=== PATIENT | male | born 1960 | race Caucasian/White ===

== ENCOUNTER 2021-07-12 14:18 | Emergency (ER) | payer OTHER ==
[2021-07-12] MEDS ORDERED: NA CHLORIDE 0.9% 1,000 ML ONE (14:55)
[2021-07-12] MEDS ORDERED: LORazepam 2 MG/ML VIAL ONE (14:59)
[2021-07-12 15:04] LABS: Absolute Lymphocytes (CBC) 1.4 K/uL (0.7-4.9); Basophils % 0.7 % (0-1.3); Hematocrit 42.2 % (39.6-49.0); Lymphocytes % 11.2 % (15.3-44.8); MPV 8.3 fL (7.6-11.3); RBC Red Blood Cell Count 4.46 M/uL (4.33-5.43)
[2021-07-12 15:08] LABS: Protime INR 1.11
[2021-07-12 15:29] LABS: Barbiturates NEGATIVE (NEGATIVE); Benzodiazepines NEGATIVE (NEGATIVE); Cocaine NEGATIVE (NEGATIVE); METHAMPHETAM NEGATIVE (NEGATIVE); Methadone NEGATIVE (NEGATIVE); Opiates NEGATIVE (NEGATIVE); Phencyclidine NEGATIVE (NEGATIVE); THC Cannibis NEGATIVE (NEGATIVE)
[2021-07-12 15:34] LABS: Urine Blood Negative (Negative); Urine Glucose Negative (Negative); Urine Protein Negative (Negative); Urine Specific Gravity 1.015 (1.005-1.030); Urine pH 5.5 (5.0-7.0)
[2021-07-12 15:39] LABS: ALT/SGPT 18 U/L (12-78); AST/SGOT 10 U/L (15-37); Albumin 3.2 g/dL (3.4-5.0); Alkaline Phosphatase 99 U/L (45-117); BUN Blood Urea Nitrogen 9 mg/dL (7-18); Bicarbonate 26 mmol/L (21-32); Bilirubin Direct < 0.1 mg/dL (0-0.2); Bilirubin Total 0.2 mg/dL (0.2-1.0); Glucose Level 164 mg/dL (74-106); Potassium 3.5 mmol/L (3.5-5.1); Protein, Total 6.6 g/dL (6.4-8.2); Sodium Level 140 mmol/L (136-145); Troponin (Emerg Dept Use Only) < 0.02 ng/mL (0.0-0.045)
--- NOTE | 2021-07-12 15:39 | RAD REPORT ---
EXAM DESCRIPTION: CT - Head Brain Wo Cont - 07/12/2021 3:29 pm CLINICAL HISTORY: DIZZINESS COMPARISON: HEAD BRAIN W O CONTRAST dated 01/15/2015 TECHNIQUE: All CT scans are performed using dose optimization technique as appropriate and may inclu de automated exposure control or mA/KV adjustment according to patient size. FINDINGS: No intracranial hemorrhage, hydrocephalus or extra-axial fluid collection.No areas of brai n edema or evidence of midline shift. The paranasal sinuses and mastoids are clear. The calvarium is intact. IMPRESSION: No acute intracranial abnormality.
--- NOTE | 2021-07-12 16:52 | ER ---
Nurse's Notes [facility] Name: Raghav Lispcomb Age: 61 yrs Sex: Male : 1960 Arrival Date: 07/12/2021 Time: 14:21 Bed 14 Private MD: Diagnosis: Other specified anxiety disorders Presentation: 07/12 14:22 Chief complaint: EMS states: toned out to [place] for anxiety attack. Coronavirus ld1 screen: At this time, the client does not indicate any symptoms associated with coronavirus-19. Ebola Screen: No symptoms or risks identified at this time. Initial Sepsis Screen: Does the patient meet any 2 criteria? No. Patient's initial sepsis screen is negative. Does the patient have a suspected source of infection? No. Patient's initial sepsis screen is negative. Risk Assessment: Do you want to hurt yourself or someone else? Patient reports no desire to harm self or others. Onset of symptoms was July 12, 2021. 14:22 Method Of Arrival: EMS: [facility] ld1 14:22 Acuity: SINDY 3 ld1 Triage Assessment: 14:24 General: Appears in no apparent distress. comfortable, Behavior is cooperative, ld1 appropriate for age, anxious. Pain: Denies pain. EENT: No signs and/or symptoms were reported regarding the EENT system. Neuro: Level of Consciousness is awake, alert, obeys commands, Oriented to person, place, time, situation. Neuro: Reports anxiety . Cardiovascular: Capillary refill < 3 seconds Patient's skin is warm and dry. Cardiovascular: Rhythm is sinus rhythm. Respiratory: Airway is patent Respiratory effort is even, unlabored, Respiratory pattern is regular, symmetrical. GI: Abdomen is flat, non-distended. : No signs and/or symptoms were reported regarding the genitourinary system. Derm: No signs and/or symptoms reported regarding the dermatologic system. Musculoskeletal: No signs and/or symptoms reported regarding the musculoskeletal system. Historical: - Allergies: 14:24 No Known Allergies; ld1 - Home Meds: 14:24 metformin Oral [Active]; ld1 - PMHx: 14:24 Pacemaker; Schizophrenia; Diabetes mellitus; ld1 - PSHx: 14:24 None; ld1 - Immunization history:: Adult Immunizations up to date, Client reports receiving the 2nd dose of the Covid vaccine. - Social history:: Smoking status: Patient reports the use of cigarette tobacco products, smokes two packs cigarettes per day. Patient/guardian denies using alcohol. Screenin:34 Abuse screen: Denies threats or abuse. Denies injuries from another. Nutritional jt3 screening: No deficits noted. Tuberculosis screening: No symptoms or risk factors identified. Fall Risk None identified. Assessment: 14:34 General: Appears unkempt, Behavior is calm, cooperative. Pain: Denies pain. Neuro: jt3 Reports dizziness, since Pt. reports dizziness since yesterday and is hearing voices. Pt. has past medical hx of schizophrenia. Alert and oriented x4. Denies pain at this time. Airway patent. Denies chest pain. Cardiovascular: No deficits noted. Respiratory: No deficits noted. 15:27 Reassessment: CSSRS: Low Risk. Patient answered "No" to 1,2, and 6. . jt3 16:30 Reassessment: Pt. states his anxiety is better after the Ativan medication. Pt. resting jt3 comfortably in bed. . Vital Signs: 14:22 BP 106 / 54; Pulse 90; Resp 22; Temp 98.7(TE); Pulse Ox 98% on R/A; Weight 86.18 kg; ld1 Height 5 ft. 11 in. (180.34 cm); Pain 0/10; 16:54 BP 109 / 70; Pulse 76; Resp 17; Pulse Ox 100% on R/A; jt3 14:22 Body Mass Index 26.50 (86.18 kg, 180.34 cm) ld1 ED Course: 14:21 Patient arrived in ED. jt3 14:22 Lizandro Fan PA is PHCP. jmm 14:22 Sukhwinder Zuluaga MD is Attending Physician. jmm 14:24 Triage completed. ld1 14:24 Arm band placed on right wrist. ld1 14:34 Lenny Clemons RN is Primary Nurse. jt3 14:34 Patient has correct armband on for positive identification. Bed in low position. Call jt3 light in reach. Side rails up X2. 14:34 No provider procedures requiring assistance completed. Inserted saline lock: 20 gauge jt3 in right antecubital area, using aseptic technique. 15:27 CT Head Brain wo Cont In Process Unspecified. EDMS 16:59 IV discontinued, intact, bleeding controlled, No redness/swelling at site. Pressure jt3 dressing applied. Administered Medications: 15:15 Drug: NS 0.9% 1000 ml Route: IV; Rate: 1 bolus; Site: right antecubital; jt3 15:15 Drug: Ativan (LORazepam) 1 mg Route: IVP; Site: right antecubital; jt3 16:00 Follow up: Response: No adverse reaction; Anxiety decreased jt3 Outcome: 16:51 Discharge ordered by MD. disla 16:58 Discharged to home ambulatory. jt3 16:58 Condition: improved 16:58 Discharge instructions given to patient. 17:01 Patient left the ED. jt3 Signatures: Dispatcher [employer] EDMS Lizandro Fan PA PA jmm Dibbern, Lauren RN RN ld1 Lenny Clemons RN RN jt3
--- NOTE | 2021-07-12 16:52 | EDPHYS ---
Physician Documentation [facility] Name: Raghav Lipscomb Age: 61 yrs Sex: Male : 1960 Arrival Date: 07/12/2021 Time: 14:21 Bed 14 Private MD: ED Physician Sukhwinder Zuluaga HPI: 07/12 14:46 This 61 yrs old Male presents to ER via EMS with complaints of anxiety. jmm 14:46 The patient presents to the emergency department with anxiety. Onset: The jmm symptoms/episode began/occurred today. Past psychiatric history: schizophrenia. Associated signs and symptoms: Pertinent positives; Dizziness, Pertinent negatives:. The patient has experienced similar episodes in the past, several times. This is a 61-year-old male with history of diabetes mellitus, schizophrenia that presents emerged department with complaints of acute onset anxiety beginning today. Patient denies any acute stressor states that it comes from "just living" patient denies SI or HI. Patient also states having a bit of dizziness with which normally accompanies his anxiety panic attacks. Historical: - Allergies: 14:24 No Known Allergies; ld1 - Home Meds: 14:24 metformin Oral [Active]; ld1 - PMHx: 14:24 Pacemaker; Schizophrenia; Diabetes mellitus; ld1 - PSHx: 14:24 None; ld1 - Immunization history:: Adult Immunizations up to date, Client reports receiving the 2nd dose of the Covid vaccine. - Social history:: Smoking status: Patient reports the use of cigarette tobacco products, smokes two packs cigarettes per day. Patient/guardian denies using alcohol. ROS: 14:46 Constitutional: Negative for fever, chills, and weight loss, Cardiovascular: Negative jmm for chest pain, palpitations, and edema, Respiratory: Negative for shortness of breath, cough, wheezing, and pleuritic chest pain. 14:46 Neuro: Positive for dizziness. 14:46 Psych: Positive for anxiety. 14:46 All other systems are negative. Exam: 14:46 Constitutional: This is a well developed, well nourished patient who is awake, alert, jmm and in no acute distress. Head/Face: atraumatic. Eyes: EOMI, no conjunctival erythema appreciated ENT: Moist Mucus Membranes Neck: Trachea midline, Supple Chest/axilla: Normal chest wall appearance and motion. Cardiovascular: Regular rate and rhythm. No edema appreciated Respiratory: Normal respirations, no respiratory distress appreciated Abdomen/GI: Non distended, soft Back: Normal ROM Skin: General appearance color normal MS/ Extremity: Moves all extremities, no obvious deformities appreciated, no edema noted to the lower extremities 14:46 Neuro: Facial tic noted. 14:46 Psych: Behavior/mood is cooperative, anxious. 16:26 ECG was reviewed by the Attending Physician. rn Vital Signs: 14:22 BP 106 / 54; Pulse 90; Resp 22; Temp 98.7(TE); Pulse Ox 98% on R/A; Weight 86.18 kg; ld1 Height 5 ft. 11 in. (180.34 cm); Pain 0/10; 16:54 BP 109 / 70; Pulse 76; Resp 17; Pulse Ox 100% on R/A; jt3 14:22 Body Mass Index 26.50 (86.18 kg, 180.34 cm) ld1 MDM: 14:45 Patient medically screened. [facility] 16:50 Data reviewed: vital signs, nurses notes. Counseling: I had a detailed discussion with naif the patient and/or guardian regarding: the historical points, exam findings, and any diagnostic results supporting the discharge/admit diagnosis, lab results, radiology results, the need for outpatient follow up, to return to the emergency department if symptoms worsen or persist or if there are any questions or concerns that arise at home. ED course: Patient states feeling much better. Most likely anxiety episode the patient experienced. Patient is otherwise advised to follow-up with his psychiatrist/PCP and otherwise given strict return precautions. Patient understood and agrees plan of care.. 07/12 14:46 Order name: Acetaminophen; Complete Time: 15:48 [facility] 07/12 14:46 Order name: Basic Metabolic Panel; Complete Time: 15:48 [facility] 07/12 14:46 Order name: CBC with Diff; Complete Time: 15:18 [facility] 07/12 14:46 Order name: ETOH Level; Complete Time: 15:44 [facility] 07/12 14:46 Order name: Hepatic Function; Complete Time: 15:48 [facility] 07/12 14:46 Order name: PT-INR; Complete Time: 15:18 [facility] 07/12 14:46 Order name: Ptt, Activated; Complete Time: 15:18 [facility] 07/12 14:46 Order name: Salicylate; Complete Time: 15:39 [facility] 07/12 14:46 Order name: Urine Drug Screen; Complete Time: 15:33 [facility] 07/12 14:46 Order name: Troponin (emerg Dept Use Only); Complete Time: 15:48 [facility] 07/12 14:50 Order name: CT Head Brain wo Cont; Complete Time: 15:44 [facility] 07/12 15:33 Order name: Urine Dipstick-Ancillary; Complete Time: 15:39 [facility] 07/12 14:46 Order name: EKG; Complete Time: 14:47 [facility] 07/12 14:46 Order name: EKG - Nurse/Tech; Complete Time: 15:01 [facility] 07/12 14:46 Order name: IV Saline Lock; Complete Time: 15:01 [facility] 07/12 14:46 Order name: Labs collected and sent; Complete Time: 15:01 [facility] 07/12 14:46 Order name: Suicide Screening ([place]); Complete Time: 15:15 [facility] 07/12 14:46 Order name: Urine Dipstick-Ancillary (obtain specimen); Complete Time: 15:37 [facility] EC:26 Rate is 87 beats/min. Rhythm is regular. QRS [place] is Normal. ID interval is normal. QRS rn interval is normal. QT interval is normal. No Q waves. T waves are Normal. No ST changes noted. Clinical impression: Normal ECG. Interpreted by me. Reviewed by me. Administered Medications: 15:15 Drug: NS 0.9% 1000 ml Route: IV; Rate: 1 bolus; Site: right antecubital; jt3 15:15 Drug: Ativan (LORazepam) 1 mg Route: IVP; Site: right antecubital; jt3 16:00 Follow up: Response: No adverse reaction; Anxiety decreased jt3 Disposition: 17:35 Co-signature as Attending Physician, Sukhwinder Zuluaga MD I agree with the assessment and rn plan of care. Attestation: The patient's history, exam findings, diagnostics, and a summary of any interventions or procedures was reviewed in detail with Lizandro ESQUIVEL. Disposition Summary: 07/12/21 16:51 Discharge Ordered Location: Home [facility] Condition: Stable jm Diagnosis - Other specified anxiety disorders [facility] Followup: [facility] - With: Private Physician - When: 2 - 3 days - Reason: Recheck today's complaints, Continuance of care, Re-evaluation by your physician Discharge Instructions: - Discharge Summary Sheet naif - Managing Anxiety, Adult naif Forms: - Medication Reconciliation Form naif - Thank You Letter naif - Antibiotic Education naif - Prescription Opioid Use naif Signatures: Dispatcher [employer] EDLizandro Resendiz PA PA jmm Nieto, Roman, MD MD rn Dibbern, Lauren, RN RN ld1 TeLenny león RN RN jt3
[2021-07-12 18:29] VITALS: TEMP 98.7
[2021-07-12 18:30] VITALS: BP 109/70; O2SAT 100
--- OUTSIDE RECORDS SUMMARY | 2021-07-22 09:59 | XMS REPORT | Continuity of Care Document ---
:1960 Author Organization [facility] t Address [address] [place] [address] Care Team Providers Name Role Phone Luana MORALES Primary Care Physician ALTAMIRANO Attending Clinician Unavailable Luana MORALES Attending Clinician LUANA Attending Clinician Unavailable SHADE EDWARDS Attending Clinician Unavailable Nurse, Pob Immunization Attending Clinician Unavailable Shade Edwards DO Attending Clinician SISSY K.Jeffery. Attending Clinician Unavailable 2, Lab Attending Clinician Unavailable Radha LEONARDO Attending Clinician Unavailable Aj MORALES Attending Clinician Lex MORALES S Attending Clinician Bebeto MORALES Attending Clinician YARITZA Attending Clinician Unavailable Lily Iverson Attending Clinician TRAVIS SOARES Attending Clinician Unavailable Provider, Urgent Care Attending Clinician Unavailable Travis Dominique Attending Clinician Sanju BASS Attending Clinician Unavailable Neal LEONARDO L Attending Clinician Unavailable Margarita Marley Attending Clinician See DO, J Attending Clinician Pob, Lab Main Attending Clinician Unavailable Camille MORALES, C Attending Clinician Rome LEIJA, G Attending Clinician Doctor Unassigned, Name Attending Clinician Unavailable King ANDREW, C Attending Clinician Bebeto MORALES Admitting Clinician Payers Payer Name Policy Type Policy Number Effective Date Expiration Date Eunice finney MEDICARE PART A [id number] 2002 \\T\\ B 00:00:00 MEDICAID [facility] [id number] 2020 00:00:00 [employer] MEDICARE [id number] 2019 00:00:00 [employer] [facility] [id number] 2019 [facility] 00:00:00 [facility] MEDICARE [id number] 2021 COMPLETE CHOICE 00:00:00 [id number] 2019 PLUS CHOICE 00:00:00 Problems Condition Condition Condition Status Onset Resolution Last Treating Co mments Source Name Details Category Date Date Treatment Clinician Date Hypotensio Hypotensio Disease Active U nivers n n 3-15 ity of 00:00: [address] Fall at Fall at Disease Active Univers home, home, 3-03 ity of sequela sequela 00:00: [address] Injury of Injury of Disease Active Uni vers head, head, 3-03 ity of sequela sequela 00:00: [place] [facility] Hypovolemi Hypovolemi Disease Active U nivers a a 1-26 ity of 00:00: [address] Orthostati Orthostati Disease Active U nivers c c 1-25 ity of hypotensio hypotensio 00:00: [place] [facility] Disease Active 2019-09 Unive rs discharge discharge 2- ity of follow-up [place]up [place] [facility] Essential Essential Disease Active 2019-09 Uni vers hypertensi hypertensi 2-01 it y of on on 00:00: [address] Cigarette Cigarette Disease Active 2019-09 Uni vers nicotine nicotine 2-01 [place] dependence [place] without 00 Medical complicati complicati Br anch on on Hyperchole Hyperchole Disease Active U nivers sterolemia sterolemia 5-05 it y of 00:00: [place] [facility] Hypothyroi Hypothyroi Disease Active U nivers dism, dism, 5-05 ity of unspecifie unspecifie [place] d type 00 [facility] Diabetes Diabetes Disease Active Unive rs mellitus mellitus 5-05 ity of type 1.5 type 1.5 00:00: [place] 00 Medical Branch Need for Need for Disease Active 2018-09 Unive rs 23-polyval 23-polyval 0-01 it y of ent ent 00:00: [place] pneumococc pneumococc 00 Me dical al al Branch polysaccha polysaccha ride ride vaccine vaccine Need for Need for Disease Active 2018-09 Unive rs influenza influenza 0-01 ity of vaccinatio vaccinatio [place] 00 [facility] Need for Need for Disease Active 2018-09 Unive rs hepatitis hepatitis 0-01 ity of C C 00:00: [place] screening screening 00 Medi arnel test test Branch Diabetic Diabetic Disease Active 2018-09 Unive rs eye exam eye exam 0-01 ity of 00:00: [place] 00 Medical Branch Need for Need for Disease Active 2018-09 Unive rs Tdap Tdap 0-01 ity of vaccinatio vaccinatio [place] [facility] Type 2 Type 2 Disease Active Univers diabetes diabetes 9-14 ity of mellitus mellitus 00:00: [place] without without 00 Medical complicati complicati Br anch on, on, without without long-term long-term current current use of use of insulin insulin Hearing Hearing Disease Active 2016-09 Univers loss loss 2-05 ity of 00:00: [place] 00 Medical Branch Multiple Multiple Disease Active Unive rs pulmonary pulmonary 6-08 ity of nodules nodules 00:00: [place] determined determined 00 Me dical by by Branch computed computed tomography tomography of lung of lung Pacemaker Pacemaker Disease Active Uni vers 6-08 ity of 00:00: [place] [facility] 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 ICD10 Diagnosis Term Receiving Clerk Utility Tobacco Tobacco Disease Active Univers abuse abuse 12-31 ity of 00:00: [place] 00 [facility] Vitamin D Vitamin D Disease Active Overview: Univers deficiency deficiency 12-31 Formattin ity of 00:00: g of this [place] 00 note Medical might be Branch different from the original. ICD10 Diagnosis Term Receiving Clerk Utility Schizophre Schizophre Disease Active U nivers troy, troy, 12-31 ity of unspecifie unspecifie [place] d type 00 [facility] Allergies, Adverse Reactions, Alerts Allergy Allergy Status Severity Reaction(s) Onset Inactive Treating Comm ents Source Name Type Date Date Clinician NO KNOWN Drug Active Univers ALLERGIE Class ity of S [facility] Social History Social Habit Start Date Stop Date Quantity Comments Source History of tobacco Cigarette Smoker University of use [facility] Exposure to Not sure [facility] SARS-CoV-2 (event) [facility] Alcohol intake 2021-03-17 2021-03-17 0 /d University of 00:00:00 00:00:00 [facility] Tobacco Comment 2020-11-21 2020-11-21 1 pk per day Univers ity of 00:00:00 00:00:00 [facility] Cigarettes smoked 2014-12-31 2014-12-31 Univers ity of current (pack per 00:00:00 00:00:00 ) - Reported Branch Cigarette 2014-12-31 2014-12-31 University of pack-years 00:00:00 00:00:00 [facility] Tobacco use and 2014-12-31 2014-12-31 Never used Universit y of exposure 00:00:00 00:00:00 [place] [facility] Sex [birth year] Universit y of 00:00:00 00:00:00 [facility] Smoking Status Start Date Stop Date Source Current every day smoker 2014-12-31 00[facility]00:00 [facility] Ordered Filled Start Stop Current Ordering Indication Dosage Frequency Signature Comments Components Source Medication Medication Date Date Medication? Clinician (SIG) Name Name levothyroxi Yes 25ug Take 1 Univ ers ne 25 mcg 7-02 tablet by ity o f tablet 00:00: mouth [place] 00 every Medical morning. Branch midodrine Yes [id number] Take 1 Un [place] 2.5 mg 7-02 tablet by ity of tablet 00:00: mouth [place] 00 daily PRN Medical if BP Branch <80/60. glipiZIDE 5 Yes [id number] 5mg Take 1 Univers mg tablet 7-02 tablet by ity o f 00:00: mouth [place] 00 daily. Medical Branch levothyroxi Yes 25ug Take 1 Univ ers ne 25 mcg 7-02 tablet by ity o f tablet 00:00: mouth [place] 00 every Medical morning. Branch midodrine Yes [id number] Take 1 Un [place] 2.5 mg 7-02 tablet by ity of tablet 00:00: mouth [place] 00 daily PRN Medical if BP Branch <80/60. glipiZIDE 5 Yes [id number] 5mg Take 1 Univers mg tablet 7-02 tablet by ity o f 00:00: mouth [place] 00 daily. Medical Branch levothyroxi Yes 25ug Take 1 Univ ers ne 25 mcg 7-02 tablet by ity o f tablet 00:00: mouth [place] 00 every Medical morning. Branch midodrine Yes [id number] Take 1 Un [place] 2.5 mg 7-02 tablet by ity of tablet 00:00: mouth [place] 00 daily PRN Medical if BP Branch <80/60. glipiZIDE 5 Yes [id number] 5mg Take 1 Univers mg tablet 7-02 tablet by ity o f 00:00: mouth [place] 00 daily. Medical Branch levothyroxi Yes 25ug Take 1 Univ ers ne 25 mcg 7-02 tablet by ity o f tablet 00:00: mouth [place] 00 every Medical morning. Branch midodrine Yes [id number] Take 1 Un [place] 2.5 mg 7-02 tablet by ity of tablet 00:00: mouth [place] 00 daily PRN Medical if BP Branch <80/60. glipiZIDE 5 Yes [id number] 5mg Take 1 Univers mg tablet 7-02 tablet by ity o f 00:00: mouth [place] 00 daily. Medical Branch levothyroxi 0 Yes 25ug Take 1 Univ ers ne 25 mcg 7-02 tablet by ity o f tablet 00:00: mouth [place] 00 every Medical morning. Branch midodrine Yes [id number] Take 1 Un [place] 2.5 mg 7-02 tablet by ity of tablet 00:00: mouth [place] 00 daily PRN Medical if BP Branch <80/60. glipiZIDE 5 Yes [id number] 5mg Take 1 Univers mg tablet 7-02 tablet by ity o f 00:00: mouth [place] 00 daily. Medical Branch levothyroxi Yes 25ug Take 1 Univ ers ne 25 mcg 7-02 tablet by ity o f tablet 00:00: mouth [place] 00 every Medical morning. Branch midodrine Yes [id number] Take 1 Un [place] 2.5 mg 7-02 tablet by ity of tablet 00:00: mouth [place] 00 daily PRN Medical if BP Branch <80/60. levothyroxi Yes 25ug Take 1 Univ ers ne 25 mcg 7-02 tablet by ity o f tablet 00:00: mouth [place] 00 every Medical morning. Branch midodrine 2020- Yes [id number] Take 1 Un [place] 2.5 mg 7-02 tablet by ity of tablet 00:00: mouth [place] 00 daily PRN Medical if BP Branch <80/60. glipiZIDE 5 Yes [id number] 5mg Take 1 Univers mg tablet 7-02 tablet by ity o f 00:00: mouth [place] 00 daily. Medical Branch glipiZIDE 5 2020-0 Yes [id number] 5mg Take 1 Univers mg tablet 7-02 tablet by ity o f 00:00: mouth [place] 00 daily. Medical Branch levothyroxi 2020-0 Yes 25ug Take 1 Univ ers ne 25 mcg 7-02 tablet by ity o f tablet 00:00: mouth [place] 00 every Medical morning. Branch midodrine Yes [id number] Take 1 Un [place] 2.5 mg 7-02 tablet by ity of tablet 00:00: mouth [place] 00 daily PRN Medical if BP Branch <80/60. glipiZIDE 5 Yes [id number] 5mg Take 1 Univers mg tablet 7-02 tablet by ity o f 00:00: mouth [place] 00 daily. Medical Branch levothyroxi Yes 25ug Take 1 Univ ers ne 25 mcg 7-02 tablet by ity o f tablet 00:00: mouth [place] 00 every Medical morning. Branch midodrine Yes [id number] Take 1 Un [place] 2.5 mg 7-02 tablet by ity of tablet 00:00: mouth [place] 00 daily PRN Medical if BP Branch <80/60. glipiZIDE 5 Yes [id number] 5mg Take 1 Univers mg tablet 7-02 tablet by ity o f 00:00: mouth [place] 00 daily. Medical Branch levothyroxi Yes 25ug Take 1 Univ ers ne 25 mcg 7-02 tablet by ity o f tablet 00:00: mouth [place] 00 every Medical morning. Branch midodrine Yes [id number] Take 1 Un [place] 2.5 mg 7-02 tablet by ity of tablet 00:00: mouth [place] 00 daily PRN Medical if BP Branch <80/60. glipiZIDE 5 Yes [id number] 5mg Take 1 Univers mg tablet 7-02 tablet by ity o f 00:00: mouth [place] 00 daily. Medical Branch ATORVASTATI Yes [id number] TAKE ONE Univers N 40 mg 3-31 TABLET BY ity of tablet 00:00: MOUTH AT [place] 00 BEDTIME Medical Branch FUROSEMIDE 2020-0 Yes [id number] TAKE ONE Univers 20 mg 3-31 TABLET BY ity of tablet 00:00: MOUTH [place] 00 DAILY Medical Branch ATORVASTATI 2020- Yes [id number] TAKE ONE Univers N 40 mg 3-31 TABLET BY ity of tablet 00:00: MOUTH AT [place] 00 BEDTIME Medical Branch ATORVASTATI 2020- Yes [id number] TAKE ONE Univers N 40 mg 3-31 TABLET BY ity of tablet 00:00: MOUTH AT [place] [facility] Yes [id number] TAKE ONE Univers N 40 mg 3-31 TABLET BY ity of tablet 00:00: MOUTH AT [place] [facility] Yes [id number] TAKE ONE Univers N 40 mg 3-31 TABLET BY ity of tablet 00:00: MOUTH AT [place] [facility] Yes [id number] TAKE ONE Univers N 40 mg 3-31 TABLET BY ity of tablet 00:00: MOUTH AT [place] [facility] Yes [id number] TAKE ONE Univers N 40 mg 3-31 TABLET BY ity of tablet 00:00: MOUTH AT [place] [facility] Yes [id number] TAKE ONE Univers N 40 mg 3-31 TABLET BY ity of tablet 00:00: MOUTH AT [place] [facility] Yes [id number] TAKE ONE Univers N 40 mg 3-31 TABLET BY ity of tablet 00:00: MOUTH AT [place] [facility] Yes [id number] TAKE ONE Univers N 40 mg 3-31 TABLET BY ity of tablet 00:00: MOUTH AT [place] [facility] Yes [id number] TAKE ONE Univers N 40 mg 3-31 TABLET BY ity of tablet 00:00: MOUTH AT [place] [facility] Yes [id number] TAKE ONE Univers N 40 mg 3-31 TABLET BY ity of tablet 00:00: MOUTH AT [place] [facility] Yes [id number] TAKE ONE Univers N 40 mg 3-31 TABLET BY ity of tablet 00:00: MOUTH AT [place] [facility] Yes [id number] TAKE ONE Univers N 40 mg 3-31 TABLET BY ity of tablet 00:00: MOUTH AT [address] Yes [id number] TAKE ONE Univers N 40 mg 3-31 TABLET BY ity of tablet 00:00: MOUTH AT [place] [facility] Yes [id number] TAKE ONE Univers N 40 mg 3-31 TABLET BY ity of tablet 00:00: MOUTH AT [place] 00 BEDTIME Medical Branch FUROSEMIDE 2020-0 2020- No [id number] TAKE ONE Univers 20 mg 3-31 -02 TABLET BY ity of tablet 00:00: 00:00 MOUTH [place] 00 : DAILY Medical Branch FUROSEMIDE 0 2020- No [id number] TAKE ONE Univers 20 mg 3-31 04-02 TABLET BY ity of tablet 00:00: 00:00 [facility] 00 :00 DAILY Medical Branch midodrine Yes [id number] Take 1 Un [place] 2.5 mg 3-25 tablet by ity of tablet 00:00: mouth [place] daily PRN Medical if BP Branch <80/60. midodrine Yes [id number] Take 1 Un [place] 2.5 mg 3-25 tablet by ity of tablet 00:00: mouth [place] daily PRN Medical if BP Branch <80/60. midodrine Yes [id number] Take 1 Un [place] 2.5 mg 3-25 tablet by ity of tablet 00:00: mouth [place] daily PRN Medical if BP Branch <80/60. midodrine Yes [id number] Take 1 Un [place] 2.5 mg 3-25 tablet by ity of tablet 00:00: [facility] 00 daily PRN Medical if BP Branch <80/60. midodrine Yes [id number] Take 1 Un [place] 2.5 mg 3-25 tablet by ity of tablet 00:00: [facility] daily PRN Medical if BP Branch <80/60. midodrine Yes [id number] Take 1 Un [place] 2.5 mg 3-25 tablet by ity of tablet 00:00: mouth [place] 00 daily PRN Medical if BP Branch <80/60. midodrine Yes [id number] Take 1 [facility] [place] 2.5 mg 3-25 tablet by ity of tablet 00:00: mouth [place] 00 daily PRN Medical if BP Branch <80/60. midodrine Yes [id number] Take 1 [facility] [place] 2.5 mg 3-25 tablet by ity of tablet 00:00: mouth [place] 00 daily PRN Medical if BP Branch <80/60. midodrine Yes [id number] Take 1 [facility] [place] 2.5 mg 3-25 tablet by ity of tablet 00:00: mouth [place] 00 daily PRN Medical if BP Branch <80/60. midodrine Yes [id number] Take 1 [facility] [place] 2.5 mg 3-25 tablet by ity of tablet 00:00: mouth [place] 00 daily PRN Medical if BP Branch <80/60. midodrine 2020- No [id number] Take 1 U nivers 2.5 mg 3-25 -02 tablet by ity of tablet 00:00: 00:00 mouth [place] 00 :00 daily PRN Medical if BP Branch <80/60. midodrine 2020- No [id number] Take 1 U nivers 2.5 mg 3-25 - tablet by ity of tablet 00:00: 00:00 mouth [place] 00 :00 daily PRN Medical if BP Branch <80/60. prazosin 2020- No 2mg Take 2 mg Uni vers HCl 3-19 03-19 by mouth 2 ity of (PRAZOSIN 17:08: 00:00 (two) [place] ORAL) 09 :00 times Medical daily as Branch needed for Insomnia. prazosin 2020- No 2mg Take 2 mg Uni vers HCl 3-19 03-19 by mouth 2 ity of (PRAZOSIN 17:08: 00:00 (two) [place] ORAL) 09 :00 times Medical daily as Branch needed for Insomnia. midodrine Yes [id number] 2.5mg Take 1 U nivers 2.5 mg 3-19 tablet by ity of tablet 00:00: mouth [place] 00 daily. Medical Branch nicotine 7 Yes [id number] 1{patch Apply 1 Univers mg/24 hr 3-19 } Patch to ity of patch 00:00: area(s) [place] 00 every 24 Medical (twenty-fo Branch ur) hours. Apply 21mg patch daily x 6 weeks; then apply 14mf patch daily x 2 weeks; then apply 7mg patch daily x 2 weeks. Stop smoking on initiation of therapy nicotine 14 2020- Yes [id number] 1{patch Apply 1 Univers mg/24 hr 3-19 } Patch to ity of patch 00:00: area(s) [place] 00 every 24 Medical (twenty-fo Branch ur) hours. Apply 21mg patch daily x 6 weeks; then apply 14mf patch daily x 2 weeks; then apply 7mg patch daily x 2 weeks. Stop smoking on initiation of therapy nicotine Yes [id number] 1{patch Apply 1 Univers mg/24 hr 3-19 } Patch to ity of patch 00:00: area(s) [place] 00 daily. Medical Apply 21mg Branch patch daily x 6 weeks; then apply 14mf patch daily x 2 weeks; then apply 7mg patch daily x 2 weeks. Stop smoking on initiation of therapy nicotine Yes [id number] 1{patch Apply 1 Univers mg/24 hr 3-19 } Patch to ity of patch 00:00: area(s) [place] 00 every 24 Medical (twenty-fo Branch ur) hours. Apply 21mg patch daily x 6 weeks; then apply 14mf patch daily x 2 weeks; then apply 7mg patch daily x 2 weeks. Stop smoking on initiation of therapy nicotine Yes [id number] 1{patch Apply 1 Univers mg/24 hr 3-19 } Patch to ity of patch 00:00: area(s) [place] 00 every 24 Medical (twenty-fo Branch ur) hours. Apply 21mg patch daily x 6 weeks; then apply 14mf patch daily x 2 weeks; then apply 7mg patch daily x 2 weeks. Stop smoking on initiation of therapy nicotine Yes [id number] 1{patch Apply 1 Univers mg/24 hr 3-19 } Patch to ity of patch 00:00: area(s) [place] 00 daily. Medical Apply 21mg Branch patch daily x 6 weeks; then apply 14mf patch daily x 2 weeks; then apply 7mg patch daily x 2 weeks. Stop smoking on initiation of therapy nicotine Yes [id number] 1{patch Apply 1 Univers mg/24 hr 3-19 } Patch to ity of patch 00:00: area(s) [place] 00 every 24 Medical (twenty-fo Branch ur) hours. Apply 21mg patch daily x 6 weeks; then apply 14mf patch daily x 2 weeks; then apply 7mg patch daily x 2 weeks. Stop smoking on initiation of therapy nicotine Yes [id number] 1{patch Apply 1 Univers mg/24 hr 3-19 } Patch to ity of patch 00:00: area(s) [place] 00 every 24 Medical (twenty-fo Branch ur) hours. Apply 21mg patch daily x 6 weeks; then apply 14mf patch daily x 2 weeks; then apply 7mg patch daily x 2 weeks. Stop smoking on initiation of therapy nicotine Yes [id number] 1{patch Apply 1 Univers mg/24 hr 3-19 } Patch to ity of patch 00:00: area(s) [place] 00 daily. Medical Apply 21mg Branch patch daily x 6 weeks; then apply 14mf patch daily x 2 weeks; then apply 7mg patch daily x 2 weeks. Stop smoking on initiation of therapy nicotine Yes [id number] 1{patch Apply 1 Univers mg/24 hr 3-19 } Patch to ity of patch 00:00: area(s) [place] 00 every 24 Medical (twenty-fo Branch ur) hours. Apply 21mg patch daily x 6 weeks; then apply 14mf patch daily x 2 weeks; then apply 7mg patch daily x 2 weeks. Stop smoking on initiation of therapy nicotine Yes [id number] 1{patch Apply 1 Univers mg/24 hr 3-19 } Patch to ity of patch 00:00: area(s) [place] 00 every 24 Medical (twenty-fo Branch ur) hours. Apply 21mg patch daily x 6 weeks; then apply 14mf patch daily x 2 weeks; then apply 7mg patch daily x 2 weeks. Stop smoking on initiation of therapy nicotine Yes [id number] 1{patch Apply 1 Univers mg/24 hr 3-19 } Patch to ity of patch 00:00: area(s) [place] 00 daily. Medical Apply 21mg Branch patch daily x 6 weeks; then apply 14mf patch daily x 2 weeks; then apply 7mg patch daily x 2 weeks. Stop smoking on initiation of therapy nicotine Yes [id number] 1{patch Apply 1 Univers mg/24 hr 3-19 } Patch to ity of patch 00:00: area(s) [place] 00 every 24 Medical (twenty-fo Branch ur) hours. Apply 21mg patch daily x 6 weeks; then apply 14mf patch daily x 2 weeks; then apply 7mg patch daily x 2 weeks. Stop smoking on initiation of therapy nicotine Yes [id number] 1{patch Apply 1 Univers mg/24 hr 3-19 } Patch to ity of patch 00:00: area(s) [place] 00 every 24 Medical (twenty-fo Branch ur) hours. Apply 21mg patch daily x 6 weeks; then apply 14mf patch daily x 2 weeks; then apply 7mg patch daily x 2 weeks. Stop smoking on initiation of therapy nicotine Yes [id number] 1{patch Apply 1 Univers mg/24 hr 3-19 } Patch to ity of patch 00:00: area(s) [place] 00 daily. Medical Apply 21mg Branch patch daily x 6 weeks; then apply 14mf patch daily x 2 weeks; then apply 7mg patch daily x 2 weeks. Stop smoking on initiation of therapy nicotine Yes [id number] 1{patch Apply 1 Univers mg/24 hr 3-19 } Patch to ity of patch 00:00: area(s) [place] 00 every 24 Medical (twenty-fo Branch ur) hours. Apply 21mg patch daily x 6 weeks; then apply 14mf patch daily x 2 weeks; then apply 7mg patch daily x 2 weeks. Stop smoking on initiation of therapy nicotine Yes [id number] 1{patch Apply 1 Univers mg/24 hr 3-19 } Patch to ity of patch 00:00: area(s) [place] 00 every 24 Medical (twenty-fo Branch ur) hours. Apply 21mg patch daily x 6 weeks; then apply 14mf patch daily x 2 weeks; then apply 7mg patch daily x 2 weeks. Stop smoking on initiation of therapy nicotine Yes [id number] 1{patch Apply 1 Univers mg/24 hr 3-19 } Patch to ity of patch 00:00: area(s) [place] 00 daily. Medical Apply 21mg Branch patch daily x 6 weeks; then apply 14mf patch daily x 2 weeks; then apply 7mg patch daily x 2 weeks. Stop smoking on initiation of therapy nicotine Yes [id number] 1{patch Apply 1 Univers mg/24 hr 3-19 } Patch to ity of patch 00:00: area(s) [place] 00 every 24 Medical (twenty-fo Branch ur) hours. Apply 21mg patch daily x 6 weeks; then apply 14mf patch daily x 2 weeks; then apply 7mg patch daily x 2 weeks. Stop smoking on initiation of therapy nicotine Yes [id number] 1{patch Apply 1 Univers mg/24 hr 3-19 } Patch to ity of patch 00:00: area(s) [place] 00 every 24 Medical (twenty-fo Branch ur) hours. Apply 21mg patch daily x 6 weeks; then apply 14mf patch daily x 2 weeks; then apply 7mg patch daily x 2 weeks. Stop smoking on initiation of therapy nicotine Yes [id number] 1{patch Apply 1 Univers mg/24 hr 3-19 } Patch to ity of patch 00:00: area(s) [place] 00 daily. Medical Apply 21mg Branch patch daily x 6 weeks; then apply 14mf patch daily x 2 weeks; then apply 7mg patch daily x 2 weeks. Stop smoking on initiation of therapy nicotine Yes [id number] 1{patch Apply 1 Univers mg/24 hr 3-19 } Patch to ity of patch 00:00: area(s) [place] 00 every 24 Medical (twenty-fo Branch ur) hours. Apply 21mg patch daily x 6 weeks; then apply 14mf patch daily x 2 weeks; then apply 7mg patch daily x 2 weeks. Stop smoking on initiation of therapy nicotine Yes [id number] 1{patch Apply 1 Univers mg/24 hr 3-19 } Patch to ity of patch 00:00: area(s) [place] 00 every 24 Medical (twenty-fo Branch ur) hours. Apply 21mg patch daily x 6 weeks; then apply 14mf patch daily x 2 weeks; then apply 7mg patch daily x 2 weeks. Stop smoking on initiation of therapy nicotine Yes [id number] 1{patch Apply 1 Univers mg/24 hr 3-19 } Patch to ity of patch 00:00: area(s) [place] 00 daily. Medical Apply 21mg Branch patch daily x 6 weeks; then apply 14mf patch daily x 2 weeks; then apply 7mg patch daily x 2 weeks. Stop smoking on initiation of therapy nicotine Yes [id number] 1{patch Apply 1 Univers mg/24 hr 3-19 } Patch to ity of patch 00:00: area(s) [place] 00 every 24 Medical (twenty-fo Branch ur) hours. Apply 21mg patch daily x 6 weeks; then apply 14mf patch daily x 2 weeks; then apply 7mg patch daily x 2 weeks. Stop smoking on initiation of therapy nicotine Yes [id number] 1{patch Apply 1 Univers mg/24 hr 3-19 } Patch to ity of patch 00:00: area(s) [place] 00 every 24 Medical (twenty-fo Branch ur) hours. Apply 21mg patch daily x 6 weeks; then apply 14mf patch daily x 2 weeks; then apply 7mg patch daily x 2 weeks. Stop smoking on initiation of therapy nicotine Yes [id number] 1{patch Apply 1 Univers mg/24 hr 3-19 } Patch to ity of patch 00:00: area(s) [place] 00 daily. Medical Apply 21mg Branch patch daily x 6 weeks; then apply 14mf patch daily x 2 weeks; then apply 7mg patch daily x 2 weeks. Stop smoking on initiation of therapy nicotine Yes [id number] 1{patch Apply 1 Univers mg/24 hr 3-19 } Patch to ity of patch 00:00: area(s) [place] 00 every 24 Medical (twenty-fo Branch ur) hours. Apply 21mg patch daily x 6 weeks; then apply 14mf patch daily x 2 weeks; then apply 7mg patch daily x 2 weeks. Stop smoking on initiation of therapy nicotine Yes [id number] 1{patch Apply 1 Univers mg/24 hr 3-19 } Patch to ity of patch 00:00: area(s) [place] 00 every 24 Medical (twenty-fo Branch ur) hours. Apply 21mg patch daily x 6 weeks; then apply 14mf patch daily x 2 weeks; then apply 7mg patch daily x 2 weeks. Stop smoking on initiation of therapy nicotine Yes [id number] 1{patch Apply 1 [facility] mg/24 hr 3-19 } Patch to ity of patch 00:00: area(s) [place] 00 daily. Medical Apply 21mg Branch patch daily x 6 weeks; then apply 14mf patch daily x 2 weeks; then apply 7mg patch daily x 2 weeks. Stop smoking on initiation of therapy nicotine Yes [id number] 1{patch Apply 1 [facility] mg/24 hr 3-19 } Patch to ity of patch 00:00: area(s) [place] 00 every 24 Medical (twenty-fo Branch ur) hours. Apply 21mg patch daily x 6 weeks; then apply 14mf patch daily x 2 weeks; then apply 7mg patch daily x 2 weeks. Stop smoking on initiation of therapy nicotine Yes [id number] 1{patch Apply 1 [facility] mg/24 hr 3-19 } Patch to ity of patch 00:00: area(s) [place] 00 every 24 Medical (twenty-fo Branch ur) hours. Apply 21mg patch daily x 6 weeks; then apply 14mf patch daily x 2 weeks; then apply 7mg patch daily x 2 weeks. Stop smoking on initiation of therapy nicotine Yes [id number] 1{patch Apply 1 [facility] mg/24 hr 3-19 } Patch to ity of patch 00:00: area(s) [place] 00 daily. Medical Apply 21mg Branch patch daily x 6 weeks; then apply 14mf patch daily x 2 weeks; then apply 7mg patch daily x 2 weeks. Stop smoking on initiation of therapy nicotine Yes [id number] 1{patch Apply 1 [facility] mg/24 hr 3-19 } Patch to ity of patch 00:00: area(s) [place] 00 every 24 Medical (twenty-fo Branch ur) hours. Apply 21mg patch daily x 6 weeks; then apply 14mf patch daily x 2 weeks; then apply 7mg patch daily x 2 weeks. Stop smoking on initiation of therapy nicotine Yes [id number] 1{patch Apply 1 [facility] mg/24 hr 3-19 } Patch to ity of patch 00:00: area(s) [place] 00 every 24 Medical (twenty-fo Branch ur) hours. Apply 21mg patch daily x 6 weeks; then apply 14mf patch daily x 2 weeks; then apply 7mg patch daily x 2 weeks. Stop smoking on initiation of therapy nicotine 2020- Yes [id number] 1{patch Apply 1 [facility] mg/24 hr 3-19 } Patch to ity of patch 00:00: area(s) [place] 00 daily. Medical Apply 21mg Branch patch daily x 6 weeks; then apply 14mf patch daily x 2 weeks; then apply 7mg patch daily x 2 weeks. Stop smoking on initiation of therapy nicotine 2020- Yes [id number] 1{patch Apply 1 [facility] mg/24 hr 3-19 } Patch to ity of patch 00:00: area(s) [place] 00 every 24 Medical (twenty-fo Branch ur) hours. Apply 21mg patch daily x 6 weeks; then apply 14mf patch daily x 2 weeks; then apply 7mg patch daily x 2 weeks. Stop smoking on initiation of therapy nicotine 2020- Yes [id number] 1{patch Apply 1 [facility] mg/24 hr 3-19 } Patch to ity of patch 00:00: area(s) [place] 00 every 24 Medical (twenty-fo Branch ur) hours. Apply 21mg patch daily x 6 weeks; then apply 14mf patch daily x 2 weeks; then apply 7mg patch daily x 2 weeks. Stop smoking on initiation of therapy nicotine Yes [id number] 1{patch Apply 1 [facility] mg/24 hr 3-19 } Patch to ity of patch 00:00: area(s) [place] 00 daily. Medical Apply 21mg Branch patch daily x 6 weeks; then apply 14mf patch daily x 2 weeks; then apply 7mg patch daily x 2 weeks. Stop smoking on initiation of therapy nicotine Yes [id number] 1{patch Apply 1 [facility] mg/24 hr 3-19 } Patch to ity of patch 00:00: area(s) [place] 00 every 24 Medical (twenty-fo Branch ur) hours. Apply 21mg patch daily x 6 weeks; then apply 14mf patch daily x 2 weeks; then apply 7mg patch daily x 2 weeks. Stop smoking on initiation of therapy nicotine Yes [id number] 1{patch Apply 1 [facility] mg/24 hr 3-19 } Patch to ity of patch 00:00: area(s) [place] 00 every 24 Medical (twenty-fo Branch ur) hours. Apply 21mg patch daily x 6 weeks; then apply 14mf patch daily x 2 weeks; then apply 7mg patch daily x 2 weeks. Stop smoking on initiation of therapy nicotine 2020- Yes [id number] 1{patch Apply 1 [facility] mg/24 hr 3-19 } Patch to ity of patch 00:00: area(s) [place] 00 daily. Medical Apply 21mg Branch patch daily x 6 weeks; then apply 14mf patch daily x 2 weeks; then apply 7mg patch daily x 2 weeks. Stop smoking on initiation of therapy nicotine 7 2021-0 Yes [id number] 1{patch Apply 1 [facility] mg/24 hr 3-19 } Patch to ity of patch 00:00: area(s) [place] 00 every 24 Medical (twenty-[facility] Branch ur) hours. Apply 21mg patch daily x 6 weeks; then apply 14mf patch daily x 2 weeks; then apply 7mg patch daily x 2 weeks. Stop smoking on initiation of therapy nicotine Yes [id number] 1{patch Apply 1 [facility] mg/24 hr 3-19 } Patch to ity of patch 00:00: area(s) [place] 00 every 24 Medical (twenty-fo Branch ur) hours. Apply 21mg patch daily x 6 weeks; then apply 14mf patch daily x 2 weeks; then apply 7mg patch daily x 2 weeks. Stop smoking on initiation of therapy nicotine Yes [id number] 1{patch Apply 1 [facility] mg/24 hr 3-19 } Patch to ity of patch 00:00: area(s) [place] 00 every 24 Medical (twenty-fo Branch ur) hours. Apply 21mg patch daily x 6 weeks; then apply 14mf patch daily x 2 weeks; then apply 7mg patch daily x 2 weeks. Stop smoking on initiation of therapy nicotine Yes [id number] 1{patch Apply 1 [facility] mg/24 hr 3-19 } Patch to ity of patch 00:00: area(s) [place] 00 daily. Medical Apply 21mg Branch patch daily x 6 weeks; then apply 14mf patch daily x 2 weeks; then apply 7mg patch daily x 2 weeks. Stop smoking on initiation of therapy nicotine Yes [id number] 1{patch Apply 1 [facility] mg/24 hr 3-19 } Patch to ity of patch 00:00: area(s) [place] 00 every 24 Medical (twenty-fo Branch ur) hours. Apply 21mg patch daily x 6 weeks; then apply 14mf patch daily x 2 weeks; then apply 7mg patch daily x 2 weeks. Stop smoking on initiation of therapy nicotine Yes [id number] 1{patch Apply 1 [facility] mg/24 hr 3-19 } Patch to ity of patch 00:00: area(s) [place] 00 daily. Medical Apply 21mg Branch patch daily x 6 weeks; then apply 14mf patch daily x 2 weeks; then apply 7mg patch daily x 2 weeks. Stop smoking on initiation of therapy nicotine Yes [id number] 1{patch Apply 1 [facility] mg/24 hr 3-19 } Patch to ity of patch 00:00: area(s) [place] 00 every 24 Medical (twenty-[facility] Branch ur) hours. Apply 21mg patch daily x 6 weeks; then apply 14mf patch daily x 2 weeks; then apply 7mg patch daily x 2 weeks. Stop smoking on initiation of therapy nicotine Yes [id number] 1{patch Apply 1 [facility] mg/24 hr 3-19 } Patch to ity of patch 00:00: area(s) [place] 00 every 24 Medical (twenty-fo Branch ur) hours. Apply 21mg patch daily x 6 weeks; then apply 14mf patch daily x 2 weeks; then apply 7mg patch daily x 2 weeks. Stop smoking on initiation of therapy nicotine Yes [id number] 1{patch Apply 1 [facility] mg/24 hr 3-19 } Patch to ity of patch 00:00: area(s) [place] 00 daily. Medical Apply 21mg Branch patch daily x 6 weeks; then apply 14mf patch daily x 2 weeks; then apply 7mg patch daily x 2 weeks. Stop smoking on initiation of therapy nicotine Yes [id number] 1{patch Apply 1 [facility] mg/24 hr 3-19 } Patch to ity of patch 00:00: area(s) [place] 00 every 24 Medical ([facility] Branch ur) hours. Apply 21mg patch daily x 6 weeks; then apply 14mf patch daily x 2 weeks; then apply 7mg patch daily x 2 weeks. Stop smoking on initiation of therapy nicotine Yes [id number] 1{patch Apply 1 [facility] mg/24 hr 3-19 } Patch to ity of patch 00:00: area(s) [place] 00 every 24 Medical (twenty-fo Branch ur) hours. Apply 21mg patch daily x 6 weeks; then apply 14mf patch daily x 2 weeks; then apply 7mg patch daily x 2 weeks. Stop smoking on initiation of therapy nicotine Yes [id number] 1{patch Apply 1 [facility] mg/24 hr 3-19 } Patch to ity of patch 00:00: area(s) [place] 00 daily. Medical Apply 21mg Branch patch daily x 6 weeks; then apply 14mf patch daily x 2 weeks; then apply 7mg patch daily x 2 weeks. Stop smoking on initiation of therapy nicotine Yes [id number] 1{patch Apply 1 [facility] mg/24 hr 3-19 } Patch to ity of patch 00:00: area(s) [place] 00 every 24 Medical (twenty-fo Branch ur) hours. Apply 21mg patch daily x 6 weeks; then apply 14mf patch daily x 2 weeks; then apply 7mg patch daily x 2 weeks. Stop smoking on initiation of therapy nicotine Yes [id number] 1{patch Apply 1 [facility] mg/24 hr 3-19 } Patch to ity of patch 00:00: area(s) [place] 00 every 24 Medical (twenty-fo Branch ur) hours. Apply 21mg patch daily x 6 weeks; then apply 14mf patch daily x 2 weeks; then apply 7mg patch daily x 2 weeks. Stop smoking on initiation of therapy nicotine Yes [id number] 1{patch Apply 1 [facility] mg/24 hr 3-19 } Patch to ity of patch 00:00: area(s) [place] 00 daily. Medical Apply 21mg Branch patch daily x 6 weeks; then apply 14mf patch daily x 2 weeks; then apply 7mg patch daily x 2 weeks. Stop smoking on initiation of therapy nicotine Yes [id number] 1{patch Apply 1 [facility] mg/24 hr 3-19 } Patch to ity of patch 00:00: area(s) [place] 00 every 24 Medical (twenty-fo Branch ur) hours. Apply 21mg patch daily x 6 weeks; then apply 14mf patch daily x 2 weeks; then apply 7mg patch daily x 2 weeks. Stop smoking on initiation of therapy nicotine Yes [id number] 1{patch Apply 1 [facility] mg/24 hr 3-19 } Patch to ity of patch 00:00: area(s) [place] 00 every 24 Medical (twenty-fo Branch ur) hours. Apply 21mg patch daily x 6 weeks; then apply 14mf patch daily x 2 weeks; then apply 7mg patch daily x 2 weeks. Stop smoking on initiation of therapy nicotine Yes [id number] 1{patch Apply 1 [facility] mg/24 hr 3-19 } Patch to ity of patch 00:00: area(s) [place] 00 daily. Medical Apply 21mg Branch patch daily x 6 weeks; then apply 14mf patch daily x 2 weeks; then apply 7mg patch daily x 2 weeks. Stop smoking on initiation of therapy nicotine 7 2020- Yes [id number] 1{patch Apply 1 [facility] mg/24 hr 3-19 } Patch to ity of patch 00:00: area(s) [place] 00 every 24 Medical ([facility] ur) hours. Apply 21mg patch daily x 6 weeks; then apply 14mf patch daily x 2 weeks; then apply 7mg patch daily x 2 weeks. Stop smoking on initiation of therapy nicotine 14 Yes [id number] 1{patch Apply 1 [facility] mg/24 hr 3-19 } Patch to ity of patch 00:00: area(s) [place] 00 every 24 Medical ([facility] ur) hours. Apply 21mg patch daily x 6 weeks; then apply 14mf patch daily x 2 weeks; then apply 7mg patch daily x 2 weeks. Stop smoking on initiation of therapy nicotine 21 Yes [id number] 1{patch Apply 1 [facility] mg/24 hr 3-19 } Patch to ity of patch 00:00: area(s) [place] 00 daily. Medical Apply 21mg Branch patch daily x 6 weeks; then apply 14mf patch daily x 2 weeks; then apply 7mg patch daily x 2 weeks. Stop smoking on initiation of therapy midodrine 2020- No [id number] 2.5mg Take 1 [facility] 2.5 mg 3-19 03-25 tablet by ity of tablet 00:00: 00:00 mouth [place] 00 :00 daily. [facility] midodrine 2020- No [id number] 2.5mg Take 1 [facility] 2.5 mg 3-19 03-25 tablet by ity of tablet 00:00: 00:00 mouth [place] 00 :00 daily. [facility] Branch atorvastati Yes 40mg 40 mg, Univ ers n (LIPITOR) 3-17 Oral, QHS, it y of tablet 40 02:00: First dose [place] mg 00 on [facility] 11/22/20 at Branch 2100, Until Discontinu ed, Routine prazosin Yes 2mg Take 2 mg Univ ers HCl 3-16 by mouth 2 ity of (PRAZOSIN 22:44: (two) [place] ORAL) 58 times Medical daily as Branch needed for Insomnia. prazosin Yes 2mg Take 2 mg Univ ers HCl 3-16 by mouth 2 ity of (PRAZOSIN 22:44: (two) [place] ORAL) 58 times Medical daily as Branch needed for Insomnia. enoxaparin Yes 40mg 40 mg, Unive rs (LOVENOX) 3-16 Subcutaneo ity of injection 14:00: [place], DAILY, [place] 40 mg 00 First dose Medical on [facility] 11/22/20 at 0900, Until Discontinu ed, Routine ziprasidone Yes 60mg 60 mg, Univ ers (GEODON) 3-16 Oral, BID ity of capsule 60 13:00: MEALS, [place] mg 00 First dose Medical on [place] 11/22/20 at 0800, Until Discontinu ed, Routine Sliding Yes Subcutaneo Univ ers Scale 3-16 us, AC, ity of Insulin-Reg 12:30: First dose [place] ular + Fsbg 00 on [facility] l Testing 11/22/20 at Branch 0730, Until Discontinu ed, Routine levothyroxi Yes 25ug 25 mcg, Uni vers ne -16 Oral, ity of (SYNTHROID) 11:00: QAM-0600, [place] tablet 25 00 First dose Medi arnel mcg on [facility] 11/22/20 at 0600, Until Discontinu ed, Routine FLUoxetine 2020- No 60mg Take 60 mg Univers (PROZAC) 40 11-22-16 by mouth ity of mg capsule 09:55: 00:00 [place]. [place] 26 :00 Medical Branch Iloperidone 2020- No 1{tbl} Take 1 Tab Univers (FANAPT) 6 11-22-16 by mouth 2 it y of mg Tab 09:55: 00:00 (two) [place] 26 :00 times Medical daily. Branch ondansetron Yes 4mg 4 mg, Slow Univers (ZOFRAN 3-16 IV Push, ity of (PF)) 04:43: Q6HPRN, [place] injection 4 39 Starting Medi arnel mg Mon [place] 11/21/20 at 2343, Until Discontinu ed, Routine, Nausea and Vomiting (N/V) traMADoL 2020- No 50mg 50 mg, Univer s (ULTRAM) 11-22-18 Oral, ity of tablet 50 04:43: 04:42 Q8HPRN, [place] mg 31 :31 Starting Medical Mon Branch 11/21/20 at 2343, Until 11/23/20 at 2342, Routine, Pain (scale 4-6) acetaminoph Yes 650mg 650 mg, Un dorothea en 16 Oral, ity of (TYLENOL) 04:43: Q6HPRN, [place] tablet 650 30 Starting Medic al mg [facility] Branch 11/21/20 at 2343, Until Discontinu ed, Routine, Pain (scale 1-3) NaCl 0.9% Yes 1000mL at 999 Univ ers (NS) IV 3-16 mL/hr, ity of infusion 02:00: Intravenou [place] as 1,000 mL 00 s, Medical CONTINUOUS Branch , Starting 11/21/20 at 2100, Until Discontinu ed, Routine NaCl 0.9% 2020- No 1000mL at 999 Uni vers (NS) bolus 11-22-16 mL/hr, ity of infusion 00:15: 01:05 1,000 mL, [place] as 1,000 mL 00 :00 IV Medical Infusion, Branch ONCE, 1 dose, 11/21/20 at 1915, STAT meclizine 2020- No 25mg 25 mg, Unive rs (TRAVEL-EAS 3-03 Oral, ity of E 19:30: 18:26 ONCE, 1 [place] (MECLIZINE) 00 :00 dose, Wed Med ical ) tablet 25 11/09/20 at [facility] mg 1330, SARIAH NaCl 0.9% 2020- No 1000mL at 999 Uni vers (NS) bolus 11-09 03-03 mL/hr, ity of infusion 19:30: 19:18 1,000 mL, [place] 1,000 mL 00 :00 IV Medical Piggyback, Branch ONCE, 1 dose, 11/09/20 at 1330, STAT Miscellaneo 2020-0 Yes [id number] I10 - U [employer] [facility] 3 Dispense ity o f Supply Kit 00:00: blood [place] 00 pressure Medical cuff (any Branch brand), take BP at home BID Miscellaneo 2020-0 Yes [id number] [facility] Kit 00:00: blood [place] 00 pressure Medical cuff (any Branch brand), take BP at home BID Miscellaneo 2020-0 Yes [id number] I10 - [facility] Dispense ity o f Supply Kit 00:00: blood [place] 00 pressure Medical cuff (any Branch brand), take BP at home BID Miscellaneo 2020-0 Yes [id number] I10 - [facility] 11-09 Dispense ity o f Supply Kit 00:00: blood [place] 00 pressure Medical cuff (any Branch brand), take BP at home BID Miscellaneo 2020-0 Yes [id number] I10 - [facility] 11-09 Dispense ity o f Supply Kit 00:00: blood [place] 00 pressure Medical cuff (any Branch brand), take BP at home BID Miscellaneo 2020-0 Yes [id number] I10 - [facility] 11-09 Dispense ity o f Supply Kit 00:00: blood [place] 00 pressure Medical cuff (any Branch brand), take BP at home BID Miscellaneo 2020-0 Yes [id number] I10 - [facility] 11-09 Dispense ity o f Supply Kit 00:00: blood [place] 00 pressure Medical cuff (any Branch brand), take BP at home BID Miscellaneo 2020-0 Yes [id number] I10 - [facility] Dispense ity o f Supply Kit 00:00: blood [place] 00 pressure Medical cuff (any Branch brand), take BP at home BID Miscellaneo 2020-0 Yes [id number] I10 - [facility] Dispense ity o f Supply Kit 00:00: blood [place] 00 pressure Medical cuff (any Branch brand), take BP at home BID Miscellaneo 2020-0 Yes [id number] I10 - U [employer] [facility] 3 Dispense ity o f Supply Kit 00:00: blood [place] 00 pressure Medical cuff (any Branch brand), take BP at home BID Miscellaneo 2020-0 Yes [id number] I10 - U [employer] [facility] 3 Dispense ity o f Supply Kit 00:00: blood [place] 00 pressure Medical cuff (any Branch brand), take BP at home BID Miscellaneo 2020-0 Yes [id number] I10 - [facility] Dispense ity o f Supply Kit 00:00: blood [place] 00 pressure Medical cuff (any Branch brand), take BP at home BID Miscellaneo 2020-0 Yes [id number] I10 - [facility] Dispense ity o f Supply Kit 00:00: blood [place] 00 pressure Medical cuff (any Branch brand), take BP at home BID Miscellaneo 2020-0 Yes [id number] I10 - [facility] 11-09 Dispense ity o f Supply Kit 00:00: blood [place] 00 pressure Medical cuff (any Branch brand), take BP at home BID Miscellaneo 2020-0 Yes [id number] I10 - [facility] 11-09 Dispense ity o f Supply Kit 00:00: blood [place] 00 pressure Medical cuff (any Branch brand), take BP at home BID Miscellaneo 2020-0 Yes [id number] I10 - [facility] 11-09 Dispense ity o f Supply Kit 00:00: blood [place] 00 pressure Medical cuff (any Branch brand), take BP at home BID Miscellaneo 2020-0 Yes [id number] I10 - U [employer] [facility] 3 Dispense ity o f Supply Kit 00:00: blood [place] 00 pressure Medical cuff (any Branch brand), take BP at home BID Miscellaneo 2020-0 Yes [id number] I10 - [facility] 3 Dispense ity o f Supply Kit 00:00: blood [place] 00 pressure Medical cuff (any Branch brand), take BP at home BID Miscellaneo 202-0 Yes [id number] I10 - [facility] Dispense ity o f Supply Kit 00:00: blood [place] 00 pressure Medical cuff (any Branch brand), take BP at home BID Miscellaneo 2020-0 Yes [id number] I10 - U [employer]rik [facility] 3 Dispense ity o f Supply Kit 00:00: blood [place] 00 pressure Medical cuff (any Branch brand), take BP at home BID Miscellaneo 2020-0 Yes [id number] I10 - U nivers [facility] 3 Dispense ity o f Supply Kit 00:00: blood [place] 00 pressure Medical cuff (any Branch brand), take BP at home BID Miscellaneo 0 Yes [id number] I10 - U nivers [facility] 11-09 Dispense ity o f Supply Kit 00:00: blood [place] 00 pressure Medical cuff (any Branch brand), take BP at home BID Miscellaneo 0 Yes [id number] I10 - U nivers [facility] 11-09 Dispense ity o f Supply Kit 00:00: blood [place] 00 pressure Medical cuff (any Branch brand), take BP at home BID Miscellaneo 2020-0 Yes [id number] I10 - U nivers [facility] 11-09 Dispense ity o f Supply Kit 00:00: blood [place] 00 pressure Medical cuff (any Branch brand), take BP at home BID Miscellaneo 2020-0 Yes [id number] I10 - U [employer] [facility] 11-09 Dispense ity o f Supply Kit 00:00: blood [place] 00 pressure Medical cuff (any Branch brand), take BP at home BID Miscellaneo 2020-0 Yes [id number] I10 - U [employer] [facility] 11-09 Dispense ity o f Supply Kit 00:00: blood [place] 00 pressure Medical cuff (any Branch brand), take BP at home BID FLUoxetine Yes 60mg Take 60 mg U nivers (PROZAC) 40 2-24 by mouth ity of mg capsule 21:55: daily. [address] Branch prazosin 0 Yes 2mg Take 2 mg Univ ers HCl 2-24 by mouth 2 ity of (PRAZOSIN 21:55: (two) [place] ORAL) 51 times Medical daily as Branch needed for Insomnia. FLUoxetine 0 Yes 60mg Take 60 mg U nivers (PROZAC) 40 2-24 by mouth ity of mg capsule 21:55: daily. [address] prazosin 0 Yes 2mg Take 2 mg Univ ers HCl 2-24 by mouth 2 ity of (PRAZOSIN 21:55: (two) [place] ORAL) 51 times Medical daily as Branch needed for Insomnia. FLUoxetine 0 Yes 60mg Take 60 mg U nivers (PROZAC) 40 2-24 by mouth ity of mg capsule 21:55: daily. [address] Branch prazosin 0 Yes 2mg Take 2 mg Univ ers HCl 2-24 by mouth 2 ity of (PRAZOSIN 21:55: (two) [place] ORAL) 51 times Medical daily as Branch needed for Insomnia. FLUoxetine 0 Yes 60mg Take 60 mg U nivers (PROZAC) 40 2-24 by mouth ity of mg capsule 21:55: daily. [address] Branch prazosin 0 Yes 2mg Take 2 mg Univ ers HCl 2-24 by mouth 2 ity of (PRAZOSIN 21:55: (two) [place] ORAL) 51 times Medical daily as Branch needed for Insomnia. FLUoxetine 0 Yes 60mg Take 60 mg U nivers (PROZAC) 40 2-24 by mouth ity of mg capsule 21:55: daily. [address] prazosin 0 Yes 2mg Take 2 mg Univ ers HCl 2-24 by mouth 2 ity of (PRAZOSIN 21:55: (two) [place] ORAL) 51 times Medical daily as Branch needed for Insomnia. FLUoxetine 0 Yes 60mg Take 60 mg U nivers (PROZAC) 40 2-24 by mouth ity of mg capsule 21:55: daily. [address] prazosin 0 Yes 2mg Take 2 mg Univ ers HCl 2-24 by mouth 2 ity of (PRAZOSIN 21:55: (two) [place] ORAL) 51 times Medical daily as Branch needed for Insomnia. LEVOTHYROXI 0 Yes [id number] TAKE ONE Univers NE 25 mcg 2-23 TABLET BY ity o f tablet 00:00: MOUTH [place] 00 EVERY Medical MORNING Branch LEVOTHYROXI 2020-0 Yes [id number] TAKE ONE Univers NE 25 mcg 2-23 TABLET BY ity o f tablet 00:00: MOUTH [place] 00 EVERY Medical MORNING Branch LEVOTHYROXI 2020-0 Yes [id number] TAKE ONE Univers NE 25 mcg 2-23 TABLET BY ity o f tablet 00:00: MOUTH [place] 00 EVERY Medical MORNING Branch LEVOTHYROXI 2020-0 Yes [id number] TAKE ONE Univers NE 25 mcg 2-23 TABLET BY ity o f tablet 00:00: MOUTH [place] 00 EVERY Medical MORNING Branch LEVOTHYROXI 1-0 Yes [id number] TAKE ONE Univers NE 25 mcg 2-23 TABLET BY ity o f tablet 00:00: MOUTH [place] 00 EVERY Medical MORNING Branch LEVOTHYROXI 1-0 Yes [id number] TAKE ONE Univers NE 25 mcg 2-23 TABLET BY ity o f tablet 00:00: MOUTH [place] 00 EVERY Medical MORNING Branch LEVOTHYROXI 1-0 Yes [id number] TAKE ONE Univers NE 25 mcg 2-23 TABLET BY ity o f tablet 00:00: MOUTH [place] 00 EVERY Medical MORNING Branch LEVOTHYROXI 1-0 Yes [id number] TAKE ONE Univers NE 25 mcg 2-23 TABLET BY ity o f tablet 00:00: MOUTH [place] 00 EVERY Medical MORNING Branch LEVOTHYROXI 2020-0 Yes [id number] TAKE ONE Univers NE 25 mcg 2-23 TABLET BY ity o f tablet 00:00: MOUTH [place] 00 EVERY Medical MORNING Branch LEVOTHYROXI 2020-0 Yes [id number] TAKE ONE Univers NE 25 mcg 2-23 TABLET BY ity o f tablet 00:00: MOUTH [place] 00 EVERY Medical MORNING Branch LEVOTHYROXI 1-0 Yes [id number] TAKE ONE Univers NE 25 mcg 2-23 TABLET BY ity o f tablet 00:00: MOUTH [place] 00 EVERY Medical MORNING Branch LEVOTHYROXI 2020-0 Yes [id number] TAKE ONE Univers NE 25 mcg 2-23 TABLET BY ity o f tablet 00:00: MOUTH [place] 00 EVERY Medical MORNING Branch LEVOTHYROXI 1-0 Yes [id number] TAKE ONE Univers NE 25 mcg 2-23 TABLET BY ity o f tablet 00:00: MOUTH [place] 00 EVERY Medical MORNING Branch LEVOTHYROXI 1-0 Yes [id number] TAKE ONE Univers NE 25 mcg 2-23 TABLET BY ity o f tablet 00:00: MOUTH [place] 00 EVERY Medical MORNING Branch LEVOTHYROXI 1-0 Yes [id number] TAKE ONE Univers NE 25 mcg 2-23 TABLET BY ity o f tablet 00:00: MOUTH [place] 00 EVERY Medical MORNING Branch LEVOTHYROXI 2020-0 Yes [id number] TAKE ONE Univers NE 25 mcg 2-23 TABLET BY ity o f tablet 00:00: MOUTH [place] 00 EVERY Medical MORNING Branch LEVOTHYROXI 2021-0 Yes [id number] TAKE ONE Univers NE 25 mcg 2-23 TABLET BY ity o f tablet 00:00: MOUTH [place] 00 EVERY Medical MORNING Branch LEVOTHYROXI 0 Yes [id number] TAKE ONE Univers NE 25 mcg 2-23 TABLET BY ity o f tablet 00:00: MOUTH [place] 00 EVERY Medical MORNING Branch LEVOTHYROXI 0 Yes [id number] TAKE ONE Univers NE 25 mcg 2-23 TABLET BY ity o f tablet 00:00: MOUTH [place] 00 EVERY Medical MORNING Branch LEVOTHYROXI 0 Yes [id number] TAKE ONE Univers NE 25 mcg 2-23 TABLET BY ity o f tablet 00:00: MOUTH [place] 00 EVERY Medical MORNING Branch LEVOTHYROXI 2020-0 2020- No [id number] TAKE ONE Univers NE 25 mcg 2-23 07-02 TABLET BY ity of tablet 00:00: 00:00 MOUTH [place] 00 :00 EVERY Medical MORNING Branch LEVOTHYROXI 2020-0 2020- No [id number] TAKE ONE Univers NE 25 mcg 2-23 07- TABLET BY ity of tablet 00:00: 00:00 MOUTH [place] 00 :00 EVERY Medical MORNING Branch FLUoxetine Yes 60mg Take 60 mg U nivers (PROZAC) 40 1-27 by mouth ity of mg capsule 21:52: daily. [place] [address] Medical Branch Iloperidone Yes 1{tbl} Take 1 Tab Univers (FANAPT) 6 1-27 by mouth 2 ity of mg Tab 21:52: (two) [place] 36 times Medical daily. Branch prazosin Yes 2mg Take 2 mg Univ ers HCl 1-27 by mouth 2 ity of (PRAZOSIN 21:52: (two) [place] ORAL) 36 times Medical daily as Branch needed for Insomnia. FLUoxetine Yes 60mg Take 60 mg U nivers (PROZAC) 40 1-27 by mouth ity of mg capsule 21:52: daily. [place] [address] Medical Branch Iloperidone Yes 1{tbl} Take 1 Tab [facility] (FANAPT) 6 1-27 by mouth 2 ity of mg Tab 21:52: (two) [place] 36 times Medical daily. Branch prazosin Yes 2mg Take 2 mg Univ ers HCl 1-27 by mouth 2 ity of (PRAZOSIN 21:52: (two) [place] ORAL) 36 times Medical daily as Branch needed for Insomnia. FLUoxetine 2020-0 Yes 60mg Take 60 mg U nivers (PROZAC) 40 1-27 by mouth ity of mg capsule 21:52: daily. [place] [address] Medical Branch Iloperidone 0 Yes 1{tbl} Take 1 Tab Univers (FANAPT) 6 1-27 by mouth 2 ity of mg Tab 21:52: (two) [place] 36 times Medical daily. Branch prazosin 0 Yes 2mg Take 2 mg Univ ers HCl 1-27 by mouth 2 ity of (PRAZOSIN 21:52: (two) [place] ORAL) 36 times Medical daily as Branch needed for Insomnia. Iloperidone 2020-0 Yes 1{tbl} Take 1 Tab [facility] (FANAPT) 6 1-27 by mouth 2 ity of mg Tab 21:52: (two) [place] 36 times Medical daily. Branch Iloperidone Yes 1{tbl} Take 1 Tab [facility] (FANAPT) 6 1-27 by mouth 2 ity of mg Tab 21:52: (two) [place] 36 times Medical daily. Branch Iloperidone 0 Yes 1{tbl} Take 1 Tab Univers (FANAPT) 6 1-27 by mouth 2 ity of mg Tab 21:52: (two) [place] 36 times Medical daily. Branch Iloperidone 0 Yes 1{tbl} Take 1 Tab Univers (FANAPT) 6 1-27 by mouth 2 ity of mg Tab 21:52: (two) [place] 36 times Medical daily. Branch Iloperidone Yes 1{tbl} Take 1 Tab [facility] (FANAPT) 6 1-27 by mouth 2 ity of mg Tab 21:52: (two) [place] 36 times Medical daily. Branch Iloperidone 0 Yes 1{tbl} Take 1 Tab [facility] (FANAPT) 6 1-27 by mouth 2 ity of mg Tab 21:52: (two) [place] 36 times Medical daily. Branch prazosin 0 Yes 2mg 2 mg, Univers (MINIPRES) 1-27 Oral, ity of capsule 2 02:00: Q12H, [place] mg 00 First dose Medical on Sat Branch 10/04/20 at 2000, Until Discontinu ed, Routine ziprasidone 2020-0 Yes 60mg 60 mg, Univ ers (GEODON) 10-04 Oral, BID ity of capsule 60 23:00: MEALS, [place] mg 00 First dose Medical on [facility] 10/04/20 at 1700, Until Discontinu ed, Routine FLUoxetine Yes 60mg 60 mg, Unive rs (PROZAC) 10-04 Oral, ity of capsule 60 21:15: DAILY, [place] mg 00 First dose Medical on [facility] 10/04/20 at 1515, Until Discontinu ed, Routine busPIRone Yes 15mg 15 mg, Univer s (BUSPAR) 10-04 Oral, ity of tablet 15 21:00: TIDPRN, [place] mg 46 Starting Medical [facility] 10/04/20 at 1500, Until Discontinu ed, Routine, anxiety Sliding Yes Subcutaneo Univ ers Scale 10-04 us, AC, ity of Insulin-Reg 13:30: First dose [place] ular + Fsbg 00 on [facility] l Testing 10/04/20 at Branch 0730, Until Discontinu ed, Routine heparin Yes 5000U 5,000 Univers (porcine) 10-04 Units, ity of injection 12:00: Subcutaneo [place] 5,000 Units 00 us, Q8H, [facility] First dose Branch on 10/04/20 at 0600, Until Discontinu ed, Routine NaCl 0.9% 2020- No 2000mL at 100 Uni vers (NS) IV 10-04 01-26 mL/hr, IV ity of infusion 11:45: 11:34 Infusion, [place] as 2,000 mL 00 :00 ONCE, 1 Medical dose, [facility] 10/04/20 at 0545, Routine glucagon Yes 1mg 1 mg, Univers (GLUCAGEN 10-04 Intramuscu ity of DIAGNOSTIC 08:13: lar, PRN, [place] KIT) 15 Starting Medical injection 1 [facility] mg 10/04/20 at 0213, Until Discontinu ed, SARIAH, Blood Glucose < or = 70 mg/dL and patient is unable to swallow or has mental changes. dextrose 50 Yes 25mL 25 mL, Univ ers % in water 10-04 Slow IV ity of (D50W) 08:13: Push, PRN, [place] injection 15 Starting Medica l 25 mL e Branch 10/04/20 at 0213, Until Discontinu ed, SARIAH, Blood Glucose < or = 70 mg/dL and patient is unable to swallow or has mental status changes. ondansetron Yes 4mg 4 mg, Slow Univers (ZOFRAN 10-04 IV Push, ity of (PF)) 08:13: Q6HPRN, [place] injection 4 02 Starting Medi arnel mg [facility] Branch 10/04/20 at 0213, Until Discontinu ed, Routine, Nausea and Vomiting (N/V) traMADoL 2020- No 50mg 50 mg, Univer s (ULTRAM) 10-04 Oral, ity of tablet 50 08:12: 08:11 Q8HPRN, [place] mg 57 :57 Starting Medical e Branch 10/04/20 at 0212, Until [place] 10/06/20 at 0211, Routine, Pain (scale 4-6) acetaminoph Yes 650mg 650 mg, [facility] en 10-04 Oral, ity of (TYLENOL) 08:12: Q6HPRN, [place] tablet 650 55 Starting Medic al mg [facility] Branch 10/04/20 at 0212, Until Discontinu ed, Routine, Pain (scale 1-3) nicotine Yes 1{patch 1 Patch, [facility] (NICODERM) 10-04 } Topical, ity o f 21 mg/24 hr 05:26: Administer [place] patch 1 10 over 24 Medical Patch Hours, Branch Q24H, First dose on Sat10/03/20 at 2330, Until Discontinu ed, Routine NaCl 0.9% 2020- No 500mL at 999 Univ ers (NS) bolus 10-04 mL/hr, 500 it y of infusion 00:45: 00:43 mL, IV [place] 500 mL 00 :00 Infusion, Medical ONCE, 1 Branch dose, Sat10/03/20 at 1845, STAT FUROSEMIDE Yes [id number] TAKE ONE Univers 20 mg 1-22 TABLET BY ity of tablet 00:00: MOUTH [place] 00 DAILY Medical Branch FUROSEMIDE 0 Yes [id number] TAKE ONE Univers 20 mg 1-22 TABLET BY ity of tablet 00:00: MOUTH [place] 00 DAILY Medical Branch FUROSEMIDE 2021-0 Yes [id number] TAKE ONE Univers 20 mg 1-22 TABLET BY ity of tablet 00:00: MOUTH [place] 00 DAILY Medical Branch FUROSEMIDE 2021-0 Yes [id number] TAKE ONE Univers 20 mg 1-22 TABLET BY ity of tablet 00:00: MOUTH [place] 00 DAILY Medical Branch FUROSEMIDE 2021-0 Yes [id number] TAKE ONE Univers 20 mg 1-22 TABLET BY ity of tablet 00:00: MOUTH [place] 00 DAILY Medical Branch FUROSEMIDE 2021-0 2021- No [id number] TAKE ONE Univers 20 mg 1-22 03-03 TABLET BY ity of tablet 00:00: 00:00 MOUTH [place] 00 :00 DAILY Medical Branch FUROSEMIDE 2021-0 2021- No [id number] TAKE ONE Univers 20 mg 1-22 03-03 TABLET BY ity of tablet 00:00: 00:00 MOUTH [place] 00 :00 DAILY Medical Branch FUROSEMIDE 2021-0 2021- No [id number] TAKE ONE Univers 20 mg 1-22 03-03 TABLET BY ity of tablet 00:00: 00:00 MOUTH [place] 00 :00 DAILY Medical Branch FUROSEMIDE 2021-0 2021- No [id number] TAKE ONE Univers 20 mg 1-22 03-03 TABLET BY ity of tablet 00:00: 00:00 MOUTH [place] 00 :00 DAILY Medical Branch hydrOXYzine 2019-09 2020- No 25mg 25 mg, Uni vers (ATARAX) 2-12 12-12 Oral, ity of tablet 25 21:45: 20:45 ONCE, 1 [place] mg [place] :[place] dose, [facility] 08/20/20 Branch at 1545, SARIAH hydrOXYzine 2019-09 Yes [id number] 25mg Take 1 Univers 25 mg 2-12 tablet by ity of tablet 00:00: mouth [place] 00 every 8 Medical (eight) Branch hours as needed for Anxiety. hydrOXYzine 2019-09 Yes [id number] 25mg Take 1 Univers 25 mg 2-12 tablet by ity of tablet 00:00: mouth [place] 00 every 8 Medical (eight) Branch hours as needed for Anxiety. hydrOXYzine 2019-09 Yes [id number] 25mg Take 1 Univers 25 mg 2-12 tablet by ity of tablet 00:00: mouth [place] 00 every 8 Medical (eight) Branch hours as needed for Anxiety. hydrOXYzine 2019- Yes [id number] 25mg Take 1 Univers 25 mg 2-12 tablet by ity of tablet 00:00: mouth [place] 00 every 8 Medical (eight) Branch hours as needed for Anxiety. hydrOXYzine 2019- Yes [id number] 25mg Take 1 Univers 25 mg 2-12 tablet by ity of tablet 00:00: mouth [place] 00 every 8 Medical (eight) Branch hours as needed for Anxiety. hydrOXYzine 2019-09 Yes [id number] 25mg Take 1 [facility] 25 mg 2-12 tablet by ity of tablet 00:00: mouth [place] 00 every 8 Medical (eight) Branch hours as needed for Anxiety. hydrOXYzine 2019-09 Yes [id number] 25mg Take 1 [facility] 25 mg 2-12 tablet by ity of tablet 00:00: mouth [place] 00 every 8 Medical (eight) Branch hours as needed for Anxiety. hydrOXYzine 2019-09 Yes [id number] 25mg Take 1 [facility] 25 mg 2-12 tablet by ity of tablet 00:00: mouth [place] 00 every 8 Medical (eight) Branch hours as needed for Anxiety. hydrOXYzine 2019-09 Yes [id number] 25mg Take 1 [facility] 25 mg 2-12 tablet by ity of tablet 00:00: mouth [place] 00 every 8 Medical (eight) Branch hours as needed for Anxiety. hydrOXYzine 2019-09- No [id number] 25mg Take 1 Univers 25 mg 2-12 03-03 tablet by ity of tablet 00:00: 00:00 mouth [place] 00 :00 every 8 Medical (eight) Branch hours as needed for Anxiety. hydrOXYzine 2019-09- No [id number] 25mg Take 1 Univers 25 mg 2-12 03-03 tablet by ity of tablet 00:00: 00:00 mouth [place] 00 :00 every 8 Medical (eight) Branch hours as needed for Anxiety. hydrOXYzine 2019-09- No [id number] 25mg Take 1 Univers 25 mg 2-12 03-03 tablet by ity of tablet 00:00: 00:00 mouth [place] 00 :00 every 8 Medical (eight) Branch hours as needed for Anxiety. hydrOXYzine 2019-09- No [id number] 25mg Take 1 Univers 25 mg 2-12 03-03 tablet by ity of tablet 00:00: 00:00 mouth [place] 00 :00 every 8 Medical (eight) Branch hours as needed for Anxiety. lisinopriL 2019-09 Yes Univers 10 mg 2-02 ity of tablet 00:00: [place] 00 Medical Branch lisinopriL 2019-09 Yes Univers 10 mg 2-02 ity of tablet 00:00: Medical Branch lisinopriL 2019-09 Yes Univers 10 mg 2-02 ity of tablet 00:00: 00 Medical Branch lisinopriL 2019-09 Yes Univers 10 mg 2-02 ity of tablet 00:00: Medical Branch lisinopriL 2019-09 Yes Univers 10 mg 2-02 ity of tablet 00:00: Medical Branch lisinopriL 2019-09 Yes Univers 10 mg 2-02 ity of tablet 00:00: Medical Branch lisinopriL 2019-09- No Univer s 10 mg 2-02 03-16 ity of tablet 00:00: 00:00 [place] 00 :00 Medical Branch furosemide 2019-09- No Take by [facility] (LASIX 2- 12 mouth. ity of ORAL) 17:28: 00:00 [place] 14 :00 Medical Branch furosemide 2019-09- No Take by [facility] (LASIX 2- 12-01 mouth. ity of ORAL) 17:28: 00:00 [place] 14 :00 Medical Branch prazosin 2019-09 Yes Take by Unive rs HCl 2-01 mouth. ity of (PRAZOSIN 16:46: [place] ORAL) Medical Branch FLUoxetine 2019-09 Yes 40mg Take 40 mg U nivers (PROZAC) 40 2-01 by mouth ity of mg capsule 16:46: daily. Medical Branch Iloperidone 2019-09 Yes 1{tbl} Take 1 Tab Univers (FANAPT) 6 2-01 by mouth 2 ity of mg Tab 16:46: (two) [place] times Medical daily. Branch prazosin 2019-09 Yes Take by Unive rs HCl 2-01 mouth. ity of (PRAZOSIN 16:46: [place] ORAL) Medical Branch FLUoxetine 2019-09 Yes 40mg Take 40 mg U nivers (PROZAC) 40 2-01 by mouth ity of mg capsule 16:46: daily. Medical Branch Iloperidone 2019-09 Yes 1{tbl} Take 1 Tab [facility] (FANAPT) 6 2-01 by mouth 2 ity of mg Tab 16:46: (two) [place] times Medical daily. Branch prazosin 2019-09 Yes Take by Unive rs HCl 2-01 mouth. ity of (PRAZOSIN 16:46: [place] ORAL) Medical Branch FLUoxetine 2019-09 Yes 40mg Take 40 mg U nivers (PROZAC) 40 2-01 by mouth ity of mg capsule 16:46: daily. Medical Branch Iloperidone 2019-09 Yes 1{tbl} Take 1 Tab [facility] (FANAPT) 6 2-01 by mouth 2 ity of mg Tab 16:46: (two) [place] times Medical daily. Branch prazosin 2019-09 Yes Take by Unive rs HCl 2-01 mouth. ity of (PRAZOSIN 16:46: [place] ORAL) Medical Branch FLUoxetine 2019-09 Yes 40mg Take 40 mg U nivers (PROZAC) 40 2-01 by mouth ity of mg capsule 16:46: daily. Medical Branch Iloperidone 2019-09 Yes 1{tbl} Take 1 Tab Univers (FANAPT) 6 2-01 by mouth 2 ity of mg Tab 16:46: (two) times Medical daily. Branch prazosin 2019-09 Yes Take by Unive rs HCl 2-01 mouth. ity of (PRAZOSIN 16:46: [place] ORAL) Medical Branch FLUoxetine 2019-09 Yes 40mg Take 40 mg U nivers (PROZAC) 40 2-01 by mouth ity of mg capsule 16:46: daily. Medical Branch Iloperidone 2019-09 Yes 1{tbl} Take 1 Tab Univers (FANAPT) 6 2-01 by mouth 2 ity of mg Tab 16:46: (two) [place] times Medical daily. Branch prazosin 2019-09 Yes Take by Unive rs HCl 2-01 mouth. ity of (PRAZOSIN 16:46: [place] ORAL) Medical Branch FLUoxetine 2019-09 Yes 40mg Take 40 mg U nivers (PROZAC) 40 2-01 by mouth ity of mg capsule 16:46: daily. Medical Branch Iloperidone 2019-09 Yes 1{tbl} Take 1 Tab Univers (FANAPT) 6 2-01 by mouth 2 ity of mg Tab 16:46: (two) times Medical daily. Branch prazosin 2020-1 Yes Take by Unive rs HCl 2-01 mouth. ity of (PRAZOSIN 16:46: [place] ORAL) Medical Branch FLUoxetine 2019-09 Yes 40mg Take 40 mg U nivers (PROZAC) 40 2-01 by mouth ity of mg capsule 16:46: daily. Medical Branch Iloperidone 2019-09 Yes 1{tbl} Take 1 Tab Univers (FANAPT) 6 2-01 by mouth 2 ity of mg Tab 16:46: (two) [place] 01 times Medical daily. Branch prazosin 2019-09 Yes Take by Unive rs HCl 2-01 mouth. ity of (PRAZOSIN 16:46: [place] ORAL) Medical Branch FLUoxetine 2019-09 Yes 40mg Take 40 mg U nivers (PROZAC) 40 2-01 by mouth ity of mg capsule 16:46: daily. Medical Branch Iloperidone 2019-09 Yes 1{tbl} Take 1 Tab Univers (FANAPT) 6 2-01 by mouth 2 ity of mg Tab 16:46: (two) times Medical daily. Branch lisinopriL 2019-09 Yes [id number] 10mg Take 1 U nivers 10 mg 2-01 tablet by ity of tablet 00:00: mouth [place] 00 daily. Medical Branch metformin 2019-09 Yes [id number] 500mg Take 1 Univers ER 500 mg 2-01 tablet by ity o f 24 hr 00:00: mouth [place] tablet 00 daily with Medical breakfast. Branch nicotine 7 2019-09 Yes [id number] 1{patch Apply 1 [facility] mg/24 hr 2-01 } Patch to ity of patch 00:00: area(s) [place] 00 every 24 Medical ([facility]- Branch ur) hours. Apply 21mg patch daily x 6 weeks; then apply 14mg patch daily x 2 weeks; then apply 7mg patch daily x 2 weeks. Stop smoking on treatment onset nicotine 21 2019-09 Yes [id number] 1{patch Apply 1 Univers mg/24 hr 2-01 } Patch to ity of patch 00:00: area(s) [place] 00 every 24 Medical ([facility] Branch ur) hours. Apply 21mg patch daily x 6 weeks; then apply 14mg patch daily x 2 weeks; then apply 7mg patch daily x 2 weeks. Stop smoking on treatment onset nicotine 14 2019-09 Yes [id number] 1{patch Apply 1 Univers mg/24 hr 2-01 } Patch to ity of patch 00:00: area(s) [place] 00 every 24 Medical (twenty- Branch ur) hours. metformin 2020 Yes [id number] 500mg Take 1 Univers ER 500 mg 2-01 tablet by ity o f 24 hr 00:00: mouth [place] tablet 00 daily with Medical breakfast. Branch nicotine 7 2019-09 Yes [id number] 1{patch Apply 1 [facility] mg/24 hr 2-01 } Patch to ity of patch 00:00: area(s) [place] 00 every 24 Medical (twenty-fo Branch ur) hours. Apply 21mg patch daily x 6 weeks; then apply 14mg patch daily x 2 weeks; then apply 7mg patch daily x 2 weeks. Stop smoking on treatment onset nicotine 21 2019-09 Yes [id number] 1{patch Apply 1 Univers mg/24 hr 2-01 } Patch to ity of patch 00:00: area(s) [place] 00 every 24 Medical ([facility] Branch ur) hours. Apply 21mg patch daily x 6 weeks; then apply 14mg patch daily x 2 weeks; then apply 7mg patch daily x 2 weeks. Stop smoking on treatment onset nicotine 14 2019-09 Yes [id number] 1{patch Apply 1 Univers mg/24 hr 2-01 } Patch to ity of patch 00:00: area(s) [place] 00 every 24 Medical ([facility] Branch ur) hours. metformin 2019-09 Yes [id number] 500mg Take 1 Univers ER 500 mg 2-01 tablet by ity o f 24 hr 00:00: mouth [place] tablet 00 daily with Medical breakfast. Branch nicotine 7 2019-09 Yes [id number] 1{patch Apply 1 Univers mg/24 hr 2-01 } Patch to ity of patch 00:00: area(s) [place] 00 every 24 Medical (twenty- Branch ur) hours. Apply 21mg patch daily x 6 weeks; then apply 14mg patch daily x 2 weeks; then apply 7mg patch daily x 2 weeks. Stop smoking on treatment onset nicotine 21 2019-09 Yes [id number] 1{patch Apply 1 Univers mg/24 hr 2-01 } Patch to ity of patch 00:00: area(s) [place] 00 every 24 Medical (twenty- Branch ur) hours. Apply 21mg patch daily x 6 weeks; then apply 14mg patch daily x 2 weeks; then apply 7mg patch daily x 2 weeks. Stop smoking on treatment onset nicotine 14 2019-09 Yes [id number] 1{patch Apply 1 Univers mg/24 hr 2-01 } Patch to ity of patch 00:00: area(s) [place] 00 every 24 Medical ([facility] Branch ur) hours. metformin 2019-09 Yes [id number] 500mg Take 1 Univers ER 500 mg 2-01 tablet by ity o f 24 hr 00:00: mouth [place] tablet 00 daily with Medical breakfast. Branch nicotine 7 2019-09 Yes [id number] 1{patch Apply 1 Univers mg/24 hr 2-01 } Patch to ity of patch 00:00: area(s) [place] 00 every 24 Medical (twenty- Branch ur) hours. Apply 21mg patch daily x 6 weeks; then apply 14mg patch daily x 2 weeks; then apply 7mg patch daily x 2 weeks. Stop smoking on treatment onset nicotine 21 2019-09 Yes [id number] 1{patch Apply 1 Univers mg/24 hr 2-01 } Patch to ity of patch 00:00: area(s) [place] 00 every 24 Medical ([facility] Branch ur) hours. Apply 21mg patch daily x 6 weeks; then apply 14mg patch daily x 2 weeks; then apply 7mg patch daily x 2 weeks. Stop smoking on treatment onset nicotine 14 2019-09 Yes [id number] 1{patch Apply 1 Univers mg/24 hr 2-01 } Patch to ity of patch 00:00: area(s) [place] 00 every 24 Medical ([facility] ur) hours. metformin 2019-09 Yes [id number] 500mg Take 1 Univers ER 500 mg 2-01 tablet by ity o f 24 hr 00:00: mouth [place] tablet 00 daily with Medical breakfast. Branch nicotine 7 2019-09 Yes [id number] 1{patch Apply 1 Univers mg/24 hr 2-01 } Patch to ity of patch 00:00: area(s) [place] 00 every 24 Medical (twenty- Branch ur) hours. Apply 21mg patch daily x 6 weeks; then apply 14mg patch daily x 2 weeks; then apply 7mg patch daily x 2 weeks. Stop smoking on treatment onset nicotine 21 2019-09 Yes [id number] 1{patch Apply 1 Univers mg/24 hr 2-01 } Patch to ity of patch 00:00: area(s) [place] 00 every 24 Medical (twenty-fo Branch ur) hours. Apply 21mg patch daily x 6 weeks; then apply 14mg patch daily x 2 weeks; then apply 7mg patch daily x 2 weeks. Stop smoking on treatment onset nicotine 14 2019-09 Yes [id number] 1{patch Apply 1 Univers mg/24 hr 2-01 } Patch to ity of patch 00:00: area(s) [place] 00 every 24 Medical (twenty-fo Branch ur) hours. metformin 2019- Yes [id number] 500mg Take 1 Univers ER 500 mg 2-01 tablet by ity o f 24 hr 00:00: mouth [place] tablet 00 daily with Medical breakfast. Branch nicotine 7 2019-09 Yes [id number] 1{patch Apply 1 Univers mg/24 hr 2-01 } Patch to ity of patch 00:00: area(s) [place] 00 every 24 Medical (twenty-fo Branch ur) hours. Apply 21mg patch daily x 6 weeks; then apply 14mg patch daily x 2 weeks; then apply 7mg patch daily x 2 weeks. Stop smoking on treatment onset nicotine 21 2019-09 Yes [id number] 1{patch Apply 1 Univers mg/24 hr 2-01 } Patch to ity of patch 00:00: area(s) [place] 00 every 24 Medical (twenty-fo Branch ur) hours. Apply 21mg patch daily x 6 weeks; then apply 14mg patch daily x 2 weeks; then apply 7mg patch daily x 2 weeks. Stop smoking on treatment onset nicotine 14 2019-09 Yes [id number] 1{patch Apply 1 Univers mg/24 hr 2-01 } Patch to ity of patch 00:00: area(s) [place] 00 every 24 Medical (twenty-fo Branch ur) hours. metformin 2019- Yes [id number] 500mg Take 1 Univers ER 500 mg 2-01 tablet by ity o f 24 hr 00:00: mouth [place] tablet 00 daily with Medical breakfast. Branch nicotine 7 2019-09 Yes [id number] 1{patch Apply 1 Univers mg/24 hr 2-01 } Patch to ity of patch 00:00: area(s) [place] 00 every 24 Medical (twenty-fo Branch ur) hours. Apply 21mg patch daily x 6 weeks; then apply 14mg patch daily x 2 weeks; then apply 7mg patch daily x 2 weeks. Stop smoking on treatment onset nicotine 21 2019-09 Yes [id number] 1{patch Apply 1 Univers mg/24 hr 2-01 } Patch to ity of patch 00:00: area(s) [place] 00 every 24 Medical (twenty- Branch ur) hours. Apply 21mg patch daily x 6 weeks; then apply 14mg patch daily x 2 weeks; then apply 7mg patch daily x 2 weeks. Stop smoking on treatment onset nicotine 14 2019-09 Yes [id number] 1{patch Apply 1 Univers mg/24 hr 2-01 } Patch to ity of patch 00:00: area(s) [place] 00 every 24 Medical (twenty- Branch ur) hours. metformin 2019-09 Yes [id number] 500mg Take 1 Univers ER 500 mg 2-01 tablet by ity o f 24 hr 00:00: mouth [place] tablet 00 daily with Medical breakfast. Branch nicotine 7 2019-09 Yes [id number] 1{patch Apply 1 Univers mg/24 hr 2-01 } Patch to ity of patch 00:00: area(s) [place] 00 every 24 Medical ([facility] Branch ur) hours. Apply 21mg patch daily x 6 weeks; then apply 14mg patch daily x 2 weeks; then apply 7mg patch daily x 2 weeks. Stop smoking on treatment onset nicotine 21 2019-09 Yes [id number] 1{patch Apply 1 Univers mg/24 hr 2-01 } Patch to ity of patch 00:00: area(s) [place] 00 every 24 Medical ([facility] Branch ur) hours. Apply 21mg patch daily x 6 weeks; then apply 14mg patch daily x 2 weeks; then apply 7mg patch daily x 2 weeks. Stop smoking on treatment onset nicotine 14 2019-09 Yes [id number] 1{patch Apply 1 Univers mg/24 hr 2-01 } Patch to ity of patch 00:00: area(s) [place] 00 every 24 Medical ([facility] Branch ur) hours. metformin 2019-09 Yes [id number] 500mg Take 1 Univers ER 500 mg 2-01 tablet by ity o f 24 hr 00:00: mouth [place] tablet 00 daily with Medical breakfast. Branch nicotine 7 2019-09 Yes [id number] 1{patch Apply 1 Univers mg/24 hr 2-01 } Patch to ity of patch 00:00: area(s) [place] 00 every 24 Medical (twenty- Branch ur) hours. Apply 21mg patch daily x 6 weeks; then apply 14mg patch daily x 2 weeks; then apply 7mg patch daily x 2 weeks. Stop smoking on treatment onset nicotine 21 2019-09 Yes [id number] 1{patch Apply 1 Univers mg/24 hr 2-01 } Patch to ity of patch 00:00: area(s) [place] 00 every 24 Medical (twenty- Branch ur) hours. Apply 21mg patch daily x 6 weeks; then apply 14mg patch daily x 2 weeks; then apply 7mg patch daily x 2 weeks. Stop smoking on treatment onset nicotine 14 2019-09 Yes [id number] 1{patch Apply 1 Univers mg/24 hr 2-01 } Patch to ity of patch 00:00: area(s) [place] 00 every 24 Medical (twenty- Branch ur) hours. metformin 2019-09 Yes [id number] 500mg Take 1 Univers ER 500 mg 2-01 tablet by ity o f 24 hr 00:00: mouth [place] tablet 00 daily with Medical breakfast. Branch nicotine 7 2019-09 Yes [id number] 1{patch Apply 1 [facility] mg/24 hr 2-01 } Patch to ity of patch 00:00: area(s) [place] 00 every 24 Medical (twenty- Branch ur) hours. Apply 21mg patch daily x 6 weeks; then apply 14mg patch daily x 2 weeks; then apply 7mg patch daily x 2 weeks. Stop smoking on treatment onset nicotine 21 2019-09 Yes [id number] 1{patch Apply 1 Univers mg/24 hr 2-01 } Patch to ity of patch 00:00: area(s) [place] 00 every 24 Medical ([facility] Branch ur) hours. Apply 21mg patch daily x 6 weeks; then apply 14mg patch daily x 2 weeks; then apply 7mg patch daily x 2 weeks. Stop smoking on treatment onset nicotine 14 2019-09 Yes [id number] 1{patch Apply 1 Univers mg/24 hr 2-01 } Patch to ity of patch 00:00: area(s) [place] 00 every 24 Medical [facility] hours. lisinopriL 2019-09 Yes [id number] 10mg Take 1 U nivers 10 mg 2-01 tablet by ity of tablet 00:00: mouth [place] 00 daily. Medical Branch metformin 2019-09 Yes [id number] 500mg Take 1 Univers ER 500 mg 2-01 tablet by ity o f 24 hr 00:00: mouth [place] tablet 00 daily with Medical breakfast. Branch nicotine 7 2019-09 Yes [id number] 1{patch Apply 1 [facility] mg/24 hr 2-01 } Patch to ity of patch 00:00: area(s) [place] 00 every 24 Medical (twenty-fo Branch ur) hours. Apply 21mg patch daily x 6 weeks; then apply 14mg patch daily x 2 weeks; then apply 7mg patch daily x 2 weeks. Stop smoking on treatment onset nicotine 21 2019-09 Yes [id number] 1{patch Apply 1 [facility] mg/24 hr 2-01 } Patch to ity of patch 00:00: area(s) [place] 00 every 24 Medical (twenty-fo Branch ur) hours. Apply 21mg patch daily x 6 weeks; then apply 14mg patch daily x 2 weeks; then apply 7mg patch daily x 2 weeks. Stop smoking on treatment onset nicotine 14 2019-09 Yes [id number] 1{patch Apply 1 Univers mg/24 hr 2-01 } Patch to ity of patch 00:00: area(s) [place] 00 every 24 Medical ([facility]- Branch ur) hours. lisinopriL 2019-09 Yes [id number] 10mg Take 1 U nivers 10 mg 2-01 tablet by ity of tablet 00:00: mouth [place] 00 daily. Medical Branch metformin 2019-09 Yes [id number] 500mg Take 1 Univers ER 500 mg 2-01 tablet by ity o f 24 hr 00:00: mouth [place] tablet 00 daily with Medical breakfast. Branch nicotine 7 2019-09 Yes [id number] 1{patch Apply 1 [facility] mg/24 hr 2-01 } Patch to ity of patch 00:00: area(s) [place] 00 every 24 Medical (twenty- Branch ur) hours. Apply 21mg patch daily x 6 weeks; then apply 14mg patch daily x 2 weeks; then apply 7mg patch daily x 2 weeks. Stop smoking on treatment onset nicotine 21 2019-09 Yes [id number] 1{patch Apply 1 [facility] mg/24 hr 2-01 } Patch to ity of patch 00:00: area(s) [place] 00 every 24 Medical (twenty-fo Branch ur) hours. Apply 21mg patch daily x 6 weeks; then apply 14mg patch daily x 2 weeks; then apply 7mg patch daily x 2 weeks. Stop smoking on treatment onset nicotine 14 2019-09 Yes [id number] 1{patch Apply 1 [facility] mg/24 hr 2-01 } Patch to ity of patch 00:00: area(s) [place] 00 every 24 Medical (twenty-fo Branch ur) hours. lisinopriL 2019-09 Yes [id number] 10mg Take 1 U nivers 10 mg 2-01 tablet by ity of tablet 00:00: mouth [place] 00 daily. Medical Branch metformin 2019-09 Yes [id number] 500mg Take 1 [facility] ER 500 mg 2-01 tablet by ity o f 24 hr 00:00: mouth [place] tablet 00 daily with Medical breakfast. Branch nicotine 7 2019-09 Yes [id number] 1{patch Apply 1 [facility] mg/24 hr 2-01 } Patch to ity of patch 00:00: area(s) [place] 00 every 24 Medical (twenty-fo Branch ur) hours. Apply 21mg patch daily x 6 weeks; then apply 14mg patch daily x 2 weeks; then apply 7mg patch daily x 2 weeks. Stop smoking on treatment onset nicotine 21 2019-09 Yes [id number] 1{patch Apply 1 [facility] mg/24 hr 2-01 } Patch to ity of patch 00:00: area(s) [place] 00 every 24 Medical (twenty-fo Branch ur) hours. Apply 21mg patch daily x 6 weeks; then apply 14mg patch daily x 2 weeks; then apply 7mg patch daily x 2 weeks. Stop smoking on treatment onset nicotine 14 2019-09 Yes [id number] 1{patch Apply 1 [facility] mg/24 hr 2-01 } Patch to ity of patch 00:00: area(s) [place] 00 every 24 Medical (twenty-fo Branch ur) hours. lisinopriL 2019-09 Yes [id number] 10mg Take 1 U nivers 10 mg 2-01 tablet by ity of tablet 00:00: mouth [place] 00 daily. Medical Branch metformin 2019-09 Yes [id number] 500mg Take 1 [facility] ER 500 mg 2-01 tablet by ity o f 24 hr 00:00: mouth [place] tablet 00 daily with Medical breakfast. Branch nicotine 7 2019-09 Yes [id number] 1{patch Apply 1 [facility] mg/24 hr 2-01 } Patch to ity of patch 00:00: area(s) [place] 00 every 24 Medical (twenty-fo Branch ur) hours. Apply 21mg patch daily x 6 weeks; then apply 14mg patch daily x 2 weeks; then apply 7mg patch daily x 2 weeks. Stop smoking on treatment onset nicotine 21 2019-09 Yes [id number] 1{patch Apply 1 [facility] mg/24 hr 2-01 } Patch to ity of patch 00:00: area(s) [place] 00 every 24 Medical (twenty-fo Branch ur) hours. Apply 21mg patch daily x 6 weeks; then apply 14mg patch daily x 2 weeks; then apply 7mg patch daily x 2 weeks. Stop smoking on treatment onset nicotine 14 2019-09 Yes [id number] 1{patch Apply 1 [facility] mg/24 hr 2-01 } Patch to ity of patch 00:00: area(s) [place] 00 every 24 Medical (twenty-fo Branch ur) hours. lisinopriL 2019-09 Yes [id number] 10mg Take 1 U nivers 10 mg 2-01 tablet by ity of tablet 00:00: mouth [place] 00 daily. Medical Branch metformin 2019-09 Yes [id number] 500mg Take 1 [facility] ER 500 mg 2-01 tablet by ity o f 24 hr 00:00: mouth [place] tablet 00 daily with Medical breakfast. Branch nicotine 7 2019-09 Yes [id number] 1{patch Apply 1 [facility] mg/24 hr 2-01 } Patch to ity of patch 00:00: area(s) [place] 00 every 24 Medical (twenty-fo Branch ur) hours. Apply 21mg patch daily x 6 weeks; then apply 14mg patch daily x 2 weeks; then apply 7mg patch daily x 2 weeks. Stop smoking on treatment onset nicotine 2019-09 Yes [id number] 1{patch Apply 1 [facility] mg/24 hr 2-01 } Patch to ity of patch 00:00: area(s) [place] 00 every 24 Medical (twenty-fo Branch ur) hours. Apply 21mg patch daily x 6 weeks; then apply 14mg patch daily x 2 weeks; then apply 7mg patch daily x 2 weeks. Stop smoking on treatment onset nicotine 14 2019-09 Yes [id number] 1{patch Apply 1 [facility] mg/24 hr 2-01 } Patch to ity of patch 00:00: area(s) [place] 00 every 24 Medical (twenty-fo Branch ur) hours. lisinopriL 2019-09 Yes [id number] 10mg Take 1 U nivers 10 mg 2-01 tablet by ity of tablet 00:00: mouth [place] 00 daily. Medical Branch metformin 2019-09 Yes [id number] 500mg Take 1 [facility] ER 500 mg 2-01 tablet by ity o f 24 hr 00:00: mouth [place] tablet 00 daily with Medical breakfast. Branch nicotine 7 2019-09 Yes [id number] 1{patch Apply 1 [facility] mg/24 hr 2-01 } Patch to ity of patch 00:00: area(s) [place] 00 every 24 Medical (twenty- Branch ur) hours. Apply 21mg patch daily x 6 weeks; then apply 14mg patch daily x 2 weeks; then apply 7mg patch daily x 2 weeks. Stop smoking on treatment onset nicotine 2019-09 Yes [id number] 1{patch Apply 1 [facility] mg/24 hr 2-01 } Patch to ity of patch 00:00: area(s) [place] 00 every 24 Medical ([facility] Branch ur) hours. Apply 21mg patch daily x 6 weeks; then apply 14mg patch daily x 2 weeks; then apply 7mg patch daily x 2 weeks. Stop smoking on treatment onset nicotine 14 2019-09 Yes [id number] 1{patch Apply 1 [facility] mg/24 hr 2-01 } Patch to ity of patch 00:00: area(s) [place] 00 every 24 Medical ([facility] Branch ur) hours. lisinopriL 2019-09 Yes [id number] 10mg Take 1 U nivers 10 mg 2-01 tablet by ity of tablet 00:00: mouth [place] 00 daily. Medical Branch metformin 2019-09 Yes [id number] 500mg Take 1 [facility] ER 500 mg 2-01 tablet by ity o f 24 hr 00:00: mouth [place] tablet 00 daily with Medical breakfast. Branch nicotine 7 2019-09 Yes [id number] 1{patch Apply 1 [facility] mg/24 hr 2-01 } Patch to ity of patch 00:00: area(s) [place] 00 every 24 Medical (twenty- Branch ur) hours. Apply 21mg patch daily x 6 weeks; then apply 14mg patch daily x 2 weeks; then apply 7mg patch daily x 2 weeks. Stop smoking on treatment onset nicotine 21 2019-09 Yes [id number] 1{patch Apply 1 [facility] mg/24 hr 2-01 } Patch to ity of patch 00:00: area(s) [place] 00 every 24 Medical ([facility] ur) hours. Apply 21mg patch daily x 6 weeks; then apply 14mg patch daily x 2 weeks; then apply 7mg patch daily x 2 weeks. Stop smoking on treatment onset nicotine 14 2019-09 Yes [id number] 1{patch Apply 1 [facility] mg/24 hr 10-10 } Patch to ity of patch 00:00: [facility](s) [place] 00 every 24 Medical ([facility] Branch ur) hours. metformin 2019-09- No [id number] 500mg Take 1 [facility] ER 500 mg 10-10 tablet by ity of 24 hr 00:00: 00:00 mouth [place] tablet 00 :00 daily with Medical breakfast. Branch nicotine 7 2019-09- No [id number] 1{patch Apply 1 [facility] mg/24 hr 10-10 } Patch to ity of patch 00:00: 00:00 [facility]() [place] 00 :00 every 24 Medical ([facility] Branch ur) hours. Apply 21mg patch daily x 6 weeks; then apply 14mg patch daily x 2 weeks; then apply 7mg patch daily x 2 weeks. Stop smoking on treatment onset nicotine 21 2019-09- No [id number] 1{patch Apply 1 [facility] mg/24 hr 10-10 } Patch to ity of patch 00:00: 00:00 [facility](s) [place] 00 :00 every 24 Medical ([facility] Branch ur) hours. Apply 21mg patch daily x 6 weeks; then apply 14mg patch daily x 2 weeks; then apply 7mg patch daily x 2 weeks. Stop smoking on treatment onset nicotine 14 2019-09- No [id number] 1{patch Apply 1 [facility] mg/24 hr 10-1016 } Patch to ity of patch 00:00: 00:00 [facility](s) [place] 00 :00 every 24 Medical ([facility] Branch ur) hours. lisinopriL 2019-09- No [id number] 10mg Take 1 [facility] 10 mg 10-10 tablet by ity of tablet 00:00: 00:00 mouth [place] 00 :00 daily. Medical Branch diazePAM 2019-09- No 5mg 5 mg, [facility] (VALIUM) 10-03 Oral, ity of tablet 5 mg 18:15: 06:14 [place]CE, 1 [place] :[place] dose, Wed Medical 08/03/20 Branch at 1215, SARIAH prazosin Yes Take by Unive rs HCl 9-07 mouth. ity of (PRAZOSIN 01:57: [place] ORAL) Medical Branch furosemide 2020-0 Yes Take by Uni vers (LASIX 9-07 mouth. ity of ORAL) 01:57: [address] Branch prazosin 2020-0 Yes Take by Unive rs HCl 9-07 mouth. ity of (PRAZOSIN 01:57: [place] ORAL) [address] [place] [address] Branch furosemide 2020-0 Yes Take by Uni vers (LASIX 9-07 mouth. ity of ORAL) 01:57: [address] Branch prazosin 2020-0 Yes Take by Unive rs HCl 9-07 mouth. ity of (PRAZOSIN 01:57: [place] ORAL) [address] [place] [address] Branch furosemide 2019-0 Yes Take by Uni vers (LASIX 9-07 mouth. ity of ORAL) 01:57: [address] NaCl 0.9% 2020-0 2020- No 1000mL at 999 Uni vers (NS) bolus 05-16- mL/hr, ity of infusion 00:45: 01:28 1,000 mL, [place] 1,000 mL 00 :00 IV Medical Piggyback, [place] ONCE, 1 dose, 05/15/20 at 1945, STAT NaCl 0.9% 2019-0 2020- No 1000mL at 999 Uni vers (NS) bolus 05-15 09-07 mL/hr, ity of infusion 23:00: 01:27 1,000 mL, [place] 1,000 mL 00 :00 IV Medical Infusion, [place] ONCE, 1 dose, 05/15/20 at 1800, SARIAH hydrOXYzine 2019-0 2020- No 25mg 25 mg, [facility] vers (ATARAX) 03-22- Oral, ity of tablet 25 02:15: 01:06 ONCE, 1 [place] 00 :00 dose, [facility] Medical 03/21/20 at Branch 2115, SARIAH hydrOXYzine 2019-0 2020- No 25mg Take 25 mg [facility] (ATARAX) 25 03-22- by mouth 2 i ty of mg tablet 01:06: 00:00 (two) [place] 21 :00 times Medical daily. Branch hydrOXYzine 2020-0 Yes [id number] 25mg Take 1 [facility] 25 mg 7- tablet by ity of tablet 00:00: mouth 2 [place] 00 (two) Medical times Branch daily as needed for Itching. hydrOXYzine 2020-0 Yes [id number] 25mg Take 1 [facility] 25 mg 7-13 tablet by ity of tablet 00:00: mouth 2 (two) Medical times Branch daily as needed for Itching. hydrOXYzine 2020-0 Yes [id number] 25mg Take 1 [facility] 25 mg 7-13 tablet by ity of tablet 00:00: mouth 2 (two) Medical times Branch daily as needed for Itching. hydrOXYzine 2020-0 Yes [id number] 25mg Take 1 [facility] 25 mg 7-13 tablet by ity of tablet 00:00: mouth 2 (two) Medical times Branch daily as needed for Itching. hydrOXYzine 2020-0 Yes [id number] 25mg Take 1 [facility] 25 mg 7-13 tablet by ity of tablet 00:00: mouth (two) Medical times Branch daily as needed for Itching. hydrOXYzine 2020-0 Yes [id number] 25mg Take 1 [facility] 25 mg 7-13 tablet by ity of tablet 00:00: mouth [place] (two) Medical times Branch daily as needed for Itching. hydrOXYzine 2020-0 Yes [id number] 25mg Take 1 [facility] 25 mg 7-13 tablet by ity of tablet 00:00: mouth [place] (two) Medical times Branch daily as needed for Itching. hydrOXYzine 2020-0 Yes [id number] 25mg Take 1 [facility] 25 mg 7-13 tablet by ity of tablet 00:00: mouth [place] (two) Medical times Branch daily as needed for Itching. hydrOXYzine 2020-0 Yes [id number] 25mg Take 1 [facility] 25 mg 7-13 tablet by ity of tablet 00:00: mouth 2 [place] (two) Medical times Branch daily as needed for Itching. hydrOXYzine 2020-0 2020- No [id number] 25mg Take 1 [facility] 25 mg 7-13 12-12 tablet by ity of tablet 00:00: 00:00 mouth 2 [place] 00 :00 (two) Medical times Branch daily as needed for Itching. levothyroxi 2020-0 Yes [id number] 25ug Take 1 [facility] ne 25 mcg 5-05 tablet by ity o f tablet 00:00: mouth [place] 00 every Medical morning. Branch atorvastati 2020-0 Yes [id number] 40mg Take 1 [facility] n 40 mg 5-05 tablet by ity of tablet 00:00: mouth at [place] [address] bedtime. Medical Branch levothyroxi 2020-0 Yes [id number] 25ug Take 1 [facility] ne 25 mcg 5-05 tablet by ity o f tablet 00:00: mouth [place] 00 every Medical morning. Branch atorvastati 2020-0 Yes [id number] 40mg Take 1 [facility] n 40 mg 5-05 tablet by ity of tablet 00:00: mouth at [place] [address] bedtime. Medical Branch levothyroxi 2020-0 Yes [id number] 25ug Take 1 [facility] ne 25 mcg 5-05 tablet by ity o f tablet 00:00: mouth [place] every Medical morning. Branch atorvastati 2020-0 Yes [id number] 40mg Take 1 [facility] n 40 mg 5-05 tablet by ity of tablet 00:00: mouth at [place] [address] bedtime. Medical Branch atorvastati 2020-0 Yes [id number] 40mg Take 1 [facility] n 40 mg 5-05 tablet by ity of tablet 00:00: mouth at [place] [address] bedtime. Medical Branch atorvastati 2020-0 Yes [id number] 40mg Take 1 [facility] n 40 mg 5-05 tablet by ity of tablet 00:00: mouth at [place] [address] bedtime. Medical Branch atorvastati 2020-0 Yes [id number] 40mg Take 1 [facility] n 40 mg 5-05 tablet by ity of tablet 00:00: mouth at [place] [address] bedtime. Medical Branch atorvastati 2020-0 Yes [id number] 40mg Take 1 [facility] n 40 mg 5-05 tablet by ity of tablet 00:00: mouth at [place] [address] bedtime. Medical Branch atorvastati 2020-0 Yes [id number] 40mg Take 1 [facility] n 40 mg 5-05 tablet by ity of tablet 00:00: mouth at [place] [address] bedtime. Medical Branch atorvastati 2020-0 Yes [id number] 40mg Take 1 [facility] n 40 mg 5-05 tablet by ity of tablet 00:00: mouth at [place] [address] bedtime. Medical Branch atorvastati 2020-0 Yes [id number] 40mg Take 1 [facility] n 40 mg 5-05 tablet by ity of tablet 00:00: mouth at [place] [address] bedtime. Medical Branch atorvastati 2020-0 Yes [id number] 40mg Take 1 [facility] n 40 mg 5-05 tablet by ity of tablet 00:00: mouth at [place] [address] bedtime. Medical Branch atorvastati 2019-0 Yes [id number] 40mg Take 1 [facility] n 40 mg 5-05 tablet by ity of tablet 00:00: mouth at [place] [address] bedtime. Medical Branch atorvastati 2019-0 Yes [id number] 40mg Take 1 [facility] n 40 mg 5-05 tablet by ity of tablet 00:00: mouth at [place] [address] bedtime. Medical Branch atorvastati 2019-0 Yes [id number] 40mg Take 1 [facility] n 40 mg 5-05 tablet by ity of tablet 00:00: mouth at [place] [address] bedtime. Medical Branch atorvastati 2019-0 Yes [id number] 40mg Take 1 [facility] n 40 mg 5-05 tablet by ity of tablet 00:00: mouth at [place] [address] bedtime. Medical Branch atorvastati 2019-0 Yes [id number] 40mg Take 1 [facility] n 40 mg 5-05 tablet by ity of tablet 00:00: mouth at [place] [address] bedtime. Medical Branch atorvastati 2019-0 Yes [id number] 40mg Take 1 [facility] n 40 mg 5-05 tablet by ity of tablet 00:00: mouth at [place] [address] bedtime. Medical Branch levothyroxi 2019-0 Yes [id number] 25ug Take 1 [facility] ne 25 mcg 5-05 tablet by ity o f tablet 00:00: mouth [place] 00 every Medical morning. Branch atorvastati 2019-0 Yes [id number] 40mg Take 1 [facility] n 40 mg 5-05 tablet by ity of tablet 00:00: mouth at [place] [address] bedtime. Medical Branch nicotine 7 2019-0 Yes [id number] 1{patch Apply 1 [facility] mg/24 hr 5-05 } Patch to ity of patch 00:00: area(s) [place] 00 every 24 Medical (twenty- Branch ur) hours. Apply 21mg patch daily x 6 weeks; then apply 14mg patch daily x 2 weeks; then apply 7mg patch daily x 2 weeks. Stop smoking on treatment onset nicotine 14 2019-0 Yes [id number] 1{patch Apply 1 [facility] mg/24 hr 5-05 } Patch to ity of patch 00:00: area(s) [place] 00 every 24 Medical (twenty- Branch ur) hours. nicotine 21 2019-0 Yes [id number] 1{patch Apply 1 [facility] mg/24 hr 5-05 } Patch to ity of patch 00:00: area(s) [place] 00 every 24 Medical (twenty- Branch ur) hours. Apply 21mg patch daily x 6 weeks; then apply 14mg patch daily x 2 weeks; then apply 7mg patch daily x 2 weeks. Stop smoking on treatment onset levothyroxi 2020-0 Yes [id number] 25ug Take 1 [facility] ne 25 mcg 5-05 tablet by ity o f tablet 00:00: mouth [place] 00 every Medical morning. Branch atorvastati 2019-0 Yes [id number] 40mg Take 1 [facility] n 40 mg 5-05 tablet by ity of tablet 00:00: mouth at [place] 00 bedtime. Medical Branch nicotine 7 2019- Yes [id number] 1{patch Apply 1 [facility] mg/24 hr 5-05 } Patch to ity of patch 00:00: area(s) [place] 00 every 24 Medical (twenty- Branch ur) hours. Apply 21mg patch daily x 6 weeks; then apply 14mg patch daily x 2 weeks; then apply 7mg patch daily x 2 weeks. Stop smoking on treatment onset nicotine 14 2019-0 Yes [id number] 1{patch Apply 1 [facility] mg/24 hr 5-05 } Patch to ity of patch 00:00: area(s) [place] 00 every 24 Medical (twenty- Branch ur) hours. nicotine 21 2019-0 Yes [id number] 1{patch Apply 1 [facility] mg/24 hr 5-05 } Patch to ity of patch 00:00: area(s) [place] 00 every 24 Medical (twenty- Branch ur) hours. Apply 21mg patch daily x 6 weeks; then apply 14mg patch daily x 2 weeks; then apply 7mg patch daily x 2 weeks. Stop smoking on treatment onset levothyroxi 2020-0 Yes [id number] 25ug Take 1 [facility] ne 25 mcg 5-05 tablet by ity o f tablet 00:00: mouth [place] 00 every Medical morning. Branch atorvastati 2020-0 Yes [id number] 40mg Take 1 [facility] n 40 mg 5-05 tablet by ity of tablet 00:00: mouth at [place] 00 bedtime. Medical Branch nicotine 7 2019-0 Yes [id number] 1{patch Apply 1 [facility] mg/24 hr 5-05 } Patch to ity of patch 00:00: area(s) [place] 00 every 24 Medical (twenty- Branch ur) hours. Apply 21mg patch daily x 6 weeks; then apply 14mg patch daily x 2 weeks; then apply 7mg patch daily x 2 weeks. Stop smoking on treatment onset nicotine 14 2020-0 Yes [id number] 1{patch Apply 1 [facility] mg/24 hr 5-05 } Patch to ity of patch 00:00: [facility](s) [place] 00 every 24 Medical (twenty-fo Branch ur) hours. nicotine 21 2019-0 Yes [id number] 1{patch Apply 1 [facility] mg/24 hr 5-05 } Patch to ity of patch 00:00: area(s) [place] 00 every 24 Medical (twenty-fo Branch ur) hours. Apply 21mg patch daily x 6 weeks; then apply 14mg patch daily x 2 weeks; then apply 7mg patch daily x 2 weeks. Stop smoking on treatment onset levothyroxi 2019-0 Yes [id number] 25ug Take 1 [facility] ne 25 mcg 5-05 tablet by ity o f tablet 00:00: mouth [place] 00 every Medical morning. Branch atorvastati 2019-0 Yes [id number] 40mg Take 1 [facility] n 40 mg 5-05 tablet by ity of tablet 00:00: mouth at [place] 00 bedtime. Medical Branch nicotine 7 2019-0 Yes [id number] 1{patch Apply 1 [facility] mg/24 hr 5-05 } Patch to ity of patch 00:00: [facility](s) [place] 00 every 24 Medical (twenty-fo Branch ur) hours. Apply 21mg patch daily x 6 weeks; then apply 14mg patch daily x 2 weeks; then apply 7mg patch daily x 2 weeks. Stop smoking on treatment onset nicotine 14 2019-0 Yes [id number] 1{patch Apply 1 [facility] mg/24 hr 5-05 } Patch to ity of patch 00:00: area(s) [place] 00 every 24 Medical (twenty-fo Branch ur) hours. nicotine 21 2020-0 Yes [id number] 1{patch Apply 1 [facility] mg/24 hr 5-05 } Patch to ity of patch 00:00: [facility]() [place] 00 every 24 Medical (twenty-fo Branch ur) hours. Apply 21mg patch daily x 6 weeks; then apply 14mg patch daily x 2 weeks; then apply 7mg patch daily x 2 weeks. Stop smoking on treatment onset levothyroxi 2020-0 Yes [id number] 25ug Take 1 [facility] ne 25 mcg 5-05 tablet by ity o f tablet 00:00: mouth [place] 00 every Medical morning. Branch atorvastati 2019- Yes [id number] 40mg Take 1 [facility] n 40 mg 5-05 tablet by ity of tablet 00:00: mouth at [place] 00 bedtime. Medical Branch nicotine 7 Yes [id number] 1{patch Apply 1 [facility] mg/24 hr 5-05 } Patch to ity of patch 00:00: area(s) [place] 00 every 24 Medical (twenty- Branch ur) hours. Apply 21mg patch daily x 6 weeks; then apply 14mg patch daily x 2 weeks; then apply 7mg patch daily x 2 weeks. Stop smoking on treatment onset nicotine 14 Yes [id number] 1{patch Apply 1 [facility] mg/24 hr 5-05 } Patch to ity of patch 00:00: area(s) [place] 00 every 24 Medical ([facility] ur) hours. nicotine 21 Yes [id number] 1{patch Apply 1 [facility] mg/24 hr 5-05 } Patch to ity of patch 00:00: area(s) [place] 00 every 24 Medical ([facility] Branch ur) hours. Apply 21mg patch daily x 6 weeks; then apply 14mg patch daily x 2 weeks; then apply 7mg patch daily x 2 weeks. Stop smoking on treatment onset levothyroxi 2019- Yes [id number] 25ug Take 1 [facility] ne 25 mcg 5-05 tablet by ity o f tablet 00:00: mouth [place] 00 every Medical morning. Branch atorvastati Yes [id number] 40mg Take 1 [facility] n 40 mg 5-05 tablet by ity of tablet 00:00: mouth at [place] [address] bedtime. Medical Branch nicotine 7 Yes [id number] 1{patch Apply 1 [facility] mg/24 hr 5-05 } Patch to ity of patch 00:00: area(s) [place] 00 every 24 Medical ([facility] Branch ur) hours. Apply 21mg patch daily x 6 weeks; then apply 14mg patch daily x 2 weeks; then apply 7mg patch daily x 2 weeks. Stop smoking on treatment onset nicotine 14 2019- Yes [id number] 1{patch Apply 1 [facility] mg/24 hr 5-05 } Patch to ity of patch 00:00: area(s) [place] 00 every 24 Medical (twenty-fo Branch ur) hours. nicotine 21 2020-0 Yes [id number] 1{patch Apply 1 [facility] mg/24 hr 5-05 } Patch to ity of patch 00:00: area(s) [place] 00 every 24 Medical ([facility] ur) hours. Apply 21mg patch daily x 6 weeks; then apply 14mg patch daily x 2 weeks; then apply 7mg patch daily x 2 weeks. Stop smoking on treatment onset levothyroxi 2020-0 Yes [id number] 25ug Take 1 [facility] ne 25 mcg 5-05 tablet by ity o f tablet 00:00: mouth [place] 00 every Medical morning. Branch atorvastati 2019-0 Yes [id number] 40mg Take 1 [facility] n 40 mg 5-05 tablet by ity of tablet 00:00: mouth at [place] 00 bedtime. Medical Branch nicotine 7 2019-0 Yes [id number] 1{patch Apply 1 [facility] mg/24 hr 5-05 } Patch to ity of patch 00:00: area() [place] 00 every 24 Medical ([facility] ur) hours. Apply 21mg patch daily x 6 weeks; then apply 14mg patch daily x 2 weeks; then apply 7mg patch daily x 2 weeks. Stop smoking on treatment onset nicotine 14 2019-0 Yes [id number] 1{patch Apply 1 [facility] mg/24 hr 5-05 } Patch to ity of patch 00:00: area() [place] 00 every 24 Medical ([facility] ur) hours. nicotine 21 2019-0 Yes [id number] 1{patch Apply 1 [facility] mg/24 hr 5-05 } Patch to ity of patch 00:00: area() [place] 00 every 24 Medical ([facility] ur) hours. Apply 21mg patch daily x 6 weeks; then apply 14mg patch daily x 2 weeks; then apply 7mg patch daily x 2 weeks. Stop smoking on treatment onset levothyroxi 2020-0 Yes [id number] 25ug Take 1 [facility] ne 25 mcg 5-05 tablet by ity o f tablet 00:00: mouth [place] 00 every Medical morning. Branch atorvastati 2020-0 Yes [id number] 40mg Take 1 [facility] n 40 mg 5-05 tablet by ity of tablet 00:00: mouth at [place] 00 bedtime. Medical Branch nicotine 7 2019-0 Yes [id number] 1{patch Apply 1 [facility] mg/24 hr 5-05 } Patch to ity of patch 00:00: area(s) [place] 00 every 24 Medical (twenty-fo Branch ur) hours. Apply 21mg patch daily x 6 weeks; then apply 14mg patch daily x 2 weeks; then apply 7mg patch daily x 2 weeks. Stop smoking on treatment onset nicotine 14 2020-0 Yes [id number] 1{patch Apply 1 [facility] mg/24 hr 5-05 } Patch to ity of patch 00:00: area(s) [place] 00 every 24 Medical (twenty-fo Branch ur) hours. nicotine 21 2019-0 Yes [id number] 1{patch Apply 1 [facility] mg/24 hr 5-05 } Patch to ity of patch 00:00: area(s) [place] 00 every 24 Medical (twenty-fo Branch ur) hours. Apply 21mg patch daily x 6 weeks; then apply 14mg patch daily x 2 weeks; then apply 7mg patch daily x 2 weeks. Stop smoking on treatment onset levothyroxi 2019-0 Yes [id number] 25ug Take 1 [facility] ne 25 mcg 5-05 tablet by ity o f tablet 00:00: mouth [place] 00 every Medical morning. Branch atorvastati 2019-0 Yes [id number] 40mg Take 1 [facility] n 40 mg 5-05 tablet by ity of tablet 00:00: mouth at [place] 00 bedtime. Medical Branch nicotine 7 2019-0 Yes [id number] 1{patch Apply 1 [facility] mg/24 hr 5-05 } Patch to ity of patch 00:00: area(s) [place] 00 every 24 Medical (twenty-fo Branch ur) hours. Apply 21mg patch daily x 6 weeks; then apply 14mg patch daily x 2 weeks; then apply 7mg patch daily x 2 weeks. Stop smoking on treatment onset nicotine 14 2019-0 Yes [id number] 1{patch Apply 1 [facility] mg/24 hr 5-05 } Patch to ity of patch 00:00: area(s) [place] 00 every 24 Medical (twenty-fo Branch ur) hours. nicotine 21 2020-0 Yes [id number] 1{patch Apply 1 [facility] mg/24 hr 5-05 } Patch to ity of patch 00:00: area(s) [place] 00 every 24 Medical (twenty-fo Branch ur) hours. Apply 21mg patch daily x 6 weeks; then apply 14mg patch daily x 2 weeks; then apply 7mg patch daily x 2 weeks. Stop smoking on treatment onset levothyroxi 2020-0 Yes [id number] 25ug Take 1 [facility] ne 25 mcg 5-05 tablet by ity o f tablet 00:00: mouth [place] 00 every Medical morning. Branch atorvastati 2019- Yes [id number] 40mg Take 1 [facility] n 40 mg 5-05 tablet by ity of tablet 00:00: mouth at [place] 00 bedtime. Medical Branch nicotine 7 Yes [id number] 1{patch Apply 1 [facility] mg/24 hr 5-05 } Patch to ity of patch 00:00: area(s) [place] 00 every 24 Medical (twenty- Branch ur) hours. Apply 21mg patch daily x 6 weeks; then apply 14mg patch daily x 2 weeks; then apply 7mg patch daily x 2 weeks. Stop smoking on treatment onset nicotine 14 Yes [id number] 1{patch Apply 1 [facility] mg/24 hr 5-05 } Patch to ity of patch 00:00: area(s) [place] 00 every 24 Medical ([facility] Branch ur) hours. nicotine 21 Yes [id number] 1{patch Apply 1 [facility] mg/24 hr 5-05 } Patch to ity of patch 00:00: area(s) [place] 00 every 24 Medical (twenty- Branch ur) hours. Apply 21mg patch daily x 6 weeks; then apply 14mg patch daily x 2 weeks; then apply 7mg patch daily x 2 weeks. Stop smoking on treatment onset levothyroxi 2020-0 Yes [id number] 25ug Take 1 [facility] ne 25 mcg 5-05 tablet by ity o f tablet 00:00: mouth [place] 00 every Medical morning. Branch atorvastati 2019- Yes [id number] 40mg Take 1 [facility] n 40 mg 5-05 tablet by ity of tablet 00:00: mouth at [place] 00 bedtime. Medical Branch nicotine 7 Yes [id number] 1{patch Apply 1 [facility] mg/24 hr 5-05 } Patch to ity of patch 00:00: area(s) [place] 00 every 24 Medical (twenty- Branch ur) hours. Apply 21mg patch daily x 6 weeks; then apply 14mg patch daily x 2 weeks; then apply 7mg patch daily x 2 weeks. Stop smoking on treatment onset nicotine 14 Yes [id number] 1{patch Apply 1 [facility] mg/24 hr 5-05 } Patch to ity of patch 00:00: area(s) [place] 00 every 24 Medical (twenty-[facility] Branch ur) hours. nicotine 21 2020-0 Yes [id number] 1{patch Apply 1 [facility] mg/24 hr 5-05 } Patch to ity of patch 00:00: area(s) [place] 00 every 24 Medical (twenty-fo Branch ur) hours. Apply 21mg patch daily x 6 weeks; then apply 14mg patch daily x 2 weeks; then apply 7mg patch daily x 2 weeks. Stop smoking on treatment onset levothyroxi 2020-0 Yes [id number] 25ug Take 1 [facility] ne 25 mcg 5-05 tablet by ity o f tablet 00:00: mouth [place] 00 every Medical morning. Branch atorvastati 2019-0 Yes [id number] 40mg Take 1 [facility] n 40 mg 5-05 tablet by ity of tablet 00:00: mouth at [place] 00 bedtime. Medical Branch nicotine 7 2019-0 Yes [id number] 1{patch Apply 1 [facility] mg/24 hr 5-05 } Patch to ity of patch 00:00: area(s) [place] 00 every 24 Medical (twenty-[facility] Branch ur) hours. Apply 21mg patch daily x 6 weeks; then apply 14mg patch daily x 2 weeks; then apply 7mg patch daily x 2 weeks. Stop smoking on treatment onset nicotine 14 2019-0 Yes [id number] 1{patch Apply 1 [facility] mg/24 hr 5-05 } Patch to ity of patch 00:00: area(s) [place] 00 every 24 Medical (twenty-fo Branch ur) hours. nicotine 21 2020-0 Yes [id number] 1{patch Apply 1 [facility] mg/24 hr 5-05 } Patch to ity of patch 00:00: area(s) [place] 00 every 24 Medical (twenty-fo Branch ur) hours. Apply 21mg patch daily x 6 weeks; then apply 14mg patch daily x 2 weeks; then apply 7mg patch daily x 2 weeks. Stop smoking on treatment onset levothyroxi 2020-0 Yes [id number] 25ug Take 1 [facility] ne 25 mcg 5-05 tablet by ity o f tablet 00:00: mouth [place] 00 every Medical morning. Branch atorvastati 2020-0 Yes [id number] 40mg Take 1 [facility] n 40 mg 5-05 tablet by ity of tablet 00:00: mouth at [place] [address] bedtime. Medical Branch nicotine 7 2020-0 Yes [id number] 1{patch Apply 1 [facility] mg/24 hr 5-05 } Patch to ity of patch 00:00: area(s) [place] 00 every 24 Medical (twenty-[facility] Branch ur) hours. Apply 21mg patch daily x 6 weeks; then apply 14mg patch daily x 2 weeks; then apply 7mg patch daily x 2 weeks. Stop smoking on treatment onset nicotine 14 2020-0 Yes [id number] 1{patch Apply 1 [facility] mg/24 hr 5-05 } Patch to ity of patch 00:00: area(s) [place] 00 every 24 Medical (twenty-[facility] Branch ur) hours. nicotine 21 2020-0 Yes [id number] 1{patch Apply 1 [facility] mg/24 hr 5-05 } Patch to ity of patch 00:00: [facility]() [place] 00 every 24 Medical (twenty-fo Branch ur) hours. Apply 21mg patch daily x 6 weeks; then apply 14mg patch daily x 2 weeks; then apply 7mg patch daily x 2 weeks. Stop smoking on treatment onset levothyroxi 2020-0 Yes [id number] 25ug Take 1 [facility] ne 25 mcg 5-05 tablet by ity o f tablet 00:00: mouth [place] 00 every Medical morning. Branch atorvastati 2020-0 Yes [id number] 40mg Take 1 [facility] n 40 mg 5-05 tablet by ity of tablet 00:00: mouth at [place] [address] bedtime. Medical Branch nicotine 7 2020-0 Yes [id number] 1{patch Apply 1 [facility] mg/24 hr 5-05 } Patch to ity of patch 00:00: area(s) [place] 00 every 24 Medical (twenty-[facility] Branch ur) hours. Apply 21mg patch daily x 6 weeks; then apply 14mg patch daily x 2 weeks; then apply 7mg patch daily x 2 weeks. Stop smoking on treatment onset nicotine 14 2020-0 Yes [id number] 1{patch Apply 1 [facility] mg/24 hr 5-05 } Patch to ity of patch 00:00: [facility](s) [place] 00 every 24 Medical (twenty-fo Branch ur) hours. nicotine 21 2020-0 Yes [id number] 1{patch Apply 1 [facility] mg/24 hr 5-05 } Patch to ity of patch 00:00: area(s) [place] 00 every 24 Medical (twenty-fo Branch ur) hours. Apply 21mg patch daily x 6 weeks; then apply 14mg patch daily x 2 weeks; then apply 7mg patch daily x 2 weeks. Stop smoking on treatment onset levothyroxi 2020-0 Yes [id number] 25ug Take 1 [facility] ne 25 mcg 5-05 tablet by ity o f tablet 00:00: mouth [place] 00 every Medical morning. Branch atorvastati 2020-0 Yes [id number] 40mg Take 1 [facility] n 40 mg 5-05 tablet by ity of tablet 00:00: mouth at [place] 00 bedtime. Medical Branch nicotine 7 2019-0 Yes [id number] 1{patch Apply 1 [facility] mg/24 hr 5-05 } Patch to ity of patch 00:00: area(s) [place] 00 every 24 Medical ([facility] ur) hours. Apply 21mg patch daily x 6 weeks; then apply 14mg patch daily x 2 weeks; then apply 7mg patch daily x 2 weeks. Stop smoking on treatment onset nicotine 14 2019-0 Yes [id number] 1{patch Apply 1 [facility] mg/24 hr 5-05 } Patch to ity of patch 00:00: area(s) [place] 00 every 24 Medical ([facility] ur) hours. nicotine 21 2019-0 Yes [id number] 1{patch Apply 1 [facility] mg/24 hr 5-05 } Patch to ity of patch 00:00: area(s) [place] 00 every 24 Medical ([facility] ur) hours. Apply 21mg patch daily x 6 weeks; then apply 14mg patch daily x 2 weeks; then apply 7mg patch daily x 2 weeks. Stop smoking on treatment onset levothyroxi 2020-0 Yes [id number] 25ug Take 1 [facility] ne 25 mcg 5-05 tablet by ity o f tablet 00:00: mouth [place] 00 every Medical morning. Branch atorvastati 2020-0 Yes [id number] 40mg Take 1 [facility] n 40 mg 5-05 tablet by ity of tablet 00:00: mouth at [place] 00 bedtime. Medical Branch nicotine 7 2019-0 Yes [id number] 1{patch Apply 1 [facility] mg/24 hr 5-05 } Patch to ity of patch 00:00: area(s) [place] 00 every 24 Medical ([facility] ur) hours. Apply 21mg patch daily x 6 weeks; then apply 14mg patch daily x 2 weeks; then apply 7mg patch daily x 2 weeks. Stop smoking on treatment onset nicotine 14 2020-0 Yes [id number] 1{patch Apply 1 [facility] mg/24 hr 5-05 } Patch to ity of patch 00:00: area(s) [place] 00 every 24 Medical (twenty-fo Branch ur) hours. nicotine 21 2020-0 Yes [id number] 1{patch Apply 1 [facility] mg/24 hr 5-05 } Patch to ity of patch 00:00: area(s) [place] 00 every 24 Medical (twenty-fo Branch ur) hours. Apply 21mg patch daily x 6 weeks; then apply 14mg patch daily x 2 weeks; then apply 7mg patch daily x 2 weeks. Stop smoking on treatment onset levothyroxi 2020-0 Yes [id number] 25ug Take 1 [facility] ne 25 mcg 5-05 tablet by ity o f tablet 00:00: mouth [place] 00 every Medical morning. Branch atorvastati 2020-0 Yes [id number] 40mg Take 1 [facility] n 40 mg 5-05 tablet by ity of tablet 00:00: mouth at [place] 00 bedtime. Medical Branch levothyroxi 2020-0 Yes [id number] 25ug Take 1 [facility] ne 25 mcg 5-05 tablet by ity o f tablet 00:00: mouth [place] 00 every Medical morning. Branch atorvastati 2020-0 Yes [id number] 40mg Take 1 [facility] n 40 mg 5-05 tablet by ity of tablet 00:00: mouth at [place] 00 bedtime. Medical Branch levothyroxi 2020-0 Yes [id number] 25ug Take 1 [facility] ne 25 mcg 5-05 tablet by ity o f tablet 00:00: mouth [place] 00 every Medical morning. Branch atorvastati 2020-0 Yes [id number] 40mg Take 1 [facility] n 40 mg 5-05 tablet by ity of tablet 00:00: mouth at [place] 00 bedtime. Medical Branch levothyroxi 2020-0 Yes [id number] 25ug Take 1 [facility] ne 25 mcg 5-05 tablet by ity o f tablet 00:00: mouth [place] 00 every Medical morning. Branch atorvastati 2020-0 Yes [id number] 40mg Take 1 [facility] n 40 mg 5-05 tablet by ity of tablet 00:00: mouth at [place] 00 bedtime. Medical Branch levothyroxi 2020-0 Yes [id number] 25ug Take 1 [facility] ne 25 mcg 5-05 tablet by ity o f tablet 00:00: mouth [place] 00 every Medical morning. Branch atorvastati 2019- Yes [id number] 40mg Take 1 [facility] n 40 mg 5-05 tablet by ity of tablet 00:00: mouth at [place] 00 bedtime. Medical Branch levothyroxi 2019- Yes [id number] 25ug Take 1 [facility] ne 25 mcg 5-05 tablet by ity o f tablet 00:00: mouth [place] 00 every Medical morning. Branch atorvastati 2019- Yes [id number] 40mg Take 1 [facility] n 40 mg 5-05 tablet by ity of tablet 00:00: mouth at [place] 00 bedtime. Medical Branch levothyroxi 2019- Yes [id number] 25ug Take 1 [facility] ne 25 mcg 5-05 tablet by ity o f tablet 00:00: mouth [place] 00 every Medical morning. Branch atorvastati Yes [id number] 40mg Take 1 [facility] n 40 mg 5-05 tablet by ity of tablet 00:00: mouth at [place] 00 bedtime. Medical Branch atorvastati 2020- No [id number] 40mg Take 1 [facility] n 40 mg 5-05 03-31 tablet by ity of tablet 00:00: 00:00 mouth at [place] 00 :00 bedtime. Medical Branch levothyroxi 2019-2020- No [id number] 25ug Take 1 [facility] ne 25 mcg 5-05 02-23 tablet by ity of tablet 00:00: 00:00 mouth [place] 00 :00 every Medical morning. Branch nicotine 7 2019- No [id number] 1{patch Apply 1 [facility] mg/24 hr -08-09 } Patch to ity of patch 00:00: 00:00 area(s) [place] 00 :00 every 24 Medical (twenty- Branch ur) hours. Apply 21mg patch daily x 6 weeks; then apply 14mg patch daily x 2 weeks; then apply 7mg patch daily x 2 weeks. Stop smoking on treatment onset nicotine 14 2019- No [id number] 1{patch Apply 1 [facility] mg/24 hr 5-05 08-09 } Patch to ity of patch 00:00: 00:00 area(s) [place] 00 :00 every 24 Medical (twenty- Branch ur) hours. nicotine 21 2019- No [id number] 1{patch Apply 1 [facility] mg/24 hr 01-11 } Patch to ity of patch 00:00: 00:00 [facility]() [place] 00 :00 every 24 Medical ([facility] Branch ur) hours. Apply 21mg patch daily x 6 weeks; then apply 14mg patch daily x 2 weeks; then apply 7mg patch daily x 2 weeks. Stop smoking on treatment onset nicotine 7 2019- No [id number] 1{patch Apply 1 [facility] mg/24 hr 01-11 } Patch to ity of patch 00:00: 00:00 [facility]() [place] 00 :00 every 24 Medical ([facility] Branch ur) hours. Apply 21mg patch daily x 6 weeks; then apply 14mg patch daily x 2 weeks; then apply 7mg patch daily x 2 weeks. Stop smoking on treatment onset nicotine 14 2019- No [id number] 1{patch Apply 1 [facility] mg/24 hr 01-11 } Patch to ity of patch 00:00: 00:00 [facility]() [place] 00 :00 every 24 Medical ([facility] ur) hours. nicotine 21 2019- No [id number] 1{patch Apply 1 [facility] mg/24 hr 01-11 } Patch to ity of patch 00:00: 00:00 [facility]() [place] 00 :00 every 24 Medical ([facility] Branch ur) hours. Apply 21mg patch daily x 6 weeks; then apply 14mg patch daily x 2 weeks; then apply 7mg patch daily x 2 weeks. Stop smoking on treatment onset furosemide 2020- No 20mg Take 1 [facility] ers 20 mg 5-05 05-05 tablet by ity of tablet 00:00: 00:00 mouth [place] 00 :00 daily. Medical Branch furosemide 0 2020- No 20mg Take 1 [facility] ers 20 mg 5-05 05-05 tablet by ity of tablet 00:00: 00:00 mouth [place] 00 :00 daily. Medical Branch FUROSEMIDE 2020-0 Yes [id number] TAKE ONE [facility] 20 mg 3-29 TABLET BY ity of tablet 00:00: MOUTH [place] 00 DAILY Medical Branch FUROSEMIDE 2020-0 Yes [id number] TAKE ONE [facility] 20 mg 3-29 TABLET BY ity of tablet 00:00: MOUTH [place] 00 DAILY Medical Branch FUROSEMIDE 2019-0 2020- No [id number] TAKE ONE [facility] 20 mg 3-29 05-05 TABLET BY ity of tablet 00:00: 00:00 MOUTH [place] 00 :00 DAILY Medical Branch FUROSEMIDE 2020- No [id number] TAKE ONE [facility] 20 mg 3-29 05-05 TABLET BY ity of tablet 00:00: 00:00 MOUTH [place] 00 :00 DAILY Medical Branch LEVOTHYROXI 2018-09 Yes [id number] TAKE ONE [facility] NE 25 mcg 0-22 TABLET BY ity o f tablet 00:00: MOUTH [place] 00 EVERY Medical MORNING Branch LEVOTHYROXI 2018-09 Yes [id number] TAKE ONE [facility] NE 25 mcg 0-22 TABLET BY ity o f tablet 00:00: MOUTH [place] 00 EVERY Medical MORNING Branch LEVOTHYROXI 2018-09 2020- No [id number] TAKE ONE [facility] NE 25 mcg 0-22 05-05 TABLET BY ity of tablet 00:00: 00:00 MOUTH [place] 00 :00 EVERY Medical MORNING Branch LEVOTHYROXI 2018-09 2020- No [id number] TAKE ONE [facility] NE 25 mcg 0-22 05-05 TABLET BY ity of tablet 00:00: 00:00 MOUTH [place] 00 :00 EVERY Medical MORNING Branch nicotine 2018-09 Yes [id number] 1{patch Apply 1 [facility] (NICODERM 0-03 } Patch to ity of CQ) 21 00:00: area(s) [place] mg/24 hr 00 every 24 Medical patch (twentyfo Branch ur) hours. Apply 21mg patch to skin qDay x 6wks, then apply 14 mg Patch to skin qDay x 2wks, then apply 7mg Patch to skin qDay x 2wks. Start on cigarette quit day nicotine 2018-09 Yes [id number] 1{patch Apply 1 [facility] (NICODERM 0-03 } Patch to ity of CQ) 21 00:00: area(s) [place] mg/24 hr 00 every 24 Medical patch (twenty-fo Branch ur) hours. Apply 21mg patch to skin qDay x 6wks, then apply 14 mg Patch to skin qDay x 2wks, then apply 7mg Patch to skin qDay x 2wks. Start on cigarette quit day nicotine 2018-09 2020- No [id number] 1{patch Apply 1 [facility] (NICODERM 0-03 05-05 } Patch to ity o f CQ) 21 00:00: 00:00 area(s) [place] mg/24 hr 00 :00 every 24 Medical patch ([facility] ur) hours. Apply 21mg patch to skin qDay x 6wks, then apply 14 mg Patch to skin qDay x 2wks, then apply 7mg Patch to skin qDay x 2wks. Start on cigarette quit day nicotine 2018-09 2020- No [id number] 1{patch Apply 1 [facility] (NICODERM 0-03 05-05 } Patch to ity o f CQ) 21 00:00: 00:00 area(s) [place] mg/24 hr 00 :00 every 24 Medical patch (twenty-[facility] ur) hours. Apply 21mg patch to skin qDay x 6wks, then apply 14 mg Patch to skin qDay x 2wks, then apply 7mg Patch to skin qDay x 2wks. Start on cigarette quit day FLUoxetine 2018-09 Yes 40mg Take 40 mg U nivers (PROZAC) 40 0-01 by mouth ity of mg capsule 18:57: daily. [address] hydrOXYzine 2018-09 Yes 25mg Take 25 mg Univers (ATARAX) 25 0-01 by mouth 2 it y of mg tablet 18:57: (two) [place] 50 times Medical daily. Branch Iloperidone 2018-09 Yes 1{tbl} Take 1 Tab Univers (FANAPT) 6 0-01 by mouth 2 ity of mg Tab 18:57: (two) [place] 50 times Medical daily. Branch FLUoxetine 2018-09 Yes 40mg Take 40 mg U nivers (PROZAC) 40 0-01 by mouth ity of mg capsule 18:57: daily. [address] hydrOXYzine 2018-09 Yes 25mg Take 25 mg Univers (ATARAX) 25 0-01 by mouth 2 it y of mg tablet 18:57: (two) [place] 50 times Medical daily. Branch Iloperidone 2018-09 Yes 1{tbl} Take 1 Tab [facility] (FANAPT) 6 0-01 by mouth 2 ity of mg Tab 18:57: (two) [place] 50 times Medical daily. Branch FLUoxetine 2018-09 Yes 40mg Take 40 mg U nivers (PROZAC) 40 0-01 by mouth ity of mg capsule 18:57: daily. [address] hydrOXYzine 2018-09 Yes 25mg Take 25 mg [facility] (ATARAX) 25 0-01 by mouth 2 it y of mg tablet 18:57: (two) [place] 50 times Medical daily. Branch Iloperidone 2018-09 Yes 1{tbl} Take 1 Tab [facility] (FANAPT) 6 0-01 by mouth 2 ity of mg Tab 18:57: (two) [place] 50 times Medical daily. Branch FLUoxetine 2018-09 Yes 40mg Take 40 mg U nivers (PROZAC) 40 0-01 by mouth ity of mg capsule 18:57: daily. [address] Branch hydrOXYzine 2018-09 Yes 25mg Take 25 mg Univers (ATARAX) 25 0-01 by mouth 2 it y of mg tablet 18:57: (two) [place] 50 times Medical daily. Branch Iloperidone 2018-09 Yes 1{tbl} Take 1 Tab [facility] (FANAPT) 6 0-01 by mouth 2 ity of mg Tab 18:57: (two) [place] 50 times Medical daily. Branch FLUoxetine 2018-09 Yes 40mg Take 40 mg U nivers (PROZAC) 40 0-01 by mouth ity of mg capsule 18:57: daily. [address] hydrOXYzine 2018-09 Yes 25mg Take 25 mg [facility] (ATARAX) 25 0-01 by mouth 2 it y of mg tablet 18:57: (two) [place] 50 times Medical daily. Branch Iloperidone 2018-09 Yes 1{tbl} Take 1 Tab [facility] (FANAPT) 6 0-01 by mouth 2 ity of mg Tab 18:57: (two) [place] 50 times Medical daily. Branch FLUoxetine 2018-09 Yes 40mg Take 40 mg U nivers (PROZAC) 40 0-01 by mouth ity of mg capsule 18:57: daily. [address] Branch hydrOXYzine 2018-09 Yes 25mg Take 25 mg [facility] (ATARAX) 25 0-01 by mouth 2 it y of mg tablet 18:57: (two) [place] 50 times Medical daily. Branch Iloperidone 2018-09 Yes 1{tbl} Take 1 Tab [facility] (FANAPT) 6 0-01 by mouth 2 ity of mg Tab 18:57: (two) [place] 50 times Medical daily. Branch FLUoxetine 2018-09 Yes 40mg Take 40 mg U nivers (PROZAC) 40 0-01 by mouth ity of mg capsule 18:57: daily. [address] hydrOXYzine 2018-09 Yes 25mg Take 25 mg [facility] (ATARAX) 25 0-01 by mouth 2 it y of mg tablet 18:57: (two) [place] 50 times Medical daily. Branch Iloperidone 2018-09 Yes 1{tbl} Take 1 Tab [facility] (FANAPT) 6 0-01 by mouth 2 ity of mg Tab 18:57: (two) [place] 50 times Medical daily. Branch FLUoxetine 2018-09 Yes 40mg Take 40 mg U nivers (PROZAC) 40 0-01 by mouth ity of mg capsule 18:57: daily. [place] [address] Medical Branch hydrOXYzine 2018-09 Yes 25mg Take 25 mg Univers (ATARAX) 25 0-01 by mouth 2 it y of mg tablet 18:57: (two) [place] 50 times Medical daily. Branch Iloperidone 2018-09 Yes 1{tbl} Take 1 Tab [facility] (FANAPT) 6 0-01 by mouth 2 ity of mg Tab 18:57: (two) [place] 50 times Medical daily. Branch FLUoxetine 2018-09 Yes 40mg Take 40 mg U nivers (PROZAC) 40 0-01 by mouth ity of mg capsule 18:57: daily. [address] Branch hydrOXYzine 2018-09 Yes 25mg Take 25 mg Univers (ATARAX) 25 0-01 by mouth 2 it y of mg tablet 18:57: (two) [place] 50 times Medical daily. Branch Iloperidone 2018-09 Yes 1{tbl} Take 1 Tab [facility] (FANAPT) 6 0-01 by mouth 2 ity of mg Tab 18:57: (two) [place] 50 times Medical daily. Branch FLUoxetine 2018-09 Yes 40mg Take 40 mg U nivers (PROZAC) 40 0-01 by mouth ity of mg capsule 18:57: daily. [address] Branch hydrOXYzine 2018-09 Yes 25mg Take 25 mg Univers (ATARAX) 25 0-01 by mouth 2 it y of mg tablet 18:57: (two) [place] 50 times Medical daily. Branch Iloperidone 2018-09 Yes 1{tbl} Take 1 Tab Univers (FANAPT) 6 0-01 by mouth 2 ity of mg Tab 18:57: (two) [place] 50 times Medical daily. Branch FLUoxetine 2018-09 Yes 40mg Take 40 mg U nivers (PROZAC) 40 0-01 by mouth ity of mg capsule 18:57: daily. [address] hydrOXYzine 2018-09 Yes 25mg Take 25 mg Univers (ATARAX) 25 0-01 by mouth 2 it y of mg tablet 18:57: (two) [place] 50 times Medical daily. Branch Iloperidone 2018-09 Yes 1{tbl} Take 1 Tab [facility] (FANAPT) 6 0-01 by mouth 2 ity of mg Tab 18:57: (two) [place] 50 times Medical daily. Branch FLUoxetine 2018-09 Yes 40mg Take 40 mg U nivers (PROZAC) 40 0-01 by mouth ity of mg capsule 18:57: daily. [address] 2018-09 Yes 1{tbl} Take 1 Tab [facility] (FANAPT) 6 0-01 by mouth 2 ity of mg Tab 18:57: (two) [place] 50 times Medical daily. Branch FLUoxetine 2018-09 Yes 40mg Take 40 mg U nivers (PROZAC) 40 0-01 by mouth ity of mg capsule 18:57: daily. [address] Iloperidone 2018-09 Yes 1{tbl} Take 1 Tab [facility] (FANAPT) 6 0-01 by mouth 2 ity of mg Tab 18:57: (two) [place] 50 times Medical daily. Branch FLUoxetine 2018-09 Yes 40mg Take 40 mg U nivers (PROZAC) 40 0-01 by mouth ity of mg capsule 18:57: daily. [address] Iloperidone 2018-09 Yes 1{tbl} Take 1 Tab [facility] (FANAPT) 6 0-01 by mouth 2 ity of mg Tab 18:57: (two) [place] 50 times Medical daily. Branch FLUoxetine 2018-09 Yes 40mg Take 40 mg U nivers (PROZAC) 40 0-01 by mouth ity of mg capsule 18:57: daily. [address] Iloperidone 2018-09 Yes 1{tbl} Take 1 Tab [facility] (FANAPT) 6 0-01 by mouth 2 ity of mg Tab 18:57: (two) [place] 50 times Medical daily. Branch FLUoxetine 2018-09 Yes 40mg Take 40 mg U nivers (PROZAC) 40 0-01 by mouth ity of mg capsule 18:57: daily. [address] Iloperidone 2018-09 Yes 1{tbl} Take 1 Tab [facility] (FANAPT) 6 0-01 by mouth 2 ity of mg Tab 18:57: (two) [place] 50 times Medical daily. Branch FLUoxetine 2018-09 Yes 40mg Take 40 mg U nivers (PROZAC) 40 0-01 by mouth ity of mg capsule 18:57: daily. [address] Iloperidone 2018-09 Yes 1{tbl} Take 1 Tab [facility] (FANAPT) 6 0-01 by mouth 2 ity of mg Tab 18:57: (two) [place] 50 times Medical daily. Branch FLUoxetine 2018-09 Yes 40mg Take 40 mg U nivers (PROZAC) 40 0-01 by mouth ity of mg capsule 18:57: daily. [address] Iloperidone 2018-09 Yes 1{tbl} Take 1 Tab [facility] (FANAPT) 6 0-01 by mouth 2 ity of mg Tab 18:57: (two) [place] 50 times Medical daily. [place] FUROSEMIDE 2020- No [id number] TAKE ONE [facility] 20 mg 9-17 03-29 TABLET BY ity of tablet 00:00: 00:00 MOUTH [place] 00 :00 DAILY Medical [place] FUROSEMIDE 2020- No [id number] TAKE ONE [facility] 20 mg 7-18 03-29 TABLET BY ity of tablet 00:00: 00:00 MOUTH [place] 00 :00 DAILY [facility] ATORVASTA 2017-09 Yes [id number] TAKE ONE Univers N 40 mg 1-06 TABLET BY ity of tablet 00:00: MOUTH [place] 00 EVERY Medical NIGHT AT [facility]09 Yes [id number] TAKE ONE [facility] N 40 mg 1-06 TABLET BY ity of tablet 00:00: MOUTH AT [address] [facility] Yes [id number] TAKE ONE [facility] N 40 mg 1-06 TABLET BY ity of tablet 00:00: MOUTH [place] 00 EVERY Medical NIGHT AT [facility] Yes [id number] TAKE ONE [facility] N 40 mg 1-06 TABLET BY ity of tablet 00:00: [address]TH [address] [facility] 2020- No [id number] TAKE ONE [facility] N 40 mg 1-06 05-05 TABLET BY ity of tablet 00:00: 00:00 MOUTH [place] 00 :00 EVERY Medical NIGHT AT [facility] 2020- No [id number] TAKE ONE [facility] N 40 mg 1-06 05-05 TABLET BY ity of tablet 00:00: 00:00 MOUTH AT [place] 00 :00 BEDTIME Medical Branch ATORHECTOR 2017-09- No [id number] TAKE ONE [facility] N 40 mg 1-06 05-05 TABLET BY ity of tablet 00:00: 00:00 MOUTH [place] 00 :00 EVERY Medical NIGHT AT Branch [facility] No [id number] TAKE ONE [facility] N 40 mg -06 05-05 TABLET BY ity of tablet 00:00: 00:00 MOUTH AT [place] 00 :00 BEDTIME Medical Branch proMETHazin 2018-0 Yes 25mg Take 1 Univ ers e 25 mg 9-19 tablet by ity of tablet 00:00: mouth [place] 00 every 6 Medical (six) Branch hours as needed for Nausea and Vomiting (N/V). proMETHazin 2018-0 Yes 25mg Take 1 Univ ers e 25 mg 9-19 tablet by ity of tablet 00:00: mouth [place] 00 every 6 Medical (six) Branch hours as needed for Nausea and Vomiting (N/V). proMETHazin 2018-0 Yes 25mg Take 1 Univ ers e 25 mg 9-19 tablet by ity of tablet 00:00: mouth [place] 00 every 6 Medical (six) Branch hours as needed for Nausea and Vomiting (N/V). proMETHazin 2018-0 Yes 25mg Take 1 Univ ers e 25 mg 9-19 tablet by ity of tablet 00:00: mouth [place] 00 every 6 Medical (six) Branch hours as needed for Nausea and Vomiting (N/V). proMETHazin 2018-0 Yes 25mg Take 1 Univ ers e 25 mg 9-19 tablet by ity of tablet 00:00: mouth [place] 00 every 6 Medical (six) Branch hours as needed for Nausea and Vomiting (N/V). proMETHazin 2018-0 Yes 25mg Take 1 Univ ers e 25 mg 9-19 tablet by ity of tablet 00:00: mouth [place] 00 every 6 Medical (six) Branch hours as needed for Nausea and Vomiting (N/V). proMETHazin 2018-0 Yes 25mg Take 1 Univ ers e 25 mg 9-19 tablet by ity of tablet 00:00: mouth [place] 00 every 6 Medical (six) Branch hours as needed for Nausea and Vomiting (N/V). proMETHazin 2018-0 Yes 25mg Take 1 Univ ers e 25 mg 9-19 tablet by ity of tablet 00:00: mouth [place] 00 every 6 Medical (six) Branch hours as needed for Nausea and Vomiting (N/V). proMETHazin 2018-0 Yes 25mg Take 1 Univ ers e 25 mg 9-19 tablet by ity of tablet 00:00: mouth [place] 00 every 6 Medical (six) Branch hours as needed for Nausea and Vomiting (N/V). proMETHazin 2018-0 Yes 25mg Take 1 Univ ers e 25 mg 9-19 tablet by ity of tablet 00:00: mouth [place] 00 every 6 Medical (six) Branch hours as needed for Nausea and Vomiting (N/V). proMETHazin 2018-0 Yes 25mg Take 1 Univ ers e 25 mg 9-19 tablet by ity of tablet 00:00: mouth [place] 00 every 6 Medical (six) Branch hours as needed for Nausea and Vomiting (N/V). acetaminoph 2018-0 Yes 1{tbl} Take 1 [facility] en-codeine 9-19 tablet by ity of 300-30 mg 00:00: mouth [place] tablet 00 every 6 Medical (six) Branch hours as needed (pain). proMETHazin 2018-0 Yes 25mg Take 1 Univ ers e 25 mg 9-19 tablet by [facility] tablet 00:00: mouth [place] 00 every 6 Medical (six) Branch hours as needed for Nausea and Vomiting (N/V). acetaminoph 2018-0 Yes 1{tbl} Take 1 [facility] en-codeine 9-19 tablet by [facility] 300-30 mg 00:00: mouth [place] tablet 00 every 6 Medical (six) Branch hours as needed (pain). proMETHazin 2018-0 Yes 25mg Take 1 [facility] 25 mg 9-19 tablet by [facility] tablet 00:00: mouth [place] 00 every 6 Medical (six) Branch hours as needed for Nausea and Vomiting (N/V). proMETHazin 2018-0 Yes 25mg Take 1 [facility] 25 mg 9-19 tablet by [facility] tablet 00:00: mouth [place] 00 every 6 Medical (six) Branch hours as needed for Nausea and Vomiting (N/V). proMETHazin 2018-0 Yes 25mg Take 1 [facility] 25 mg 9-19 tablet by [facility] tablet 00:00: mouth [place] 00 every 6 Medical (six) Branch hours as needed for Nausea and Vomiting (N/V). proMETHazin 2018-0 Yes 25mg Take 1 [facility] 25 mg 9-19 tablet by [facility] tablet 00:00: mouth [place] 00 every 6 Medical (six) Branch hours as needed for Nausea and Vomiting (N/V). proMETHazin 2018-0 Yes 25mg Take 1 [facility] 25 mg 9-19 tablet by [facility] tablet 00:00: mouth [place] 00 every 6 Medical (six) Branch hours as needed for Nausea and Vomiting (N/V). proMETHazin 2018-0 Yes 25mg Take 1 [facility] 25 mg 9-19 tablet by [facility] tablet 00:00: mouth [place] 00 every 6 Medical (six) Branch hours as needed for Nausea and Vomiting (N/V). proMETHazin 2018-0 Yes 25mg Take 1 [facility] 25 mg 9-19 tablet by [facility] tablet 00:00: mouth [place] 00 every 6 Medical (six) Branch hours as needed for Nausea and Vomiting (N/V). proMETHazin 2018-0 Yes 25mg Take 1 [facility] 25 mg 9-19 tablet by [facility] tablet 00:00: mouth [place] 00 every 6 Medical (six) Branch hours as needed for Nausea and Vomiting (N/V). proMETHazin 2018-0 Yes 25mg Take 1 [facility] 25 mg 9-19 tablet by [facility] tablet 00:00: mouth [place] 00 every 6 Medical (six) Branch hours as needed for Nausea and Vomiting (N/V). proMETHazin 2018-0 Yes 25mg Take 1 [facility] 25 mg 9-19 tablet by [facility] tablet 00:00: mouth [place] 00 every 6 Medical (six) Branch hours as needed for Nausea and Vomiting (N/V). proMETHazin 2018-0 Yes 25mg Take 1 [facility] 25 mg 9-19 tablet by [facility] tablet 00:00: mouth [place] 00 every 6 Medical (six) Branch hours as needed for Nausea and Vomiting (N/V). proMETHazin 2018-0 Yes 25mg Take 1 [facility] 25 mg 9-19 tablet by [facility] tablet 00:00: mouth [place] 00 every 6 Medical (six) Branch hours as needed for Nausea and Vomiting (N/V). proMETHazin 2018-0 Yes 25mg Take 1 [facility] 25 mg 9-19 tablet by [facility] tablet 00:00: mouth [place] 00 every 6 Medical (six) Branch hours as needed for Nausea and Vomiting (N/V). proMETHazin 2018-0 Yes 25mg Take 1 [facility] 25 mg 9-19 tablet by [facility] tablet 00:00: mouth [place] 00 every 6 Medical (six) Branch hours as needed for Nausea and Vomiting (N/V). proMETHazin 2018-0 Yes 25mg Take 1 [facility] 25 mg 9-19 tablet by [facility] tablet 00:00: mouth [place] 00 every 6 Medical (six) Branch hours as needed for Nausea and Vomiting (N/V). proMETHazin 2018-0 Yes 25mg Take 1 [facility] 25 mg 9-19 tablet by [facility] tablet 00:00: mouth [place] 00 every 6 Medical (six) Branch hours as needed for Nausea and Vomiting (N/V). proMETHazin 2018-0 Yes 25mg Take 1 [facility] 25 mg 9-19 tablet by [facility] tablet 00:00: mouth [place] 00 every 6 Medical (six) Branch hours as needed for Nausea and Vomiting (N/V). proMETHazin 2018-0 Yes 25mg Take 1 [facility] 25 mg 9-19 tablet by [facility] tablet 00:00: mouth [place] 00 every 6 Medical (six) Branch hours as needed for Nausea and Vomiting (N/V). proMETHazin 2018-0 Yes 25mg Take 1 [facility] 25 mg 9-19 tablet by [facility] tablet 00:00: mouth [place] 00 every 6 Medical (six) Branch hours as needed for Nausea and Vomiting (N/V). proMETHazin 2018-0 Yes 25mg Take 1 [facility] 25 mg 9-19 tablet by [facility] tablet 00:00: mouth [place] 00 every 6 Medical (six) Branch hours as needed for Nausea and Vomiting (N/V). proMETHazin 2018-0 Yes 25mg Take 1 [facility] 25 mg 9-19 tablet by [facility] tablet 00:00: mouth [place] 00 every 6 Medical (six) Branch hours as needed for Nausea and Vomiting (N/V). proMETHazin 2018-0 Yes 25mg Take 1 [facility] 25 mg 9-19 tablet by [facility] tablet 00:00: mouth [place] 00 every 6 Medical (six) Branch hours as needed for Nausea and Vomiting (N/V). proMETHazin 2017- Yes 25mg Take 1 [facility] 25 mg 9-19 tablet by [facility] tablet 00:00: mouth [place] 00 every 6 Medical (six) Branch hours as needed for Nausea and Vomiting (N/V). proMETHazin 2017-2020- No 25mg Take 1 [facility] 25 mg 9-19 03-16 tablet by [facility] tablet 00:00: 00:00 mouth [place] 00 :00 every 6 Medical (six) Branch hours as needed for Nausea and Vomiting (N/V). acetaminoph 2017-2019- No 1{tbl} Take 1 [facility] en-codeine 9-19 05-05 tablet by [facility] 300-30 mg 00:00: 00:00 mouth [place] tablet 00 :00 every 6 Medical (six) Branch hours as needed (pain). acetaminoph 2017-2019- No 1{tbl} Take 1 [facility] en-codeine 9-19 05-05 tablet by [facility] 300-30 mg 00:00: 00:00 mouth [place] tablet 00 :00 every 6 Medical (six) Branch hours as needed (pain). ziprasidone 2016-0 Yes 60mg Take 60 mg [facility] (GEODON) 60 9-07 by mouth 2 [facility] of mg capsule 00:00: (two) [place] 00 times Medical daily with Branch meals. ziprasidone 2016-0 Yes 60mg Take 60 mg [facility] (GEODON) 60 9-07 by mouth 2 [facility] of mg capsule 00:00: (two) [place] 00 times Medical daily with Branch meals. ziprasidone 2016-0 Yes 60mg Take 60 mg [facility] (GEODON) 60 9-07 by mouth 2 [facility] of mg capsule 00:00: (two) [place] 00 times Medical daily with Branch meals. ziprasidone 2016-0 Yes 60mg Take 60 mg [facility] (GEODON) 60 9-07 by mouth 2 [facility] mg capsule 00:00: (two) [place] 00 times Medical daily with Branch meals. ziprasidone 2016-0 Yes 60mg Take 60 mg [facility] (GEODON) 60 9-07 by mouth 2 [facility] of mg capsule 00:00: (two) [place] 00 times Medical daily with Branch meals. ziprasidone 2016-0 Yes 60mg Take 60 mg [facility] (GEODON) 60 9-07 by mouth 2 [facility] of mg capsule 00:00: (two) [place] 00 times Medical daily with Branch meals. ziprasidone 2016-0 Yes 60mg Take 60 mg [facility] (GEODON) 60 9-07 by mouth 2 [facility] of mg capsule 00:00: (two) [place] 00 times Medical daily with Branch meals. ziprasidone 2016-0 Yes 60mg Take 60 mg [facility] (GEODON) 60 9-07 by mouth 2 [facility] of mg capsule 00:00: (two) [place] 00 times Medical daily with Branch meals. ziprasidone 2016-0 Yes 60mg Take 60 mg [facility] (GEODON) 60 9-07 by mouth 2 [facility] of mg capsule 00:00: (two) [place] 00 times Medical daily with Branch meals. ziprasidone 2016-0 Yes 60mg Take 60 mg [facility] (GEODON) 60 9-07 by mouth 2 [facility] y of mg capsule 00:00: (two) [place] 00 times Medical daily with Branch meals. ziprasidone 2016-0 Yes 60mg Take 60 mg [facility] (GEODON) 60 9-07 by mouth 2 [facility] of mg capsule 00:00: (two) [place] 00 times Medical daily with Branch meals. ziprasidone 2016-0 Yes 60mg Take 60 mg [facility] (GEODON) 60 9-07 by mouth 2 [facility] of mg capsule 00:00: (two) [place] 00 times Medical daily with Branch meals. ziprasidone 2016-0 Yes 60mg Take 60 mg [facility] (GEODON) 60 9-07 by mouth 2 [facility] of mg capsule 00:00: (two) [place] 00 times Medical daily with Branch meals. ziprasidone 2016-0 Yes 60mg Take 60 mg [facility] (GEODON) 60 9-07 by mouth 2 [facility] of mg capsule 00:00: (two) [place] 00 times Medical daily with Branch meals. ziprasidone 2016-0 Yes 60mg Take 60 mg [facility] (GEODON) 60 9-07 by mouth 2 [facility] of mg capsule 00:00: (two) [place] 00 times Medical daily with Branch meals. ziprasidone 2016-0 Yes 60mg Take 60 mg [facility] (GEODON) 60 9-07 by mouth 2 [facility] of mg capsule 00:00: (two) [place] 00 times Medical daily with Branch meals. ziprasidone 2016-0 Yes 60mg Take 60 mg [facility] (GEODON) 60 9-07 by mouth 2 [facility] of mg capsule 00:00: (two) [place] 00 times Medical daily with Branch meals. ziprasidone 2016-0 Yes 60mg Take 60 mg [facility] (GEODON) 60 9-07 by mouth 2 [facility] of mg capsule 00:00: (two) [place] 00 times Medical daily with Branch meals. ziprasidone 2016-0 Yes 60mg Take 60 mg [facility] (GEODON) 60 9-07 by mouth 2 [facility] of mg capsule 00:00: (two) [place] 00 times Medical daily with Branch meals. ziprasidone 2016-0 Yes 60mg Take 60 mg [facility] (GEODON) 60 9-07 by mouth 2 [facility] y of mg capsule 00:00: (two) [place] 00 times Medical daily with Branch meals. ziprasidone 2016-0 Yes 60mg Take 60 mg [facility] (GEODON) 60 9-07 by mouth 2 [facility] of mg capsule 00:00: (two) [place] 00 times Medical daily with Branch meals. ziprasidone 2016-0 Yes 60mg Take 60 mg [facility] (GEODON) 60 9-07 by mouth 2 [facility] of mg capsule 00:00: (two) [place] 00 times Medical daily with Branch meals. ziprasidone 2016-0 Yes 60mg Take 60 mg [facility] (GEODON) 60 9-07 by mouth 2 [facility] y of mg capsule 00:00: (two) [place] 00 times Medical daily with Branch meals. ziprasidone 2016-0 Yes 60mg Take 60 mg [facility] (GEODON) 60 9-07 by mouth 2 [facility] y of mg capsule 00:00: (two) [place] 00 times Medical daily with Branch meals. ziprasidone 2016-0 Yes 60mg Take 60 mg [facility] (GEODON) 60 9-07 by mouth 2 [facility] y of mg capsule 00:00: (two) [place] 00 times Medical daily with Branch meals. ziprasidone 2016-0 Yes 60mg Take 60 mg [facility] (GEODON) 60 9-07 by mouth 2 [facility] y of mg capsule 00:00: (two) [place] 00 times Medical daily with Branch meals. ziprasidone 2016-0 Yes 60mg Take 60 mg [facility] (GEODON) 60 9-07 by mouth 2 [facility] y of mg capsule 00:00: (two) [place] 00 times Medical daily with Branch meals. ziprasidone 2016-0 Yes 60mg Take 60 mg [facility] (GEODON) 60 9-07 by mouth 2 [facility] y of mg capsule 00:00: (two) [place] 00 times Medical daily with Branch meals. ziprasidone 2016-0 Yes 60mg Take 60 mg [facility] (GEODON) 60 9-07 by mouth 2 [facility] y of mg capsule 00:00: (two) [place] 00 times Medical daily with Branch meals. ziprasidone 2016-0 Yes 60mg Take 60 mg [facility] (GEODON) 60 9-07 by mouth 2 [facility] y of mg capsule 00:00: (two) [place] 00 times Medical daily with Branch meals. ziprasidone 2016-0 Yes 60mg Take 60 mg [facility] (GEODON) 60 9-07 by mouth 2 [facility] y of mg capsule 00:00: (two) [place] 00 times Medical daily with Branch meals. ziprasidone 2016-0 Yes 60mg Take 60 mg [facility] (GEODON) 60 9-07 by mouth 2 [facility] y of mg capsule 00:00: (two) [place] 00 times Medical daily with Branch meals. ziprasidone 2016-0 Yes 60mg Take 60 mg [facility] (GEODON) 60 9-07 by mouth 2 [facility] y of mg capsule 00:00: (two) [place] 00 times Medical daily with Branch meals. ziprasidone 2016-0 Yes 60mg Take 60 mg [facility] (GEODON) 60 9-07 by mouth 2 [facility] y of mg capsule 00:00: (two) [place] 00 times Medical daily with Branch meals. ziprasidone 2016-0 Yes 60mg Take 60 mg [facility] (GEODON) 60 9-07 by mouth 2 [facility] y of mg capsule 00:00: (two) [place] 00 times Medical daily with Branch meals. ziprasidone 2016-0 Yes 60mg Take 60 mg [facility] (GEODON) 60 9-07 by mouth 2 [facility] y of mg capsule 00:00: (two) [place] 00 times Medical daily with Branch meals. ziprasidone 2016-0 Yes 60mg Take 60 mg [facility] (GEODON) 60 9-07 by mouth 2 [facility] y of mg capsule 00:00: (two) [place] 00 times Medical daily with Branch meals. ziprasidone 2016-0 Yes 60mg Take 60 mg [facility] (GEODON) 60 9-07 by mouth 2 it y of mg capsule 00:00: (two) [place] 00 times Medical daily with Branch meals. ziprasidone 2016-0 Yes 60mg Take 60 mg [facility] (GE[facility]) 60 9-07 by mouth 2 [facility] y of mg capsule 00:00: (two) [place] 00 times Medical daily with Branch meals. ziprasidone 2016-0 Yes 60mg Take 60 mg [facility] (GEODON) 60 9-07 by mouth 2 it y of mg capsule 00:00: (two) [place] 00 times Medical daily with Branch meals. ziprasidone 2016-0 Yes 60mg Take 60 mg [facility] (GE[facility]) 60 9-07 by mouth 2 it y of mg capsule 00:00: (two) [place] 00 times Medical daily with Branch meals. ziprasidone 2016-0 Yes 60mg Take 60 mg [facility] (GEODON) 60 9-07 by mouth 2 [facility] y of mg capsule 00:00: (two) [place] 00 times Medical daily with Branch meals. ziprasidone 2016-0 Yes 60mg Take 60 mg [facility] (GE[facility]) 60 9-07 by mouth 2 [facility] y of mg capsule 00:00: (two) [place] 00 times Medical daily with Branch meals. ziprasidone 2016-0 Yes 60mg Take 60 mg [facility] (GE[facility]ON) 60 9-07 by mouth 2 [facility] y of mg capsule 00:00: (two) [place] 00 times Medical daily with Branch meals. ziprasidone 2016-0 Yes 60mg Take 60 mg [facility] (GE[facility]) 60 9-07 by mouth 2 [facility] y of mg capsule 00:00: (two) [place] 00 times Medical daily with Branch meals. ziprasidone 2016-0 Yes 60mg Take 60 mg [facility] ([facility]) 60 9-07 by mouth 2 [facility] y of mg capsule 00:00: (two) [place] 00 times Medical daily with Branch meals. ziprasidone 2016-0 Yes 60mg Take 60 mg [facility] (GE[facility]) 60 9-07 by mouth 2 [facility] y of mg capsule 00:00: (two) [place] 00 times Medical daily with Branch meals. ziprasidone 2016-0 Yes 60mg Take 60 mg [facility] (GE[facility]) 60 9-07 by mouth 2 it y of mg capsule 00:00: (two) [place] 00 times Medical daily with Branch meals. ziprasidone 2016-0 Yes 60mg Take 60 mg [facility] (GE[facility]) 60 9-07 by mouth 2 [facility] y of mg capsule 00:00: (two) [place] 00 times Medical daily with Branch meals. ziprasidone 2016-0 Yes 60mg Take 60 mg [facility] (GE[facility]) 60 9-07 by mouth 2 [facility] y of mg capsule 00:00: (two) [place] 00 times Medical daily with Branch meals. ziprasidone 2016-0 Yes 60mg Take 60 mg [facility] (GE[facility]) 60 9-07 by mouth 2 [facility] y of mg capsule 00:00: (two) [place] 00 times Medical daily with Branch meals. ziprasidone 2016-0 Yes 60mg Take 60 mg [facility] (GE[facility]) 60 9-07 by mouth 2 it y of mg capsule 00:00: (two) [place] 00 times Medical daily with Branch meals. ziprasidone 2016-0 Yes 60mg Take 60 mg [facility] (GE[facility]) 60 9-07 by mouth 2 it y of mg capsule 00:00: (two) [place] 00 times Medical daily with Branch meals. ziprasidone 2016-0 Yes 60mg Take 60 mg [facility] ([facility]) 60 9-07 by mouth 2 [facility] y of mg capsule 00:00: (two) [place] 00 times Medical daily with Branch meals. ziprasidone 2016-0 Yes 60mg Take 60 mg [facility] ([facility]) 60 9-07 by mouth 2 it y of mg capsule 00:00: (two) [place] 00 times Medical daily with Branch meals. ziprasidone 2016-0 Yes 60mg Take 60 mg [facility] ([facility]) 60 9-07 by mouth 2 it y of mg capsule 00:00: (two) [place] 00 times Medical daily with Branch meals. ziprasidone 2016-0 Yes 60mg Take 60 mg [facility] (GE[facility]ON) 60 9-07 by mouth 2 it y of mg capsule 00:00: (two) [place] 00 times Medical daily with Branch meals. ziprasidone 2016-0 Yes 60mg Take 60 mg [facility] (GE[facility]ON) 60 9-07 by mouth 2 it y of mg capsule 00:00: (two) [place] 00 times Medical daily with Branch meals. EPITOL 200 2016-0 Yes 200mg Take 200 [facility] mg tablet 8-31 mg by [facility] of 00:00: mouth 2 [place] (two) Medical times Branch daily. EPITOL 200 2016-0 Yes 200mg Take 200 [facility] mg tablet 8-31 mg by [facility] of 00:00: mouth 2 [place] (two) Medical times Branch daily. EPITOL 200 2016-0 Yes 200mg Take 200 [facility] mg tablet 8-31 mg by [facility] of 00:00: mouth 2 [place] [id number] (two) Medical times Branch daily. EPITOL 200 2016-0 Yes 200mg Take 200 [facility] mg tablet 8-31 mg by [facility] of 00:00: mouth (two) Medical times Branch daily. EPITOL 200 2015-0 Yes 200mg Take 200 [facility] mg tablet 8-31 mg by [facility] of 00:00: mouth (two) Medical times Branch daily. EPITOL 200 2015-0 Yes 200mg Take 200 [facility] mg tablet 8-31 mg by [facility] of 00:00: mouth (two) Medical times Branch daily. EPITOL 200 2015-0 Yes 200mg Take 200 [facility] mg tablet 8-31 mg by [facility] of 00:00: mouth (two) Medical times Branch daily. EPITOL 200 2015-0 Yes 200mg Take 200 [facility] mg tablet 8-31 mg by [facility] of 00:00: mouth (two) Medical times Branch daily. EPITOL 200 0 Yes 200mg Take 200 [facility] mg tablet 8-31 mg by [facility] of 00:00: mouth (two) Medical times Branch daily. EPITOL 200 0 Yes 200mg Take 200 [facility] mg tablet 8-31 mg by [facility] of 00:00: mouth (two) Medical times Branch daily. EPITOL 200 0 Yes 200mg Take 200 [facility] mg tablet 8-31 mg by [facility] of 00:00: mouth (two) Medical times Branch daily. EPITOL 200 0 Yes 200mg Take 200 [facility] mg tablet 8-31 mg by [facility] of 00:00: mouth (two) Medical times Branch daily. EPITOL 200 0 Yes 200mg Take 200 [facility] mg tablet 8-31 mg by [facility] of 00:00: mouth (two) Medical times Branch daily. EPITOL 200 2015-0 Yes 200mg Take 200 [facility] mg tablet 8-31 mg by [facility] of 00:00: mouth (two) Medical times Branch daily. EPITOL 200 2015-0 Yes 200mg Take 200 [facility] mg tablet 8-31 mg by [facility] of 00:00: mouth (two) Medical times Branch daily. EPITOL 200 2015-0 Yes 200mg Take 200 [facility] mg tablet 8-31 mg by [facility] of 00:00: mouth (two) Medical times Branch daily. EPITOL 200 2015-0 Yes 200mg Take 200 [facility] mg tablet 8-31 mg by [facility] of 00:00: mouth (two) Medical times Branch daily. EPITOL 200 2015-0 Yes 200mg Take 200 [facility] mg tablet 8-31 mg by [facility] of 00:00: mouth (two) Medical times Branch daily. EPITOL 200 2015-0 Yes 200mg Take 200 [facility] mg tablet 8-31 mg by [facility] of 00:00: mouth (two) Medical times Branch daily. EPITOL 200 2015-0 Yes 200mg Take 200 [facility] mg tablet 8-31 mg by [facility] of 00:00: mouth (two) Medical times Branch daily. EPITOL 200 2015-0 Yes 200mg Take 200 [facility] mg tablet 8-31 mg by [facility] of 00:00: mouth (two) Medical times Branch daily. EPITOL 200 0 Yes 200mg Take 200 [facility] mg tablet 8-31 mg by [facility] of 00:00: mouth (two) Medical times Branch daily. EPITOL 200 0 Yes 200mg Take 200 [facility] mg tablet 8-31 mg by [facility] of 00:00: mouth (two) Medical times Branch daily. EPITOL 200 0 Yes 200mg Take 200 [facility] mg tablet 8-31 mg by [facility] of 00:00: mouth (two) Medical times Branch daily. EPITOL 200 0 Yes 200mg Take 200 [facility] mg tablet 8-31 mg by [facility] of 00:00: mouth (two) Medical times Branch daily. EPITOL 200 0 Yes 200mg Take 200 [facility] mg tablet 8-31 mg by [facility] of 00:00: mouth (two) Medical times Branch daily. EPITOL 200 2015-0 Yes 200mg Take 200 [facility] mg tablet 8-31 mg by [facility] of 00:00: mouth (two) Medical times Branch daily. EPITOL 200 2015-0 Yes 200mg Take 200 [facility] mg tablet 8-31 mg by [facility] of 00:00: mouth (two) Medical times Branch daily. EPITOL 200 2015-0 Yes 200mg Take 200 [facility] mg tablet 8-31 mg by [facility] of 00:00: mouth 2 (two) Medical times Branch daily. EPITOL 200 2015-0 Yes 200mg Take 200 [facility] mg tablet 8-31 mg by [facility] of 00:00: mouth 2 (two) Medical times Branch daily. EPITOL 200 0 Yes 200mg Take 200 [facility] mg tablet 8-31 mg by [facility] of 00:00: mouth 2 (two) Medical times Branch daily. EPITOL 200 0 Yes 200mg Take 200 [facility] mg tablet 8-31 mg by [facility] of 00:00: mouth 2 (two) Medical times Branch daily. EPITOL 200 0 Yes 200mg Take 200 [facility] mg tablet 8-31 mg by [facility] of 00:00: mouth (two) Medical times Branch daily. EPITOL 200 Yes 200mg Take 200 [facility] mg tablet 8-31 mg by [facility] of 00:00: mouth (two) Medical times Branch daily. EPITOL 200 0 Yes 200mg Take 200 [facility] mg tablet 8-31 mg by [facility] of 00:00: mouth (two) Medical times Branch daily. EPITOL 200 0 2021- No 200mg Take 200 [facility] mg tablet 8-31 03-16 mg by [facility] of 00:00: 00:00 mouth 2 [place] 00 :00 (two) Medical times Branch daily. buPROPion 2015-0 Yes 100mg Take 100 [facility] vers SR 8-29 mg by [facility] of (WELLBUTRIN 00:00: mouth [place] SR) 100 mg 00 daily. Medical SR tablet Branch buPROPion 2015-0 Yes 15mg Take 15 mg [facility] SR 8-29 by mouth 4 [facility] (WELLBUTRIN 00:00: (four[place] 100 mg 00 times [facility] SR tablet daily as Branch needed for Other (anxiety). buPROPion 2016-0 Yes 15mg Take 15 mg [facility] SR 8-29 by mouth 4 [facility] (WELLBUTRIN 00:00: (four) [place] [facility] 100 mg 00 times [facility] SR tablet daily as Branch needed for Other (anxiety). buPROPion 2015-0 Yes 15mg Take 15 mg [facility] SR 8-29 by mouth 4 [facility] (WELLBUTRIN 00:00: (four[place] [facility] 100 [place] 00 times [facility] SR tablet daily as Branch needed for Other (anxiety). buPROPion 2016-0 Yes 15mg Take 15 mg [facility] SR 8-29 by mouth 4 [facility] (WELLBUTRIN 00:00: (four) [place] SR) 100 mg 00 times [facility] SR tablet daily as Branch needed for Other (anxiety). buPROPion 2016-0 Yes 15mg Take 15 mg [facility] SR 8-29 by mouth 4 [facility] of (WELLBUTRIN 00:00: (four) [place] SR[place] 100 mg 00 times [facility] SR tablet daily as Branch needed for Other (anxiety). buPROPion 2016-0 Yes 15mg Take 15 mg [facility] SR 8-29 by mouth 4 [facility] of (WELLBUTRIN 00:00: (four) [place] SR) 100 mg 00 times [facility] SR tablet daily as Branch needed for Other (anxiety). buPROPion 2016-0 Yes 15mg Take 15 mg [facility] SR 8-29 by mouth 4 [facility] of (WELLBUTRIN 00:00: (four) [place] SR) 100 mg 00 times [facility] SR tablet daily as Branch needed for Other (anxiety). buPROPion 2016-0 Yes 15mg Take 15 mg [facility] SR 8-29 by mouth 4 [facility] of (WELLBUTRIN 00:00: (four) [place] SR) 100 mg 00 times [facility] SR tablet daily as Branch needed for Other (anxiety). buPROPion 2016-0 Yes 15mg Take 15 mg [facility] SR 8-29 by mouth 4 [facility] of (WELLBUTRIN 00:00: (four) [place] SR) 100 mg 00 times [facility] SR tablet daily as Branch needed for Other (anxiety). buPROPion 2016-0 Yes 100mg Take 100 [facility] SR 8-29 mg by ity of (WELLBUTRIN 00:00: mouth [place] SR) 100 mg 00 daily. Medical SR tablet Branch buPROPion 2016-0 Yes 100mg Take 100 [facility] SR 8-29 mg by ity of (WELLBUTRIN 00:00: mouth [place] SR) 100 mg 00 daily. Medical SR tablet Branch buPROPion 2016-0 Yes 100mg Take 100 [facility] SR 8-29 mg by ity of (WELLBUTRIN 00:00: mouth [place] SR) 100 mg 00 daily. Medical SR tablet Branch buPROPion 0 Yes 100mg Take 100 [facility] SR 8-29 mg by ity of (WELLBUTRIN 00:00: mouth [place] SR) 100 mg 00 daily. Medical SR tablet Branch buPROPion 0 Yes 100mg Take 100 [facility] SR 8-29 mg by ity of (WELLBUTRIN 00:00: mouth [place] SR) 100 mg 00 daily. Medical SR tablet Branch buPROPion 0 Yes 100mg Take 100 [facility] SR 8-29 mg by ity of (WELLBUTRIN 00:00: mouth [place] SR) 100 mg 00 daily. Medical SR tablet Branch buPROPion 0 Yes 100mg Take 100 [facility] SR 8-29 mg by ity of (WELLBUTRIN 00:00: mouth [place] SR) 100 mg 00 daily. Medical SR tablet Branch buPROPion 0 Yes 100mg Take 100 [facility] SR 8-29 mg by ity of (WELLBUTRIN 00:00: mouth [place] SR) 100 mg 00 daily. Medical SR tablet Branch buPROPion 0 Yes 100mg Take 100 [facility] SR 8-29 mg by ity of (WELLBUTRIN 00:00: mouth [place] SR) 100 mg 00 daily. Medical SR tablet Branch buPROPion 0 Yes 100mg Take 100 [facility] SR 8-29 mg by ity of (WELLBUTRIN 00:00: mouth [place] SR) 100 mg 00 daily. Medical SR tablet Branch buPROPion 0 Yes 100mg Take 100 [facility] SR 8-29 mg by ity of (WELLBUTRIN 00:00: mouth [place] SR) 100 mg 00 daily. Medical SR tablet Branch buPROPion 0 Yes 100mg Take 100 [facility] SR 8-29 mg by ity of (WELLBUTRIN 00:00: mouth [place] SR) 100 mg 00 daily. Medical SR tablet Branch buPROPion 0 Yes 100mg Take 100 [facility] SR 8-29 mg by ity of (WELLBUTRIN 00:00: mouth [place] SR) 100 mg 00 daily. Medical SR tablet Branch buPROPion 0 Yes 100mg Take 100 [facility] SR 8-29 mg by ity of (WELLBUTRIN 00:00: mouth [place] SR) 100 mg 00 daily. Medical SR tablet Branch buPROPion 0 Yes 100mg Take 100 [facility] SR 8-29 mg by ity of (WELLBUTRIN 00:00: mouth [place] SR) 100 mg 00 daily. Medical SR tablet Branch buPROPion 0 Yes 100mg Take 100 [facility] SR 8-29 mg by ity of (WELLBUTRIN 00:00: mouth [place] SR) 100 mg 00 daily. Medical SR tablet Branch buPROPion 0 Yes 100mg Take 100 [facility] SR 8-29 mg by ity of (WELLBUTRIN 00:00: mouth [place] SR) 100 mg 00 daily. Medical SR tablet Branch buPROPion 0 Yes 100mg Take 100 [facility] SR 8-29 mg by ity of (WELLBUTRIN 00:00: mouth [place] SR) 100 mg 00 daily. Medical SR tablet Branch buPROPion 0 Yes 100mg Take 100 [facility] SR 8-29 mg by ity of (WELLBUTRIN 00:00: mouth [place] SR) 100 mg 00 daily. Medical SR tablet Branch buPROPion Yes 100mg Take 100 [facility] SR 8-29 mg by ity of (WELLBUTRIN 00:00: mouth [place] SR) 100 mg 00 daily. Medical SR tablet Branch buPROPion 0 Yes 100mg Take 100 [facility] SR 8-29 mg by ity of (WELLBUTRIN 00:00: mouth [place] SR) 100 mg 00 daily. Medical SR tablet Branch buPROPion 0 Yes 100mg Take 100 [facility] SR 8-29 mg by ity of (WELLBUTRIN 00:00: mouth [place] SR) 100 mg 00 daily. Medical SR tablet Branch buPROPion Yes 100mg Take 100 [facility] SR 8-29 mg by ity of (WELLBUTRIN 00:00: mouth [place] SR) 100 mg 00 daily. Medical SR tablet Branch buPROPion 0 Yes 100mg Take 100 [facility] SR 8-29 mg by ity of (WELLBUTRIN 00:00: mouth [place] SR) 100 mg 00 daily. Medical SR tablet Branch buPROPion 0 Yes 100mg Take 100 [facility] SR 8-29 mg by ity of (WELLBUTRIN 00:00: mouth [place] SR) 100 mg 00 daily. Medical SR tablet Branch buPROPion 1- No 15mg Take 15 mg [facility] SR 8-29 03-16 by mouth 4 ity of (WELLBUTRIN 00:00: 00:00 (four) [place] as SR) 100 mg 00 :00 times Medical SR tablet daily as Branch needed for Other (anxiety). omeprazole 2015-0 Yes 40mg Take 40 mg U nivers (PRILOSEC) 8-25 by mouth ity o f 40 mg 00:00: daily. [place] [facility] omeprazole 0 Yes 40mg Take 40 mg U nivers (PRILOSEC) 8-25 by mouth ity o f 40 mg 00:00: daily. [place] [facility] omeprazole 0 Yes 40mg Take 40 mg U nivers (PRILOSEC) 8-25 by mouth ity o f 40 mg 00:00: daily. [place] [facility] omeprazole 0 Yes 40mg Take 40 mg U nivers (PRILOSEC) 8-25 by mouth ity o f 40 mg 00:00: daily. [place] [facility] omeprazole 0 Yes 40mg Take 40 mg U nivers (PRILOSEC) 8-25 by mouth ity o f 40 mg 00:00: daily. [place] [facility] omeprazole 0 Yes 40mg Take 40 mg U nivers (PRILOSEC) 8-25 by mouth ity o f 40 mg 00:00: daily. [place] [facility] omeprazole 0 Yes 40mg Take 40 mg U nivers (PRILOSEC) 8-25 by mouth ity o f 40 mg 00:00: daily. [place] [facility] omeprazole 0 Yes 40mg Take 40 mg U nivers (PRILOSEC) 8-25 by mouth ity o f 40 mg 00:00: daily. [place] [facility] omeprazole [id number] Yes 40mg Take 40 mg U nivers (PRILOSEC) 8-25 by mouth ity o f 40 mg 00:00: daily. [place] [facility] omeprazole 2016-0 Yes 40mg Take 40 mg U nivers (PRILOSEC) 8-25 by mouth ity o f 40 mg 00:00: daily. [place] [facility] omeprazole 2016-0 Yes 40mg Take 40 mg U nivers (PRILOSEC) 8-25 by mouth ity o f 40 mg 00:00: daily. [place] [facility] omeprazole 2016-0 Yes 40mg Take 40 mg U nivers (PRILOSEC) 8-25 by mouth ity o f 40 mg 00:00: daily. [place] [facility] omeprazole 2016-0 Yes 40mg Take 40 mg U nivers (PRILOSEC) 8-25 by mouth ity o f 40 mg 00:00: daily. [place] [facility] [place] omeprazole 2016-0 Yes 40mg Take 40 mg U nivers (PRILOSEC) 8-25 by mouth ity o f 40 mg 00:00: daily. [place] [facility] [place] omeprazole [id number] Yes 40mg Take 40 mg U nivers (PRILOSEC) 8-25 by mouth ity o f 40 mg 00:00: daily. [place] [facility] [place] omeprazole 0 Yes 40mg Take 40 mg U nivers (PRILOSEC) 8-25 by mouth ity o f 40 mg 00:00: daily. [place] [facility] omeprazole 0 Yes 40mg Take 40 mg U nivers (PRILOSEC) 8-25 by mouth ity o f 40 mg 00:00: daily. [place] [facility] omeprazole 0 Yes 40mg Take 40 mg U nivers (PRILOSEC) 8-25 by mouth ity o f 40 mg 00:00: daily. [place] [facility] [place] omeprazole [id number] Yes 40mg Take 40 mg U nivers (PRILOSEC) 8-25 by mouth ity o f 40 mg 00:00: daily. [place] [facility] omeprazole [id number] Yes 40mg Take 40 mg U nivers (PRILOSEC) 8-25 by mouth ity o f 40 mg 00:00: daily. [place] [facility] [place] omeprazole [id number] Yes 40mg Take 40 mg U nivers (PRILOSEC) 8-25 by mouth ity o f 40 mg 00:00: daily. [place] [facility] omeprazole 2016-0 Yes 40mg Take 40 mg U nivers (PRILOSEC) 8-25 by mouth ity o f 40 mg 00:00: daily. [place] [facility] omeprazole 2016-0 Yes 40mg Take 40 mg U nivers (PRILOSEC) 8-25 by mouth ity o f 40 mg 00:00: daily. [place] [facility] omeprazole 2016-0 Yes 40mg Take 40 mg U nivers (PRILOSEC) 8-25 by mouth ity o f 40 mg 00:00: daily. [place] [facility] omeprazole 2016-0 Yes 40mg Take 40 mg U nivers (PRILOSEC) 8-25 by mouth ity o f 40 mg 00:00: daily. [place] [facility] [place] omeprazole 2016-0 Yes 40mg Take 40 mg U nivers (PRILOSEC) 8-25 by mouth ity o f 40 mg 00:00: daily. [place] [facility] omeprazole 2016-0 Yes 40mg Take 40 mg U nivers (PRILOSEC) 8-25 by mouth ity o f 40 mg 00:00: daily. [place] [facility] omeprazole [id number] Yes 40mg Take 40 mg U nivers (PRILOSEC) 8-25 by mouth ity o f 40 mg 00:00: daily. [place] [facility] omeprazole [id number] Yes 40mg Take 40 mg U nivers (PRILOSEC) 8-25 by mouth ity o f 40 mg 00:00: daily. [place] [facility] omeprazole [id number] Yes 40mg Take 40 mg U nivers (PRILOSEC) 8-25 by mouth ity o f 40 mg 00:00: daily. [place] [facility] omeprazole [id number] Yes 40mg Take 40 mg U nivers (PRILOSEC) 8-25 by mouth ity o f 40 mg 00:00: daily. [place] [facility] omeprazole 2016-0 Yes 40mg Take 40 mg U nivers (PRILOSEC) 8-25 by mouth ity o f 40 mg 00:00: daily. [place] [facility] omeprazole 2016-0 Yes 40mg Take 40 mg U nivers (PRILOSEC) 8-25 by mouth ity o f 40 mg 00:00: daily. [place] [facility] omeprazole 2016-0 Yes 40mg Take 40 mg U nivers (PRILOSEC) 8-25 by mouth ity o f 40 mg 00:00: daily. [place] [facility] omeprazole 2016-0 Yes 40mg Take 40 mg U nivers (PRILOSEC) 8-25 by mouth ity o f 40 mg 00:00: daily. [place] [facility] omeprazole 2016-0 40mg Take 40 mg Univers (PRILOSEC) 05-03 03-16 by mouth ity of 40 mg 00:00: 00:00 daily. [place] [facility] 00 :00 [facility] Branch Immunizations Ordered Filled Immunization Date Status Comments Sour e Immunization Name Name SARS-COV-2 COVID-19 2021-05-24 Completed Unive rsity of MODERNA VACCINE 00:00:00 [place] [facility] ical Branch SARS-COV-2 COVID-19 2021-05-24 Completed Unive rsity of MODERNA VACCINE 00:00:00 [facility] SARS-COV-2 COVID-19 2021-05-24 Completed Unive rsity of MODERNA VACCINE 00:00:00 [facility] SARS-COV-2 COVID-19 2021-05-24 Completed Unive rsity of MODERNA VACCINE 00:00:00 [facility] SARS-COV-2 COVID-19 2021-05-24 Completed Unive rsity of MODERNA VACCINE 00:00:00 [facility] SARS-COV-2 COVID-19 2020-10-18 Completed Unive rsity of MODERNA VACCINE 00:00:00 [facility] SARS-COV-2 COVID-19 2020-10-18 Completed Unive rsity of MODERNA VACCINE 00:00:00 [facility] SARS-COV-2 COVID-19 2020-10-18 Completed Unive rsity of MODERNA VACCINE 00:00:00 [facility] SARS-COV-2 COVID-19 2020-10-18 Completed Unive rsity of MODERNA VACCINE 00:00:00 [facility] SARS-COV-2 COVID-19 2020-10-18 Completed Unive rsity of MODERNA VACCINE 00:00:00 [facility] SARS-COV-2 COVID-19 2020-10-18 Completed Unive rsity of MODERNA VACCINE 00:00:00 [facility] SARS-COV-2 COVID-19 2020-10-18 Completed Unive rsity of MODERNA VACCINE 00:00:00 [facility] SARS-COV-2 COVID-19 2020-10-18 Completed Unive rsity of MODERNA VACCINE 00:00:00 [facility] SARS-COV-2 COVID-19 2020-10-18 Completed Unive rsity of MODERNA VACCINE 00:00:00 [place] [facility] SARS-COV-2 COVID-19 2020-10-18 Completed Unive rsity of MODERNA VACCINE 00:00:00 [place] [facility] SARS-COV-2 COVID-19 2020-10-18 Completed Unive rsity of MODERNA VACCINE 00:00:00 [place] [facility] SARS-COV-2 COVID-19 2020-10-18 Completed Unive rsity of MODERNA VACCINE 00:00:00 [place] [facility] SARS-COV-2 COVID-19 2020-10-18 Completed Unive rsity of MODERNA VACCINE 00:00:00 [place] [facility] SARS-COV-2 COVID-19 2020-10-18 Completed Unive rsity of MODERNA VACCINE 00:00:00 [place] [facility] SARS-COV-2 COVID-19 2020-10-18 Completed Unive rsity of MODERNA VACCINE 00:00:00 [place] [facility] SARS-COV-2 COVID-19 2020-10-18 Completed Unive rsity of MODERNA VACCINE 00:00:00 [place] [facility] SARS-COV-2 COVID-19 2020-10-18 Completed Unive rsity of MODERNA VACCINE 00:00:00 [place] [facility] SARS-COV-2 COVID-19 2020-10-18 Completed Unive rsity of MODERNA VACCINE 00:00:00 [place] [facility] SARS-COV-2 COVID-19 2020-10-18 Completed Unive rsity of MODERNA VACCINE 00:00:00 [place] [facility] SARS-COV-2 COVID-19 2020-10-18 Completed Unive rsity of MODERNA VACCINE 00:00:00 [place] [facility] SARS-COV-2 COVID-19 2020-10-18 Completed Unive rsity of MODERNA VACCINE 00:00:00 [place] [facility] SARS-COV-2 COVID-19 2020-10-18 Completed Unive rsity of MODERNA VACCINE 00:00:00 [place] [facility] SARS-COV-2 COVID-19 2020-10-18 Completed Unive rsity of MODERNA VACCINE 00:00:00 [place] [facility] SARS-COV-2 COVID-19 2020-10-18 Completed Unive rsity of MODERNA VACCINE 00:00:00 [place] [facility] SARS-COV-2 COVID-19 2020-10-18 Completed Unive rsity of MODERNA VACCINE 00:00:00 [place] [facility] SARS-COV-2 COVID-19 2020-10-18 Completed Unive rsity of MODERNA VACCINE 00:00:00 [place] [facility] SARS-COV-2 COVID-19 2020-10-18 Completed Unive rsity of MODERNA VACCINE 00:00:00 [place] [facility] SARS-COV-2 COVID-19 2020-10-18 Completed Unive rsity of MODERNA VACCINE 00:00:00 [place] [facility] SARS-COV-2 COVID-19 2020-10-18 Completed Unive rsity of MODERNA VACCINE 00:00:00 [place] [facility] SARS-COV-2 COVID-19 2020-10-18 Completed Unive rsity of MODERNA VACCINE 00:00:00 [place] [facility] SARS-COV-2 COVID-19 2020-09-20 Completed Unive rsity of MODERNA VACCINE 00:00:00 [place] [facility] SARS-COV-2 COVID-19 2020-09-20 Completed Unive rsity of MODERNA VACCINE 00:00:00 [place] [facility] SARS-COV-2 COVID-19 2020-09-20 Completed Unive rsity of MODERNA VACCINE 00:00:00 [place] [facility] SARS-COV-2 COVID-19 2020-09-20 Completed Unive rsity of MODERNA VACCINE 00:00:00 [place] [facility] SARS-COV-2 COVID-19 2020-09-20 Completed Unive rsity of MODERNA VACCINE 00:00:00 [place] [facility] SARS-COV-2 COVID-19 2020-09-20 Completed Unive rsity of MODERNA VACCINE 00:00:00 [place] [facility] SARS-COV-2 COVID-19 2020-09-20 Completed Unive rsity of MODERNA VACCINE 00:00:00 [place] [facility] SARS-COV-2 COVID-19 2020-09-20 Completed Unive rsity of MODERNA VACCINE 00:00:00 [place] [facility] SARS-COV-2 COVID-19 2020-09-20 Completed Unive rsity of MODERNA VACCINE 00:00:00 [place] [facility] SARS-COV-2 COVID-19 2020-09-20 Completed Unive rsity of MODERNA VACCINE 00:00:00 [place] [facility] SARS-COV-2 COVID-19 2020-09-20 Completed Unive rsity of MODERNA VACCINE 00:00:00 [place] [facility] SARS-COV-2 COVID-19 2020-09-20 Completed Unive rsity of MODERNA VACCINE 00:00:00 [place] [facility] SARS-COV-2 COVID-19 2020-09-20 Completed Unive rsity of MODERNA VACCINE 00:00:00 [place] [facility] SARS-COV-2 COVID-19 2020-09-20 Completed Unive rsity of MODERNA VACCINE 00:00:00 [place] [facility] SARS-COV-2 COVID-19 2020-09-20 Completed Unive rsity of MODERNA VACCINE 00:00:00 [place] [facility] SARS-COV-2 COVID-19 2020-09-20 Completed Unive rsity of MODERNA VACCINE 00:00:00 [place] [facility] SARS-COV-2 COVID-19 2020-09-20 Completed Unive rsity of MODERNA VACCINE 00:00:00 [place] [facility] SARS-COV-2 COVID-19 2020-09-20 Completed Unive rsity of MODERNA VACCINE 00:00:00 [place] [facility] SARS-COV-2 COVID-19 2020-09-20 Completed Unive rsity of MODERNA VACCINE 00:00:00 [place] [facility] SARS-COV-2 COVID-19 2020-09-20 Completed Unive rsity of MODERNA VACCINE 00:00:00 [place] [facility] SARS-COV-2 COVID-19 2020-09-20 Completed Unive rsity of MODERNA VACCINE 00:00:00 [place] [facility] SARS-COV-2 COVID-19 2020-09-20 Completed Unive rsity of MODERNA VACCINE 00:00:00 [place] [facility] SARS-COV-2 COVID-19 2020-09-20 Completed Unive rsity of MODERNA VACCINE 00:00:00 [facility] SARS-COV-2 COVID-19 2020-09-20 Completed Unive rsity of MODERNA VACCINE 00:00:00 [facility] SARS-COV-2 COVID-19 2020-09-20 Completed Unive rsity of MODERNA VACCINE 00:00:00 [facility] SARS-COV-2 COVID-19 2020-09-20 Completed Unive rsity of MODERNA VACCINE 00:00:00 [facility] Branch SARS-COV-2 COVID-19 2020-09-20 Completed Unive rsity of MODERNA VACCINE 00:00:00 [facility] Branch SARS-COV-2 COVID-19 2020-09-20 Completed Unive rsity of MODERNA VACCINE 00:00:00 [facility] Branch SARS-COV-2 COVID-19 2020-09-20 Completed Unive rsity of MODERNA VACCINE 00:00:00 [facility] Branch SARS-COV-2 COVID-19 2020-09-20 Completed Unive rsity of MODERNA VACCINE 00:00:00 [facility] Branch SARS-COV-2 COVID-19 2020-09-20 Completed Unive rsity of MODERNA VACCINE 00:00:00 [facility] Branch SARS-COV-2 COVID-19 2020-09-20 Completed Unive rsity of MODERNA VACCINE 00:00:00 [facility] Branch SARS-COV-2 COVID-19 2020-09-20 Completed Unive rsity of MODERNA VACCINE 00:00:00 [facility] Branch Influenza Virus 2020-08-09 Completed Universit y of Vaccine Quad .5 mL 00:00:00 [facility] IM 6+ MO Branch TDAP 2020-08-09 Completed University of 00:00:00 [facility] Pneumococcal 2020-08-09 Completed University o f Polysaccharide, 00:00:00 [facility] PPSV23 (PNEUMOVAX) Branch Influenza Virus 2020-08-09 Completed Universit y of Vaccine Quad .5 mL 00:00:00 [facility] IM 6+ MO Branch TDAP 2020-08-09 Completed University of 00:00:00 [facility] Pneumococcal 2020-08-09 Completed University o f Polysaccharide, 00:00:00 [place] [facility] PPSV23 (PNEUMOVAX) Branch Influenza Virus 2020-08-09 Completed Universit y of Vaccine Quad .5 mL 00:00:00 [facility] 6+ MO [place] TDAP 2020-08-09 Completed University of 00:00:00 [facility] Pneumococcal 2020-08-09 Completed University o f Polysaccharide, 00:00:00 [place] [facility] PPSV23 (PNEUMOVAX) Branch Influenza Virus 2020-08-09 Completed Universit y of Vaccine Quad .5 mL 00:00:00 [facility] 6+ MO [place] TDAP 2020-08-09 Completed University of 00:00:00 [facility] Pneumococcal 2020-08-09 Completed University o f Polysaccharide, 00:00:00 [place] [facility] PPSV23 (PNEUMOVAX) Branch Influenza Virus 2020-08-09 Completed Universit y of Vaccine Quad .5 mL 00:00:00 [facility] 6+ MO [place] TDAP 2020-08-09 Completed University of 00:00:00 [facility] Pneumococcal 2020-08-09 Completed University o f Polysaccharide, 00:00:00 [place] [facility] PPSV23 (PNEUMOVAX) Branch Influenza Virus 2020-08-09 Completed Universit y of Vaccine Quad .5 mL 00:00:00 [facility] 6+ MO [place] TDAP 2020-08-09 Completed University of 00:00:00 [facility] Pneumococcal 2020-08-09 Completed University o f Polysaccharide, 00:00:00 [place] [facility] PPSV23 (PNEUMOVAX) Branch Influenza Virus 2020-08-09 Completed Universit y of Vaccine Quad .5 mL 00:00:00 [facility] 6+ MO [place] TDAP 2020-08-09 Completed University of 00:00:00 [facility] Pneumococcal 2020-08-09 Completed University o f Polysaccharide, 00:00:00 [place] [facility] PPSV23 (PNEUMOVAX) Branch Influenza Virus 2020-08-09 Completed Universit y of Vaccine Quad .5 mL 00:00:00 [facility] 6+ MO [place] TDAP 2020-08-09 Completed University of 00:00:00 [facility] Pneumococcal 2020-08-09 Completed University o f Polysaccharide, 00:00:00 [place] [facility] PPSV23 (PNEUMOVAX) Branch Influenza Virus 2020-08-09 Completed Universit y of Vaccine Quad .5 mL 00:00:00 [facility] IM 6+ MO Branch TDAP 2020-08-09 Completed University of 00:00:00 [facility] Pneumococcal 2020-08-09 Completed University o f Polysaccharide, 00:00:00 [place] [facility] PPSV23 (PNEUMOVAX) Branch Influenza Virus 2020-08-09 Completed Universit y of Vaccine Quad .5 mL 00:00:00 [facility] [place] [facility] 6+ MO Branch TDAP 2020-08-09 Completed University of 00:00:00 [facility] Pneumococcal 2020-08-09 Completed University o f Polysaccharide, 00:00:00 [place] [facility] PPSV23 (PNEUMOVAX) Branch Influenza Virus 2020-08-09 Completed Universit y of Vaccine Quad .5 mL 00:00:00 [facility] 6+ MO Branch TDAP 2020-08-09 Completed University of 00:00:00 [facility] Pneumococcal 2020-08-09 Completed University o f Polysaccharide, 00:00:00 [place] [facility] PPSV23 (PNEUMOVAX) Branch Influenza Virus 2020-08-09 Completed Universit y of Vaccine Quad .5 mL 00:00:00 [facility] 6+ MO Branch TDAP 2020-08-09 Completed University of 00:00:00 [facility] Pneumococcal 2020-08-09 Completed University o f Polysaccharide, 00:00:00 [place] [facility] PPSV23 (PNEUMOVAX) Branch Influenza Virus 2020-08-09 Completed Universit y of Vaccine Quad .5 mL 00:00:00 [facility] 6+ MO [place] TDAP 2020-08-09 Completed University of 00:00:00 [facility] Pneumococcal 2020-08-09 Completed University o f Polysaccharide, 00:00:00 [place] [facility] PPSV23 (PNEUMOVAX) Branch Influenza Virus 2020-08-09 Completed Universit y of Vaccine Quad .5 mL 00:00:00 [facility] 6+ MO Branch TDAP 2020-08-09 Completed University of 00:00:00 [facility] Pneumococcal 2020-08-09 Completed University o f Polysaccharide, 00:00:00 [place] [facility] PPSV23 (PNEUMOVAX) Branch Influenza Virus 2020-08-09 Completed Universit y of Vaccine Quad .5 mL 00:00:00 [facility] 6+ MO Branch TDAP 2020-08-09 Completed University of 00:00:00 [facility] Pneumococcal 2020-08-09 Completed University o f Polysaccharide, 00:00:00 [place] [facility] PPSV23 (PNEUMOVAX) Branch Influenza Virus 2020-08-09 Completed Universit y of Vaccine Quad .5 mL 00:00:00 [facility] 6+ MO Branch TDAP 2020-08-09 Completed University of 00:00:00 [facility] Pneumococcal 2020-08-09 Completed University o f Polysaccharide, 00:00:00 [place] [facility] PPSV23 (PNEUMOVAX) Branch Influenza Virus 2020-08-09 Completed Universit y of Vaccine Quad .5 mL 00:00:00 [facility] 6+ MO [place] TDAP 2020-08-09 Completed University of 00:00:00 [facility] Pneumococcal 2020-08-09 Completed University o f Polysaccharide, 00:00:00 [place] [facility] PPSV23 (PNEUMOVAX) Branch Influenza Virus 2020-08-09 Completed Universit y of Vaccine Quad .5 mL 00:00:00 [facility] 6+ MO [place] TDAP 2020-08-09 Completed University of 00:00:00 [facility] Pneumococcal 2020-08-09 Completed University o f Polysaccharide, 00:00:00 [place] [facility] PPSV23 (PNEUMOVAX) Branch Influenza Virus 2020-08-09 Completed Universit y of Vaccine Quad .5 mL 00:00:00 [facility] 6+ MO [place] TDAP 2020-08-09 Completed University of 00:00:00 [facility] Pneumococcal 2020-08-09 Completed University o f Polysaccharide, 00:00:00 [place] [facility] PPSV23 (PNEUMOVAX) Branch Influenza Virus 2020-08-09 Completed Universit y of Vaccine Quad .5 mL 00:00:00 [facility] 6+ MO [place] TDAP 2020-08-09 Completed University of 00:00:00 [facility] Pneumococcal 2020-08-09 Completed University o f Polysaccharide, 00:00:00 [place] [facility] PPSV23 (PNEUMOVAX) Branch Influenza Virus 2020-08-09 Completed Universit y of Vaccine Quad .5 mL 00:00:00 [facility] 6+ MO [place] TDAP 2020-08-09 Completed University of 00:00:00 [facility] Pneumococcal 2020-08-09 Completed University o f Polysaccharide, 00:00:00 [place] [facility] PPSV23 (PNEUMOVAX) Branch Influenza Virus 2020-08-09 Completed Universit y of Vaccine Quad .5 mL 00:00:00 [facility] IM 6+ MO Branch TDAP 2020-08-09 Completed University of 00:00:00 [facility] Pneumococcal 2020-08-09 Completed University o f Polysaccharide, 00:00:00 [place] [facility] PPSV23 (PNEUMOVAX) Branch Influenza Virus 2020-08-09 Completed Universit y of Vaccine Quad .5 mL 00:00:00 [facility] 6+ MO Branch TDAP 2020-08-09 Completed University of 00:00:00 [facility] Pneumococcal 2020-08-09 Completed University o f Polysaccharide, 00:00:00 [place] [facility] PPSV23 (PNEUMOVAX) Branch Influenza Virus 2020-08-09 Completed Universit y of Vaccine Quad .5 mL 00:00:00 [facility] 6+ MO Branch TDAP 2020-08-09 Completed University of 00:00:00 [facility] Pneumococcal 2020-08-09 Completed University o f Polysaccharide, 00:00:00 [place] [facility] PPSV23 (PNEUMOVAX) Branch Influenza Virus 2020-08-09 Completed Universit y of Vaccine Quad .5 mL 00:00:00 [facility] 6+ MO Branch TDAP 2020-08-09 Completed University of 00:00:00 [facility] Pneumococcal 2020-08-09 Completed University o f Polysaccharide, 00:00:00 [place] [facility] PPSV23 (PNEUMOVAX) Branch Influenza Virus 2020-08-09 Completed Universit y of Vaccine Quad .5 mL 00:00:00 [facility] 6+ MO Branch TDAP 2020-08-09 Completed University of 00:00:00 [facility] Pneumococcal 2020-08-09 Completed University o f Polysaccharide, 00:00:00 [place] [facility] PPSV23 (PNEUMOVAX) Branch Influenza Virus 2020-08-09 Completed Universit y of Vaccine Quad .5 mL 00:00:00 [facility] 6+ MO Branch TDAP 2020-08-09 Completed University of 00:00:00 [facility] Pneumococcal 2020-08-09 Completed University o f Polysaccharide, 00:00:00 [place] [facility] PPSV23 (PNEUMOVAX) Branch Influenza Virus 2020-08-09 Completed Universit y of Vaccine Quad .5 mL 00:00:00 [facility] 6+ MO Branch TDAP 2020-08-09 Completed University of 00:00:00 [facility] Pneumococcal 2020-08-09 Completed University o f Polysaccharide, 00:00:00 [place] [facility] PPSV23 (PNEUMOVAX) Branch Influenza Virus 2020-08-09 Completed Universit y of Vaccine Quad .5 mL 00:00:00 [facility] 6+ MO Branch TDAP 2020-08-09 Completed University of 00:00:00 [facility] Pneumococcal 2020-08-09 Completed University o f Polysaccharide, 00:00:00 [place] [facility] PPSV23 (PNEUMOVAX) Branch Influenza Virus 2020-08-09 Completed Universit y of Vaccine Quad .5 mL 00:00:00 [facility] 6+ MO [place] TDAP 2020-08-09 Completed University of 00:00:00 [facility] Pneumococcal 2020-08-09 Completed University o f Polysaccharide, 00:00:00 [place] [facility] PPSV23 (PNEUMOVAX) Branch Influenza Virus 2020-08-09 Completed Universit y of Vaccine Quad .5 mL 00:00:00 [facility] 6+ MO [place] TDAP 2020-08-09 Completed University of 00:00:00 [facility] Pneumococcal 2020-08-09 Completed University o f Polysaccharide, 00:00:00 [place] [facility] PPSV23 (PNEUMOVAX) Branch Influenza Virus 2020-08-09 Completed Universit y of Vaccine Quad .5 mL 00:00:00 [facility] 6+ MO [place] TDAP 2020-08-09 Completed University of 00:00:00 [facility] Pneumococcal 2020-08-09 Completed University o f Polysaccharide, 00:00:00 [place] [facility] PPSV23 (PNEUMOVAX) Branch Influenza Virus 2020-08-09 Completed Universit y of Vaccine Quad .5 mL 00:00:00 [facility] 6+ MO [place] TDAP 2020-08-09 Completed University of 00:00:00 [facility] Pneumococcal 2020-08-09 Completed University o f Polysaccharide, 00:00:00 [place] [facility] PPSV23 (PNEUMOVAX) Branch Influenza Virus 2020-08-09 Completed Universit y of Vaccine Quad .5 mL 00:00:00 [facility] 6+ MO [place] TDAP 2020-08-09 Completed University of 00:00:00 [facility] Pneumococcal 2020-08-09 Completed University o f Polysaccharide, 00:00:00 [place] [facility] PPSV23 (PNEUMOVAX) Branch Influenza Virus 2020-08-09 Completed Universit y of Vaccine Quad .5 mL 00:00:00 [facility] 6+ MO Branch TDAP 2020-08-09 Completed University of 00:00:00 [facility] Pneumococcal 2020-08-09 Completed University o f Polysaccharide, 00:00:00 [place] [facility] PPSV23 (PNEUMOVAX) Branch Influenza Virus 2020-08-09 Completed Universit y of Vaccine Quad .5 mL 00:00:00 [facility] 6+ MO Branch TDAP 2020-08-09 Completed University of 00:00:00 [facility] Pneumococcal 2020-08-09 Completed University o f Polysaccharide, 00:00:00 [place] [facility] PPSV23 (PNEUMOVAX) Branch Influenza Virus 2020-08-09 Completed Universit y of Vaccine Quad .5 mL 00:00:00 [facility] 6+ MO Branch TDAP 2020-08-09 Completed University of 00:00:00 [facility] Pneumococcal 2020-08-09 Completed University o f Polysaccharide, 00:00:00 [place] [facility] PPSV23 (PNEUMOVAX) Branch Influenza Virus 2020-08-09 Completed Universit y of Vaccine Quad .5 mL 00:00:00 [facility] 6+ MO Branch TDAP 2020-08-09 Completed University of 00:00:00 [facility] Pneumococcal 2020-08-09 Completed University o f Polysaccharide, 00:00:00 [place] [facility] PPSV23 (PNEUMOVAX) Branch Influenza Virus 2020-08-09 Completed Universit y of Vaccine Quad .5 mL 00:00:00 [facility] 6+ MO Branch TDAP 2020-08-09 Completed University of 00:00:00 [facility] Pneumococcal 2020-08-09 Completed University o f Polysaccharide, 00:00:00 [place] [facility] PPSV23 (PNEUMOVAX) Branch Influenza Virus 2020-08-09 Completed Universit y of Vaccine Quad .5 mL 00:00:00 [facility] 6+ MO Branch TDAP 2020-08-09 Completed University of 00:00:00 [facility] Pneumococcal 2020-08-09 Completed University o f Polysaccharide, 00:00:00 [place] [facility] PPSV23 (PNEUMOVAX) Branch PPD (TB) 2016-01-17 Completed University of 00:00:00 [facility] PPD (TB) 2016-01-17 Completed University of 00:00:00 [facility] PPD (TB) 2016-01-17 Completed University of 00:00:00 [facility] PPD (TB) 2016-01-17 Completed University of 00:00:00 [facility] PPD (TB) 2016-01-17 Completed University of 00:00:00 [facility] PPD (TB) 2016-01-17 Completed University of 00:00:00 [facility] PPD (TB) 2016-01-17 Completed University of 00:00:00 [facility] PPD (TB) 2016-01-17 Completed University of 00:00:00 [facility] PPD (TB) 2016-01-17 Completed University of 00:00:00 [facility] PPD (TB) 2016-01-17 Completed University of 00:00:00 [facility] PPD (TB) 2016-01-17 Completed University of 00:00:00 [facility] PPD (TB) 2016-01-17 Completed University of 00:00:00 [facility] PPD (TB) 2016-01-17 Completed University of 00:00:00 [facility] PPD (TB) 2016-01-17 Completed University of 00:00:00 [facility] PPD (TB) 2016-01-17 Completed University of 00:00:00 [facility] PPD (TB) 2016-01-17 Completed University of 00:00:00 [facility] PPD (TB) 2016-01-17 Completed University of 00:00:00 [facility] PPD (TB) 2016-01-17 Completed University of 00:00:00 [facility] PPD (TB) 2016-01-17 Completed University of 00:00:00 [facility] PPD (TB) 2016-01-17 Completed University of 00:00:00 [facility] PPD (TB) 2016-01-17 Completed University of 00:00:00 [facility] PPD (TB) 2016-01-17 Completed University of 00:00:00 [facility] PPD (TB) 2016-01-17 Completed University of 00:00:00 [facility] PPD (TB) 2016-01-17 Completed University of 00:00:00 [facility] PPD (TB) 2016-01-17 Completed University of 00:00:00 [facility] PPD (TB) 2016-01-17 Completed University of 00:00:00 [facility] PPD (TB) 2016-01-17 Completed University of 00:00:00 [facility] PPD (TB) 2016-01-17 Completed University of 00:00:00 [facility] PPD (TB) 2016-01-17 Completed University of 00:00:00 [facility] PPD (TB) 2016-01-17 Completed University of 00:00:00 [facility] PPD (TB) 2016-01-17 Completed University of 00:00:00 [facility] PPD (TB) 2016-01-17 Completed University of 00:00:00 [facility] PPD (TB) 2016-01-17 Completed University of 00:00:00 [facility] PPD (TB) 2016-01-17 Completed University of 00:00:00 [facility] PPD (TB) 2016-01-17 Completed University of 00:00:00 [facility] PPD (TB) 2016-01-17 Completed University of 00:00:00 [facility] PPD (TB) 2016-01-17 Completed University of 00:00:00 [facility] PPD (TB) 2016-01-17 Completed University of 00:00:00 [facility] PPD (TB) 2016-01-17 Completed University of 00:00:00 [facility] PPD (TB) 2016-01-17 Completed University of 00:00:00 [facility] PPD (TB) 2016-01-17 Completed University of 00:00:00 [facility] PPD (TB) 2016-01-17 Completed University of 00:00:00 [facility] PPD (TB) 2016-01-17 Completed University of 00:00:00 [facility] PPD (TB) 2016-01-17 Completed University of 00:00:00 [facility] PPD (TB) 2016-01-17 Completed University of 00:00:00 [facility] PPD (TB) 2016-01-17 Completed University of 00:00:00 [facility] PPD (TB) 2016-01-17 Completed University of 00:00:00 [facility] PPD (TB) 2016-01-17 Completed University of 00:00:00 [facility] PPD (TB) 2016-01-17 Completed University of 00:00:00 [facility] PPD (TB) 2016-01-17 Completed University of 00:00:00 [facility] PPD (TB) 2016-01-17 Completed University of 00:00:00 [facility] PPD (TB) 2016-01-17 Completed University of 00:00:00 [facility] PPD (TB) 2016-01-17 Completed University of 00:00:00 [facility] PPD (TB) 2016-01-17 Completed University of 00:00:00 [facility] PPD (TB) 2016-01-17 Completed University of 00:00:00 [facility] PPD (TB) 2016-01-17 Completed University of 00:00:00 [facility] PPD (TB) 2016-01-17 Completed University of 00:00:00 [facility] PPD (TB) 2016-01-17 Completed University of 00:00:00 [facility] Vital Signs Vital Name Observation Time Observation Value Comments Source Systolic blood 2021-03-10 19:08:00 93 mm[Hg] Univer sity of pressure [facility] Diastolic blood 2021-03-10 19:08:00 60 mm[Hg] Unive rsity of [facility] Heart rate 2021-03-10 19:06:00 84 /min Universi ty of [facility] Body height 2021-03-10 19:06:00 180.3 cm Universi ty [facility] Body weight 2021-03-10 19:06:00 88.451 kg Universi ty of [facility] BMI 2021-03-10 19:06:00 27.20 kg/m2 Universi ty [facility] Oxygen saturation in 2021-03-10 19:06:00 98 /min [facility] Arterial blood by [facility] Pulse oximetry [place] Systolic blood 2020-12-09 16:15:00 111 mm[Hg] Univer sity of [facility] Diastolic blood 2020-12-09 16:15:00 74 mm[Hg] Unive rsity of [facility] Heart rate 2020-12-09 16:15:00 98 /min Universi ty [facility] Body temperature 2020-12-09 16:15:00 [facility].39 [facility] 2020-12-09 16:15:00 18 /[facility] height 2020-12-09 16:15:00 180.3 cm Universi ty of [facility] Body weight 2020-12-09 16:15:00 87.544 kg Universi ty of [facility] BMI 2020-12-09 16:15:00 26.92 kg/m2 [facility] ty [facility] Oxygen saturation in 2020-12-09 16:15:00 97 /min University of Arterial blood by [facility] Pulse oximetry Branch Systolic blood 2020-11-25 16:22:00 80 mm[Hg] Univer sity of pressure [facility] Diastolic blood 2020-11-25 16:22:00 56 mm[Hg] Unive rsity of pressure [facility] Heart rate 2020-11-25 16:22:00 88 /min [facility]i ty [facility] Body temperature 2020-11-25 16:22:00 36.22 Leila Univ ersity of [facility] Respiratory rate 2020-11-25 16:22:00 18 /min Univ ersity of [facility] Body weight 2020-11-25 16:22:00 88.451 kg [facility]i ty [facility] BMI 2020-11-25 16:22:00 27.20 kg/m2 [facility] ty [facility] Oxygen saturation in 2020-11-25 16:22:00 96 /min University of Arterial blood by [facility] Pulse oximetry Branch Systolic blood 2020-11-22 21:50:00 105 mm[Hg] Univer sity of pressure [facility] Diastolic blood 2020-11-22 21:50:00 88 mm[Hg] Unive rsity of pressure [facility] Heart rate 2020-11-22 21:50:00 77 /min Universi ty [facility] Oxygen saturation in 2020-11-22 21:50:00 97 /min University of Arterial blood by [facility] Pulse oximetry Branch Respiratory rate 2020-11-22 20:19:00 20 /min Univ ersity of [facility] Body temperature 2020-11-22 20:17:00 36.22 Leila Univ ersity of [facility] Body weight 2020-11-21 23:04:00 86.183 kg Universi ty [facility] BMI 2020-11-21 23:04:00 26.50 kg/m2 [facility] ty [facility] Systolic blood 2020-11-09 19:00:00 114 mm[Hg] Univer sity of [facility] Diastolic blood 2020-11-09 19:00:00 67 mm[Hg] Unive rsity of [facility] Heart rate 2020-11-09 19:00:00 75 /min Universi ty of [facility] Respiratory rate 2020-11-09 19:00:00 19 /min Univ ersity of [facility] Oxygen saturation in 2020-11-09 19:00:00 92 /min University Arterial blood by [facility] Pulse oximetry Branch Body temperature 2020-11-09 17:53:00 36.89 Leila Univ ersity of [facility] Body weight 2020-11-09 17:53:00 90.719 kg Universi ty of [facility] BMI 2020-11-09 17:53:00 27.89 kg/m2 Universi ty of [facility] Systolic blood 2020-11-09 17:19:00 65 mm[Hg] Univer sity of pressure [facility] Diastolic blood 2020-11-09 17:19:00 44 mm[Hg] Unive rsity of pressure [facility] Heart rate 2020-11-09 17:18:00 108 /min Universi ty of [facility] Body temperature 2020-11-09 17:18:00 36.5 Leila Univ ersity of [facility] Respiratory rate 2020-11-09 17:18:00 26 /min Univ ersity of [facility] Body height 2020-11-09 17:18:00 180.3 cm Universi ty of [place] [facility] [place] Body weight 2020-11-09 17:18:00 91.445 kg [facility]i ty of [place] [facility] [place] BMI 2020-11-09 17:18:00 28.12 kg/m2 Universi ty of [facility] Systolic blood 2020-11-08 16:48:00 73 mm[Hg] Univer sity of pressure [facility] Diastolic blood 2020-11-08 16:48:00 46 mm[Hg] Unive rsity of pressure [facility] Heart rate 2020-11-08 16:48:00 87 /min Universi ty of [facility] Body temperature 2020-11-08 16:48:00 36.56 Leila Univ ersity of [facility] Branch Body height 2020-11-08 16:48:00 180.3 cm Universi ty of [facility] Body weight 2020-11-08 16:48:00 91.218 kg Universi ty of [facility] BMI 2020-11-08 16:48:00 28.05 kg/m2 Universi ty of [facility] Oxygen saturation in 2020-11-08 16:48:00 97 /min University of Arterial blood by [place] [facility] Pulse oximetry Branch Systolic blood 2020-11-02 21:56:00 94 mm[Hg] Univer sity of pressure [facility] Diastolic blood 2020-11-02 21:56:00 61 mm[Hg] Unive rsity of pressure [facility] Heart rate 2020-11-02 21:56:00 62 /min Universi ty of [facility] Body temperature 2020-11-02 21:56:00 37.28 Leila Univ ersity of [facility] Respiratory rate 2020-11-02 21:56:00 18 /min Univ ersity of [facility] Body height 2020-11-02 21:56:00 180.3 cm Universi ty [facility] Body weight 2020-11-02 21:56:00 86.183 kg Universi ty of [facility] BMI 2020-11-02 21:56:00 26.50 kg/m2 Universi ty of [facility] Oxygen saturation in 2020-11-02 21:56:00 95 /min University of Arterial blood by [facility] Pulse oximetry Branch Systolic blood 2020-10-05 18:00:00 128 mm[Hg] Univer sity of pressure [facility] Diastolic blood 2020-10-05 18:00:00 77 mm[Hg] Unive rsity of pressure [facility] Heart rate 2020-10-05 18:00:00 82 /min Universi ty of [facility] Body temperature 2020-10-05 18:00:00 36.72 Leila Univ ersity of [facility] Respiratory rate 2020-10-05 18:00:00 20 /min Univ ersity of [facility] Oxygen saturation in 2020-10-05 18:00:00 99 /min University of Arterial blood by [place] [facility] Pulse oximetry [facility] Body weight 2020-10-05 10:27:00 85.872 kg Universi ty of [facility] BMI 2020-10-05 10:27:00 26.40 kg/m2 Universi ty of [facility] Systolic blood 2020-09-01 01:00:00 96 mm[Hg] Univer sity of pressure [facility] Diastolic blood 2020-09-01 01:00:00 72 mm[Hg] Unive rsity of pressure [facility] Heart rate 2020-09-01 01:00:00 80 /min Universi ty of [facility] Respiratory rate 2020-09-01 01:00:00 20 /min Univ ersity of [facility] Oxygen saturation in 2020-09-01 01:00:00 97 /min University of Arterial blood by [place] [facility] Pulse oximetry Branch Body temperature 2020-09-01 00:05:00 36.39 Leila Univ ersity of [facility] Body height 2020-09-01 00:05:00 180.3 cm Universi ty [facility] Body weight 2020-09-01 00:05:00 86.183 kg Universi ty [facility] BMI 2020-09-01 00:05:00 26.50 kg/m2 Universi ty of [facility] Systolic blood 2020-08-20 21:00:00 116 mm[Hg] Univer sity of pressure [facility] Diastolic blood 2020-08-20 21:00:00 70 mm[Hg] Unive rsity of pressure [facility] Heart rate 2020-08-20 21:00:00 99 /min Universi ty of [facility] Body temperature 2020-08-20 21:00:00 36.72 Leila Univ ersity of [facility] Respiratory rate 2020-08-20 21:00:00 19 /min Univ ersity of [facility] Oxygen saturation in 2020-08-20 21:00:00 96 /min University of Arterial blood by [facility] arnel Pulse oximetry Branch Body weight 2020-08-20 20:35:00 90.266 kg Universi ty of [facility] BMI 2020-08-20 20:35:00 27.75 kg/m2 Universi ty of [facility] Systolic blood 2020-08-09 16:53:00 102 mm[Hg] Univer sity of pressure [facility] Diastolic blood 2020-08-09 16:53:00 69 mm[Hg] Unive rsity of pressure [facility] Heart rate 2020-08-09 16:53:00 83 /min Universi ty of [facility] Body temperature 2020-08-09 16:53:00 36.44 Leila Univ ersity of [facility] Respiratory rate 2020-08-09 16:53:00 20 /min Univ ersity of [facility] Body height 2020-08-09 16:53:00 180.3 cm [facility]i ty [facility] Body weight 2020-08-09 16:53:00 90.674 kg [facility]i ty [facility] BMI 2020-08-09 16:53:00 27.88 kg/m2 [facility]i ty [facility] Oxygen saturation in 2020-08-09 16:53:00 98 /min University of Arterial blood by [place] [facility] Pulse oximetry Branch Systolic blood 2020-08-03 17:00:00 114 mm[Hg] Univer sity of pressure [facility] Diastolic blood 2020-08-03 17:00:00 61 mm[Hg] Unive rsity of pressure [facility] Heart rate 2020-08-03 17:00:00 74 /min Universi ty of [facility] Respiratory rate 2020-08-03 17:00:00 20 /min Univ ersity of [facility] Oxygen saturation in 2020-08-03 17:00:00 97 /min University of Arterial blood by [place] [facility] Pulse oximetry Branch Body temperature 2020-08-03 15:58:00 36.44 Leila Univ ersity of [facility] Body weight 2020-08-03 15:58:00 90.719 kg Universi ty of [facility] BMI 2020-08-03 15:58:00 27.89 kg/m2 Universi ty [facility] Systolic blood 2020-05-16 01:16:00 126 mm[Hg] Univer sity of pressure [facility] Diastolic blood 2020-05-16 01:16:00 85 mm[Hg] Unive rsity of pressure [facility] Heart rate 2020-05-16 01:16:00 71 /min [facility]i ty [facility] Respiratory rate 2020-05-16 01:16:00 30 /min Univ ersity of [facility] Oxygen saturation in 2020-05-16 01:16:00 95 /min University of Arterial blood by [place] [facility] Pulse oximetry [facility] Body temperature 2020-05-15 22:33:00 37 Leila Univ ersity of [facility] Body height 2020-05-15 22:33:00 180.3 cm Universi ty [facility] Body weight 2020-05-15 22:33:00 95.255 kg Universi ty [facility] BMI 2020-05-15 22:33:00 29.29 kg/m2 [facility]i ty [facility] Systolic blood 2020-03-22 01:00:00 101 mm[Hg] Univer sity of pressure [facility] Diastolic blood 2020-03-22 01:00:00 89 mm[Hg] Unive rsity of pressure [facility] Heart rate 2020-03-22 01:00:00 85 /min Universi ty of [facility] Respiratory rate 2020-03-22 01:00:00 28 /min Univ ersity of [facility] Oxygen saturation in 2020-03-22 01:00:00 94 /min University of Arterial blood by [facility] Pulse oximetry Branch Body temperature 2020-03-22 00:54:00 36.61 Leila Univ ersity of [facility] Body weight 2020-03-22 00:54:00 95.255 kg Universi ty of [facility] BMI 2020-03-22 00:54:00 29.29 kg/m2 Universi ty of [facility] Systolic blood 2020-01-12 21:06:00 97 mm[Hg] Univer sity of [facility] Diastolic blood 2020-01-12 21:06:00 72 mm[Hg] Unive rsity of pressure [facility] Heart rate 2020-01-12 21:06:00 90 /min Universi ty of [facility] Body temperature 2020-01-12 21:06:00 36.22 Leila Univ ersity of [facility] Respiratory rate 2020-01-12 21:06:00 18 /min Univ ersity of [facility] Body height 2020-01-12 21:06:00 180.3 cm Universi ty of [facility] Body weight 2020-01-12 21:06:00 97.614 kg Universi ty of [facility] BMI 2020-01-12 21:06:00 30.01 kg/m2 Universi ty [facility] Oxygen saturation in 2020-01-12 21:06:00 95 /min University of Arterial blood by [facility] Pulse oximetry Branch Procedures Procedure Date / Time Performing Clinician Source Performed SARS-COV-2 COVID-19 2021-05-24 20:15:00 Doctor Unassigned, [facility] [place] VACCINE,0.5ML,IM [facility] ([facility]) CBC WITH DIFF 2020-12-09 16:54:00 Isidoro Gentile [facility] GLYCOSYLATED HEMOGLOBIN 2020-12-09 16:54:00 Jonirashid Isidoro [facility] (A1C) [facility] POCT GLUCOSE (AUTOMATED) 2020-11-22 20:58:00 YanirapanchitoOrly brice [facility] POCT GLUCOSE (AUTOMATED) 2020-11-22 16:27:00 YanirapanchitoOrly brice [facility] POCT GLUCOSE (AUTOMATED) 2020-11-22 12:38:00 YanirapanchitoJan bricechelsytara Vincent [facility] CORTISOL AM 2020-11-22 08:20[facility] 2020-11-22 08:[facility]00 [facility], CL, CO2, GLUCOSE, Medica l Branch BUN, CREATININE, CA) CBC WITH DIFF 2020-11-22 08:20:[address] [facility] VW 2020-11-22 02:39:[address] [facility] 2020-11-22 01:06:00 Aj [facility] ADC / LCC - DRUG SCREEN 2020-11-22 01:06:00 Richie Rocha [facility] BLOOD CULTURE SCREEN 2020-11-22 00:14:00 Richie Rocha [facility] BLOOD CULTURE SCREEN 2020-11-21 23:57:00 Richie Rocha [facility] COVID-19 (ID NOW RAPID 2020-11-21 23:44:00 Richie Rocha [facility] TESTING) [facility] [place] [facility] SALICYLATE 2020-11-21 23:43:00 Richie Rocha [facility] FREE T4 2020-11-21 23:28:00 [facility] HEPATIC FUNCTION PANEL 2020-11-21 23:28:00 Richie Rocha [facility] ([id number]) (ALB,T.PRO,BILI Medical Branch T,BU/BC,ALT,AST,ALK PHOS) AC PANEL 21 + LACTIC ACID 2020-11-21 23:28:00 Richie Rocha [facility] CREATINE KINASE 2020-11-21 23:19:00 Richie Rocha [facility] LIPASE 2020-11-21 23:19:00 Richie Rocha [facility] MAGNESIUM 2020-11-21 23:19:00 Richie Rocha [facility] TROPONIN I 2020-11-21 23:19:00 Richie Rocha [facility] BASIC METABOLIC PANEL 2020-11-21 23:19:00 Richie Rocha [facility] (NA, K, CL, CO2, GLUCOSE, Medica l Branch BUN, CREATININE, CA) ETHANOL 2020-11-21 23:19:00 Richie Rocha [facility] CBC WITH DIFF 2020-11-21 23:19:00 Richie Rocha [facility] PROTHROMBIN TIME / INR 2020-11-21 23:19:00 Richie Rocha [facility] ACTIVATED PARTIAL 2020-11-21 23:19:00 Richie Rocha [facility] THRMPLAS N-TERMINAL PRO-BNP 2020-11-21 23:19:00 Richie Rocha [facility] HB ECG ROUTINE & RHYTHM 2020-11-21 23:18:30 Richie Rocha [facility] NOTICE OF PRIVACY 2020-11-21 22:59:41 Doctor Unakileyigned, [facility] PRACTICES [place] [facility] [place] CONSENT/REFUSAL FOR 2020-11-21 22:57:53 [facility] DIAGNOSIS AND TREATMENT [place] [facility] COVID-19 (ID NOW RAPID 2020-11-09 19:19:00 Emigdio Ruelas [facility] TESTING) Medical Branch XR CHEST 1 VW 2020-11-09 18:43:51 Emigdio Ruelas [facility] TROPONIN I 2020-11-09 18:06:00 Emigdio Ruelas [facility] COMP. METABOLIC PANEL 2020-11-09 18:06:00 Emigdio Ruelas Un [facility] ([id number]) Medical Branch CBC WITH DIFF 2020-11-09 18:06:00 Emigdio Ruelas [facility] N-TERMINAL PRO-BNP 2020-11-09 18:06:00 Emigdio Ruelas [facility] CONSENT/REFUSAL FOR 2020-11-09 17:44:56 Doctor Unassigned, [facility] DIAGNOSIS AND TREATMENT [place] [facility] [facility] POCT GLUCOSE (AUTOMATED) 2020-10-05 18:07:00 Edmarty [facility] AMMONIA, PLASMA 2020-10-05 16:37:00 [facility] POCT GLUCOSE (AUTOMATED) 2020-10-05 13:57:00 [facility]EL 2020-10-05 10:32:00 [facility] (NA, K, CL, CO2, GLUCOSE, Medica l Branch BUN, CREATININE, CA) CBC WITH DIFF 2020-10-05 10:32:00 Bebeto [facility] ADC / LCC - DRUG SCREEN 2020-10-04 23:36:00 Bebeto [facility] POCT GLUCOSE (AUTOMATED) 2020-10-04 22:50:00 [facility] (AUTOMATED) 2020-10-04 18:28:00 [facility] PO[facility]SE (AUTOMATED) 2020-10-04 13:43:00 Edioneris [facility] BASIC METABOLIC PANEL 2020-10-04 11:42:00 [facility] (NA, K, CL, CO2, GLUCOSE, Medica l Branch BUN, CREATININE, CA) CBC WITH DIFF 2020-10-04 11:42:[address] [facility] X[facility]ST 1 VW 2020-10-04 03:33:00 Santos Blanchard [facility] URINALYSIS 2020-10-04 01:13:00 Santos Blanchard [facility] COVID-19 (ID NOW RAPID 2020-10-04 00:43:00 Santos Blanchard [facility] TESTING) Medical Branch MAGNESIUM 2020-10-03 23:52:00 Santos Blanchard [facility] TROPONIN I 2020-10-03 23:52:00 Santos Blanchard [facility] COMP. METABOLIC PANEL 2020-10-03 23:52:00 Santos Blanchard [facility] ([id number]) Medical Branch ETHANOL 2020-10-03 23:52:00 [facility] CBC WITH DIFF 2020-10-03 23:52:00 Santos Blanchard [facility] CT HEAD WO CONTRAST 2020-10-03 23:27:21 Santos Blanchard [facility] HB ECG ROUTINE & RHYTHM 2020-10-03 23:08:57 Santos Blanchard [facility] NOTICE OF PRIVACY 2020-10-03 22:55:02 Doctor Unassigned, [facility] PRACTICES [place] [facility] [place] CONSENT/REFUSAL FOR 2020-10-03 22:54:21 [facility] DIAGNOSIS AND TREATMENT [place] [facility] CREATINE KINASE 2020-09-01 00:34:00 Richie Rocha [facility] FREE T4 2020-09-01 00:34:00 Aj [facility]ie [facility] HEPATIC FUNCTION PANEL 2020-09-01 00:34:00 Richie Rocha [facility] ([id number]) (ALB,T.PRO,[facility] T,BU/BC,ALT,AST,ALK PHOS) BASIC METABOLIC PANEL 2020-09-01 00:34:00 Richie Rocha [facility] (NA, K, CL, CO2, GLUCOSE, Medica l Branch BUN, CREATININE, CA) SALICYLATE 2020-09-01 00:34:00 Richie Rocha [facility] ETHANOL 2020-09-01 00:34:00 Richie Rocha [facility] CBC WITH DIFF 2020-09-01 00:34:00 Richie Rocha [facility] URINALYSIS 2020-09-01 00:34:00 Aj [facility] ADC / LCC - DRUG SCREEN 2020-09-01 00:34:00 Richie Rocha [facility] CT LUNG CANCER SCREENING 2020-08-30 21:32:31 Isidoro Gentile [facility] CONSENT/REFUSAL FOR 2020-08-20 20:27:17 Doctor Unassigned, [facility] DIAGNOSIS AND TREATMENT [place] [facility] [place] PNEUMOCOCCAL VACCINE, 2020-08-09 17:38:30 Isidoro Gentile [facility] 23-VALENT (PNEUMOVAX) Medical Br anch TDAP VACCINE, >11 YRS, IM 2020-08-09 17:35:06 [facility] FLU VACC ([id number]), 6+ 2020-08-09 17:35:06 Isidoro Gentile [facility] MONTHS, IM, QUAD [facility] [place] XR CHEST 1 VW 2020-08-03 16:25:10 Blayne Obrien [facility] LIPASE 2020-08-03 16:07:00 Blayne Obrien [facility] TROPONIN I 2020-08-03 16:07:00 Blayne Obrien [facility] COMP. METABOLIC PANEL 2020-08-03 16:07:00 Blayne Obrien [facility] ([id number]) [facility] CBC WITH DIFF 2020-08-03 16:07:00 Blayne Obrien [facility] PROTHROMBIN TIME / INR 2020-08-03 16:07:00 Blayne Obrien [facility] ACTIVATED PARTIAL 2020-08-03 16:07:00 Blayne Obrien [facility] THRMPLAS URINALYSIS 2020-05-15 23:36:00 Stacie Peter [facility] CREATINE KINASE 2020-05-15 22:44:00 Stacie Peter [facility] LIPASE 2020-05-15 22:44:00 Aj [facility] TROPONIN I 2020-05-15 22:44:00 Richie Rocha [facility] COMP. METABOLIC PANEL 2020-05-15 22:44:00 Richie Rocha [facility] ([id number]) Medical Branch CBC WITH DIFF 2020-05-15 22:44:00 Richie Rocha [facility] PROTHROMBIN TIME / INR 2020-05-15 22:44:00 Richie Rocha [facility] ACTIVATED PARTIAL 2020-05-15 22:44:00 Richie Rocha [facility] THRMPLAS IFTIKHAR [facility] EKG-12 LEAD 2020-05-15 22:39:32 Richie Rocha [facility] MEDICATION CORRESPONDENCE 2020-04-03 05:01:00 Doctor Unassigned, [facility] [place] [facility] REFERRAL- 2020-03-10 05:01:00 Doctor Unassigned, [facility] REQUEST/RESPONSE [place] [facility] URINALYSIS 2020-01-15 14:15:00 Isidoro Gentile [facility] FREE T4 2020-01-15 14:12:00 Isidoro Gentile [facility] THYROID STIMULATING 2020-01-15 14:12:00 Isidoro Gentile [facility] HORMONE [facility] [place] COMP. METABOLIC PANEL 2020-01-15 14:12:00 Isidoro Gentile [facility] ([id number]) [facility] LIPID PANEL (64474)(TOTAL 2020-01-15 14:12:00 Isidoro Gentile [facility] CHOLESTEROL, [facility] [place] TRIGLYCERIDES, HDL) CBC WITH DIFFERENTIAL 2020-01-15 14:12:00 Isidoro Gentile [facility] GLYCOSYLATED HEMOGLOBIN 2020-01-15 14:12:00 Isidoro Gentile [facility] (A1C) [facility] FREE T3 2020-01-15 14:12:00 Isidoro Gentile [facility] ASSIGNMENT OF BENEFITS 2020-01-15 13:57:35 Doctor Unassigned, [facility] Name [facility] Encounters Start End Encounter Admission Attending Care Care Encounter Source Date/Time Date/Time Type Type Clinicians Facility Department ID 2021-07-09 Emergency [facility] [id number] Univers 06:11:16 [facility] 2021-07-09 Emergency [facility] [id number] Univers 02:50:36 ity of [facility] 2021-07-08 Emergency [facility] [id number] Univers 19:31:11 ity of [facility] 2021-07-08 Emergency [facility] [id number] Univers 13:04:08 ity of [facility] 2021-07-08 Emergency [facility] [id number] Univers 10:55:04 ity of [facility] 2021-07-08 Emergency [facility] [id number] Univers 07:44:33 ity of [facility] 2021-07-07 Emergency [facility] [id number] Univers 16:10:59 ity of [facility] 2021-07-07 Emergency [facility] [id number] Univers 06:30:53 ity of [facility] 2021-07-03 2021-07-03 Outpatient R DE [facility] [id number] Univers 15:00:00 15:00:00 ELIZA [id number] ity [facility] 2021-06-29 2021-06-29 Telephone [facility] 1.2.840.114 [id number] Univers 00:00:00 00:00:00 Isidoro Nova 350.1.13.10 [place] [phone] [address] 2021-06-13 2021-06-13 Outpatient [facility] [id number] Univers 15:40:00 15:40:00 ISIDORO [id number] ity of [facility] 2021-06-13 2021-06-13 Out[facility] [id number] Univers 15:40:00 15:40:[address] [facility] 2021-06-13 2021-06-13 Telephone [facility] 1.2.840.114 [id number] Univers 00:00:00 00:00:00 Isidoro Nova 350.1.13.10 i ty of [place] 4[place].2.[place] [phone] De dic[address] 2021-05-24 2021-05-24 Outpatient R JERRY [facility] [id number] Univers 15:20:00 15:20:[address] [facility] 2021-05-24 2021-05-24 Imm/Inj Nurse, Adc Pob Immunization [facility] 1.2.840.114 [id number] Univers 15:12:58 15:13:44 Visit Marcio Edwards 350.1.13 .10 it[place] of [id number] [phone] [facility] 421 [facility] 2021-05-24 2021-05-24 [facility] 1.2.840.114 [id number] Univers 00:00:00 00:00:00 Isidoro Nova 350.1.13.10 i ty of [place] 4.[place] [phone] [address] 2021-05-06 2021-05-06 [facility] 1.2.840.114 [id number] Univers 00:00:00 00:00:00 Isidoro Nova 350.1.13.10 [place] 4[place] [phone] [address] 2021-04-24 2021-04-24 Outpatient R SISSY [facility] [id number] Univers 13:00:00 13:00:00 SENDIL [id number] [facility] 2021-04-24 2021-04-24 Outpatient R SISSY [facility] [id number] Univers 13:00:00 13:00:00 SENDIL [facility] 2021-03-23 2021-03-23 Refill [facility] 1.2.840.114 [id number] Univers 00:00:00 00:00:00 Isidoro Nova 350.1.13.10 i [place] [phone] [address] 2021-03-17 2021-03-17 Out[address] [facility] [id number] Univers 13:00:00 13:00:00 ISIDORO [id number] [facility] 2021-03-17 2021-03-17 Outpatient [facility] [facility] [id number] Univers 13:00:00 13:00:00 ISIDORO [facility] 2021-03-10 2021-03-10 Office [facility] 1.2.840.114 [id number] Univers 13:20:42 14:52:34 Visit Isidoro Nova 350.1.13.10 i ty of [place] 4.2.7.2.[place] [phone] De dical nal [address] [place] [address] 2021-03-10 2021-03-10 Outpatient R [facility] [id number] Univers 13:40:00 13:40:00 ISIDORO [id number] [facility] 2021-03-10 2021-03-10 Outpatient R [facility] [id number] Univers 13:40:00 13:40:00 ISIDORO [facility] 2021-02-24 2021-02-24 [facility] 1.2.840.114 [id number] Univers 00:00:00 00:00:00 Isidoro Nova 350.1.13.10 i [place] of [place] 4[place].2.[place] [phone] De dical nal [address] [place] [address] 2021-02-01 2021-02-01 Outpatient R [facility] [id number] Univers 13:00:00 13:00:00 ISIDORO [id number] [facility] 2021-02-01 2021-02-01 Outpatient R [facility] [id number] Univers 13:00:00 13:00:00 ISIDORO [facility] 2021-01-26 2021-01-26 Outpatient R [facility] [id number] Univers 13:00:00 13:00:00 ISIDORO [id number] [facility] 2021-01-26 2021-01-26 Outpatient R LUANA [facility] [id number] Univers 13:00:00 13:00:[address] [facility] 2021-01-25 2021-01-25 Outpatient R LUANA [facility] [id number] Univers 10:40:00 10:40:00 ISIDORO [id number] [facility] 2021-01-25 2021-01-25 Outpatient R LUANA [facility] [id number] Univers 10:40:00 10:40:00 ISIDORO [facility] 2021-01-06 2021-01-06 Outpatient R LUANA [facility] [id number] Univers 11:20:00 11:20:00 ISIDORO [id number] [facility] 2021-01-02 2021-01-02 [facility]ill [facility] 1..840.114 [id number] Univers 00:00:00 00:00:00 Isidoro Nova 350.1.13.10 i [place] [phone] [facility] 231 [facility] 2020-12-23 2020-12-23 Outpatient R LUANA [facility] [id number] Univers 16:20:00 16:20:00 ISIDORO [id number] [facility] 2020-12-09 2020-12-09 Theatre Director 2, Adc Lab [facility] 1.2.840.114 [id number] Univers 11:49:13 12:04:13 Visit Isidoro Gentile 350.1.13.10 ity of [place] 4.2.7.2.[place] [phone] De dical [facility] 353 [facility] 2020-12-09 2020-12-09 Office [facility] ..840.114 [id number] Univers 10:46:37 11:56:32 Visit Isidoro Nova 350.1.13.10 i [place] 4.2.7.2.[place] [phone] [address] 2020-12-09 2020-12-09 Outpatient R JONIRICKFABRICIOBENMER[facility] [id number] Univers 11:00:00 11:00:00 ISIDORO [id number] [facility] 2020-12-09 2020-12-09 Outpatient R [facility]ID[facility] [id number] Univers 11:00:00 11:00:00 ISIDORO [facility] 2020-12-02 2020-12-02 Refill [facility] 1.2.840.114 [id number] Univers 00:00:00 00:00:00 Isidoro Nova 350.1.13.10 i ty of [place] 4.2.[place].2.[place] [phone] [address] 2020-11-28 2020-11-28 Outpatient R [facility] [id number] Univers 14:00:00 14:00:00 SENDIL [id number] [facility] 2020-11-28 2020-11-28 Telephone [facility] 1.2.840.114 [id number] Univers 00:00:00 00:00:00 Isidoro Nova 350.1.13.10 i ty of [place] 4.2.7.2.[place] [phone] [address] 2020-11-26 2020-11-26 Telephone [facility] 1.2.840.114 [id number] Univers 00:00:00 00:00:00 Isidoro Deleon 350.1.13.10 it y of [place] 4.2.7.2.686 [place] Professio [phone] [address] Office [address] 2020-11-25 2020-11-25 Office [facility] 1.2.840.114 [id number] Univers 11:09:04 12:19:04 Visit Isidoro Nova 350.1.13.10 i ty of [place] 4.2.7.2.[place] [phone] [address] 2020-11-25 2020-11-25 Outpatient R [facility] [id number] Univers 11:20:00 11:20:[id number] [facility] 2020-11-25 2020-11-25 Outpatient R LUANA [facility] [id number] Univers 11:20:00 11:20:[address] [facility] 2020-11-23 2020-11-23 Transition GarciaRafa 1.2.840.114 [id number] Univers 00:00:00 00:00:00 of Care Judie Grimesy 350.1.13.10 it y of [place] 4.2.7.2.686 [facility] [phone] [facility] [address] 2020-11-21 2020-11-22 Emergency Richie Rocha [facility] 1.2.840. 114 [id number] Univers 18:05:00 17:44:00 Orly Burnett 350.1.13.10 ity of [place] 4.2.7.2.686 [facility] [phone] [facility] 081 Branch 2020-11-16 2020-11-16 Outpatient MANGIN, [facility] [id number] [place] 00:00:00 00:00:00 DAVID [address] 2020-11-16 2020-11-16 Outpatient MANGIN, [facility] [id number] [place] 00:00:00 00:00:00 DAVID [address] 2020-11-09 2020-11-09 Emergency Jessenia [facility] 1.2.840.114 [id number] Univers 11:54:00 14:57:00 Emigdio Nova 350.1.13.10 ity of [place] 4.2.7.2.686 [facility] [phone] [facility] 084 Branch 2020-11-09 2020-11-09 Office [facility] 1.2.840.114 [id number] Univers 11:04:56 11:41:17 Visit Isidoro Nova 350.1.13.10 i ty of [place].2.[place] [phone] De dic[address] 2020-11-09 2020-11-09 Outpatient R [facility] [id number] Univers 11:20:00 11:20:00 ISIDORO [id number] [facility] 2020-11-09 2020-11-09 Outpatient R [facility] [id number] Univers 11:20:00 11:20:00 ISIDORO [facility] 2020-11-08 2020-11-08 [facility] 1.2.840.114 [id number] Univers 10:40:00 11:00:00 Visit Isidoro Nova 350.1.13.10 i ty of [place] 4.2.7.2.[place] [phone] [address] 2020-11-08 2020-11-08 Outpatient R [facility] [id number] Univers 10:40:00 10:40:00 ISIDORO [id number] [facility] 2020-11-08 2020-11-08 Outpatient R [facility] [id number] Univers 10:40:00 10:40:00 ISIDORO [facility] 2020-11-02 2020-11-02 Outpatient R [facility] [id number] Univers 16:40:00 16:40:00 [id number] [facility] 2020-11-02 2020-11-02 Outpatient R [facility] [id number] Univers 16:40:00 16:40:00 MARLA [facility] 2020-11-02 2020-11-02 Urgent Provider, [facility] 1.2.840.114 [id number] Univers 15:49:00 16:26:17 Care Rodger Marla [facility] 350.1.13. 10 ity [facility] 4.2.7.2.686 [place] Profess[place] [phone] [address] Office [address] 2020-11-01 2020-11-01 Outpatient R [facility] [id number] Univers 08:20:00 08:20:00 [id number] [facility] 2020-11-01 2020-11-01 [facility]ill [facility] 1.2.840.114 [id number] Univers 00:00:00 00:00:00 Isidoro Nova 350.1.13.10 i ty of [place] 4.2.7.2.686 [place] [facility] [phone] De dical [address] 2020-10-26 2020-10-26 Outpatient R [facility] [id number] Univers 14:40:00 14:40:00 ISIDORO [id number] [facility] 2020-10-18 2020-10-18 [address] [facility] [id number] Univers 11:40:00 11:40:00 SHARAN [id number] [facility] 2020-10-18 2020-10-18 [address] [facility] [address] [id number] Univers 11:40:00 11:40:00 SHARAN [facility] 2020-10-07 2020-10-07 Transition Rafa De Jesus 1.2.840.114 [id number] Univers 00:00:00 00:00:00 of Eloisa Akhtar 350.1.13.10 i ty of [place] 4[place]2.7.2.[place] [phone] [facility] 403 [address] 2020-10-03 2020-10-05 [facility] Santos Blanchard [facility] .2.840.1 [id number] Univers 17:05:00 15:38:00 Encounter Darya Tate 350.1.13.10 ity of [place] 4.2.7.2.686 [place] [phone] [facility] 081 Branch 2020-09-28 2020-09-28 [facility]ill [facility] 1.2.840.114 [id number] Univers 00:00:00 00:00:00 Isidoro Nova 350.1.13.10 i ty of [place] 4.2.7.2.[place] [phone] De dical nal [address] [place] [address] 2020-09-20 2020-09-20 Outpatient R KALI [facility] [id number] Univers 13:00:00 13:00:00 SHARAN [id number] [facility] 2020-09-20 2020-09-[address] [facility] [id number] Univers 13:00:00 13:00:00 SH[facility]AN [facility] 2020-08-31 2020-08-31 Emergency [facility] 1.2.803.792 [id number] Univers 18:03:00 20:11:00 Richie Nova 350.1.13.10 i ty of [place] 4.2.7.2.686 [facility] [phone] [facility] 0[address] [place] 2020-08-30 2020-08-30 [facility] 1.2.840.114 [id number] Univers 15:21:29 23:59:00 Encounter Isidoro Nova 350.1.13.10 ity of [place] 4.2.7.2.686 [facility] [phone] [facility] [address] [place] 2020-08-30 2020-08-30 Outpatient R [facility] [id number] 85P-20 Univers 15:30:00 15:30:00 ISIDORO [id number] [facility] 2020-08-30 2020-08-30 Outpatient [facility] [id number] Univers 00:00:00 00:00:00 [facility] 2020-08-24 2020-08-24 [facility] 1.2.840.114 [id number] Univers 00:00:00 00:00:00 Isidoro Nova 350.1.13.10 i ty of [place] 4.2.7.2.[place] [phone] De dical [address] 2020-08-20 2020-08-20 Emergency [facility] 1.2.840.114 [id number] Univers 14:34:00 15:24:00 Melida Nova 350.1.13.10 ity of [place] 4.2.7.2.686 [facility] [phone] [address] 2020-08-10 2020-08-10 Theatre Director Cholo, Mireya Lab Main [facility] 1.2.8 40.114 [id number] Univers 13:41:13 13:56:13 Visit Isidoro Gentile 350.1.13.10 ity of [place] 4.2.7.2.[place] [phone] De dical nal 353 [facility] 2020-08-10 2020-08-10 Outpatient R [facility] [id number] Univers 13:45:00 13:45:00 [facility] 2020-08-10 2020-08-10 Outpatient [facility] [id number] Univers 13:45:00 13:45:[address] [facility] 2020-08-09 2020-08-09 Office [facility] 1.2.840.114 [id number] Univers 10:41:01 11:56:25 Visit Isidoro Nova 350.1.13.10 i ty of [place] 4.2.7.2.686 [facility] Professio [phone] De dical nal 044 [facility] 2020-08-09 2020-08-09 Outpatient R [facility]ONIRICKEREN[facility] [id number] [id number]-20 Univers 10:40:00 10:40:00 ISIDORO [facility] 2020-08-09 2020-08-09 Outpatient R [facility] [id number] Univers 10:40:00 10:40:00 ISIDORO [facility] 2020-08-03 2020-08-03 Emergency [facility] 1.2.466.779 [id number] Univers 09:55:00 11:52:00 Blayne Nova 350.1.13.10 i ty of [place] 4.2.7.2.686 [facility] [phone] [address] 2020-05-26 2020-05-26 [facility]phone [facility] 1.2.840.114 [id number] Univers 00:00:00 00:00:00 Isidoro Nova 350.1.13.10 i ty of [place] 4.2.7.2.[place] [phone] De dical nal 044 [facility] 2020-05-15 2020-05-15 Emergency [facility] 1.2.229.724 [id number] Univers 17:40:00 21:00:00 Stacie Nova 350.1.13.10 ity of [place] 4.2.7.2.686 [facility] [phone] [address] 2020-05-06 2020-05-06 Telephone [facility] 1.2.840.114 [id number] Univers 00:00:00 00:00:00 Isidoro Nova 350.1.13.10 i ty of [place] 4.2.7.2.[place] [phone] De dicwy nal [address] [place] [address] 2020-04-13 2020-04-13 Outpatient [facility] [id number] 85P-20 Univers 13:40:00 13:40:[id number] [facility] 2020-04-13 2020-04-13 Outpatient R [facility] [id number] Univers 13:40:00 13:40:00 ISIDORO [facility] 2020-04-03 2020-04-03 Orders Doctor STELLA 1.2.840.114 [id number] Univers 00:00:00 00:00:00 Only Unassigned, KUNAL 350.1.13.10 ity of [place] [facility] 4.2.7.2.686 [place] as [phone] [address] 2020-03-21 2020-03-21 [facility] 1.2.840.114 [id number] Univers 19:50:42 20:29:00 Melida Nova 350.1.13.10 ity of [place] 4.2.7.2.686 [place] [facility] [phone] [address] 2020-03-18 2020-03-18 Telephone [facility] 1.2.840.114 [id number] Univers 00:00:00 00:00:00 Isidoro Nova 350.1.13.10 i ty of [place] 4.2.7.2.[place] [phone] De dical nal 044 [facility] 2020-03-10 2020-03-10 Orders Doctor STELLA 1.2.840.114 [id number] Univers 00:00:00 00:00:00 Only Unassigned, KUNAL 350.1.13.10 [facility] 4.2.7.2.686 [place] as [phone] [address] 2020-03-01 2020-03-01 Telephone [facility] 1.2.840.114 [id number] Univers 00:00:00 00:00:00 Isidoro Nova 350.1.13.10 i ty of [place] 4.2.7.2.[place] [phone] De dical nal 044 [facility] 2020-01-28 2020-01-28 Telephone [facility] 1.2.840.114 [id number] Univers 00:00:00 00:00:00 Isidoro [facility] 350.1.13.10 it y of [place] 4.2.7.2.686 [place] Professio [phone] [facility] 044 [place] Office [facility] 2020-01-15 2020-01-15 Theatre Director Mireya Emmanuel Lab Main [facility] 1.2.8 40.114 [id number] Univers 08:56:43 09:11:43 Visit Isidoro Gentile 350.1.13.10 ity of [place] 4.2.7.2.[place] [phone] [facility] 353 [facility] 2020-01-15 2020-01-15 Outpatient R [facility] [id number] Univers 08:45:00 08:45:[id number] [facility] 2020-01-15 2020-01-15 Outpatient [facility] [id number] Univers 08:45:00 08:45:[address] [facility] 2020-01-15 2020-01-15 Orders Doctor DOUGLAS [id number] Univers 00:00:00 00:00:00 Only Unassigned, KU[place] [id number] [facility] [id number] [place] as [phone] [address] 2020-01-13 2020-01-13 Outpatient R [facility] [id number] Univers 14:00:00 14:00:00 [facility] 2020-01-12 2020-01-12 [facility] [id number] Univers 15:30:35 16:26:43 Visit Isidoro Nova 350.1.13.10 [place] [phone] [address] 2020-01-12 2020-01-12 [address] [facility] [id number] Univers 15:40:00 15:40:00 ISIDORO [facility] 2020-01-12 2020-01-12 Outpatient [facility] [id number] Univers 15:40:00 15:40:00 ISIDORO [facility] 2020-01-12 2020-01-12 Out[facility] [id number] Univers 15:40:00 15:40:00 ISIDORO [facility] 2020-01-05 2020-01-05 [facility] 1.2.840.114 [id number] Univers 00:00:00 00:00:00 Isidoro Nova 350.1.13.10 [place] [phone] De dical [facility] 044 [facility] 2019-12-02 2019-12-02 RefFavio Almazan [facility] 1.2.840.114 [id number] Univers 00:00:00 00:00:00 Gil Nova 350.1.13.10 [place] [phone] [facility] 231 [facility] Results Test Description Test Time Test Comments Results Result Comments Source GLYCOSYLATED HEMOGLOBIN (A1C) 2020-12-09 18:09:28 Test Item Value Reference Range Interpretation Comme nts HGB A1C (test code = 4548-4) 7.0 % 4.0-6.0 H NIDIA (test code = NIDIA) %A1C (NGSP) Interpretation (ADA)4.8-5.6 ? ? Normal or (Non-Diabetic Range)5.7-6.4 ? ? Increased Risk (Pre-Diabetic)>6.5 ?Diabetes Indicated Lab Interpretation (test code = Abnormal 50926-0) [facility] WITH [id number] 17:23:10 Test Item Value Reference Range Interpretation Comments WBC (test code = See_Comment [Automated message] 2990-2) The system Training Advisor generated this result transmitted ref erence range: 4.20 - 1 0.70 10*3/?L. The re ference range was not u sed to interpret this result as normal/abnor mal. RBC (test code = See_Comment [Automated message] 349-8) The system Training Advisor generated this result transmitted ref erence range: 4.26 - 5 .52 10*6/?L. The re ference range was not u sed to interpret this result as normal/abnor mal. HGB (test code = 15.3 g/dL 12.2-16.4 718-7) HCT (test code = 45.6 % 38.4-49.3 4544-3) MCV (test code = 88.5 fL 81.7-95.6 787-2) MCH (test code = 29.7 pg 26.1-32.7 785-6) MCHC (test code = 33.6 g/dL 31.2-35.0 786-4) RDW-SD (test code 43.0 fL 38.5-51.6 = 91522-2) RDW-CV (test code 13.2 % 12.1-15.4 = 788-0) PLT (test code = See_Comment [Automated message] 677-3) The system Training Advisor generated this result transmitted ref erence range: 150 - 32 8 10*3/?L. The re ference range was not u sed to interpret this result as normal/abnor mal. MPV (test code = 10.8 fL 9.8-13.0 44584-9) NRBC/100 WBC (test See_Comment [Automat ed message] code = 6611219695) The syste m which generated this result transmitted ref erence range: 0.0 - 10 .0 /100 WBCs. The refer ence range was not u sed to interpret this result as normal/abnor mal. NRBC x10^3 (test <0.01 See_Comment [Automated message] code = 2725513526) The syste m which generated this result transmitted ref erence range: 10*3/?L. The reference range was not used to interpr et this result as normal/abnormal . GRAN MAT (NEUT) % 67.4 % (test code = 770-8) IMM GRAN % (test 0.60 % code = 7330645415) LYMPH % (test code 22.5 % = 736-9) MONO % (test code 7.0 % = 5905-5) EOS % (test code = 1.6 % 713-8) BASO % (test code 0.9 % = 706-2) GRAN MAT 5.52 10*3/uL 1.99-6.95 x10^3(ANC) (test code = 8587505732) IMM GRAN x10^3 0.05 10*3/uL 0.00-0.06 (test code = 5009464433) LYMPH x10^3 (test 1.84 10*3/uL 1.09-3.23 code = 731-0) MONO x10^3 (test 0.57 10*3/uL 0.36-1.02 code = 742-7) EOS x10^3 (test 0.13 10*3/uL 0.06-0.53 code = 711-2) BASO x10^3 (test 0.07 10*3/uL 0.01-0.09 code = 704-7) [facility] GLUCOSE (AUTOMATED)2020-11-22 21:02:14 Test Item Value Reference Range Interpretation Comments POCT GLU (test code = 3909192647) 212 mg/dL 70-110 H Lab Interpretation (test code = Abnormal 24599-5) [facility] GLUCOSE (AUTOMATED)2020-11-22 16:32:17 Test Item Value Reference Range Interpretation Comments POCT GLU (test code = 3537762534) 135 mg/dL 70-110 H Lab Interpretation (test code = Abnormal 38958-7) [facility] CenterCORTISOL [id number] 16:31:22 Test Item Value Reference Range Interpretation Comments MARCELLE AM (test code = 5.5 ug/dL 4.5-23.0 4497743923) NIDIA (test code = NIDIA) Biotin has been reported to cause a positive bias, interpret results relative to patient's use of biotin. Lab Interpretation (test Normal code = 19412-1) [facility] CenterPO[facility] GLUCOSE (AUTOMATED)2020-11-22 12:47:57 Test Item Value Reference Range Interpretation Comments POCT GLU (test code = 8325322292) 113 mg/dL 70-110 H Lab Interpretation (test code = Abnormal 94180-6) [facility] (NA, K, CL, CO2, GLUCOSE, BUN, CREATININE, CA)2020-11-22 09:25:33 Test Item Value Reference Range Interpretation Comments NA (test code = 136 mmol/L 135-145 2285996290) K (test code = 3.8 mmol/L 3.5-5.0 7873044468) CL (test code = 105 mmol/L 98-108 6637939124) CO2 TOTAL (test code = 26 mmol/L 23-31 9289313275) AGAP (test code = 2-16 4042118315) BUN (test code = 16 mg/dL 7-23 7452119644) GLUCOSE (test code = 116 mg/dL 70-110 H 6457993645) CREATININE (test code = 1.02 mg/dL 0.60-1.25 2086578723) CALCIUM (test code = 8.4 mg/dL 8.6-10.6 L 0468282429) eGFR Calculation mL/min/1.73m2 (Non-) (test code = 3791545448) eGFR Calculation mL/min/1.73m2 () (test code = 6534059950) NIDIA (test code = NIDIA) Association of Glomerular Filtration Rate (GFR) and Staging of Kidney Disease* + --+ --+ ------+| GFR (mL/min/1.73 m2) ?| With Kidney Damage ?| ?Without Kidney Damage+ --------+ --------+ +| ?>90 ?| ?Stage one ?| ? Normal ?+ ---+ ---+ -------+| ?60-89 ?| ?Stage two ?| ? Decreased GFR ? + --+ --+ ------+| ?30-59 ?| ?Stage three ?| ? Stage three ? + --+ --+ ------+| ?15-29 ?| ?Stage four ? | ? Stage four ?+ ---+ ---+ -------+| ?<15 (or dialysis) ? ?| ?Stage five ? | ? Stage five ?+ ---+ ---+ -------+ *Each stage assumes the associated GFR level has been in effect for at least three months. ?Stages 1 to 5, with or without kidney disease, indicate chronic kidney disease. Notes: Determination of stages one and two (with eGFR >59mL/min/1.73 m2) requires estimation of kidney damage for at least three months as defined by structural or functional abnormalities of the kidney, manifested by either:Pathological abnormalities or Markers of kidney damage (including abnormalities in the composition of the blood or urine or abnormalities in imaging tests). Lab Interpretation Abnormal (test code = 61917-5) [facility] with [id number] 09:15:12 Test Item Value Reference Range Interpretation Comments WBC (test code = See_Comment [Automated 8275-2) message] The sy stem which generated this result transmitted reference range : 4.20 - 10.70 10*3/?L. The reference range was not used to interpret this result as normal/abnormal . RBC (test code = See_Comment [Automated 045-8) message] The sy stem which generated this result transmitted reference range : 4.26 - 5.52 10*6/?L. The reference range was not used to interpret this result as normal/abnormal . HGB (test code = 13.1 g/dL 12.2-16.4 718-7) HCT (test code = 38.5 % 38.4-49.3 4544-3) MCV (test code = 88.9 fL 81.7-95.6 787-2) MCH (test code = 30.3 pg 26.1-32.7 785-6) MCHC (test code = 34.0 g/dL 31.2-35.0 786-4) RDW-SD (test code = 42.3 fL 38.5-51.6 11022-7) RDW-CV (test code = 12.9 % 12.1-15.4 788-0) PLT (test code = See_Comment [Automated 777-3) message] The sy stem which generated this result transmitted reference range : 150 - 328 10*3/ ?L. The reference r tin was not used to interpret this result as normal/abnormal . MPV (test code = 10.8 fL 9.8-13.0 17480-4) NRBC/100 WBC (test See_Comment [Automat ed code = 5213948591) message] The system which generated this result transmitted reference range : 0.0 - 10.0 /100 WBCs. The refer ence range was not u sed to interpret th is result as normal/abnormal . NRBC x10^3 (test code <0.01 See_Comment [Auto mated = 0067583505) message] The s ystem which generated this result transmitted reference range : 10*3/?L. The reference range was not used to interpret this result as normal/abnormal . GRAN MAT (NEUT) % 67.1 % (test code = 770-8) IMM GRAN % (test code 0.80 % = 8357212694) LYMPH % (test code = 21.4 % 736-9) MONO % (test code = 8.8 % 5905-5) EOS % (test code = 1.0 % 713-8) BASO % (test code = 0.9 % 706-2) GRAN MAT x10^3(ANC) 6.13 10*3/uL 1.99-6.95 (test code = 9459083553) IMM GRAN x10^3 (test 0.07 10*3/uL 0.00-0.06 H code = 5826751685) LYMPH x10^3 (test code 1.95 10*3/uL 1.09-3.23 = 731-0) MONO x10^3 (test code 0.80 10*3/uL 0.36-1.02 = 742-7) EOS x10^3 (test code = 0.09 10*3/uL 0.06-0.53 711-2) BASO x10^3 (test code 0.08 10*3/uL 0.01-0.09 = 704-7) Lab Interpretation Abnormal (test code = 35826-1) [facility] CenterXR CHEST 1 [id number] 05:13:38 No acute intrathoracic abnormality. Preliminary Report Dictated by Resident: Jose D Gray MD., have reviewed this study and agree withthe above report.PROCEDURE: XR CHEST 1 VW CLINICAL INDICATION: hypotension COMPARISON: Chest radiograph dated 11/09/2020. FINDINGS: Right chest wall ICD with leads terminating in the right atrium and rightventricle.The lungs are hyperi nflated. No focal consolidation is identified. Nopleural effusion or pneumothorax is seen. The cardiomediastinal silhouetteis within normal limits.No acute bony abnormality. [facility], Radiant Results Inft User - 11/22/2020 12:14 AM CDTPROCEDURE: XR CHEST 1 VWCLINICAL INDICATION: hypotension COMPARISON: Chest radiograph dated 11/09/2020.FINDINGS:Right chest wall ICD with leads terminating in the right atrium and rightventricle.The lungs are hyperinflated. No focal consolidation is identified. Nopleural effusion or pneumothorax is seen. The cardiomediastinal silhouetteis within normal limits.No acute bony a bnormality.IMPRESSIONNo acute intrathoracic abnormality.Preliminary Report Dictated by Resident: Jose D Damon MD., have reviewed this study and agree withthe above report.[facility] CenterADC / [facility] - DRUG SCREEN [id number] 01:26:42 Test Item Value Reference Range Interpretation Comments BENZO U (test code = Negative Negative 7988436769) SIDDHARTHA U (test code = Negative Negative 9870813513) AMPHET (test code = Negative Negative 0691495099) THC (test code = Negative Negative 6951390904) METHADONE (test code = Negative Negative 4155171285) Meth U (test code = Negative Negative 2293888120) OPIATES (test code = Negative Negative 6965970791) Cocaine Metabolite (test Negative Negative code = 2084279428) PROPOXY (test code = Negative Negative 3831671876) Tric U (test code = Negative Negative 2030567354) PCP (test code = Negative Negative 1669785820) OXYCOD (test code = Negative Negative 3263068065) NIDIA (test code = NIDIA) Urine Drug Cutoff Ranges Benzodiazepines: ? ? 150 ng/mLBarbiturates: ?200 ng/mLAmphetamine: ? 500 ng/mLCannabinoids: ?50 ?ng/mLMethadone: ? 200 ng/mLMethamphetamine: ? ? 500 ng/mL Opiates: ? 100 ng/mL or 2000 ng/mLCocaine: ? 150 ng/mLPropoxyphene: ?300 ng/mLTricyclics: ?300 ng/mLOxycodone: ? 100 ng/mLPCP: ? 25 ?ng/mL The results are to be used only for medical (i.e., treatment) purposes. Unconfirmed screening results must not be used for non-medical purposes (e.g., employment testing, legal testing). Lab Interpretation (test Normal code = 73918-4) [facility] CenterUrinalysis2021-03-16 01:19:53 Test Item Value Reference Range Interpretation Comments APPEARANCE (test code = Clear Clear 1049133473) COLOR (test code = Yellow Yellow 3935598157) PH (test code = 4.8-8.0 8711644439) SP GRAVITY (test code = 1.003-1.030 5031100622) GLU U QUAL (test code = Normal Normal 5742756020) BLOOD (test code = Negative Negative 7250638310) KETONES (test code = Negative Negative 2154301849) PROTEIN (test code = Negative Negative 2887-8) UROBILIN (test code = Normal Normal 6974594280) BILIRUBIN (test code = Negative Negative 6653674281) NITRITE (test code = Negative Negative 3346301658) LEUK RICK (test code = Negative Negative 0697782555) RBC/HPF (test code = See_Comment [Autom ated message] 1301553971) The system Training Advisor generated this result transmitted ref erence range: 0 - 3 HP F. The reference range was not used to int erpret this result as normal/abnormal . WBC/HPF (test code = See_Comment [Autom ated message] 0676050462) The system Training Advisor generated this result transmitted ref erence range: 0 - 5 HP F. The reference range was not used to int erpret this result as normal/abnormal . BACTERIA (test code = Negative Negative 7241082396) MUCOUS (test code = Slight Negative LPF A 0398775904) SQ EPITH (test code = <1 HPF 0481967288) HYAL CAST (test code = See_Comment H [Aut omated message] 0356857179) The system Training Advisor generated this result transmitted ref erence range: <=2 LPF. The reference range was not used to int erpret this result as normal/abnormal . Lab Interpretation (test Abnormal code = 62659-5) [facility] CenterSALICYLATE2021-03-16 01:04:56 Test Item Value Reference Range Interpretation Comments SALICYLATE (test code <10 mg/L = 8181387072) NIDIA (test code = NIDIA) Therapeutic Range: ? Analgesic and Antipyretic Use ? 20-100 mg/L ? ? Anti-Inflammatory Use ? 100-250 mg/L Toxic Range: ? Greater than 300 mg/L [facility] CenterACETAMINOPHEN2021-03-16 01:04:50 Test Item Value Reference Range Interpretation Comments ACETAMINOP (test code = <10.0 10.0-30.0 L 3895007541) NIDIA (test code = NIDIA) Toxic: Greater than 200 ug/mL @ 4 hour post ingestion or greater than 50 ug/mL @ 12 hour post ingestion Lab Interpretation (test Abnormal code = 08677-2) [facility] CenterCBC with [id number] 00:37:44 Test Item Value Reference Range Interpretation Comments WBC (test code = See_Comment H [Automated 9690-2) message] The sy stem which generated this result transmitted reference range : 4.20 - 10.70 10*3/?L. The reference range was not used to interpret this result as normal/abnormal . RBC (test code = See_Comment [Automated 845-8) message] The sy stem which generated this result transmitted reference range : 4.26 - 5.52 10*6/?L. The reference range was not used to interpret this result as normal/abnormal . HGB (test code = 15.1 g/dL 12.2-16.4 718-7) HCT (test code = 44.6 % 38.4-49.3 4544-3) MCV (test code = 88.0 fL 81.7-95.6 787-2) MCH (test code = 29.8 pg 26.1-32.7 785-6) MCHC (test code = 33.9 g/dL 31.2-35.0 786-4) RDW-SD (test code = 41.8 fL 38.5-51.6 41270-7) RDW-CV (test code = 13.0 % 12.1-15.4 788-0) PLT (test code = See_Comment [Automated 777-3) message] The sy stem which generated this result transmitted reference range : 150 - 328 10*3/ ?L. The reference r tin was not used to interpret this result as normal/abnormal . MPV (test code = 10.6 fL 9.8-13.0 16635-6) NRBC/100 WBC (test See_Comment [Automat ed code = 1914115510) message] The system which generated this result transmitted reference range : 0.0 - 10.0 /100 WBCs. The refer ence range was not u sed to interpret th is result as normal/abnormal . NRBC x10^3 (test code <0.01 See_Comment [Auto mated = 7686246731) message] The s ystem which generated this result transmitted reference range : 10*3/?L. The reference range was not used to interpret this result as normal/abnormal . GRAN MAT (NEUT) % 60.6 % (test code = 770-8) IMM GRAN % (test code 0.70 % = 1831835496) LYMPH % (test code = 30.2 % 736-9) MONO % (test code = 6.7 % 5905-5) EOS % (test code = 1.1 % 713-8) BASO % (test code = 0.7 % 706-2) GRAN MAT x10^3(ANC) 9.12 10*3/uL 1.99-6.95 H (test code = 8685694455) IMM GRAN x10^3 (test 0.10 10*3/uL 0.00-0.06 H code = 2865550511) LYMPH x10^3 (test code 4.54 10*3/uL 1.09-3.23 H = 731-0) MONO x10^3 (test code 1.00 10*3/uL 0.36-1.02 = 742-7) EOS x10^3 (test code = 0.16 10*3/uL 0.06-0.53 711-2) BASO x10^3 (test code 0.10 10*3/uL 0.01-0.09 H = 704-7) Lab Interpretation Abnormal (test code = 77637-5) [facility] CenterFR [id number] 00:31:05 Test Item Value Reference Range Interpretation Comments FREE T4 (test code = See_Comment [Autom ated message] 4819321636) The system Training Advisor generated this result transmitted ref erence range: 0.78 - 2 .20 ng/dL:. The ref erence range was not u sed to interpret this result as normal/abnor mal. Lab Interpretation (test Normal code = 96564-2) [facility] CenterETHANOL2021-03-16 00:21:56 Test Item Value Reference Range Interpretation Comments ALCOHOL (test code = <10 mg/dL 0273714146) NIDIA (test code = NIDIA) <10 Utbqwvyi16-114 Toxic>100 Depression of SURGICAL CONSULTANT>400 Fatalities Reported [facility] CenterHepatic Function Panel (ALB, T.PRO, BILI T, BU/BC, ALT, AST, ALK PHOS)2020-11-22 00:15:04 Test Item Value Reference Range Interpretation Comments TOTAL BILI (test code = 5679194409) 0.7 mg/dL 0.1-1.1 BILI UNCON (test code = 0563939153) 0.6 mg/dL 0.1-1.1 BILI CONJ (test code = 1806090548) 0.0 mg/dL 0.0-0.3 T PROTEIN (test code = 2923687246) 6.5 g/dL 6.3-8.2 ALBUMIN (test code = 3178706526) 3.9 g/dL 3.5-5.0 ALK PHOS (test code = 9738487367) 97 U/L 34-122 ALTv (test code = 1742-6) 17 U/L 5-50 AST(SGOT) (test code = 2483643010) 21 U/L 13-40 Lab Interpretation (test code = Normal 11207-8) [facility] CenterCOVID-19 (ID NOW RAPID TESTING)2020-11-22 00:15:04 Test Item Value Reference Range Interpretation Comments SARS-CoV-2 Rapid ID NOW Not Detected Not Detected (test code = 53113-5) NIDIA (test code = NIDIA) ID NOW COVID-19 Assay is an isothermal nucleic acid amplification test intended for the qualitative detection of nucleic acid from SARS-CoV-2 viral RNA in nasopharyngeal (STEMMING MACHINE OPERATOR) specimens. It is used under Emergency Use Authorization (EUA) by FDA. The limit of detection (LOD) of the assay is 125 Genome Equivalents/mL. A positive result is indicative of the presence of SARS-CoV-2 RNA. ?Clinical correlation with patient history and other diagnostic information is necessary to determine patient infection status. A negative (Not Detected) result does not preclude SARS-CoV-2 infection. In patients with clinical symptoms and other tests that are consistent with SARS-CoV-2 infection, negative results should be treated as presumptive negative and a new specimen should be tested with alternative PCR molecular test. Invalid: Please collect a new specimen for repeat patient testing if clinically indicated. Lab Interpretation Normal (test code = 18198-1) [facility] CenterTrpatricia [id number] 23:57:59 Test Item Value Reference Range Interpretation Comments TROPONIN I (test <0.012 See_Comment [Automated code = 6899083118) message] The system which generated this result transmitted reference range : <=0.034 ng/mL. The reference range was not used to interpr et this result as normal/abnormal . NIDIA (test code = Equal or Less than NIDIA) 0.034 ng/ml---Normal ?Note: Cardiac troponin begins to rise 3-4 hours after the onset of ischemia. Repeat in 4-6 hours if the sample was drawn within 3-4 hours of the onset of the symptom and found normal. Between 0.035 and 0.120 ng/mL--- Borderline. Questionable myocardial injury or necrosis ? ?Note: Serial measurement may be necessary to confirm or exclude the diagnosis of myocardial injury or necrosis; Clinical correlation (symptoms, EKGs, imaging studies, and others) required; Repeat in 4-6 hours if clinically indicated. ? Equal or Higher than 0.121 ng/mL---Abnormal. Myocardial Injury or Necrosis Likely ? Biotin has been reported to cause a negative bias, interpret results relative to patient's use of biotin. ? Lab Interpretation Normal (test code = 66777-8) [facility] CenterN-TERMINAL [id number] 23:54:56 Test Item Value Reference Range Interpretation Comments NT-proBNP (test code 114 pg/mL See_Comment [Autom ated = 6854006212) message] The system which generated this result transmitted reference range : <=125. The reference range was not used to interpret this result as normal/abnormal . NIDIA (test code = NIDIA) Biotin has been reported to cause a negative bias, interpret results relative to patient's use of biotin. Lab Interpretation Normal (test code = 02355-5) [facility] CenterMAGNESIUM2021-03-15 23:45:59 Test Item Value Reference Range Interpretation Comments MAGNESIUM (test code = 3861403630) 1.8 mg/dL 1.7-2.4 Lab Interpretation (test code = Normal 29998-8) [facility] CenterBasi Metabolic Panel (NA, K, CL, CO2, GLUCOSE, BUN, CREATININE, CA)2020-11-21 23:45:39 Test Item Value Reference Range Interpretation Comments NA (test code = 134 mmol/L 135-145 L 9261304430) K (test code = 4.0 mmol/L 3.5-5.0 5188729947) CL (test code = 102 mmol/L 98-108 7337744679) CO2 TOTAL (test code = 24 mmol/L 23-31 5761310538) AGAP (test code = 2-16 9732015401) BUN (test code = 13 mg/dL 7-23 3181950352) GLUCOSE (test code = 179 mg/dL 70-110 H 6649636178) CREATININE (test code = 1.11 mg/dL 0.60-1.25 2581138916) CALCIUM (test code = 8.8 mg/dL 8.6-10.6 3411189119) eGFR Calculation mL/min/1.73m2 (Non-) (test code = 5186039562) eGFR Calculation mL/min/1.73m2 () (test code = 6375375480) NIDIA (test code = NIDIA) Association of Glomerular Filtration Rate (GFR) and Staging of Kidney Disease* + --+ --+ ------+| GFR (mL/min/1.73 m2) ?| With Kidney Damage ?| ?Without Kidney Damage+ --------+ --------+ +| ?>90 ?| ?Stage one ?| ? Normal ?+ ---+ ---+ -------+| ?60-89 ?| ?Stage two ?| ? Decreased GFR ? + --+ --+ ------+| ?30-59 ?| ?Stage three ?| ? Stage three ? + --+ --+ ------+| ?15-29 ?| ?Stage four ? | ? Stage four ?+ ---+ ---+ -------+| ?<15 (or dialysis) ? ?| ?Stage five ? | ? Stage five ?+ ---+ ---+ -------+ *Each stage assumes the associated GFR level has been in effect for at least three months. ?Stages 1 to 5, with or without kidney disease, indicate chronic kidney disease. Notes: Determination of stages one and two (with eGFR >59mL/min/1.73 m2) requires estimation of kidney damage for at least three months as defined by structural or functional abnormalities of the kidney, manifested by either:Pathological abnormalities or Markers of kidney damage (including abnormalities in the composition of the blood or urine or abnormalities in imaging tests). Lab Interpretation Abnormal (test code = 07752-1) [facility] CenterLipase [id number] 23:45:17 Test Item Value Reference Range Interpretation Comments LIPASE (test code = 9239986708) 49 U/L 0-220 Lab Interpretation (test code = Normal 15667-5) [facility] CenterCREATINE [id number] 23:44:57 Test Item Value Reference Range Interpretation Comments CK (test code = 2050078868) 52 U/L 33-194 Lab Interpretation (test code = Normal 29231-1) [facility] CenteraPTT2021-03-15 23:42:15 Test Item Value Reference Range Interpretation Comments APTT Patient (test See_Comment L [Automat ed code = 3173-2) message] The system which generated this result transmitted reference range : 23 - 38 Seconds . The reference range was not used to interpr et this result as normal/abnormal . NIDIA (test code = NIDIA) The [facility] patient population mean normal value for aPTT is 30 seconds. Lab Interpretation Abnormal (test code = 02453-3) [facility] CenterProthrombin Time (PT) / [id number] 23:40:14 Test Item Value Reference Range Interpretation Comments PROTIME PATIENT (test See_Comment [Auto mated message] code = 5964-2) The system wh ich generated this result transmitted ref erence range: 12.0 - 1 4.7 Seconds. The re ference range was not u sed to interpret this result as normal/abnor mal. INR (test code = 6301-6) Nor mal INR <1.1; Warfarin Therap eutic range 2.0 to 3. 0 or 2.5 to 3.5, dep ending upon the indica tions. Lab Interpretation (test Normal code = 26779-6) [facility] + LACTIC [id number] 23:39:54 Test Item Value Reference Range Interpretation Comments PH (test code = 7.32-7.42 H 6106498625) PCO2 ALLEN (test code = See_Comment L [Auto mated 3611011490) message] The sy stem which generated this result transmitted reference range : 41 - 51 mmHg. The reference range was not used to interpret this result as normal/abnormal . PO2 ALLEN (test code = See_Comment H [Autom ated 3195460024) message] The sy stem which generated this result transmitted reference range : 25 - 40 mmHg. The reference range was not used to interpret this result as normal/abnormal . HCO3 ALLEN (test code = See_Comment L [Auto mated 2530652487) message] The sy stem which generated this result transmitted reference range : 24 - 28 mEq/L. The reference range was not used to interpret this result as normal/abnormal . AC VBE(BEAKER) (test mEq/L code = 4203496094) THB ALLEN (test code = 15.9 g/dL 13.5-18.0 9270896221) %O2HB ALLEN (test code = 79.7 % 52.0-63.0 H 8940480165) %COHB ALLEN (test code = 6.1 % 0.0-1.5 H 3115565750) %METHB ALLEN (test code = 0.2 % 0.4-1.5 L 5060355352) VOL%O2 ALLEN (test code = 17.7 % 6.0-12.0 H 8413289452) NA (test code = 136 mmol/L 135-145 0828276929) K+ (test code = 3.7 mmol/L 3.5-5.0 3448428767) AC CA IONZ (test code = 4.20 mg/dL 4.50-5.30 L 9224652561) GLUCOSE (test code = 184 mg/dL 70-110 H 6022178293) LACTIC ACID (test code 2.04 mmol/L 0.50-2.20 = 3591997566) Lab Interpretation Abnormal (test code = 72978-2) [facility] NOW RAPID TESTING)2020-11-09 20:16:00 Test Item Value Reference Range Interpretation Comments SARS-CoV-2 Rapid ID NOW Not Detected Not Detected (test code = 94903-7) NIDIA (test code = NIDIA) ID NOW COVID-19 Assay is an isothermal nucleic acid amplification test intended for the qualitative detection of nucleic acid from SARS-CoV-2 viral RNA in nasopharyngeal (STEMMING MACHINE OPERATOR) specimens. It is used under Emergency Use Authorization (EUA) by FDA. The limit of detection (LOD) of the assay is 125 Genome Equivalents/mL. A positive result is indicative of the presence of SARS-CoV-2 RNA. ?Clinical correlation with patient history and other diagnostic information is necessary to determine patient infection status. A negative (Not Detected) result does not preclude SARS-CoV-2 infection. In patients with clinical symptoms and other tests that are consistent with SARS-CoV-2 infection, negative results should be treated as presumptive negative and a new specimen should be tested with alternative PCR molecular test. Invalid: Please collect a new specimen for repeat patient testing if clinically indicated. Lab Interpretation Normal (test code = 08288-8) [facility] 1 [id number] 18:57:38 1. No radiographic evidence of acute cardiopulmonary process.2. Increased opacities in the lung bases probably represent chronicfibrosis/ Preliminary Report Dictated by Resident: Danny Prado MD., have reviewed this study and agree with the abovereport.EXAM: XR CHEST 1 VW COMPARISON: 10/03/2020 HISTORY: dizziness FINDINGS: Devices: Right cardiac pacemaker with lead wires appear intact. Lungs: Lungs are hyperaerated. Increased lung markings are seen morepronounced in the lung bases.. No pleural effusion or pneumothorax isidentified. Heart/Mediastinum: The cardiomediastinal silhouetteis normal in size. Bones: No acute osseous abnormality is seen. [facility], Radiant Results Inft User - 11/09/2020 12:58 PM CSTEXAM: XR CHEST 1 VWCOMPARISON: 10/03/2020HISTORY: dizziness FINDINGS:Devices: Right cardiac pacemaker with lead wires appear intact.Lungs: Lungs are hyperaerated. Increased lung markings are seen morepronounced in the lung bases.. No pleural effusion or pneumothorax isidentified.Heart/Mediastinum: The cardiomediastinal silhouette is normal in size.Bones: No acute osseous abnormality is seen.IMPRESSION1. No radiographic evidence of acute cardiopulmonary process.2. Increased opacities in the lung bases probably represent chronicfibrosis/Preliminary Report Dictated by Resident: Danny Andres MD., have reviewed this study and agree with the abovereport.[facility] CenterTroponin [id number] 18:43:00 Test Item Value Reference Range Interpretation Comments TROPONIN I (test 0.003 ng/mL See_Comment [Automated code = 2039749271) message] The system which generated this result transmitted reference range : <=0.034. The reference range was not used to interpret this result as normal/abnormal . NIDIA (test code = Equal or Less than NIDIA) 0.034 ng/ml---Normal ?Note: Cardiac troponin begins to rise 3-4 hours after the onset of ischemia. Repeat in 4-6 hours if the sample was drawn within 3-4 hours of the onset of the symptom and found normal. Between 0.035 and 0.120 ng/mL--- Borderline. Questionable myocardial injury or necrosis ? ?Note: Serial measurement may be necessary to confirm or exclude the diagnosis of myocardial injury or necrosis; Clinical correlation (symptoms, EKGs, imaging studies, and others) required; Repeat in 4-6 hours if clinically indicated. ? Equal or Higher than 0.121 ng/mL---Abnormal. Myocardial Injury or Necrosis Likely ? Biotin has been reported to cause a negative bias, interpret results relative to patient's use of biotin. ? Lab Interpretation Normal (test code = 02013-9) [facility] CenterN-TERMINAL [id number] 18:39:00 Test Item Value Reference Range Interpretation Comments NT-proBNP (test code 103 pg/mL See_Comment [Autom ated = 6998065474) message] The system which generated this result transmitted reference range : <=125. The reference range was not used to interpret this result as normal/abnormal . NIDIA (test code = NIDIA) Biotin has been reported to cause a negative bias, interpret results relative to patient's use of biotin. Lab Interpretation Normal (test code = 10009-3) [facility] CenterCOMP. METABOLIC PANEL ([id number])2020-11-09 18:31:00 Test Item Value Reference Range Interpretation Comments NA (test code = 133 mmol/L 135-145 L 7059072899) K (test code = 4.2 mmol/L 3.5-5 6906959765) CL (test code = 97 mmol/L 98-108 L 3434671953) CO2 TOTAL (test code = 29 mmol/L 23-31 5487996821) AGAP (test code = 2-16 0800238957) BUN (test code = 16 mg/dL 7-23 3812016043) GLUCOSE (test code = 306 mg/dL 70-110 H 1541767292) CREATININE (test code = 1.07 mg/dL 0.6-1.25 8930669634) TOTAL BILI (test code = 0.3 mg/dL 0.1-1.1 3223342544) CALCIUM (test code = 8.9 mg/dL 8.6-10.6 0070484167) T PROTEIN (test code = 6.6 g/dL 6.3-8.2 3610459545) ALBUMIN (test code = 4.0 g/dL 3.5-5 0934002233) ALK PHOS (test code = 83 U/L 34-122 1046720440) ALTv (test code = 17 U/L 5-50 1742-6) AST(SGOT) (test code = 18 U/L 13-40 1252589630) eGFR Calculation mL/min/1.73m2 (Non-) (test code = 2754648777) eGFR Calculation mL/min/1.73m2 () (test code = 5881874511) NIDIA (test code = NIDIA) Association of Glomerular Filtration Rate (GFR) and Staging of Kidney Disease* + --+ --+ ------+| GFR (mL/min/1.73 m2) ?| With Kidney Damage ?| ?Without Kidney Damage+ --------+ --------+ +| ?>90 ?| ?Stage one ?| ? Normal ?+ ---+ ---+ -------+| ?60-89 ?| ?Stage two ?| ? Decreased GFR ? + --+ --+ ------+| ?30-59 ?| ?Stage three ?| ? Stage three ? + --+ --+ ------+| ?15-29 ?| ?Stage four ? | ? Stage four ?+ ---+ ---+ -------+| ?<15 (or dialysis) ? ?| ?Stage five ? | ? Stage five ?+ ---+ ---+ -------+ *Each stage assumes the associated GFR level has been in effect for at least three months. ?Stages 1 to 5, with or without kidney disease, indicate chronic kidney disease. Notes: Determination of stages one and two (with eGFR >59mL/min/1.73 m2) requires estimation of kidney damage for at least three months as defined by structural or functional abnormalities of the kidney, manifested by either:Pathological abnormalities or Markers of kidney damage (including abnormalities in the composition of the blood or urine or abnormalities in imaging tests). Lab Interpretation Abnormal (test code = 91468-7) [facility] with [id number] 18:22:00 Test Item Value Reference Range Interpretation Comments WBC (test code = See_Comment H [Automated 6690-2) message] The system which generated this result transmit sadaf reference range : 4.20 - 10.70 10*3/?L. The reference range was not used to interpret this result as normal/abnormal . RBC (test code = See_Comment [Automated 789-8) message] The system which generated this result transmit sadaf reference range : 4.26 - 5.52 10*6/?L. The reference range was not used to interpret this result as normal/abnormal . HGB (test code = 14.8 g/dL 12.2-16.4 718-7) HCT (test code = 41.7 % 38.4-49.3 4544-3) MCV (test code = 87.6 fL 81.7-95.6 787-2) MCH (test code = 31.1 pg 26.1-32.7 785-6) MCHC (test code = 35.5 g/dL 31.2-35 H 786-4) RDW-SD (test code = 41.6 fL 38.5-51.6 86361-5) RDW-CV (test code = 13.0 % 12.1-15.4 788-0) PLT (test code = See_Comment [Automated 777-3) message] The system which generated this result transmit sadaf reference range : 150 - 328 10*3/ ?L. The reference range was not u sed to interpret th is result as normal/abnormal . MPV (test code = 10.4 fL 9.8-13 74713-4) NRBC/100 WBC (test See_Comment [Automat ed code = 7490764079) message] The system which generated this result transmit sadaf reference range : 0.0 - 10.0 /100 WBCs. The reference range was not used to interpret this result as normal/abnormal . NRBC x10^3 (test code <0.01 See_Comment [Auto mated = 5210289568) message] The system which generated this result transmit sadaf reference range : 10*3/?L. The reference range was not used to interpret this result as normal/abnormal . GRAN MAT (NEUT) % 79.5 % (test code = 770-8) IMM GRAN % (test code 0.60 % = 8355220895) LYMPH % (test code = 13.1 % 736-9) MONO % (test code = 5.4 % 5905-5) EOS % (test code = 1.0 % 713-8) BASO % (test code = 0.4 % 706-2) GRAN MAT x10^3(ANC) 10.70 10*3/uL 1.99-6.95 H (test code = 3382662803) IMM GRAN x10^3 (test 0.08 10*3/uL 0-0.06 H code = 9313034852) LYMPH x10^3 (test code 1.76 10*3/uL 1.09-3.23 = 731-0) MONO x10^3 (test code 0.72 10*3/uL 0.36-1.02 = 742-7) EOS x10^3 (test code = 0.13 10*3/uL 0.06-0.53 711-2) BASO x10^3 (test code 0.05 10*3/uL 0.01-0.09 = 704-7) Lab Interpretation Abnormal (test code = 05786-1) [facility] GLUCOSE (AUTOMATED)2020-10-05 18:10:00 Test Item Value Reference Range Interpretation Comments POCT GLU (test code = 8774955532) 186 mg/dL 70-110 H Lab Interpretation (test code = Abnormal 97729-5) [facility] CenterAMMAMSTERDAM, [id number] 17:11:00 Test Item Value Reference Range Interpretation Comments AMMONIA (test code = 5375573238) <9 9-33 L Lab Interpretation (test code = Abnormal 01076-9) [facility] GLUCOSE (AUTOMATED)2020-10-05 14:01:00 Test Item Value Reference Range Interpretation Comments POCT GLU (test code = 8595243262) 214 mg/dL 70-110 H Lab Interpretation (test code = Abnormal 97629-1) [facility] Metabolic Panel (NA, K, CL, CO2, GLUCOSE, BUN, CREATININE, CA)2020-10-05 11:31:00 Test Item Value Reference Range Interpretation Comments NA (test code = 136 mmol/L 135-145 4222974255) K (test code = 4.1 mmol/L 3.5-5 5052095722) CL (test code = 108 mmol/L 98-108 7434260145) CO2 TOTAL (test code = 19 mmol/L 23-31 L 7740360139) AGAP (test code = 2-16 9983518448) BUN (test code = 15 mg/dL 7-23 2358520908) GLUCOSE (test code = 155 mg/dL 70-110 H 8924413681) CREATININE (test code = 0.76 mg/dL 0.6-1.25 8178561774) CALCIUM (test code = 8.7 mg/dL 8.6-10.6 4476557878) eGFR Calculation mL/min/1.73m2 (Non-) (test code = 3099696405) eGFR Calculation mL/min/1.73m2 () (test code = 1185376943) NIDIA (test code = NIDIA) Association of Glomerular Filtration Rate (GFR) and Staging of Kidney Disease* + --+ --+ ------+| GFR (mL/min/1.73 m2) ?| With Kidney Damage ?| ?Without Kidney Damage+ --------+ --------+ +| ?>90 ?| ?Stage one ?| ? Normal ?+ ---+ ---+ -------+| ?60-89 ?| ?Stage two ?| ? Decreased GFR ? + --+ --+ ------+| ?30-59 ?| ?Stage three ?| ? Stage three ? + --+ --+ ------+| ?15-29 ?| ?Stage four ? | ? Stage four ?+ ---+ ---+ -------+| ?<15 (or dialysis) ? ?| ?Stage five ? | ? Stage five ?+ ---+ ---+ -------+ *Each stage assumes the associated GFR level has been in effect for at least three months. ?Stages 1 to 5, with or without kidney disease, indicate chronic kidney disease. Notes: Determination of stages one and two (with eGFR >59mL/min/1.73 m2) requires estimation of kidney damage for at least three months as defined by structural or functional abnormalities of the kidney, manifested by either:Pathological abnormalities or Markers of kidney damage (including abnormalities in the composition of the blood or urine or abnormalities in imaging tests). Lab Interpretation Abnormal (test code = 84530-5) [facility] with [id number] 10:58:00 Test Item Value Reference Range Interpretation Comments WBC (test code = See_Comment [Automated message] 6690-2) The system Training Advisor generated this result transmitted ref erence range: 4.20 - 1 0.70 10*3/?L. The re ference range was not u sed to interpret this result as normal/abnor mal. RBC (test code = See_Comment [Automated message] 789-8) The system Training Advisor generated this result transmitted ref erence range: 4.26 - 5 .52 10*6/?L. The re ference range was not u sed to interpret this result as normal/abnor mal. HGB (test code = 14.8 g/dL 12.2-16.4 718-7) HCT (test code = 43.6 % 38.4-49.3 4544-3) MCV (test code = 90.8 fL 81.7-95.6 787-2) MCH (test code = 30.8 pg 26.1-32.7 785-6) MCHC (test code = 33.9 g/dL 31.2-35 786-4) RDW-SD (test code 40.2 fL 38.5-51.6 = 60016-8) RDW-CV (test code 12.1 % 12.1-15.4 = 788-0) PLT (test code = See_Comment [Automated message] 557-3) The system Training Advisor generated this result transmitted ref erence range: 150 - 32 8 10*3/?L. The re ference range was not u sed to interpret this result as normal/abnor mal. MPV (test code = 10.8 fL 9.8-13 20168-3) NRBC/100 WBC (test See_Comment [Automat ed message] code = 4991466065) The [employer] which generated this result transmitted ref erence range: 0.0 - 10 .0 /100 WBCs. The refer ence range was not u sed to interpret this result as normal/abnor mal. NRBC x10^3 (test <0.01 See_Comment [Automated message] code = 9528274142) The syste m which generated this result transmitted ref erence range: 10*3/?L. The reference range was not used to interpr et this result as normal/abnormal . GRAN MAT (NEUT) % 61.1 % (test code = 770-8) IMM GRAN % (test 0.60 % code = 0946645659) LYMPH % (test code 27.7 % = 736-9) MONO % (test code 8.8 % = 5905-5) EOS % (test code = 1.1 % 713-8) BASO % (test code 0.7 % = 706-2) GRAN MAT 5.77 10*3/uL 1.99-6.95 x10^3(ANC) (test code = 6518427956) IMM GRAN x10^3 0.06 10*3/uL 0-0.06 (test code = 2115151713) LYMPH x10^3 (test 2.62 10*3/uL 1.09-3.23 code = 731-0) MONO x10^3 (test 0.83 10*3/uL 0.36-1.02 code = 742-7) EOS x10^3 (test 0.10 10*3/uL 0.06-0.53 code = 711-2) BASO x10^3 (test 0.07 10*3/uL 0.01-0.09 code = 704-7) [facility] / [facility] - DRUG SCREEN [id number] 00:36:00 Test Item Value Reference Range Interpretation Comments BENZO U (test code = Negative Negative 6849721264) SIDDHARTHA U (test code = Negative Negative 9358076896) AMPHET (test code = Negative Negative 3580565799) THC (test code = Negative Negative 5022986232) METHADONE (test code = Negative Negative 0140498446) Meth U (test code = Negative Negative 3691041125) OPIATES (test code = Negative Negative 8872687762) Cocaine Metabolite (test Negative Negative code = 1614989051) PROPOXY (test code = Negative Negative 1069005578) Tric U (test code = Negative Negative 8211436321) PCP (test code = Negative Negative 3127821502) OXYCOD (test code = Negative Negative 8161772092) NIDIA (test code = NIDIA) Urine Drug Cutoff Ranges Benzodiazepines: ? ? 150 ng/mLBarbiturates: ?200 ng/mLAmphetamine: ? 500 ng/mLCannabinoids: ?50 ?ng/mLMethadone: ? 200 ng/mLMethamphetamine: ? ? 500 ng/mL Opiates: ? 100 ng/mL or 2000 ng/mLCocaine: ? 150 ng/mLPropoxyphene: ?300 ng/mLTricyclics: ?300 ng/mLOxycodone: ? 100 ng/mLPCP: ? 25 ?ng/mL The results are to be used only for medical (i.e., treatment) purposes. Unconfirmed screening results must not be used for non-medical purposes (e.g., employment testing, legal testing). Lab Interpretation (test Normal code = 09626-6) [facility] GLUCOSE (AUTOMATED)2020-10-04 22:56:00 Test Item Value Reference Range Interpretation Comments POCT GLU (test code = 4752772468) 133 mg/dL 70-110 H Lab Interpretation (test code = Abnormal 21492-3) [facility] GLUCOSE (AUTOMATED)2020-10-04 18:32:00 Test Item Value Reference Range Interpretation Comments POCT GLU (test code = 1371718899) 250 mg/dL 70-110 H Lab Interpretation (test code = Abnormal 94756-6) [facility] GLUCOSE (AUTOMATED)2020-10-04 14:13:00 Test Item Value Reference Range Interpretation Comments POCT GLU (test code = 1614470313) 136 mg/dL 70-110 H Lab Interpretation (test code = Abnormal 52994-3) [facility] (NA, K, CL, CO2, GLUCOSE, BUN, CREATININE, CA)2020-10-04 12:34:00 Test Item Value Reference Range Interpretation Comments NA (test code = 134 mmol/L 135-145 L 3251379700) K (test code = 4.2 mmol/L 3.5-5 5774600582) CL (test code = 103 mmol/L 98-108 9918947159) CO2 TOTAL (test code = 24 mmol/L 23-31 1390049334) AGAP (test code = 2-16 4912836211) BUN (test code = 15 mg/dL 7-23 1646145794) GLUCOSE (test code = 135 mg/dL 70-110 H 9426282046) CREATININE (test code = 0.92 mg/dL 0.6-1.25 9439741823) CALCIUM (test code = 8.7 mg/dL 8.6-10.6 0119220947) eGFR Calculation mL/min/1.73m2 (Non-) (test code = 3319431415) eGFR Calculation mL/min/1.73m2 () (test code = 3712580979) NIDIA (test code = NIDIA) Association of Glomerular Filtration Rate (GFR) and Staging of Kidney Disease* + --+ --+ ------+| GFR (mL/min/1.73 m2) ?| With Kidney Damage ?| ?Without Kidney Damage+ --------+ --------+ +| ?>90 ?| ?Stage one ?| ? Normal ?+ ---+ ---+ -------+| ?60-89 ?| ?Stage two ?| ? Decreased GFR ? + --+ --+ ------+| ?30-59 ?| ?Stage three ?| ? Stage three ? + --+ --+ ------+| ?15-29 ?| ?Stage four ? | ? Stage four ?+ ---+ ---+ -------+| ?<15 (or dialysis) ? ?| ?Stage five ? | ? Stage five ?+ ---+ ---+ -------+ *Each stage assumes the associated GFR level has been in effect for at least three months. ?Stages 1 to 5, with or without kidney disease, indicate chronic kidney disease. Notes: Determination of stages one and two (with eGFR >59mL/min/1.73 m2) requires estimation of kidney damage for at least three months as defined by structural or functional abnormalities of the kidney, manifested by either:Pathological abnormalities or Markers of kidney damage (including abnormalities in the composition of the blood or urine or abnormalities in imaging tests). Lab Interpretation Abnormal (test code = 31259-7) [facility] WITH [id number] 11:59:00 Test Item Value Reference Range Interpretation Comments WBC (test code = See_Comment [Automated 6690-2) message] The sy stem which generated this result transmitted reference range : 4.20 - 10.70 10*3/?L. The reference range was not used to interpret this result as normal/abnormal . RBC (test code = See_Comment [Automated 789-8) message] The sy stem which generated this result transmitted reference range : 4.26 - 5.52 10*6/?L. The reference range was not used to interpret this result as normal/abnormal . HGB (test code = 14.3 g/dL 12.2-16.4 718-7) HCT (test code = 41.9 % 38.4-49.3 4544-3) MCV (test code = 90.1 fL 81.7-95.6 787-2) MCH (test code = 30.8 pg 26.1-32.7 785-6) MCHC (test code = 34.1 g/dL 31.2-35 786-4) RDW-SD (test code = 39.8 fL 38.5-51.6 30909-6) RDW-CV (test code = 12.1 % 12.1-15.4 788-0) PLT (test code = See_Comment [Automated 777-3) message] The sy stem which generated this result transmitted reference range : 150 - 328 10*3/ ?L. The reference r tin was not used to interpret this result as normal/abnormal . MPV (test code = 10.4 fL 9.8-13 90325-0) NRBC/100 WBC (test See_Comment [Automat ed code = 6877560076) message] The system which generated this result transmitted reference range : 0.0 - 10.0 /100 WBCs. The refer ence range was not u sed to interpret th is result as normal/abnormal . NRBC x10^3 (test code <0.01 See_Comment [Auto mated = 2211019362) message] The s [employer] which generated this result transmitted reference range : 10*3/?L. The reference range was not used to interpret this result as normal/abnormal . GRAN MAT (NEUT) % 72.5 % (test code = 770-8) IMM GRAN % (test code 0.60 % = 4170348718) LYMPH % (test code = 17.1 % 736-9) MONO % (test code = 8.0 % 5905-5) EOS % (test code = 1.0 % 713-8) BASO % (test code = 0.8 % 706-2) GRAN MAT x10^3(ANC) 7.47 10*3/uL 1.99-6.95 H (test code = 6335577174) IMM GRAN x10^3 (test 0.06 10*3/uL 0-0.06 code = 1371527390) LYMPH x10^3 (test code 1.76 10*3/uL 1.09-3.23 = 731-0) MONO x10^3 (test code 0.82 10*3/uL 0.36-1.02 = 742-7) EOS x10^3 (test code = 0.10 10*3/uL 0.06-0.53 711-2) BASO x10^3 (test code 0.08 10*3/uL 0.01-0.09 = 704-7) Lab Interpretation Abnormal (test code = 10996-4) [facility] CenterETHANOL[facility] 09:49:00 Test Item Value Reference Range Interpretation Comments ALCOHOL (test code = <10 mg/dL 5318001853) NIDIA (test code = NIDIA) <10 Tapmxbul34-861 Toxic>100 Depression of SURGICAL CONSULTANT>400 Fatalities Reported [facility] 1 [id number] 04:23:11 No acute cardiopulmonary abnormality. Preliminary Report Dictated by Resident: Danyelle Manriquez MD., have reviewed this study and agree with theabove report.EXAM: XR CHEST 1 VWHISTORY: dizziness COMPARISON: Chest x-ray 08/03/2020 Technique: ?AP view radiograph of the chest FINDINGS: Right chest wall pacemaker with leads terminating in the right atrium andright ventricle. The lungs are clear. No focal consolidation, pleural effusion orpneumothorax is seen. The cardiac silhouette is normal in size. No acute bony abnormality. [facility], Radiant Results Inft User - 10/03/2020 10:24 PM CSTEXAM: XR CHEST 1 VWHISTORY: dizziness COMPARISON: Chest x-ray 08/03/2020Technique: AP view r adiograph of the chestFINDINGS:Right chest wall pacemaker with leads terminating in the right atriumandright ventricle.The lungs are clear. No focal consolidation, pleural effusion orpneumothorax is seen. The cardiac silhouette is normal in size.No acute bony abnormality.IMPRESSIONNo acute cardiopulmonary abnormality.Preliminary Report Dictated by Resident: Danyelle Hale MD., have reviewed this study and agree with theabove report. [facility] CenterURINALYSIS2021-01-26 02:03:00 Test Item Value Reference Range Interpretation Comments APPEARANCE (test code = Clear Clear 0188606602) COLOR (test code = Yellow Yellow 2400915816) PH (test code = 4.8-8.0 7758080366) SP GRAVITY (test code = 1.003-1.030 4469517935) GLU U QUAL (test code = 500 mg/dL Normal A 7447379174) BLOOD (test code = Negative Negative 0742405110) KETONES (test code = Negative Negative 5833751213) PROTEIN (test code = Negative Negative 2887-8) UROBILIN (test code = 4.0 mg/dL Normal A 3057372230) BILIRUBIN (test code = Negative Negative 9925297918) NITRITE (test code = Negative Negative 7040490031) LEUK RICK (test code = Negative Negative 1902119873) RBC/HPF (test code = <1 See_Comment [Autom ated message] 2468842457) The system Training Advisor generated this result transmit sadaf reference range : 0 - 3 HPF. The refe rence range was not u sed to interpret th is result as normal/abnormal . WBC/HPF (test code = See_Comment [Autom ated message] 0643347247) The system Training Advisor generated this result transmit sadaf reference range : 0 - 5 HPF. The refe rence range was not u sed to interpret th is result as normal/abnormal . BACTERIA (test code = Negative Negative 6737514387) MUCOUS (test code = Moderate Negative LPF A [id number]) SQ EPITH (test code = <1 HPF 2288859375) HYAL CAST (test code = See_Comment H [Aut omated message] 4198043024) The system Training Advisor generated this result transmit sadaf reference range : <=2 LPF. The refere nce range was not u sed to interpret th is result as normal/abnormal . Lab Interpretation (test Abnormal code = 80410-9) [facility] NOW RAPID TESTING)2020-10-04 01:12:00 Test Item Value Reference Range Interpretation Comments SARS-CoV-2 Rapid ID NOW Not Detected Not Detected (test code = 69509-3) NIDIA (test code = NIDIA) ID NOW COVID-19 Assay is an isothermal nucleic acid amplification test intended for the qualitative detection of nucleic acid from SARS-CoV-2 viral RNA in nasopharyngeal (STEMMING MACHINE OPERATOR) specimens. It is used under Emergency Use Authorization (EUA) by FDA. The limit of detection (LOD) of the assay is 125 Genome Equivalents/mL. A positive result is indicative of the presence of SARS-CoV-2 RNA. ?Clinical correlation with patient history and other diagnostic information is necessary to determine patient infection status. A negative (Not Detected) result does not preclude SARS-CoV-2 infection. In patients with clinical symptoms and other tests that are consistent with SARS-CoV-2 infection, negative results should be treated as presumptive negative and a new specimen should be tested with alternative PCR molecular test. Invalid: Please collect a new specimen for repeat patient testing if clinically indicated. Lab Interpretation Normal (test code = 14806-8) [facility] [id number] 00:48:00 Test Item Value Reference Range Interpretation Comments TROPONIN I (test <0.012 See_Comment [Automated code = 7239209672) message] The system which generated this result transmitted reference range : <=0.034 ng/mL. The reference range was not used to interpr et this result as normal/abnormal . NIDIA (test code = Equal or Less than NIDIA) 0.034 ng/ml---Normal ?Note: Cardiac troponin begins to rise 3-4 hours after the onset of ischemia. Repeat in 4-6 hours if the sample was drawn within 3-4 hours of the onset of the symptom and found normal. Between 0.035 and 0.120 ng/mL--- Borderline. Questionable myocardial injury or necrosis ? ?Note: Serial measurement may be necessary to confirm or exclude the diagnosis of myocardial injury or necrosis; Clinical correlation (symptoms, EKGs, imaging studies, and others) required; Repeat in 4-6 hours if clinically indicated. ? Equal or Higher than 0.121 ng/mL---Abnormal. Myocardial Injury or Necrosis Likely ? Biotin has been reported to cause a negative bias, interpret results relative to patient's use of biotin. ? Lab Interpretation Normal (test code = 41382-3) [facility]. METABOLIC PANEL (63494)2020-10-04 00:43:00 Test Item Value Reference Range Interpretation Comments NA (test code = 134 mmol/L 135-145 L 8747939906) K (test code = 4.0 mmol/L 3.5-5 9565110061) CL (test code = 95 mmol/L 98-108 L 3865354649) CO2 TOTAL (test code = 28 mmol/L 23-31 1353579996) AGAP (test code = 2-16 8934505956) BUN (test code = 15 mg/dL 7-23 0227536265) GLUCOSE (test code = 280 mg/dL 70-110 H 0985211783) CREATININE (test code = 1.27 mg/dL 0.6-1.25 H 5893087926) TOTAL BILI (test code = 0.7 mg/dL 0.1-1.7 0223055552) CALCIUM (test code = 8.8 mg/dL 8.6-10.6 5009360823) T PROTEIN (test code = 6.8 g/dL 6.3-8.2 1319584442) ALBUMIN (test code = 4.0 g/dL 3.5-5 7914496201) ALK PHOS (test code = 91 U/L 34-122 8782547822) ALTv (test code = 13 U/L 5-50 1742-6) AST(SGOT) (test code = 24 U/L 13-40 2856212627) eGFR Calculation mL/min/1.73m2 (Non-) (test code = 9833377535) eGFR Calculation mL/min/1.73m2 () (test code = 9816237827) NIDIA (test code = NIDIA) Association of Glomerular Filtration Rate (GFR) and Staging of Kidney Disease* + --+ --+ ------+| GFR (mL/min/1.73 m2) ?| With Kidney Damage ?| ?Without Kidney Damage+ --------+ --------+ +| ?>90 ?| ?Stage one ?| ? Normal ?+ ---+ ---+ -------+| ?60-89 ?| ?Stage two ?| ? Decreased GFR ? + --+ --+ ------+| ?30-59 ?| ?Stage three ?| ? Stage three ? + --+ --+ ------+| ?15-29 ?| ?Stage four ? | ? Stage four ?+ ---+ ---+ -------+| ?<15 (or dialysis) ? ?| ?Stage five ? | ? Stage five ?+ ---+ ---+ -------+ *Each stage assumes the associated GFR level has been in effect for at least three months. ?Stages 1 to 5, with or without kidney disease, indicate chronic kidney disease. Notes: Determination of stages one and two (with eGFR >59mL/min/1.73 m2) requires estimation of kidney damage for at least three months as defined by structural or functional abnormalities of the kidney, manifested by either:Pathological abnormalities or Markers of kidney damage (including abnormalities in the composition of the blood or urine or abnormalities in imaging tests). Lab Interpretation Abnormal (test code = 93045-9) [facility] CenterMAGNESIUM2021-01-26 00:36:00 Test Item Value Reference Range Interpretation Comments MAGNESIUM (test code = 9470276640) 1.7 mg/dL 1.7-2.4 Lab Interpretation (test code = Normal 38768-3) [facility] WITH [id number] 00:02:00 Test Item Value Reference Range Interpretation Comments WBC (test code = See_Comment H [Automated 6690-2) message] The system which generated this result transmit sadaf reference range : 4.20 - 10.70 10*3/?L. The reference range was not used to interpret this result as normal/abnormal . RBC (test code = See_Comment [Automated 789-8) message] The system which generated this result transmit sadaf reference range : 4.26 - 5.52 10*6/?L. The reference range was not used to interpret this result as normal/abnormal . HGB (test code = 15.1 g/dL 12.2-16.4 718-7) HCT (test code = 43.9 % 38.4-49.3 4544-3) MCV (test code = 88.9 fL 81.7-95.6 787-2) MCH (test code = 30.6 pg 26.1-32.7 785-6) MCHC (test code = 34.4 g/dL 31.2-35 786-4) RDW-SD (test code = 39.7 fL 38.5-51.6 08669-6) RDW-CV (test code = 12.2 % 12.1-15.4 788-0) PLT (test code = See_Comment [Automated 777-3) message] The system which generated this result transmit sadaf reference range : 150 - 328 10*3/ ?L. The reference range was not u sed to interpret th is result as normal/abnormal . MPV (test code = 10.7 fL 9.8-13 07710-9) NRBC/100 WBC (test See_Comment [Automat ed code = 0178295721) message] The system which generated this result transmit sadaf reference range : 0.0 - 10.0 /100 WBCs. The reference range was not used to interpret this result as normal/abnormal . NRBC x10^3 (test code <0.01 See_Comment [Auto mated = 0689650346) message] The system which generated this result transmit sadaf reference range : 10*3/?L. The reference range was not used to interpret this result as normal/abnormal . GRAN MAT (NEUT) % 87.7 % (test code = 770-8) IMM GRAN % (test code 0.70 % = 7402304951) LYMPH % (test code = 7.5 % 736-9) MONO % (test code = 3.5 % 5905-5) EOS % (test code = 0.1 % 713-8) BASO % (test code = 0.5 % 706-2) GRAN MAT x10^3(ANC) 12.69 10*3/uL 1.99-6.95 H (test code = 5650001951) IMM GRAN x10^3 (test 0.10 10*3/uL 0-0.06 H code = 5656617566) LYMPH x10^3 (test code 1.09 10*3/uL 1.09-3.23 = 731-0) MONO x10^3 (test code 0.51 10*3/uL 0.36-1.02 = 742-7) EOS x10^3 (test code = <0.03 0.06-0.53 L 711-2) BASO x10^3 (test code 0.07 10*3/uL 0.01-0.09 = 704-7) Lab Interpretation Abnormal (test code = 99184-5) [facility] CenterCT [facility] WO [id number] 23:35:09 No acute intracranial abnormality.EXAM: CT HEAD WO CONTRAST HISTORY: Head trauma, headache TECHNIQUE: CT of the head was performed without intravenous contrast.Sagittal and coronal reformats were generated. COMPARISON: None. FINDINGS: The ventricles and sulci are normal in caliber and configuration. Nohydrocephalus, midline shift or pathological extra-axial fluid collectionis present. The basal cisterns are unremarkable. There is no acute intracranial hemorrhage or significant mass effect. Noparenchymal attenuation abnormality. The henriquez-white matter differentiationis preserved. The mastoid air cells and paranasal air sinuses are clear. The calvariumand central skull base are unremarkable. [facility], Radiant Results Inft User - 10/03/2020 5:36 PM CSTEXAM: CT HEAD WO CONTRASTHISTORY: Head trauma, headache TECHNIQUE: CT of the head was performed without intravenous contrast.Sagittal and coronal reformats were generated.COMPARISON: None.FINDINGS: The ventricles and sulci are normal in caliber and configuration. Nohydrocephalus, midline shift or pathological extra- axial fluid collectionis present. The basal cisterns are unremarkable.There is no acute intracranial hemorrhage or significant mass effect. Noparenchymal attenuation abnormality. The henriquez-white matter differentiationis preserved.The mastoid air cells and paranasal air sinuses are clear. The calvariumand central skull base are unremarkable.IMPRESSIONNo acute intracranial abnormality. [facility] CenterUrinalysis2020-12-24 02:04:00 Test Item Value Reference Range Interpretation Comments APPEARANCE (test code = Clear Clear 4405170112) COLOR (test code = Yellow Yellow 4135149592) PH (test code = 4.8-8.0 0722182337) SP GRAVITY (test code = 1.003-1.030 2982583967) GLU U QUAL (test code = Normal Normal 7170247336) BLOOD (test code = Negative Negative 3504322870) KETONES (test code = Negative Negative 9468425498) PROTEIN (test code = Negative Negative 2887-8) UROBILIN (test code = Normal Normal 6669332816) BILIRUBIN (test code = Negative Negative 4771508447) NITRITE (test code = Negative Negative 0411698496) LEUK RICK (test code = Negative Negative 5522360328) RBC/HPF (test code = <1 See_Comment [Autom ated message] 5254222377) The system Training Advisor generated this result transmitted ref erence range: 0 - 3 HP F. The reference range was not used to int erpret this result as normal/abnormal . WBC/HPF (test code = See_Comment [Autom ated message] 6977264353) The system Training Advisor generated this result transmitted ref erence range: 0 - 5 HP F. The reference range was not used to int erpret this result as normal/abnormal . BACTERIA (test code = Negative Negative 6849310334) MUCOUS (test code = Slight Negative LPF A 5830316060) HYAL CAST (test code = See_Comment H [Aut omated message] 0204655764) The system Training Advisor generated this result transmitted ref erence range: <=2 LPF. The reference range was not used to int erpret this result as normal/abnormal . Lab Interpretation (test Abnormal code = 83900-3) [facility] [id number] 02:02:00 Test Item Value Reference Range Interpretation Comments FREE T4 (test code = See_Comment [Autom ated message] 3909622696) The system Training Advisor generated this result transmitted ref erence range: 0.78 - 2 .20 ng/dL:. The ref erence range was not u sed to interpret this result as normal/abnor mal. Lab Interpretation (test Normal code = 79060-5) [facility] CenterACETAMINOPHEN2020-12-24 01:51:00 Test Item Value Reference Range Interpretation Comments ACETAMINOP (test code = <10.0 10-30 L 4777920688) NIDIA (test code = NIDIA) Toxic: Greater than 200 ug/mL @ 4 hour post ingestion or greater than 50 ug/mL @ 12 hour post ingestion Lab Interpretation (test Abnormal code = 77032-0) [facility] CenterSALICYLATE2020-12-24 01:51:00 Test Item Value Reference Range Interpretation Comments SALICYLATE (test code <10 mg/L = 7850155277) NIDIA (test code = NIDIA) Therapeutic Range: ? Analgesic and Antipyretic Use ? 20-100 mg/L ? ? Anti-Inflammatory Use ? 100-250 mg/L Toxic Range: ? Greater than 300 mg/L [facility] CenterETHANOL2020-12-24 01:50:00 Test Item Value Reference Range Interpretation Comments ALCOHOL (test code = <10 mg/dL 3300171904) NIDIA (test code = NIDIA) <10 [id number] Toxic>100 Depression of SURGICAL CONSULTANT>400 Fatalities Reported [facility] (NA, K, CL, CO2, GLUCOSE, BUN, CREATININE, CA)2020-09-01 01:46:00 Test Item Value Reference Range Interpretation Comments NA (test code = 138 mmol/L 135-145 0132496938) K (test code = 4.3 mmol/L 3.5-5 1464556319) CL (test code = 104 mmol/L 98-108 0919859636) CO2 TOTAL (test code = 25 mmol/L 23-31 2043797272) AGAP (test code = 2-16 5773823861) BUN (test code = 10 mg/dL 7-23 2029581137) GLUCOSE (test code = 137 mg/dL 70-110 H 3738992700) CREATININE (test code = 0.94 mg/dL 0.6-1.25 9797610474) CALCIUM (test code = 8.8 mg/dL 8.6-10.6 6587642208) eGFR Calculation mL/min/1.73m2 (Non-) (test code = 3670406770) eGFR Calculation mL/min/1.73m2 () (test code = 4623070988) NIDIA (test code = NIDIA) Association of Glomerular Filtration Rate (GFR) and Staging of Kidney Disease* + --+ --+ ------+| GFR (mL/min/1.73 m2) ?| With Kidney Damage ?| ?Without Kidney Damage+ --------+ --------+ +| ?>90 ?| ?Stage one ?| ? Normal ?+ ---+ ---+ -------+| ?60-89 ?| ?Stage two ?| ? Decreased GFR ? + --+ --+ ------+| ?30-59 ?| ?Stage three ?| ? Stage three ? + --+ --+ ------+| ?15-29 ?| ?Stage four ? | ? Stage four ?+ ---+ ---+ -------+| ?<15 (or dialysis) ? ?| ?Stage five ? | ? Stage five ?+ ---+ ---+ -------+ *Each stage assumes the associated GFR level has been in effect for at least three months. ?Stages 1 to 5, with or without kidney disease, indicate chronic kidney disease. Notes: Determination of stages one and two (with eGFR >59mL/min/1.73 m2) requires estimation of kidney damage for at least three months as defined by structural or functional abnormalities of the kidney, manifested by either:Pathological abnormalities or Markers of kidney damage (including abnormalities in the composition of the blood or urine or abnormalities in imaging tests). Lab Interpretation Abnormal (test code = 55048-8) [facility] CenterHepatic Function Panel (ALB, T.PRO, BILI T, BU/BC, ALT, AST, ALK PHOS)2020-09-01 01:46:00 Test Item Value Reference Range Interpretation Comments TOTAL BILI (test code = 3843853955) 0.3 mg/dL 0.1-1.1 BILI UNCON (test code = 0575361060) 0.3 mg/dL 0.1-1.1 BILI CONJ (test code = 0426448825) 0.0 mg/dL 0-0.3 T PROTEIN (test code = 5789190025) 6.3 g/dL 6.3-8.2 ALBUMIN (test code = 8276710895) 3.7 g/dL 3.5-5 ALK PHOS (test code = 0314836119) 88 U/L 34-122 ALTv (test code = 1742-6) 9 U/L 5-50 AST(SGOT) (test code = 2830380309) 17 U/L 13-40 Lab Interpretation (test code = Normal 70894-0) [facility] CenterCREATINE [id number] 01:46:00 Test Item Value Reference Range Interpretation Comments CK (test code = 6155777065) 67 U/L 33-194 Lab Interpretation (test code = Normal 78817-9) [facility] / [facility] - DRUG SCREEN [id number] 01:45:00 Test Item Value Reference Range Interpretation Comments BENZO U (test code = Negative Negative 4185097079) SIDDHARTHA U (test code = Negative Negative 1022274054) AMPHET (test code = Negative Negative 6836563456) THC (test code = Negative Negative 9177671135) METHADONE (test code = Negative Negative 3937596431) Meth U (test code = Negative Negative 7506074153) OPIATES (test code = Negative Negative 4396293203) Cocaine Metabolite (test Negative Negative code = 4306977400) PROPOXY (test code = Negative Negative 0577662377) Tric U (test code = Negative Negative 3068792289) PCP (test code = Negative Negative 6229721109) OXYCOD (test code = Negative Negative 5004297082) NIDIA (test code = NIDIA) Urine Drug Cutoff Ranges Benzodiazepines: ? ? 150 ng/mLBarbiturates: ?200 ng/mLAmphetamine: ? 500 ng/mLCannabinoids: ?50 ?ng/mLMethadone: ? 200 ng/mLMethamphetamine: ? ? 500 ng/mL Opiates: ? 100 ng/mL or 2000 ng/mLCocaine: ? 150 ng/mLPropoxyphene: ?300 ng/mLTricyclics: ?300 ng/mLOxycodone: ? 100 ng/mLPCP: ? 25 ?ng/mL The results are to be used only for medical (i.e., treatment) purposes. Unconfirmed screening results must not be used for non-medical purposes (e.g., employment testing, legal testing). Lab Interpretation (test Normal code = 05856-3) [facility] with [id number] 00:45:00 Test Item Value Reference Range Interpretation Comments WBC (test code = See_Comment H [Automated 3762-2) message] The sy stem which generated this result transmitted reference range : 4.20 - 10.70 10*3/?L. The reference range was not used to interpret this result as normal/abnormal . RBC (test code = See_Comment [Automated 469-8) message] The sy stem which generated this result transmitted reference range : 4.26 - 5.52 10*6/?L. The reference range was not used to interpret this result as normal/abnormal . HGB (test code = 14.4 g/dL 12.2-16.4 718-7) HCT (test code = 41.4 % 38.4-49.3 4544-3) MCV (test code = 89.8 fL 81.7-95.6 787-2) MCH (test code = 31.2 pg 26.1-32.7 785-6) MCHC (test code = 34.8 g/dL 31.2-35 786-4) RDW-SD (test code = 41.8 fL 38.5-51.6 83474-9) RDW-CV (test code = 12.7 % 12.1-15.4 788-0) PLT (test code = See_Comment [Automated 777-3) message] The sy stem which generated this result transmitted reference range : 150 - 328 10*3/ ?L. The reference r tin was not used to interpret this result as normal/abnormal . MPV (test code = 10.7 fL 9.8-13 13664-0) NRBC/100 WBC (test See_Comment [Automat ed code = 6590658537) message] The system which generated this result transmitted reference range : 0.0 - 10.0 /100 WBCs. The refer ence range was not u sed to interpret th is result as normal/abnormal . NRBC x10^3 (test code <0.01 See_Comment [Auto mated = 7720346825) message] The s ystem which generated this result transmitted reference range : 10*3/?L. The reference range was not used to interpret this result as normal/abnormal . GRAN MAT (NEUT) % 78.9 % (test code = 770-8) IMM GRAN % (test code 0.60 % = 1866352712) LYMPH % (test code = 13.3 % 736-9) MONO % (test code = 5.8 % 5905-5) EOS % (test code = 0.8 % 713-8) BASO % (test code = 0.6 % 706-2) GRAN MAT x10^3(ANC) 8.79 10*3/uL 1.99-6.95 H (test code = 3255380822) IMM GRAN x10^3 (test 0.07 10*3/uL 0-0.06 H code = 5803025062) LYMPH x10^3 (test code 1.48 10*3/uL 1.09-3.23 = 731-0) MONO x10^3 (test code 0.65 10*3/uL 0.36-1.02 = 742-7) EOS x10^3 (test code = 0.09 10*3/uL 0.06-0.53 711-2) BASO x10^3 (test code 0.07 10*3/uL 0.01-0.09 = 704-7) Lab Interpretation Abnormal (test code = 08188-9) [facility] CenterCT L[facility]G CANCER [id number] 21:57:03 1. Stable noncalcified bilateral pulmonary nodules and calcified granulomasince August 2016 study.2. Mild worsening of obstructive lung disease since 2015 study.3. Stable coronary atherosclerosis, slightly enlarged lymph nodes in themediastinum and small pericardial effusion. Lung RADS Category . Re commendation: Continue with annual screening Category 2: Negative screen - nodules with benign appearance or behavior - continue annual screening in 12 months ?S modifier: Coronary atherosclerosis, COPD and small pericardial effusion. PROCEDURE: CT CHEST NON CONTRAST? LUNG CANCER SCREENING. CLINICAL INDICATION: Lung cancer screen, asymptomatic, current smoker (min.30 pack-yrs) COMPARISON: None. TECHNIQUE: Low dose helical CT was acquired from lung apices to baseswasobtained and reconstructed at 1 mm, without intravenous contrast. MIP andcoronal & sagittal MPR images were generated and reviewed. (DFOV = 39.7cm) FINDINGS: Lower neck/thyroid: Unremarkable. Lungs: Numerous 2 mm to 6 mm size nodules noted including some peripheralpleural-based as well as alongthe interlobar fissures in both lungs(series #2 identified at least 21 nodules, largest is approximately 6 mmsize in the anterior left upper lobe on image #256). Series number 2 alsoidentified 8 nodules in the left lung, largest is pleural-based 5 mm nodulein the medial left lower lung on image #274.Pleural-based calcified granuloma in the right middle lobe (image #349),small calcified granuloma in the posterior left lower lung on image #85,image #101 and #124 noted. Obstructive lung disease is seenwithin the malleable subcentimeter sizeand thoracic measures bullae predominantly in the peripheral upper lungs,right middle lobe, less involvement of the lower lungs. Central airway: Unremarkable. Pleura: No pleural effusion, thickening or pneumothorax. Thoracic aorta and great vessels: Classic arch anatomy. Normal in diameter.Mild atherosclerotic disease affects the visualized aorta. Pulmonary arteries: Unremarkable. Heart and pericardium: Moderate triple-vessel coronary atherosclerosis.Small pericardial effusion, unchanged. Lymph nodes: Scattered 1.5 or smaller size lymph nodes again noted in themediastinum and along the lateral surface of the aortic arch, unchanged. Mediastinum: Bipolar permanent pacemaker inserted through right internaljugular. Thoracic spine and chest wall: Generalized degenerative spondylosis ofmoderate severity. No aggressive bone lesions or compression deformitydetectedin the thoracic vertebral bodies. Other Lines/Tubes/Devices/Hardware: None Visualized upper abdomen: Unremarkable. [facility], Radiant Results Inft User - 08/30/2020 3:58 PM CSTPROCEDURE: CT CHEST NON CONTRAST ? LUNG CANCER SCREENING.CLINICAL INDICATION: Lung cancer screen, asymptomatic, current smoker (min.30 pack-yrs) COMPARISON: None.TECHNIQUE: Low dose helical CT was acquired from lung apices to bases wasobtained and reconstructed at 1 mm, without intravenous contrast. MIP andcoronal & sagittal MPR images were generated and reviewed. (DFOV = 39.7cm)FINDINGS:Lower neck/thyroid: Unremarkable.Lungs: Numerous 2 mm to 6 mm size nodules noted including some peripheralpleural-based as well as along the interlobar fissures in both lungs(series #2 identified at least 21 nodules, largest is approximately 6 mmsize in the anterior left upper lobe on image #256). Series number 2 alsoidentified 8 nodules in the left lung, largest is pleural-based 5 mm nodulein the medial left lower lung on image #274.Pleural-based calcified granuloma in the right middle lobe (image #349),sma ll calcified granuloma in the posterior left lower lung on image #85,image #101 and #124 noted.Obstructive lung disease is seen within the malleable subcentimeter sizeand thoracic measures bullae predominantly in the peripheral upper lungs,right middle lobe, less involvement of the lower lungs.Central airway: Unremarkable.Pleura: No pleural effusion, thickening or pneumothorax.Thoracic aorta and great vessels: Classic arch anatomy. Normal in diameter.Mild atherosclerotic disease affects the visualized aorta.Pulmonary arteries: Unremarkable.Heart and pericardium: Moderate triple-vessel coronary atherosclerosis.Small pericardial effusion, unchanged.Lymph nodes: Scattered 1.5 or smaller size lymph nodes again noted in themediastinum and along the lateral surface of the aortic arch, unchanged.Mediastinum: Bipolar permanent pacemaker inserted through right internaljugular.Thoracic spine and chest wall: Generalized degenerative spondylosis ofmoderate severity. No aggressive bone lesions or compression deformitydetected in the thoracic vertebral bodies.Other Lines/Tubes/Devices/Hardware: NoneVisualized upper abdomen: Unremarkable. IMPRESSION1. Stable noncalcified bilateral pulmonary nodules and calcified granulomasince August 2016 study.2. Mild worsening of obstructive lung disease since 2016 study.3. Stable coronary atherosclerosis, slightly enlarged lymph nodes inthemediastinum and small pericardial effusion.Lung RADS Category . Recommendation: Continue with annual screening Category 2: Negative screen - nodules with benign appearance or behavior -continue annual screening in 12 months S modifier: Coronary atherosclerosis, COPDand small pericardial effusion. [facility] CenterTROPONIN [id number] 17:18:00 Test Item Value Reference Range Interpretation Comments TROPONIN I (test <0.012 See_Comment [Automated code = 2936214592) message] The system which generated this result transmitted reference range : <=0.034 ng/mL. The reference range was not used to interpr et this result as normal/abnormal . NIDIA (test code = Equal or Less than NIDIA) 0.034 ng/ml---Normal ?Note: Cardiac troponin begins to rise 3-4 hours after the onset of ischemia. Repeat in 4-6 hours if the sample was drawn within 3-4 hours of the onset of the symptom and found normal. Between 0.035 and 0.120 ng/mL--- Borderline. Questionable myocardial injury or necrosis ? ?Note: Serial measurement may be necessary to confirm or exclude the diagnosis of myocardial injury or necrosis; Clinical correlation (symptoms, EKGs, imaging studies, and others) required; Repeat in 4-6 hours if clinically indicated. ? Equal or Higher than 0.121 ng/mL---Abnormal. Myocardial Injury or Necrosis Likely ? Biotin has been reported to cause a negative bias, interpret results relative to patient's use of biotin. ? Lab Interpretation Normal (test code = 43673-5) [facility] ([id number])2020-08-03 17:08:00 Test Item Value Reference Range Interpretation Comments NA (test code = 137 mmol/L 135-145 0372604346) K (test code = 3.7 mmol/L 3.5-5 2892731430) CL (test code = 104 mmol/L 98-108 7679664232) CO2 TOTAL (test code = 26 mmol/L 23-31 7592560880) AGAP (test code = 2-16 1457199773) BUN (test code = 10 mg/dL 7-23 5797111935) GLUCOSE (test code = 167 mg/dL 70-110 H 6705279873) CREATININE (test code = 0.79 mg/dL 0.6-1.25 1410205344) TOTAL BILI (test code = 0.3 mg/dL 0.1-1.2 5724454391) CALCIUM (test code = 9.1 mg/dL 8.6-10.6 8147219725) T PROTEIN (test code = 6.2 g/dL 6.3-8.2 L 3543275737) ALBUMIN (test code = 3.5 g/dL 3.5-5 4771679582) ALK PHOS (test code = 83 U/L 34-122 3118909674) ALTv (test code = 11 U/L 5-50 1742-6) AST(SGOT) (test code = 17 U/L 13-40 7008453152) eGFR Calculation mL/min/1.73m2 (Non-) (test code = 8012050046) eGFR Calculation mL/min/1.73m2 () (test code = 0615574524) NIDIA (test code = NIDIA) Association of Glomerular Filtration Rate (GFR) and Staging of Kidney Disease* + --+ --+ ------+| GFR (mL/min/1.73 m2) ?| With Kidney Damage ?| ?Without Kidney Damage+ --------+ --------+ +| ?>90 ?| ?Stage one ?| ? Normal ?+ ---+ ---+ -------+| ?60-89 ?| ?Stage two ?| ? Decreased GFR ? + --+ --+ ------+| ?30-59 ?| ?Stage three ?| ? Stage three ? + --+ --+ ------+| ?15-29 ?| ?Stage four ? | ? Stage four ?+ ---+ ---+ -------+| ?<15 (or dialysis) ? ?| ?Stage five ? | ? Stage five ?+ ---+ ---+ -------+ *Each stage assumes the associated GFR level has been in effect for at least three months. ?Stages 1 to 5, with or without kidney disease, indicate chronic kidney disease. Notes: Determination of stages one and two (with eGFR >59mL/min/1.73 m2) requires estimation of kidney damage for at least three months as defined by structural or functional abnormalities of the kidney, manifested by either:Pathological abnormalities or Markers of kidney damage (including abnormalities in the composition of the blood or urine or abnormalities in imaging tests). Lab Interpretation Abnormal (test code = 09081-8) [facility] Center[facility], [id number] 17:07:00 Test Item Value Reference Range Interpretation Comments LIPASE (test code = 6747241292) 75 U/L 0-220 Lab Interpretation (test code = Normal 71736-2) [facility] CenteraPTT2020-11-25 16:32:00 Test Item Value Reference Range Interpretation Comments APTT Patient (test See_Comment [Automat ed code = 3173-2) message] The system which generated this result transmitted reference range : 23 - 38 Seconds . The reference range was not used to interpr et this result as normal/abnormal . NIDIA (test code = NIDIA) The [facility] patient population mean normal value for aPTT is 30 seconds. Lab Interpretation Normal (test code = 15666-1) [facility] CenterPROTHROMBIN TIME / [id number] 16:30:00 Test Item Value Reference Range Interpretation Comments PROTIME PATIENT (test See_Comment [Auto mated message] code = 5964-2) The system wh ich generated this result transmitted ref erence range: 12.0 - 1 4.7 Seconds. The re ference range was not u sed to interpret this result as normal/abnor mal. INR (test code = 6301-6) Nor mal INR <1.1; Warfarin Therap eutic range 2.0 to 3. 0 or 2.5 to 3.5, dep ending upon the indica tions. Lab Interpretation (test Normal code = 20838-5) [facility] CenterXR CHEST 1 [id number] 16:26:44HISTORY: Chest pain. TECHNIQUE: 2 Portable AP view of the chest were obtained. Comparison madewith 08/02/2015 study. FINDINGS: No acute pneumonia. No pneumothorax or pleural effusion orpulmonary congestion detected. 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 Mild upper lobe predominant obstructivelung disease suspected. CONCLUSIONS: No signs of acute cardiopulmonary disease. [facility], Radiant Results Inft User - 08/03/2020 10:27 AM CSTHISTORY: Chest pain.TECHNIQUE: 2 Portable AP view of the chest were obtained. Comparison madewith 08/02/2015 study.FINDINGS: No acute pneumonia. No pneumothorax or pleural effusion orpulmonary congestion detected. 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 Mild upper lobe predominant obstructivelung disease suspected.CONCLUSIONS: No signs of acute cardiopulmonary disease. [facility] WITH [id number] 16:20:00 Test Item Value Reference Range Interpretation Comments WBC (test code = See_Comment [Automated 3490-2) message] The sy stem which generated this result transmitted reference range : 4.20 - 10.70 10*3/?L. The reference range was not used to interpret this result as normal/abnormal . RBC (test code = See_Comment [Automated 369-8) message] The sy stem which generated this result transmitted reference range : 4.26 - 5.52 10*6/?L. The reference range was not used to interpret this result as normal/abnormal . HGB (test code = 14.1 g/dL 12.2-16.4 718-7) HCT (test code = 40.0 % 38.4-49.3 4544-3) MCV (test code = 89.7 fL 81.7-95.6 787-2) MCH (test code = 31.6 pg 26.1-32.7 785-6) MCHC (test code = 35.3 g/dL 31.2-35 H 786-4) RDW-SD (test code = 42.7 fL 38.5-51.6 64072-3) RDW-CV (test code = 13.0 % 12.1-15.4 788-0) PLT (test code = See_Comment [Automated 277-3) message] The sy stem which generated this result transmitted reference range : 150 - 328 10*3/ ?L. The reference r tin was not used to interpret this result as normal/abnormal . MPV (test code = 10.5 fL 9.8-13 15379-2) NRBC/100 WBC (test See_Comment [Automat ed code = 4631956225) message] The system which generated this result transmitted reference range : 0.0 - 10.0 /100 WBCs. The refer ence range was not u sed to interpret th is result as normal/abnormal . NRBC x10^3 (test code <0.01 See_Comment [Auto mated = 4475626518) message] The s ystem which generated this result transmitted reference range : 10*3/?L. The reference range was not used to interpret this result as normal/abnormal . GRAN MAT (NEUT) % 76.0 % (test code = 770-8) IMM GRAN % (test code 0.50 % = 9441383677) LYMPH % (test code = 15.3 % 736-9) MONO % (test code = 7.0 % 5905-5) EOS % (test code = 0.8 % 713-8) BASO % (test code = 0.4 % 706-2) GRAN MAT x10^3(ANC) 7.59 10*3/uL 1.99-6.95 H (test code = 1162870737) IMM GRAN x10^3 (test 0.05 10*3/uL 0-0.06 code = 8404048895) LYMPH x10^3 (test code 1.53 10*3/uL 1.09-3.23 = 731-0) MONO x10^3 (test code 0.70 10*3/uL 0.36-1.02 = 742-7) EOS x10^3 (test code = 0.08 10*3/uL 0.06-0.53 711-2) BASO x10^3 (test code 0.04 10*3/uL 0.01-0.09 = 704-7) Lab Interpretation Abnormal (test code = 84557-4) [facility] CenterUrinalysis2020-09-07 00:09:00 Test Item Value Reference Range Interpretation Comments APPEARANCE (test code = Clear Clear 7270881263) COLOR (test code = Yellow Yellow 4146995540) PH (test code = 4.8-8.0 3390091442) SP GRAVITY (test code = 1.003-1.030 1593320221) GLU U QUAL (test code = Normal Normal 7701169862) BLOOD (test code = Negative Negative 6233153312) KETONES (test code = Negative Negative 8423714004) PROTEIN (test code = Negative Negative 2887-8) UROBILIN (test code = Normal Normal 2324984948) BILIRUBIN (test code = Negative Negative 1885782001) NITRITE (test code = Negative Negative 0492981189) LEUK RICK (test code = Negative Negative 9362190402) RBC/HPF (test code = See_Comment H [Autom ated message] 0378587831) The system Training Advisor generated this result transmitted ref erence range: 0 - 3 HP F. The reference range was not used to int erpret this result as normal/abnormal . WBC/HPF (test code = See_Comment [Autom ated message] 4954328673) The system Training Advisor generated this result transmitted ref erence range: 0 - 5 HP F. The reference range was not used to int erpret this result as normal/abnormal . BACTERIA (test code = Few Negative A 7615401680) MUCOUS (test code = Slight Negative LPF A 8508608404) Lab Interpretation (test Abnormal code = 69415-3) [facility] [id number] 23:31:00 Test Item Value Reference Range Interpretation Comments TROPONIN I (test <0.012 See_Comment [Automated code = 4692301461) message] The system which generated this result transmitted reference range : <=0.034 ng/mL. The reference range was not used to interpr et this result as normal/abnormal . NIDIA (test code = Equal or Less than NIDIA) 0.034 ng/ml---Normal ?Note: Cardiac troponin begins to rise 3-4 hours after the onset of ischemia. Repeat in 4-6 hours if the sample was drawn within 3-4 hours of the onset of the symptom and found normal. Between 0.035 and 0.120 ng/mL--- Borderline. Questionable myocardial injury or necrosis ? ?Note: Serial measurement may be necessary to confirm or exclude the diagnosis of myocardial injury or necrosis; Clinical correlation (symptoms, EKGs, imaging studies, and others) required; Repeat in 4-6 hours if clinically indicated. ? Equal or Higher than 0.121 ng/mL---Abnormal. Myocardial Injury or Necrosis Likely ? Biotin has been reported to cause a negative bias, interpret results relative to patient's use of biotin. ? Lab Interpretation Normal (test code = 72617-6) [facility]eraPTT2020-09-06 23:23:00 Test Item Value Reference Range Interpretation Comments APTT Patient (test See_Comment [Automat ed code = 3173-2) message] The system which generated this result transmitted reference range : 23 - 38 Seconds . The reference range was not used to interpr et this result as normal/abnormal . NIDIA (test code = NIDIA) The [facility] patient population mean normal value for aPTT is 30 seconds. Lab Interpretation Normal (test code = 24938-0) [facility] CenterPROTHROMBIN TIME / [id number] 23:21:00 Test Item Value Reference Range Interpretation Comments PROTIME PATIENT (test See_Comment [Auto mated message] code = 5964-2) The system wh ich generated this result transmitted ref erence range: 12.0 - 1 4.7 Seconds. The re ference range was not u sed to interpret this result as normal/abnor mal. INR (test code = 6301-6) Nor mal INR <1.1; Warfarin Therap eutic range 2.0 to 3. 0 or 2.5 to 3.5, dep ending upon the indica tions. Lab Interpretation (test Normal code = 23098-3) [facility] CenterCOMP. METABOLIC PANEL ([id number])2020-05-15 23:20:00 Test Item Value Reference Range Interpretation Comments NA (test code = 138 mmol/L 135-145 3065490525) K (test code = 4.0 mmol/L 3.5-5 4892556722) CL (test code = 102 mmol/L 98-108 5804398488) CO2 TOTAL (test code = 30 mmol/L 23-31 9780481785) AGAP (test code = 2-16 4331266461) BUN (test code = 12 mg/dL 7-23 2244323272) GLUCOSE (test code = 121 mg/dL 70-110 H 2657892551) CREATININE (test code = 1.13 mg/dL 0.6-1.25 6416870625) TOTAL BILI (test code = 0.3 mg/dL 0.1-1.8 8425503618) CALCIUM (test code = 8.9 mg/dL 8.6-10.6 4623063066) T PROTEIN (test code = 6.3 g/dL 6.3-8.2 1293046555) ALBUMIN (test code = 3.7 g/dL 3.5-5 2397180513) ALK PHOS (test code = 78 U/L 34-122 2114837165) ALTv (test code = 22 U/L 5-50 1742-6) AST(SGOT) (test code = 21 U/L 13-40 9683517563) eGFR Calculation mL/min/1.73m2 (Non-) (test code = 1917518496) eGFR Calculation mL/min/1.73m2 () (test code = 5863703933) NIDIA (test code = NIDIA) Association of Glomerular Filtration Rate (GFR) and Staging of Kidney Disease* + --+ --+ ------+| GFR (mL/min/1.73 m2) ?| With Kidney Damage ?| ?Without Kidney Damage+ --------+ --------+ +| ?>90 ?| ?Stage one ?| ? Normal ?+ ---+ ---+ -------+| ?60-89 ?| ?Stage two ?| ? Decreased GFR ? + --+ --+ ------+| ?30-59 ?| ?Stage three ?| ? Stage three ? + --+ --+ ------+| ?15-29 ?| ?Stage four ? | ? Stage four ?+ ---+ ---+ -------+| ?<15 (or dialysis) ? ?| ?Stage five ? | ? Stage five ?+ ---+ ---+ -------+ *Each stage assumes the associated GFR level has been in effect for at least three months. ?Stages 1 to 5, with or without kidney disease, indicate chronic kidney disease. Notes: Determination of stages one and two (with eGFR >59mL/min/1.73 m2) requires estimation of kidney damage for at least three months as defined by structural or functional abnormalities of the kidney, manifested by either:Pathological abnormalities or Markers of kidney damage (including abnormalities in the composition of the blood or urine or abnormalities in imaging tests). Lab Interpretation Abnormal (test code = 23500-0) [facility] CenterLIPASE, [id number] 23:20:00 Test Item Value Reference Range Interpretation Comments LIPASE (test code = 6088086020) 47 U/L 0-220 Lab Interpretation (test code = Normal 52404-1) [facility] CenterCREATINE [id number] 23:20:00 Test Item Value Reference Range Interpretation Comments CK (test code = 7761703211) 60 U/L 33-194 Lab Interpretation (test code = Normal 20576-6) [facility] CenterCBC WITH [id number] 23:06:00 Test Item Value Reference Range Interpretation Comments WBC (test code = See_Comment [Automated 8381-2) message] The sy stem which generated this result transmitted reference range : 4.20 - 10.70 10*3/?L. The reference range was not used to interpret this result as normal/abnormal . RBC (test code = See_Comment [Automated 066-8) message] The sy stem which generated this result transmitted reference range : 4.26 - 5.52 10*6/?L. The reference range was not used to interpret this result as normal/abnormal . HGB (test code = 14.7 g/dL 12.2-16.4 718-7) HCT (test code = 42.0 % 38.4-49.3 4544-3) MCV (test code = 88.8 fL 81.7-95.6 787-2) MCH (test code = 31.1 pg 26.1-32.7 785-6) MCHC (test code = 35.0 g/dL 31.2-35 786-4) RDW-SD (test code = 43.9 fL 38.5-51.6 87522-1) RDW-CV (test code = 13.4 % 12.1-15.4 788-0) PLT (test code = See_Comment [Automated 397-3) message] The sy stem which generated this result transmitted reference range : 150 - 328 10*3/ ?L. The reference r tin was not used to interpret this result as normal/abnormal . MPV (test code = 10.0 fL 9.8-13 09550-0) NRBC/100 WBC (test See_Comment [Automat ed code = 1893791837) message] The system which generated this result transmitted reference range : 0.0 - 10.0 /100 WBCs. The refer ence range was not u sed to interpret th is result as normal/abnormal . NRBC x10^3 (test code <0.01 See_Comment [Auto mated = 1375212606) message] The s ystem which generated this result transmitted reference range : 10*3/?L. The reference range was not used to interpret this result as normal/abnormal . GRAN MAT (NEUT) % 76.5 % (test code = 770-8) IMM GRAN % (test code 0.80 % = 6815585376) LYMPH % (test code = 13.0 % 736-9) MONO % (test code = 8.1 % 5905-5) EOS % (test code = 0.9 % 713-8) BASO % (test code = 0.7 % 706-2) GRAN MAT x10^3(ANC) 6.44 10*3/uL 1.99-6.95 (test code = 9436249791) IMM GRAN x10^3 (test 0.07 10*3/uL 0-0.06 H code = 2123346085) LYMPH x10^3 (test code 1.10 10*3/uL 1.09-3.23 = 731-0) MONO x10^3 (test code 0.68 10*3/uL 0.36-1.02 = 742-7) EOS x10^3 (test code = 0.08 10*3/uL 0.06-0.53 711-2) BASO x10^3 (test code 0.06 10*3/uL 0.01-0.09 = 704-7) Lab Interpretation Abnormal (test code = 86510-9) [facility] CenterTHYROID STIMULATING [id number] 15:15:00 Test Item Value Reference Range Interpretation Comments TSH (test code = See_Comment [Automated message] 2147063791) The system whic h generated this result transmitted ref erence range: 0.45 - 4 .70 mIU/L. The refe rence range was not u sed to interpret this result as normal/abnor mal. Lab Interpretation (test Normal code = 22377-9) [facility] CenterTHYROID STIMULATING [id number] 15:15:00 Test Item Value Reference Range Interpretation Comments TSH (test code = See_Comment [Automated message] 4564319169) The system Training Advisor generated this result transmitted ref erence range: 0.45 - 4 .70 mIU/L. The refe rence range was not u sed to interpret this result as normal/abnor mal. Lab Interpretation (test Normal code = 21562-4) [facility] [id number] 15:01:00 Test Item Value Reference Range Interpretation Comments FREE T4 (test code = 4360244871) 0.88 ng/dL 0.78-2.2 Lab Interpretation (test code = Normal 84846-7) [facility] [id number] 15:01:00 Test Item Value Reference Range Interpretation Comments FREE T3 (test code = 4915562826) 3.70 pg/mL 2.77-5.27 Lab Interpretation (test code = Normal 04308-9) [facility] [id number] 15:01:00 Test Item Value Reference Range Interpretation Comments FREE T4 (test code = 6224875083) 0.88 ng/dL 0.78-2.2 Lab Interpretation (test code = Normal 28891-5) [facility] [id number] 15:01:00 Test Item Value Reference Range Interpretation Comments FREE T3 (test code = 6130634769) 3.70 pg/mL 2.77-5.27 Lab Interpretation (test code = Normal 70636-3) [facility] CenterURINALYSIS2020 14:59:00 Test Item Value Reference Range Interpretation Comments APPEARANCE (test code = Clear Clear 3948333212) COLOR (test code = Yellow Yellow 8625453506) PH (test code = 4.8-8.0 7638618720) SP GRAVITY (test code = 1.003-1.030 3636830947) GLU U QUAL (test code = Normal Normal 7283853095) BLOOD (test code = Negative Negative 9428514751) KETONES (test code = Negative Negative 7616252865) PROTEIN (test code = Negative Negative 2887-8) UROBILIN (test code = Normal Normal 5223585047) BILIRUBIN (test code = Negative Negative 1220334364) NITRITE (test code = Negative Negative 3191656190) LEUK RICK (test code = 25/uL Negative A 8615468458) RBC/HPF (test code = See_Comment [Autom ated message] 2313596220) The system Training Advisor generated this result transmitted ref erence range: 0 - 3 HP F. The reference range was not used to int erpret this result as normal/abnormal . WBC/HPF (test code = See_Comment [Autom ated message] 1330470387) The system Training Advisor generated this result transmitted ref erence range: 0 - 5 HP F. The reference range was not used to int erpret this result as normal/abnormal . BACTERIA (test code = Negative Negative 5039836619) MUCOUS (test code = Slight Negative LPF A 9022918576) SQ EPITH (test code = HPF 7601149905) Lab Interpretation (test Abnormal code = 50334-3) [facility] CenterURINALYSIS2020 14:59:00 Test Item Value Reference Range Interpretation Comments APPEARANCE (test code = Clear Clear 4839331903) COLOR (test code = Yellow Yellow 3585201104) PH (test code = 4.8-8.0 7348243755) SP GRAVITY (test code = 1.003-1.030 5413610110) GLU U QUAL (test code = Normal Normal 7176799116) BLOOD (test code = Negative Negative 6071993909) KETONES (test code = Negative Negative 2127784559) PROTEIN (test code = Negative Negative 2887-8) UROBILIN (test code = Normal Normal 3613023829) BILIRUBIN (test code = Negative Negative 5890910264) NITRITE (test code = Negative Negative 6297157954) LEUK RICK (test code = 25/uL Negative A 0015991742) RBC/HPF (test code = See_Comment [Autom ated message] 8312385581) The system Training Advisor generated this result transmitted ref erence range: 0 - 3 HP F. The reference range was not used to int erpret this result as normal/abnormal . WBC/HPF (test code = See_Comment [Autom ated message] 9736494731) The system Training Advisor generated this result transmitted ref erence range: 0 - 5 HP F. The reference range was not used to int erpret this result as normal/abnormal . BACTERIA (test code = Negative Negative 6381147953) MUCOUS (test code = Slight Negative LPF A 6253735508) SQ EPITH (test code = HPF 1427397348) Lab Interpretation (test Abnormal code = 19592-0) [facility]. METABOLIC PANEL (31130)2020-01-15 14:44:00 Test Item Value Reference Range Interpretation Comments NA (test code = 137 mmol/L 135-145 1462977298) K (test code = 4.7 mmol/L 3.5-5 9762923470) CL (test code = 102 mmol/L 98-108 5234355208) CO2 TOTAL (test code = 23 mmol/L 23-31 0762713802) AGAP (test code = 2-16 5904259551) BUN (test code = 14 mg/dL 7-23 2511860856) GLUCOSE (test code = 149 mg/dL 70-110 H 2325198521) CREATININE (test code = 0.84 mg/dL 0.6-1.25 8177436656) TOTAL BILI (test code = 0.6 mg/dL 0.1-1.6 4397962758) CALCIUM (test code = 9.5 mg/dL 8.6-10.6 7878502823) T PROTEIN (test code = 7.7 g/dL 6.3-8.2 4150303080) ALBUMIN (test code = 4.6 g/dL 3.5-5 9694378623) ALK PHOS (test code = 92 U/L 34-122 3145217720) ALTv (test code = 22 U/L 5-50 1742-6) AST(SGOT) (test code = 22 U/L 13-40 5777417977) eGFR Calculation mL/min/1.73m2 (Non-) (test code = 5636477578) eGFR Calculation mL/min/1.73m2 () (test code = 7411467904) NIDIA (test code = NIDIA) Association of Glomerular Filtration Rate (GFR) and Staging of Kidney Disease* + --+ --+ ------+| GFR (mL/min/1.73 m2) ?| With Kidney Damage ?| ?Without Kidney Damage+ --------+ --------+ +| ?>90 ?| ?Stage one ?| ? Normal ?+ ---+ ---+ -------+| ?60-89 ?| ?Stage two ?| ? Decreased GFR ? + --+ --+ ------+| ?30-59 ?| ?Stage three ?| ? Stage three ? + --+ --+ ------+| ?15-29 ?| ?Stage four ? | ? Stage four ?+ ---+ ---+ -------+| ?<15 (or dialysis) ? ?| ?Stage five ? | ? Stage five ?+ ---+ ---+ -------+ *Each stage assumes the associated GFR level has been in effect for at least three months. ?Stages 1 to 5, with or without kidney disease, indicate chronic kidney disease. Notes: Determination of stages one and two (with eGFR >59mL/min/1.73 m2) requires estimation of kidney damage for at least three months as defined by structural or functional abnormalities of the kidney, manifested by either:Pathological abnormalities or Markers of kidney damage (including abnormalities in the composition of the blood or urine or abnormalities in imaging tests). Lab Interpretation Abnormal (test code = 01739-9) [facility] CenterLIPID PANEL (24125)(TOTAL CHOLESTEROL, TRIGLYCERIDES, HDL)2020-01-15 14:44:00 Test Item Value Reference Range Interpretation Comments CHOL (test code = 236 mg/dL 120-200 H 9551261427) HDL (test code = 53 mg/dL >40 7818118298) HDLC RATIO (test code = See_Comment [Au tomated message] 4590409261) The system Training Advisor generated this result transmit sadaf reference range : <=5.0. The refe rence range was not u sed to interpret th is result as normal/abnormal . TRIG (test code = 86 mg/dL 30-170 5719087056) LDL CHOL (test code = 166 mg/dL See_Comment H [Auto mated message] 74981-0) The system Training Advisor generated this result transmit sadaf reference range : <=160. The refe rence range was not u sed to interpret th is result as normal/abnormal . VLDL (test code = 17 mg/dL 5-60 9428782675) Lab Interpretation (test Abnormal code = 65271-6) [facility] CenterCOMP. [facility]OLIC PANEL (87681)2020-01-15 14:44:00 Test Item Value Reference Range Interpretation Comments NA (test code = 137 mmol/L 135-145 3232963627) K (test code = 4.7 mmol/L 3.5-5 1919975372) CL (test code = 102 mmol/L 98-108 6590599076) CO2 TOTAL (test code = 23 mmol/L 23-31 1277414946) AGAP (test code = 2-16 9059597977) BUN (test code = 14 mg/dL 7-23 0056622319) GLUCOSE (test code = 149 mg/dL 70-110 H 8745700484) CREATININE (test code = 0.84 mg/dL 0.6-1.25 3622643839) TOTAL BILI (test code = 0.6 mg/dL 0.1-1.8 9916343704) CALCIUM (test code = 9.5 mg/dL 8.6-10.6 5242803844) T PROTEIN (test code = 7.7 g/dL 6.3-8.2 3786775816) ALBUMIN (test code = 4.6 g/dL 3.5-5 9896188745) ALK PHOS (test code = 92 U/L 34-122 9633356917) ALTv (test code = 22 U/L 5-50 1742-6) AST(SGOT) (test code = 22 U/L 13-40 [id number]) eGFR Calculation mL/min/1.73m2 (Non-) (test code = 9784283867) eGFR Calculation mL/min/1.73m2 () (test code = 3158086198) NIDIA (test code = NIDIA) Association of Glomerular Filtration Rate (GFR) and Staging of Kidney Disease* + --+ --+ ------+| GFR (mL/min/1.73 m2) ?| With Kidney Damage ?| ?Without Kidney Damage+ --------+ --------+ +| ?>90 ?| ?Stage one ?| ? Normal ?+ ---+ ---+ -------+| ?60-89 ?| ?Stage two ?| ? Decreased GFR ? + --+ --+ ------+| ?30-59 ?| ?Stage three ?| ? Stage three ? + --+ --+ ------+| ?15-29 ?| ?Stage four ? | ? Stage four ?+ ---+ ---+ -------+| ?<15 (or dialysis) ? ?| ?Stage five ? | ? Stage five ?+ ---+ ---+ -------+ *Each stage assumes the associated GFR level has been in effect for at least three months. ?Stages 1 to 5, with or without kidney disease, indicate chronic kidney disease. Notes: Determination of stages one and two (with eGFR >59mL/min/1.73 m2) requires estimation of kidney damage for at least three months as defined by structural or functional abnormalities of the kidney, manifested by either:Pathological abnormalities or Markers of kidney damage (including abnormalities in the composition of the blood or urine or abnormalities in imaging tests). Lab Interpretation Abnormal (test code = 97705-6) [facility]TOTAL CHOLESTEROL, TRIGLYCERIDES, HDL)2020-01-15 14:44:00 Test Item Value Reference Range Interpretation Comments CHOL (test code = 236 mg/dL 120-200 H [id number]) HDL (test code = 53 mg/dL >40 0343267979) HDLC RATIO (test code = See_Comment [Au tomated message] [id number]) The system Training Advisor generated this result transmit sadaf reference range : <=5.0. The refe rence range was not u sed to interpret th is result as normal/abnormal . TRIG (test code = 86 mg/dL 30-170 [id number]) LDL CHOL (test code = 166 mg/dL See_Comment H [Auto mated message] 50436-6) The system Training Advisor generated this result transmit sadaf reference range : <=160. The refe rence range was not u sed to interpret th is result as normal/abnormal . VLDL (test code = 17 mg/dL 5-60 8037121064) Lab Interpretation (test Abnormal code = 29295-1) [facility]A1C)2020-01-15 14:43:00 Test Item Value Reference Interpretation Comments Range HGB A1C (test code = See_Comment H [Autom ated 4548-4) message] The system which generated this result transmitted reference range : 4.0 - 6.0 % NGSP. The reference range was not used to interpret this result as normal/abnormal . NIDIA (test code = %A1C (NGSP) NIDIA) Interpretation (ADA)4.8-5.6 ? ? Normal or (Non-Diabetic Range)5.7-6.4 ? ? Increased Risk (Pre-Diabetic)>6.5 ?Diabetes Indicated Lab Interpretation Abnormal (test code = 11687-6) [facility]2020-01-15 14:43:00 Test Item Value Reference Interpretation Comments Range HGB A1C (test code = See_Comment H [Autom ated 4548-4) message] The system which generated this result transmitted reference range : 4.0 - 6.0 % NGSP. The reference range was not used to interpret this result as normal/abnormal . NIDIA (test code = %A1C (NGSP) NIDIA) Interpretation (ADA)4.8-5.6 ? ? Normal or (Non-Diabetic Range)5.7-6.4 ? ? Increased Risk (Pre-Diabetic)>6.5 ?Diabetes Indicated Lab Interpretation Abnormal (test code = 06979-6) [facility] WITH [id number] 14:40:00 Test Item Value Reference Range Interpretation Comments WBC (test code = See_Comment [Automated 9390-2) message] The sy stem which generated this result transmitted reference range : 4.20 - 10.70 10*3/?L. The reference range was not used to interpret this result as normal/abnormal . RBC (test code = See_Comment [Automated 119-8) message] The sy stem which generated this result transmitted reference range : 4.26 - 5.52 10*6/?L. The reference range was not used to interpret this result as normal/abnormal . HGB (test code = 16.7 g/dL 12.2-16.4 H 718-7) HCT (test code = 47.2 % 38.4-49.3 4544-3) MCV (test code = 90.8 fL 81.7-95.6 787-2) MCH (test code = 32.1 pg 26.1-32.7 785-6) MCHC (test code = 35.4 g/dL 31.2-35 H 786-4) RDW-SD (test code = 40.7 fL 38.5-51.6 90447-6) RDW-CV (test code = 12.3 % 12.1-15.4 788-0) PLT (test code = See_Comment [Automated 777-3) message] The sy stem which generated this result transmitted reference range : 150 - 328 10*3/ ?L. The reference r tin was not used to interpret this result as normal/abnormal . MPV (test code = 10.4 fL 9.8-13 27457-7) NRBC/100 WBC (test See_Comment [Automat ed code = 7131489972) message] The system which generated this result transmitted reference range : 0.0 - 10.0 /100 WBCs. The refer ence range was not u sed to interpret th is result as normal/abnormal . NRBC x10^3 (test code <0.01 See_Comment [Auto mated = [id number]) message] The s ystem which generated this result transmitted reference range : 10*3/?L. The reference range was not used to interpret this result as normal/abnormal . GRAN MAT (NEUT) % 69.1 % (test code = 770-8) IMM GRAN % (test code 0.70 % = 3847734048) LYMPH % (test code = 19.5 % 736-9) MONO % (test code = 8.2 % 5905-5) EOS % (test code = 1.5 % 713-8) BASO % (test code = 1.0 % 706-2) GRAN MAT x10^3(ANC) 6.16 10*3/uL 1.99-6.95 (test code = 6781930172) IMM GRAN x10^3 (test 0.06 10*3/uL 0-0.06 code = 6584223139) LYMPH x10^3 (test code 1.74 10*3/uL 1.09-3.23 = 731-0) MONO x10^3 (test code 0.73 10*3/uL 0.36-1.02 = 742-7) EOS x10^3 (test code = 0.13 10*3/uL 0.06-0.53 711-2) BASO x10^3 (test code 0.09 10*3/uL 0.01-0.09 = 704-7) Lab Interpretation Abnormal (test code = 89831-6) [facility] WITH [id number] 14:40:00 Test Item Value Reference Range Interpretation Comments WBC (test code = See_Comment [Automated 5390-2) message] The sy stem which generated this result transmitted reference range : 4.20 - 10.70 10*3/?L. The reference range was not used to interpret this result as normal/abnormal . RBC (test code = See_Comment [Automated 789-8) message] The sy stem which generated this result transmitted reference range : 4.26 - 5.52 10*6/?L. The reference range was not used to interpret this result as normal/abnormal . HGB (test code = 16.7 g/dL 12.2-16.4 H 718-7) HCT (test code = 47.2 % 38.4-49.3 4544-3) MCV (test code = 90.8 fL 81.7-95.6 787-2) MCH (test code = 32.1 pg 26.1-32.7 785-6) MCHC (test code = 35.4 g/dL 31.2-35 H 786-4) RDW-SD (test code = 40.7 fL 38.5-51.6 96485-6) RDW-CV (test code = 12.3 % 12.1-15.4 788-0) PLT (test code = See_Comment [Automated 777-3) message] The sy stem which generated this result transmitted reference range : 150 - 328 10*3/ ?L. The reference r tin was not used to interpret this result as normal/abnormal . MPV (test code = 10.4 fL 9.8-13 92391-4) NRBC/100 WBC (test See_Comment [Automat ed code = 0940560125) message] The system which generated this result transmitted reference range : 0.0 - 10.0 /100 WBCs. The refer ence range was not u sed to interpret th is result as normal/abnormal . NRBC x10^3 (test code <0.01 See_Comment [Auto mated = 8195147728) message] The s ystem which generated this result transmitted reference range : 10*3/?L. The reference range was not used to interpret this result as normal/abnormal . GRAN MAT (NEUT) % 69.1 % (test code = 770-8) IMM GRAN % (test code 0.70 % = 7098186057) LYMPH % (test code = 19.5 % 736-9) MONO % (test code = 8.2 % 5905-5) EOS % (test code = 1.5 % 713-8) BASO % (test code = 1.0 % 706-2) GRAN MAT x10^3(ANC) 6.16 10*3/uL 1.99-6.95 (test code = 9347310121) IMM GRAN x10^3 (test 0.06 10*3/uL 0-0.06 code = 1024793872) LYMPH x10^3 (test code 1.74 10*3/uL 1.09-3.23 = 731-0) MONO x10^3 (test code 0.73 10*3/uL 0.36-1.02 = 742-7) EOS x10^3 (test code = 0.13 10*3/uL 0.06-0.53 711-2) BASO x10^3 (test code 0.09 10*3/uL 0.01-0.09 = 704-7) Lab Interpretation Abnormal (test code = 22496-2) [facility]"
== END 2021-07-12 17:01 | disposition home or self-care (01) ==
LOC: ER 14:18
DX: F41.8 Other specified anxiety disorders (principal); E11.9 Type 2 diabetes mellitus without complications; F17.210 Nicotine dependence, cigarettes, uncomplicated; Z95.0 Presence of cardiac pacemaker
CPT/HCPCS: 93005; 85025; 80048; 36415; 80320; 80329 ×2; 85610; 80076; 85730; 81003; 84484; 80307; 70450; 96374; 99284; J7030

== ENCOUNTER 2021-08-13 13:10 | Emergency (ER) | payer OTHER ==
--- OUTSIDE RECORDS SUMMARY | 2021-08-13 13:26 | XMS REPORT | Continuity of Care Document ---
:1960 Author Organization [facility] t Address [address] [place] [address] Care Team Providers Name Role Phone LUANA Primary Care Physician Unavailable Luana MORALES Attending Clinician Lamar EVANGELISTA Attending Clinician Unavailable [place] CLINICAL STAFF ANESTHESIOLOGIST, G Attending Clinician ALTAMIRANO Attending Clinician Unavailable LUANA Attending Clinician Unavailable SHADE EDWARDS Attending Clinician Unavailable Nurse, Pob Immunization Attending Clinician Unavailable Shade Edwards DO Attending Clinician Eleazar SHEEHAN. Attending Clinician Unavailable 2, Lab Attending Clinician Unavailable Radha LEONARDO Attending Clinician Unavailable Aj MORALES Attending Clinician Lex MORALES S Attending Clinician Bebeto MORALES Attending Clinician YARITZA Attending Clinician Unavailable Jessenia GREGORIO, F Attending Clinician TRAVIS SOARES Attending Clinician Unavailable Provider, Urgent Care Attending Clinician Unavailable Rodger GREGORIO, Travis Attending Clinician Sanju BASS Attending Clinician Unavailable Neal LEONARDO, L Attending Clinician Unavailable Lo FULLER Margarita Attending Clinician AJ Attending Clinician Unavailable See JANE, Ayesha Attending Clinician Pob, Lab Main Attending Clinician Unavailable Camille MORALES, C Attending Clinician Doctor Unassigned, Name Attending Clinician Unavailable Gil Rosado MD Attending Clinician Lamar EVANGELISTA Admitting Clinician Unavailable Bebeto MORALES Admitting Clinician Payers Payer Name Policy Type Policy Number Effective Date Expiration Date S sharmin MEDICARE PART A [id number] 2002 \\T\\ B 00:00:00 MEDICAID [facility] [id number] 2020 00:00:00 [employer] MEDICARE [id number] 2019 00:00:00 [facility] [id number] 2019 ID 00:00:00 [employer] [id number] 2019 PLUS CHOICE 00:00:00 Problems Condition Condition Condition Status Onset Resolution Last Treating Co mments Source Name Details Category Date Date Treatment Clinician Date Hypotensio Hypotensio Disease Active U nivers n n 3-15 ity of 00:00: [address] Fall at Fall at Disease Active Univers home, home, 3-03 ity of sequela sequela 00:00: [address] Injury of Injury of Disease Active Uni vers head, head, 3-03 ity of sequela sequela 00:00: [address] Hypovolemi Hypovolemi Disease Active U nivers a a 1-26 ity of 00:00: [address] Orthostati Orthostati Disease Active U nivers c c 1-25 [place] [facility] Disease Active 2019-09 Unive rs discharge discharge 2-01 ity of follow-up follow-up 00:00: [place] 00 Medical Branch Essential Essential Disease Active 2019-09 Uni vers hypertensi hypertensi 2-01 it y of on on 00:00: [place] [facility] Cigarette Cigarette Disease Active 2019-09 Uni vers [...] of type 1.5 type 1.5 00:00: [place] [facility] Need for Need for Disease [...] eye exam 0-01 ity of 00:00: [place] [facility] Need for Need for Disease [...] Undifferen Disease Active U nivers tiated tiated 4-24 ity of schizophre [place]izophre [place] [facility] Bipolar 1 Bipolar 1 Disease Active Uni vers disorder disorder 424 ity of 00:00: Medical Branch Mixed Mixed Disease Active Univers hyperlipid hyperlipid 424 it y of emia emia 00:00: Medical Branch Obesity Obesity Disease Active Overview: Univ ers 24 Formattin ity of 00:00: g of this [place] note Medical might be Branch different from the original. ICD10 Diagnosis Term Digital Program Manager Utility Tobacco Tobacco Disease Active Univers abuse abuse 24 ity of 00:00: [facility] Branch Vitamin D Vitamin D Disease Active Overview: Univers deficiency deficiency 12-31 Formattin ity of 00:00: g of this [place] note Medical might be Branch different from the original. ICD10 Diagnosis Term Digital Program Manager Utility Schizophre Schizophre Disease Active U nivers [place], [place], 424 ity of unspecifie unspecifie [place] d type 00 [facility] Allergies, Adverse Reactions, Alerts Allergy Allergy Status Severity Reaction(s) Onset Inactive Treating Comm ents Source Name Type Date Date Clinician NO KNOWN Drug Active Univers ALLERGIE Class ity of S [facility] Social History Social Habit Start Date Stop Date Quantity Comments Source History of tobacco Cigarette Smoker University of use [facility] Exposure to Not sure University of SARS-CoV-2 (event) [facility] Alcohol intake 2021-07-30 2021-07-30 0 /d University of 00:00:00 00:00:00 [facility] Tobacco Comment 2020-11-21 2020-11-21 1 pk per day Univers ity of 00:00:00 00:00:00 [facility] Cigarettes smoked 2014-12-31 2014-12-31 Univers ity of current (pack per 00:00:00 00:00:00 [facility] ) - Reported Branch Cigarette 2014-12-31 2014-12-31 University of pack-years 00:00:00 00:00:00 [facility] Tobacco use and 2014-12-31 2014-12-31 Never used Universit y of exposure 00:00:00 00:00:00 [facility] Sex [birth year] Universit y of 00:00:00 00:00:00 [facility] Smoking Status Start Date Stop Date Source Current every day smoker 2014-12-31 00:00:00 Uni versity of [facility] Medications Ordered Filled Start Stop Current Ordering Indication Dosage Frequency Signature Comments Components Source Medication Medication Date Date Medication? Clinician (SIG) Name Name LISINOPRIL 2020-09 Yes TAKE ONE Uni vers 10 mg 2-01 TABLET BY ity of tablet 00:00: MOUTH [place] DAILY Medical Branch prazosin 2 2020-09 Yes Univers mg capsule 0-13 ity of 00:00: [place] 00 Medical Branch prazosin 2 2020-09 Yes Univers mg capsule 0-13 ity of 00:00: [place] [facility] carBAMazepi 2020-09 Yes Univer s ne 200 mg 0-01 ity of tablet 00:00: [place] 00 Medical Branch FLUoxetine 2020-09 Yes Univers 40 mg 0-01 ity of capsule 00:00: [place] 00 Medical Branch carBAMazepi 2020-09 Yes Univer s ne 200 mg 0-01 ity of tablet 00:00: [place] [facility] FLUoxetine 2020-09 Yes Univers 40 mg 0-01 ity of capsule 00:00: [place] [facility] ziprasidone 2020-1 2020- No Unive rs 80 mg 0-01 11-21 ity of capsule 00:00: 00:00 [place] 00 :00 Medical Branch lisinopriL 2020-0 Yes Univers 10 mg 9-22 ity of tablet 00:00: [place] 00 Medical Branch lisinopriL 2020-0 1- No Univer s 10 mg 9-22 12-01 ity of tablet 00:00: 00:00 [place] 00 :00 Medical Branch levothyroxi 2020-0 Yes 25ug Take 1 Univ ers ne 25 mcg 7-02 tablet by ity o f tablet 00:00: mouth [place] [id number] every Medical morning. Branch midodrine 0 Yes [id number] Take 1 Un [place] 2.5 mg 7-02 tablet by ity of tablet 00:00: mouth [place] [address] daily PRN Medical if BP Branch <80/60. glipiZIDE 5 0 Yes [id number] 5mg Take 1 Univers mg tablet 7-02 tablet by ity o f 00:00: mouth [place] 00 daily. Medical Branch levothyroxi Yes 25ug Take 1 Univ ers ne 25 mcg 7-02 tablet by ity o f tablet 00:00: mouth [place] 00 every Medical morning. Branch midodrine Yes [id number] Take 1 Un [place] 2.5 mg 7-02 tablet by ity of tablet 00:00: mouth [place] 00 daily PRN Medical if BP Branch <80/60. glipiZIDE 5 Yes [id number] 5mg Take 1 Univers mg tablet 7-02 tablet by ity o f 00:00: mouth [place] 00 daily. Medical Branch levothyroxi Yes 25ug Take 1 Univ ers ne 25 mcg 7-02 tablet by ity o f tablet 00:00: mouth [place] 00 every Medical morning. Branch midodrine Yes [id number] Take 1 Un [place] 2.5 mg 7-02 tablet by ity of tablet 00:00: mouth [place] 00 daily PRN Medical if BP Branch <80/60. glipiZIDE 5 Yes [id number] 5mg Take 1 Univers mg tablet 7-02 tablet by ity o f 00:00: mouth [place] 00 daily. Medical Branch levothyroxi Yes 25ug Take 1 Univ ers ne 25 mcg 7-02 tablet by ity o f tablet 00:00: mouth [place] 00 every Medical morning. Branch midodrine Yes [id number] Take 1 Un [place] 2.5 mg 7-02 tablet by ity of tablet 00:00: mouth [place] 00 daily PRN Medical if BP Branch <80/60. glipiZIDE 5 Yes [id number] 5mg Take 1 Univers mg tablet 7-02 tablet by ity o f 00:00: mouth [place] 00 daily. Medical Branch levothyroxi Yes 25ug Take 1 Univ ers ne 25 mcg 7-02 tablet by ity o f tablet 00:00: mouth [place] 00 every Medical morning. Branch midodrine Yes [id number] Take 1 Un [place] 2.5 mg 7-02 tablet by ity of tablet 00:00: mouth [place] 00 daily PRN Medical if BP Branch <80/60. glipiZIDE 5 2020-0 Yes [id number] 5mg Take 1 Univers mg tablet 7-02 tablet by ity o f 00:00: mouth [place] 00 daily. Medical Branch levothyroxi 0 Yes 25ug Take 1 Univ ers ne 25 mcg 7-02 tablet by ity o f tablet 00:00: mouth [place] 00 every Medical morning. Branch midodrine Yes [id number] Take 1 Un [place] 2.5 mg 7-02 tablet by ity of tablet 00:00: mouth [place] 00 daily PRN Medical if BP Branch <80/60. levothyroxi Yes 25ug Take 1 Univ ers ne 25 mcg 7-02 tablet by ity o f tablet 00:00: mouth [place] 00 every Medical morning. Branch midodrine Yes [id number] Take 1 Un [place] 2.5 mg 7-02 tablet by ity of tablet 00:00: mouth [place] 00 daily PRN Medical if BP Branch <80/60. glipiZIDE 5 0 Yes [id number] 5mg Take 1 Univers mg tablet 7-02 tablet by ity o f 00:00: mouth [place] 00 daily. Medical Branch glipiZIDE 5 Yes [id number] 5mg Take 1 Univers mg tablet 7-02 tablet by ity o f 00:00: mouth [place] 00 daily. Medical Branch levothyroxi Yes 25ug Take 1 Univ ers ne 25 mcg 7-02 tablet by ity o f tablet 00:00: mouth [place] 00 every Medical morning. Branch midodrine 2020- Yes [id number] Take 1 Un [place] 2.5 mg 7-02 tablet by ity of tablet 00:00: mouth [place] 00 daily PRN Medical if BP Branch <80/60. glipiZIDE 5 2020-0 Yes [id number] 5mg Take 1 Univers mg tablet 7-02 tablet by ity o f 00:00: mouth [place] 00 daily. Medical Branch levothyroxi Yes 25ug Take 1 Univ ers ne 25 mcg 7-02 tablet by ity o f tablet 00:00: mouth [place] 00 every Medical morning. Branch midodrine 2020- Yes [id number] Take 1 Un [place] 2.5 mg 7-02 tablet by ity of tablet 00:00: mouth [place] 00 daily PRN Medical if BP Branch <80/60. levothyroxi Yes 25ug Take 1 Univ ers ne 25 mcg 7-02 tablet by ity o f tablet 00:00: mouth [place] 00 every Medical morning. Branch midodrine Yes [id number] Take 1 Un [place] 2.5 mg 7-02 tablet by ity of tablet 00:00: mouth [place] 00 daily PRN Medical if BP Branch <80/60. glipiZIDE 5 Yes [id number] 5mg Take 1 Univers mg tablet 7-02 tablet by ity o f 00:00: mouth [place] 00 daily. Medical Branch glipiZIDE 5 Yes [id number] 5mg Take 1 Univers mg tablet 7-02 tablet by ity o f 00:00: mouth [place] 00 daily. Medical Branch levothyroxi Yes 25ug Take 1 Univ ers ne 25 mcg 7-02 tablet by ity o f tablet 00:00: mouth [place] 00 every Medical morning. Branch midodrine Yes [id number] Take 1 Un [place] 2.5 mg 7-02 tablet by ity of tablet 00:00: mouth [place] 00 daily PRN Medical if BP Branch <80/60. glipiZIDE 5 Yes [id number] 5mg Take 1 Univers mg tablet 7-02 tablet by ity o f 00:00: mouth [place] 00 daily. Medical Branch levothyroxi Yes 25ug Take 1 Univ ers ne 25 mcg 7-02 tablet by ity o f tablet 00:00: mouth [place] 00 every Medical morning. Branch midodrine Yes [id number] Take 1 Un [place] 2.5 mg 7-02 tablet by ity of tablet 00:00: mouth [place] 00 daily PRN Medical if BP Branch <80/60. glipiZIDE 5 Yes [id number] 5mg Take 1 Univers mg tablet 7-02 tablet by ity o f 00:00: mouth [place] 00 daily. Medical Branch ATORVASTATI Yes [id number] TAKE ONE Univers N 40 mg 3-31 TABLET BY ity of tablet 00:00: MOUTH AT [place] 00 BEDTIME Medical Branch FUROSEMIDE Yes [id number] TAKE ONE Univers 20 mg 3-31 TABLET BY ity of tablet 00:00: MOUTH [place] DAILY [facility] Yes [id number] TAKE ONE Univers N 40 mg 3-31 TABLET BY ity of tablet 00:00: MOUTH AT [place] [facility] Yes [id number] TAKE ONE Univers N 40 mg 3-31 TABLET BY ity of tablet 00:00: MOUTH AT [place] [facility] Yes [id number] TAKE ONE Univers N 40 mg 3-31 TABLET BY ity of tablet 00:00: MOUTH AT [place] [facility] Yes [id number] TAKE ONE Univers N 40 mg 3-31 TABLET BY ity of tablet 00:00: MOUTH AT [place] [facility] Yes [id number] TAKE ONE Univers N 40 mg 3-31 TABLET BY ity of tablet 00:00: MOUTH AT [place] [facility] Yes [id number] TAKE ONE Univers N 40 mg 3-31 TABLET BY ity of tablet 00:00: MOUTH AT [place] [facility] Yes [id number] TAKE ONE Univers N 40 mg 3-31 TABLET BY ity of tablet 00:00: MOUTH AT [place] [facility] Yes [id number] TAKE ONE Univers N 40 mg 3-31 TABLET BY ity of tablet 00:00: MOUTH AT [place] [facility] Yes [id number] TAKE ONE Univers N 40 mg 3-31 TABLET BY ity of tablet 00:00: MOUTH AT [place] [facility] Yes [id number] TAKE ONE Univers N 40 mg 3-31 TABLET BY ity of tablet 00:00: MOUTH AT [address] [facility] Yes [id number] TAKE ONE Univers N 40 mg 3-31 TABLET BY ity of tablet 00:00: MOUTH AT [address] [facility] Yes [id number] TAKE ONE Univers N 40 mg 3-31 TABLET BY ity of tablet 00:00: MOUTH AT [place] 00 BEDTIME Medical Branch ATORVASTATI 0 Yes [id number] TAKE ONE Univers N 40 mg 3-31 TABLET BY ity of tablet 00:00: MOUTH AT [place] BEDTIME Medical Branch ATORVASTATI 0 Yes [id number] TAKE ONE Univers N 40 mg 3-31 TABLET BY ity of tablet 00:00: MOUTH AT [place] BEDTIME Medical Branch ATORVASTATI 0 Yes [id number] TAKE ONE Univers N 40 mg 3-31 TABLET BY ity of tablet 00:00: MOUTH AT [place] BEDTIME Medical Branch ATORVASTATI 0 Yes [id number] TAKE ONE Univers N 40 mg 3-31 TABLET BY ity of tablet 00:00: [facility] [place] [facility] ATORVASTAT[facility] Yes [id number] TAKE ONE Univers N 40 mg 3-31 TABLET BY ity of tablet 00:00: [facility]TH AT [place] [facility] FUROSEMIDE 2020-0 2021- No [id number] TAKE ONE Univers 20 mg 3-31 04-02 TABLET BY ity of tablet 00:00: 00:00 MOUTH [place] 00 : DAILY Medical Branch FUROSEMIDE 2020-0 2020- No [id number] TAKE ONE Univers 20 mg 3-31 04-02 TABLET BY ity of tablet 00:00: 00:00 MOUTH [place] 00 :00 DAILY Medical Branch midodrine Yes [id number] Take 1 Un [place] 2.5 mg 3-25 tablet by ity of tablet 00:00: mouth [place] daily PRN Medical if BP Branch <80/60. midodrine Yes [id number] Take 1 Un [place] 2.5 mg 3-25 tablet by ity of tablet 00:00: mouth [place] daily PRN Medical if BP Branch <80/60. midodrine Yes [id number] Take 1 [place] 2.5 mg 3-25 tablet by ity of tablet 00:00: mouth [place] daily PRN Medical if BP Branch <80/60. midodrine Yes [id number] Take 1 Un [place] 2.5 mg 3-25 tablet by ity of tablet 00:00: mouth [place] daily PRN Medical if BP Branch <80/60. midodrine Yes [id number] Take 1 Un [place] 2.5 mg 3-25 tablet by ity of tablet 00:00: mouth [place] 00 daily PRN Medical if BP Branch <80/60. midodrine Yes [id number] Take 1 Un [place] 2.5 mg 3-25 tablet by ity of tablet 00:00: mouth [place] 00 daily PRN Medical if BP Branch <80/60. midodrine Yes [id number] Take 1 Un [place] 2.5 mg 3-25 tablet by ity of tablet 00:00: mouth [place] 00 daily PRN Medical if BP Branch <80/60. midodrine Yes [id number] Take 1 [place] 2.5 mg 3-25 tablet by ity of tablet 00:00: mouth [place] 00 daily PRN Medical if BP Branch <80/60. midodrine Yes [id number] Take 1 [place] 2.5 mg 3-25 tablet by ity of tablet 00:00: mouth [place] 00 daily PRN Medical if BP Branch <80/60. midodrine Yes [id number] Take 1 [place] 2.5 mg 3-25 tablet by ity of tablet 00:00: mouth [place] 00 daily PRN Medical if BP Branch <80/60. midodrine 2020- No [id number] Take 1 U nivers 2.5 mg 3-25 07-02 tablet by ity of tablet 00:00: 00:00 mouth [place] 00 :00 daily PRN Medical if BP Branch <80/60. midodrine 2020- No [id number] Take 1 U nivers 2.5 mg 3-25 -02 tablet by ity of tablet 00:00: 00:00 mouth [place] 00 :00 daily PRN Medical if BP Branch <80/60. prazosin 2020- No 2mg Take 2 mg Uni vers HCl -25 11-19 by mouth 2 ity of (PRAZOSIN 17:08: 00:00 (two) [place] ORAL) 09 :00 times Medical daily as Branch needed for Insomnia. prazosin 2020- No 2mg Take 2 mg Uni vers HCl 3-19 -19 by mouth 2 ity of (PRAZOSIN 17:08: 00:00 (two) [place] ORAL) 09 :00 times Medical daily as Branch needed for Insomnia. nicotine 14 2020-0 Yes [id number] 1{patch Apply 1 Univers mg/24 hr 3-19 } Patch to ity of patch 00:00: area(s) [place] 00 every 24 Medical (twenty-fo Branch ur) hours. Apply 21mg patch daily x 6 weeks; then apply 14mf patch daily x 2 weeks; then apply 7mg patch daily x 2 weeks. Stop smoking on initiation of therapy nicotine Yes [id number] 1{patch Apply 1 Univers mg/24 hr 3-19 } Patch to ity of patch 00:00: area(s) [place] 00 daily. Medical Apply 21mg Branch patch daily x 6 weeks; then apply 14mf patch daily x 2 weeks; then apply 7mg patch daily x 2 weeks. Stop smoking on initiation of therapy nicotine Yes [id number] 1{patch Apply 1 Univers mg/24 hr 3-19 } Patch to ity of patch 00:00: area(s) [place] 00 every 24 Medical (twenty-fo Branch ur) hours. Apply 21mg patch daily x 6 weeks; then apply 14mf patch daily x 2 weeks; then apply 7mg patch daily x 2 weeks. Stop smoking on initiation of therapy nicotine Yes [id number] 1{patch Apply 1 Univers mg/24 hr 3-19 } Patch to ity of patch 00:00: area(s) [place] 00 every 24 Medical (twenty-fo Branch ur) hours. Apply 21mg patch daily x 6 weeks; then apply 14mf patch daily x 2 weeks; then apply 7mg patch daily x 2 weeks. Stop smoking on initiation of therapy nicotine Yes [id number] 1{patch Apply 1 Univers mg/24 hr 3-19 } Patch to ity of patch 00:00: area(s) [place] 00 daily. Medical Apply 21mg Branch patch daily x 6 weeks; then apply 14mf patch daily x 2 weeks; then apply 7mg patch daily x 2 weeks. Stop smoking on initiation of therapy nicotine Yes [id number] 1{patch Apply 1 Univers mg/24 hr 3-19 } Patch to ity of patch 00:00: area(s) [place] 00 every 24 Medical (twenty-fo Branch ur) hours. Apply 21mg patch daily x 6 weeks; then apply 14mf patch daily x 2 weeks; then apply 7mg patch daily x 2 weeks. Stop smoking on initiation of therapy nicotine Yes [id number] 1{patch Apply 1 Univers mg/24 hr 3-19 } Patch to ity of patch 00:00: area(s) [place] 00 every 24 Medical (twenty-fo Branch ur) hours. Apply 21mg patch daily x 6 weeks; then apply 14mf patch daily x 2 weeks; then apply 7mg patch daily x 2 weeks. Stop smoking on initiation of therapy nicotine Yes [id number] 1{patch Apply 1 Univers mg/24 hr 3-19 } Patch to ity of patch 00:00: area(s) [place] 00 daily. Medical Apply 21mg Branch patch daily x 6 weeks; then apply 14mf patch daily x 2 weeks; then apply 7mg patch daily x 2 weeks. Stop smoking on initiation of therapy nicotine Yes [id number] 1{patch Apply 1 Univers mg/24 hr 3-19 } Patch to ity of patch 00:00: area(s) [place] 00 every 24 Medical (twenty-fo Branch ur) hours. Apply 21mg patch daily x 6 weeks; then apply 14mf patch daily x 2 weeks; then apply 7mg patch daily x 2 weeks. Stop smoking on initiation of therapy nicotine Yes [id number] 1{patch Apply 1 Univers mg/24 hr 3-19 } Patch to ity of patch 00:00: area(s) [place] 00 every 24 Medical (twenty-fo Branch ur) hours. Apply 21mg patch daily x 6 weeks; then apply 14mf patch daily x 2 weeks; then apply 7mg patch daily x 2 weeks. Stop smoking on initiation of therapy nicotine Yes [id number] 1{patch Apply 1 Univers mg/24 hr 3-19 } Patch to ity of patch 00:00: area(s) [place] 00 daily. Medical Apply 21mg Branch patch daily x 6 weeks; then apply 14mf patch daily x 2 weeks; then apply 7mg patch daily x 2 weeks. Stop smoking on initiation of therapy nicotine Yes [id number] 1{patch Apply 1 Univers mg/24 hr 3-19 } Patch to ity of patch 00:00: area(s) [place] 00 every 24 Medical (twenty-fo Branch ur) hours. Apply 21mg patch daily x 6 weeks; then apply 14mf patch daily x 2 weeks; then apply 7mg patch daily x 2 weeks. Stop smoking on initiation of therapy nicotine Yes [id number] 1{patch Apply 1 Univers mg/24 hr 3-19 } Patch to ity of patch 00:00: area(s) [place] 00 every 24 Medical (twenty-fo Branch ur) hours. Apply 21mg patch daily x 6 weeks; then apply 14mf patch daily x 2 weeks; then apply 7mg patch daily x 2 weeks. Stop smoking on initiation of therapy nicotine Yes [id number] 1{patch Apply 1 Univers mg/24 hr 3-19 } Patch to ity of patch 00:00: area(s) [place] 00 daily. Medical Apply 21mg Branch patch daily x 6 weeks; then apply 14mf patch daily x 2 weeks; then apply 7mg patch daily x 2 weeks. Stop smoking on initiation of therapy nicotine Yes [id number] 1{patch Apply 1 Univers mg/24 hr 3-19 } Patch to ity of patch 00:00: area(s) [place] 00 every 24 Medical ([facility] Branch ur) hours. Apply 21mg patch daily x 6 weeks; then apply 14mf patch daily x 2 weeks; then apply 7mg patch daily x 2 weeks. Stop smoking on initiation of therapy nicotine Yes [id number] 1{patch Apply 1 Univers mg/24 hr 3-19 } Patch to ity of patch 00:00: area(s) [place] 00 every 24 Medical ([facility] Branch ur) hours. Apply 21mg patch daily x 6 weeks; then apply 14mf patch daily x 2 weeks; then apply 7mg patch daily x 2 weeks. Stop smoking on initiation of therapy nicotine Yes [id number] 1{patch Apply 1 Univers mg/24 hr 3-19 } Patch to ity of patch 00:00: area(s) [place] 00 every 24 Medical (twenty-fo Branch ur) hours. Apply 21mg patch daily x 6 weeks; then apply 14mf patch daily x 2 weeks; then apply 7mg patch daily x 2 weeks. Stop smoking on initiation of therapy nicotine Yes [id number] 1{patch Apply 1 Univers mg/24 hr 3-19 } Patch to ity of patch 00:00: area(s) [place] 00 daily. Medical Apply 21mg Branch patch daily x 6 weeks; then apply 14mf patch daily x 2 weeks; then apply 7mg patch daily x 2 weeks. Stop smoking on initiation of therapy nicotine Yes [id number] 1{patch Apply 1 Univers mg/24 hr 3-19 } Patch to ity of patch 00:00: area(s) [place] 00 every 24 Medical (twenty-fo Branch ur) hours. Apply 21mg patch daily x 6 weeks; then apply 14mf patch daily x 2 weeks; then apply 7mg patch daily x 2 weeks. Stop smoking on initiation of therapy nicotine Yes [id number] 1{patch Apply 1 Univers mg/24 hr 3-19 } Patch to ity of patch 00:00: area(s) [place] 00 daily. Medical Apply 21mg Branch patch daily x 6 weeks; then apply 14mf patch daily x 2 weeks; then apply 7mg patch daily x 2 weeks. Stop smoking on initiation of therapy nicotine Yes [id number] 1{patch Apply 1 Univers mg/24 hr 3-19 } Patch to ity of patch 00:00: area(s) [place] 00 every 24 Medical (twenty-fo Branch ur) hours. Apply 21mg patch daily x 6 weeks; then apply 14mf patch daily x 2 weeks; then apply 7mg patch daily x 2 weeks. Stop smoking on initiation of therapy nicotine Yes [id number] 1{patch Apply 1 Univers mg/24 hr 3-19 } Patch to ity of patch 00:00: area(s) [place] 00 every 24 Medical (twenty-fo Branch ur) hours. Apply 21mg patch daily x 6 weeks; then apply 14mf patch daily x 2 weeks; then apply 7mg patch daily x 2 weeks. Stop smoking on initiation of therapy nicotine 2020- Yes [id number] 1{patch Apply 1 Univers mg/24 hr 3-19 } Patch to ity of patch 00:00: area(s) [place] 00 daily. Medical Apply 21mg Branch patch daily x 6 weeks; then apply 14mf patch daily x 2 weeks; then apply 7mg patch daily x 2 weeks. Stop smoking on initiation of therapy nicotine 2020- Yes [id number] 1{patch Apply 1 Univers mg/24 hr 3-19 } Patch to ity of patch 00:00: area(s) [place] 00 every 24 Medical (twenty-fo Branch ur) hours. Apply 21mg patch daily x 6 weeks; then apply 14mf patch daily x 2 weeks; then apply 7mg patch daily x 2 weeks. Stop smoking on initiation of therapy nicotine 2020- Yes [id number] 1{patch Apply 1 Univers mg/24 hr 3-19 } Patch to ity of patch 00:00: area(s) [place] 00 every 24 Medical (twenty-fo Branch ur) hours. Apply 21mg patch daily x 6 weeks; then apply 14mf patch daily x 2 weeks; then apply 7mg patch daily x 2 weeks. Stop smoking on initiation of therapy nicotine Yes [id number] 1{patch Apply 1 Univers mg/24 hr 3-19 } Patch to ity of patch 00:00: area(s) [place] 00 daily. Medical Apply 21mg Branch patch daily x 6 weeks; then apply 14mf patch daily x 2 weeks; then apply 7mg patch daily x 2 weeks. Stop smoking on initiation of therapy nicotine Yes [id number] 1{patch Apply 1 [facility] mg/24 hr 3-19 } Patch to ity of patch 00:00: area(s) [place] 00 every 24 Medical (twenty-fo Branch ur) hours. Apply 21mg patch daily x 6 weeks; then apply 14mf patch daily x 2 weeks; then apply 7mg patch daily x 2 weeks. Stop smoking on initiation of therapy nicotine Yes [id number] 1{patch Apply 1 [facility] mg/24 hr 3-19 } Patch to ity of patch 00:00: area(s) [place] 00 every 24 Medical (twenty-fo Branch ur) hours. Apply 21mg patch daily x 6 weeks; then apply 14mf patch daily x 2 weeks; then apply 7mg patch daily x 2 weeks. Stop smoking on initiation of therapy nicotine Yes [id number] 1{patch Apply 1 [facility] mg/24 hr 3-19 } Patch to ity of patch 00:00: area(s) [place] 00 daily. Medical Apply 21mg Branch patch daily x 6 weeks; then apply 14mf patch daily x 2 weeks; then apply 7mg patch daily x 2 weeks. Stop smoking on initiation of therapy nicotine Yes [id number] 1{patch Apply 1 [facility] mg/24 hr 3-19 } Patch to ity of patch 00:00: area(s) [place] 00 every 24 Medical (twenty-fo Branch ur) hours. Apply 21mg patch daily x 6 weeks; then apply 14mf patch daily x 2 weeks; then apply 7mg patch daily x 2 weeks. Stop smoking on initiation of therapy nicotine Yes [id number] 1{patch Apply 1 [facility] mg/24 hr 3-19 } Patch to ity of patch 00:00: area(s) [place] 00 every 24 Medical (twenty-fo Branch ur) hours. Apply 21mg patch daily x 6 weeks; then apply 14mf patch daily x 2 weeks; then apply 7mg patch daily x 2 weeks. Stop smoking on initiation of therapy nicotine Yes [id number] 1{patch Apply 1 [facility] mg/24 hr 3-19 } Patch to ity of patch 00:00: area(s) [place] 00 daily. Medical Apply 21mg Branch patch daily x 6 weeks; then apply 14mf patch daily x 2 weeks; then apply 7mg patch daily x 2 weeks. Stop smoking on initiation of therapy nicotine Yes [id number] 1{patch Apply 1 [facility] mg/24 hr 3-19 } Patch to ity of patch 00:00: area(s) [place] 00 every 24 Medical (twenty-fo Branch ur) hours. Apply 21mg patch daily x 6 weeks; then apply 14mf patch daily x 2 weeks; then apply 7mg patch daily x 2 weeks. Stop smoking on initiation of therapy nicotine Yes [id number] 1{patch Apply 1 [facility] mg/24 hr 3-19 } Patch to ity of patch 00:00: area(s) [place] 00 every 24 Medical (twenty-fo Branch ur) hours. Apply 21mg patch daily x 6 weeks; then apply 14mf patch daily x 2 weeks; then apply 7mg patch daily x 2 weeks. Stop smoking on initiation of therapy nicotine Yes [id number] 1{patch Apply 1 [facility] mg/24 hr 3-19 } Patch to ity of patch 00:00: area(s) [place] 00 daily. Medical Apply 21mg Branch patch daily x 6 weeks; then apply 14mf patch daily x 2 weeks; then apply 7mg patch daily x 2 weeks. Stop smoking on initiation of therapy nicotine Yes [id number] 1{patch Apply 1 [facility] mg/24 hr 3-19 } Patch to ity of patch 00:00: area(s) [place] 00 every 24 Medical (twenty-fo Branch ur) hours. Apply 21mg patch daily x 6 weeks; then apply 14mf patch daily x 2 weeks; then apply 7mg patch daily x 2 weeks. Stop smoking on initiation of therapy nicotine Yes [id number] 1{patch Apply 1 [facility] mg/24 hr 3-19 } Patch to ity of patch 00:00: area(s) [place] 00 every 24 Medical (twenty-fo Branch ur) hours. Apply 21mg patch daily x 6 weeks; then apply 14mf patch daily x 2 weeks; then apply 7mg patch daily x 2 weeks. Stop smoking on initiation of therapy nicotine Yes [id number] 1{patch Apply 1 [facility] mg/24 hr 3-19 } Patch to ity of patch 00:00: area(s) [place] 00 daily. Medical Apply 21mg Branch patch daily x 6 weeks; then apply 14mf patch daily x 2 weeks; then apply 7mg patch daily x 2 weeks. Stop smoking on initiation of therapy nicotine Yes [id number] 1{patch Apply 1 [facility] mg/24 hr 3-19 } Patch to ity of patch 00:00: area(s) [place] 00 every 24 Medical (twenty-fo Branch ur) hours. Apply 21mg patch daily x 6 weeks; then apply 14mf patch daily x 2 weeks; then apply 7mg patch daily x 2 weeks. Stop smoking on initiation of therapy nicotine Yes [id number] 1{patch Apply 1 [facility] mg/24 hr 3-19 } Patch to ity of patch 00:00: area(s) [place] 00 every 24 Medical (twenty-fo Branch ur) hours. Apply 21mg patch daily x 6 weeks; then apply 14mf patch daily x 2 weeks; then apply 7mg patch daily x 2 weeks. Stop smoking on initiation of therapy nicotine 2020- Yes [id number] 1{patch Apply 1 [facility] mg/24 hr 3-19 } Patch to ity of patch 00:00: area(s) [place] 00 daily. Medical Apply 21mg Branch patch daily x 6 weeks; then apply 14mf patch daily x 2 weeks; then apply 7mg patch daily x 2 weeks. Stop smoking on initiation of therapy midodrine Yes [id number] 2.5mg Take 1 U nivers 2.5 mg 3-19 tablet by ity of tablet 00:00: [facility] [place] 00 daily. Medical Branch nicotine Yes [id number] 1{patch Apply 1 [facility] mg/24 hr 3-19 } Patch to ity of patch 00:00: area(s) [place] 00 every 24 Medical (twenty-fo Branch ur) hours. Apply 21mg patch daily x 6 weeks; then apply 14mf patch daily x 2 weeks; then apply 7mg patch daily x 2 weeks. Stop smoking on initiation of therapy nicotine Yes [id number] 1{patch Apply 1 [facility] mg/24 hr 3-19 } Patch to ity of patch 00:00: area(s) [place] 00 every 24 Medical (twenty-fo Branch ur) hours. Apply 21mg patch daily x 6 weeks; then apply 14mf patch daily x 2 weeks; then apply 7mg patch daily x 2 weeks. Stop smoking on initiation of therapy nicotine Yes [id number] 1{patch Apply 1 [facility] mg/24 hr 3-19 } Patch to ity of patch 00:00: area(s) [place] 00 daily. Medical Apply 21mg Branch patch daily x 6 weeks; then apply 14mf patch daily x 2 weeks; then apply 7mg patch daily x 2 weeks. Stop smoking on initiation of therapy nicotine Yes [id number] 1{patch Apply 1 [facility] mg/24 hr 3-19 } Patch to ity of patch 00:00: area(s) [place] 00 every 24 Medical (twenty-fo Branch ur) hours. Apply 21mg patch daily x 6 weeks; then apply 14mf patch daily x 2 weeks; then apply 7mg patch daily x 2 weeks. Stop smoking on initiation of therapy nicotine Yes [id number] 1{patch Apply 1 [facility] mg/24 hr 3-19 } Patch to ity of patch 00:00: area(s) [place] 00 every 24 Medical (twenty-fo Branch ur) hours. Apply 21mg patch daily x 6 weeks; then apply 14mf patch daily x 2 weeks; then apply 7mg patch daily x 2 weeks. Stop smoking on initiation of therapy nicotine Yes [id number] 1{patch Apply 1 [facility] mg/24 hr 3-19 } Patch to ity of patch 00:00: area(s) [place] 00 daily. Medical Apply 21mg Branch patch daily x 6 weeks; then apply 14mf patch daily x 2 weeks; then apply 7mg patch daily x 2 weeks. Stop smoking on initiation of therapy nicotine Yes [id number] 1{patch Apply 1 [facility] mg/24 hr 3-19 } Patch to ity of patch 00:00: area(s) [place] 00 every 24 Medical (twenty-fo Branch ur) hours. Apply 21mg patch daily x 6 weeks; then apply 14mf patch daily x 2 weeks; then apply 7mg patch daily x 2 weeks. Stop smoking on initiation of therapy nicotine Yes [id number] 1{patch Apply 1 [facility] mg/24 hr 3-19 } Patch to ity of patch 00:00: area(s) [place] 00 every 24 Medical (twenty-fo Branch ur) hours. Apply 21mg patch daily x 6 weeks; then apply 14mf patch daily x 2 weeks; then apply 7mg patch daily x 2 weeks. Stop smoking on initiation of therapy nicotine Yes [id number] 1{patch Apply 1 [facility] mg/24 hr 3-19 } Patch to ity of patch 00:00: area(s) [place] 00 daily. Medical Apply 21mg Branch patch daily x 6 weeks; then apply 14mf patch daily x 2 weeks; then apply 7mg patch daily x 2 weeks. Stop smoking on initiation of therapy nicotine Yes [id number] 1{patch Apply 1 [facility] mg/24 hr 3-19 } Patch to ity of patch 00:00: area(s) [place] 00 every 24 Medical (twenty-fo Branch ur) hours. Apply 21mg patch daily x 6 weeks; then apply 14mf patch daily x 2 weeks; then apply 7mg patch daily x 2 weeks. Stop smoking on initiation of therapy nicotine Yes [id number] 1{patch Apply 1 [facility] mg/24 hr 3-19 } Patch to ity of patch 00:00: area(s) [place] 00 every 24 Medical (twenty-fo Branch ur) hours. Apply 21mg patch daily x 6 weeks; then apply 14mf patch daily x 2 weeks; then apply 7mg patch daily x 2 weeks. Stop smoking on initiation of therapy nicotine Yes [id number] 1{patch Apply 1 [facility] mg/24 hr 3-19 } Patch to ity of patch 00:00: area(s) [place] 00 daily. Medical Apply 21mg Branch patch daily x 6 weeks; then apply 14mf patch daily x 2 weeks; then apply 7mg patch daily x 2 weeks. Stop smoking on initiation of therapy nicotine Yes [id number] 1{patch Apply 1 [facility] mg/24 hr 3-19 } Patch to ity of patch 00:00: area(s) [place] 00 every 24 Medical (twenty-fo Branch ur) hours. Apply 21mg patch daily x 6 weeks; then apply 14mf patch daily x 2 weeks; then apply 7mg patch daily x 2 weeks. Stop smoking on initiation of therapy nicotine Yes [id number] 1{patch Apply 1 [facility] mg/24 hr 3-19 } Patch to ity of patch 00:00: area(s) [place] 00 every 24 Medical (twenty-fo Branch ur) hours. Apply 21mg patch daily x 6 weeks; then apply 14mf patch daily x 2 weeks; then apply 7mg patch daily x 2 weeks. Stop smoking on initiation of therapy nicotine Yes [id number] 1{patch Apply 1 [facility] mg/24 hr 3-19 } Patch to ity of patch 00:00: area(s) [place] 00 daily. Medical Apply 21mg Branch patch daily x 6 weeks; then apply 14mf patch daily x 2 weeks; then apply 7mg patch daily x 2 weeks. Stop smoking on initiation of therapy nicotine Yes [id number] 1{patch Apply 1 [facility] mg/24 hr 3-19 } Patch to ity of patch 00:00: area(s) [place] 00 every 24 Medical (twenty-fo Branch ur) hours. Apply 21mg patch daily x 6 weeks; then apply 14mf patch daily x 2 weeks; then apply 7mg patch daily x 2 weeks. Stop smoking on initiation of therapy nicotine Yes [id number] 1{patch Apply 1 [facility] mg/24 hr 3-19 } Patch to ity of patch 00:00: area(s) [place] 00 every 24 Medical (twenty-fo Branch ur) hours. Apply 21mg patch daily x 6 weeks; then apply 14mf patch daily x 2 weeks; then apply 7mg patch daily x 2 weeks. Stop smoking on initiation of therapy nicotine Yes [id number] 1{patch Apply 1 [facility] mg/24 hr 3-19 } Patch to ity of patch 00:00: area(s) [place] 00 daily. Medical Apply 21mg Branch patch daily x 6 weeks; then apply 14mf patch daily x 2 weeks; then apply 7mg patch daily x 2 weeks. Stop smoking on initiation of therapy nicotine Yes [id number] 1{patch Apply 1 [facility] mg/24 hr 3-19 } Patch to ity of patch 00:00: area(s) [place] 00 every 24 Medical (twenty-fo Branch ur) hours. Apply 21mg patch daily x 6 weeks; then apply 14mf patch daily x 2 weeks; then apply 7mg patch daily x 2 weeks. Stop smoking on initiation of therapy nicotine Yes [id number] 1{patch Apply 1 [facility] mg/24 hr 3-19 } Patch to ity of patch 00:00: area(s) [place] 00 every 24 Medical (twenty-fo Branch ur) hours. Apply 21mg patch daily x 6 weeks; then apply 14mf patch daily x 2 weeks; then apply 7mg patch daily x 2 weeks. Stop smoking on initiation of therapy nicotine Yes [id number] 1{patch Apply 1 [facility] mg/24 hr 3-19 } Patch to ity of patch 00:00: area(s) [place] 00 daily. Medical Apply 21mg Branch patch daily x 6 weeks; then apply 14mf patch daily x 2 weeks; then apply 7mg patch daily x 2 weeks. Stop smoking on initiation of therapy nicotine Yes [id number] 1{patch Apply 1 [facility] mg/24 hr 3-19 } Patch to ity of patch 00:00: area(s) [place] 00 every 24 Medical (twenty-fo Branch ur) hours. Apply 21mg patch daily x 6 weeks; then apply 14mf patch daily x 2 weeks; then apply 7mg patch daily x 2 weeks. Stop smoking on initiation of therapy nicotine Yes [id number] 1{patch Apply 1 [facility] mg/24 hr 3-19 } Patch to ity of patch 00:00: area(s) [place] 00 every 24 Medical (twenty-fo Branch ur) hours. Apply 21mg patch daily x 6 weeks; then apply 14mf patch daily x 2 weeks; then apply 7mg patch daily x 2 weeks. Stop smoking on initiation of therapy nicotine Yes [id number] 1{patch Apply 1 [facility] mg/24 hr 3-19 } Patch to ity of patch 00:00: area(s) [place] 00 daily. Medical Apply 21mg Branch patch daily x 6 weeks; then apply 14mf patch daily x 2 weeks; then apply 7mg patch daily x 2 weeks. Stop smoking on initiation of therapy nicotine Yes [id number] 1{patch Apply 1 [facility] mg/24 hr 3-19 } Patch to ity of patch 00:00: area(s) [place] 00 every 24 Medical (twenty-fo Branch ur) hours. Apply 21mg patch daily x 6 weeks; then apply 14mf patch daily x 2 weeks; then apply 7mg patch daily x 2 weeks. Stop smoking on initiation of therapy nicotine Yes [id number] 1{patch Apply 1 [facility] mg/24 hr 3-19 } Patch to ity of patch 00:00: area(s) [place] 00 every 24 Medical (twenty-fo Branch ur) hours. Apply 21mg patch daily x 6 weeks; then apply 14mf patch daily x 2 weeks; then apply 7mg patch daily x 2 weeks. Stop smoking on initiation of therapy nicotine Yes [id number] 1{patch Apply 1 [facility] mg/24 hr 3-19 } Patch to ity of patch 00:00: area(s) [place] 00 daily. Medical Apply 21mg Branch patch daily x 6 weeks; then apply 14mf patch daily x 2 weeks; then apply 7mg patch daily x 2 weeks. Stop smoking on initiation of therapy nicotine Yes [id number] 1{patch Apply 1 [facility] mg/24 hr 3-19 } Patch to ity of patch 00:00: area(s) [place] 00 every 24 Medical (twenty-fo Branch ur) hours. Apply 21mg patch daily x 6 weeks; then apply 14mf patch daily x 2 weeks; then apply 7mg patch daily x 2 weeks. Stop smoking on initiation of therapy midodrine 2020- No [id number] 2.5mg Take 1 [facility] 2.5 mg 3-19 03-25 tablet by ity of tablet 00:00: 00:00 mouth [place] 00 :00 daily. [facility] Branch midodrine 2020- No [id number] 2.5mg Take 1 [facility] 2.5 mg 3-19 03-25 tablet by ity of tablet 00:00: 00:00 mouth [place] 00 :00 daily. Medical Branch atorvastati Yes 40mg 40 mg, Univ ers n (LIPITOR) 3-17 Oral, QHS, it y of tablet 40 02:00: First dose [place] mg 00 on [facility] 11/22/20 at Branch 2100, Until [...] 40 mg 00 First dose Medical on [facility] 11/22/20 at 0900, Until Discontinu ed, Routine ziprasidone Yes 60mg 60 mg, Univ ers (GEODON) 3-16 Oral, BID ity of capsule 60 13:00: MEALS, [place] mg 00 First dose Medical on [facility] 11/22/20 at 0800, Until Discontinu ed, Routine Sliding Yes Subcutaneo Univ ers Scale 3-16 us, AC, ity of Insulin-Reg 12:30: First dose [place] ular + Fsbg 00 on [facility] 11/22/20 at Branch 0730, Until Discontinu ed, Routine levothyroxi Yes 25ug 25 mcg, Uni vers ne 3-16 Oral, ity of (SYNTHROID) 11:00: QAM-0600, [place] tablet 25 00 First dose Medi arnel mcg on Tue Branch 11/22/20 at 0600, Until Discontinu ed, Routine FLUoxetine 2020- No 60mg Take 60 mg Univers (PROZAC) 40 11-22 by mouth ity of mg capsule 09:55: 00:00 [place]. [place] 26 :00 Medical Branch Iloperidone 202- No 1{tbl} Take 1 Tab Univers (FANAPT) 6 11-22 by mouth 2 it y of mg Tab 09:55: 00:00 (two) [place] 26 :00 times Medical daily. Branch ondansetron Yes 4mg 4 mg, Slow Univers (ZOFRAN 316 IV Push, ity of (PF)) 04:43: Q6HPRN, [place] injection 4 39 Starting Medi arnel mg [facility] 11/21/20 at 2343, Until Discontinu ed, Routine, Nausea and Vomiting (N/V) traMADoL 2020- No 50mg 50 mg, Univer s (ULTRAM) 11-22 03-18 Oral, ity of tablet 50 04:43: 04:42 Q8HPRN, [place] mg 31 :31 Starting Medical [facility] 11/21/20 at 2343, Until [facility] 11/23/20 at 2342, Routine, Pain (scale 4-6) acetaminoph Yes 650mg 650 mg, Un dorothea en 3-16 Oral, ity of (TYLENOL) 04:43: Q6HPRN, [place] tablet 650 30 Starting Medic al mg [facility] 11/21/20 at 2343, Until Discontinu ed, Routine, Pain (scale 1-3) NaCl 0.9% Yes 1000mL at 999 Univ ers (NS) IV 3-16 mL/hr, ity of infusion 02:00: Intravenou [place] as 1,000 mL 00 s, Medical CONTINUOUS Branch , Starting [facility] 11/21/20 at 2100, Until Discontinu ed, Routine NaCl 0.9% 2020- No 1000mL at 999 Uni vers (NS) bolus 11-22 03-16 mL/hr, ity of infusion 00:15: 01:05 1,000 mL, [place] as 1,000 mL 00 :00 IV Medical Infusion, Branch ONCE, 1 dose, 11/21/20 at 1915, STAT meclizine 2020- No 25mg 25 mg, Unive rs (TRAVEL-EAS 11-09 Oral, ity of E 19:30: 18:26 ONCE, 1 [place] (MECLIZINE) 00 :00 dose, Wed Med ical ) tablet 25 11/09/20 at Bra nch mg 1330, SARIAH NaCl 0.9% 2020- No 1000mL at 999 Uni vers (NS) bolus 11-09 mL/hr, ity of infusion 19:30: 19:18 1,000 mL, [place] as 1,000 mL 00 :00 IV Medical Piggyback, Branch ONCE, 1 dose, 11/09/20 at 1330, STAT Miscellaneo Yes [id number] I10 - U [employer] [facility] 11-09 Dispense ity o f Supply Kit 00:00: blood [place] 00 pressure Medical cuff (any Branch brand), take BP at home BID Miscellaneo Yes [id number] I10 - U [employer] [facility] 11-09 Dispense ity o f Supply Kit 00:00: blood [place] 00 pressure Medical cuff (any Branch brand), take BP at home BID Miscellaneo Yes [id number] I10 - U [employer] [facility] 11-09 Dispense ity o f Supply Kit 00:00: blood [place] 00 pressure Medical cuff (any Branch brand), take BP at home BID Miscellaneo 2020-0 Yes [id number] I10 - U [employer] [facility] 11-09 Dispense ity o f Supply Kit 00:00: blood [place] 00 pressure Medical cuff (any Branch brand), take BP at home BID Miscellaneo 2020-0 Yes [id number] I10 - U [employer] [facility] 11-09 Dispense ity o f Supply Kit 00:00: blood [place] 00 pressure Medical cuff (any Branch brand), take BP at home BID Miscellaneo 2020-0 Yes [id number] I10 - U [employer] [facility] 11-09 Dispense ity o f Supply Kit 00:00: blood [place] 00 pressure Medical cuff (any Branch brand), take BP at home BID Miscellaneo 2021-0 Yes [id number] I10 - U [employer] [facility] 3 Dispense ity o f Supply Kit 00:00: blood [place] 00 pressure Medical cuff (any Branch brand), take BP at home BID Miscellaneo 2020-0 Yes [id number] I10 - U [facility] 11-09 Dispense ity o f Supply Kit 00:00: blood [place] 00 pressure Medical cuff (any Branch brand), take BP at home BID Miscellaneo 2020-0 Yes [id number] I10 - U [facility] 11-09 Dispense ity o f Supply Kit 00:00: blood [place] 00 pressure Medical cuff (any Branch brand), take BP at home BID Miscellaneo 2020-0 Yes [id number] I10 - U [facility] 11-09 Dispense ity o f Supply Kit 00:00: blood [place] 00 pressure Medical cuff (any Branch brand), take BP at home BID Miscellaneo 2020-0 Yes [id number] I10 - U [facility] 11-09 Dispense ity o f Supply Kit 00:00: blood [place] 00 pressure Medical cuff (any Branch brand), take BP at home BID Miscellaneo 2020-0 Yes [id number] I10 - U [facility] 11-09 Dispense ity o f Supply Kit 00:00: blood [place] 00 pressure Medical cuff (any Branch brand), take BP at home BID Miscellaneo 2020-0 Yes [id number] I10 - U [facility] 11-09 Dispense ity o f Supply Kit 00:00: blood [place] 00 pressure Medical cuff (any Branch brand), take BP at home BID Miscellaneo 2020-0 Yes [id number] I10 - U [facility] 11-09 Dispense ity o f Supply Kit 00:00: blood [place] 00 pressure Medical cuff (any Branch brand), take BP at home BID Miscellaneo 2020-0 Yes [id number] I10 - U [facility] 3 Dispense ity o f Supply Kit 00:00: blood [place] 00 pressure Medical cuff (any Branch brand), take BP at home BID Miscellaneo 2020-0 Yes [id number] I10 - U [facility] 3 Dispense ity o f Supply Kit 00:00: blood [place] 00 pressure Medical cuff (any Branch brand), take BP at home BID Miscellaneo 202-0 Yes [id number] I10 - U [facility] 3 Dispense ity o f Supply Kit 00:00: blood [place] 00 pressure Medical cuff (any Branch brand), take BP at home BID Miscellaneo 2020-0 Yes [id number] I10 - [facility] 3 Dispense ity o f Supply Kit 00:00: blood [place] 00 pressure Medical cuff (any Branch brand), take BP at home BID Miscellaneo 2020-0 Yes [id number] I10 - U [facility] 11-09 Dispense ity o f Supply Kit 00:00: blood [place] 00 pressure Medical cuff (any Branch brand), take BP at home BID Miscellaneo 2020-0 Yes [id number] I10 - U [facility] 11-09 Dispense ity o f Supply Kit 00:00: blood [place] 00 pressure Medical cuff (any Branch brand), take BP at home BID Miscellaneo 2020-0 Yes [id number] I10 - U [facility] 11-09 Dispense ity o f Supply Kit 00:00: blood [place] 00 pressure Medical cuff (any Branch brand), take BP at home BID Miscellaneo 2020-0 Yes [id number] I10 - U [facility] 11-09 Dispense ity o f Supply Kit 00:00: blood [place] 00 pressure Medical cuff (any Branch brand), take BP at home BID Miscellaneo 2020-0 Yes [id number] I10 - U [employer] [facility] 11-09 Dispense ity o f Supply Kit 00:00: blood [place] 00 pressure Medical cuff (any Branch brand), take BP at home BID Miscellaneo 2020-0 Yes [id number] I10 - U [facility] 11-09 Dispense ity o f Supply Kit 00:00: blood [place] 00 pressure Medical cuff (any Branch brand), take BP at home BID Miscellaneo 202-0 Yes [id number] I10 - U [facility] 11-09 Dispense ity o f Supply Kit 00:00: blood [place] 00 pressure Medical cuff (any Branch brand), take BP at home BID Miscellaneo 202-0 Yes [id number] I10 - U [facility] 11-09 Dispense ity o f Supply Kit 00:00: blood pressure Medical cuff (any Branch brand), take BP at home BID Miscellaneo 2020-0 Yes [id number] I10 - U nivers [facility] 11-09 Dispense ity o f Supply Kit 00:00: blood pressure Medical cuff (any Branch brand), take BP at home BID Miscellaneo 2020-0 Yes [id number] I10 - U nivers [facility] 11-09 Dispense ity o f Supply Kit 00:00: blood [place] pressure Medical cuff (any Branch brand), take BP at home BID FLUoxetine 0 Yes 60mg Take 60 mg U nivers (PROZAC) 40 2-24 by mouth ity of mg capsule 21:55: daily. [address] prazosin 0 Yes 2mg Take 2 mg Univ ers HCl 2-24 by mouth 2 ity of (PRAZOSIN 21:55: (two) [place] ORAL) 51 times Medical daily as Branch needed for Insomnia. FLUoxetine 0 Yes 60mg Take 60 mg U nivers (PROZAC) 40 2-24 by mouth ity of mg capsule 21:55: daily. [address] prazosin 0 Yes 2mg Take 2 mg Univ ers HCl 2-24 by mouth 2 ity of (PRAZOSIN 21:55: (two) [place] ORAL) 51 times Medical daily as Branch needed for Insomnia. FLUoxetine 0 Yes 60mg Take 60 mg U nivers (PROZAC) 40 2-24 by mouth ity of mg capsule 21:55: daily. [address] prazosin 0 Yes 2mg Take 2 mg Univ ers HCl 2-24 by mouth 2 ity of (PRAZOSIN 21:55: (two) [place] ORAL) 51 times Medical daily as Branch needed for Insomnia. FLUoxetine 2020-0 Yes 60mg Take 60 mg U nivers (PROZAC) 40 2-24 by mouth ity of mg capsule 21:55: daily. [address] prazosin 2020-0 Yes 2mg Take 2 mg Univ ers HCl 2-24 by mouth 2 ity of (PRAZOSIN 21:55: (two) [place] ORAL) 51 times Medical daily as Branch needed for Insomnia. FLUoxetine 2020-0 Yes 60mg Take 60 mg U nivers (PROZAC) 40 2-24 by mouth ity of mg capsule 21:55: daily. [place] [address] Medical Branch prazosin 0 Yes 2mg Take 2 mg Univ ers HCl 2-24 by mouth 2 ity of (PRAZOSIN 21:55: (two) [place] ORAL) 51 times Medical daily as Branch needed for Insomnia. FLUoxetine 0 Yes 60mg Take 60 mg U nivers (PROZAC) 40 2-24 by mouth ity of mg capsule 21:55: daily. [place] [address] Medical Branch prazosin 0 Yes 2mg Take 2 mg Univ ers HCl 2-24 by mouth 2 ity of (PRAZOSIN 21:55: (two) [place] ORAL) 51 times Medical daily as Branch needed for Insomnia. LEVOTHYROXI 0 Yes [id number] TAKE ONE Univers NE 25 mcg 2-23 TABLET BY ity o f tablet 00:00: MOUTH [place] 00 EVERY Medical MORNING Branch LEVOTHYROXI 2020-0 Yes [id number] TAKE ONE Univers NE 25 mcg 2-23 TABLET BY ity o f tablet 00:00: MOUTH [place] 00 EVERY Medical MORNING Branch LEVOTHYROXI 2020-0 Yes [id number] TAKE ONE Univers NE 25 mcg 2-23 TABLET BY ity o f tablet 00:00: MOUTH [place] 00 EVERY Medical MORNING Branch LEVOTHYROXI 2020-0 Yes [id number] TAKE ONE Univers NE 25 mcg 2-23 TABLET BY ity o f tablet 00:00: MOUTH [place] 00 EVERY Medical MORNING Branch LEVOTHYROXI 2020-0 Yes [id number] TAKE ONE Univers NE 25 mcg 2-23 TABLET BY ity o f tablet 00:00: MOUTH [place] 00 EVERY Medical MORNING Branch LEVOTHYROXI 2020-0 Yes [id number] TAKE ONE Univers NE 25 mcg 2-23 TABLET BY ity o f tablet 00:00: MOUTH [place] 00 EVERY Medical MORNING Branch LEVOTHYROXI 2020-0 Yes [id number] TAKE ONE [facility] NE 25 mcg 2-23 TABLET BY ity o f tablet 00:00: MOUTH [place] 00 EVERY Medical MORNING Branch LEVOTHYROXI 2020-0 Yes [id number] TAKE ONE [facility] NE 25 mcg 2-23 TABLET BY ity o f tablet 00:00: MOUTH [place] 00 EVERY Medical MORNING Branch LEVOTHYROXI 2020-0 Yes [id number] TAKE ONE [facility] NE 25 mcg 2-23 TABLET BY ity o f tablet 00:00: MOUTH [place] 00 EVERY Medical MORNING Branch LEVOTHYROXI 1-0 Yes [id number] TAKE ONE [facility] NE 25 mcg 2-23 TABLET BY ity o f tablet 00:00: MOUTH [place] 00 EVERY Medical MORNING Branch LEVOTHYROXI 1-0 Yes [id number] TAKE ONE [facility] NE 25 mcg 2-23 TABLET BY ity o f tablet 00:00: MOUTH [place] 00 EVERY Medical MORNING Branch LEVOTHYROXI 1-0 Yes [id number] TAKE ONE [facility] NE 25 mcg 2-23 TABLET BY ity o f tablet 00:00: MOUTH [place] 00 EVERY Medical MORNING Branch LEVOTHYROXI 1-0 Yes [id number] TAKE ONE [facility] NE 25 mcg 2-23 TABLET BY ity o f tablet 00:00: MOUTH [place] 00 EVERY Medical MORNING Branch LEVOTHYROXI 2020-0 Yes [id number] TAKE ONE [facility] NE 25 mcg 2-23 TABLET BY ity o f tablet 00:00: MOUTH [place] 00 EVERY Medical MORNING Branch LEVOTHYROXI 1-0 Yes [id number] TAKE ONE [facility] NE 25 mcg 2-23 TABLET BY ity o f tablet 00:00: MOUTH [place] 00 EVERY Medical MORNING Branch LEVOTHYROXI 1-0 Yes [id number] TAKE ONE [facility] NE 25 mcg 2-23 TABLET BY ity o f tablet 00:00: MOUTH [place] 00 EVERY Medical MORNING Branch LEVOTHYROXI 1-0 Yes [id number] TAKE ONE [facility] NE 25 mcg 2-23 TABLET BY ity o f tablet 00:00: MOUTH [place] 00 EVERY Medical MORNING Branch LEVOTHYROXI 1-0 Yes [id number] TAKE ONE [facility] NE 25 mcg 2-23 TABLET BY ity o f tablet 00:00: MOUTH [place] 00 EVERY Medical MORNING Branch LEVOTHYROXI 1-0 Yes [id number] TAKE ONE [facility] NE 25 mcg 2-23 TABLET BY ity o f tablet 00:00: MOUTH [place] 00 EVERY Medical MORNING Branch LEVOTHYROXI 1-0 Yes [id number] TAKE ONE [facility] NE 25 mcg 2-23 TABLET BY ity o f tablet 00:00: MOUTH [place] 00 EVERY Medical MORNING Branch LEVOTHYROXI 1-0 1- No [id number] TAKE ONE [facility] NE 25 mcg 2-23 07-02 TABLET BY ity of tablet 00:00: 00:00 MOUTH [place] 00 :00 EVERY Medical MORNING Branch LEVOTHYROXI 1-0 2021- No [id number] TAKE ONE [facility] NE 25 mcg 11-01 TABLET BY ity of tablet 00:00: 00:00 MOUTH [place] 00 :00 EVERY Medical MORNING Branch FLUoxetine 0 Yes 60mg Take 60 mg U nivers (PROZAC) 40 1-27 by mouth ity of mg capsule 21:52: daily. [address] Iloperidone Yes 1{tbl} Take 1 Tab Univers [...] mouth ity of mg capsule 21:52: daily. [address] Iloperidone Yes 1{tbl} Take 1 Tab Univers [...] mouth ity of mg capsule 21:52: daily. [address] Iloperidone Yes 1{tbl} Take 1 Tab Univers [...] [place] 36 times Medical daily. Branch Iloperidone 2020-0 Yes 1{tbl} Take 1 Tab [...] times Medical daily. Branch prazosin Yes 2mg 2 mg, Univers (MINIPRES) 10-05 Oral, ity of capsule 2 02:00: Q12H, [place] mg 00 First dose Medical on [facility] 10/04/20 at 2000, Until Discontinu ed, Routine ziprasidone Yes 60mg 60 mg, Univ ers (GEODON) 10-04 Oral, BID ity of capsule 60 23:00: MEALS, [place] mg 00 First dose Medical on [facility] 10/04/20 at 1700, Until Discontinu ed, Routine FLUoxetine Yes 60mg 60 mg, Unive rs (PROZAC) 10-04 Oral, ity of capsule 60 21:15: DAILY, [place] mg 00 First dose Medical on [facility] 10/04/20 at 1515, Until Discontinu ed, Routine busPIRone Yes 15mg 15 mg, Univer s (BUSPAR) 10-04 Oral, ity of tablet 15 21:00: TIDPRN, [place] mg 46 Starting Medical [facility] 10/04/20 at 1500, Until Discontinu ed, Routine, anxiety Sliding Yes Subcutaneo Univ ers Scale 10-04 us, AC, ity of Insulin-Reg 13:30: First dose [place] ular + Fsbg 00 on Sat Medica l Testing 10/04/20 at Branch 0730, Until Discontinu ed, Routine heparin Yes 5000U 5,000 [facility] (porcine) 10-04 Units, ity of injection 12:00: Subcut[place]o [place] 5,000 Units 00 us, Q8H, Medi arnel First dose Branch on Sat10/04/20 at 0600, Until Discontinu ed, Routine NaCl 0.9% 2020- No 2000mL at 100 Uni vers (NS) IV 10-04 mL/hr, IV ity of infusion 11:45: 11:34 Infusion, [place] as 2,000 mL 00 :00 ONCE, 1 Medical dose, [facility] Branch 10/04/20 at 0545, Routine glucagon Yes 1mg 1 mg, Univers (GLUCAGEN 10-04 Intramuscu ity of DIAGNOSTIC 08:13: lar, PRN, [place] KIT) 15 Starting Medical injection Sat [place] mg 10/04/20 at 0213, Until Discontinu ed, SARIAH, Blood Glucose < or = 70 mg/dL and patient is unable to swallow or has mental changes. dextrose 50 Yes 25mL 25 mL, Univ ers % in water 10-04 Slow IV ity of (D50W) 08:13: Push, PRN, [place] injection 15 Starting Medica l 25 mL [facility] Branch 10/04/20 at 0213, Until Discontinu ed, SARIAH, Blood Glucose < or = 70 mg/dL and patient is unable to swallow or has mental status changes. ondansetron Yes 4mg 4 mg, Slow Univers (ZOFRAN 10-04 IV Push, ity of (PF)) 08:13: Q6HPRN, [place] injection 4 02 Starting Medi arnel mg Tue Branch 10/04/20 at 0213, Until Discontinu ed, Routine, Nausea and Vomiting (N/V) traMADoL No 50mg 50 mg, Univer s (ULTRAM) 10-04 Oral, ity of tablet 50 08:12: 08:11 Q8HPRN, [place] mg 57 :57 Starting Medical Tue Branch 10/04/20 at 0212, Until [place] 10/06/20 at 0211, Routine, Pain (scale 4-6) acetaminoph Yes 650mg 650 mg, [facility] en 10-04 Oral, ity of (TYLENOL) 08:12: Q6HPRN, [place] tablet 650 55 Starting Medic al mg Tue Branch 10/04/20 at 0212, Until Discontinu ed, Routine, Pain (scale 1-3) nicotine 2020-0 Yes 1{patch 1 Patch, [facility] (NICODERM) 10-04 } Topical, ity o f 21 mg/24 hr 05:26: Administer [place] patch 1 10 over 24 Medical Patch Hours, Branch Q24H, First dose on 10/03/20 at 2330, Until Discontinu ed, Routine NaCl 0.9% 2020- No 500mL at 999 Univ ers (NS) bolus 10-04-26 mL/hr, 500 it y of infusion 00:45: 00:43 mL, IV [place] 500 mL 00 :00 Infusion, Medical ONCE, 1 Branch dose, 10/03/20 at 1845, STAT FUROSEMIDE 2020-0 Yes [id number] TAKE ONE [facility] 20 mg 1-22 TABLET BY ity of tablet 00:00: [facility] DAILY Medical Branch FUROSEMIDE 2020-0 Yes [id number] TAKE ONE [facility] 20 mg 1-22 TABLET BY ity of tablet 00:00: [facility] DAILY Medical Branch FUROSEMIDE 2020-0 Yes [id number] TAKE ONE [facility] 20 mg 1-22 TABLET BY ity of tablet 00:00: [facility] DAILY Medical Branch FUROSEMIDE 2020-0 Yes [id number] TAKE ONE [facility] 20 mg 1-22 TABLET BY ity of tablet 00:00: MOUTH [place] 00 DAILY Medical Branch FUROSEMIDE 2020-0 Yes [id number] TAKE ONE [facility] 20 mg 1-22 TABLET BY ity of tablet 00:00: [facility] DAILY Medical Branch FUROSEMIDE 2020-0 202- No [id number] TAKE ONE [facility] 20 mg 1-22 03-03 TABLET BY ity of tablet 00:00: 00:00 [facility] 00 : DAILY Medical Branch FUROSEMIDE 2020-0 202- No [id number] TAKE ONE [facility] 20 mg 1-22 03-03 TABLET BY ity of tablet 00:00: 00:00 [facility] 00 :00 DAILY Medical Branch FUROSEMIDE 2020- No [id number] TAKE ONE [facility] 20 mg -28 11-03 TABLET BY ity of tablet 00:00: 00:00 MOUTH [place] 00 :00 DAILY Medical Branch FUROSEMIDE 2020- No [id number] TAKE ONE [facility] 20 mg -22 -03 TABLET BY ity of tablet 00:00: 00:00 MOUTH [place] 00 :00 DAILY Medical Branch hydrOXYzine 2019-09- No 25mg 25 mg, Uni vers (ATARAX) 2-12 12-12 Oral, ity of tablet 25 21:45: 20:45 ONCE, 1 [place] mg 00 :00 dose, Sat Medical 08/20/20 Branch at 1545, SARIAH hydrOXYzine 2019-09 Yes [id number] 25mg Take 1 [facility] 25 mg 2-12 tablet by ity of tablet 00:00: mouth [place] 00 every 8 Medical (eight) Branch hours as needed for Anxiety. hydrOXYzine 2019-09 Yes [id number] 25mg Take 1 [facility] 25 mg 2-12 tablet by ity of tablet 00:00: mouth [place] 00 every 8 Medical (eight) Branch hours as needed for Anxiety. hydrOXYzine 2019-09 Yes [id number] 25mg Take 1 [facility] 25 mg 2-12 tablet by ity of tablet 00:00: mouth [place] 00 every 8 Medical (eight) Branch hours as needed for Anxiety. hydrOXYzine 2019-09 Yes [id number] 25mg Take 1 [facility] 25 mg 2-12 tablet by ity of tablet 00:00: mouth [place] 00 every 8 Medical (eight) Branch hours as needed for Anxiety. hydrOXYzine 2019-09 Yes [id number] 25mg Take 1 [facility] 25 mg 2-12 tablet by ity of tablet 00:00: mouth [place] 00 every 8 Medical (eight) Branch hours as needed for Anxiety. hydrOXYzine 2019- Yes [id number] 25mg Take 1 [facility] 25 mg 2-12 tablet by ity of tablet 00:00: mouth [place] 00 every 8 Medical (eight) Branch hours as needed for Anxiety. hydrOXYzine 2019- Yes [id number] 25mg Take 1 [facility] 25 mg 2-12 tablet by ity of tablet 00:00: mouth [place] 00 every 8 Medical (eight) Branch hours as needed for Anxiety. hydrOXYzine 2019- Yes [id number] 25mg Take 1 [facility] 25 mg 2-12 tablet by ity of tablet 00:00: mouth [place] 00 every 8 Medical (eight) Branch hours as needed for Anxiety. hydrOXYzine 2019-09 Yes [id number] 25mg Take 1 [facility] 25 mg 2-12 tablet by ity of tablet 00:00: mouth [place] 00 every 8 Medical (eight) Branch hours as needed for Anxiety. hydrOXYzine 2019-09- No [id number] 25mg Take 1 [facility] 25 mg 2-12 03-03 tablet by ity of tablet 00:00: 00:00 mouth [place] 00 :00 every 8 Medical (eight) Branch hours as needed for Anxiety. hydrOXYzine 2019-09- No [id number] 25mg Take 1 [facility] 25 mg 2-12 03-03 tablet by ity of tablet 00:00: 00:00 mouth [place] 00 :00 every 8 Medical (eight) Branch hours as needed for Anxiety. hydrOXYzine 2019-09- No [id number] 25mg Take 1 [facility] 25 mg 2-12 03-03 tablet by ity of tablet 00:00: 00:00 mouth [place] 00 :00 every 8 Medical (eight) Branch hours as needed for Anxiety. hydrOXYzine 2019-09- No [id number] 25mg Take 1 [facility] 25 mg 2-12 03-03 tablet by ity of tablet 00:00: 00:00 mouth [place] 00 :00 every 8 Medical (eight) Branch hours as needed for Anxiety. lisinopriL 2019-09 Yes [facility] 10 mg 2-02 ity of tablet 00:00: [place] 00 Medical Branch lisinopriL 2020- Yes [facility] 10 mg 2-02 ity of tablet 00:00: [place] 00 Medical Branch lisinopriL 2020- Yes [facility] 10 mg 2-02 ity of tablet 00:00: [place] 00 Medical Branch lisinopriL 2020- Yes [facility] 10 mg 2-02 ity of tablet 00:00: [place] 00 Medical Branch lisinopriL 2020- Yes [facility] 10 mg 2-02 ity of tablet 00:00: [place] 00 Medical Branch lisinopriL 2020- Yes [facility] 10 mg 2-02 ity of tablet 00:00: [place] 00 Medical Branch lisinopriL 2020-2020- No Univer s 10 mg 2-02 03-16 ity of tablet 00:00: 00:00 [place] 00 :00 Medical Branch furosemide 2019-2019- No Take by [facility] (LASIX 2-08-09 mouth. ity of ORAL) 17:28: 00:00 14 :00 Medical Branch furosemide 2019-09 2020- No Take by [facility] (LASIX 2-08-09 mouth. ity of ORAL) 17:28: 00:00 14 :00 Medical Branch prazosin 2019-09 Yes Take by Unive rs HCl 2- mouth. ity of (PRAZOSIN 16:46: [place] ORAL) [...] (two) [place] 01 times Medical daily. Branch lisinopriL 2019-09 Yes [id number] 10mg Take 1 U nivers 10 mg 2-01 tablet by ity of tablet 00:00: mouth [place] 00 daily. Medical Branch metformin 2019-09 Yes [id number] 500mg Take 1 Univers ER 500 mg 2-01 tablet by ity o f 24 hr 00:00: mouth [place] tablet 00 daily with Medical breakfast. Branch nicotine 7 2019-09 Yes [id number] 1{patch Apply 1 [facility] mg/24 hr 2-01 } Patch to ity of patch 00:00: area(s) [place] 00 every 24 Medical (twenty-fo Branch ur) hours. Apply 21mg patch daily x 6 weeks; then apply 14mg patch daily x 2 weeks; then apply 7mg patch daily x 2 weeks. Stop smoking on treatment onset nicotine 2019-09 Yes [id number] 1{patch Apply 1 [facility] mg/24 hr 2-01 } Patch to ity of patch 00:00: area(s) [place] 00 every 24 Medical (twenty-fo Branch ur) hours. Apply 21mg patch daily x 6 weeks; then apply 14mg patch daily x 2 weeks; then apply 7mg patch daily x 2 weeks. Stop smoking on treatment onset nicotine 14 2019-09 Yes [id number] 1{patch Apply 1 [facility] mg/24 hr 2-01 } Patch to ity of patch 00:00: area(s) [place] 00 every 24 Medical (twenty-fo Branch ur) hours. metformin 2019-09 Yes [id number] 500mg Take 1 Univers ER 500 mg 2-01 tablet by ity o f 24 hr 00:00: mouth [place] tablet 00 daily with Medical breakfast. Branch nicotine 7 2019-09 Yes [id number] 1{patch Apply 1 [facility] mg/24 hr 2-01 } Patch to ity of patch 00:00: area(s) [place] 00 every 24 Medical (twenty-fo Branch ur) hours. Apply 21mg patch daily x 6 weeks; then apply 14mg patch daily x 2 weeks; then apply 7mg patch daily x 2 weeks. Stop smoking on treatment onset nicotine 21 2019-09 Yes [id number] 1{patch Apply 1 [facility] mg/24 hr 2-01 } Patch to ity of patch 00:00: area(s) [place] 00 every 24 Medical (twenty-fo Branch ur) hours. Apply 21mg patch daily x 6 weeks; then apply 14mg patch daily x 2 weeks; then apply 7mg patch daily x 2 weeks. Stop smoking on treatment onset nicotine 14 2019-09 Yes [id number] 1{patch Apply 1 [facility] mg/24 hr 2-01 } Patch to ity of patch 00:00: area(s) [place] 00 every 24 Medical ([facility] ur) hours. metformin 2019-09 Yes [id number] 500mg Take 1 Univers ER 500 mg 2-01 tablet by ity o f 24 hr 00:00: mouth [place] tablet 00 daily with Medical breakfast. Branch nicotine 7 2019-09 Yes [id number] 1{patch Apply 1 [facility] mg/24 hr 2-01 } Patch to ity of patch 00:00: area(s) [place] 00 every 24 Medical ([facility] ur) hours. Apply 21mg patch daily x 6 weeks; then apply 14mg patch daily x 2 weeks; then apply 7mg patch daily x 2 weeks. Stop smoking on treatment onset nicotine 2019-09 Yes [id number] 1{patch Apply 1 Univers mg/24 hr 2-01 } Patch to ity of patch 00:00: area(s) [place] 00 every 24 Medical ([facility] ur) hours. Apply 21mg patch daily x 6 weeks; then apply 14mg patch daily x 2 weeks; then apply 7mg patch daily x 2 weeks. Stop smoking on treatment onset nicotine 14 2019-09 Yes [id number] 1{patch Apply 1 Univers mg/24 hr 2-01 } Patch to ity of patch 00:00: area(s) [place] 00 every 24 Medical ([facility] ur) hours. metformin 2019-09 Yes [id number] 500mg Take 1 Univers ER 500 mg 2-01 tablet by ity o f 24 hr 00:00: mouth [place] tablet 00 daily with Medical breakfast. Branch nicotine 7 2019-09 Yes [id number] 1{patch Apply 1 [facility] mg/24 hr 2-01 } Patch to ity of patch 00:00: area(s) [place] 00 every 24 Medical ([facility] ur) hours. Apply 21mg patch daily x 6 weeks; then apply 14mg patch daily x 2 weeks; then apply 7mg patch daily x 2 weeks. Stop smoking on treatment onset nicotine 21 2019-09 Yes [id number] 1{patch Apply 1 [facility] mg/24 hr 2-01 } Patch to ity of patch 00:00: area(s) [place] 00 every 24 Medical (twenty- Branch ur) hours. Apply 21mg patch daily x 6 weeks; then apply 14mg patch daily x 2 weeks; then apply 7mg patch daily x 2 weeks. Stop smoking on treatment onset nicotine 14 2019-09 Yes [id number] 1{patch Apply 1 Univers mg/24 hr 2-01 } Patch to ity of patch 00:00: area(s) [place] 00 every 24 Medical (twenty- Branch ur) hours. metformin 2019-09 Yes [id number] 500mg Take 1 Univers ER 500 mg 2-01 tablet by ity o f 24 hr 00:00: mouth [place] tablet 00 daily with Medical breakfast. Branch nicotine 7 2019-09 Yes [id number] 1{patch Apply 1 [facility] mg/24 hr 2-01 } Patch to ity of patch 00:00: area(s) [place] 00 every 24 Medical ([facility] Branch ur) hours. Apply 21mg patch daily x 6 weeks; then apply 14mg patch daily x 2 weeks; then apply 7mg patch daily x 2 weeks. Stop smoking on treatment onset nicotine 21 2019-09 Yes [id number] 1{patch Apply 1 Univers mg/24 hr 2-01 } Patch to ity of patch 00:00: area(s) [place] 00 every 24 Medical ([facility] Branch ur) hours. Apply 21mg patch daily x 6 weeks; then apply 14mg patch daily x 2 weeks; then apply 7mg patch daily x 2 weeks. Stop smoking on treatment onset nicotine 14 2019-09 Yes [id number] 1{patch Apply 1 Univers mg/24 hr 2-01 } Patch to ity of patch 00:00: area(s) [place] 00 every 24 Medical ([facility] Branch ur) hours. metformin 2019-09 Yes [id number] 500mg Take 1 Univers ER 500 mg 2-01 tablet by ity o f 24 hr 00:00: mouth [place] tablet 00 daily with Medical breakfast. Branch nicotine 7 2019-09 Yes [id number] 1{patch Apply 1 [facility] mg/24 hr 2-01 } Patch to ity of patch 00:00: area(s) [place] 00 every 24 Medical (twenty- Branch ur) hours. Apply 21mg patch daily x 6 weeks; then apply 14mg patch daily x 2 weeks; then apply 7mg patch daily x 2 weeks. Stop smoking on treatment onset nicotine 21 2019-09 Yes [id number] 1{patch Apply 1 Univers mg/24 hr 2-01 } Patch to ity of patch 00:00: area(s) [place] 00 every 24 Medical ([facility] Branch ur) hours. Apply 21mg patch daily x 6 weeks; then apply 14mg patch daily x 2 weeks; then apply 7mg patch daily x 2 weeks. Stop smoking on treatment onset nicotine 14 2019-09 Yes [id number] 1{patch Apply 1 [facility] mg/24 hr 2-01 } Patch to ity of patch 00:00: area(s) [place] 00 every 24 Medical (twenty- Branch ur) hours. metformin 2019-09 Yes [id number] 500mg Take 1 [facility] ER 500 mg 2-01 tablet by ity o f 24 hr 00:00: mouth [place] tablet 00 daily with Medical breakfast. Branch nicotine 7 2019-09 Yes [id number] 1{patch Apply 1 [facility] mg/24 hr 2-01 } Patch to ity of patch 00:00: area(s) [place] 00 every 24 Medical (twenty- Branch ur) hours. Apply 21mg patch daily x 6 weeks; then apply 14mg patch daily x 2 weeks; then apply 7mg patch daily x 2 weeks. Stop smoking on treatment onset nicotine 21 2019-09 Yes [id number] 1{patch Apply 1 Univers mg/24 hr 2-01 } Patch to ity of patch 00:00: area(s) [place] 00 every 24 Medical ([facility] Branch ur) hours. Apply 21mg patch daily x 6 weeks; then apply 14mg patch daily x 2 weeks; then apply 7mg patch daily x 2 weeks. Stop smoking on treatment onset nicotine 14 2019-09 Yes [id number] 1{patch Apply 1 [facility] mg/24 hr 2-01 } Patch to ity of patch 00:00: area(s) [place] 00 every 24 [facility]. metformin 2019-09 Yes [id number] 500mg Take 1 [facility] ER 500 mg 2-01 tablet by ity o f 24 hr 00:00: mouth [place] tablet 00 daily with Medical breakfast. Branch nicotine 7 2019-09 Yes [id number] 1{patch Apply 1 [facility] mg/24 hr 2-01 } Patch to ity of patch 00:00: area(s) [place] 00 every 24 Medical ([facility] Branch ur) hours. Apply 21mg patch daily x 6 weeks; then apply 14mg patch daily x 2 weeks; then apply 7mg patch daily x 2 weeks. Stop smoking on treatment onset nicotine 21 2019-09 Yes [id number] 1{patch Apply 1 Univers mg/24 hr 2-01 } Patch to ity of patch 00:00: area() [place] 00 every 24 Medical ([facility] Branch ur) hours. Apply 21mg patch daily x 6 weeks; then apply 14mg patch daily x 2 weeks; then apply 7mg patch daily x 2 weeks. Stop smoking on treatment onset nicotine 14 2019-09 Yes [id number] 1{patch Apply 1 Univers mg/24 hr 2-01 } Patch to ity of patch 00:00: [facility]() [place] 00 every 24 Medical ([facility] Branch ur) hours. metformin 2019-09 Yes [id number] 500mg Take 1 Univers ER 500 mg 2-01 tablet by ity o f 24 hr 00:00: mouth [place] tablet 00 daily with Medical breakfast. Branch nicotine 7 2019-09 Yes [id number] 1{patch Apply 1 [facility] mg/24 hr 2-01 } Patch to ity of patch 00:00: area() [place] 00 every 24 Medical ([facility] Branch ur) hours. Apply 21mg patch daily x 6 weeks; then apply 14mg patch daily x 2 weeks; then apply 7mg patch daily x 2 weeks. Stop smoking on treatment onset nicotine 21 2019-09 Yes [id number] 1{patch Apply 1 Univers mg/24 hr 2-01 } Patch to ity of patch 00:00: area() [place] 00 every 24 Medical ([facility] Branch ur) hours. Apply 21mg patch daily x 6 weeks; then apply 14mg patch daily x 2 weeks; then apply 7mg patch daily x 2 weeks. Stop smoking on treatment onset nicotine 14 2019-09 Yes [id number] 1{patch Apply 1 Univers mg/24 hr 2-01 } Patch to ity of patch 00:00: area() [place] 00 every 24 Medical ([facility] Branch ur) hours. metformin 2019-09 Yes [id number] 500mg Take 1 Univers ER 500 mg 2-01 tablet by ity o f 24 hr 00:00: mouth [place] tablet 00 daily with Medical breakfast. Branch nicotine 7 2019-09 Yes [id number] 1{patch Apply 1 [facility] mg/24 hr 2-01 } Patch to ity of patch 00:00: area(s) [place] 00 every 24 Medical (twenty- Branch ur) hours. Apply 21mg patch daily x 6 weeks; then apply 14mg patch daily x 2 weeks; then apply 7mg patch daily x 2 weeks. Stop smoking on treatment onset nicotine 21 2019-09 Yes [id number] 1{patch Apply 1 [facility] mg/24 hr 2-01 } Patch to ity of patch 00:00: area(s) [place] 00 every 24 Medical (twenty- Branch ur) hours. Apply 21mg patch daily x 6 weeks; then apply 14mg patch daily x 2 weeks; then apply 7mg patch daily x 2 weeks. Stop smoking on treatment onset nicotine 14 2019-09 Yes [id number] 1{patch Apply 1 Univers mg/24 hr 2-01 } Patch to ity of patch 00:00: area(s) [place] 00 every 24 Medical ([facility] Branch ur) hours. lisinopriL 2019-09 Yes [id number] 10mg Take 1 U nivers 10 mg 2-01 tablet by ity of tablet 00:00: mouth [place] 00 daily. Medical Branch metformin 2019-09 Yes [id number] 500mg Take 1 [facility] ER 500 mg 2-01 tablet by ity o f 24 hr 00:00: mouth [place] tablet 00 daily with Medical breakfast. Branch nicotine 7 2019-09 Yes [id number] 1{patch Apply 1 [facility] mg/24 hr 2-01 } Patch to ity of patch 00:00: area(s) [place] 00 every 24 Medical ([facility] Branch ur) hours. Apply 21mg patch daily x 6 weeks; then apply 14mg patch daily x 2 weeks; then apply 7mg patch daily x 2 weeks. Stop smoking on treatment onset nicotine 21 2019-09 Yes [id number] 1{patch Apply 1 [facility] mg/24 hr 2-01 } Patch to ity of patch 00:00: area(s) [place] 00 every 24 Medical (twenty- Branch ur) hours. Apply 21mg patch daily x 6 weeks; then apply 14mg patch daily x 2 weeks; then apply 7mg patch daily x 2 weeks. Stop smoking on treatment onset nicotine 14 2019-09 Yes [id number] 1{patch Apply 1 [facility] mg/24 hr 2-01 } Patch to ity of patch 00:00: area(s) [place] 00 every 24 Medical (twenty-fo Branch ur) hours. lisinopriL 2019-09 Yes [id number] 10mg Take 1 U nivers 10 mg 2-01 tablet by ity of tablet 00:00: mouth [place] 00 daily. Medical Branch metformin 2019-09 Yes [id number] 500mg Take 1 Univers ER 500 mg 2-01 tablet by ity o f 24 hr 00:00: mouth [place] tablet 00 daily with Medical breakfast. Branch nicotine 7 2019-09 Yes [id number] 1{patch Apply 1 [facility] mg/24 hr 2-01 } Patch to ity of patch 00:00: area(s) [place] 00 every 24 Medical (twenty-fo Branch ur) hours. Apply 21mg patch daily x 6 weeks; then apply 14mg patch daily x 2 weeks; then apply 7mg patch daily x 2 weeks. Stop smoking on treatment onset nicotine 21 2019-09 Yes [id number] 1{patch Apply 1 [facility] mg/24 hr 2-01 } Patch to ity of patch 00:00: area(s) [place] 00 every 24 Medical (twenty-fo Branch ur) hours. Apply 21mg patch daily x 6 weeks; then apply 14mg patch daily x 2 weeks; then apply 7mg patch daily x 2 weeks. Stop smoking on treatment onset nicotine 14 2019-09 Yes [id number] 1{patch Apply 1 [facility] mg/24 hr 2-01 } Patch to ity of patch 00:00: area(s) [place] 00 every 24 Medical (twenty-fo Branch ur) hours. lisinopriL 2019-09 Yes [id number] 10mg Take 1 U nivers 10 mg 2-01 tablet by ity of tablet 00:00: mouth [place] 00 daily. Medical Branch metformin 2019-09 Yes [id number] 500mg Take 1 Univers ER 500 mg 2-01 tablet by ity o f 24 hr 00:00: mouth [place] tablet 00 daily with Medical breakfast. Branch nicotine 7 2019-09 Yes [id number] 1{patch Apply 1 [facility] mg/24 hr 2-01 } Patch to ity of patch 00:00: area(s) [place] 00 every 24 Medical (twenty-fo Branch ur) hours. Apply 21mg patch daily x 6 weeks; then apply 14mg patch daily x 2 weeks; then apply 7mg patch daily x 2 weeks. Stop smoking on treatment onset nicotine 21 2019-09 Yes [id number] 1{patch Apply 1 [facility] mg/24 hr 2-01 } Patch to ity of patch 00:00: area(s) [place] 00 every 24 Medical ([facility] Branch ur) hours. Apply 21mg patch daily x 6 weeks; then apply 14mg patch daily x 2 weeks; then apply 7mg patch daily x 2 weeks. Stop smoking on treatment onset nicotine 14 2019-09 Yes [id number] 1{patch Apply 1 [facility] mg/24 hr 2-01 } Patch to ity of patch 00:00: area(s) [place] 00 every 24 Medical (twenty- Branch ur) hours. lisinopriL 2019-09 Yes [id number] 10mg Take 1 U nivers 10 mg 2-01 tablet by ity of tablet 00:00: mouth [place] 00 daily. Medical Branch metformin 2019-09 Yes [id number] 500mg Take 1 Univers ER 500 mg 2-01 tablet by ity o f 24 hr 00:00: mouth [place] tablet 00 daily with Medical breakfast. Branch nicotine 7 2019-09 Yes [id number] 1{patch Apply 1 [facility] mg/24 hr 2-01 } Patch to ity of patch 00:00: area(s) [place] 00 every 24 Medical ([facility] Branch ur) hours. Apply 21mg patch daily x 6 weeks; then apply 14mg patch daily x 2 weeks; then apply 7mg patch daily x 2 weeks. Stop smoking on treatment onset nicotine 21 2019-09 Yes [id number] 1{patch Apply 1 [facility] mg/24 hr 2-01 } Patch to ity of patch 00:00: area(s) [place] 00 every 24 Medical ([facility] ur) hours. Apply 21mg patch daily x 6 weeks; then apply 14mg patch daily x 2 weeks; then apply 7mg patch daily x 2 weeks. Stop smoking on treatment onset nicotine 14 2019-09 Yes [id number] 1{patch Apply 1 [facility] mg/24 hr 2-01 } Patch to ity of patch 00:00: area(s) [place] 00 every 24 Medical ([facility] ur) hours. lisinopriL 2019-09 Yes [id number] 10mg Take 1 [facility] nivers 10 mg 2-01 tablet by ity of tablet 00:00: mouth [place] 00 daily. Medical Branch metformin 2019-09 Yes [id number] 500mg Take 1 [facility] ER 500 mg 2-01 tablet by ity o f 24 hr 00:00: mouth [place] tablet 00 daily with Medical breakfast. Branch nicotine 7 2019-09 Yes [id number] 1{patch Apply 1 [facility] mg/24 hr 2-01 } Patch to ity of patch 00:00: area(s) [place] 00 every 24 Medical ([facility] Branch ur) hours. Apply 21mg patch daily x 6 weeks; then apply 14mg patch daily x 2 weeks; then apply 7mg patch daily x 2 weeks. Stop smoking on treatment onset nicotine 21 2019-09 Yes [id number] 1{patch Apply 1 [facility] mg/24 hr 2-01 } Patch to ity of patch 00:00: area(s) [place] 00 every 24 Medical ([facility] Branch ur) hours. Apply 21mg patch daily x 6 weeks; then apply 14mg patch daily x 2 weeks; then apply 7mg patch daily x 2 weeks. Stop smoking on treatment onset nicotine 14 2019-09 Yes [id number] 1{patch Apply 1 [facility] mg/24 hr 2-01 } Patch to ity of patch 00:00: area(s) [place] 00 every 24 Medical ([facility] Branch ur) hours. lisinopriL 2019-09 Yes [id number] 10mg Take 1 [facility] nivers 10 mg 2-01 tablet by ity of tablet 00:00: mouth [place] 00 daily. Medical Branch metformin 2019-09 Yes [id number] 500mg Take 1 [facility] ER 500 mg 2-01 tablet by ity o f 24 hr 00:00: mouth [place] tablet 00 daily with Medical breakfast. Branch nicotine 7 2019-09 Yes [id number] 1{patch Apply 1 [facility] mg/24 hr 2-01 } Patch to ity of patch 00:00: area(s) [place] 00 every 24 Medical ([facility] Branch ur) hours. Apply 21mg patch daily x 6 weeks; then apply 14mg patch daily x 2 weeks; then apply 7mg patch daily x 2 weeks. Stop smoking on treatment onset nicotine 21 2019-09 Yes [id number] 1{patch Apply 1 [facility] mg/24 hr 2-01 } Patch to ity of patch 00:00: area(s) [place] 00 every 24 Medical ([facility] Branch ur) hours. Apply 21mg patch daily x 6 weeks; then apply 14mg patch daily x 2 weeks; then apply 7mg patch daily x 2 weeks. Stop smoking on treatment onset nicotine 14 2019-09 Yes [id number] 1{patch Apply 1 [facility] mg/24 hr 2-01 } Patch to ity of patch 00:00: area(s) [place] 00 every 24 Medical ([facility] Branch ur) hours. lisinopriL 2019-09 Yes [id number] 10mg Take 1 [facility] nivers 10 mg 2-01 tablet by ity of tablet 00:00: mouth [place] 00 daily. Medical Branch metformin 2019-09 Yes [id number] 500mg Take 1 [facility] ER 500 mg 2-01 tablet by ity o f 24 hr 00:00: mouth [place] tablet 00 daily with Medical breakfast. Branch nicotine 7 2019-09 Yes [id number] 1{patch Apply 1 [facility] mg/24 hr 2-01 } Patch to ity of patch 00:00: area(s) [place] 00 every 24 Medical ([facility] Branch ur) hours. Apply 21mg patch daily x 6 weeks; then apply 14mg patch daily x 2 weeks; then apply 7mg patch daily x 2 weeks. Stop smoking on treatment onset nicotine 21 2019-09 Yes [id number] 1{patch Apply 1 [facility] mg/24 hr 2-01 } Patch to ity of patch 00:00: area(s) [place] 00 every 24 Medical ([facility] Branch ur) hours. Apply 21mg patch daily x 6 weeks; then apply 14mg patch daily x 2 weeks; then apply 7mg patch daily x 2 weeks. Stop smoking on treatment onset nicotine 14 2019-09 Yes [id number] 1{patch Apply 1 [facility] mg/24 hr 2-01 } Patch to ity of patch 00:00: area(s) [place] 00 every 24 Medical ([facility] Branch ur) hours. metformin 2019-09- No [id number] 500mg Take 1 [facility] ER 500 mg 2-09 11-16 tablet by ity of 24 hr 00:00: 00:00 mouth [place] tablet 00 :00 daily with Medical breakfast. Branch nicotine 7 2019-09- No [id number] 1{patch Apply 1 [facility] mg/24 hr 2-01 03-16 } Patch to ity of patch 00:00: 00:00 area(s) [place] 00 :00 every 24 Medical ([facility] Branch ur) hours. Apply 21mg patch daily x 6 weeks; then apply 14mg patch daily x 2 weeks; then apply 7mg patch daily x 2 weeks. Stop smoking on treatment onset nicotine 21 2019-09- No [id number] 1{patch Apply 1 [facility] mg/24 hr 10-10 } Patch to ity of patch 00:00: 00:00 area(s) [place] 00 :00 every 24 Medical ([facility] Branch ur) hours. Apply 21mg patch daily x 6 weeks; then apply 14mg patch daily x 2 weeks; then apply 7mg patch daily x 2 weeks. Stop smoking on treatment onset nicotine 14 2019-09- No [id number] 1{patch Apply 1 [facility] mg/24 hr 10-10 } Patch to ity of patch 00:00: 00:00 area(s) [place] 00 :00 every 24 Medical ([facility] ur) hours. lisinopriL 2019-09- No [id number] 10mg Take 1 [facility] 10 mg 10-10 [...] HCl 9-07 mouth. ity of (PRAZOSIN 01:57: [place] ORAL) Medical Branch furosemide Yes Take by Uni vers (LASIX 9-07 mouth. ity of ORAL) 01:57: [address] Branch prazosin 0 Yes Take by Unive rs HCl 9-07 mouth. ity of (PRAZOSIN 01:57: [place] ORAL) Medical Branch furosemide Yes Take by [facility] vers (LASIX 9-07 mouth. ity of ORAL) 01:57: [place] [address] Medical Branch prazosin 0 Yes Take by Unive rs HCl 9-07 mouth. ity of (PRAZOSIN 01:57: [place] ORAL) Medical Branch furosemide Yes Take by [facility] vers (LASIX 9-07 mouth. ity of ORAL) 01:57: [place] [address] Medical Branch NaCl 0.9% 2019- No 1000mL at 999 [facility] vers (NS) bolus 05-16 09-07 mL/hr, ity of infusion 00:45: 01:28 1,000 mL, [place] as 1,000 mL 00 :00 IV Medical Piggyback, Branch ONCE, 1 dose, 05/15/20 at 1945, STAT NaCl 0.9% 2019-0 2020- No 1000mL at 999 Uni vers (NS) bolus 05-15 09-07 mL/hr, ity of infusion 23:00: 01:27 1,000 mL, [place] as 1,000 mL 00 :00 IV Medical Infusion, Branch ONCE, 1 dose, 05/15/20 at 1800, SARIAH hydrOXYzine 2020-0 2020- No 25mg 25 mg, [facility] vers (ATARAX) 03-22 07-14 Oral, ity of tablet 25 02:15: 01:06 ONCE, 1 [place] mg 00 :[place] dose, [facility] Medical 03/21/20 at Branch 2115, SARIAH hydrOXYzine 2020-0 2020- No 25mg Take 25 mg [facility] (ATARAX) 25 03-22- by mouth 2 i ty of mg tablet 01:06: 00:00 (two) [place] 21 :00 times Medical daily. Branch hydrOXYzine 2020-0 Yes [id number] 25mg Take 1 [facility] 25 mg 7-13 tablet by ity of tablet 00:00: mouth [address] [place] [address] ([facility]) Medical times [place] daily as needed for Itching. hydrOXYzine 2020-0 Yes [id number] 25mg Take 1 [facility] 25 mg 7-13 tablet by ity of tablet 00:00: mouth 2 [place] (two) Medical times [place] daily as needed for Itching. hydrOXYzine 2020-0 Yes [id number] 25mg Take 1 [facility] 25 mg 7-13 tablet by ity of tablet 00:00: mouth 2 [place] (two) Medical times Branch daily as needed for Itching. hydrOXYzine 2020-0 Yes [id number] 25mg Take 1 [facility] 25 mg 7-13 tablet by ity of tablet 00:00: mouth 2 [place] (two) Medical times [place] daily as needed for Itching. hydrOXYzine 2020-0 Yes [id number] 25mg Take 1 [facility] 25 mg 7-13 tablet by ity of tablet 00:00: mouth 2 [place] [address] (two) Medical times [place] daily as needed for Itching. hydrOXYzine 2020-0 Yes [id number] 25mg Take 1 [facility] 25 mg 7-13 tablet by ity of tablet 00:00: mouth 2 00 (two) Medical times Branch daily as needed for Itching. hydrOXYzine 2020-0 Yes [id number] 25mg Take 1 [facility] 25 mg 7-13 tablet by ity of tablet 00:00: mouth 2 00 (two) Medical times Branch daily as needed for Itching. hydrOXYzine 2020-0 Yes [id number] 25mg Take 1 [facility] 25 mg 7-13 tablet by ity of tablet 00:00: mouth 2 00 (two) Medical times Branch daily as needed for Itching. hydrOXYzine 2020-0 Yes [id number] 25mg Take 1 [facility] 25 mg 7-13 tablet by ity of tablet 00:00: mouth 2 [place] (two) Medical times Branch daily as needed for Itching. hydrOXYzine 2020-0 2020- No [id number] 25mg Take 1 [facility] 25 mg 7-13 12-12 tablet by ity of tablet 00:00: 00:00 mouth 2 [place] 00 :00 (two) Medical times Branch daily as needed for Itching. levothyroxi 2020-0 Yes [id number] 25ug Take 1 [facility] ne 25 mcg 5-05 tablet by ity o f tablet 00:00: mouth [place] 00 every Medical morning. Branch atorvastati 2020-0 Yes [id number] 40mg Take 1 [facility] n 40 mg 5-05 tablet by ity of tablet 00:00: mouth at [place] 00 bedtime. Medical Branch levothyroxi 2020-0 Yes [id number] 25ug Take 1 [facility] ne 25 mcg 5-05 tablet by ity o f tablet 00:00: mouth [place] 00 every Medical morning. Branch atorvastati 2020-0 Yes [id number] 40mg Take 1 [facility] n 40 mg 5-05 tablet by ity of tablet 00:00: mouth at [place] 00 bedtime. Medical Branch levothyroxi 2020-0 Yes [id number] 25ug Take 1 [facility] ne 25 mcg 5-05 tablet by ity o f tablet 00:00: mouth [place] 00 every Medical morning. Branch atorvastati 2020-0 Yes [id number] 40mg Take 1 [facility] n 40 mg 5-05 tablet by ity of tablet 00:00: mouth at [place] 00 bedtime. Medical Branch atorvastati 2020-0 Yes [id number] 40mg Take 1 [facility] n 40 mg 5-05 tablet by ity of tablet 00:00: mouth at [place] [address] bedtime. Medical Branch atorvastati 2020-0 Yes [id number] 40mg Take 1 [facility] n 40 mg 5-05 tablet by ity of tablet 00:00: mouth at [place] [address] bedtime. Medical Branch atorvastati 2020-0 Yes [id number] 40mg Take 1 [facility] n 40 mg 5-05 tablet by ity of tablet 00:00: mouth at [place] [address] bedtime. Medical Branch atorvastati 2020-0 Yes [id number] 40mg Take 1 [facility] n 40 mg 5-05 tablet by ity of tablet 00:00: mouth at [place] bedtime. Medical Branch atorvastati 2020-0 Yes [id number] 40mg Take 1 [facility] n 40 mg 5-05 tablet by ity of tablet 00:00: mouth at [place] [address] bedtime. Medical Branch atorvastati 2019-0 Yes [id number] 40mg Take 1 [facility] n 40 mg 5-05 tablet by ity of tablet 00:00: mouth at [place] [address] bedtime. Medical Branch atorvastati 2019-0 Yes [id number] 40mg Take 1 [facility] n 40 mg 5-05 tablet by ity of tablet 00:00: mouth at [place] [address] bedtime. Medical Branch atorvastati 2019-0 Yes [id number] 40mg Take 1 [facility] n 40 mg 5-05 tablet by ity of tablet 00:00: mouth at [place] [address] bedtime. Medical Branch atorvastati 2019-0 Yes [id number] 40mg Take 1 [facility] n 40 mg 5-05 tablet by ity of tablet 00:00: mouth at [place] [address] bedtime. Medical Branch atorvastati 2020-0 Yes [id number] 40mg Take 1 [facility] n 40 mg 5-05 tablet by ity of tablet 00:00: mouth at [place] [address] bedtime. Medical Branch atorvastati 2020-0 Yes [id number] 40mg Take 1 [facility] n 40 mg 5-05 tablet by ity of tablet 00:00: mouth at [place] [address] bedtime. Medical Branch atorvastati 2020-0 Yes [id number] 40mg Take 1 [facility] n 40 mg 5-05 tablet by ity of tablet 00:00: mouth at [place] [address] bedtime. Medical Branch atorvastati 2020-0 Yes [id number] 40mg Take 1 [facility] n 40 mg 5-05 tablet by ity of tablet 00:00: mouth at [place] 00 bedtime. Medical Branch atorvastati 2020-0 Yes [id number] 40mg Take 1 [facility] n 40 mg 5-05 tablet by ity of tablet 00:00: mouth at [place] 00 bedtime. Medical Branch levothyroxi 2020-0 Yes [id number] 25ug Take 1 [facility] ne 25 mcg 5-05 tablet by ity o f tablet 00:00: mouth [place] 00 every Medical morning. Branch atorvastati 2019-0 Yes [id number] 40mg Take 1 [facility] n 40 mg 5-05 tablet by ity of tablet 00:00: mouth at [place] 00 bedtime. Medical Branch nicotine 7 2019- Yes [id number] 1{patch Apply 1 [facility] mg/24 hr 5-05 } Patch to ity of patch 00:00: area(s) [place] 00 every 24 Medical (twenty- Branch ur) hours. Apply 21mg patch daily x 6 weeks; then apply 14mg patch daily x 2 weeks; then apply 7mg patch daily x 2 weeks. Stop smoking on treatment onset nicotine 14 2019-0 Yes [id number] 1{patch Apply 1 [facility] mg/24 hr 5-05 } Patch to ity of patch 00:00: area(s) [place] 00 every 24 Medical ([facility] ur) hours. nicotine 21 2019-0 Yes [id number] 1{patch Apply 1 [facility] mg/24 hr 5-05 } Patch to ity of patch 00:00: area(s) [place] 00 every 24 Medical (twenty- Branch ur) hours. Apply 21mg patch daily x 6 weeks; then apply 14mg patch daily x 2 weeks; then apply 7mg patch daily x 2 weeks. Stop smoking on treatment onset levothyroxi 2020-0 Yes [id number] 25ug Take 1 [facility] ne 25 mcg 5-05 tablet by ity o f tablet 00:00: mouth [place] 00 every Medical morning. Branch atorvastati 2019-0 Yes [id number] 40mg Take 1 [facility] n 40 mg 5-05 tablet by ity of tablet 00:00: mouth at [place] 00 bedtime. Medical Branch nicotine 7 2019-0 Yes [id number] 1{patch Apply 1 [facility] mg/24 hr 5-05 } Patch to ity of patch 00:00: area(s) [place] 00 every 24 Medical (twenty- Branch ur) hours. Apply 21mg patch daily x 6 weeks; then apply 14mg patch daily x 2 weeks; then apply 7mg patch daily x 2 weeks. Stop smoking on treatment onset nicotine 14 2020-0 Yes [id number] 1{patch Apply 1 [facility] mg/24 hr 5-05 } Patch to ity of patch 00:00: area(s) [place] 00 every 24 Medical ([facility] ur) hours. nicotine 21 2020-0 Yes [id number] 1{patch Apply 1 [facility] mg/24 hr 5-05 } Patch to ity of patch 00:00: area(s) [place] 00 every 24 Medical ([facility] ur) hours. Apply 21mg patch daily x 6 weeks; then apply 14mg patch daily x 2 weeks; then apply 7mg patch daily x 2 weeks. Stop smoking on treatment onset levothyroxi 2020-0 Yes [id number] 25ug Take 1 [facility] ne 25 mcg 5-05 tablet by ity o f tablet 00:00: mouth [place] 00 every Medical morning. Branch atorvastati 2019-0 Yes [id number] 40mg Take 1 [facility] n 40 mg 5-05 tablet by ity of tablet 00:00: mouth at [place] 00 bedtime. Medical Branch nicotine 7 2020-0 Yes [id number] 1{patch Apply 1 [facility] mg/24 hr 5-05 } Patch to ity of patch 00:00: area(s) [place] 00 every 24 Medical ([facility] ur) hours. Apply 21mg patch daily x 6 weeks; then apply 14mg patch daily x 2 weeks; then apply 7mg patch daily x 2 weeks. Stop smoking on treatment onset nicotine 14 2020-0 Yes [id number] 1{patch Apply 1 [facility] mg/24 hr 5-05 } Patch to ity of patch 00:00: area(s) [place] 00 every 24 Medical ([facility] ur) hours. nicotine 21 2020-0 Yes [id number] 1{patch Apply 1 [facility] mg/24 hr 5-05 } Patch to ity of patch 00:00: area(s) [place] 00 every 24 Medical ([facility] ur) hours. Apply 21mg patch daily x 6 weeks; then apply 14mg patch daily x 2 weeks; then apply 7mg patch daily x 2 weeks. Stop smoking on treatment onset levothyroxi 2020-0 Yes [id number] 25ug Take 1 [facility] ne 25 mcg 5-05 tablet by ity o f tablet 00:00: mouth [place] 00 every Medical morning. Branch atorvastati 2020-0 Yes [id number] 40mg Take 1 [facility] n 40 mg 5-05 tablet by ity of tablet 00:00: mouth at [place] 00 bedtime. Medical Branch nicotine 7 2019- Yes [id number] 1{patch Apply 1 [facility] mg/24 hr 5-05 } Patch to ity of patch 00:00: area(s) [place] 00 every 24 Medical ([facility] ur) hours. Apply 21mg patch daily x 6 weeks; then apply 14mg patch daily x 2 weeks; then apply 7mg patch daily x 2 weeks. Stop smoking on treatment onset nicotine 14 2019- Yes [id number] 1{patch Apply 1 [facility] mg/24 hr 5-05 } Patch to ity of patch 00:00: area(s) [place] 00 every 24 Medical ([facility] ur) hours. nicotine 21 Yes [id number] 1{patch Apply 1 [facility] mg/24 hr 5-05 } Patch to ity of patch 00:00: area(s) [place] 00 every 24 Medical ([facility] ur) hours. Apply 21mg patch daily x 6 weeks; then apply 14mg patch daily x 2 weeks; then apply 7mg patch daily x 2 weeks. Stop smoking on treatment onset levothyroxi 2019- Yes [id number] 25ug Take 1 [facility] ne 25 mcg 5-05 tablet by ity o f tablet 00:00: mouth [place] 00 every Medical morning. Branch atorvastati 2019- Yes [id number] 40mg Take 1 [facility] n 40 mg 5-05 tablet by ity of tablet 00:00: mouth at [place] 00 bedtime. Medical Branch nicotine 7 2019- Yes [id number] 1{patch Apply 1 [facility] mg/24 hr 5-05 } Patch to ity of patch 00:00: area(s) [place] 00 every 24 Medical ([facility] ur) hours. Apply 21mg patch daily x 6 weeks; then apply 14mg patch daily x 2 weeks; then apply 7mg patch daily x 2 weeks. Stop smoking on treatment onset nicotine 14 2019- Yes [id number] 1{patch Apply 1 [facility] mg/24 hr 5-05 } Patch to ity of patch 00:00: area(s) [place] 00 every 24 Medical ([facility] ur) hours. nicotine 21 2019- Yes [id number] 1{patch Apply 1 [facility] mg/24 hr 5-05 } Patch to ity of patch 00:00: area(s) [place] 00 every 24 Medical ([facility] ur) hours. Apply 21mg patch daily x 6 weeks; then apply 14mg patch daily x 2 weeks; then apply 7mg patch daily x 2 weeks. Stop smoking on treatment onset levothyroxi 2020-0 Yes [id number] 25ug Take 1 [facility] ne 25 mcg 5-05 tablet by ity o f tablet 00:00: mouth [place] 00 every Medical morning. Branch atorvastati 2019-0 Yes [id number] 40mg Take 1 [facility] n 40 mg 5-05 tablet by ity of tablet 00:00: mouth at [place] 00 bedtime. Medical Branch nicotine 7 2019- Yes [id number] 1{patch Apply 1 [facility] mg/24 hr 5-05 } Patch to ity of patch 00:00: area(s) [place] 00 every 24 Medical ([facility] ur) hours. Apply 21mg patch daily x 6 weeks; then apply 14mg patch daily x 2 weeks; then apply 7mg patch daily x 2 weeks. Stop smoking on treatment onset nicotine 14 2019-0 Yes [id number] 1{patch Apply 1 [facility] mg/24 hr 5-05 } Patch to ity of patch 00:00: area(s) [place] 00 every 24 Medical ([facility] ur) hours. nicotine 21 2019-0 Yes [id number] 1{patch Apply 1 [facility] mg/24 hr 5-05 } Patch to ity of patch 00:00: area(s) [place] 00 every 24 Medical ([facility] ur) hours. Apply 21mg patch daily x 6 weeks; then apply 14mg patch daily x 2 weeks; then apply 7mg patch daily x 2 weeks. Stop smoking on treatment onset levothyroxi 2020-0 Yes [id number] 25ug Take 1 [facility] ne 25 mcg 5-05 tablet by ity o f tablet 00:00: mouth [place] 00 every Medical morning. Branch atorvastati 2019-0 Yes [id number] 40mg Take 1 [facility] n 40 mg 5-05 tablet by ity of tablet 00:00: mouth at [place] 00 bedtime. Medical Branch nicotine 7 2019-0 Yes [id number] 1{patch Apply 1 [facility] mg/24 hr 5-05 } Patch to ity of patch 00:00: area(s) [place] 00 every 24 Medical ([facility] Branch ur) hours. Apply 21mg patch daily x 6 weeks; then apply 14mg patch daily x 2 weeks; then apply 7mg patch daily x 2 weeks. Stop smoking on treatment onset nicotine 14 2020-0 Yes [id number] 1{patch Apply 1 [facility] mg/24 hr 5-05 } Patch to ity of patch 00:00: [facility]() [place] 00 every 24 Medical (twenty-[facility] Branch ur) hours. nicotine 21 2020-0 Yes [id number] 1{patch Apply 1 [facility] mg/24 hr 5-05 } Patch to ity of patch 00:00: [facility]() [place] 00 every 24 Medical (twenty-[facility] Branch ur) hours. Apply 21mg patch daily x 6 weeks; then apply 14mg patch daily x 2 weeks; then apply 7mg patch daily x 2 weeks. Stop smoking on treatment onset levothyroxi 2020-0 Yes [id number] 25ug Take 1 [facility] ne 25 mcg 5-05 tablet by ity o f tablet 00:00: mouth [place] 00 every Medical morning. Branch atorvastati 2019-0 Yes [id number] 40mg Take 1 [facility] n 40 mg 5-05 tablet by ity of tablet 00:00: mouth at [place] 00 bedtime. Medical Branch nicotine 7 2019-0 Yes [id number] 1{patch Apply 1 [facility] mg/24 hr 5-05 } Patch to ity of patch 00:00: [facility] [place] 00 every 24 Medical (twenty[facility] Branch ur) hours. Apply 21mg patch daily x 6 weeks; then apply 14mg patch daily x 2 weeks; then apply 7mg patch daily x 2 weeks. Stop smoking on treatment onset nicotine 14 2020-0 Yes [id number] 1{patch Apply 1 [facility] mg/24 hr 5-05 } Patch to ity of patch 00:00: [facility] [place] 00 every 24 Medical (twenty[facility] Branch ur) hours. nicotine 21 2020-0 Yes [id number] 1{patch Apply 1 [facility] mg/24 hr 5-05 } Patch to ity of patch 00:00: [facility]() [place] 00 every 24 Medical (twenty-[facility] Branch ur) hours. Apply 21mg patch daily x 6 weeks; then apply 14mg patch daily x 2 weeks; then apply 7mg patch daily x 2 weeks. Stop smoking on treatment onset levothyroxi 2020-0 Yes [id number] 25ug Take 1 [facility] ne 25 mcg 5-05 tablet by ity o f tablet 00:00: mouth [place] 00 every Medical morning. Branch atorvastati 2019-0 Yes [id number] 40mg Take 1 [facility] n 40 mg 5-05 tablet by ity of tablet 00:00: mouth at [place] 00 bedtime. Medical Branch nicotine 7 2019- Yes [id number] 1{patch Apply 1 [facility] mg/24 hr 5-05 } Patch to ity of patch 00:00: area(s) [place] 00 every 24 Medical ([facility] ur) hours. Apply 21mg patch daily x 6 weeks; then apply 14mg patch daily x 2 weeks; then apply 7mg patch daily x 2 weeks. Stop smoking on treatment onset nicotine 14 Yes [id number] 1{patch Apply 1 [facility] mg/24 hr 5-05 } Patch to ity of patch 00:00: area(s) [place] 00 every 24 Medical ([facility] ur) hours. nicotine 21 2019- Yes [id number] 1{patch Apply 1 [facility] mg/24 hr 5-05 } Patch to ity of patch 00:00: area(s) [place] 00 every 24 Medical ([facility] ur) hours. Apply 21mg patch daily x 6 weeks; then apply 14mg patch daily x 2 weeks; then apply 7mg patch daily x 2 weeks. Stop smoking on treatment onset levothyroxi 2019-0 Yes [id number] 25ug Take 1 [facility] ne 25 mcg 5-05 tablet by ity o f tablet 00:00: mouth [place] 00 every Medical morning. Branch atorvastati 2019-0 Yes [id number] 40mg Take 1 [facility] n 40 mg 5-05 tablet by ity of tablet 00:00: mouth at [place] 00 bedtime. Medical Branch nicotine 7 2019- Yes [id number] 1{patch Apply 1 [facility] mg/24 hr 5-05 } Patch to ity of patch 00:00: area(s) [place] 00 every 24 Medical ([facility] ur) hours. Apply 21mg patch daily x 6 weeks; then apply 14mg patch daily x 2 weeks; then apply 7mg patch daily x 2 weeks. Stop smoking on treatment onset nicotine 14 2019- Yes [id number] 1{patch Apply 1 [facility] mg/24 hr 5-05 } Patch to ity of patch 00:00: area(s) [place] 00 every 24 Medical (twenty- Branch ur) hours. nicotine 21 2020-0 Yes [id number] 1{patch Apply 1 [facility] mg/24 hr 5-05 } Patch to ity of patch 00:00: [facility](s) [place] 00 every 24 Medical (twenty- Branch ur) hours. Apply 21mg patch daily x 6 weeks; then apply 14mg patch daily x 2 weeks; then apply 7mg patch daily x 2 weeks. Stop smoking on treatment onset levothyroxi 2020-0 Yes [id number] 25ug Take 1 [facility] ne 25 mcg 5-05 tablet by ity o f tablet 00:00: mouth [place] 00 every Medical morning. Branch atorvastati 2020-0 Yes [id number] 40mg Take 1 [facility] n 40 mg 5-05 tablet by ity of tablet 00:00: mouth at [place] 00 bedtime. Medical Branch nicotine 7 2019-0 Yes [id number] 1{patch Apply 1 [facility] mg/24 hr 5-05 } Patch to ity of patch 00:00: [facility] [place] 00 every 24 Medical ([facility] ur) hours. Apply 21mg patch daily x 6 weeks; then apply 14mg patch daily x 2 weeks; then apply 7mg patch daily x 2 weeks. Stop smoking on treatment onset nicotine 14 2020-0 Yes [id number] 1{patch Apply 1 [facility] mg/24 hr 5-05 } Patch to ity of patch 00:00: [facility] [place] 00 every 24 Medical ([facility] ur) hours. nicotine 21 2020-0 Yes [id number] 1{patch Apply 1 [facility] mg/24 hr 5-05 } Patch to ity of patch 00:00: area(s) [place] 00 every 24 Medical (twenty- Branch ur) hours. Apply 21mg patch daily x 6 weeks; then apply 14mg patch daily x 2 weeks; then apply 7mg patch daily x 2 weeks. Stop smoking on treatment onset levothyroxi 2020-0 Yes [id number] 25ug Take 1 [facility] ne 25 mcg 5-05 tablet by ity o f tablet 00:00: mouth [place] 00 every Medical morning. Branch atorvastati 2020-0 Yes [id number] 40mg Take 1 [facility] n 40 mg 5-05 tablet by ity of tablet 00:00: mouth at [place] 00 bedtime. Medical Branch nicotine 7 2020-0 Yes [id number] 1{patch Apply 1 [facility] mg/24 hr 5-05 } Patch to ity of patch 00:00: area(s) [place] 00 every 24 [facility] hours. Apply 21mg patch daily x 6 weeks; then apply 14mg patch daily x 2 weeks; then apply 7mg patch daily x 2 weeks. Stop smoking on treatment onset nicotine 14 2020-0 Yes [id number] 1{patch Apply 1 [facility] mg/24 hr 5-05 } Patch to ity of patch 00:00: area(s) [place] 00 every 24 Medical [facility] hours. nicotine 21 2020-0 Yes [id number] 1{patch Apply 1 [facility] mg/24 hr 5-05 } Patch to ity of patch 00:00: [facility] [place] 00 every 24 Medical ([facility] ur) hours. Apply 21mg patch daily x 6 weeks; then apply 14mg patch daily x 2 weeks; then apply 7mg patch daily x 2 weeks. Stop smoking on treatment onset levothyroxi 2020-0 Yes [id number] 25ug Take 1 [facility] ne 25 mcg 5-05 tablet by ity o f tablet 00:00: mouth [place] 00 every Medical morning. Branch atorvastati 2020-0 Yes [id number] 40mg Take 1 [facility] n 40 mg 5-05 tablet by ity of tablet 00:00: mouth at [place] 00 bedtime. Medical Branch nicotine 7 2020-0 Yes [id number] 1{patch Apply 1 [facility] mg/24 hr 5-05 } Patch to ity of patch 00:00: area(s) [place] 00 every 24 Medical ([facility] ur) hours. Apply 21mg patch daily x 6 weeks; then apply 14mg patch daily x 2 weeks; then apply 7mg patch daily x 2 weeks. Stop smoking on treatment onset nicotine 14 2020-0 Yes [id number] 1{patch Apply 1 [facility] mg/24 hr 5-05 } Patch to ity of patch 00:00: area(s) [place] 00 every 24 Medical ([facility] ur) hours. nicotine 21 2020-0 Yes [id number] 1{patch Apply 1 [facility] mg/24 hr 5-05 } Patch to ity of patch 00:00: area(s) [place] 00 every 24 [facility] ur) hours. Apply 21mg patch daily x 6 weeks; then apply 14mg patch daily x 2 weeks; then apply 7mg patch daily x 2 weeks. Stop smoking on treatment onset levothyroxi 2020-0 Yes [id number] 25ug Take 1 [facility] ne 25 mcg 5-05 tablet by ity o f tablet 00:00: mouth [place] 00 every Medical morning. Branch atorvastati 2019-0 Yes [id number] 40mg Take 1 [facility] n 40 mg 5-05 tablet by ity of tablet 00:00: mouth at [place] 00 bedtime. Medical Branch nicotine 7 2019- Yes [id number] 1{patch Apply 1 [facility] mg/24 hr 5-05 } Patch to ity of patch 00:00: area(s) [place] 00 every 24 Medical (twenty[facility] Branch ur) hours. Apply 21mg patch daily x 6 weeks; then apply 14mg patch daily x 2 weeks; then apply 7mg patch daily x 2 weeks. Stop smoking on treatment onset nicotine 14 2019- Yes [id number] 1{patch Apply 1 [facility] mg/24 hr 5-05 } Patch to ity of patch 00:00: area(s) [place] 00 every 24 Medical (twenty-[facility] Branch ur) hours. nicotine 21 Yes [id number] 1{patch Apply 1 [facility] mg/24 hr 5-05 } Patch to ity of patch 00:00: area(s) [place] 00 every 24 Medical (twenty[facility] Branch ur) hours. Apply 21mg patch daily x 6 weeks; then apply 14mg patch daily x 2 weeks; then apply 7mg patch daily x 2 weeks. Stop smoking on treatment onset levothyroxi 2020-0 Yes [id number] 25ug Take 1 [facility] ne 25 mcg 5-05 tablet by ity o f tablet 00:00: mouth [place] 00 every Medical morning. Branch atorvastati 2019- Yes [id number] 40mg Take 1 [facility] n 40 mg 5-05 tablet by ity of tablet 00:00: mouth at [place] 00 bedtime. Medical Branch nicotine 7 2019- Yes [id number] 1{patch Apply 1 [facility] mg/24 hr 5-05 } Patch to ity of patch 00:00: area(s) [place] 00 every 24 Medical ([facility]enty[facility] Branch ur) hours. Apply 21mg patch daily x 6 weeks; then apply 14mg patch daily x 2 weeks; then apply 7mg patch daily x 2 weeks. Stop smoking on treatment onset nicotine 14 2019-0 Yes [id number] 1{patch Apply 1 [facility] mg/24 hr 5-05 } Patch to ity of patch 00:00: area(s) [place] 00 every 24 Medical (twenty- Branch ur) hours. nicotine 21 2019-0 Yes [id number] 1{patch Apply 1 [facility] mg/24 hr 5-05 } Patch to ity of patch 00:00: area(s) [place] 00 every 24 Medical (twenty- Branch ur) hours. Apply 21mg patch daily x 6 weeks; then apply 14mg patch daily x 2 weeks; then apply 7mg patch daily x 2 weeks. Stop smoking on treatment onset levothyroxi 2020-0 Yes [id number] 25ug Take 1 [facility] ne 25 mcg 5-05 tablet by ity o f tablet 00:00: mouth [place] 00 every Medical morning. Branch atorvastati 2019-0 Yes [id number] 40mg Take 1 [facility] n 40 mg 5-05 tablet by ity of tablet 00:00: mouth at [place] 00 bedtime. Medical Branch nicotine 7 2019-0 Yes [id number] 1{patch Apply 1 [facility] mg/24 hr 5-05 } Patch to ity of patch 00:00: area(s) [place] 00 every 24 Medical (twenty- Branch ur) hours. Apply 21mg patch daily x 6 weeks; then apply 14mg patch daily x 2 weeks; then apply 7mg patch daily x 2 weeks. Stop smoking on treatment onset nicotine 14 2019-0 Yes [id number] 1{patch Apply 1 [facility] mg/24 hr 5-05 } Patch to ity of patch 00:00: area(s) [place] 00 every 24 Medical ([facility] ur) hours. nicotine 21 2019-0 Yes [id number] 1{patch Apply 1 [facility] mg/24 hr 5-05 } Patch to ity of patch 00:00: area(s) [place] 00 every 24 Medical (twenty- Branch ur) hours. Apply 21mg patch daily x 6 weeks; then apply 14mg patch daily x 2 weeks; then apply 7mg patch daily x 2 weeks. Stop smoking on treatment onset levothyroxi 2020-0 Yes [id number] 25ug Take 1 [facility] ne 25 mcg 5-05 tablet by ity o f tablet 00:00: mouth [place] 00 every Medical morning. Branch atorvastati 2020-0 Yes [id number] 40mg Take 1 [facility] n 40 mg 5-05 tablet by ity of tablet 00:00: mouth at [place] 00 bedtime. Medical Branch levothyroxi 2020-0 Yes [id number] 25ug Take 1 [facility] ne 25 mcg 5-05 tablet by ity o f tablet 00:00: mouth [place] 00 every Medical morning. Branch atorvastati 2020-0 Yes [id number] 40mg Take 1 [facility] n 40 mg 5-05 tablet by ity of tablet 00:00: mouth at [place] 00 bedtime. Medical Branch levothyroxi 2020-0 Yes [id number] 25ug Take 1 [facility] ne 25 mcg 5-05 tablet by ity o f tablet 00:00: mouth [place] 00 every Medical morning. Branch atorvastati 2020-0 Yes [id number] 40mg Take 1 [facility] n 40 mg 5-05 tablet by ity of tablet 00:00: mouth at [place] 00 bedtime. Medical Branch levothyroxi 2020-0 Yes [id number] 25ug Take 1 [facility] ne 25 mcg 5-05 tablet by ity o f tablet 00:00: mouth [place] 00 every Medical morning. Branch atorvastati 2020-0 Yes [id number] 40mg Take 1 [facility] n 40 mg 5-05 tablet by ity of tablet 00:00: mouth at [place] 00 bedtime. Medical Branch levothyroxi 2020-0 Yes [id number] 25ug Take 1 [facility] ne 25 mcg 5-05 tablet by ity o f tablet 00:00: mouth [place] 00 every Medical morning. Branch atorvastati 2020-0 Yes [id number] 40mg Take 1 [facility] n 40 mg 5-05 tablet by ity of tablet 00:00: mouth at [place] 00 bedtime. Medical Branch levothyroxi 2020-0 Yes [id number] 25ug Take 1 [facility] ne 25 mcg 5-05 tablet by ity o f tablet 00:00: mouth [place] 00 every Medical morning. Branch atorvastati 2020-0 Yes [id number] 40mg Take 1 [facility] n 40 mg 5-05 tablet by ity of tablet 00:00: mouth at [place] 00 bedtime. Medical Branch levothyroxi 2020-0 Yes [id number] 25ug Take 1 [facility] ne 25 mcg 5-05 tablet by ity o f tablet 00:00: mouth [place] 00 every Medical morning. Branch atorvastati 2020-0 Yes [id number] 40mg Take 1 [facility] n 40 mg 5-05 tablet by ity of tablet 00:00: mouth at [place] 00 bedtime. Medical Branch atorvastati 2020- No [id number] 40mg Take 1 [facility] n 40 mg 01-11 03-31 tablet by ity of tablet 00:00: 00:00 mouth at [place] 00 :00 bedtime. Medical Branch levothyroxi 2020- No [id number] 25ug Take 1 [facility] ne 25 mcg 01-11 02-23 tablet by ity of tablet 00:00: 00:00 mouth [place] 00 :00 every Medical morning. Branch nicotine 7 2019- No [id number] 1{patch Apply 1 [facility] mg/24 hr 01-11 } Patch to ity of patch 00:00: 00:00 area(s) [place] 00 :00 every 24 Medical ([facility] ur) hours. Apply 21mg patch daily x 6 weeks; then apply 14mg patch daily x 2 weeks; then apply 7mg patch daily x 2 weeks. Stop smoking on treatment onset nicotine 14 No [id number] 1{patch Apply 1 [facility] mg/24 hr 01-11 } Patch to ity of patch 00:00: 00:00 area(s) [place] 00 :00 every 24 Medical ([facility] ur) hours. nicotine 21 No [id number] 1{patch Apply 1 [facility] mg/24 hr 01-11 } Patch to ity of patch 00:00: 00:00 area(s) [place] 00 :00 every 24 Medical ([facility] ur) hours. Apply 21mg patch daily x 6 weeks; then apply 14mg patch daily x 2 weeks; then apply 7mg patch daily x 2 weeks. Stop smoking on treatment onset nicotine 7 2019- No [id number] 1{patch Apply 1 [facility] mg/24 hr 01-11 } Patch to ity of patch 00:00: 00:00 area(s) [place] 00 :00 every 24 Medical ([facility] ur) hours. Apply 21mg patch daily x 6 weeks; then apply 14mg patch daily x 2 weeks; then apply 7mg patch daily x 2 weeks. Stop smoking on treatment onset nicotine 14 No [id number] 1{patch Apply 1 [facility] mg/24 hr 01-11 } Patch to ity of patch 00:00: 00:00 [facility](s) [place] 00 :00 every 24 Medical (twenty-[facility] Branch ur) hours. nicotine 21 2020- No [id number] 1{patch Apply 1 [facility] mg/24 hr 5-05 08-09 } Patch to ity of patch 00:00: 00:00 [facility]) [place] 00 :00 every 24 Medical (twenty-fo Branch ur) hours. Apply 21mg patch daily x 6 weeks; then apply 14mg patch daily x 2 weeks; then apply 7mg patch daily x 2 weeks. Stop smoking on treatment onset furosemide 2020- No 20mg Take 1 [facility] ers 20 mg 5-05 05-05 tablet by ity of tablet 00:00: 00:00 [facility] [place] 00 :00 daily. Medical Branch furosemide 2019- No 20mg Take 1 [facility] ers 20 mg 5-05 05-05 tablet by ity of tablet 00:00: 00:00 [facility] 00 :00 daily. Medical Branch FUROSEMIDE 2020-0 Yes [id number] TAKE ONE [facility] 20 mg 3-29 TABLET BY ity of tablet 00:00: MOUTH [place] 00 DAILY Medical Branch FUROSEMIDE 2020-0 Yes [id number] TAKE ONE [facility] 20 mg 3-29 TABLET BY ity of tablet 00:00: MOUTH [place] 00 DAILY Medical Branch FUROSEMIDE 2020-0 2020- No [id number] TAKE ONE [facility] 20 mg 3-29 05-05 TABLET BY ity of tablet 00:00: 00:00 MOUTH [place] 00 :00 DAILY Medical Branch FUROSEMIDE 2019-0 2020- No [id number] TAKE ONE [facility] 20 mg 3-29 05-05 TABLET BY ity of tablet 00:00: 00:00 MOUTH [place] 00 :00 DAILY Medical Branch LEVOTHYROXI 2019-1 Yes [id number] TAKE ONE [facility] NE 25 mcg 0-22 TABLET BY ity o f tablet 00:00: MOUTH [place] 00 EVERY Medical MORNING Branch LEVOTHYROXI 2019 Yes [id number] TAKE ONE [facility] NE 25 mcg 0-22 TABLET BY ity o f tablet 00:00: MOUTH [place] 00 EVERY Medical MORNING Branch LEVOTHYROXI 2018- 2020- No [id number] TAKE ONE [facility] NE 25 mcg 0-22 05-05 TABLET BY ity of tablet 00:00: 00:00 MOUTH [place] 00 :00 EVERY Medical MORNING Branch LEVOTHYROXI 2018-09 2020- No [id number] TAKE ONE [facility] NE 25 mcg 0-22 05-05 TABLET BY ity of tablet 00:00: 00:00 MOUTH [place] 00 :00 EVERY Medical MORNING Branch nicotine 2018-09 Yes [id number] 1{patch Apply 1 [facility] (NICODERM 0-03 } Patch to ity of CQ) 21 00:00: area(s) [place] mg/24 hr 00 every 24 Medical patch ([facility] ur) hours. Apply 21mg patch to skin qDay x 6wks, then apply 14 mg Patch to skin qDay x 2wks, then apply 7mg Patch to skin qDay x 2wks. Start on cigarette quit day nicotine 2018-09 Yes [id number] 1{patch Apply 1 [facility] (NICODERM 0-03 } Patch to ity of CQ) 21 00:00: area(s) [place] mg/24 hr 00 every 24 Medical patch ([facility] ur) hours. Apply 21mg patch to skin qDay x 6wks, then apply 14 mg Patch to skin qDay x 2wks, then apply 7mg Patch to skin qDay x 2wks. Start on cigarette quit day nicotine 2018-09 2020- No [id number] 1{patch Apply 1 [facility] (NICODERM 0-03 05-05 } Patch to ity o f CQ) 21 00:00: 00:00 area(s) [place] mg/24 hr 00 :00 every 24 Medical patch ([facility] ur) hours. Apply 21mg patch to skin qDay x 6wks, then apply 14 mg Patch to skin qDay x 2wks, then apply 7mg Patch to skin qDay x 2wks. Start on cigarette quit day nicotine 2018-09- No [id number] 1{patch Apply 1 [facility] (NICODERM 0-03 05-05 } Patch to ity o f CQ) 21 00:00: 00:00 area(s) [place] mg/24 hr 00 :00 every 24 Medical patch ([facility] ur) hours. Apply 21mg patch to skin qDay x 6wks, then apply 14 mg Patch to skin qDay x 2wks, then apply 7mg Patch to skin qDay x 2wks. Start on cigarette quit day FLUoxetine 2018-09 Yes 40mg Take 40 mg U nivers (PROZAC) 40 0-01 by mouth ity of mg capsule 18:57: daily. [address] Branch hydrOXYzine 2018-09 Yes 25mg Take [...] mouth ity of mg capsule 18:57: daily. [address] hydrOXYzine 2018-09 Yes 25mg Take 25 [...] mouth ity of mg capsule 18:57: daily. [address] hydrOXYzine 2018-09 Yes 25mg Take 25 mg Univers (ATARAX) 25 0-01 by mouth 2 it y of mg tablet 18:57: (two) [place] 50 times Medical daily. Branch Iloperidone 2018-09 Yes 1{tbl} Take 1 Tab [facility] (FANAPT) 6 0-01 by mouth 2 ity of mg Tab 18:57: (two) [place] 50 times Medical daily. Branch FLUoxetine 2018-09 Yes 40mg Take 40 mg U nivers (PROZAC) 40 0-01 by mouth ity of mg capsule 18:57: daily. [address] Branch hydrOXYzine 2018-09 Yes 25mg Take [...] mouth ity of mg capsule 18:57: daily. [address] hydrOXYzine 2018-09 Yes 25mg Take 25 [...] mouth ity of mg capsule 18:57: daily. [address] hydrOXYzine 2018-09 Yes 25mg Take 25 [...] mouth ity of mg capsule 18:57: daily. [address] hydrOXYzine 2018-09 Yes 25mg Take 25 [...] mouth ity of mg capsule 18:57: daily. [address] hydrOXYzine 2018-09 Yes 25mg Take 25 [...] mouth ity of mg capsule 18:57: daily. [address] Branch hydrOXYzine 2018-09 Yes 25mg Take [...] mouth ity of mg capsule 18:57: daily. [address] hydrOXYzine 2018-09 Yes 25mg Take 25 [...] mouth ity of mg capsule 18:57: daily. [address] Branch hydrOXYzine 2018-09 Yes 25mg Take [...] mouth ity of mg capsule 18:57: daily. [address] Branch Iloperidone 2018-09 Yes 1{tbl} Take 1 Tab [facility] (FANAPT) 6 0-01 by mouth 2 ity of mg Tab 18:57: (two) [place] 50 times Medical daily. Branch FLUoxetine 2018-09 Yes 40mg Take 40 mg U nivers (PROZAC) 40 0-01 by mouth ity of mg capsule 18:57: daily. [address] 2018-09 Yes 1{tbl} Take 1 Tab [facility] (FANAPT) 6 0-01 by mouth 2 ity of mg Tab 18:57: (two) [place] 50 times Medical daily. Branch FLUoxetine 2018-09 Yes 40mg Take 40 mg U nivers (PROZAC) 40 0-01 by mouth ity of mg capsule 18:57: daily. [address] 2018-09 Yes 1{tbl} Take 1 Tab [facility] (FANAPT) 6 0-01 by mouth 2 ity of mg Tab 18:57: (two) [place] 50 times Medical daily. Branch FLUoxetine 2018-09 Yes 40mg Take 40 mg U nivers (PROZAC) 40 0-01 by mouth ity of mg capsule 18:57: [facility]. [address] [facility] Yes 1{tbl} Take 1 Tab [facility] (FANAPT) 6 0-01 by mouth 2 ity of mg Tab 18:57: (two) [place] 50 times Medical daily. Branch FLUoxetine 2018-09 Yes 40mg Take 40 mg U nivers (PROZAC) 40 0-01 by mouth ity of mg capsule 18:57: daily. [address] 2018-09 Yes 1{tbl} Take 1 Tab [facility] (FANAPT) 6 0-01 by mouth 2 ity of mg Tab 18:57: (two) [place] 50 times Medical daily. Branch FLUoxetine 2018-09 Yes 40mg Take 40 mg U nivers (PROZAC) 40 0-01 by mouth ity of mg capsule 18:57: daily. [address] 2018-09 Yes 1{tbl} Take 1 Tab [facility] (FANAPT) 6 0-01 by mouth 2 ity of mg Tab 18:57: (two) [place] 50 times Medical daily. Branch FLUoxetine 2018-09 Yes 40mg Take 40 mg U nivers (PROZAC) 40 0-01 by mouth ity of mg capsule 18:57: daily. [address] 2018-09 Yes 1{tbl} Take 1 Tab [facility] (FANAPT) 6 0-01 by mouth 2 ity of mg Tab 18:57: (two) [place] 50 times Medical daily. Branch FUROSEMIDE 2020- No [id number] TAKE ONE [facility] 20 mg 9-17 03-29 TABLET BY ity of tablet 00:00: 00:00 MOUTH [place] 00 :00 DAILY Medical Branch FUROSEMIDE 2019-0 2020- No [id number] TAKE ONE [facility] 20 mg 7-18 03-29 TABLET BY ity of tablet 00:00: 00:00 MOUTH [place] 00 :00 DAILY [facility] Yes [id number] TAKE ONE [facility] N 40 mg 1-06 TABLET BY ity of tablet 00:00: MOUTH [place] 00 EVERY Medical NIGHT AT [facility] Yes [id number] TAKE ONE [facility] N 40 mg 1-06 TABLET BY ity of tablet 00:00: [address]OUTH [address] [facility] 2017-09 Yes [id number] TAKE ONE [facility] N 40 mg 1-06 TABLET BY ity of tablet 00:00: MOUTH [place] 00 EVERY Medical NIGHT AT [facility] 2017-09 Yes [id number] TAKE ONE [facility] N 40 mg 1-06 TABLET BY ity of tablet 00:00: MOUTH AT [address] [facility] 2017-09 2020- No [id number] TAKE ONE [facility] N 40 mg 1-06 05-05 TABLET BY ity of tablet 00:00: 00:00 MOUTH [place] 00 :00 EVERY Medical NIGHT AT [facility] 2017-09 2020- No [id number] TAKE ONE [facility] N 40 mg 1-06 05-05 TABLET BY ity of tablet 00:00: 00:00 MOUTH AT [place] [facility]-09 2020- No [id number] TAKE ONE [facility] N 40 mg 1-06 05-05 TABLET BY ity of tablet 00:00: 00:00 MOUTH [place] 00 :00 EVERY Medical NIGHT AT [facility] 2017-09 2020- No [id number] TAKE ONE [facility] N 40 mg 1-06 05-05 TABLET BY ity of tablet 00:00: 00:00 MOUTH AT [place] 00 :00 BEDTIME [facility] Branch proMETHazin 2018-0 Yes 25mg Take 1 Univ ers e 25 mg 9-19 tablet by ity of tablet 00:00: mouth [place] 00 every 6 Medical (six) Branch hours [...] needed for Nausea and Vomiting (N/V). proMETHazin 2018-2020- No 25mg Take 1 Uni vers e 25 mg 9-19 03-16 tablet by ity of tablet 00:00: 00:00 mouth [place] 00 :00 every 6 Medical (six) Branch hours as needed for Nausea and Vomiting (N/V). acetaminoph 2019- No 1{tbl} Take 1 U nivers en-codeine 9-19 05-05 tablet by ity of 300-30 mg 00:00: 00:00 mouth [place] tablet 00 :00 every 6 Medical (six) Branch hours as needed (pain). acetaminoph 2019- No 1{tbl} Take 1 U nivers en-codeine 05-28 05-05 tablet by ity of 300-30 mg [...] it y of mg capsule 00:00: (two) [place] 00 times Medical daily with Branch meals. ziprasidone 2016-0 Yes 60mg Take 60 mg Univers (GEODON) 60 9-07 by mouth 2 it y of mg capsule 00:00: (two) [place] 00 times Medical daily with Branch meals. ziprasidone 2016-0 Yes 60mg Take 60 mg Univers (GEODON) 60 9-07 by mouth 2 it y of mg capsule 00:00: (two) [place] 00 times Medical daily with Branch meals. ziprasidone 2016-0 Yes 60mg Take 60 mg [facility] (GEODON) 60 9-07 by mouth 2 it y of mg capsule 00:00: (two) [place] 00 times Medical daily with Branch meals. ziprasidone 2016-0 Yes 60mg Take 60 mg [facility] (GEODON) 60 9-07 by mouth 2 it y of mg capsule 00:00: (two) [place] 00 times Medical daily with Branch meals. ziprasidone 2016-0 Yes 60mg Take 60 mg [facility] (GEODON) 60 9-07 by mouth 2 it y of mg capsule 00:00: (two) [place] 00 times Medical daily with Branch meals. ziprasidone 2016-0 Yes 60mg Take 60 mg [facility] (GEODON) 60 9-07 by mouth 2 it y of mg capsule 00:00: (two) [place] 00 times Medical daily with Branch meals. ziprasidone 2016-0 Yes 60mg Take 60 mg [facility] (GEODON) 60 9-07 by mouth 2 it y of mg capsule 00:00: (two) [place] 00 times Medical daily with Branch meals. [...] it y of mg capsule 00:00: (two) [place] 00 times Medical daily with Branch meals. ziprasidone 2016-0 Yes 60mg Take 60 mg [facility] (GEODON) 60 9-07 by mouth 2 it y of mg capsule 00:00: (two) [place] 00 times Medical daily with Branch meals. ziprasidone 2016-0 Yes 60mg Take 60 mg [facility] (GEODON) 60 9-07 by mouth 2 it y of mg capsule 00:00: (two) [place] 00 times Medical daily with Branch meals. [...] it y of mg capsule 00:00: (two) [place] 00 times Medical daily with Branch meals. [...] it y of mg capsule 00:00: (two) [place] 00 times Medical daily with Branch meals. [...] it y of mg capsule 00:00: (two) [place] 00 times Medical daily with Branch meals. [...] it y of mg capsule 00:00: (two) 00 times Medical daily with Branch meals. ziprasidone 2016-0 Yes 60mg Take 60 mg Univers (GEODON) 60 9-07 by mouth 2 it y of mg capsule 00:00: (two) 00 times Medical daily with Branch meals. ziprasidone 2016-0 Yes 60mg Take 60 mg [facility] (GEODON) 60 9-07 by mouth 2 it y of mg capsule 00:00: (two) 00 times Medical daily with Branch meals. ziprasidone 2016-0 Yes 60mg Take 60 mg [facility] (GEODON) 60 9-07 by mouth 2 it y of mg capsule 00:00: (two) 00 times Medical daily with Branch meals. ziprasidone 2016-0 Yes 60mg Take 60 mg [facility] (GEODON) 60 9-07 by mouth 2 it y of mg capsule 00:00: (two) [place] 00 times Medical daily with Branch meals. ziprasidone 2016-0 Yes 60mg Take 60 mg [facility] (GEODON) 60 9-07 by mouth 2 it y of mg capsule 00:00: (two) 00 times Medical daily with Branch meals. EPITOL 200 2016-0 Yes 200mg Take 200 [facility] [place] mg tablet 8-31 mg by ity of 00:00: mouth [place] (two) Medical times Branch daily. EPITOL 200 2016-0 Yes 200mg Take 200 [facility] [place] mg tablet 8-31 mg by ity of 00:00: mouth [place] (two) Medical times Branch daily. EPITOL 200 2016-0 Yes 200mg Take 200 [facility] [place] mg tablet 8-31 mg by ity of 00:00: mouth [place] (two) Medical times Branch daily. EPITOL 200 2016-0 Yes 200mg Take 200 [facility] [place] mg tablet 8-31 mg by ity of 00:00: mouth [place] (two) Medical times Branch daily. EPITOL 200 2016-0 Yes 200mg Take 200 [facility] [place] mg tablet 8-31 mg by ity of 00:00: mouth [place] (two) Medical times Branch daily. EPITOL 200 2016-0 Yes 200mg Take 200 [facility] [place] mg tablet 8-31 mg by ity of 00:00: mouth [place] (two) Medical times Branch daily. EPITOL 200 [...] mg by ity of 00:00: mouth 2 00 (two) Medical times Branch daily. EPITOL 200 2015-0 Yes 200mg Take 200 [facility] [place] mg tablet 8-31 mg by ity of 00:00: mouth 2 00 (two) Medical times Branch daily. EPITOL 200 2015-0 Yes 200mg Take 200 [facility] [place] mg tablet 8-31 mg by ity of 00:00: mouth 2 (two) Medical times Branch daily. EPITOL 200 2015-0 Yes 200mg Take 200 [facility] [place] mg tablet 8-31 mg by ity of 00:00: mouth 2 (two) Medical times Branch daily. EPITOL 200 2020- No 200mg Take 200 U nivers mg [...] 00 daily. Medical SR tablet Branch buPROPion [id number] Yes 100mg Take 100 Uni vers SR [...] 15mg Take 15 mg U nivers SR 8- 03-16 by mouth 4 ity of (WELLBUTRIN 00:00: 00:00 (four) [place] as SR) 100 mg 00 :00 times Medical SR tablet daily as Branch needed for Other (anxiety). omeprazole Yes 40mg Take 40 mg U nivers (PRILOSEC) 8-25 by mouth ity o f 40 mg 00:00: daily. [place] capsule 00 Medical Branch omeprazole Yes 40mg Take 40 mg U nivers (PRILOSEC) 8-25 by mouth ity o f 40 mg 00:00: daily. [place] capsule 00 Medical Branch omeprazole 2016-0 Yes 40mg Take 40 mg U nivers (PRILOSEC) 8-25 by mouth ity o f 40 mg 00:00: daily. [place] capsule Medical Branch omeprazole 2016-0 Yes 40mg Take 40 mg U nivers (PRILOSEC) 8-25 by mouth ity o f 40 mg 00:00: daily. [place] capsule Medical [place] omeprazole 2016-0 Yes 40mg Take 40 mg U nivers (PRILOSEC) 8-25 by mouth ity o f 40 mg 00:00: daily. [place] capsule Medical [place] omeprazole 2016-0 Yes 40mg Take 40 mg U nivers (PRILOSEC) 8-25 by mouth ity o f 40 mg 00:00: daily. [place] capsule [facility] omeprazole 2016-0 Yes 40mg Take 40 mg U nivers (PRILOSEC) 8-25 by mouth ity o f 40 mg 00:00: daily. [place] capsule [facility] omeprazole 2016-0 Yes 40mg Take 40 mg U nivers (PRILOSEC) 8-25 by mouth ity o f 40 mg 00:00: daily. [place] capsule [facility] omeprazole 2016-0 Yes 40mg Take 40 mg U nivers (PRILOSEC) 8-25 by mouth ity o f 40 mg 00:00: daily. [place] capsule [facility] omeprazole 2016-0 Yes 40mg Take 40 mg U nivers (PRILOSEC) 8-25 by mouth ity o f 40 mg 00:00: daily. [place] capsule [facility] omeprazole 2016-0 Yes 40mg Take 40 mg U nivers (PRILOSEC) 8-25 by mouth ity o f 40 mg 00:00: daily. [place] capsule [facility] omeprazole 2016-0 Yes 40mg Take 40 mg U nivers (PRILOSEC) 8-25 by mouth ity o f 40 mg 00:00: daily. [place] capsule [facility] omeprazole 2016-0 Yes 40mg Take 40 mg U nivers (PRILOSEC) 8-25 by mouth ity o f 40 mg 00:00: daily. [place] capsule [facility] omeprazole 2016-0 Yes 40mg Take 40 mg U nivers (PRILOSEC) 8-25 by mouth ity o f 40 mg 00:00: daily. [place] capsule [facility] omeprazole 2016-0 Yes 40mg Take 40 mg U nivers (PRILOSEC) 8-25 by mouth ity o f 40 mg 00:00: daily. [place] capsule Medical Branch omeprazole 2016-0 Yes 40mg Take 40 mg U nivers (PRILOSEC) 8-25 by mouth ity o f 40 mg 00:00: daily. [place] capsule [facility] omeprazole 2016-0 Yes 40mg Take 40 mg U nivers (PRILOSEC) 8-25 by mouth ity o f 40 mg 00:00: daily. [place] capsule [facility] omeprazole 2016-0 Yes 40mg Take 40 mg U nivers (PRILOSEC) 8-25 by mouth ity o f 40 mg 00:00: daily. [place] capsule [facility] omeprazole 2016-0 Yes 40mg Take 40 mg U nivers (PRILOSEC) 8-25 by mouth ity o f 40 mg 00:00: daily. [place] capsule [facility] omeprazole 2016-0 Yes 40mg Take 40 mg U nivers (PRILOSEC) 8-25 by mouth ity o f 40 mg 00:00: daily. [place] capsule [facility] omeprazole 2016-0 Yes 40mg Take 40 mg U nivers (PRILOSEC) 8-25 by mouth ity o f 40 mg 00:00: daily. [place] [facility] omeprazole 2016-0 Yes 40mg Take 40 mg U nivers (PRILOSEC) 8-25 by mouth ity o f 40 mg 00:00: daily. [place] [facility] omeprazole 2016-0 Yes 40mg Take 40 mg U nivers (PRILOSEC) 8-25 by mouth ity o f 40 mg 00:00: daily. [place] [facility] omeprazole 2016-0 Yes 40mg Take 40 mg U nivers (PRILOSEC) 8-25 by mouth ity o f 40 mg 00:00: daily. [place] [facility] omeprazole 2016-0 Yes 40mg Take 40 mg U nivers (PRILOSEC) 8-25 by mouth ity o f 40 mg 00:00: daily. [place] [facility] omeprazole 2016-0 Yes 40mg Take 40 mg [...] daily. [place] [facility] omeprazole 2016-0 2020- No 40mg Take 40 mg Univers (PRILOSEC) 8-25 03-16 by mouth ity of 40 mg 00:00: 00:00 daily. [place] capsule 00 :00 [facility] Immunizations Ordered Filled Immunization Date Status Comments Sourc e Immunization Name Name SARS-COV-2 COVID-19 2021-05-24 Completed Unive rsity of MODERNA VACCINE 00:00:00 [facility] [place] [facility] SARS-COV-2 COVID-19 2021-05-24 Completed Unive rsity of MODERNA VACCINE 00:00:00 [place] [facility] SARS-COV-2 COVID-19 2021-05-24 Completed Unive rsity of MODERNA VACCINE 00:00:00 [place] [facility] SARS-COV-2 COVID-19 2021-05-24 Completed Unive rsity of MODERNA VACCINE 00:00:00 [place] [facility] SARS-COV-2 COVID-19 2021-05-24 Completed Unive rsity of MODERNA VACCINE 00:00:00 [place] [facility] SARS-COV-2 COVID-19 2021-05-24 Completed Unive rsity of MODERNA VACCINE 00:00:00 [place] [facility] SARS-COV-2 COVID-19 2021-05-24 Completed Unive [...] Unive rsity of MODERNA VACCINE 00:00:00 [place] [facility] ical Branch SARS-COV-2 COVID-19 2020-10-18 Completed Unive rsity of MODERNA VACCINE 00:00:00 [place] [facility] ical Branch SARS-COV-2 COVID-19 2020-10-18 Completed Unive rsity of MODERNA VACCINE 00:00:00 [place] [facility] ical Branch SARS-COV-2 COVID-19 2020-09-20 Completed Unive rsity of MODERNA VACCINE 00:00:00 [place] [facility] ical Branch SARS-COV-2 COVID-19 2020-09-20 Completed Unive rsity of MODERNA VACCINE 00:00:00 [place] [facility] ical Branch SARS-COV-2 COVID-19 2020-09-20 Completed Unive rsity of MODERNA VACCINE 00:00:00 [place] [facility] SARS-COV-2 COVID-19 2020-09-20 Completed Unive rsity of MODERNA VACCINE 00:00:00 [place] [facility] ical Branch SARS-COV-2 COVID-19 2020-09-20 Completed Unive rsity of MODERNA VACCINE 00:00:00 [place] [facility] ical Branch SARS-COV-2 COVID-19 2020-09-20 Completed Unive rsity of MODERNA VACCINE 00:00:00 [place] [facility] ical Branch SARS-COV-2 COVID-19 2020-09-20 Completed Unive [...] Unive rsity of MODERNA VACCINE 00:00:00 [place] [facility] ical Branch SARS-COV-2 COVID-19 2020-09-20 Completed Unive rsity of MODERNA VACCINE 00:00:00 [place] [facility] ical Branch SARS-COV-2 COVID-19 2020-09-20 Completed Unive rsity of MODERNA VACCINE 00:00:00 [place] [facility] SARS-COV-2 COVID-19 2020-09-20 Completed Unive rsity of MODERNA VACCINE 00:00:00 [place] [facility] ical Branch SARS-COV-2 COVID-19 2020-09-20 Completed Unive rsity of MODERNA VACCINE 00:00:00 [place] [facility] SARS-COV-2 COVID-19 2020-09-20 Completed Unive rsity of MODERNA VACCINE 00:00:00 [place] [facility] SARS-COV-2 COVID-19 2020-09-20 Completed Unive rsity of MODERNA VACCINE 00:00:00 [place] [facility] SARS-COV-2 COVID-19 2020-09-20 Completed Unive rsity of MODERNA VACCINE 00:00:00 [place] [facility] ical Branch SARS-COV-2 COVID-19 2020-09-20 Completed Unive rsity of MODERNA VACCINE 00:00:00 [facility] [place] [facility] SARS-COV-2 COVID-19 2020-09-20 Completed Unive rsity of MODERNA VACCINE 00:00:00 [facility] [place] [facility] SARS-COV-2 COVID-19 2020-09-20 Completed Unive rsity of MODERNA VACCINE 00:00:00 [facility] [place] [facility] SARS-COV-2 COVID-19 2020-09-20 Completed Unive rsity of MODERNA VACCINE 00:00:00 [facility] [place] [facility] SARS-COV-2 COVID-19 2020-09-20 Completed Unive rsity of MODERNA VACCINE 00:00:00 [facility] [place] [facility] SARS-COV-2 COVID-19 2020-09-20 Completed Unive rsity of MODERNA VACCINE 00:00:00 [facility] [place] [facility] SARS-COV-2 COVID-19 2020-09-20 Completed Unive rsity of MODERNA VACCINE 00:00:00 [facility] [place] [facility] SARS-COV-2 COVID-19 2020-09-20 Completed Unive rsity of MODERNA VACCINE 00:00:00 [facility] [place] [facility] SARS-COV-2 COVID-19 2020-09-20 Completed Unive rsity of MODERNA VACCINE 00:00:00 [facility] [place] [facility] SARS-COV-2 COVID-19 2020-09-20 Completed Unive rsity of MODERNA VACCINE 00:00:00 [facility] SARS-COV-2 COVID-19 2020-09-20 Completed Unive rsity of MODERNA VACCINE 00:00:00 [facility] [place] [facility] SARS-COV-2 COVID-19 2020-09-20 Completed Unive rsity of MODERNA VACCINE 00:00:00 [facility] SARS-COV-2 COVID-19 2020-09-20 Completed Unive rsity of MODERNA VACCINE 00:00:00 [facility] SARS-COV-2 COVID-19 2020-09-20 Completed Unive rsity of MODERNA VACCINE 00:00:00 [facility] Influenza Virus 2020-08-09 Completed Universit y of Vaccine Quad .5 mL 00:00:00 [facility] 6+ MO Branch TDAP 2020-08-09 Completed University of 00:00:00 [facility] Pneumococcal 2020-08-09 Completed University o f Polysaccharide, 00:00:00 [place] [facility] PPSV23 (PNEUMOVAX) Branch Influenza Virus 2020-08-09 Completed Universit y of Vaccine Quad .5 mL 00:00:00 [facility] 6+ MO Branch TDAP 2020-08-09 Completed University of 00:00:00 [facility] Pneumococcal 2020-08-09 Completed University o f Polysaccharide, 00:00:00 [place] [facility] PPSV23 (PNEUMOVAX) Branch Influenza Virus 2020-08-09 Completed Universit y of Vaccine Quad .5 mL 00:00:00 [facility] 6+ MO Branch TDAP 2020-08-09 Completed University of 00:00:00 [facility] Pneumococcal 2020-08-09 Completed University o f Polysaccharide, 00:00:00 [place] [facility] PPSV23 (PNEUMOVAX) Branch Influenza Virus 2020-08-09 Completed Universit y of Vaccine Quad .5 mL 00:00:00 [facility] 6+ MO [place] TDAP 2020-08-09 Completed University of 00:00:00 [facility] Pneumococcal 2020-08-09 Completed University o f Polysaccharide, 00:00:00 [place] [facility] PPSV23 (PNEUMOVAX) Branch Influenza Virus 2020-08-09 Completed Universit y of Vaccine Quad .5 mL 00:00:00 [facility] 6+ MO [place] TDAP 2020-08-09 Completed University of 00:00:00 [facility] Pneumococcal 2020-08-09 Completed University o f Polysaccharide, 00:00:00 [place] [facility] PPSV23 (PNEUMOVAX) Branch Influenza Virus 2020-08-09 Completed Universit y of Vaccine Quad .5 mL 00:00:00 [facility] 6+ MO Branch TDAP 2020-08-09 Completed University of 00:00:00 [facility] Pneumococcal 2020-08-09 Completed University o f Polysaccharide, 00:00:00 [place] [facility] PPSV23 (PNEUMOVAX) Branch Influenza Virus 2020-08-09 Completed Universit y of Vaccine Quad .5 mL 00:00:00 [facility] 6+ MO [place] TDAP 2020-08-09 Completed University of 00:00:00 [facility] Pneumococcal 2020-08-09 Completed University o f Polysaccharide, 00:00:00 [place] [facility] PPSV23 (PNEUMOVAX) Branch Influenza Virus 2020-08-09 Completed Universit y of Vaccine Quad .5 mL 00:00:00 [facility] 6+ MO Branch TDAP 2020-08-09 Completed University of 00:00:00 [facility] Pneumococcal 2020-08-09 Completed University o f Polysaccharide, 00:00:00 [place] [facility] PPSV23 (PNEUMOVAX) Branch Influenza Virus 2020-08-09 Completed Universit y of Vaccine Quad .5 mL 00:00:00 [facility] 6+ MO Branch TDAP 2020-08-09 Completed University of 00:00:00 [facility] Pneumococcal 2020-08-09 Completed University o f Polysaccharide, 00:00:00 [place] [facility] PPSV23 (PNEUMOVAX) Branch Influenza Virus 2020-08-09 Completed Universit y of Vaccine Quad .5 mL 00:00:00 [facility] 6+ MO [place] TDAP 2020-08-09 Completed University of 00:00:00 [facility] Pneumococcal 2020-08-09 Completed University o f Polysaccharide, 00:00:00 [place] [facility] PPSV23 (PNEUMOVAX) Branch Influenza Virus 2020-08-09 Completed Universit y of Vaccine Quad .5 mL 00:00:00 [facility] 6+ MO [place] TDAP 2020-08-09 Completed University of 00:00:00 [facility] Pneumococcal 2020-08-09 Completed University o f Polysaccharide, 00:00:00 [place] [facility] PPSV23 (PNEUMOVAX) Branch Influenza Virus 2020-08-09 Completed Universit y of Vaccine Quad .5 mL 00:00:00 [facility] 6+ MO [place] TDAP 2020-08-09 Completed University of 00:00:00 [facility] Pneumococcal 2020-08-09 Completed University o f Polysaccharide, 00:00:00 [place] [facility] PPSV23 (PNEUMOVAX) Branch Influenza Virus 2020-08-09 Completed Universit y of Vaccine Quad .5 mL 00:00:00 [facility] 6+ MO [place] TDAP 2020-08-09 Completed University of 00:00:00 [facility] Pneumococcal 2020-08-09 Completed University o f Polysaccharide, 00:00:00 [place] [facility] PPSV23 (PNEUMOVAX) [place] Influenza Virus 2020-08-09 Completed Universit y of Vaccine Quad .5 mL 00:00:00 [facility] 6+ MO Branch TDAP 2020-08-09 Completed University of 00:00:00 [facility] Pneumococcal 2020-08-09 Completed University o f Polysaccharide, 00:00:00 [place] [facility] PPSV23 (PNEUMOVAX) Branch Influenza Virus 2020-08-09 Completed Universit y of Vaccine Quad .5 mL 00:00:00 [facility] 6+ MO Branch TDAP 2020-08-09 Completed University of 00:00:00 [facility] Pneumococcal 2020-08-09 Completed University o f Polysaccharide, 00:00:00 [place] [facility] PPSV23 (PNEUMOVAX) Branch Influenza Virus 2020-08-09 Completed Universit y of Vaccine Quad .5 mL 00:00:00 [facility] 6+ MO Branch TDAP 2020-08-09 Completed University of 00:00:00 [facility] Pneumococcal 2020-08-09 Completed University o f Polysaccharide, 00:00:00 [place] [facility] PPSV23 (PNEUMOVAX) Branch Influenza Virus 2020-08-09 Completed Universit y of Vaccine Quad .5 mL 00:00:00 [facility] 6+ MO [place] TDAP 2020-08-09 Completed University of 00:00:00 [facility] Pneumococcal 2020-08-09 Completed University o f Polysaccharide, 00:00:00 [place] [facility] PPSV23 (PNEUMOVAX) Branch Influenza Virus 2020-08-09 Completed Universit y of Vaccine Quad .5 mL 00:00:00 [facility] 6+ MO [place] TDAP 2020-08-09 Completed University of 00:00:00 [facility] Pneumococcal 2020-08-09 Completed University o f Polysaccharide, 00:00:00 [place] [facility] PPSV23 (PNEUMOVAX) Branch Influenza Virus 2020-08-09 Completed Universit y of Vaccine Quad .5 mL 00:00:00 [facility] 6+ MO Branch TDAP 2020-08-09 Completed University of 00:00:00 [facility] Pneumococcal 2020-08-09 Completed University o f Polysaccharide, 00:00:00 [place] [facility] PPSV23 (PNEUMOVAX) Branch Influenza Virus 2020-08-09 Completed Universit y of Vaccine Quad .5 mL 00:00:00 [facility] 6+ MO [place] TDAP 2020-08-09 Completed University of 00:00:00 [facility] Pneumococcal 2020-08-09 Completed University o f Polysaccharide, 00:00:00 [place] [facility] PPSV23 (PNEUMOVAX) Branch Influenza Virus 2020-08-09 Completed Universit y of Vaccine Quad .5 mL 00:00:00 [facility] 6+ MO Branch TDAP 2020-08-09 Completed University of 00:00:00 [facility] Pneumococcal 2020-08-09 Completed University o f Polysaccharide, 00:00:00 [place] [facility] PPSV23 (PNEUMOVAX) Branch Influenza Virus 2020-08-09 Completed Universit y of Vaccine Quad .5 mL 00:00:00 [facility] 6+ MO Branch TDAP 2020-08-09 Completed University of 00:00:00 [facility] Pneumococcal 2020-08-09 Completed University o f Polysaccharide, 00:00:00 [place] [facility] PPSV23 (PNEUMOVAX) Branch Influenza Virus 2020-08-09 Completed Universit y of Vaccine Quad .5 mL 00:00:00 [facility] 6+ MO [place] TDAP 2020-08-09 Completed University of 00:00:00 [facility] Pneumococcal 2020-08-09 Completed University o f Polysaccharide, 00:00:00 [place] [facility] PPSV23 (PNEUMOVAX) Branch Influenza Virus 2020-08-09 Completed Universit y of Vaccine Quad .5 mL 00:00:00 [facility] 6+ MO [place] TDAP 2020-08-09 Completed University of 00:00:00 [facility] Pneumococcal 2020-08-09 Completed University o f Polysaccharide, 00:00:00 [place] [facility] PPSV23 (PNEUMOVAX) Branch Influenza Virus 2020-08-09 Completed Universit y of Vaccine Quad .5 mL 00:00:00 [facility] 6+ MO [place] TDAP 2020-08-09 Completed University of 00:00:00 [facility] Pneumococcal 2020-08-09 Completed University o f Polysaccharide, 00:00:00 [place] [facility] PPSV23 (PNEUMOVAX) Branch Influenza Virus 2020-08-09 Completed Universit y of Vaccine Quad .5 mL 00:00:00 [facility] 6+ MO [place] TDAP 2020-08-09 Completed University of 00:00:00 [facility] Pneumococcal 2020-08-09 Completed University o f Polysaccharide, 00:00:00 [place] [facility] PPSV23 (PNEUMOVAX) Branch Influenza Virus 2020-08-09 Completed Universit y of Vaccine Quad .5 mL 00:00:00 [facility] 6+ MO Branch TDAP 2020-08-09 Completed University of 00:00:00 [facility] Pneumococcal 2020-08-09 Completed University o f Polysaccharide, 00:00:00 [place] [facility] PPSV23 (PNEUMOVAX) Branch Influenza Virus 2020-08-09 Completed Universit y of Vaccine Quad .5 mL 00:00:00 [facility] 6+ MO [place] TDAP 2020-08-09 Completed University of 00:00:00 [facility] Pneumococcal 2020-08-09 Completed University o f Polysaccharide, 00:00:00 [place] [facility] PPSV23 (PNEUMOVAX) Branch Influenza Virus 2020-08-09 Completed Universit y of Vaccine Quad .5 mL 00:00:00 [facility] 6+ MO [place] TDAP 2020-08-09 Completed University of 00:00:00 [facility] Pneumococcal 2020-08-09 Completed University o f Polysaccharide, 00:00:00 [place] [facility] PPSV23 (PNEUMOVAX) [place] Influenza Virus 2020-08-09 Completed Universit y of Vaccine Quad .5 mL 00:00:00 [facility] 6+ MO [place] TDAP 2020-08-09 Completed University of 00:00:00 [facility] Pneumococcal 2020-08-09 Completed University o f Polysaccharide, 00:00:00 [place] [facility] PPSV23 (PNEUMOVAX) Branch Influenza Virus 2020-08-09 Completed Universit y of Vaccine Quad .5 mL 00:00:00 [facility] 6+ MO [place] TDAP 2020-08-09 Completed University of 00:00:00 [facility] Pneumococcal 2020-08-09 Completed University o f Polysaccharide, 00:00:00 [place] [facility] PPSV23 (PNEUMOVAX) Branch Influenza Virus 2020-08-09 Completed Universit y of Vaccine Quad .5 mL 00:00:00 [facility] 6+ MO [place] TDAP 2020-08-09 Completed University of 00:00:00 [facility] Pneumococcal 2020-08-09 Completed University o f Polysaccharide, 00:00:00 [place] [facility] PPSV23 (PNEUMOVAX) Branch Influenza Virus 2020-08-09 Completed Universit y of Vaccine Quad .5 mL 00:00:00 [facility] 6+ MO [place] TDAP 2020-08-09 Completed University of 00:00:00 [facility] Influenza Virus 2020-08-09 Completed Universit y of Vaccine Quad .5 mL 00:00:00 [facility] 6+ MO Branch TDAP 2020-08-09 Completed University of 00:00:00 [facility] Pneumococcal 2020-08-09 Completed University o f Polysaccharide, 00:00:00 [place] [facility] PPSV23 (PNEUMOVAX) Branch Pneumococcal 2020-08-09 Completed University o f Polysaccharide, 00:00:00 [place] [facility] PPSV23 (PNEUMOVAX) Branch Influenza Virus 2020-08-09 Completed Universit y of Vaccine Quad .5 mL 00:00:00 [facility] 6+ MO Branch TDAP 2020-08-09 Completed University of 00:00:00 [facility] Pneumococcal 2020-08-09 Completed University o f Polysaccharide, 00:00:00 [place] [facility] PPSV23 (PNEUMOVAX) Branch Influenza Virus 2020-08-09 Completed Universit y of Vaccine Quad .5 mL 00:00:00 [facility] 6+ MO Branch TDAP 2020-08-09 Completed University of 00:00:00 [facility] Pneumococcal 2020-08-09 Completed University o f Polysaccharide, 00:00:00 [place] [facility] PPSV23 (PNEUMOVAX) Branch Influenza Virus 2020-08-09 Completed Universit y of Vaccine Quad .5 mL 00:00:00 [facility] 6+ MO Branch TDAP 2020-08-09 Completed University of 00:00:00 [facility] Pneumococcal 2020-08-09 Completed University o f Polysaccharide, 00:00:00 [place] [facility] PPSV23 (PNEUMOVAX) Branch Influenza Virus 2020-08-09 Completed Universit y of Vaccine Quad .5 mL 00:00:00 [facility] 6+ MO Branch TDAP 2020-08-09 Completed University of 00:00:00 [facility] Pneumococcal 2020-08-09 Completed University o f Polysaccharide, 00:00:00 [place] [facility] PPSV23 (PNEUMOVAX) Branch Influenza Virus 2020-08-09 Completed Universit y of Vaccine Quad .5 mL 00:00:00 [facility] 6+ MO Branch TDAP 2020-08-09 Completed University of 00:00:00 [facility] Pneumococcal 2020-08-09 Completed University o f Polysaccharide, 00:00:00 [place] [facility] PPSV23 (PNEUMOVAX) Branch Influenza Virus 2020-08-09 Completed Universit y of Vaccine Quad .5 mL 00:00:00 [facility] 6+ MO Branch TDAP 2020-08-09 Completed University of 00:00:00 [facility] Pneumococcal 2020-08-09 Completed University o f Polysaccharide, 00:00:00 [place] [facility] PPSV23 (PNEUMOVAX) Branch Influenza Virus 2020-08-09 Completed Universit y of Vaccine Quad .5 mL 00:00:00 [facility] 6+ MO Branch TDAP 2020-08-09 Completed University of 00:00:00 [facility] Pneumococcal 2020-08-09 Completed University o f Polysaccharide, 00:00:00 [place] [facility] PPSV23 (PNEUMOVAX) Branch Influenza Virus 2020-08-09 Completed Universit y of Vaccine Quad .5 mL 00:00:00 [facility] 6+ MO Branch TDAP 2020-08-09 Completed University of 00:00:00 [facility] Pneumococcal 2020-08-09 Completed University o f Polysaccharide, 00:00:00 [place] [facility] PPSV23 (PNEUMOVAX) Branch PPD (TB) 2016-01-17 Completed University of 00:00:00 [facility] PPD (TB) 2016-01-17 Completed University of 00:00:00 [facility] PPD (TB) 2016-01-17 Completed University of 00:00:00 [facility] PPD (TB) 2016-01-17 Completed University of 00:00:00 [facility] PPD (TB) 2016-01-17 Completed University of 00:00:00 [facility] PPD (TB) 2016-01-17 Completed University of 00:00:00 [facility] PPD (TB) 2016-01-17 Completed University of 00:00:00 [facility] PPD (TB) 2016-01-17 Completed University of 00:00:00 [facility] PPD (TB) 2016-01-17 Completed University of 00:00:00 [facility] PPD (TB) 2016-01-17 Completed University of 00:00:00 [facility] PPD (TB) 2016-01-17 Completed University of 00:00:00 [facility] PPD (TB) 2016-01-17 Completed University of 00:00:00 [facility] PPD (TB) 2016-01-17 Completed University of 00:00:00 [facility] PPD (TB) 2016-01-17 Completed University of 00:00:00 [facility] PPD (TB) 2016-01-17 Completed University of 00:00:00 [facility] PPD (TB) 2016-01-17 Completed University of 00:00:00 [facility] PPD (TB) 2016-01-17 Completed University of 00:00:00 [facility] PPD (TB) 2016-01-17 Completed University of 00:00:00 [facility] PPD (TB) 2016-01-17 Completed University of 00:00:00 [facility] PPD (TB) 2016-01-17 Completed University of 00:00:00 [facility] PPD (TB) 2016-01-17 Completed University of 00:00:00 [facility] PPD (TB) 2016-01-17 Completed University of 00:00:00 [facility] PPD (TB) 2016-01-17 Completed University of 00:00:00 [facility] PPD (TB) 2016-01-17 Completed University of 00:00:00 [facility] PPD (TB) 2016-01-17 Completed University of 00:00:00 [facility] PPD (TB) 2016-01-17 Completed University of 00:00:00 [facility] PPD (TB) 2016-01-17 Completed University of 00:00:00 [facility] PPD (TB) 2016-01-17 Completed University of 00:00:00 [facility] PPD (TB) 2016-01-17 Completed University of 00:00:00 [facility] PPD (TB) 2016-01-17 Completed University of 00:00:00 [facility] PPD (TB) 2016-01-17 Completed [facility] of 00:00:00 [facility] PPD (TB) 2016-01-17 Completed [facility] of 00:00:00 [facility] PPD (TB) 2016-01-17 Completed [facility] of 00:00:00 [facility] PPD (TB) 2016-01-17 Completed [facility] of 00:00:00 [facility] PPD (TB) 2016-01-17 Completed [facility] of 00:00:00 [facility] PPD (TB) 2016-01-17 Completed [facility] of 00:00:00 [facility] PPD (TB) 2016-01-17 Completed [facility] of 00:00:00 [facility] PPD (TB) 2016-01-17 Completed [facility] of 00:00:00 [facility] PPD (TB) 2016-01-17 Completed [facility] of 00:00:00 [facility] PPD (TB) 2016-01-17 Completed [facility] of 00:00:00 [facility] PPD (TB) 2016-01-17 Completed [facility] of 00:00:00 [facility] PPD (TB) 2016-01-17 Completed [facility] of 00:00:00 [facility] PPD (TB) 2016-01-17 Completed [facility] of 00:00:00 [facility] PPD (TB) 2016-01-17 Completed [facility] of 00:00:00 [facility] PPD (TB) 2016-01-17 Completed [facility] of 00:00:00 [facility] PPD (TB) 2016-01-17 Completed [facility] of 00:00:00 [facility] PPD (TB) 2016-01-17 Completed [facility] of 00:00:00 [facility] PPD (TB) 2016-01-17 Completed [facility] of 00:00:00 [facility] PPD (TB) 2016-01-17 Completed [facility] of 00:00:00 [facility] PPD (TB) 2016-01-17 Completed [facility] of 00:00:00 [facility] PPD (TB) 2016-01-17 Completed [facility] of 00:00:00 [facility] PPD (TB) 2016-01-17 Completed [facility] of 00:00:00 [facility] PPD (TB) 2016-01-17 Completed [facility] of 00:00:00 [facility] PPD (TB) 2016-01-17 Completed [facility] of 00:00:00 [facility] PPD (TB) 2016-01-17 Completed [facility] of 00:00:00 [facility] PPD (TB) 2016-01-17 Completed University of 00:00:00 [facility] PPD (TB) 2016-01-17 Completed University of 00:00:00 [facility] PPD (TB) 2016-01-17 Completed [facility] of 00:00:00 [facility] PPD (TB) 2016-01-17 Completed [facility] of 00:00:00 [facility] PPD (TB) 2016-01-17 Completed [facility] of 00:00:00 [facility] Vital Signs Vital Name Observation Time Observation Value Comments Source Systolic blood 2021-07-30 18:30:00 96 mm[Hg] Univer sity of pressure [facility] Diastolic blood 2021-07-30 18:30:00 54 mm[Hg] Unive rsity of pressure [facility] Heart rate 2021-07-30 18:30:00 67 /min Universi ty [facility] Respiratory rate 2021-07-30 18:30:00 18 /min [facility] Body temperature 2021-07-30 17:10:00 36.22 Leila [facility] Body weight 2021-07-30 17:10:00 83.915 kg [facility] BMI 2021-07-30 17:10:00 25.80 kg/m2 [facility] Oxygen saturation in 2021-07-30 17:10:00 98 /min University of Arterial blood by [employer] arnel Pulse oxim[facility] Branch Systolic blood 2021-03-10 19:08:00 93 mm[Hg] Univer sity of pressure [facility] Diastolic blood 2021-03-10 19:08:00 60 mm[Hg] Unive rsity of pressure [facility] Heart rate 2021-03-10 19:06:00 84 /min [facility] Body height 2021-03-10 19:06:00 180.3 cm [facility] Body weight 2021-03-10 19:06:00 88.451 kg [facility] BMI 2021-03-10 19:06:00 27.20 kg/m2 [facility] Oxygen saturation in 2021-03-10 19:06:00 98 /min University of Arterial blood by [place] [employer] [facility] Pulse oxim[facility] Branch Systolic blood 2020-12-09 16:15:00 111 mm[Hg] Univer sity of pressure [facility] Diastolic blood 2020-12-09 16:15:00 74 mm[Hg] Unive rsity of pressure [facility] Heart rate 2020-12-09 16:15:00 98 /min [facility] Body temperature 2020-12-09 16:15:00 36.39 Leila [facility] Respiratory rate 2020-12-09 16:15:00 18 /min [facility] Body height 2020-12-09 16:15:00 180.3 cm [facility] Body weight 2020-12-09 16:15:00 87.544 kg [facility] BMI 2020-12-09 16:15:00 26.92 kg/m2 [facility] Oxygen saturation in 2020-12-09 16:15:00 97 /min University of Arterial blood by [facility] arnel Pulse oximetry Branch Systolic blood 2020-11-25 16:22:00 80 mm[Hg] Univer sity of [facility] Diastolic blood 2020-11-25 16:22:00 56 mm[Hg] Unive rsity of pressure [facility] Heart rate 2020-11-25 16:22:00 88 /min [facility] Body temperature 2020-11-25 16:22:00 36.22 Leila [facility] Respiratory rate 2020-11-25 16:22:00 18 /min [facility] Body weight 2020-11-25 16:22:00 88.451 kg [facility] BMI 2020-11-25 16:22:00 27.20 kg/m2 [facility] Oxygen saturation in 2020-11-25 16:22:00 96 /min University of Arterial blood by [facility] Pulse oximetry Branch Systolic blood 2020-11-22 21:50:00 105 mm[Hg] Univer sity of pressure [facility] Diastolic blood 2020-11-22 21:50:00 88 mm[Hg] Unive rsity of pressure [facility] Heart rate 2020-11-22 21:50:00 77 /min [facility] Oxygen saturation in 2020-11-22 21:50:00 97 /min University of Arterial blood by [facility] Pulse oximetry Branch Respiratory rate 2020-11-22 20:19:00 20 /min [facility] Body temperature 2020-11-22 20:17:00 36.22 Leila [facility] Body weight 2020-11-21 23:04:00 86.183 kg [facility] BMI 2020-11-21 23:04:00 26.50 kg/m2 [facility] Systolic blood 2020-11-09 19:00:00 114 mm[Hg] Univer sity of [facility] Diastolic blood 2020-11-09 19:00:00 67 mm[Hg] Unive rsity of pressure [facility] Heart rate 2020-11-09 19:00:00 75 /min [facility] Respiratory rate 2020-11-09 19:00:00 19 /min Univ ersity [facility] Oxygen saturation in 2020-11-09 19:00:00 92 /min University of Arterial blood by [facility] Pulse oximetry Branch Body temperature 2020-11-09 17:53:00 36.89 Leila [facility] [place] Body weight 2020-11-09 17:53:00 90.719 kg [facility] BMI 2020-11-09 17:53:00 27.89 kg/m2 [facility]i ty [facility] Systolic blood 2020-11-09 17:19:00 65 mm[Hg] Univer sity of pressure [facility] Diastolic blood 2020-11-09 17:19:00 44 mm[Hg] Unive rsity of pressure [facility] Heart rate 2020-11-09 17:18:00 108 /min Universi ty of [facility] Body temperature 2020-11-09 17:18:00 36.5 Leila Univ ersity of [facility] Respiratory rate 2020-11-09 17:18:00 26 /min Univ ersity of [facility] Body height 2020-11-09 17:18:00 180.3 cm [facility] [place] Body weight 2020-11-09 17:18:00 91.445 kg [facility] BMI 2020-11-09 17:18:00 28.12 kg/m2 [facility] Systolic blood 2020-11-08 16:48:00 73 mm[Hg] Univer sity of pressure [facility] Diastolic blood 2020-11-08 16:48:00 46 mm[Hg] Unive rsity of pressure [facility] Heart rate 2020-11-08 16:48:00 87 /min [facility] Body temperature 2020-11-08 16:48:00 36.56 Leila Univ [facility] Body height 2020-11-08 16:48:00 180.3 cm [facility] Body weight 2020-11-08 16:48:00 91.218 kg [facility] BMI 2020-11-08 16:48:00 28.05 kg/m2 Universi ty [facility] Oxygen saturation in 2020-11-08 16:48:00 97 /min University of Arterial blood by [facility] arnel Pulse oximetry Branch Systolic blood 2020-11-02 21:56:00 94 mm[Hg] Univer sity of pressure [facility] Diastolic blood 2020-11-02 21:56:00 61 mm[Hg] Unive rsity of pressure [facility] Heart rate 2020-11-02 21:56:00 62 /min [facility] [place] Body temperature 2020-11-02 21:56:00 37.28 Leila [facility] Respiratory rate 2020-11-02 21:56:00 18 /min [facility] Body height 2020-11-02 21:56:00 180.3 cm [facility] [place] Body weight 2020-11-02 21:56:00 86.183 kg [facility] BMI 2020-11-02 21:56:00 26.50 kg/m2 [facility] [place] Oxygen saturation in 2020-11-02 21:56:00 95 /min University of Arterial blood by [facility] Pulse oximetry Branch Systolic blood 2020-10-05 18:00:00 128 mm[Hg] Univer sity of pressure [facility] Diastolic blood 2020-10-05 18:00:00 77 mm[Hg] Unive rsity of [facility] Heart rate 2020-10-05 18:00:00 82 /min [facility] [place] Body temperature 2020-10-05 18:00:00 36.72 Leila [facility] [place] Respiratory rate 2020-10-05 18:00:00 20 /min [facility] Oxygen saturation in 2020-10-05 18:00:00 99 /min University of Arterial blood by [facility] arnel [facility] Branch Body weight 2020-10-05 10:27:00 85.872 kg [facility] BMI 2020-10-05 10:27:00 26.40 kg/m2 [facility] Systolic blood 2020-09-01 01:00:00 96 mm[Hg] Univer sity of pressure [facility] Diastolic blood 2020-09-01 01:00:00 72 mm[Hg] Unive rsity of pressure [facility] Heart rate 2020-09-01 01:00:00 80 /min [facility] Respiratory rate 2020-09-01 01:00:00 20 /min [facility] Oxygen saturation in 2020-09-01 01:00:00 97 /min University of Arterial blood by [facility] Pulse oximetry Branch Body temperature 2020-09-01 00:05:00 36.39 Leila [facility] Body height 2020-09-01 00:05:00 180.3 cm [facility] Body weight 2020-09-01 00:05:00 86.183 kg [facility] BMI 2020-09-01 00:05:00 26.50 kg/m2 [facility] Systolic blood 2020-08-20 21:00:00 116 mm[Hg] Univer sity of pressure [facility] Diastolic blood 2020-08-20 21:00:00 70 mm[Hg] Unive rsity of pressure [facility] Heart rate 2020-08-20 21:00:00 99 /min [facility] Body temperature 2020-08-20 21:00:00 36.72 Leila [facility] Respiratory rate 2020-08-20 21:00:00 19 /min [facility] Oxygen saturation in 2020-08-20 21:00:00 96 /min University of Arterial blood by [facility] Pulse oximetry Branch Body weight 2020-08-20 20:35:00 90.266 kg [facility] BMI 2020-08-20 20:35:00 27.75 kg/m2 [facility] Systolic blood 2020-08-09 16:53:00 102 mm[Hg] Univer sity of pressure [facility] Diastolic blood 2020-08-09 16:53:00 69 mm[Hg] Unive rsity of pressure [facility] Heart rate 2020-08-09 16:53:00 83 /min [facility] Body temperature 2020-08-09 16:53:00 36.44 Leila [facility] Respiratory rate 2020-08-09 16:53:00 20 /min [facility] Body height 2020-08-09 16:53:00 180.3 cm [facility] Body weight 2020-08-09 16:53:00 90.674 kg [facility] BMI 2020-08-09 16:53:00 27.88 kg/m2 [facility] Oxygen saturation in 2020-08-09 16:53:00 98 /min University of Arterial blood by [place] [employer] arnel [facility] Branch Systolic blood 2020-08-03 17:00:00 114 mm[Hg] Univer sity of pressure [facility] Diastolic blood 2020-08-03 17:00:00 61 mm[Hg] Unive rsity of pressure [facility] Heart rate 2020-08-03 17:00:00 74 /min [facility] Respiratory rate 2020-08-03 17:00:00 20 /min [facility] Oxygen saturation in 2020-08-03 17:00:00 97 /min [facility] of Arterial blood by [place] [employer] arnel [facility] Body temperature 2020-08-03 15:58:00 36.44 Leila [facility] Body weight 2020-08-03 15:58:00 90.719 kg [facility] BMI 2020-08-03 15:58:00 27.89 kg/m2 [facility] Systolic blood 2020-05-16 01:16:00 126 mm[Hg] Univer sity of pressure [facility] Diastolic blood 2020-05-16 01:16:00 85 mm[Hg] Unive rsity of pressure [facility] Heart rate 2020-05-16 01:16:00 71 /min [facility] Respiratory rate 2020-05-16 01:16:00 30 /min [facility] Oxygen saturation in 2020-05-16 01:16:00 95 /min [facility] of Arterial blood by [place] [employer] arnel [facility] Body temperature 2020-05-15 22:33:00 37 Leila [facility] Body height 2020-05-15 22:33:00 180.3 cm [facility] Body weight 2020-05-15 22:33:00 95.255 kg [facility] BMI 2020-05-15 22:33:00 29.29 kg/m2 [facility] Systolic blood 2020-03-22 01:00:00 101 mm[Hg] Univer sity of pressure [facility] Diastolic blood 2020-03-22 01:00:00 89 mm[Hg] Unive rsity of pressure [facility] Heart rate 2020-03-22 01:00:00 85 /min Universi ty of [facility] Respiratory rate 2020-03-22 01:00:00 28 /[facility] in 2020-03-22 01:00:00 94 /min University of Arterial blood by [facility] Pulse oximetry Branch Body temperature 2020-03-22 00:54:00 36.61 Leila Univ ersity of [facility] Body weight 2020-03-22 00:54:00 95.255 kg Universi ty of [facility] BMI 2020-03-22 00:54:00 29.29 kg/m2 Universi ty [facility] Systolic blood 2020-01-12 21:06:00 97 mm[Hg] Univer sity of [facility] Diastolic blood 2020-01-12 21:06:00 72 mm[Hg] Unive rsity of [facility] Heart rate 2020-01-12 21:06:00 90 /min Universi ty [facility] Body temperature 2020-01-12 21:06:00 36.22 Leila Univ ersity of [facility] Respiratory rate 2020-01-12 21:06:00 18 /min [facility] Body height 2020-01-12 21:06:00 180.3 cm Universi ty [facility] Body weight 2020-01-12 21:06:00 97.614 kg Universi ty [facility] BMI 2020-01-12 21:06:00 30.01 kg/m2 Universi ty [facility] Oxygen saturation in 2020-01-12 21:06:00 95 /min University of Arterial blood by [facility] Pulse oximetry Branch Procedures Procedure Date / Time Performing Clinician Source Performed XR CHEST 1 VW 2021-07-30 17:31:03 [facility] LIPASE 2021-07-30 17:20:00 [facility] TROPONIN I 2021-07-30 17:20:00 [facility] THYROID STIMULATING 2021-07-30 17:20:00 Stacie Evangelista [facility] HORMONE [facility] COMP. METABOLIC PANEL 2021-07-30 17:20:00 Stacie Evangelista [facility] ([id number]) Medical Branch CARBAMAZEPINE 2021-07-30 17:20:00 [facility] CBC WITH DIFF 2021-07-30 17:20:00 [facility] PROTHROMBIN TIME / INR 2021-07-30 17:20:00 Stacie Evangelista [facility] ACTIVATED PARTIAL 2021-07-30 17:20:00 Stacie Evangelista [facility] THRMPLAS [facility] N-TERMINAL PRO-BNP 2021-07-30 17:20:00 Stacie Evangelista [facility] SARS-COV-2 COVID-19 2021-05-24 20:15:00 Doctor Unassigned, [facility] VACCINE,0.5ML,IM [facility] ([facility] CBC WITH DIFF 2020-12-09 16:54:00 [facility] GLYCOSYLATED HEMOGLOBIN 2020-12-09 16:54:00 Isidoro Gentile [facility] (A1C) [facility] POCT GLUCOSE (AUTOMATED) 2020-11-22 20:58:00 Orly Burnett [facility] POCT GLUCOSE (AUTOMATED) 2020-11-22 16:27:00 Orly Burnett [facility] POCT GLUCOSE (AUTOMATED) 2020-11-22 12:38:00 Orly Burnett [facility] CORTISOL AM 2020-11-22 08:20:00 Bebeto [facility] BASIC METABOLIC PANEL 2020-11-22 08:20:00 Bebeto [facility] (NA, K, CL, CO2, GLUCOSE, Medica l Branch BUN, CREATININE, CA) CBC WITH DIFF 2020-11-22 08:20:00 Bebeto [facility] XR CHEST 1 VW 2020-11-22 02:39[facility] 2020-11-22 01:06:00 Jae Rocha [facility] ADC / LCC - DRUG SCREEN 2020-11-22 01:06:00 Jae Rocha [facility] BLOOD CULTURE SCREEN 2020-11-22 00:14:00 Jae Rocha [facility] BLOOD CULTURE SCREEN 2020-11-21 23:57:00 Jae Rocha [facility] COVID-19 (ID NOW RAPID 2020-11-21 23:44:00 Jae Rocha [facility] TESTING) [facility] SALICYLATE 2020-11-21 23:43:00 Jae Rocha [facility] FREE T4 2020-11-21 23:28:00 Jae Rocha [facility] HEPATIC FUNCTION PANEL 2020-11-21 23:28:00 Jae Rocha [facility] ([id number]) (ALB,T.PRO,BILI [facility] T,BU/BC,ALT,AST,ALK PHOS) AC PANEL 21 + LACTIC ACID 2020-11-21 23:28:00 [facility] CREATINE KINASE 2020-11-21 23:19:00 Jae Rocha [facility] LIPASE 2020-11-21 23:19:00 Jae Rocha [facility] MAGNESIUM 2020-11-21 23:19:00 Jae Rocha [facility] TROPONIN I 2020-11-21 23:19:00 Jae Rocha [facility] BASIC METABOLIC PANEL 2020-11-21 23:19:00 Jae Rocha [facility] (NA, K, CL, CO2, GLUCOSE, Medica l Branch BUN, CREATININE, CA) ETHANOL 2020-11-21 23:19:00 Jae Rocha [facility] CBC WITH DIFF 2020-11-21 23:19:00 Jae Rocha [facility] PROTHROMBIN TIME / INR 2020-11-21 23:19:00 Jae Rocha [facility] ACTIVATED PARTIAL 2020-11-21 23:19:00 Jae Rocha [facility] N-TERMINAL PRO-BNP 2020-11-21 23:19:00 Jae Rocha [facility] HB ECG ROUTINE & RHYTHM 2020-11-21 23:18:30 Jae Rocha [facility] NOTICE OF PRIVACY 2020-11-21 22:59:41 Doctor Unapearl, [facility] PRACTICES [facility]REFUSAL FOR 2020-11-21 22:57:53 Doctor Braden, [facility] DIAGNOSIS AND TREATMENT [facility] COVID-19 (ID NOW RAPID 2020-11-09 19:19:00 Emigdio Ruelas [facility] TESTING) Medical Branch XR CHEST 1 VW 2020-11-09 18:43:51 Emigdio Ruelas [facility] TROPONIN I 2020-11-09 18:06:00 Emigdio Ruelas [facility] COMP. METABOLIC PANEL 2020-11-09 18:06:00 Emigdio Ruelas [facility] ([id number]) [facility] CBC WITH DIFF 2020-11-09 18:06:00 Emigdio Ruelas [facility] N-TERMINAL PRO-BNP 2020-11-09 18:06:00 Emigdio Ruelas [facility] CONSENT/REFUSAL FOR 2020-11-09 17:44:56 Doctor Braden [facility] DIAGNOSIS AND TREAT[facility] POCT GLUCOSE (AUTOMATED) 2020-10-05 18:07:00 [facility] AMMONIA, PLASMA 2020-10-05 16:37:00 Yunior Odell [facility] POCT GLUCOSE (AUTOMATED) 2020-10-05 13:57:00 [facility] BASIC METABOLIC PANEL 2020-10-05 10:32:00 Bebeto [facility] (NA, K, CL, CO2, GLUCOSE, Medica l Branch BUN, CREATININE, CA) CBC WITH DIFF 2020-10-05 10:32:00 [facility] - [facility] S[facility]EN 2020-10-04 23:36:00 [facility] POCT GLUCOSE (AUTOMATED) 2020-10-04 22:50:00 [facility] POCT GLUCOSE (AUTOMATED) 2020-10-04 18:28:00 [facility] POCT GLUCOSE (AUTOMATED) 2020-10-04 13:43:00 [facility] BASIC METABOLIC PANEL 2020-10-04 11:42:00 [facility] (NA, K, CL, CO2, GLUCOSE, Medica l Branch BUN, CREATININE, CA) CBC WITH DIFF 2020-10-04 11:42:00 [facility] XR CHEST 1 VW 2020-10-04 03:33:00 Santos Blanchard [facility] URINALYSIS 2020-10-04 01:13:00 Santos Blanchard [facility] COVID-19 (ID NOW RAPID 2020-10-04 00:43:00 Santos Blanchard [facility] TESTING) [facility] MAGNESIUM 2020-10-03 23:52:00 Santos Blanchard Margarita [facility] TROPONIN I 2020-10-03 23:52:00 Santos Blanchard [facility] COMP. METABOLIC PANEL 2020-10-03 23:52:00 Santos Blanchard [facility] ([id number]) [facility] ETHANOL 2020-10-03 23:52:00 [facility] WITH DIFF 2020-10-03 23:52:00 Santos Blanchard Margarita [facility] CT HEAD WO CONTRAST 2020-10-03 23:27:21 Santos Blanchard [facility] HB ECG ROUTINE & RHYTHM 2020-10-03 23:08:57 Santos Blanchard [facility] NOTICE OF PRIVACY 2020-10-03 22:55:02 Doctor Unassigned, [facility] PRACTICES [facility] CONSENT/REFUSAL FOR 2020-10-03 22:54:21 Doctor Braden, [facility] DIAGNOSIS [facility]RE[facility] CREATINE KINASE 2020-09-01 00:34:00 Aj Jae [facility] FREE T4 2020-09-01 00:34:00 Aj Jae [facility] HEPATIC FUNCTION PANEL 2020-09-01 00:34:00 Jae Rocha [facility] ([id number]) (ALB,T.PRO,BILI Medical Branch T,BU/BC,ALT,AST,ALK PHOS) BASIC METABOLIC PANEL 2020-09-01 00:34:00 Jae Rocha [facility] (NA, K, CL, CO2, GLUCOSE, Medica l Branch BUN, CREATININE, CA) SALICYLATE 2020-09-01 00:34:00 Aj [facility] ETHANOL 2020-09-01 00:34:00 Aj [facility] CBC WITH DIFF 2020-09-01 00:34:00 Aj [facility] URINALYSIS 2020-09-01 00:34:00 Aj [facility] ADC / LCC - DRUG SCREEN 2020-09-01 00:34:00 jA Jae [facility] TRIAGE [facility] CT LUNG CANCER SCREENING 2020-08-30 21:32:31 Isidoro Gentile [facility] CONSENT/REFUSAL FOR 2020-08-20 20:27:17 Doctor Braden [facility] DIAGNOSIS AND TREATMENT [facility] PNEUMOCOCCAL VACCINE, 2020-08-09 17:38:30 Isidoro Gentile [facility] 23-VALENT (PNEUMOVAX) Medical Br anch TDAP VACCINE, >11 YRS, IM 2020-08-09 17:35:06 Isidoro Gentile [facility] FLU VACC ([id number]), 6+ 2020-08-09 17:35:06 Isidoro Gentile [facility] MONTHS, IM, QUAD Medical Branch XR CHEST 1 VW 2020-08-03 16:25:10 Blayne Obrien [facility] LIPASE 2020-08-03 16:07:00 Deacon Obrienio C [facility] TROPONIN I 2020-08-03 16:07:00 Blayne Obrien [facility] COMP. METABOLIC PANEL 2020-08-03 16:07:00 Blayne Obrien [facility] ([id number]) [facility] CBC WITH DIFF 2020-08-03 16:07:00 Blayne Obrien [facility] PROTHROMBIN TIME / INR 2020-08-03 16:07:00 Blayne Obrien [facility] 2020-08-03 16:07:00 Blayne Obrien [facility] URINALYSIS 2020-05-15 23:36:00 [facility] CREATINE KINASE 2020-05-15 22:44:00 [facility] LIPASE 2020-05-15 22:44:00 Aj [facility] TROPONIN I 2020-05-15 22:44:00 Aj Jae [facility] COMP. METABOLIC PANEL 2020-05-15 22:44:00 Jae Rocha [facility] ([id number]) [facility] CBC WITH DIFF 2020-05-15 22:44:00 Aj [facility] PROTHROMBIN TIME / INR 2020-05-15 22:44:00 Jae Rocha [facility] ACTIVATED PARTIAL 2020-05-15 22:44:00 Aj Jae [facility] EKG-12 LEAD 2020-05-15 22:39:32 Aj [facility] MEDICATION CORRESPONDENCE 2020-04-03 05:01:00 Doctor Unassigned, [facility] REFERRAL- 2020-03-10 05:01:00 Doctor Unassigned, [facility] REQUEST/RESPONSE [facility] URINALYSIS 2020-01-15 14:15:00 [facility] FREE T4 2020-01-15 14:12:00 [facility] THYROID STIMULATING 2020-01-15 14:12:00 Isidoro Gentile [facility] HORMONE [facility] COMP. METABOLIC PANEL 2020-01-15 14:12:00 Isidoro Gentile [facility] ([id number]) [facility] LIPID PANEL ([id number])(TOTAL 2020-01-15 14:12:00 Isidoro Gentile [facility] CHOLESTEROL, [facility] TRIGLYCERIDES, HDL) CBC WITH DIFFERENTIAL 2020-01-15 14:12:00 Isidoro Gentile [facility] GLYCOSYLATED HEMOGLOBIN 2020-01-15 14:12:00 Isidoro Gentile [facility] (A1C) [facility] FREE T3 2020-01-15 14:12:00 [facility]oro [facility] ASSIGNMENT OF BENEFITS 2020-01-15 13:57:35 Doctor Unassigned, Un [facility] Encounters Start End Encounter Admission Attending Care Care Encounter Source Date/Time Date/Time Type Type Clinicians Facility Department ID 2021-07-09 Emergency [facility] [id number] Univers 06:11:16 ity of [facility] 2021-07-09 Emergency [facility] [id number] Univers 02:50:36 ity of [facility] 2021-07-08 Emergency [facility] [id number] Univers 19:31:11 ity [facility] 2021-07-08 Emergency [facility] [id number] Univers 10:55:04 ity of [facility] 2021-07-08 Emergency [facility] [id number] Univers 07:44:33 ity [facility] 2021-07-07 Emergency [facility] [id number] Univers 16:10:59 ity of [facility] 2021-07-07 Emergency [facility] [id number] Univers 06:30[facility] 2021-08-09 2021-08-09 Refill Luana WIDEL 1.2.840.114 [id number] Univers 00:00:00 00:00:00 Isidoro FORRESTER 350.1.13.10 i ty vic [place] 4.2.7.2.686 Rainer dawson PROFESSIO [phone] Fl dical NAL [address] BUILDING 2021-07-30 2021-07-30 Emergency X [facility] ERT [id number] Univers 11:11:00 13:07:00 STACIE [facility] 2021-07-30 2021-07-30 Emergency [facility] 1.2.245.234 [id number] Univers 11:11:00 13:07:00 Stacie FORRESTER 350.1.13.10 [place] [phone] [facility] [address] [place] 2021-07-03 2021-07-03 Outpatient R DE [facility] [id number] Univers 15:00:00 15:00:00 ELIZA [id number] [facility] 2021-06-29 2021-06-[address] [facility] .2.840.114 [id number] Univers 00:00:00 00:00:00 Isidoro Forrester 350.1.13.10 [place] [phone] Fl dical nal [address] [place] [address] 2021-06-13 2021-06-13 [facility] [id number] 85P-20 Univers 15:40:00 15:40:00 ISIDORO [id number] [facility] 2021-06-13 2021-06-13 [facility] [id number] Univers 15:40:00 15:40:00 ISIDORO [facility] 2021-06-13 2021-06-[address] [facility] .2.840.114 [id number] Univers 00:00:00 00:00:00 Isidoro Forrester 350.1.13.10 [place] [phone] Fl dical nal 044 [facility] 2021-05-24 2021-05-24 [facility] [id number] Univers 15:20:00 15:13:44 MARCIO [facility] 2021-05-24 2021-05-24 Imm/Inj Nurse, Adc Pob Immunization [facility] 1.2.840.114 [id number] Univers 15:12:58 15:13:44 Visit Marcio Edwards 350.1.13 .10 [place] [phone] [facility] 421 [facility] 2021-05-24 2021-05-[address] [facility] 1.2.840.114 [id number] Univers 00:00:00 00:00:00 Isidoro Forrester 350.1.13.10 [place] [phone] [facility] 044 [facility] 2021-05-06 2021-05-[address] [facility] 1.2.840.114 [id number] Univers 00:00:00 00:00:00 Isidoro Forrester 350.1.13.10 [place] [phone] [facility] 044 [facility] 2021-04-24 2021-04-24 [facility] [id number] -[id number] Univers 13:00:00 13:00:00 SENDIL [id number] [facility] 2021-04-24 2021-04-24 [facility] [id number] Univers 13:00:00 13:00:00 SENDIL [facility] 2021-03-23 2021-03-23 [facility] 1.2.840.114 [id number] Univers 00:00:00 00:00:00 Isidoro Forrester 350.1.13.10 [place] [phone] Fl dic[address] 2021-03-17 2021-03-17 [facility] [id number] 85P-20 Univers 13:00:00 13:00:00 ISIDORO [id number] [facility] 2021-03-17 2021-03-17 [facility] [id number] Univers 13:00:00 13:00:00 ISIDORO [facility] 2021-03-10 2021-03-10 [facility] 1.2.840.114 [id number] Univers 13:20:42 14:52:34 Visit Isidoro Forrester 350.1.13.10 [place] [phone] Fl dical nal 044 [facility] 2021-03-10 2021-03-10 Outpatient [facility] [id number] 85P-20 Univers 13:40:00 13:40:00 ISIDORO [id number] [facility] 2021-03-10 2021-03-10 Outpatient R [facility]ONIRICKFABRICIOBEN[facility]. [facility] [id number] Univers 13:40:00 13:40:00 ISIDORO [facility] 2021-02-24 2021-02-24 [facility] 1.2.840.114 [id number] Univers 00:00:00 00:00:00 Isidoro Forrester 350.1.13.10 [place] [phone] Fl dical nal [address] [place] [address] 2021-02-01 2021-02-01 Outpatient [facility] [id number] 85P-20 Univers 13:00:00 13:00:00 ISIDORO [id number] [facility] 2021-02-01 2021-02-01 Outpatient [facility] [id number] Univers 13:00:00 13:00:00 ISIDORO [facility] 2021-01-26 2021-01-26 Outpatient [facility] [id number] 85P-20 Univers 13:00:00 13:00:00 ISIDORO [id number] [facility] 2021-01-26 2021-01-26 Outpatient [facility] [id number] Univers 13:00:00 13:00:00 ISIDORO [facility] 2021-01-25 2021-01-25 Outpatient R LUANA [facility] [id number] 85P-20 Univers 10:40:00 10:40:00 ISIDORO [id number] [facility] 2021-01-25 2021-01-25 [facility] [id number] Univers 10:40:00 10:40:00 ISIDORO [facility] 2021-01-06 2021-01-06 Outpatient [facility] [id number] 85P-20 Univers 11:20:00 11:20:00 ISIDORO [id number] [facility] 2021-01-02 2021-01-02 [facility] 1.2.840.114 [id number] Univers 00:00:00 00:00:00 Isidoro Forrester 350.1.13.10 [place] [phone] Fl dical nal 231 [facility] 2020-12-23 2020-12-23 Outpatient [facility] [id number] 85P-20 Univers 16:20:00 16:20:00 ISIDORO [id number] [facility] 2020-12-09 2020-12-09 Technical Recruiter 2, Adc Lab [facility] 1.2.840.114 [id number] Univers 11:49:13 12:04:13 Visit Isidoro Gentile 350.1.13.10 [place]y [place] [phone] Fl dical nal 353 [facility] 2020-12-09 2020-12-09 Office [facility] 1.2.840.114 [id number] Univers 10:46:37 11:56:32 Visit Isidoro Forrester 350.1.13.10 [place] [phone] Fl dical nal 044 [facility] 2020-12-09 2020-12-09 Out[facility] [id number] 85P-20 Univers 11:00:00 11:00:00 ISIDORO [id number] [facility] 2020-12-09 2020-12-09 Outpatient [facility] [id number] Univers 11:00:00 11:00:00 ISIDORO raeann [facility] 2020-12-02 2020-12-02 Refill [facility] 1.2.840.114 [id number] Univers 00:00:00 00:00:00 Isidoro Forrester 350.1.13.10 [place] [phone] [address] 2020-11-28 2020-11-28 Outpatient [facility] [id number] Univers 14:00:00 14:00:00 SENDIL [id number] [facility] 2020-11-28 2020-11-[address] [facility] 1.2.840.114 [id number] Univers 00:00:00 00:00:00 Isidoro Forrester 350.1.13.10 [place] [phone] [address] 2020-11-26 2020-11-[address] [facility] 1.2.840.114 [id number] Univers 00:00:00 00:00:00 Isidoro [facility] 350.1.13.10 it y of [place] 4.2.7.2.686 [place] Professio [phone] [address] Office Building One 2020-11-25 2020-11-[address] [facility] 1.2.840.114 [id number] Univers 11:09:04 12:19:04 Visit Isidoro Forrester 350.1.13.10 [place] [phone] [address] 2020-11-25 2020-11-25 Outpatient [facility] [id number] 85P-20 Univers 11:20:00 11:20:00 ISIDORO [id number] [facility] 2020-11-25 2020-11-25 Outpatient R LUANA [facility] [id number] Univers 11:20:00 11:20:00 ISIDORO wood of [facility] 2020-11-23 2020-11-23 Transition Timo Garciaalfred 1.2.840.114 [id number] Univers 00:00:00 00:00:00 of Eloisa Akhtar 350.1.13.10 it y of [place] [phone] [facility] [address] 2020-11-21 2020-11-22 Emergency Jae Rocha [facility] 1.2.840. 114 [id number] Univers 18:05:00 17:44:00 Orly Burnett 350.1.13.10 ity of [place] Tate 4.2.7.2.686 [facility] [phone] [facility] [address] [place] 2020-11-16 2020-11-16 Outpatient MANGIN, [facility] [id number] [place] 00:00:00 00:00:00 DAVID [address] i 2020-11-16 2020-11-16 Outpatient MANGIN, [facility] [id number] [address] [place] 00:00:00 00:00:00 DAVID [address] i 2020-11-09 2020-11-09 Emergency [facility] 1.2.840.114 [id number] Univers 11:54:00 14:57:00 Emigdio Forrester 350.1.13.10 ity of [place] [phone] [facility] [address] [place] 2020-11-09 2020-11-09 Office [facility] 1.2.840.114 [id number] Univers 11:04:56 11:41:17 Visit Isidoro Forrester 350.1.13.10 i ty of [place] [phone] Fl dical nal 0[address] [facility] 2020-11-09 2020-11-09 Out[facility] [id number] 85P-20 Univers 11:20:00 11:20:00 ISIDORO [id number] [facility] 2020-11-09 2020-11-09 Out[facility] [id number] Univers 11:20:00 11:20:00 ISIDORO [facility] 2020-11-08 2020-11-08 [facility] 1.2.840.114 [id number] Univers 10:40:00 11:00:00 Visit Isidoro Forrester 350.1.13.10 i ty vic [place] [phone] Fl dical nal [address] [place] [address] Building 2020-11-08 2020-11-08 Out[facility] [id number] 85P-20 Univers 10:40:00 10:40:00 IISDORO [id number] [facility] 2020-11-08 2020-11-08 Outpatient [facility] [id number] Univers 10:40:00 10:40:00 ISIDORO [facility] 2020-11-02 2020-11-02 Outpatient R [facility] [id number] Univers 16:40:00 16:40:00 [id number] [facility] 2020-11-02 2020-11-02 Outpatient [facility] [id number] Univers 16:40:00 16:40:00 MARLA [facility] 2020-11-02 2020-11-02 Urgent Provider, [facility] 1.2.840.114 [id number] Univers 15:49:00 16:26:17 [facility] 350.1.13. 10 ity [facility] 4.2.7.2.686 [place] Profess[place] [phone] [address] Office Building One 2020-11-01 2020-11-01 Outpatient R [facility] [id number] Univers 08:20:00 08:20:00 [id number] [facility] 2020-11-01 2020-11-01 [facility] 1.2.840.114 [id number] Univers 00:00:00 00:00:00 Isidoro Forrester 350.1.13.10 [place] [phone] Fl dical nal [address] [facility] 2020-10-26 2020-10-26 Outpatient R JONIRICKEREN, [facility] [id number] 85P-20 Univers 14:40:00 14:40:00 ISIODRO [id number] ity [facility] 2020-10-18 2020-10-18 Outpatient [facility] [id number] Univers 11:40:00 14:55:12 [facility] 2020-10-18 2020-10-18 Outpatient E[facility] [id number]-20 Univers 11:40:00 11:40:00 SHARAN [id number] [facility] 2020-10-07 2020-10-07 Transition Rafa De Jesus 1.2.840.114 [id number] Univers 00:00:00 00:00:00 of Eloisa Akhtar 350.1.13.10 i ty of [place] [phone] [facility] [address] 2020-10-03 2020-10-05 [facility] Santos Blanchard [facility] 1.2.840.1 14 [id number] Univers 17:05:00 15:38:00 Encounter Darya Tate 350.1.13.10 ity of [place] [phone] [facility] [address] 2020-09-28 2020-09-28 [facility] 1.2.840.114 [id number] Univers 00:00:00 00:00:00 Isidoro Forrester 350.1.13.10 [place] ty [place] [phone] Fl dical nal [address] [facility] 2020-09-20 2020-09-20 Outpatient R KALI [facility] [id number] 5P-20 Univers 13:00:00 13:00:00 SHARAN [id number] [facility] 2020-09-20 2020-09-20 Outpatient R KALI [facility] [id number] Univers 13:00:00 12:56:54 SHARAN ity [facility] 2020-08-31 2020-08-31 Emergency X AJ [facility] ERT [id number] Univers 18:03:00 20:11:00 JAE itraeann [facility] 2020-08-31 2020-08-31 Emergency [facility] 1.2.056.931 [id number] Univers 18:03:00 20:11:00 Jae Forrester 350.1.13.10 [place] ty [place] [phone] [address] 2020-08-30 2020-08-30 [facility] 1.2.840.114 [id number] Univers 15:21:29 23:59:00 Encounter Isidoro Forrester 350.1.13.10 [place]y [place] [phone] [address] 2020-08-30 2020-08-30 [facility] [id number] 85P-20 Univers 15:30:00 15:30:00 ISIDORO [id number] ity [facility] 2020-08-30 2020-08-30 Outpatient R [facility] [id number] Univers 00:00:00 00:00:00 ISIDORO itraeann [facility] 2020-08-24 2020-08-[address] [facility] 1.2.840.114 [id number] Univers 00:00:00 00:00:00 Isidroo Forrester 350.1.13.10 [place] [phone] Fl dical [facility] 231 [facility] 2020-08-20 2020-08-20 [facility] 1.2.840.114 [id number] Univers 14:34:00 15:24:00 Melida Forrester 350.1.13.10 ity of [place] [phone] [address] 2020-08-10 2020-08-10 Technical Recruiter Cholo, Adc Lab Main [facility] 1.2.8 40.114 [id number] Univers 13:41:13 13:56:13 Visit Isidoro Gentile 350.1.13.10 ity of [place] [phone] Fl dical nal 353 [facility] 2020-08-10 2020-08-10 Outpatient R [facility] [id number] Univers 13:45:00 13:45:00 [facility] 2020-08-10 2020-08-10 [facility] [id number] Univers 13:45:00 13:45:00 ISIDORO raeann [facility] 2020-08-09 2020-08-09 [facility] 1.2.840.114 [id number] Univers 10:41:01 11:56:25 Visit Isidoro Forrester 350.1.13.10 i ty [place] [phone] Fl dical nal 044 [facility] 2020-08-09 2020-08-09 Out[facility] [id number] 85P-20 Univers 10:40:00 10:40:00 ISIDORO [facility] 2020-08-09 2020-08-09 Outpatient [facility] [id number] Univers 10:40:00 10:40:00 ISIDORO [facility] 2020-08-03 2020-08-03 Emergency [facility] 1.2.971.901 [id number] Univers 09:55:00 11:52:00 Blayne Forrester 350.1.13.10 i ty [place] [phone] [address] 2020-05-26 2020-05-26 [facility] 1.2.840.114 [id number] Univers 00:00:00 00:00:00 Isidoro Forrester 350.1.13.10 [place] ty of [place] [phone] Fl dical nal 044 [facility] 2020-05-15 2020-05-15 Emergency [facility] 1.2.693.729 [id number] Univers 17:40:00 21:00:00 Stacie Forrester 350.1.13.10 [place]y of [place] [phone] [address] 2020-05-06 2020-05-[address] [facility] 1.2.840.114 [id number] Univers 00:00:00 00:00:00 Isidoro Forrester 350.1.13.10 [place] ty of [place] [phone] Fl dical nal [address] [place] [address] 2020-04-13 2020-04-13 Outpatient R [facility] [id number] 85P-20 Univers 13:40:00 13:40:00 ISIDORO [id number] ity [facility] 2020-04-13 2020-04-13 Outpatient R [facility] [id number] Univers 13:40:00 13:40:00 [facility] 2020-04-03 2020-04-03 Orders Doctor STELLA 1.2.840.114 [id number] Univers 00:00:00 00:00:00 Only Unassigned, KUNAL 350.1.13.10 ity of [place] [facility] 4.2.7.2.686 [place] as [phone] [address] 2020-03-21 2020-03-21 [facility] 1.2.840.114 [id number] Univers 19:50:42 20:29:00 Melida Forrester 350.1.13.10 [place]y of [place] [phone] [address] 2020-03-18 2020-03-[address] [facility] 1.2.840.114 [id number] Univers 00:00:00 00:00:00 Isidoro Forrester 350.1.13.10 i ty of [place] [phone] Fl dical nal 044 [facility] 2020-03-10 2020-03-10 Orders Doctor STELLA 1.2.840.114 [id number] Univers 00:00:00 00:00:00 Only Unassigned, KUNAL 350.1.13.10 ity of [place] [facility] 4.2.7.2.686 [place] as [phone] [address] 2020-03-01 2020-03-[address] [facility] 1.2.840.114 [id number] Univers 00:00:00 00:00:00 Isidoro Forrester 350.1.13.10 [place] ty of [place] [phone] Fl dical [facility] 044 [facility] 2020-01-28 2020-01-[address] [facility] 1.2.840.114 [id number] Univers 00:00:00 00:00:00 [facility] 350.1.13.10 it y of [place] 4.2.7.2.686 [place] Professio [phone] [facility] [address] [place] Office [address] One 2020-01-15 2020-01-15 Technical Recruiter Cholo, Mireya Lab Main [facility] 1.2.8 40.114 [id number] Univers 08:56:43 09:11:43 Visit Isidoro Gentile 350.1.13.10 ity of [place] [phone] [facility] 353 [facility] 2020-01-15 2020-01-15 Outpatient R [facility] [id number] -[id number] Univers 08:45:00 08:45:00 [id number] ity [facility] 2020-01-15 2020-01-15 [facility] [id number] Univers 08:45:00 08:45:00 ISIDORO wood [facility] 2020-01-15 2020-01-15 Orders Doctor DOUGLAS 1.2.840.114 [id number] Univers 00:00:00 00:00:00 Only Unassigned, KUNAL 350.1.13.10 ity of [place] [facility] 4.2.7.2.686 [place] as [phone] [address] 2020-01-13 2020-01-13 Outpatient R [facility] [id number] -[id number] Univers 14:00:00 14:00:00 [id number] [facility] 2020-01-12 2020-01-12 [facility] 1.2.840.114 [id number] Univers 15:30:35 16:26:43 Visit Isidoro Forrester 350.1.13.10 i ty of [place] [phone] [address] 2020-01-12 2020-01-12 [facility] [id number] 85P-20 Univers 15:40:00 15:40:00 ISIDORO [facility] 2020-01-12 2020-01-12 Outpatient R [facility] [id number] Univers 15:40:00 15:40:00 ISIDORO [facility] 2020-01-12 2020-01-12 Out[facility] [id number] Univers 15:40:00 15:40:00 ISIDORO [facility] 2020-01-05 2020-01-05 [facility] 1.2.840.114 [id number] Univers 00:00:00 00:00:00 Isidoro Forrester 350.1.13.10 i ty of [place] [phone] [facility] 044 [facility] 2019-12-02 2019-12-02 Favio Mccormick [facility] 1.2.840.114 [id number] Univers 00:00:00 00:00:00 Gil Forrester 350.1.13.10 i ty of [place] [phone] [facility] 231 [facility] Results Test Description Test Time Test Comments Results Result Comments Source THYROID STIMULATING HORMONE 2021-07-30 18:18:28 Test Item Value Reference Range Interpretation Comme nts TSH (test code = 5023494835) See_Comment [Automated message] The system which generated this result transmitted ref erence range: 0.45 - 4.70 mIU/L. T he reference range was not used to interpret this result as timbo l/abnormal. Lab Interpretation (test code = Normal 64324-8) [facility] HospitalTROPONIN [id number] 18:00:07 Test Item Value Reference Interpretation Comments Range TROPONIN I (test 0.003 ng/mL See_Comment [Automated code = 7143859684) message] The system which generated this result transmitted reference range : <=0.034. The reference range was not used to interpret this result as normal/abnormal . NIDIA (test code = Reference (Normal) NIDIA) Range (defined by the 99th percentile reference limit): <= 0.034 ng/mL Note: Cardiac troponin begins to rise 3-4 hours after the onset of ischemia. Repeat in 4-6 hours if the sample was drawn within 3-4 hours of the onset of the symptom and found normal. Diagnosis of myocardial injury is made with acute changes in cTn concentrations with at least one serial sample above the 99th percentile upper reference limit (URL), taken together with the patient's clinical presentation. Biotin has been reported to cause a negative bias, interpret results relative to patient's use of biotin. Lab Interpretation Normal (test code = 34119-9) [facility] HospitalN-TERMINAL [id number] 17:56:46 Test Item Value Reference Range Interpretation Comments NT-proBNP (test code 228 pg/mL See_Comment H [Autom ated = [id number]) message] The system which generated this result transmitted reference range : <=125. The reference range was not used to interpret this result as normal/abnormal . NIDIA (test code = NIDIA) Biotin has been reported to cause a negative bias, interpret results relative to patient's use of biotin. Lab Interpretation Abnormal (test code = 14153-2) [facility] HospitalCARBAMAZEPINE2021-11-21 17:50:44 Test Item Value Reference Range Interpretation Comments CARBAMAZE (test code = 6.8 ug/mL 4.0-12.0 6622662643) NIDIA (test code = NIDIA) Toxic Range: ? Greater than 12 ug/mL Lab Interpretation (test Normal code = 80353-0) [facility] HospitalCOMP. METABOLIC PANEL (33406)2021-07-30 17:48:23 Test Item Value Reference Range Interpretation Comments NA (test code = 135 mmol/L 135-145 7872867274) K (test code = 3.5 mmol/L 3.5-5.0 9081250882) CL (test code = 105 mmol/L 98-108 8152590911) CO2 TOTAL (test code = 25 mmol/L 23-31 3276695412) AGAP (test code = 2-16 3103329165) BUN (test code = 11 mg/dL 7-23 6390743740) GLUCOSE (test code = 143 mg/dL 70-110 H 9419450368) CREATININE (test code = 0.87 mg/dL 0.60-1.25 4904457755) TOTAL BILI (test code = 0.2 mg/dL 0.1-1.0 4981901236) CALCIUM (test code = 8.2 mg/dL 8.6-10.6 L 6112997790) T PROTEIN (test code = 5.7 g/dL 6.3-8.2 L 6140216708) ALBUMIN (test code = 3.2 g/dL 3.5-5.0 L 4197124525) ALK PHOS (test code = 92 U/L 34-122 2424708096) ALTv (test code = 12 U/L 5-50 1742-6) AST(SGOT) (test code = 15 U/L 13-40 1046584963) eGFR (test code = mL/min/1.73m2 9870515714) NIDIA (test code = NIDIA) Association of [...] tests). Lab Interpretation Abnormal (test code = 36067-7) [facility] Test Item Value Reference Range Interpretation Comments LIPASE (test code = 6537025482) 67 U/L 0-220 Lab Interpretation (test code = Normal 81809-6) [facility] [id number] 17:45:02 Test Item Value Reference Range Interpretation Comments APTT Patient (test See_Comment [Automat ed code = 3173-2) message] The system which generated this result transmitted reference range : 23 - 38 Seconds . The reference range was not used to interpr et this result as normal/abnormal . NDIIA (test code = NIDIA) The [facility] patient population mean normal value for aPTT is 30 seconds. Lab Interpretation Normal (test code = 97119-7) [facility] HospitalPROTHROMBIN TIME / [id number] 17:43:06 Test Item Value Reference Range Interpretation Comments [...] tions. Lab Interpretation (test Normal code = 37598-2) General acute hospital WITH [id number] 17:35:02 Test Item Value Reference Range Interpretation Comments WBC (test code = See_Comment [Automated 6690-2) message] The sy stem which generated this result transmitted reference range : 4.20 - 10.70 10*3/?L. The reference range was not used to interpret this result as normal/abnormal . RBC (test code = See_Comment L [Automated 789-8) message] The sy stem which generated this result transmitted reference range : 4.26 - 5.52 10*6/?L. The reference range was not used to interpret this result as normal/abnormal . HGB (test code = 13.2 g/dL 12.2-16.4 718-7) HCT (test code = 37.2 % 38.4-49.3 L 4544-3) MCV (test code = 93.5 fL 81.7-95.6 787-2) MCH (test code = 33.2 pg 26.1-32.7 H 785-6) MCHC (test code = 35.5 g/dL 31.2-35.0 H 786-4) RDW-SD (test code = 44.5 fL 38.5-51.6 00543-7) RDW-CV (test code = 12.9 % 12.1-15.4 788-0) PLT (test code = See_Comment [Automated 777-3) message] The sy stem which generated this result transmitted reference range : 150 - 328 10*3/ ?L. The reference r tin was not used to interpret this result as normal/abnormal . MPV (test code = 10.0 fL 9.8-13.0 19261-1) NRBC/100 WBC (test See_Comment [Automat ed code = 9884768403) message] The system which generated this result transmitted reference range : 0.0 - 10.0 /100 WBCs. The refer ence range was not u sed to interpret th is result as normal/abnormal . NRBC x10^3 (test code <0.01 See_Comment [Auto mated = 1147979925) message] The s ystem which generated this result transmitted reference range : 10*3/?L. The reference range was not used to interpret this result as normal/abnormal . GRAN MAT (NEUT) % 80.2 % (test code = 770-8) IMM GRAN % (test code 0.70 % = 4748664469) LYMPH % (test code = 10.4 % 736-9) MONO % (test code = 7.5 % 5905-5) EOS % (test code = 0.6 % 713-8) BASO % (test code = 0.6 % 706-2) GRAN MAT x10^3(ANC) 7.84 10*3/uL 1.99-6.95 H (test code = 6175874972) IMM GRAN x10^3 (test 0.07 10*3/uL 0.00-0.06 H code = 3195261247) LYMPH x10^3 (test code 1.02 10*3/uL 1.09-3.23 L = 731-0) MONO x10^3 (test code 0.73 10*3/uL 0.36-1.02 = 742-7) EOS x10^3 (test code = 0.06 10*3/uL 0.06-0.53 711-2) BASO x10^3 (test code 0.06 10*3/uL 0.01-0.09 = 704-7) Lab Interpretation Abnormal (test code = 53747-0) [facility] HospitalGLYCOSYLATED HEMOGLOBIN (A1C)2020-12-09 18:09:28 Test Item Value Reference Range Interpretation Comments HGB A1C (test code = 7.0 % 4.0-6.0 H 4548-4) NIDIA (test code = NIDIA) %A1C (NGSP) Interpretation (ADA)4.8-5.6 ? ? Normal or (Non-Diabetic Range)5.7-6.4 ? ? Increased Risk (Pre-Diabetic)>6.5 ?Diabetes Indicated Lab Interpretation Abnormal (test code = 93677-4) [facility] HospitalCB WITH [id number] 17:23:10 Test Item Value Reference Range Interpretation Comments WBC (test code = See_Comment [Automated message] 6690-2) The system [employer] generated this result transmitted ref erence range: 4.20 - 1 0.70 10*3/?L. The re ference range was not u sed to interpret this result as normal/abnor mal. RBC (test code = See_Comment [Automated message] 789-8) The system [employer] generated this result transmitted ref erence range: [...] RDW-SD (test code 43.0 fL 38.5-51.6 = 60759-0) RDW-CV (test code 13.2 % 12.1-15.4 = 788-0) PLT (test code = See_Comment [Automated message] 777-3) The system [employer] generated this result transmitted ref erence range: 150 - 32 8 10*3/?L. The re ference range was not u sed to interpret this result as normal/abnor mal. MPV (test code = 10.8 fL 9.8-13.0 84914-7) NRBC/100 WBC (test See_Comment [Automat ed message] code = 3089994104) The syste [employer] which generated this result transmitted ref erence range: 0.0 - 10 .0 /100 WBCs. The refer ence range was not u sed to interpret this result as normal/abnor mal. NRBC x10^3 (test <0.01 See_Comment [Automated message] code = 0144756516) The syste m which generated this result transmitted ref erence range: 10*3/?L. The reference range was not used to interpr et this result as normal/abnormal . GRAN MAT (NEUT) % 67.4 % (test code = 770-8) IMM GRAN % (test 0.60 % code = 2469213829) LYMPH % (test code 22.5 % = 736-9) MONO % (test code 7.0 % = 5905-5) EOS % (test code = 1.6 % 713-8) BASO % (test code 0.9 % = 706-2) GRAN MAT 5.52 10*3/uL 1.99-6.95 x10^3(ANC) (test code = 2768955215) IMM GRAN x10^3 0.05 10*3/uL 0.00-0.06 (test code = 6051905920) LYMPH x10^3 (test 1.84 10*3/uL 1.09-3.23 code = 731-0) MONO x10^3 (test 0.57 10*3/uL 0.36-1.02 code = 742-7) EOS x10^3 (test 0.13 10*3/uL 0.06-0.53 code = 711-2) BASO x10^3 (test 0.07 10*3/uL 0.01-0.09 code = 704-7) [facility] GLUCOSE (AUTOMATED)2020-11-22 21:02:14 Test Item Value Reference Range Interpretation Comments POCT GLU (test code = 1255800863) 212 mg/dL 70-110 H Lab Interpretation (test code = Abnormal 29629-6) [facility] GLUCOSE (AUTOMATED)2020-11-22 16:32:17 Test Item Value Reference Range Interpretation Comments POCT GLU (test code = 1285122415) 135 mg/dL 70-110 H Lab Interpretation (test code = Abnormal 16584-1) [facility] HospitalCORTISOL [id number] 16:31:22 Test Item Value Reference Range Interpretation Comments MARCELLE AM (test code = 5.5 ug/dL 4.5-23.0 3540293860) NIDIA (test code = NIDIA) Biotin has been reported to cause a positive bias, interpret results relative to patient's use of biotin. Lab Interpretation (test Normal code = 58954-9) [facility] GLUCOSE (AUTOMATED)2020-11-22 12:47:57 Test Item Value Reference Range Interpretation Comments POCT GLU (test code = 3652533346) 113 mg/dL 70-110 H Lab Interpretation (test code = Abnormal 18576-4) [facility] Metabolic Panel (NA, K, CL, CO2, GLUCOSE, BUN, CREATININE, CA)2020-11-22 09:25:33 Test Item Value Reference Range Interpretation Comments NA (test code = 136 mmol/L 135-145 9056028979) K (test code = 3.8 mmol/L 3.5-5.0 8306505017) CL (test code = 105 mmol/L 98-108 6089855109) CO2 TOTAL (test code = 26 mmol/L 23-31 8297050236) AGAP (test code = 2-16 3746681940) BUN (test code = 16 mg/dL 7-23 9636047358) GLUCOSE (test code = 116 mg/dL 70-110 H 8295439843) CREATININE (test code = 1.02 mg/dL 0.60-1.25 6684555499) CALCIUM (test code = 8.4 mg/dL 8.6-10.6 L 3197039974) eGFR Calculation mL/min/1.73m2 (Non-) (test code = 8976104069) eGFR Calculation mL/min/1.73m2 () (test code = 3113421150) NIDIA (test code = NIDIA) Association of [...] tests). Lab Interpretation Abnormal (test code = 98193-3) General acute hospital with [id number] 09:15:12 Test Item Value Reference Range Interpretation Comments WBC (test code = See_Comment [Automated 7190-2) message] The sy stem which generated this [...] RDW-SD (test code = 42.3 fL 38.5-51.6 70056-7) RDW-CV (test code = 12.9 % 12.1-15.4 788-0) PLT (test code = See_Comment [Automated 777-3) message] The sy stem which generated this result transmitted reference range : 150 - 328 10*3/ ?L. The reference r tin was not used to interpret this result as normal/abnormal . MPV (test code = 10.8 fL 9.8-13.0 50703-7) NRBC/100 WBC (test See_Comment [Automat ed code = 3871158377) message] The system which generated this result transmitted reference range : 0.0 - 10.0 /100 WBCs. The refer ence range was not u sed to interpret th is result as normal/abnormal . NRBC x10^3 (test code <0.01 See_Comment [Auto mated = 5848060590) message] The s ystem which generated this result transmitted reference range : 10*3/?L. The reference range was not used to interpret this result as normal/abnormal . GRAN MAT (NEUT) % 67.1 % (test code = 770-8) IMM GRAN % (test code 0.80 % = 8198497089) LYMPH % (test code = 21.4 % 736-9) MONO % (test code = 8.8 % 5905-5) EOS % (test code = 1.0 % 713-8) BASO % (test code = 0.9 % 706-2) GRAN MAT x10^3(ANC) 6.13 10*3/uL 1.99-6.95 (test code = 5907241587) IMM GRAN x10^3 (test 0.07 10*3/uL 0.00-0.06 H code = 6705127101) LYMPH x10^3 (test code 1.95 10*3/uL 1.09-3.23 = 731-0) MONO x10^3 (test code 0.80 10*3/uL 0.36-1.02 = 742-7) EOS x10^3 (test code = 0.09 10*3/uL 0.06-0.53 711-2) BASO x10^3 (test code 0.08 10*3/uL 0.01-0.09 = 704-7) Lab Interpretation Abnormal (test code = 91839-8) [facility] HospitalXR CHEST 1 [id number] 05:13:38 No acute intrathoracic abnormality. Preliminary Report [...] reviewed this study and agree withthe above report.[facility] / [facility] - DRUG SCREEN [id number] 01:26:42 Test Item Value Reference Range Interpretation Comments BENZO U (test code = Negative Negative 0938256465) SIDDHARTHA U (test code = Negative Negative 0271230627) AMPHET (test code = Negative Negative 1600077749) THC (test code = Negative Negative 8476515917) METHADONE (test code = Negative Negative 5039046281) Meth U (test code = Negative Negative 8825846726) OPIATES (test code = Negative Negative 9709011815) Cocaine Metabolite (test Negative Negative code = 1636874491) PROPOXY (test code = Negative Negative 3373222908) Tric U (test code = Negative Negative 4022058046) PCP (test code = Negative Negative 5903911391) OXYCOD (test code = Negative Negative 5392907012) NIDIA (test code = NIDIA) Urine Drug [...] testing). Lab Interpretation (test Normal code = 34097-2) [facility] HospitalUrinalysis2021-03-16 01:19:53 Test Item Value Reference Range Interpretation Comments APPEARANCE (test code = Clear Clear 5481447150) COLOR (test code = Yellow Yellow 5952406390) PH (test code = 4.8-8.0 5713410082) SP GRAVITY (test code = 1.003-1.030 0443524166) GLU U QUAL (test code = Normal Normal 6439056078) BLOOD (test code = Negative Negative 2505298532) KETONES (test code = Negative Negative 0501833728) PROTEIN (test code = Negative Negative 2887-8) UROBILIN (test code = Normal Normal 1744602115) BILIRUBIN (test code = Negative Negative 6400674778) NITRITE (test code = Negative Negative 1250107243) LEUK RICK (test code = Negative Negative 1849728287) RBC/HPF (test code = See_Comment [Autom ated message] 7103095625) The system [employer] generated this result transmitted ref erence range: 0 - 3 HP F. The reference range was not used to int erpret this result as normal/abnormal . WBC/HPF (test code = See_Comment [Autom ated message] 0706596170) The system [employer] generated this result transmitted ref erence range: 0 - 5 HP F. The reference range was not used to int erpret this result as normal/abnormal . BACTERIA (test code = Negative Negative 2972249156) MUCOUS (test code = Slight Negative LPF A 5183270635) SQ EPITH (test code = <1 HPF 3594297313) HYAL CAST (test code = See_Comment H [Aut omated message] 4043393363) The system [employer] generated this result transmitted ref erence range: <=2 LPF. The reference range was not used to int erpret this result as normal/abnormal . Lab Interpretation (test Abnormal code = 64046-2) [facility] HospitalSALICYLATE2021-03-16 01:04:56 Test Item Value Reference Range Interpretation Comments SALICYLATE (test code <10 mg/L = 4267191443) NIDIA (test code = NIDIA) Therapeutic Range: ? Analgesic and Antipyretic Use ? 20-100 mg/L ? ? Anti-Inflammatory Use ? 100-250 mg/L Toxic Range: ? Greater than 300 mg/L [facility] HospitalACETAMINOPHEN2021-03-16 01:04:50 Test Item Value Reference Range Interpretation Comments ACETAMINOP (test code = <10.0 10.0-30.0 L 5501116939) NIDIA (test code = NIDIA) Toxic: Greater than 200 ug/mL @ 4 hour post ingestion or greater than 50 ug/mL @ 12 hour post ingestion Lab Interpretation (test Abnormal code = 42982-2) [facility] HospitalCB with [id number] 00:37:44 Test Item Value Reference Range Interpretation Comments WBC (test code = See_Comment H [Automated 1790-2) message] The sy stem which generated this result transmitted reference range : 4.20 - 10.70 10*3/?L. The reference range was not used to interpret this result as normal/abnormal . RBC (test code = See_Comment [Automated 165-8) message] The sy stem which generated this [...] RDW-SD (test code = 41.8 fL 38.5-51.6 02517-1) RDW-CV (test code = 13.0 % 12.1-15.4 788-0) PLT (test code = See_Comment [Automated 777-3) message] The sy stem which generated this result transmitted reference range : 150 - 328 10*3/ ?L. The reference r tin was not used to interpret this result as normal/abnormal . MPV (test code = 10.6 fL 9.8-13.0 63073-6) NRBC/100 WBC (test See_Comment [Automat ed code = 4871019154) message] The system which generated this result transmitted reference range : 0.0 - 10.0 /100 WBCs. The refer ence range was not u sed to interpret th is result as normal/abnormal . NRBC x10^3 (test code <0.01 See_Comment [Auto mated = 2607651097) message] The s ystem which generated this result transmitted reference range : 10*3/?L. The reference range was not used to interpret this result as normal/abnormal . GRAN MAT (NEUT) % 60.6 % (test code = 770-8) IMM GRAN % (test code 0.70 % = 0575325624) LYMPH % (test code = 30.2 % 736-9) MONO % (test code = 6.7 % 5905-5) EOS % (test code = 1.1 % 713-8) BASO % (test code = 0.7 % 706-2) GRAN MAT x10^3(ANC) 9.12 10*3/uL 1.99-6.95 H (test code = 3460754603) IMM GRAN x10^3 (test 0.10 10*3/uL 0.00-0.06 H code = 9843667988) LYMPH x10^3 (test code 4.54 10*3/uL 1.09-3.23 H = 731-0) MONO x10^3 (test code 1.00 10*3/uL 0.36-1.02 = 742-7) EOS x10^3 (test code = 0.16 10*3/uL 0.06-0.53 711-2) BASO x10^3 (test code 0.10 10*3/uL 0.01-0.09 H = 704-7) Lab Interpretation Abnormal (test code = 91474-2) [facility] [id number] 00:31:05 Test Item Value Reference Range Interpretation Comments FREE T4 (test code = See_Comment [Autom ated message] 6777530859) The system [employer] generated this result transmitted ref erence range: 0.78 - 2 .20 ng/dL:. The ref erence range was not u sed to interpret this result as normal/abnor mal. Lab Interpretation (test Normal code = 11090-0) [facility] HospitalETHANOL2021-03-16 00:21:56 Test Item Value Reference Range Interpretation Comments ALCOHOL (test code = <10 mg/dL 7378661328) NIDIA (test code = NIDIA) <10 Igdsqvqk94-042 Toxic>100 Depression of MASTIC SPRAYER>400 Fatalities Reported [facility] HospitalHepatic Function Panel (ALB, T.PRO, BILI T, BU/BC, ALT, AST, ALK PHOS)2020-11-22 00:15:04 Test Item Value Reference Range Interpretation Comments TOTAL BILI (test code = 0235954828) 0.7 mg/dL 0.1-1.1 BILI UNCON (test code = 2600315720) 0.6 mg/dL 0.1-1.1 BILI CONJ (test code = 6206236829) 0.0 mg/dL 0.0-0.3 T PROTEIN (test code = 3034749587) 6.5 g/dL 6.3-8.2 ALBUMIN (test code = 8741600484) 3.9 g/dL 3.5-5.0 ALK PHOS (test code = 5462901294) 97 U/L 34-122 ALTv (test code = 1742-6) 17 U/L 5-50 AST(SGOT) (test code = 5026268648) 21 U/L 13-40 Lab Interpretation (test code = Normal 45419-0) [facility] HospitalCOVID-19 (ID NOW RAPID TESTING)2020-11-22 00:15:04 Test Item Value Reference Range Interpretation Comments SARS-CoV-2 Rapid ID NOW Not Detected Not Detected (test code = 31662-7) NIDIA (test code = NIDIA) ID NOW COVID-19 Assay is an isothermal nucleic acid amplification test intended for the qualitative detection of nucleic acid from SARS-CoV-2 viral RNA in nasopharyngeal (CLINICAL STAFF ANESTHESIOLOGIST) specimens. It is used under Emergency Use [...] indicated. Lab Interpretation Normal (test code = 09347-4) [facility] HospitalTroponin [id number] 23:57:59 Test Item Value Reference Range Interpretation Comments TROPONIN I (test <0.012 See_Comment [Automated code = 3880663047) message] The system which generated this result [...] ? Lab Interpretation Normal (test code = 10314-8) [facility] HospitalN-TERMINAL [id number] 23:54:56 Test Item Value Reference Range Interpretation Comments NT-proBNP (test code 114 pg/mL See_Comment [Autom ated = 9037922751) message] The system which generated this result transmitted reference range : <=125. The reference range was not used to interpret this result as normal/abnormal . NIDIA (test code = NIDIA) Biotin has been reported to cause a negative bias, interpret results relative to patient's use of biotin. Lab Interpretation Normal (test code = 84623-2) [facility] HospitalMAGNESIUM2021-03-15 23:45:59 Test Item Value Reference Range Interpretation Comments MAGNESIUM (test code = 2250237981) 1.8 mg/dL 1.7-2.4 Lab Interpretation (test code = Normal 74248-3) [facility] Metabolic Panel (NA, K, CL, CO2, GLUCOSE, BUN, CREATININE, CA)2020-11-21 23:45:39 Test Item Value Reference Range Interpretation Comments NA (test code = 134 mmol/L 135-145 L 4879680609) K (test code = 4.0 mmol/L 3.5-5.0 1586353947) CL (test code = 102 mmol/L 98-108 2484679979) CO2 TOTAL (test code = 24 mmol/L 23-31 4185857808) AGAP (test code = 2-16 9995528191) BUN (test code = 13 mg/dL 7-23 7233363328) GLUCOSE (test code = 179 mg/dL 70-110 H 5335501681) CREATININE (test code = 1.11 mg/dL 0.60-1.25 0832047851) CALCIUM (test code = 8.8 mg/dL 8.6-10.6 2132529056) eGFR Calculation mL/min/1.73m2 (Non-) (test code = 4581969903) eGFR Calculation mL/min/1.73m2 () (test code = 7706296071) NIDIA (test code = NIDIA) Association of [...] tests). Lab Interpretation Abnormal (test code = 42302-1) [facility] HospitalLipase [id number] 23:45:17 Test Item Value Reference Range Interpretation Comments LIPASE (test code = 7734005289) 49 U/L 0-220 Lab Interpretation (test code = Normal 65805-7) [facility] HospitalCREATINE [id number] 23:44:57 Test Item Value Reference Range Interpretation Comments CK (test code = 4667303034) 52 U/L 33-194 Lab Interpretation (test code = Normal 62735-2) [facility] HospitalaPTT2021-03-15 23:42:15 Test Item Value Reference Range Interpretation Comments APTT Patient (test See_Comment L [Automat ed code = 3173-2) message] The system which generated this result transmitted reference range : 23 - 38 Seconds . The reference range was not used to interpr et this result as normal/abnormal . NIDIA (test code = NIDIA) The [facility] patient population mean normal value for aPTT is 30 seconds. Lab Interpretation Abnormal (test code = 98127-8) [facility] HospitalProthrombin Time (PT) / [id number] 23:40:14 Test Item Value Reference Range Interpretation [...] tions. Lab Interpretation (test Normal code = 75047-7) [facility] HospitalAC PANEL 21 + LACTIC [id number] 23:39:54 Test Item Value Reference Range Interpretation Comments PH (test code = 7.32-7.42 H 1025768367) PCO2 ALLEN (test code = See_Comment L [Auto mated 6165914205) message] The sy stem which generated this result transmitted reference range : 41 - 51 mmHg. The reference range was not used to interpret this result as normal/abnormal . PO2 ALLEN (test code = See_Comment H [Autom ated 2854062536) message] The sy stem which generated this result transmitted reference range : 25 - 40 mmHg. The reference range was not used to interpret this result as normal/abnormal . HCO3 ALLEN (test code = See_Comment L [Auto mated 8498075784) message] The sy stem which generated this result transmitted reference range : 24 - 28 mEq/L. The reference range was not used to interpret this result as normal/abnormal . AC VBE(BEAKER) (test mEq/L code = 9770806657) THB ALLEN (test code = 15.9 g/dL 13.5-18.0 5341756930) %O2HB ALLEN (test code = 79.7 % 52.0-63.0 H 1968864313) %COHB ALLEN (test code = 6.1 % 0.0-1.5 H 8092454069) %METHB ALLEN (test code = 0.2 % 0.4-1.5 L 8918143178) VOL%O2 ALLEN (test code = 17.7 % 6.0-12.0 H 1251321871) NA (test code = 136 mmol/L 135-145 5419132620) K+ (test code = 3.7 mmol/L 3.5-5.0 5309380408) AC CA IONZ (test code = 4.20 mg/dL 4.50-5.30 L 8791772563) GLUCOSE (test code = 184 mg/dL 70-110 H 4476657709) LACTIC ACID (test code 2.04 mmol/L 0.50-2.20 = 8249879765) Lab Interpretation Abnormal (test code = 41060-1) [facility] HospitalCOVID-19 (ID NOW RAPID TESTING)2020-11-09 20:16:00 Test Item Value Reference Range Interpretation Comments SARS-CoV-2 Rapid ID NOW Not Detected Not Detected (test code = 64096-8) NIDIA (test code = NIDIA) ID NOW COVID-19 Assay is an isothermal nucleic acid amplification test intended for the qualitative detection of nucleic acid from SARS-CoV-2 viral RNA in nasopharyngeal (CLINICAL STAFF ANESTHESIOLOGIST) specimens. It is used under Emergency Use [...] indicated. Lab Interpretation Normal (test code = 19682-4) [facility] HospitalXR CHEST 1 [id number] 18:57:38 1. No radiographic evidence of acute cardiopulmonary process.2. Increased opacities in the lung bases probably represent chronicfibrosis/ Preliminary Report Dictated by Resident: Danny Prado ?MD Rob., have reviewed this study and agree with [...] reviewed this study and agree with the abovereport.[facility] HospitalMonicaalfred [id number] 18:43:00 Test Item Value Reference Range Interpretation Comments TROPONIN I (test 0.003 ng/mL See_Comment [Automated code = 8122164676) message] The system which generated this result [...] ? Lab Interpretation Normal (test code = 43895-7) [facility] HospitalN-TERMINAL [id number] 18:39:00 Test Item Value Reference Range Interpretation Comments NT-proBNP (test code 103 pg/mL See_Comment [Autom ated = 8023155421) message] The system which generated this result transmitted reference range : <=125. The reference range was not used to interpret this result as normal/abnormal . NIDIA (test code = NIDIA) Biotin has been reported to cause a negative bias, interpret results relative to patient's use of biotin. Lab Interpretation Normal (test code = 38914-1) [facility] HospitalCOMP. METABOLIC PANEL (84051)2020-11-09 18:31:00 Test Item Value Reference Range Interpretation Comments NA (test code = 133 mmol/L 135-145 L 7494746664) K (test code = 4.2 mmol/L 3.5-5 4226320922) CL (test code = 97 mmol/L 98-108 L 6334976849) CO2 TOTAL (test code = 29 mmol/L 23-31 1293019239) AGAP (test code = 2-16 6497584830) BUN (test code = 16 mg/dL 7-23 9391434758) GLUCOSE (test code = 306 mg/dL 70-110 H 8605100544) CREATININE (test code = 1.07 mg/dL 0.6-1.25 3271602708) TOTAL BILI (test code = 0.3 mg/dL 0.1-1.2 6095552529) CALCIUM (test code = 8.9 mg/dL 8.6-10.6 8827091534) T PROTEIN (test code = 6.6 g/dL 6.3-8.2 0820254270) ALBUMIN (test code = 4.0 g/dL 3.5-5 8720587036) ALK PHOS (test code = 83 U/L 34-122 0155531284) ALTv (test code = 17 U/L 5-50 1742-6) AST(SGOT) (test code = 18 U/L 13-40 6113423968) eGFR Calculation mL/min/1.73m2 (Non-) (test code = 2273462025) eGFR Calculation mL/min/1.73m2 () (test code = 7890670695) NIDIA (test code = NIDIA) Association of [...] tests). Lab Interpretation Abnormal (test code = 78827-7) General acute hospital with [id number] 18:22:00 Test Item Value Reference Range Interpretation Comments WBC (test code = See_Comment H [Automated 1014-2) message] The system which generated this result transmit sadaf reference range : 4.20 - 10.70 10*3/?L. The reference range was not used to interpret this result as normal/abnormal . RBC (test code = See_Comment [Automated 114-8) message] The system which generated this result [...] RDW-SD (test code = 41.6 fL 38.5-51.6 75421-8) RDW-CV (test code = 13.0 % 12.1-15.4 788-0) PLT (test code = See_Comment [Automated 777-3) message] The system which generated this result transmit sadaf reference range : 150 - 328 10*3/ ?L. The reference range was not u sed to interpret th is result as normal/abnormal . MPV (test code = 10.4 fL 9.8-13 39804-2) NRBC/100 WBC (test See_Comment [Automat ed code = 5821048247) message] The system which generated this result transmit sadaf reference range : 0.0 - 10.0 /100 WBCs. The reference range was not used to interpret this result as normal/abnormal . NRBC x10^3 (test code <0.01 See_Comment [Auto mated = 0628588166) message] The system which generated this result transmit sadaf reference range : 10*3/?L. The reference range was not used to interpret this result as normal/abnormal . GRAN MAT (NEUT) % 79.5 % (test code = 770-8) IMM GRAN % (test code 0.60 % = 3484496935) LYMPH % (test code = 13.1 % 736-9) MONO % (test code = 5.4 % 5905-5) EOS % (test code = 1.0 % 713-8) BASO % (test code = 0.4 % 706-2) GRAN MAT x10^3(ANC) 10.70 10*3/uL 1.99-6.95 H (test code = 3701056068) IMM GRAN x10^3 (test 0.08 10*3/uL 0-0.06 H code = 2557499941) LYMPH x10^3 (test code 1.76 10*3/uL 1.09-3.23 = 731-0) MONO x10^3 (test code 0.72 10*3/uL 0.36-1.02 = 742-7) EOS x10^3 (test code = 0.13 10*3/uL 0.06-0.53 711-2) BASO x10^3 (test code 0.05 10*3/uL 0.01-0.09 = 704-7) Lab Interpretation Abnormal (test code = 46938-0) [facility] GLUCOSE (AUTOMATED)2020-10-05 18:10:00 Test Item Value Reference Range Interpretation Comments POCT GLU (test code = 0370419446) 186 mg/dL 70-110 H Lab Interpretation (test code = Abnormal 64243-1) [facility] [id number] 17:11:00 Test Item Value Reference Range Interpretation Comments AMMONIA (test code = 6135341555) <9 9-33 L Lab Interpretation (test code = Abnormal 53148-0) [facility] GLUCOSE (AUTOMATED)2020-10-05 14:01:00 Test Item Value Reference Range Interpretation Comments POCT GLU (test code = 2396050712) 214 mg/dL 70-110 H Lab Interpretation (test code = Abnormal 67477-6) [facility] Metabolic Panel (NA, K, CL, CO2, GLUCOSE, BUN, CREATININE, CA)2020-10-05 11:31:00 Test Item Value Reference Range Interpretation Comments NA (test code = 136 mmol/L 135-145 0574691426) K (test code = 4.1 mmol/L 3.5-5 1760312584) CL (test code = 108 mmol/L 98-108 6655928247) CO2 TOTAL (test code = 19 mmol/L 23-31 L 0287902090) AGAP (test code = 2-16 4319184870) BUN (test code = 15 mg/dL 7-23 3545185769) GLUCOSE (test code = 155 mg/dL 70-110 H 9658950734) CREATININE (test code = 0.76 mg/dL 0.6-1.25 4659835763) CALCIUM (test code = 8.7 mg/dL 8.6-10.6 0382964543) eGFR Calculation mL/min/1.73m2 (Non-) (test code = 4481308876) eGFR Calculation mL/min/1.73m2 () (test code = 8852608940) NIDIA (test code = NIDIA) Association of [...] tests). Lab Interpretation Abnormal (test code = 12449-7) [facility] acute hospital with [id number] 10:58:00 Test Item Value Reference Range Interpretation Comments WBC (test code = See_Comment [Automated message] 6690-2) The system [employer] generated this result transmitted ref erence range: 4.20 - 1 0.70 10*3/?L. The re ference range was not u sed to interpret this result as normal/abnor mal. RBC (test code = See_Comment [Automated message] 789-8) The system [employer] generated this result transmitted ref erence range: [...] RDW-SD (test code 40.2 fL 38.5-51.6 = 62550-3) RDW-CV (test code 12.1 % 12.1-15.4 = 788-0) PLT (test code = See_Comment [Automated message] 777-3) The system [employer] generated this result transmitted ref erence range: 150 - 32 8 10*3/?L. The re ference range was not u sed to interpret this result as normal/abnor mal. MPV (test code = 10.8 fL 9.8-13 52574-6) NRBC/100 WBC (test See_Comment [Automat ed message] code = 2454226205) The syste m which generated this result transmitted ref erence range: 0.0 - 10 .0 /100 WBCs. The refer ence range was not u sed to interpret this result as normal/abnor mal. NRBC x10^3 (test <0.01 See_Comment [Automated message] code = 9717850024) The syste m which generated this result transmitted ref erence range: 10*3/?L. The reference range was not used to interpr et this result as normal/abnormal . GRAN MAT (NEUT) % 61.1 % (test code = 770-8) IMM GRAN % (test 0.60 % code = 4324444720) LYMPH % (test code 27.7 % = 736-9) MONO % (test code 8.8 % = 5905-5) EOS % (test code = 1.1 % 713-8) BASO % (test code 0.7 % = 706-2) GRAN MAT 5.77 10*3/uL 1.99-6.95 x10^3(ANC) (test code = 5426728382) IMM GRAN x10^3 0.06 10*3/uL 0-0.06 (test code = 6689096174) LYMPH x10^3 (test 2.62 10*3/uL 1.09-3.23 code = 731-0) MONO x10^3 (test 0.83 10*3/uL 0.36-1.02 code = 742-7) EOS x10^3 (test 0.10 10*3/uL 0.06-0.53 code = 711-2) BASO x10^3 (test 0.07 10*3/uL 0.01-0.09 code = 704-7) [facility] / [facility] - [facility] [id number] 00:36:00 Test Item Value Reference Range Interpretation Comments BENZO U (test code = Negative Negative 2940458865) SIDDHARTHA U (test code = Negative Negative 3057848773) AMPHET (test code = Negative Negative 6823901917) THC (test code = Negative Negative 4303029491) METHADONE (test code = Negative Negative 9115705509) Meth U (test code = Negative Negative 6794648109) OPIATES (test code = Negative Negative 0865613998) Cocaine Metabolite (test Negative Negative code = 7533300027) PROPOXY (test code = Negative Negative 4561746001) Tric U (test code = Negative Negative 0571345564) PCP (test code = Negative Negative 3473285933) OXYCOD (test code = Negative Negative 9585242578) NIDIA (test code = NIDIA) Urine Drug [...] testing). Lab Interpretation (test Normal code = 40379-4) [facility] GLUCOSE (AUTOMATED)2020-10-04 22:56:00 Test Item Value Reference Range Interpretation Comments POCT GLU (test code = 6408283608) 133 mg/dL 70-110 H Lab Interpretation (test code = Abnormal 68985-1) [facility] GLUCOSE (AUTOMATED)2020-10-04 18:32:00 Test Item Value Reference Range Interpretation Comments POCT GLU (test code = 2393877333) 250 mg/dL 70-110 H Lab Interpretation (test code = Abnormal 45145-3) [facility] GLUCOSE (AUTOMATED)2020-10-04 14:13:00 Test Item Value Reference Range Interpretation Comments POCT GLU (test code = 8933875945) 136 mg/dL 70-110 H Lab Interpretation (test code = Abnormal 34096-1) [facility] (NA, K, CL, CO2, GLUCOSE, BUN, CREATININE, CA)2020-10-04 12:34:00 Test Item Value Reference Range Interpretation Comments NA (test code = 134 mmol/L 135-145 L 7598886262) K (test code = 4.2 mmol/L 3.5-5 3499458173) CL (test code = 103 mmol/L 98-108 1081628958) CO2 TOTAL (test code = 24 mmol/L 23-31 6617190025) AGAP (test code = 2-16 3934461163) BUN (test code = 15 mg/dL 7-23 3155009273) GLUCOSE (test code = 135 mg/dL 70-110 H 0341203699) CREATININE (test code = 0.92 mg/dL 0.6-1.25 5905465543) CALCIUM (test code = 8.7 mg/dL 8.6-10.6 2931661420) eGFR Calculation mL/min/1.73m2 (Non-) (test code = 5921228009) eGFR Calculation mL/min/1.73m2 () (test code = 0378194187) NIDIA (test code = NIDIA) Association of [...] tests). Lab Interpretation Abnormal (test code = 25404-6) General acute hospital WITH [id number] 11:59:00 Test Item Value Reference Range Interpretation Comments WBC (test code = See_Comment [Automated 5327-2) message] The sy stem which generated this result transmitted reference range : 4.20 - 10.70 10*3/?L. The reference range was not used to interpret this result as normal/abnormal . RBC (test code = See_Comment [Automated 052-5) message] The sy stem which generated this [...] RDW-SD (test code = 39.8 fL 38.5-51.6 08373-9) RDW-CV (test code = 12.1 % 12.1-15.4 788-0) PLT (test code = See_Comment [Automated 777-3) message] The sy stem which generated this result transmitted reference range : 150 - 328 10*3/ ?L. The reference r tin was not used to interpret this result as normal/abnormal . MPV (test code = 10.4 fL 9.8-13 50212-8) NRBC/100 WBC (test See_Comment [Automat ed code = 5504114967) message] The system which generated this result transmitted reference range : 0.0 - 10.0 /100 WBCs. The refer ence range was not u sed to interpret th is result as normal/abnormal . NRBC x10^3 (test code <0.01 See_Comment [Auto mated = 6863082730) message] The s ystem which generated this result transmitted reference range : 10*3/?L. The reference range was not used to interpret this result as normal/abnormal . GRAN MAT (NEUT) % 72.5 % (test code = 770-8) IMM GRAN % (test code 0.60 % = 3698708507) LYMPH % (test code = 17.1 % 736-9) MONO % (test code = 8.0 % 5905-5) EOS % (test code = 1.0 % 713-8) BASO % (test code = 0.8 % 706-2) GRAN MAT x10^3(ANC) 7.47 10*3/uL 1.99-6.95 H (test code = 3146642226) IMM GRAN x10^3 (test 0.06 10*3/uL 0-0.06 code = 7120039074) LYMPH x10^3 (test code 1.76 10*3/uL 1.09-3.23 = 731-0) MONO x10^3 (test code 0.82 10*3/uL 0.36-1.02 = 742-7) EOS x10^3 (test code = 0.10 10*3/uL 0.06-0.53 711-2) BASO x10^3 (test code 0.08 10*3/uL 0.01-0.09 = 704-7) Lab Interpretation Abnormal (test code = 47476-0) [facility] 09:49:00 Test Item Value Reference Range Interpretation Comments ALCOHOL (test code = <10 mg/dL 4208332205) NIDIA (test code = NIDIA) <10 Kzowudfc99-638 Toxic>100 Depression of MASTIC SPRAYER>400 Fatalities Reported [facility] HospitalXR CHEST 1 [id number] 04:23:11 No acute cardiopulmonary abnormality. Preliminary Report [...] this study and agree with theabove report. [facility] HospitalURINALYSIS2021-01-26 02:03:00 Test Item Value Reference Range Interpretation Comments APPEARANCE (test code = Clear Clear 0872063167) COLOR (test code = Yellow Yellow 7926472732) PH (test code = 4.8-8.0 9980363526) SP GRAVITY (test code = 1.003-1.030 9552651431) GLU U QUAL (test code = 500 mg/dL Normal A 0895163293) BLOOD (test code = Negative Negative 1293083293) KETONES (test code = Negative Negative 2549239006) PROTEIN (test code = Negative Negative 2887-8) UROBILIN (test code = 4.0 mg/dL Normal A 0099584788) BILIRUBIN (test code = Negative Negative 3725937089) NITRITE (test code = Negative Negative 8729345408) LEUK RICK (test code = Negative Negative 1582200027) RBC/HPF (test code = <1 See_Comment [Autom ated message] 9256320074) The system [employer] generated this result transmit sadaf reference range : 0 - 3 HPF. The refe rence range was not u sed to interpret th is result as normal/abnormal . WBC/HPF (test code = See_Comment [Autom ated message] 2918546459) The system [employer] generated this result transmit sadaf reference range : 0 - 5 HPF. The refe rence range was not u sed to interpret th is result as normal/abnormal . BACTERIA (test code = Negative Negative 5148763330) MUCOUS (test code = Moderate Negative LPF A 5701084870) SQ EPITH (test code = <1 HPF 9213021004) HYAL CAST (test code = See_Comment H [Aut omated message] 8320521058) The system [employer] generated this result transmit sadaf reference range : <=2 LPF. The refere nce range was not u sed to interpret th is result as normal/abnormal . Lab Interpretation (test Abnormal code = 57843-6) [facility] HospitalCOVID[facility] (ID NOW RAPID TESTING)2020-10-04 01:12:00 Test Item Value Reference Range Interpretation Comments SARS-CoV-2 Rapid ID NOW Not Detected Not Detected (test code = 52993-2) NIDIA (test code = NIDIA) ID NOW COVID-19 Assay is an isothermal nucleic acid amplification test intended for the qualitative detection of nucleic acid from SARS-CoV-2 viral RNA in nasopharyngeal (CLINICAL STAFF ANESTHESIOLOGIST) specimens. It is used under Emergency Use [...] indicated. Lab Interpretation Normal (test code = 41766-4) [facility] HospitalMONICAAlfred [id number] 00:48:00 Test Item Value Reference Range Interpretation Comments TROPONIN I (test <0.012 See_Comment [Automated code = 8270070644) message] The system which generated this result [...] ? Lab Interpretation Normal (test code = 70926-5) [facility] HospitalCOMP. METABOLIC PANEL (93611)2020-10-04 00:43:00 Test Item Value Reference Range Interpretation Comments NA (test code = 134 mmol/L 135-145 L 3923209483) K (test code = 4.0 mmol/L 3.5-5 4554148339) CL (test code = 95 mmol/L 98-108 L 9749157924) CO2 TOTAL (test code = 28 mmol/L 23-31 7478041587) AGAP (test code = 2-16 9410786981) BUN (test code = 15 mg/dL 7-23 9156540064) GLUCOSE (test code = 280 mg/dL 70-110 H 2231277886) CREATININE (test code = 1.27 mg/dL 0.6-1.25 H 4368031885) TOTAL BILI (test code = 0.7 mg/dL 0.1-1.8 0778145642) CALCIUM (test code = 8.8 mg/dL 8.6-10.6 2892821836) T PROTEIN (test code = 6.8 g/dL 6.3-8.2 3386495969) ALBUMIN (test code = 4.0 g/dL 3.5-5 5886288681) ALK PHOS (test code = 91 U/L 34-122 4114193773) ALTv (test code = 13 U/L 5-50 1742-6) AST(SGOT) (test code = 24 U/L 13-40 9872457681) eGFR Calculation mL/min/1.73m2 (Non-) (test code = 7470492926) eGFR Calculation mL/min/1.73m2 () (test code = 3686817009) NIDIA (test code = NIDIA) Association of [...] tests). Lab Interpretation Abnormal (test code = 53863-0) [facility] HospitalMAGNESIUM2021-01-26 00:36:00 Test Item Value Reference Range Interpretation Comments MAGNESIUM (test code = 2517278823) 1.7 mg/dL 1.7-2.4 Lab Interpretation (test code = Normal 31632-7) General acute hospital WITH [id number] 00:02:00 Test Item Value Reference Range Interpretation Comments WBC (test code = See_Comment H [Automated 2474-2) message] The system which generated this result transmit sadaf reference range : 4.20 - 10.70 10*3/?L. The reference range was not used to interpret this result as normal/abnormal . RBC (test code = See_Comment [Automated 969-8) message] The system which generated this result [...] RDW-SD (test code = 39.7 fL 38.5-51.6 77711-8) RDW-CV (test code = 12.2 % 12.1-15.4 788-0) PLT (test code = See_Comment [Automated 777-3) message] The system which generated this result transmit sadaf reference range : 150 - 328 10*3/ ?L. The reference range was not u sed to interpret th is result as normal/abnormal . MPV (test code = 10.7 fL 9.8-13 07837-8) NRBC/100 WBC (test See_Comment [Automat ed code = 5417831496) message] The system which generated this result transmit sadaf reference range : 0.0 - 10.0 /100 WBCs. The reference range was not used to interpret this result as normal/abnormal . NRBC x10^3 (test code <0.01 See_Comment [Auto mated = 2642360542) message] The system which generated this result transmit sadaf reference range : 10*3/?L. The reference range was not used to interpret this result as normal/abnormal . GRAN MAT (NEUT) % 87.7 % (test code = 770-8) IMM GRAN % (test code 0.70 % = 6539366498) LYMPH % (test code = 7.5 % 736-9) MONO % (test code = 3.5 % 5905-5) EOS % (test code = 0.1 % 713-8) BASO % (test code = 0.5 % 706-2) GRAN MAT x10^3(ANC) 12.69 10*3/uL 1.99-6.95 H (test code = 8528558730) IMM GRAN x10^3 (test 0.10 10*3/uL 0-0.06 H code = 0422304873) LYMPH x10^3 (test code 1.09 10*3/uL 1.09-3.23 = 731-0) MONO x10^3 (test code 0.51 10*3/uL 0.36-1.02 = 742-7) EOS x10^3 (test code = <0.03 0.06-0.53 L 711-2) BASO x10^3 (test code 0.07 10*3/uL 0.01-0.09 = 704-7) Lab Interpretation Abnormal (test code = 47913-6) [facility] HospitalCT HEAD WO [id number] 23:35:09 No acute intracranial abnormality.EXAM: CT HEAD [...] The calvariumand central skull base are unremarkable. [facility], Radiant Results Inft User - 10/03/2020 5:36 [...] skull base are unremarkable.IMPRESSIONNo acute intracranial abnormality. [facility] HospitalUrinalysis2020-12-24 02:04:00 Test Item Value Reference Range Interpretation Comments APPEARANCE (test code = Clear Clear 3396521001) COLOR (test code = Yellow Yellow 2371167167) PH (test code = 4.8-8.0 9885300998) SP GRAVITY (test code = 1.003-1.030 2754947818) GLU U QUAL (test code = Normal Normal 4946431696) BLOOD (test code = Negative Negative 5396623061) KETONES (test code = Negative Negative 8436760575) PROTEIN (test code = Negative Negative 2887-8) UROBILIN (test code = Normal Normal 2540925987) BILIRUBIN (test code = Negative Negative 5380325242) NITRITE (test code = Negative Negative 8883828830) LEUK RICK (test code = Negative Negative 5464167419) RBC/HPF (test code = <1 See_Comment [Autom ated message] 0767932774) The system [employer] generated this result transmitted ref erence range: 0 - 3 HP F. The reference range was not used to int erpret this result as normal/abnormal . WBC/HPF (test code = See_Comment [Autom ated message] 9598911791) The system [employer] generated this result transmitted ref erence range: 0 - 5 HP F. The reference range was not used to int erpret this result as normal/abnormal . BACTERIA (test code = Negative Negative 8453034114) MUCOUS (test code = Slight Negative LPF A 9510986049) HYAL CAST (test code = See_Comment H [Aut omated message] 3461243409) The system [employer] generated this result transmitted ref erence range: <=2 LPF. The reference range was not used to int erpret this result as normal/abnormal . Lab Interpretation (test Abnormal code = 42642-2) [facility] HospitalFR [id number] 02:02:00 Test Item Value Reference Range Interpretation Comments FREE T4 (test code = See_Comment [Autom ated message] 9688138300) The system [employer] generated this result transmitted ref erence range: 0.78 - 2 .20 ng/dL:. The ref erence range was not u sed to interpret this result as normal/abnor mal. Lab Interpretation (test Normal code = 87626-3) [facility] HospitalACETAMINOPHEN2020-12-24 01:51:00 Test Item Value Reference Range Interpretation Comments ACETAMINOP (test code = <10.0 10-30 L 8622409283) NIDIA (test code = NIDIA) Toxic: Greater than 200 ug/mL @ 4 hour post ingestion or greater than 50 ug/mL @ 12 hour post ingestion Lab Interpretation (test Abnormal code = 67753-9) [facility] HospitalSALICYLATE2020-12-24 01:51:00 Test Item Value Reference Range Interpretation Comments SALICYLATE (test code <10 mg/L = 4081160147) NIDIA (test code = NIDIA) Therapeutic Range: ? Analgesic and Antipyretic Use ? 20-100 mg/L ? ? Anti-Inflammatory Use ? 100-250 mg/L Toxic Range: ? Greater than 300 mg/L [facility] HospitalETHANOL2020-12-24 01:50:00 Test Item Value Reference Range Interpretation Comments ALCOHOL (test code = <10 mg/dL 4539746229) NIDIA (test code = NIDIA) <10 Ftwzmdyu09-293 Toxic>100 Depression of MASTIC SPRAYER>400 Fatalities Reported [facility] HospitalBasi Metabolic Panel (NA, K, CL, CO2, GLUCOSE, BUN, CREATININE, CA)2020-09-01 01:46:00 Test Item Value Reference Range Interpretation Comments NA (test code = 138 mmol/L 135-145 4139128834) K (test code = 4.3 mmol/L 3.5-5 2206165645) CL (test code = 104 mmol/L 98-108 7863988003) CO2 TOTAL (test code = 25 mmol/L 23-31 5254576697) AGAP (test code = 2-16 0677864342) BUN (test code = 10 mg/dL 7-23 0307108228) GLUCOSE (test code = 137 mg/dL 70-110 H 0010220637) CREATININE (test code = 0.94 mg/dL 0.6-1.25 0981686301) CALCIUM (test code = 8.8 mg/dL 8.6-10.6 3730277484) eGFR Calculation mL/min/1.73m2 (Non-) (test code = 4774788173) eGFR Calculation mL/min/1.73m2 () (test code = 6051308903) NIDIA (test code = NIDIA) Association of [...] tests). Lab Interpretation Abnormal (test code = 79103-7) [facility] HospitalHepatic Function Panel (ALB, T.PRO, BILI T, BU/BC, ALT, AST, ALK PHOS)2020-09-01 01:46:00 Test Item Value Reference Range Interpretation Comments TOTAL BILI (test code = 2049229810) 0.3 mg/dL 0.1-1.1 BILI UNCON (test code = 3635685576) 0.3 mg/dL 0.1-1.1 BILI CONJ (test code = 0041302376) 0.0 mg/dL 0-0.3 T PROTEIN (test code = 4985659846) 6.3 g/dL 6.3-8.2 ALBUMIN (test code = 0311951741) 3.7 g/dL 3.5-5 ALK PHOS (test code = 0076149804) 88 U/L 34-122 ALTv (test code = 1742-6) 9 U/L 5-50 AST(SGOT) (test code = 1867115011) 17 U/L 13-40 Lab Interpretation (test code = Normal 97618-8) [facility] HospitalCREATINE [id number] 01:46:00 Test Item Value Reference Range Interpretation Comments CK (test code = 1785101360) 67 U/L 33-194 Lab Interpretation (test code = Normal 69594-2) [facility] HospitalADC [facility] [id number] 01:45:00 Test Item Value Reference Range Interpretation Comments BENZO U (test code = Negative Negative 3889156813) SIDDHARTHA U (test code = Negative Negative 2612858054) AMPHET (test code = Negative Negative 7568427109) THC (test code = Negative Negative 7075424666) METHADONE (test code = Negative Negative 7294947007) Meth U (test code = Negative Negative 7077168996) OPIATES (test code = Negative Negative 2960715720) Cocaine Metabolite (test Negative Negative code = 4895195404) PROPOXY (test code = Negative Negative 2198461481) Tric U (test code = Negative Negative 0922413383) PCP (test code = Negative Negative 4256843671) OXYCOD (test code = Negative Negative 2472441340) NIDIA (test code = NIDIA) Urine Drug [...] testing). Lab Interpretation (test Normal code = 89849-3) General acute hospital with [id number] 00:45:00 Test Item Value Reference Range Interpretation Comments WBC (test code = See_Comment H [Automated 4475-2) message] The sy stem which generated this [...] RDW-SD (test code = 41.8 fL 38.5-51.6 55923-1) RDW-CV (test code = 12.7 % 12.1-15.4 788-0) PLT (test code = See_Comment [Automated 777-3) message] The sy stem which generated this result transmitted reference range : 150 - 328 10*3/ ?L. The reference r tin was not used to interpret this result as normal/abnormal . MPV (test code = 10.7 fL 9.8-13 71978-6) NRBC/100 WBC (test See_Comment [Automat ed code = 2736906225) message] The system which generated this result transmitted reference range : 0.0 - 10.0 /100 WBCs. The refer ence range was not u sed to interpret th is result as normal/abnormal . NRBC x10^3 (test code <0.01 See_Comment [Auto mated = 3654918686) message] The s ystem which generated this result transmitted reference range : 10*3/?L. The reference range was not used to interpret this result as normal/abnormal . GRAN MAT (NEUT) % 78.9 % (test code = 770-8) IMM GRAN % (test code 0.60 % = 7454197413) LYMPH % (test code = 13.3 % 736-9) MONO % (test code = 5.8 % 5905-5) EOS % (test code = 0.8 % 713-8) BASO % (test code = 0.6 % 706-2) GRAN MAT x10^3(ANC) 8.79 10*3/uL 1.99-6.95 H (test code = 8551788223) IMM GRAN x10^3 (test 0.07 10*3/uL 0-0.06 H code = 8057801567) LYMPH x10^3 (test code 1.48 10*3/uL 1.09-3.23 = 731-0) MONO x10^3 (test code 0.65 10*3/uL 0.36-1.02 = 742-7) EOS x10^3 (test code = 0.09 10*3/uL 0.06-0.53 711-2) BASO x10^3 (test code 0.07 10*3/uL 0.01-0.09 = 704-7) Lab Interpretation Abnormal (test code = 96456-2) [facility] HospitalCT LUNG CANCER [id number] 21:57:03 1. Stable noncalcified bilateral pulmonary nodules [...] modifier: Coronary atherosclerosis, COPDand small pericardial effusion. [facility] HospitalCARLEEN [id number] 17:18:00 Test Item Value Reference Range Interpretation Comments TROPONIN I (test <0.012 See_Comment [Automated code = 6165519449) message] The system which generated this result [...] ? Lab Interpretation Normal (test code = 68217-8) [facility]. METABOLIC PANEL (16731)2020-08-03 17:08:00 Test Item Value Reference Range Interpretation Comments NA (test code = 137 mmol/L 135-145 4074672164) K (test code = 3.7 mmol/L 3.5-5 7430739696) CL (test code = 104 mmol/L 98-108 8291480595) CO2 TOTAL (test code = 26 mmol/L 23-31 6636321483) AGAP (test code = 2-16 4590615360) BUN (test code = 10 mg/dL 7-23 9570787549) GLUCOSE (test code = 167 mg/dL 70-110 H 5603053667) CREATININE (test code = 0.79 mg/dL 0.6-1.25 8355767548) TOTAL BILI (test code = 0.3 mg/dL 0.1-1.7 3118522407) CALCIUM (test code = 9.1 mg/dL 8.6-10.6 6942017921) T PROTEIN (test code = 6.2 g/dL 6.3-8.2 L 8489275814) ALBUMIN (test code = 3.5 g/dL 3.5-5 4614575488) ALK PHOS (test code = 83 U/L 34-122 4993072383) ALTv (test code = 11 U/L 5-50 1742-6) AST(SGOT) (test code = 17 U/L 13-40 4323623652) eGFR Calculation mL/min/1.73m2 (Non-) (test code = 2880331289) eGFR Calculation mL/min/1.73m2 () (test code = 4870338916) NIDIA (test code = NIDIA) Association of [...] tests). Lab Interpretation Abnormal (test code = 95657-8) [facility] HospitalLIPASE, [id number] 17:07:00 Test Item Value Reference Range Interpretation Comments LIPASE (test code = 9764213387) 75 U/L 0-220 Lab Interpretation (test code = Normal 30192-5) [facility] HospitalaPTT2020-11-25 16:32:00 Test Item Value Reference Range Interpretation Comments APTT Patient (test See_Comment [Automat ed code = 3173-2) message] The system which generated this result transmitted reference range : 23 - 38 Seconds . The reference range was not used to interpr et this result as normal/abnormal . NIDIA (test code = NIDIA) The [facility] patient population mean normal value for aPTT is 30 seconds. Lab Interpretation Normal (test code = 35121-0) [facility] HospitalPROT[facility]OMBIN TIME / [id number] 16:30:00 Test Item Value Reference Range Interpretation [...] tions. Lab Interpretation (test Normal code = 22412-4) [facility] HospitalXR CHEST 1 [id number] 16:26:44HISTORY: Chest pain. TECHNIQUE: 2 Portable AP view of the chest were obtained. Comparison madewith 08/02/2015 study. FINDINGS: No acute pneumonia. No pneumothorax or pleural effusion orpulmonary congestion detected. 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 Mild upper lobe predominant obstructivelung disease suspected. CONCLUSIONS: No signs of acute cardiopulmonary disease. [facility], Radiant Results Inft User - 08/03/2020 10:27 [...] suspected.CONCLUSIONS: No signs of acute cardiopulmonary disease. [facility] HospitalCBC WITH [id number] 16:20:00 Test Item Value Reference Range Interpretation [...] RDW-SD (test code = 42.7 fL 38.5-51.6 24599-9) RDW-CV (test code = 13.0 % 12.1-15.4 788-0) PLT (test code = See_Comment [Automated 777-3) message] The sy stem which generated this result transmitted reference range : 150 - 328 10*3/ ?L. The reference r tin was not used to interpret this result as normal/abnormal . MPV (test code = 10.5 fL 9.8-13 20344-2) NRBC/100 WBC (test See_Comment [Automat ed code = 8139991740) message] The system which generated this result transmitted reference range : 0.0 - 10.0 /100 WBCs. The refer ence range was not u sed to interpret th is result as normal/abnormal . NRBC x10^3 (test code <0.01 See_Comment [Auto mated = 1684377044) message] The s ystem which generated this result transmitted reference range : 10*3/?L. The reference range was not used to interpret this result as normal/abnormal . GRAN MAT (NEUT) % 76.0 % (test code = 770-8) IMM GRAN % (test code 0.50 % = 1725241235) LYMPH % (test code = 15.3 % 736-9) MONO % (test code = 7.0 % 5905-5) EOS % (test code = 0.8 % 713-8) BASO % (test code = 0.4 % 706-2) GRAN MAT x10^3(ANC) 7.59 10*3/uL 1.99-6.95 H (test code = 8413011770) IMM GRAN x10^3 (test 0.05 10*3/uL 0-0.06 code = 2936833934) LYMPH x10^3 (test code 1.53 10*3/uL 1.09-3.23 = 731-0) MONO x10^3 (test code 0.70 10*3/uL 0.36-1.02 = 742-7) EOS x10^3 (test code = 0.08 10*3/uL 0.06-0.53 711-2) BASO x10^3 (test code 0.04 10*3/uL 0.01-0.09 = 704-7) Lab Interpretation Abnormal (test code = 70018-1) [facility] HospitalUrinalysis2020-09-07 00:09:00 Test Item Value Reference Range Interpretation Comments APPEARANCE (test code = Clear Clear 1640763296) COLOR (test code = Yellow Yellow 9114516181) PH (test code = 4.8-8.0 2984908963) SP GRAVITY (test code = 1.003-1.030 9172114698) GLU U QUAL (test code = Normal Normal 2298889712) BLOOD (test code = Negative Negative 5179817436) KETONES (test code = Negative Negative 0977803045) PROTEIN (test code = Negative Negative 2887-8) UROBILIN (test code = Normal Normal 8236475925) BILIRUBIN (test code = Negative Negative 7730357454) NITRITE (test code = Negative Negative 9718315441) LEUK RICK (test code = Negative Negative 8053735044) RBC/HPF (test code = See_Comment H [Autom ated message] 9288134962) The system [employer] generated this result transmitted ref erence range: 0 - 3 HP F. The reference range was not used to int erpret this result as normal/abnormal . WBC/HPF (test code = See_Comment [Autom ated message] 4147972322) The system [employer] generated this result transmitted ref erence range: 0 - 5 HP F. The reference range was not used to int erpret this result as normal/abnormal . BACTERIA (test code = Few Negative A 4524906255) MUCOUS (test code = Slight Negative LPF A 0763183184) Lab Interpretation (test Abnormal code = 59913-0) [facility] HospitalTROPONIN [id number] 23:31:00 Test Item Value Reference Range Interpretation Comments TROPONIN I (test <0.012 See_Comment [Automated code = 4656452323) message] The system which generated this result [...] ? Lab Interpretation Normal (test code = 50707-5) [facility] HospitalaPTT2020-09-06 23:23:00 Test Item Value Reference Range Interpretation Comments APTT Patient (test See_Comment [Automat ed code = 3173-2) message] The system which generated this result transmitted reference range : 23 - 38 Seconds . The reference range was not used to interpr et this result as normal/abnormal . NIDIA (test code = NIDIA) The [facility] patient population mean normal value for aPTT is 30 seconds. Lab Interpretation Normal (test code = 81974-6) [facility] HospitalPROTHROMBIN TIME / [id number] 23:21:00 Test Item Value Reference Range Interpretation Comments PROTIME PATIENT (test See_Comment [Auto mated message] code = 5964-2) The system [employer] generated this result transmitted ref erence range: 12.0 - 1 4.7 Seconds. The re ference range was not u sed to interpret this result as normal/abnor mal. INR (test code = 6301-6) Nor mal INR <1.1; Warfarin Therap eutic range 2.0 to 3. 0 or 2.5 to 3.5, dep ending upon the indica tions. Lab Interpretation (test Normal code = 97807-2) [facility] HospitalCOMP. METABOLIC PANEL (61054)2020-05-15 23:20:00 Test Item Value Reference Range Interpretation Comments NA (test code = 138 mmol/L 135-145 9633110811) K (test code = 4.0 mmol/L 3.5-5 4320072157) CL (test code = 102 mmol/L 98-108 5786438336) CO2 TOTAL (test code = 30 mmol/L 23-31 6073204963) AGAP (test code = 2-16 1821132737) BUN (test code = 12 mg/dL 7-23 5765136682) GLUCOSE (test code = 121 mg/dL 70-110 H 7008017668) CREATININE (test code = 1.13 mg/dL 0.6-1.25 8694104204) TOTAL BILI (test code = 0.3 mg/dL 0.1-1.0 0919245783) CALCIUM (test code = 8.9 mg/dL 8.6-10.6 7318890044) T PROTEIN (test code = 6.3 g/dL 6.3-8.2 6213456279) ALBUMIN (test code = 3.7 g/dL 3.5-5 4664751775) ALK PHOS (test code = 78 U/L 34-122 8104964244) ALTv (test code = 22 U/L 5-50 1742-6) AST(SGOT) (test code = 21 U/L 13-40 6827346786) eGFR Calculation mL/min/1.73m2 (Non-) (test code = 3459027464) eGFR Calculation mL/min/1.73m2 () (test code = 4621319076) NIDIA (test code = NIDIA) Association of [...] tests). Lab Interpretation Abnormal (test code = 51680-2) [facility] HospitalLIPASE, [id number] 23:20:00 Test Item Value Reference Range Interpretation Comments LIPASE (test code = 7344729685) 47 U/L 0-220 Lab Interpretation (test code = Normal 12766-4) [facility] HospitalCREATINE [id number] 23:20:00 Test Item Value Reference Range Interpretation Comments CK (test code = 8651959352) 60 U/L 33-194 Lab Interpretation (test code = Normal 62816-7) [facility] HospitalCB WITH [id number] 23:06:00 Test Item Value Reference Range Interpretation [...] RDW-SD (test code = 43.9 fL 38.5-51.6 36967-5) RDW-CV (test code = 13.4 % 12.1-15.4 788-0) PLT (test code = See_Comment [Automated 777-3) message] The sy stem which generated this result transmitted reference range : 150 - 328 10*3/ ?L. The reference r tin was not used to interpret this result as normal/abnormal . MPV (test code = 10.0 fL 9.8-13 42202-2) NRBC/100 WBC (test See_Comment [Automat ed code = 5429747480) message] The system which generated this result transmitted reference range : 0.0 - 10.0 /100 WBCs. The refer ence range was not u sed to interpret th is result as normal/abnormal . NRBC x10^3 (test code <0.01 See_Comment [Auto mated = 1392100241) message] The s ystem which generated this result transmitted reference range : 10*3/?L. The reference range was not used to interpret this result as normal/abnormal . GRAN MAT (NEUT) % 76.5 % (test code = 770-8) IMM GRAN % (test code 0.80 % = 4720803842) LYMPH % (test code = 13.0 % 736-9) MONO % (test code = 8.1 % 5905-5) EOS % (test code = 0.9 % 713-8) BASO % (test code = 0.7 % 706-2) GRAN MAT x10^3(ANC) 6.44 10*3/uL 1.99-6.95 (test code = 6945513185) IMM GRAN x10^3 (test 0.07 10*3/uL 0-0.06 H code = 3979969516) LYMPH x10^3 (test code 1.10 10*3/uL 1.09-3.23 = 731-0) MONO x10^3 (test code 0.68 10*3/uL 0.36-1.02 = 742-7) EOS x10^3 (test code = 0.08 10*3/uL 0.06-0.53 711-2) BASO x10^3 (test code 0.06 10*3/uL 0.01-0.09 = 704-7) Lab Interpretation Abnormal (test code = 72434-0) [facility] HospitalTHYROID STIMULATING [id number] 15:15:00 Test Item Value Reference Range Interpretation Comments TSH (test code = See_Comment [Automated message] 5115185439) The system [employer] generated this result transmitted ref erence range: 0.45 - 4 .70 mIU/L. The refe rence range was not u sed to interpret this result as normal/abnor mal. Lab Interpretation (test Normal code = 58775-4) [facility] HospitalTHYROID STIMULATING [id number] 15:15:00 Test Item Value Reference Range Interpretation Comments TSH (test code = See_Comment [Automated message] 3365663875) The system [employer] generated this result transmitted ref erence range: 0.45 - 4 .70 mIU/L. The refe rence range was not u sed to interpret this result as normal/abnor mal. Lab Interpretation (test Normal code = 10397-3) [facility] [id number] 15:01:00 Test Item Value Reference Range Interpretation Comments FREE T4 (test code = 4502296328) 0.88 ng/dL 0.78-2.2 Lab Interpretation (test code = Normal 54419-0) [facility] [id number] 15:01:00 Test Item Value Reference Range Interpretation Comments FREE T3 (test code = 2759943206) 3.70 pg/mL 2.77-5.27 Lab Interpretation (test code = Normal 94308-6) [facility] [id number] 15:01:00 Test Item Value Reference Range Interpretation Comments FREE T4 (test code = 5463477642) 0.88 ng/dL 0.78-2.2 Lab Interpretation (test code = Normal 60975-8) [facility] [id number] 15:01:00 Test Item Value Reference Range Interpretation Comments FREE T3 (test code = 9879480676) 3.70 pg/mL 2.77-5.27 Lab Interpretation (test code = Normal 63730-0) [facility] HospitalURINALYSIS2020 14:59:00 Test Item Value Reference Range Interpretation Comments APPEARANCE (test code = Clear Clear 1536888290) COLOR (test code = Yellow Yellow 4888246509) PH (test code = 4.8-8.0 0731392854) SP GRAVITY (test code = 1.003-1.030 0417672927) GLU U QUAL (test code = Normal Normal 1534039133) BLOOD (test code = Negative Negative 8504221273) KETONES (test code = Negative Negative 4735099461) PROTEIN (test code = Negative Negative 2887-8) UROBILIN (test code = Normal Normal 2641858521) BILIRUBIN (test code = Negative Negative 2158148761) NITRITE (test code = Negative Negative 5303514948) LEUK RICK (test code = 25/uL Negative A 9522522428) RBC/HPF (test code = See_Comment [Autom ated message] 2589052651) The system [employer] generated this result transmitted ref erence range: 0 - 3 HP F. The reference range was not used to int erpret this result as normal/abnormal . WBC/HPF (test code = See_Comment [Autom ated message] 0593521111) The system [employer] generated this result transmitted ref erence range: 0 - 5 HP F. The reference range was not used to int erpret this result as normal/abnormal . BACTERIA (test code = Negative Negative 0566626258) MUCOUS (test code = Slight Negative LPF A 4041112210) SQ EPITH (test code = HPF 9200040523) Lab Interpretation (test Abnormal code = 86009-6) [facility] HospitalURINALYSIS2020 14:59:00 Test Item Value Reference Range Interpretation Comments APPEARANCE (test code = Clear Clear 8573394562) COLOR (test code = Yellow Yellow 4421037687) PH (test code = 4.8-8.0 1098812734) SP GRAVITY (test code = 1.003-1.030 1646988198) GLU U QUAL (test code = Normal Normal 1381715225) BLOOD (test code = Negative Negative 7997428509) KETONES (test code = Negative Negative 8594340958) PROTEIN (test code = Negative Negative 2887-8) UROBILIN (test code = Normal Normal 0167324263) BILIRUBIN (test code = Negative Negative 9957196029) NITRITE (test code = Negative Negative 3762384557) LEUK RICK (test code = 25/uL Negative A 5980049189) RBC/HPF (test code = See_Comment [Autom ated message] 4159043575) The system [employer] generated this result transmitted ref erence range: 0 - 3 HP F. The reference range was not used to int erpret this result as normal/abnormal . WBC/HPF (test code = See_Comment [Autom ated message] 4245445029) The system [employer] generated this result transmitted ref erence range: 0 - 5 HP F. The reference range was not used to int erpret this result as normal/abnormal . BACTERIA (test code = Negative Negative 3429459045) MUCOUS (test code = Slight Negative LPF A 0275860339) SQ EPITH (test code = HPF 9807227541) Lab Interpretation (test Abnormal code = 46237-4) [facility] HospitalCOMP. METABOLIC PANEL (56231)2020-01-15 14:44:00 Test Item Value Reference Range Interpretation Comments NA (test code = 137 mmol/L 135-145 1176361369) K (test code = 4.7 mmol/L 3.5-5 1147516831) CL (test code = 102 mmol/L 98-108 4319799036) CO2 TOTAL (test code = 23 mmol/L 23-31 8028927107) AGAP (test code = 2-16 4569149587) BUN (test code = 14 mg/dL 7-23 1947863195) GLUCOSE (test code = 149 mg/dL 70-110 H 0046724731) CREATININE (test code = 0.84 mg/dL 0.6-1.25 0670056697) TOTAL BILI (test code = 0.6 mg/dL 0.1-1.5 4589100571) CALCIUM (test code = 9.5 mg/dL 8.6-10.6 8814930656) T PROTEIN (test code = 7.7 g/dL 6.3-8.2 6938752527) ALBUMIN (test code = 4.6 g/dL 3.5-5 7020575489) ALK PHOS (test code = 92 U/L 34-122 4202747524) ALTv (test code = 22 U/L 5-50 1742-6) AST(SGOT) (test code = 22 U/L 13-40 4174367965) eGFR Calculation mL/min/1.73m2 (Non-) (test code = 0723226423) eGFR Calculation mL/min/1.73m2 () (test code = 9372530286) NIDIA (test code = NIDIA) Association of [...] tests). Lab Interpretation Abnormal (test code = 02639-5) [facility] HospitalLIPID PANEL (60958)(TOTAL CHOLESTEROL, TRIGLYCERIDES, HDL)2020-01-15 14:44:00 Test Item Value Reference Range Interpretation Comments CHOL (test code = 236 mg/dL 120-200 H 8614843397) HDL (test code = 53 mg/dL >40 4451027561) HDLC RATIO (test code = See_Comment [Au tomated message] 5200290566) The system [employer] generated this result transmit sadaf reference range : <=5.0. The refe rence range was not u sed to interpret th is result as normal/abnormal . TRIG (test code = 86 mg/dL 30-170 9799733793) LDL CHOL (test code = 166 mg/dL See_Comment H [Auto mated message] 43476-8) The system [employer] generated this result transmit sadaf reference range : <=160. The refe rence range was not u sed to interpret th is result as normal/abnormal . VLDL (test code = 17 mg/dL 5-60 3393586390) Lab Interpretation (test Abnormal code = 09159-1) [facility] HospitalCOMP. METABOLIC PANEL (00025)2020-01-15 14:44:00 Test Item Value Reference Range Interpretation Comments NA (test code = 137 mmol/L 135-145 7447659393) K (test code = 4.7 mmol/L 3.5-5 5389781934) CL (test code = 102 mmol/L 98-108 9792620683) CO2 TOTAL (test code = 23 mmol/L 23-31 9055989992) AGAP (test code = 2-16 7450434464) BUN (test code = 14 mg/dL 7-23 8727719940) GLUCOSE (test code = 149 mg/dL 70-110 H 9325697025) CREATININE (test code = 0.84 mg/dL 0.6-1.25 6466323496) TOTAL BILI (test code = 0.6 mg/dL 0.1-1.9 8327048623) CALCIUM (test code = 9.5 mg/dL 8.6-10.6 8587154744) T PROTEIN (test code = 7.7 g/dL 6.3-8.2 6217056660) ALBUMIN (test code = 4.6 g/dL 3.5-5 8715068160) ALK PHOS (test code = 92 U/L 34-122 9693425041) ALTv (test code = 22 U/L 5-50 1742-6) AST(SGOT) (test code = 22 U/L 13-40 4906711648) eGFR Calculation mL/min/1.73m2 (Non-) (test code = 8178161221) eGFR Calculation mL/min/1.73m2 () (test code = 2488345853) NIDIA (test code = NIDIA) Association of [...] tests). Lab Interpretation Abnormal (test code = 30480-9) [facility] HospitalLIPID PANEL (05501)(TOTAL CHOLESTEROL, TRIGLYCERIDES, HDL)2020-01-15 14:44:00 Test Item Value Reference Range Interpretation Comments CHOL (test code = 236 mg/dL 120-200 H 0896568220) HDL (test code = 53 mg/dL >40 6313940340) HDLC RATIO (test code = See_Comment [Au tomated message] 9943104997) The system [employer] generated this result transmit sadaf reference range : <=5.0. The refe rence range was not u sed to interpret th is result as normal/abnormal . TRIG (test code = 86 mg/dL 30-170 3165586358) LDL CHOL (test code = 166 mg/dL See_Comment H [Auto mated message] 18556-4) The system [employer] generated this result transmit sadaf reference range : <=160. The refe rence range was not u sed to interpret th is result as normal/abnormal . VLDL (test code = 17 mg/dL 5-60 9587930003) Lab Interpretation (test Abnormal code = 13838-7) [facility] HospitalGLYCOSYLATED HEMOGLOBIN (A1C)2020-01-15 14:43:00 Test Item Value Reference [...] Indicated Lab Interpretation Abnormal (test code = 49259-0) [facility] HospitalGLYCOSYLATED HEMOGLOBIN (A1C)2020-01-15 14:43:00 Test Item Value Reference [...] Indicated Lab Interpretation Abnormal (test code = 49971-3) [facility] hospital WITH [id number] 14:40:00 Test Item Value Reference Range Interpretation [...] RDW-SD (test code = 40.7 fL 38.5-51.6 70991-6) RDW-CV (test code = 12.3 % 12.1-15.4 788-0) PLT (test code = See_Comment [Automated 777-3) message] The sy stem which generated this result transmitted reference range : 150 - 328 10*3/ ?L. The reference r tin was not used to interpret this result as normal/abnormal . MPV (test code = 10.4 fL 9.8-13 92741-7) NRBC/100 WBC (test See_Comment [Automat ed code = 7650497941) message] The system which generated this result transmitted reference range : 0.0 - 10.0 /100 WBCs. The refer ence range was not u sed to interpret th is result as normal/abnormal . NRBC x10^3 (test code <0.01 See_Comment [Auto mated = 8720231946) message] The s ystem which generated this result transmitted reference range : 10*3/?L. The reference range was not used to interpret this result as normal/abnormal . GRAN MAT (NEUT) % 69.1 % (test code = 770-8) IMM GRAN % (test code 0.70 % = 3080844769) LYMPH % (test code = 19.5 % 736-9) MONO % (test code = 8.2 % 5905-5) EOS % (test code = 1.5 % 713-8) BASO % (test code = 1.0 % 706-2) GRAN MAT x10^3(ANC) 6.16 10*3/uL 1.99-6.95 (test code = 0534214530) IMM GRAN x10^3 (test 0.06 10*3/uL 0-0.06 code = 7381352416) LYMPH x10^3 (test code 1.74 10*3/uL 1.09-3.23 = 731-0) MONO x10^3 (test code 0.73 10*3/uL 0.36-1.02 = 742-7) EOS x10^3 (test code = 0.13 10*3/uL 0.06-0.53 711-2) BASO x10^3 (test code 0.09 10*3/uL 0.01-0.09 = 704-7) Lab Interpretation Abnormal (test code = 01856-6) [facility] acute hospital WITH [id number] 14:40:00 Test Item Value Reference Range Interpretation Comments WBC (test code = See_Comment [Automated 7090-2) message] The sy stem which generated this [...] RDW-SD (test code = 40.7 fL 38.5-51.6 00152-7) RDW-CV (test code = 12.3 % 12.1-15.4 788-0) PLT (test code = See_Comment [Automated 777-3) message] The sy stem which generated this result transmitted reference range : 150 - 328 10*3/ ?L. The reference r tin was not used to interpret this result as normal/abnormal . MPV (test code = 10.4 fL 9.8-13 63952-5) NRBC/100 WBC (test See_Comment [Automat ed code = 4888116589) message] The system which generated this result transmitted reference range : 0.0 - 10.0 /100 WBCs. The refer ence range was not u sed to interpret th is result as normal/abnormal . NRBC x10^3 (test code <0.01 See_Comment [Auto mated = 2728290891) message] The s ystem which generated this result transmitted reference range : 10*3/?L. The reference range was not used to interpret this result as normal/abnormal . GRAN MAT (NEUT) % 69.1 % (test code = 770-8) IMM GRAN % (test code 0.70 % = 6533426381) LYMPH % (test code = 19.5 % 736-9) MONO % (test code = 8.2 % 5905-5) EOS % (test code = 1.5 % 713-8) BASO % (test code = 1.0 % 706-2) GRAN MAT x10^3(ANC) 6.16 10*3/uL 1.99-6.95 (test code = 4508150737) IMM GRAN x10^3 (test 0.06 10*3/uL 0-0.06 code = 0148940560) LYMPH x10^3 (test code 1.74 10*3/uL 1.09-3.23 = 731-0) MONO x10^3 (test code 0.73 10*3/uL 0.36-1.02 = 742-7) EOS x10^3 (test code = 0.13 10*3/uL 0.06-0.53 711-2) BASO x10^3 (test code 0.09 10*3/uL 0.01-0.09 = 704-7) Lab Interpretation Abnormal (test code = 96612-3) [facility]"
[2021-08-13 13:50] LABS: Absolute Lymphocytes (CBC) 1.1 K/uL (0.7-4.9); Basophils % 0.8 % (0-1.3); Hematocrit 37.3 % (39.6-49.0); Lymphocytes % 15.9 % (15.3-44.8); MPV 8.2 fL (7.6-11.3); RBC Red Blood Cell Count 3.91 M/uL (4.33-5.43)
[2021-08-13 14:05] LABS: BUN Blood Urea Nitrogen 10 mg/dL (7-18); Bicarbonate 28 mmol/L (21-32); Glucose Level 152 mg/dL (74-106); NT PRO-BNP 100 pg/mL (<125); Potassium 3.8 mmol/L (3.5-5.1); Sodium Level 141 mmol/L (136-145); Troponin (Emerg Dept Use Only) < 0.02 ng/mL (0.0-0.045)
[2021-08-13] MEDS ORDERED: NA CHLORIDE 0.9% 1,000 ML ONE (14:25)
[2021-08-13 14:34] LABS: Urine Blood Negative (Negative); Urine Glucose Negative (Negative); Urine Protein Negative (Negative); Urine Specific Gravity 1.015 (1.005-1.030); Urine pH 5.5 (5.0-7.0)
[2021-08-13 14:40] LABS: SARS-COV-2 RT PCR NEGATIVE (NEGATIVE)
--- NOTE | 2021-08-13 15:25 | ER ---
Nurse's Notes [facility] Name: Raghav Lipscomb Age: 61 yrs Sex: Male : 1960 Arrival Date: 08/13/2021 Time: 13:10 Bed 14 Private MD: Diagnosis: Dizziness and giddiness Presentation: 08/13 13:21 Chief complaint: EMS states: Ems called out to [facility] for pt becoming dizzy. pt states 6 that he felt fine this am and that is was just aniety that was causing him to feel dizzy. Coronavirus screen: Vaccine status: Patient reports receiving the 2nd dose of the covid vaccine. Client denies travel out of the [place] in the last 14 days. At this time, the client does not indicate any symptoms associated with coronavirus-19. Ebola Screen: Patient negative for fever greater than or equal to 101.5 degrees Fahrenheit, and additional compatible Ebola Virus Disease symptoms No symptoms or risks identified at this time. Initial Sepsis Screen: Does the patient meet any 2 criteria? No. Patient's initial sepsis screen is negative. Does the patient have a suspected source of infection? No. Patient's initial sepsis screen is negative. Risk Assessment: Do you want to hurt yourself or someone else? Patient reports no desire to harm self or others. Onset of symptoms was August 13, 2021. 13:21 Method Of Arrival: EMS: [place] [id number] 13:21 Acuity: SINDY 3 6 Triage Assessment: 13:24 General: Appears in no apparent distress. comfortable, Behavior is calm, cooperative, jh6 drowsy, quiet. Pain: Denies pain. - Immunization history:: Client reports receiving the 2nd dose of the Covid vaccine. - Family history:: not pertinent. - Social history:: Smoking status: Patient reports the use of cigarette tobacco products. - Hospitalizations: : No recent hospitalization is reported. Screenin:05 Abuse screen: Denies threats or abuse. [facility] 13:05 Nutritional screening: No deficits noted. Tuberculosis screening: No symptoms or risk [facility] factors identified. Fall Risk Gait- Weak (10 pts.). Assessment: 13:24 General: Appears in no apparent distress. comfortable. Pain: Denies pain. Neuro: [facility] Oriented to person, place, time, situation. 14:30 Reassessment: Patient and/or family updated on plan of care and expected duration. Pain jh6 level reassessed. Patient is alert, oriented x 3, equal unlabored respirations, skin warm/dry/pink. Patient denies pain at this time. Patient states feeling better. 15:33 Reassessment: Patient and/or family updated on plan of care and expected duration. Pain jh6 level reassessed. Patient is alert, oriented x 3, equal unlabored respirations, skin warm/dry/pink. Patient states feeling better. 15:34 Reassessment: pt states that he feels better and is not dizzy with standing. no longer jh6 feeling anxious. Vital Signs: 13:21 BP 114 / 59; Pulse 56; Resp 17; Temp 97.8(O); Pulse Ox 99% on R/A; Weight 98.88 kg; 6 Height 6 ft. 1 in. (185.42 cm); Pain 0/10; 14:30 BP 119 / 59; Pulse 74; Resp 18; Temp 97.8; Pulse Ox 100% ; Pain 0/10; 6 15:32 BP 125 / 80; Pulse 77; Resp 18; Pulse Ox 100% ; Pain 0/10; 6 13:21 Body Mass Index 28.76 (98.88 kg, 185.42 cm) [facility] Vitals: 13:00 Cardiac Rhythm Assessment Paced. [facility] ED Course: 13:10 Patient arrived in ED. ds1 13:11 Sukhwinder Zuluaga MD is Attending Physician. rn 13:15 No provider procedures requiring assistance completed. [facility] 13:15 Inserted saline lock: 20 gauge in right antecubital area, using aseptic technique. [facility] 13:21 Leah Marvin, RN is Primary Nurse. [facility] 13:21 EKG done, by ED staff, reviewed by Sukhwinder Zuluaga MD. Maintain EMS IV. Dressing intact. 5 Good blood return noted. Site clean \\T\\ dry. 13:21 Patient has correct armband on for positive identification. Bed in low position. Call 5 light in reach. Side rails up X2. Warm blanket given. campus monitor on. Pulse ox on. NIBP on. 13:24 Triage completed. [facility] 13:33 Initial lab(s) drawn, by ED staff, sent to lab. COVID swab sent to lab. Flu and/or RSV mh5 swab sent to lab. 13:33 SARS-COV-2 RT PCR (Document "Date of Onset" if Symptomatic) Sent. [facility] 13:33 Troponin (Emerg Dept Use Only) Sent. [facility] 13:33 BNP Sent. [facility] 13:33 Troponin (emerg Dept Use Only) Sent. [facility] 13:33 Procalcitonin Sent. [facility] 13:34 Basic Metabolic Panel Sent. [facility] 13:34 CBC with Diff Sent. [facility] 13:35 EKG completed in triage. Results shown to MD. [facility] 15:03 Awaiting lab results, Awaiting radiology results. [facility] 15:33 IV discontinued, intact, bleeding controlled, No redness/swelling at site. Pressure [facility] dressing applied. 15:33 Patient none. [facility] Administered Medications: 14:45 Drug: NS 0.9% 1000 ml Route: IV; Rate: 1000 ml; Site: right antecubital; [facility] Outcome: 15:24 Discharge ordered by MD. rn 15:33 Discharged to home ambulatory. [facility] 15:33 Condition: improved 15:33 Discharge instructions given to patient. 15:34 Patient left the ED. [facility] Signatures: Milly Johnson ds1 Sukhwinder Zuluaga MD MD rn Jaquelin Stahl [facility] Leah Marvin, RN RN [facility] Corrections: (The following items were deleted from the chart) 13:59 13:33 SARS-COV-2 RT PCR drawn and sent. [address] 13:59 13:33 Influenza Screen (A \\T\\ B)+BA.LAB.BRZ drawn and sent. [facility] EDTN 15:04 13:35 PMHx: Schizophrenia; [place] [id number] 15:04 13:35 PMHx: Pacemaker; [place] [id number] 15:04 13:35 PMHx: diabetes mellitus; [place] [id number]
--- NOTE | 2021-08-13 15:25 | EDPHYS ---
Physician Documentation [facility] Name: Raghav Lipscomb Age: 61 yrs Sex: Male : 1960 Arrival Date: 08/13/2021 Time: 13:10 Bed 14 Private MD: ED Physician Sukhwinder Zuluaga HPI: 08/13 14:00 This 61 yrs old Male presents to ER via EMS with complaints of Dizziness. rn 14:00 The patient presents with dizziness, lightheadedness. Onset: The symptoms/episode rn began/occurred this morning. Modifying factors: The symptoms are alleviated by nothing, the symptoms are aggravated by standing up, changing position. Associated signs and symptoms: Pertinent negatives: abdominal pain, blurred vision, chest pain, confusion, head injury, headache, seizure, shortness of breath, syncope, tingling, vomiting. Severity of symptoms: At their worst the symptoms were moderate in the emergency department the symptoms have improved. The patient has experienced similar episodes in the past. The patient has not recently seen a physician. Patient reports 2 episodes of dizziness and lightheadedness. Began this morning. Called EMS out, but refused transport. Patient called EMS again later and brought to the hospital for further evaluation. Patient states this happens when he gets anxious, and has had episodes of transient low blood pressure in the past and not sure what causes it. Denies any recent changes in medication. No chest pain or shortness of breath. No vomiting or diarrhea. No abdominal pain. No fever. Denies focal neurological complaints. Given some fluids by EMS and feels much better.. - Immunization history:: Client reports receiving the 2nd dose of the Covid vaccine. - Family history:: not pertinent. - Social history:: Smoking status: Patient reports the use of cigarette tobacco products. - Hospitalizations: : No recent hospitalization is reported. ROS: 14:00 Constitutional: Negative for fever, chills, and weight loss, Eyes: Negative for injury, rn pain, redness, and discharge, ENT: Negative for injury, pain, and discharge, Neck: Negative for injury, pain, and swelling, Cardiovascular: Negative for chest pain, palpitations, and edema, Respiratory: Negative for shortness of breath, cough, wheezing, and pleuritic chest pain, Abdomen/GI: Negative for abdominal pain, nausea, vomiting, diarrhea, and constipation, Back: Negative for injury and pain, : Negative for injury, bleeding, discharge, and swelling, MS/Extremity: Negative for injury and deformity, Skin: Negative for injury, rash, and discoloration, Neuro: Negative for headache, numbness, tingling, and seizure. Exam: 14:00 Constitutional: This is a well developed, well nourished patient who is awake, alert, rn and in no acute distress. Seems upset and frustrated Head/Face: Normocephalic, atraumatic. Eyes: Periorbital areas with no swelling, redness, or edema. Cardiovascular: Bradycardic, regular. No pulse deficits. Respiratory: No increased work of breathing, no retractions or nasal flaring. Abdomen/GI: Soft, non-tender Skin: Warm, dry MS/ Extremity: Pulses equal, no cyanosis. Neuro: Awake and alert, GCS 15, oriented to person, place, time, and situation. Cranial nerves II-XII grossly intact. Motor strength 5/5 in all extremities. Sensory grossly intact. Cerebellar exam normal. 14:16 ECG was reviewed by the Attending Physician. rn Vital Signs: 13:21 BP 114 / 59; Pulse 56; Resp 17; Temp 97.8(O); Pulse Ox 99% on R/A; Weight 98.88 kg; [facility] Height 6 ft. 1 in. (185.42 cm); Pain 0/10; 14:30 BP 119 / 59; Pulse 74; Resp 18; Temp 97.8; Pulse Ox 100% ; Pain 0/10; [facility] 15:32 BP 125 / 80; Pulse 77; Resp 18; Pulse Ox 100% ; Pain 0/10; [facility] 13:21 Body Mass Index 28.76 (98.88 kg, 185.42 cm) [facility] MDM: 13:11 Patient medically screened. rn 15:23 Differential diagnosis: cardiac arrhythmia, generalized weakness, hyperventilation, rn hypovolemia, idiopathic dizziness, near-syncope, Anxiety, dehydration. Data reviewed: vital signs, nurses notes, lab test result(s), EKG, and as a result, I will discharge patient. Data interpreted: Pulse oximetry: on room air is 100 %. Interpretation: normal. Test interpretation: by ED physician or midlevel provider:. Counseling: I had a detailed discussion with the patient and/or guardian regarding: the historical points, exam findings, and any diagnostic results supporting the discharge/admit diagnosis, lab results, radiology results, the need for outpatient follow up, to return to the emergency department if symptoms worsen or persist or if there are any questions or concerns that arise at home. Response to treatment: the patient's symptoms have markedly improved after treatment, the patient's condition has returned to base line, the patient is now symptom free, patient is well hydrated. and as a result, I will discharge patient. Special discussion: I discussed with the patient/guardian in detail that at this point there is no indication for admission to the hospital. It is understood, however, that if the symptoms persist or worsen the patient needs to return immediately for re-evaluation. 08/13 13:18 Order name: CBC with Diff; Complete Time: 14:22 rn 12 13:18 Order name: Basic Metabolic Panel; Complete Time: 14:22 rn 08/13 13:18 Order name: Procalcitonin; Complete Time: 15:23 rn 12 13:19 Order name: Troponin (emerg Dept Use Only) rn 08/13 13:19 Order name: BNP; Complete Time: 14:22 rn 05 13:18 Order name: EKG; Complete Time: 13:18 rn 05 13:20 Order name: Troponin (Emerg Dept Use Only); Complete Time: 14:22 EDMN 08/13 13:20 Order name: SARS-COV-2 RT PCR (Document "Date of Onset" if Symptomatic) rn 08/13 13:59 Order name: COVID-19/FLU A+B; Complete Time: 14:55 EDMN 08/13 14:33 Order name: Urine Dipstick-Ancillary; Complete Time: 14:55 EDMS 05 13:18 Order name: IV Start; Complete Time: 13:20 rn 1205 13:18 Order name: Urine Dipstick-Ancillary (obtain specimen); Complete Time: 15:15 rn 12 13:18 Order name: EKG - Nurse/Tech; Complete Time: 13:20 rn 1205 13:19 Order name: Glucose Level; Complete Time: 13:33 rn EC:16 Rate is 63 beats/min. Rhythm is regular. QRS [place] is Normal. QT interval is normal. T rn waves are Normal. No ST changes noted. Clinical impression: No evidence of ischemia and Paced rhythm. Interpreted by me. Reviewed by me. Administered Medications: 14:45 Drug: NS 0.9% 1000 ml Route: IV; Rate: 1000 ml; Site: right antecubital; [facility] Disposition Summary: 08/13/21 15:24 Discharge Ordered Location: Home rn Problem: new rn Symptoms: have improved rn Condition: Stable rn Diagnosis - Dizziness and giddiness rn Followup: rn - With: Private Physician - When: As needed - Reason: Recheck today's complaints, Re-evaluation by your physician Discharge Instructions: - Discharge Summary Sheet rn - Dizziness rn Forms: - Medication Reconciliation Form rn - Thank You Letter rn - Antibiotic pattern room attendant - Prescription Opioid Use rn Signatures: Dispatcher [employer] EDMS Sukhwinder Zuluaga MD MD rn Hastedt, Jennifer, RN RN [facility] Corrections: (The following items were deleted from the chart) 13:59 13:21 SARS-COV-2 RT PCR ordered. EDMN EDMN 13:59 13:21 Influenza Screen (A \\T\\ B)+BA.LAB.BRZ ordered. [facility] 15:04 13:35 PMHx: Schizophrenia; [place] [id number] 15:04 13:35 PMHx: Pacemaker; [place] [id number] 15:04 13:35 PMHx: diabetes mellitus; [place] [id number]
[2021-08-13 15:42] VITALS: TEMP 97.8
[2021-08-13 15:44] VITALS: O2SAT 100
[2021-08-13 15:45] VITALS: BP 125/80
== END 2021-08-13 15:34 | disposition home or self-care (01) ==
LOC: ER 13:10
DX: R42 Dizziness and giddiness (principal); Z20.822 Contact with and (suspected) exposure to COVID-19; Z72.0 Tobacco use
CPT/HCPCS: 93005; 85025; 80048; 36415; 81003; 84484; 84145; 83880; 0240U; 99284; J7030

== ENCOUNTER 2021-11-22 17:08 | Emergency (ER) | payer OTHER ==
--- OUTSIDE RECORDS SUMMARY | 2021-11-22 17:23 | XMS REPORT | Continuity of Care Document ---
:1960 Author Organization [facility] t Address [address] [place] [address] Care Team Providers Name Role Phone Luana MORALES Primary Care Physician Petra Attending Clinician Unavailable Luana MORALES Attending Clinician Lamar EVANGELISTA Attending Clinician Unavailable Rome LEIJA, G Attending Clinician ALTAMIRANO Attending Clinician Unavailable LUANA Attending Clinician Unavailable SHADE EDWARDS Attending Clinician Unavailable Nurse, Pob Immunization Attending Clinician Unavailable Shade Edwards DO Attending Clinician Eleazar SHEEHAN. Attending Clinician Unavailable 2, Lab Attending Clinician Unavailable Radha LEONARDO Attending Clinician Unavailable Aj MORALES Attending Clinician Melisa Burnett MD Attending Clinician Bebeto MORALES Attending Clinician YARITZA Attending Clinician Unavailable [place] INSTALLATION SUPERINTENDENT, F Attending Clinician TRAVIS SOARES Attending Clinician Unavailable Provider, Urgent Care Attending Clinician Unavailable Rodger GREGORIO, Travis Attending Clinician Sanju BASS Attending Clinician Unavailable Neal LEONARDO, L Attending Clinician Unavailable Lo FULLERMargarita Attending Clinician AJ Attending Clinician Unavailable See JANE, J Attending Clinician Pob, Lab Main Attending Clinician Unavailable Camille MORALES, C Attending Clinician Doctor Unassigned, Name Attending Clinician Unavailable King ANDREW, C Attending Clinician Lamar EVANGELISTA Admitting Clinician Unavailable Bebeto MORALES Admitting Clinician Payers Payer Name Policy Type Policy Number Effective Date Expiration Date S sharmin MEDICARE PART A [id number] 2002 \\T\\ B 00:00:00 MEDICAID OF [place] [id number] 2020 00:00:00 [employer] MEDICARE [id number] 2019 00:00:00 [employer] [id number] 2019 [place] 00:00:00 [employer] GERALDO [id number] 2019 PLUS CHOICE 00:00:00 Problems Condition Condition Condition Status Onset Resolution Last Treating Co mments Source Name Details Category Date Date Treatment Clinician Date Hypotensio Hypotensio Disease Active U nivers n n 3-15 ity of 00:00: [address] Fall at Fall at Disease Active Univers home, home, 3-03 ity of sequela sequela 00:00: [address] Injury of Injury of Disease Active Uni vers head, head, 3-03 ity of sequela sequela 00:00: [place] [facility] Hypovolemi Hypovolemi Disease Active U nivers a a 1-26 ity of 00:00: [address] Orthostati Orthostati Disease Active U nivers c c 1-25 [place] hypotensio [place] [facility] Disease Active 2019-09 Unive rs discharge discharge 2-01 it[place] follow[place] Essential Essential Disease Active 2019-09 Uni vers hypertensi hypertensi 2-01 it y of on on 00:00: [place] [facility] Cigarette Cigarette Disease Active 2019-09 Uni vers nicotine nicotine 2- it[place] of dependence dependence [place] without 00 Medical complicati complicati Br anch on on Hyperchole Hyperchole Disease Active U nivers sterolemia sterolemia 5-05 it y of 00:00: [place] [facility] Hypothyroi Hypothyroi Disease Active 2019- U nivers dism, dism, 5-05 ity of unspecifie unspecifie [place] type d type 00 [facility] Diabetes Diabetes Disease Active Unive rs mellitus mellitus 5-05 ity of type 1.5 type 1.5 00:00: [place] [facility] Need for Need for Disease Active 2018-09 Unive rs 23-polyval 23-polyval 0- it y of ent ent 00:00: [place] [...] Uni vers 6-08 ity of 00:00: [place] 00 Medical Branch 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 Schizophre Schizophre Disease Active U nivers troy, troy, 424 ity of unspecifie unspecifie [place] d type 00 [facility] Allergies, Adverse Reactions, Alerts Allergy Allergy Status Severity Reaction(s) Onset Inactive Treating Comm ents Source Name Type Date Date Clinician NO KNOWN Drug Active Univers ALLERGIE Class ity of S [facility] Social History Social Habit Start Date Stop Date Quantity Comments Source History of tobacco Cigarette Smoker University of use [facility] Exposure to Not sure University of SARS-CoV-2 (event) [facility] Alcohol intake 2021-07-30 2021-07-30 0 /d University of 00:00:00 00:00:00 [facility] Tobacco Comment 2020-11-21 2020-11-21 1 pk per day Univers ity of 00:00:00 00:00:00 [facility] Cigarettes smoked 2014-12-31 2014-12-31 Univers ity of current (pack per 00:00:00 00:00:00 ) - Reported Branch Cigarette 2014-12-31 2014-12-31 University of pack-years 00:00:00 00:00:00 [facility] Tobacco use and 2014-12-31 2014-12-31 Never used Universit y of exposure 00:00:00 00:00:00 [facility] Sex [birth year] Universit y of 00:00:00 00:00:00 [facility] Smoking Status Start Date Stop Date Source Current every day smoker 2014-12-31 00:00:00 Uni versity of [facility] Medications Ordered Filled Start Stop Current Ordering Indication Dosage Frequency Signature Comments Components Source Medication Medication Date Date Medication? Clinician (SIG) Name Name LISINOPRIL 2020-09 Yes TAKE ONE Uni vers 10 mg 2-01 TABLET BY ity of tablet 00:00: MOUTH [place] DAILY [facility] Branch LISINOPRIL 2020-09 Yes TAKE ONE Uni vers 10 mg 2-01 TABLET BY ity of tablet 00:00: MOUTH [place] DAILY [facility] Branch prazosin 2 2020-09 Yes Univers mg capsule 0-13 ity of 00:00: [place] [facility] prazosin 2 2020-09 Yes Univers mg capsule 0-13 ity of 00:00: [place] [facility] prazosin 2 2020-09 Yes Univers mg capsule 0-13 ity of 00:00: [place] [facility] carBAMazepi 2020-09 Yes Univer s ne 200 mg 0-01 ity of tablet 00:00: [place] [facility] FLUoxetine 1 Yes Univers 40 mg 0-01 ity of capsule 00:00: [place] [facility] carBAMazepi 2020-1 Yes Univer s ne 200 mg 0-01 ity of tablet 00:00: [place] [facility] FLUoxetine 2020-1 Yes Univers 40 mg 0-01 ity of capsule 00:00: [place] [facility] carBAMazepi 1 Yes Univer s ne 200 mg 0-01 ity of tablet 00:00: [place] [facility] FLUoxetine 2020-1 Yes Univers 40 mg 0-01 ity of capsule 00:00: [place] [facility] ziprasidone 2020-2020- No Unive rs 80 mg 0-01 11-21 ity of capsule 00:00: 00:00 [place] 00 :00 Medical Branch lisinopriL 2020-0 Yes Univers 10 mg 9-22 ity of tablet 00:00: [place] 00 Medical Branch lisinopriL 2020-0 2020- No Univer s 10 mg 05-31 ity of tablet 00:00: 00:00 [place] 00 :00 Medical Branch levothyroxi 0 Yes 25ug Take 1 Univ ers ne 25 mcg 7-02 tablet by ity o f tablet 00:00: mouth [place] 00 every Medical morning. Branch midodrine Yes [id number] Take 1 Un [place] 2.5 mg 7-02 tablet by ity of tablet 00:00: mouth [place] 00 daily PRN Medical if BP Branch <80/60. glipiZIDE 5 Yes [id number] 5mg Take 1 Univers mg tablet 7-02 tablet by ity o f 00:00: mouth [place] 00 daily. Medical Branch levothyroxi Yes 25ug Take 1 Univ ers ne 25 mcg 7-02 tablet by ity o f tablet 00:00: mouth [place] 00 every Medical morning. Branch midodrine Yes [id number] Take 1 Un [place] 2.5 mg 7-02 tablet by ity of tablet 00:00: mouth [place] 00 daily PRN Medical if BP Branch <80/60. glipiZIDE 5 Yes [id number] 5mg Take 1 Univers mg tablet 7-02 tablet by ity o f 00:00: mouth [place] 00 daily. Medical Branch levothyroxi Yes 25ug Take 1 Univ ers ne 25 mcg 7-02 tablet by ity o f tablet 00:00: mouth [place] 00 every Medical morning. Branch midodrine Yes [id number] Take 1 Un [place] 2.5 mg 7-02 tablet by ity of tablet 00:00: mouth [place] 00 daily PRN Medical if BP Branch <80/60. glipiZIDE 5 Yes [id number] 5mg Take 1 Univers mg tablet 7-02 tablet by ity o f 00:00: mouth [place] 00 daily. Medical Branch levothyroxi Yes 25ug Take 1 Univ ers ne 25 mcg 7-02 tablet by ity o f tablet 00:00: mouth [place] 00 every Medical morning. Branch midodrine Yes [id number] Take 1 Un [place] 2.5 mg 7-02 tablet by ity of tablet 00:00: mouth [place] 00 daily PRN Medical if BP Branch <80/60. glipiZIDE 5 0 Yes [id number] 5mg Take 1 Univers mg tablet 7-02 tablet by ity o f 00:00: mouth [place] 00 daily. Medical Branch levothyroxi 0 Yes 25ug Take 1 Univ ers ne 25 mcg 7-02 tablet by ity o f tablet 00:00: mouth [place] 00 every Medical morning. Branch midodrine Yes [id number] Take 1 Un [place] 2.5 mg 7-02 tablet by ity of tablet 00:00: mouth [place] 00 daily PRN Medical if BP Branch <80/60. glipiZIDE 5 Yes [id number] 5mg Take 1 Univers mg tablet 7-02 tablet by ity o f 00:00: mouth [place] 00 daily. Medical Branch levothyroxi Yes 25ug Take 1 Univ ers ne 25 mcg 7-02 tablet by ity o f tablet 00:00: mouth [place] 00 every Medical morning. Branch midodrine Yes [id number] Take 1 Un [place] 2.5 mg 7-02 tablet by ity of tablet 00:00: mouth [place] 00 daily PRN Medical if BP Branch <80/60. levothyroxi Yes 25ug Take 1 Univ ers ne 25 mcg 7-02 tablet by ity o f tablet 00:00: mouth [place] 00 every Medical morning. Branch midodrine Yes [id number] Take 1 Un [place] 2.5 mg 7-02 tablet by ity of tablet 00:00: mouth [place] 00 daily PRN Medical if BP Branch <80/60. glipiZIDE 5 2020-0 Yes [id number] 5mg Take 1 Univers mg tablet 7-02 tablet by ity o f 00:00: mouth [place] 00 daily. Medical Branch glipiZIDE 5 2020-0 Yes [id number] 5mg Take 1 Univers mg tablet 7-02 tablet by ity o f 00:00: mouth [place] 00 daily. Medical Branch levothyroxi Yes 25ug Take 1 Univ ers ne 25 mcg 7-02 tablet by ity o f tablet 00:00: mouth [place] 00 every Medical morning. Branch midodrine 2020- Yes [id number] Take 1 Un [place] 2.5 mg 7-02 tablet by ity of tablet 00:00: mouth [place] 00 daily PRN Medical if BP Branch <80/60. glipiZIDE 5 0 Yes [id number] 5mg Take 1 Univers mg tablet 7-02 tablet by ity o f 00:00: mouth [place] 00 daily. Medical Branch levothyroxi 0 Yes 25ug Take 1 Univ ers ne 25 mcg 7-02 tablet by ity o f tablet 00:00: mouth [place] 00 every Medical morning. Branch midodrine Yes [id number] Take 1 Un [place] 2.5 mg 7-02 tablet by ity of tablet 00:00: mouth [place] 00 daily PRN Medical if BP Branch <80/60. levothyroxi Yes 25ug Take 1 Univ ers ne 25 mcg 7-02 tablet by ity o f tablet 00:00: mouth [place] 00 every Medical morning. Branch midodrine Yes [id number] Take 1 Un [place] 2.5 mg 7-02 tablet by ity of tablet 00:00: mouth [place] 00 daily PRN Medical if BP Branch <80/60. glipiZIDE 5 Yes [id number] 5mg Take 1 Univers mg tablet 7-02 tablet by ity o f 00:00: mouth [place] 00 daily. Medical Branch glipiZIDE 5 Yes [id number] 5mg Take 1 Univers mg tablet 7-02 tablet by ity o f 00:00: mouth [place] 00 daily. Medical Branch levothyroxi Yes 25ug Take 1 Univ ers ne 25 mcg 7-02 tablet by ity o f tablet 00:00: mouth [place] 00 every Medical morning. Branch midodrine Yes [id number] Take 1 Un [place] 2.5 mg 7-02 tablet by ity of tablet 00:00: mouth [place] 00 daily PRN Medical if BP Branch <80/60. glipiZIDE 5 Yes [id number] 5mg Take 1 Univers mg tablet 7-02 tablet by ity o f 00:00: mouth [place] 00 daily. Medical Branch levothyroxi Yes 25ug Take 1 Univ ers ne 25 mcg 7-02 tablet by ity o f tablet 00:00: mouth [place] 00 every Medical morning. Branch midodrine Yes [id number] Take 1 Un [place] 2.5 mg 7-02 tablet by ity of tablet 00:00: mouth [place] 00 daily PRN Medical if BP Branch <80/60. glipiZIDE 5 Yes [id number] 5mg Take 1 Univers mg tablet 7-02 tablet by ity o f 00:00: mouth 00 daily. Medical Branch levothyroxi Yes 25ug Take 1 Univ ers ne 25 mcg 7-02 tablet by ity o f tablet 00:00: mouth [place] 00 every Medical morning. Branch midodrine Yes [id number] Take 1 Un [place] 2.5 mg 7-02 tablet by ity of tablet 00:00: mouth [place] 00 daily PRN Medical if BP Branch <80/60. glipiZIDE 5 Yes [id number] 5mg Take 1 Univers mg tablet 7-02 tablet by ity o f 00:00: mouth daily. Medical Branch ATORVASTATI Yes [id number] TAKE ONE Univers N 40 mg 3-31 TABLET BY ity of tablet 00:00: MOUTH AT [place] BEDTIME Medical Branch FUROSEMIDE 2020-0 Yes [id number] TAKE ONE Univers 20 mg 3-31 TABLET BY ity of tablet 00:00: MOUTH [place] DAILY Medical Branch ATORVASTATI 2020- Yes [id number] TAKE ONE Univers N 40 mg 3-31 TABLET BY ity of tablet 00:00: MOUTH AT [place] BEDTIME Medical Branch ATORVASTATI Yes [id number] TAKE ONE Univers N 40 mg 3-31 TABLET BY ity of tablet 00:00: MOUTH AT [place] BEDTIME Medical Branch ATORVASTATI 0 Yes [id number] TAKE ONE Univers N 40 mg 3-31 TABLET BY ity of tablet 00:00: MOUTH AT [place] BEDTIME Medical Branch ATORVASTATI 2020- Yes [id number] TAKE ONE Univers N 40 mg 3-31 TABLET BY ity of tablet 00:00: [facility] [place] [facility] AT[facility] Yes [id number] TAKE ONE Univers N 40 mg 3-31 TABLET BY ity of tablet 00:00: MOUTH AT [place] BEDTIME Medical Branch ATORVASTATI 2021-0 Yes [id number] TAKE ONE Univers N 40 mg 3-31 TABLET BY ity of tablet 00:00: MOUTH AT [place] [facility] Yes [id number] TAKE ONE Univers N 40 mg 3-31 TABLET BY ity of tablet 00:00: MOUTH AT [place] [facility] Yes [id number] TAKE ONE Univers N 40 mg 3-31 TABLET BY ity of tablet 00:00: MOUTH AT [place] [facility] Yes [id number] TAKE ONE Univers N 40 mg 3-31 TABLET BY ity of tablet 00:00: MOUTH AT [place] [facility] Yes [id number] TAKE ONE Univers N 40 mg 3-31 TABLET BY ity of tablet 00:00: MOUTH AT [place] [facility] Yes [id number] TAKE ONE Univers N 40 mg 3-31 TABLET BY ity of tablet 00:00: MOUTH AT [place] [facility] Yes [id number] TAKE ONE Univers N 40 mg 3-31 TABLET BY ity of tablet 00:00: MOUTH AT [place] [facility] Yes [id number] TAKE ONE Univers N 40 mg 3-31 TABLET BY ity of tablet 00:00: MOUTH AT [place] [facility] Yes [id number] TAKE ONE Univers N 40 mg 3-31 TABLET BY ity of tablet 00:00: MOUTH AT [place] [facility] Yes [id number] TAKE ONE Univers N 40 mg 3-31 TABLET BY ity of tablet 00:00: MOUTH AT [place] [facility] Yes [id number] TAKE ONE Univers N 40 mg 3-31 TABLET BY ity of tablet 00:00: MOUTH AT [place] [facility] Yes [id number] TAKE ONE Univers N 40 mg 3-31 TABLET BY ity of tablet 00:00: MOUTH AT [address] [facility] [id number] TAKE ONE Univers N 40 mg 3-31 TABLET BY ity of tablet 00:00: MOUTH AT [address] FUROSEMIDE 2020- No [id number] TAKE ONE Univers 20 mg 3-31 - TABLET BY ity of tablet 00:00: 00:00 MOUTH [place] 00 :00 DAILY Medical Branch FUROSEMIDE 2020- No [id number] TAKE ONE Univers 20 mg 3-31 - TABLET BY ity of tablet 00:00: 00:00 MOUTH [place] 00 :00 DAILY Medical Branch midodrine Yes [id number] Take 1 Un [place] 2.5 mg 3-25 tablet by ity of tablet 00:00: mouth [place] 00 daily PRN Medical if BP Branch <80/60. midodrine Yes [id number] Take 1 Un [place] 2.5 mg 3-25 tablet by ity of tablet 00:00: mouth [place] 00 daily PRN Medical if BP Branch <80/60. midodrine Yes [id number] Take 1 Un [place] 2.5 mg 3-25 tablet by ity of tablet 00:00: mouth [place] 00 daily PRN Medical if BP Branch <80/60. midodrine Yes [id number] Take 1 Un [place] 2.5 mg 3-25 tablet by ity of tablet 00:00: mouth [place] 00 daily PRN Medical if BP Branch <80/60. midodrine Yes [id number] Take 1 Un [place] 2.5 mg 3-25 tablet by ity of tablet 00:00: mouth [place] 00 daily PRN Medical if BP Branch <80/60. midodrine Yes [id number] Take 1 Un [place] 2.5 mg 3-25 tablet by ity of tablet 00:00: mouth [place] 00 daily PRN Medical if BP Branch <80/60. midodrine Yes [id number] Take 1 Un [place] 2.5 mg 3-25 tablet by ity of tablet 00:00: mouth [place] 00 daily PRN Medical if BP Branch <80/60. midodrine Yes [id number] Take 1 Un [place] 2.5 mg 3-25 tablet by ity of tablet 00:00: mouth [place] 00 daily PRN Medical if BP Branch <80/60. midodrine Yes [id number] Take 1 Un [place] 2.5 mg 3-25 tablet by ity of tablet 00:00: mouth [place] 00 daily PRN Medical if BP Branch <80/60. midodrine Yes [id number] Take 1 Un [place] 2.5 mg 3-25 tablet by ity of tablet 00:00: mouth [place] 00 daily PRN Medical if BP Branch <80/60. midodrine 2020- No [id number] Take 1 U nivers 2.5 mg 3-25 07-02 tablet by ity of tablet 00:00: 00:00 mouth [place] 00 :00 daily PRN Medical if BP Branch <80/60. midodrine 2020- No [id number] Take 1 U nivers 2.5 mg 3-25 07-02 tablet by ity of tablet 00:00: 00:00 mouth [place] 00 :00 daily PRN Medical if BP Branch <80/60. prazosin 2020- No 2mg Take 2 mg Uni vers HCl 3-19 03-19 by mouth 2 ity of (PRAZOSIN 17:08: 00:00 ([facility]) [place] ORAL) 09 :00 times Medical daily as Branch needed for Insomnia. prazosin 2020- No 2mg Take 2 mg Uni vers HCl 3-19 03-19 by mouth 2 ity of (PRAZOSIN 17:08: 00:00 ([facility]) [place] ORAL) 09 :00 times Medical daily as Branch needed for Insomnia. nicotine Yes [id number] 1{patch Apply 1 Univers mg/24 hr 3-19 } Patch to ity of patch 00:00: [facility]() [place] 00 daily. Medical Apply 21mg Branch patch daily x 6 weeks; then apply 14mf patch daily x 2 weeks; then apply 7mg patch daily x 2 weeks. Stop smoking on initiation of therapy nicotine 7 Yes [id number] 1{patch Apply 1 Univers mg/24 hr 3-19 } Patch to ity of patch 00:00: area(s) [place] 00 every 24 Medical (twenty-fo Branch ur) hours. Apply 21mg patch daily x 6 weeks; then apply 14mf patch daily x 2 weeks; then apply 7mg patch daily x 2 weeks. Stop smoking on initiation of therapy nicotine 14 Yes [id number] 1{patch Apply 1 Univers mg/24 hr 3-19 } Patch to ity of patch 00:00: area(s) [place] 00 every 24 Medical (twenty-fo Branch ur) hours. Apply 21mg patch daily x 6 weeks; then apply 14mf patch daily x 2 weeks; then apply 7mg patch daily x 2 weeks. Stop smoking on initiation of therapy nicotine Yes [id number] 1{patch Apply 1 Univers mg/24 hr 3-19 } Patch to ity of patch 00:00: area(s) [place] 00 daily. Medical Apply 21mg Branch patch daily x 6 weeks; then apply 14mf patch daily x 2 weeks; then apply 7mg patch daily x 2 weeks. Stop smoking on initiation of therapy nicotine Yes [id number] 1{patch Apply 1 Univers mg/24 hr 3-19 } Patch to ity of patch 00:00: area(s) [place] 00 every 24 Medical (twenty-fo Branch ur) hours. Apply 21mg patch daily x 6 weeks; then apply 14mf patch daily x 2 weeks; then apply 7mg patch daily x 2 weeks. Stop smoking on initiation of therapy nicotine Yes [id number] 1{patch Apply 1 Univers mg/24 hr 3-19 } Patch to ity of patch 00:00: area(s) [place] 00 every 24 Medical (twenty-fo Branch ur) hours. Apply 21mg patch daily x 6 weeks; then apply 14mf patch daily x 2 weeks; then apply 7mg patch daily x 2 weeks. Stop smoking on initiation of therapy nicotine Yes [id number] 1{patch Apply 1 Univers mg/24 hr 3-19 } Patch to ity of patch 00:00: area(s) [place] 00 daily. Medical Apply 21mg Branch patch daily x 6 weeks; then apply 14mf patch daily x 2 weeks; then apply 7mg patch daily x 2 weeks. Stop smoking on initiation of therapy nicotine Yes [id number] 1{patch Apply 1 Univers mg/24 hr 3-19 } Patch to ity of patch 00:00: area(s) [place] 00 every 24 Medical (twenty-fo Branch ur) hours. Apply 21mg patch daily x 6 weeks; then apply 14mf patch daily x 2 weeks; then apply 7mg patch daily x 2 weeks. Stop smoking on initiation of therapy nicotine Yes [id number] 1{patch Apply 1 Univers mg/24 hr 3-19 } Patch to ity of patch 00:00: area(s) [place] 00 every 24 Medical (twenty-fo Branch ur) hours. Apply 21mg patch daily x 6 weeks; then apply 14mf patch daily x 2 weeks; then apply 7mg patch daily x 2 weeks. Stop smoking on initiation of therapy nicotine 2020- Yes [id number] 1{patch Apply 1 Univers mg/24 hr 3-19 } Patch to ity of patch 00:00: area(s) [place] 00 daily. Medical Apply 21mg Branch patch daily x 6 weeks; then apply 14mf patch daily x 2 weeks; then apply 7mg patch daily x 2 weeks. Stop smoking on initiation of therapy nicotine 2020- Yes [id number] 1{patch Apply 1 Univers mg/24 hr 3-19 } Patch to ity of patch 00:00: area(s) [place] 00 every 24 Medical (twenty-fo Branch ur) hours. Apply 21mg patch daily x 6 weeks; then apply 14mf patch daily x 2 weeks; then apply 7mg patch daily x 2 weeks. Stop smoking on initiation of therapy nicotine Yes [id number] 1{patch Apply 1 Univers mg/24 hr 3-19 } Patch to ity of patch 00:00: area(s) [place] 00 every 24 Medical (twenty-fo Branch ur) hours. Apply 21mg patch daily x 6 weeks; then apply 14mf patch daily x 2 weeks; then apply 7mg patch daily x 2 weeks. Stop smoking on initiation of therapy nicotine 2020- Yes [id number] 1{patch Apply 1 Univers mg/24 hr 3-19 } Patch to ity of patch 00:00: area(s) [place] 00 daily. Medical Apply 21mg Branch patch daily x 6 weeks; then apply 14mf patch daily x 2 weeks; then apply 7mg patch daily x 2 weeks. Stop smoking on initiation of therapy nicotine Yes [id number] 1{patch Apply 1 Univers mg/24 hr 3-19 } Patch to ity of patch 00:00: area(s) [place] 00 every 24 Medical (twenty-fo Branch ur) hours. Apply 21mg patch daily x 6 weeks; then apply 14mf patch daily x 2 weeks; then apply 7mg patch daily x 2 weeks. Stop smoking on initiation of therapy nicotine Yes [id number] 1{patch Apply 1 Univers mg/24 hr 3-19 } Patch to ity of patch 00:00: area(s) [place] 00 every 24 Medical (twenty-fo Branch ur) hours. Apply 21mg patch daily x 6 weeks; then apply 14mf patch daily x 2 weeks; then apply 7mg patch daily x 2 weeks. Stop smoking on initiation of therapy nicotine Yes [id number] 1{patch Apply 1 Univers mg/24 hr 3-19 } Patch to ity of patch 00:00: area(s) [place] 00 daily. Medical Apply 21mg Branch patch daily x 6 weeks; then apply 14mf patch daily x 2 weeks; then apply 7mg patch daily x 2 weeks. Stop smoking on initiation of therapy nicotine Yes [id number] 1{patch Apply 1 Univers mg/24 hr 3-19 } Patch to ity of patch 00:00: area(s) [place] 00 every 24 Medical (twenty-fo Branch ur) hours. Apply 21mg patch daily x 6 weeks; then apply 14mf patch daily x 2 weeks; then apply 7mg patch daily x 2 weeks. Stop smoking on initiation of therapy nicotine Yes [id number] 1{patch Apply 1 Univers mg/24 hr 3-19 } Patch to ity of patch 00:00: area(s) [place] 00 every 24 Medical (twenty-fo Branch ur) hours. Apply 21mg patch daily x 6 weeks; then apply 14mf patch daily x 2 weeks; then apply 7mg patch daily x 2 weeks. Stop smoking on initiation of therapy nicotine Yes [id number] 1{patch Apply 1 Univers mg/24 hr 3-19 } Patch to ity of patch 00:00: area(s) [place] 00 daily. Medical Apply 21mg Branch patch daily x 6 weeks; then apply 14mf patch daily x 2 weeks; then apply 7mg patch daily x 2 weeks. Stop smoking on initiation of therapy nicotine Yes [id number] 1{patch Apply 1 Univers mg/24 hr 3-19 } Patch to ity of patch 00:00: area(s) [place] 00 every 24 Medical (twenty-fo Branch ur) hours. Apply 21mg patch daily x 6 weeks; then apply 14mf patch daily x 2 weeks; then apply 7mg patch daily x 2 weeks. Stop smoking on initiation of therapy nicotine Yes [id number] 1{patch Apply 1 Univers mg/24 hr 3-19 } Patch to ity of patch 00:00: area(s) [place] 00 every 24 Medical (twenty-fo Branch ur) hours. Apply 21mg patch daily x 6 weeks; then apply 14mf patch daily x 2 weeks; then apply 7mg patch daily x 2 weeks. Stop smoking on initiation of therapy nicotine Yes [id number] 1{patch Apply 1 [facility] mg/24 hr 3-19 } Patch to ity of patch 00:00: area(s) [place] 00 daily. Medical Apply 21mg Branch patch daily x 6 weeks; then apply 14mf patch daily x 2 weeks; then apply 7mg patch daily x 2 weeks. Stop smoking on initiation of therapy nicotine Yes [id number] 1{patch Apply 1 [facility] mg/24 hr 3-19 } Patch to ity of patch 00:00: area(s) [place] 00 every 24 Medical (twenty-fo Branch ur) hours. Apply 21mg patch daily x 6 weeks; then apply 14mf patch daily x 2 weeks; then apply 7mg patch daily x 2 weeks. Stop smoking on initiation of therapy nicotine Yes [id number] 1{patch Apply 1 [facility] mg/24 hr 3-19 } Patch to ity of patch 00:00: area(s) [place] 00 every 24 Medical (twenty-fo Branch ur) hours. Apply 21mg patch daily x 6 weeks; then apply 14mf patch daily x 2 weeks; then apply 7mg patch daily x 2 weeks. Stop smoking on initiation of therapy nicotine Yes [id number] 1{patch Apply 1 [facility] mg/24 hr 3-19 } Patch to ity of patch 00:00: area(s) [place] 00 daily. Medical Apply 21mg Branch patch daily x 6 weeks; then apply 14mf patch daily x 2 weeks; then apply 7mg patch daily x 2 weeks. Stop smoking on initiation of therapy nicotine Yes [id number] 1{patch Apply 1 [facility] mg/24 hr 3-19 } Patch to ity of patch 00:00: area(s) [place] 00 every 24 Medical (twenty-fo Branch ur) hours. Apply 21mg patch daily x 6 weeks; then apply 14mf patch daily x 2 weeks; then apply 7mg patch daily x 2 weeks. Stop smoking on initiation of therapy nicotine Yes [id number] 1{patch Apply 1 [facility] mg/24 hr 3-19 } Patch to ity of patch 00:00: area(s) [place] 00 every 24 Medical (twenty-fo Branch ur) hours. Apply 21mg patch daily x 6 weeks; then apply 14mf patch daily x 2 weeks; then apply 7mg patch daily x 2 weeks. Stop smoking on initiation of therapy nicotine Yes [id number] 1{patch Apply 1 [facility] mg/24 hr 3-19 } Patch to ity of patch 00:00: area(s) [place] 00 daily. Medical Apply 21mg Branch patch daily x 6 weeks; then apply 14mf patch daily x 2 weeks; then apply 7mg patch daily x 2 weeks. Stop smoking on initiation of therapy nicotine Yes [id number] 1{patch Apply 1 [facility] mg/24 hr 3-19 } Patch to ity of patch 00:00: area(s) [place] 00 every 24 Medical (twenty-fo Branch ur) hours. Apply 21mg patch daily x 6 weeks; then apply 14mf patch daily x 2 weeks; then apply 7mg patch daily x 2 weeks. Stop smoking on initiation of therapy nicotine Yes [id number] 1{patch Apply 1 [facility] mg/24 hr 3-19 } Patch to ity of patch 00:00: area(s) [place] 00 every 24 Medical (twenty-fo Branch ur) hours. Apply 21mg patch daily x 6 weeks; then apply 14mf patch daily x 2 weeks; then apply 7mg patch daily x 2 weeks. Stop smoking on initiation of therapy nicotine Yes [id number] 1{patch Apply 1 [facility] mg/24 hr 3-19 } Patch to ity of patch 00:00: area(s) [place] 00 daily. Medical Apply 21mg Branch patch daily x 6 weeks; then apply 14mf patch daily x 2 weeks; then apply 7mg patch daily x 2 weeks. Stop smoking on initiation of therapy nicotine Yes [id number] 1{patch Apply 1 [facility] mg/24 hr 3-19 } Patch to ity of patch 00:00: area(s) [place] 00 every 24 Medical (twenty-fo Branch ur) hours. Apply 21mg patch daily x 6 weeks; then apply 14mf patch daily x 2 weeks; then apply 7mg patch daily x 2 weeks. Stop smoking on initiation of therapy nicotine Yes [id number] 1{patch Apply 1 [facility] mg/24 hr 3-19 } Patch to ity of patch 00:00: area(s) [place] 00 every 24 Medical (twenty-fo Branch ur) hours. Apply 21mg patch daily x 6 weeks; then apply 14mf patch daily x 2 weeks; then apply 7mg patch daily x 2 weeks. Stop smoking on initiation of therapy nicotine Yes [id number] 1{patch Apply 1 [facility] mg/24 hr 3-19 } Patch to ity of patch 00:00: area(s) [place] 00 every 24 Medical (twenty-fo Branch ur) hours. Apply 21mg patch daily x 6 weeks; then apply 14mf patch daily x 2 weeks; then apply 7mg patch daily x 2 weeks. Stop smoking on initiation of therapy nicotine Yes [id number] 1{patch Apply 1 [facility] mg/24 hr 3-19 } Patch to ity of patch 00:00: area(s) [place] 00 daily. Medical Apply 21mg Branch patch daily x 6 weeks; then apply 14mf patch daily x 2 weeks; then apply 7mg patch daily x 2 weeks. Stop smoking on initiation of therapy nicotine Yes [id number] 1{patch Apply 1 [facility] mg/24 hr 3-19 } Patch to ity of patch 00:00: area(s) [place] 00 every 24 Medical (twenty-fo Branch ur) hours. Apply 21mg patch daily x 6 weeks; then apply 14mf patch daily x 2 weeks; then apply 7mg patch daily x 2 weeks. Stop smoking on initiation of therapy nicotine 2020- Yes [id number] 1{patch Apply 1 [facility] mg/24 hr 3-19 } Patch to ity of patch 00:00: area(s) [place] 00 daily. Medical Apply 21mg Branch patch daily x 6 weeks; then apply 14mf patch daily x 2 weeks; then apply 7mg patch daily x 2 weeks. Stop smoking on initiation of therapy nicotine 2020- Yes [id number] 1{patch Apply 1 [facility] mg/24 hr 3-19 } Patch to ity of patch 00:00: area(s) [place] 00 every 24 Medical (twenty-fo Branch ur) hours. Apply 21mg patch daily x 6 weeks; then apply 14mf patch daily x 2 weeks; then apply 7mg patch daily x 2 weeks. Stop smoking on initiation of therapy nicotine 2020- Yes [id number] 1{patch Apply 1 [facility] mg/24 hr 3-19 } Patch to ity of patch 00:00: area(s) [place] 00 every 24 Medical (twenty-fo Branch ur) hours. Apply 21mg patch daily x 6 weeks; then apply 14mf patch daily x 2 weeks; then apply 7mg patch daily x 2 weeks. Stop smoking on initiation of therapy nicotine Yes [id number] 1{patch Apply 1 [facility] mg/24 hr 3-19 } Patch to ity of patch 00:00: area(s) [place] 00 daily. Medical Apply 21mg Branch patch daily x 6 weeks; then apply 14mf patch daily x 2 weeks; then apply 7mg patch daily x 2 weeks. Stop smoking on initiation of therapy nicotine Yes [id number] 1{patch Apply 1 [facility] mg/24 hr 3-19 } Patch to ity of patch 00:00: area(s) [place] 00 every 24 Medical (twenty-fo Branch ur) hours. Apply 21mg patch daily x 6 weeks; then apply 14mf patch daily x 2 weeks; then apply 7mg patch daily x 2 weeks. Stop smoking on initiation of therapy nicotine 2020- Yes [id number] 1{patch Apply 1 [facility] mg/24 hr 3-19 } Patch to ity of patch 00:00: area(s) [place] 00 every 24 Medical (twenty-fo Branch ur) hours. Apply 21mg patch daily x 6 weeks; then apply 14mf patch daily x 2 weeks; then apply 7mg patch daily x 2 weeks. Stop smoking on initiation of therapy nicotine Yes [id number] 1{patch Apply 1 [facility] mg/24 hr 3-19 } Patch to ity of patch 00:00: area(s) [place] 00 daily. Medical Apply 21mg Branch patch daily x 6 weeks; then apply 14mf patch daily x 2 weeks; then apply 7mg patch daily x 2 weeks. Stop smoking on initiation of therapy nicotine Yes [id number] 1{patch Apply 1 [facility] mg/24 hr 3-19 } Patch to ity of patch 00:00: area(s) [place] 00 every 24 Medical (twenty-fo Branch ur) hours. Apply 21mg patch daily x 6 weeks; then apply 14mf patch daily x 2 weeks; then apply 7mg patch daily x 2 weeks. Stop smoking on initiation of therapy nicotine Yes [id number] 1{patch Apply 1 [facility] mg/24 hr 3-19 } Patch to ity of patch 00:00: area(s) [place] 00 every 24 Medical (twenty-fo Branch ur) hours. Apply 21mg patch daily x 6 weeks; then apply 14mf patch daily x 2 weeks; then apply 7mg patch daily x 2 weeks. Stop smoking on initiation of therapy nicotine Yes [id number] 1{patch Apply 1 [facility] mg/24 hr 3-19 } Patch to ity of patch 00:00: area(s) [place] 00 daily. Medical Apply 21mg Branch patch daily x 6 weeks; then apply 14mf patch daily x 2 weeks; then apply 7mg patch daily x 2 weeks. Stop smoking on initiation of therapy nicotine Yes [id number] 1{patch Apply 1 [facility] mg/24 hr 3-19 } Patch to ity of patch 00:00: area(s) [place] 00 every 24 Medical (twenty-fo Branch ur) hours. Apply 21mg patch daily x 6 weeks; then apply 14mf patch daily x 2 weeks; then apply 7mg patch daily x 2 weeks. Stop smoking on initiation of therapy nicotine Yes [id number] 1{patch Apply 1 [facility] mg/24 hr 3-19 } Patch to ity of patch 00:00: area(s) [place] 00 every 24 Medical (twenty-fo Branch ur) hours. Apply 21mg patch daily x 6 weeks; then apply 14mf patch daily x 2 weeks; then apply 7mg patch daily x 2 weeks. Stop smoking on initiation of therapy nicotine Yes [id number] 1{patch Apply 1 [facility] mg/24 hr 3-19 } Patch to ity of patch 00:00: area(s) [place] 00 daily. Medical Apply 21mg Branch patch daily x 6 weeks; then apply 14mf patch daily x 2 weeks; then apply 7mg patch daily x 2 weeks. Stop smoking on initiation of therapy nicotine Yes [id number] 1{patch Apply 1 [facility] mg/24 hr 3-19 } Patch to ity of patch 00:00: area(s) [place] 00 every 24 Medical (twenty- Branch ur) hours. Apply 21mg patch daily x 6 weeks; then apply 14mf patch daily x 2 weeks; then apply 7mg patch daily x 2 weeks. Stop smoking on initiation of therapy nicotine Yes [id number] 1{patch Apply 1 [facility] mg/24 hr 3-19 } Patch to ity of patch 00:00: area(s) [place] 00 every 24 Medical (twenty- Branch ur) hours. Apply 21mg patch daily x 6 weeks; then apply 14mf patch daily x 2 weeks; then apply 7mg patch daily x 2 weeks. Stop smoking on initiation of therapy nicotine Yes [id number] 1{patch Apply 1 [facility] mg/24 hr 3-19 } Patch to ity of patch 00:00: area(s) [place] 00 daily. Medical Apply 21mg Branch patch daily x 6 weeks; then apply 14mf patch daily x 2 weeks; then apply 7mg patch daily x 2 weeks. Stop smoking on initiation of therapy nicotine Yes [id number] 1{patch Apply 1 [facility] mg/24 hr 3-19 } Patch to ity of patch 00:00: area(s) [place] 00 every 24 Medical ([facility] Branch ur) hours. Apply 21mg patch daily x 6 weeks; then apply 14mf patch daily x 2 weeks; then apply 7mg patch daily x 2 weeks. Stop smoking on initiation of therapy nicotine Yes [id number] 1{patch Apply 1 [facility] mg/24 hr 3-19 } Patch to ity of patch 00:00: area(s) [place] 00 every 24 Medical (twenty- Branch ur) hours. Apply 21mg patch daily x 6 weeks; then apply 14mf patch daily x 2 weeks; then apply 7mg patch daily x 2 weeks. Stop smoking on initiation of therapy nicotine Yes [id number] 1{patch Apply 1 [facility] mg/24 hr 3-19 } Patch to ity of patch 00:00: area(s) [place] 00 daily. Medical Apply 21mg Branch patch daily x 6 weeks; then apply 14mf patch daily x 2 weeks; then apply 7mg patch daily x 2 weeks. Stop smoking on initiation of therapy nicotine Yes [id number] 1{patch Apply 1 [facility] mg/24 hr 3-19 } Patch to ity of patch 00:00: area(s) [place] 00 every 24 Medical (twenty-fo Branch ur) hours. Apply 21mg patch daily x 6 weeks; then apply 14mf patch daily x 2 weeks; then apply 7mg patch daily x 2 weeks. Stop smoking on initiation of therapy nicotine Yes [id number] 1{patch Apply 1 [facility] mg/24 hr 3-19 } Patch to ity of patch 00:00: area(s) [place] 00 every 24 Medical (twenty-fo Branch ur) hours. Apply 21mg patch daily x 6 weeks; then apply 14mf patch daily x 2 weeks; then apply 7mg patch daily x 2 weeks. Stop smoking on initiation of therapy nicotine Yes [id number] 1{patch Apply 1 [facility] mg/24 hr 3-19 } Patch to ity of patch 00:00: area(s) [place] 00 daily. Medical Apply 21mg Branch patch daily x 6 weeks; then apply 14mf patch daily x 2 weeks; then apply 7mg patch daily x 2 weeks. Stop smoking on initiation of therapy nicotine Yes [id number] 1{patch Apply 1 [facility] mg/24 hr 3-19 } Patch to ity of patch 00:00: area(s) [place] 00 every 24 Medical (twenty-fo Branch ur) hours. Apply 21mg patch daily x 6 weeks; then apply 14mf patch daily x 2 weeks; then apply 7mg patch daily x 2 weeks. Stop smoking on initiation of therapy nicotine Yes [id number] 1{patch Apply 1 [facility] mg/24 hr 3-19 } Patch to ity of patch 00:00: area(s) [place] 00 every 24 Medical (twenty-fo Branch ur) hours. Apply 21mg patch daily x 6 weeks; then apply 14mf patch daily x 2 weeks; then apply 7mg patch daily x 2 weeks. Stop smoking on initiation of therapy nicotine Yes [id number] 1{patch Apply 1 [facility] mg/24 hr 3-19 } Patch to ity of patch 00:00: area(s) [place] 00 daily. Medical Apply 21mg Branch patch daily x 6 weeks; then apply 14mf patch daily x 2 weeks; then apply 7mg patch daily x 2 weeks. Stop smoking on initiation of therapy midodrine Yes [id number] 2.5mg Take 1 U nivers 2.5 mg 3-19 tablet by ity of tablet 00:00: [employer] [place] 00 daily. Medical Branch nicotine Yes [id number] 1{patch Apply 1 [facility] mg/24 hr 3-19 } Patch to ity of patch 00:00: area(s) [place] 00 every 24 Medical (twenty-fo Branch ur) hours. Apply 21mg patch daily x 6 weeks; then apply 14mf patch daily x 2 weeks; then apply 7mg patch daily x 2 weeks. Stop smoking on initiation of therapy nicotine Yes [id number] 1{patch Apply 1 [facility] mg/24 hr 3-19 } Patch to ity of patch 00:00: area(s) [place] 00 every 24 Medical (twenty-fo Branch ur) hours. Apply 21mg patch daily x 6 weeks; then apply 14mf patch daily x 2 weeks; then apply 7mg patch daily x 2 weeks. Stop smoking on initiation of therapy nicotine Yes [id number] 1{patch Apply 1 [facility] mg/24 hr 3-19 } Patch to ity of patch 00:00: area(s) [place] 00 daily. Medical Apply 21mg Branch patch daily x 6 weeks; then apply 14mf patch daily x 2 weeks; then apply 7mg patch daily x 2 weeks. Stop smoking on initiation of therapy nicotine Yes [id number] 1{patch Apply 1 [facility] mg/24 hr 3-19 } Patch to ity of patch 00:00: area(s) [place] 00 every 24 Medical (twenty-fo Branch ur) hours. Apply 21mg patch daily x 6 weeks; then apply 14mf patch daily x 2 weeks; then apply 7mg patch daily x 2 weeks. Stop smoking on initiation of therapy nicotine Yes [id number] 1{patch Apply 1 [facility] mg/24 hr 3-19 } Patch to ity of patch 00:00: area(s) [place] 00 every 24 Medical (twenty-fo Branch ur) hours. Apply 21mg patch daily x 6 weeks; then apply 14mf patch daily x 2 weeks; then apply 7mg patch daily x 2 weeks. Stop smoking on initiation of therapy nicotine Yes [id number] 1{patch Apply 1 [facility] mg/24 hr 3-19 } Patch to ity of patch 00:00: area(s) [place] 00 daily. Medical Apply 21mg Branch patch daily x 6 weeks; then apply 14mf patch daily x 2 weeks; then apply 7mg patch daily x 2 weeks. Stop smoking on initiation of therapy nicotine Yes [id number] 1{patch Apply 1 [facility] mg/24 hr 3-19 } Patch to ity of patch 00:00: area(s) [place] 00 every 24 Medical (twenty-fo Branch ur) hours. Apply 21mg patch daily x 6 weeks; then apply 14mf patch daily x 2 weeks; then apply 7mg patch daily x 2 weeks. Stop smoking on initiation of therapy nicotine Yes [id number] 1{patch Apply 1 [facility] mg/24 hr 3-19 } Patch to ity of patch 00:00: area(s) [place] 00 every 24 Medical (twenty- Branch ur) hours. Apply 21mg patch daily x 6 weeks; then apply 14mf patch daily x 2 weeks; then apply 7mg patch daily x 2 weeks. Stop smoking on initiation of therapy nicotine Yes [id number] 1{patch Apply 1 [facility] mg/24 hr 3-19 } Patch to ity of patch 00:00: area(s) [place] 00 daily. Medical Apply 21mg Branch patch daily x 6 weeks; then apply 14mf patch daily x 2 weeks; then apply 7mg patch daily x 2 weeks. Stop smoking on initiation of therapy nicotine Yes [id number] 1{patch Apply 1 [facility] mg/24 hr 3-19 } Patch to ity of patch 00:00: area(s) [place] 00 every 24 Medical (twenty-fo Branch ur) hours. Apply 21mg patch daily x 6 weeks; then apply 14mf patch daily x 2 weeks; then apply 7mg patch daily x 2 weeks. Stop smoking on initiation of therapy nicotine Yes [id number] 1{patch Apply 1 [facility] mg/24 hr 3-19 } Patch to ity of patch 00:00: area(s) [place] 00 every 24 Medical ([facility] ur) hours. Apply 21mg patch daily x 6 weeks; then apply 14mf patch daily x 2 weeks; then apply 7mg patch daily x 2 weeks. Stop smoking on initiation of therapy midodrine 2020- No [id number] 2.5mg Take 1 Univers 2.5 mg 3-19 03-25 tablet by ity of tablet 00:00: 00:00 mouth [place] 00 :00 daily. [facility] Branch midodrine 2020- No [id number] 2.5mg Take 1 Univers 2.5 mg 3-19 -25 tablet by ity of tablet 00:00: 00:00 mouth [place] 00 :00 daily. [facility] Branch atorvastati Yes 40mg 40 mg, Univ ers n (LIPITOR) 3-17 Oral, QHS, it y of tablet 40 02:00: First dose [place] mg 00 on [facility] 11/22/20 at [place] 2100, Until Discontinu ed, Routine prazosin Yes 2mg Take 2 mg Univ ers HCl 3-16 by mouth 2 ity of (PRAZOSIN 22:44: (two) [place] ORAL) 58 times Medical daily as Branch needed for Insomnia. prazosin 0 Yes 2mg Take 2 mg Univ ers HCl 3-16 by mouth 2 ity of (PRAZOSIN 22:44: (two) [place] ORAL) 58 times Medical daily as Branch needed for Insomnia. enoxaparin Yes 40mg 40 mg, Unive rs (LOVENOX) 3-16 Subcutaneo ity of injection 14:00: [place], DAILY, [place] 40 mg 00 First dose Medical on [facility] 11/22/20 at 0900, Until Discontinu ed, Routine ziprasidone Yes 60mg 60 mg, Univ ers (GEODON) 3-16 Oral, BID ity of capsule 60 13:00: MEALS, [place] mg 00 First dose Medical on [facility] 11/22/20 at 0800, Until Discontinu ed, Routine Sliding 2020-0 Yes Subcutaneo Univ ers Scale 3-16 us, AC, ity of Insulin-Reg 12:30: First dose [place] ular + Fsbg 00 on Tue Medica l Testing 11/22/20 at Branch 0730, Until Discontinu ed, Routine levothyroxi Yes 25ug 25 mcg, Uni vers ne -16 Oral, ity of (SYNTHROID) 11:00: QAM-0600, [place] tablet 25 00 First dose Medi arnel mcg on Tue Branch 11/22/20 at 0600, Until Discontinu ed, Routine FLUoxetine 2020- No 60mg Take 60 mg Univers (PROZAC) 40 11-2216 by mouth ity of mg capsule 09:55: 00:00 daily. [place] 26 :00 [facility] Iloperidone 2020- No 1{tbl} Take 1 Tab Univers (FANAPT) 6 11-22 by mouth 2 it y of mg Tab 09:55: 00:00 (two) [place] 26 :00 times Medical daily. Branch ondansetron Yes 4mg 4 mg, Slow Univers (ZOFRAN 3-16 IV Push, ity of (PF)) 04:43: Q6HPRN, [place] injection 4 39 Starting Medi arnel mg [facility] 11/21/20 at 2343, Until Discontinu ed, Routine, Nausea and Vomiting (N/V) traMADoL No 50mg 50 mg, Univer s (ULTRAM) 11-2218 Oral, ity of tablet 50 04:43: 04:42 Q8HPRN, [place] mg 31 :31 Starting Medical [facility] 11/21/20 at 2343, Until 11/23/20 at 2342, Routine, Pain (scale 4-6) acetaminoph Yes 650mg 650 mg, Un dorothea en 16 Oral, ity of (TYLENOL) 04:43: Q6HPRN, [place] tablet 650 30 Starting Medic al mg [facility] 11/21/20 at 2343, Until Discontinu ed, Routine, Pain (scale 1-3) NaCl 0.9% Yes 1000mL at 999 Univ ers (NS) IV 3-16 mL/hr, ity of infusion 02:00: Intravenou [place] 1,000 mL 00 s, Medical CONTINUOUS Branch , Starting [facility] 11/21/20 at 2100, Until Discontinu ed, Routine [...] ONCE, 1 [place] (MECLIZINE) 00 :00 dose, Sat Med ical ) tablet 25 11/09/20 at [place] mg 1330, SARIAH NaCl 0.9% 2020- No 1000mL at 999 Uni vers (NS) bolus 11-09 03-03 mL/hr, ity of infusion 19:30: 19:18 1,000 mL, [place] as 1,000 mL 00 :00 IV Medical Piggyback, Branch ONCE, 1 dose, Sat11/09/20 at 1330, STAT Miscellaneo Yes [id number] I10 - U [employer] [facility] 11-09 Dispense ity o f Supply Kit 00:00: blood [place] 00 pressure Medical cuff (any Branch brand), take BP at home BID Miscellaneo Yes [id number] I10 - U [employer] [facility] 11-09 Dispense ity o f Supply Kit 00:00: blood [place] 00 pressure Medical cuff (any Branch brand), take BP at home BID Miscellaneo 2020-0 Yes [id number] I10 - U [employer] [facility] 11-09 Dispense ity o f Supply Kit 00:00: blood [place] 00 pressure Medical cuff (any Branch brand), take BP at home BID Miscellaneo 0 Yes [id number] I10 - U [employer] [facility] 11-09 Dispense ity o f Supply Kit 00:00: blood [place] 00 pressure Medical cuff (any Branch brand), take BP at home BID Miscellaneo 2020-0 Yes [id number] I10 - U [employer] [facility] 11-09 Dispense ity o f Supply Kit 00:00: blood [place] 00 pressure Medical cuff (any Branch brand), take BP at home BID Miscellaneo 2020-0 Yes [id number] I10 - U [employer] [facility] 3 Dispense ity o f Supply Kit 00:00: blood [place] 00 pressure Medical cuff (any Branch brand), take BP at home BID Miscellaneo 2020-0 Yes [id number] [facility] Kit 00:00: blood [place] 00 pressure Medical cuff (any Branch brand), take BP at home BID Miscellaneo 2020-0 Yes [id number] I10 - [facility] 3 Dispense ity o f Supply Kit 00:00: blood [place] 00 pressure Medical cuff (any Branch brand), take BP at home BID Miscellaneo 2020-0 Yes [id number] I10 - [facility] 11[facility] Dispense ity o f Supply Kit 00:00: blood [place] 00 pressure Medical cuff (any Branch brand), take BP at home BID Miscellaneo 2020-0 Yes [id number] I10 - [facility] 11[facility] Dispense ity o f Supply Kit 00:00: blood [place] 00 pressure Medical cuff (any Branch brand), take BP at home BID Miscellaneo 2020-0 Yes [id number] I10 - [facility] 3 Dispense ity o f Supply Kit 00:00: blood [place] 00 pressure Medical cuff (any Branch brand), take BP at home BID Miscellaneo 2020-0 Yes [id number] I10 - [facility] 11[facility] Dispense ity o f Supply Kit 00:00: blood [place] 00 pressure Medical cuff (any Branch brand), take BP at home BID Miscellaneo 2020-0 Yes [id number] I10 - [facility] 3 Dispense ity o f Supply Kit 00:00: blood [place] 00 pressure Medical cuff (any Branch brand), take BP at home BID Miscellaneo 2020-0 Yes [id number] I10 - [facility] 3 Dispense ity o f Supply Kit 00:00: blood [place] 00 pressure Medical cuff (any Branch brand), take BP at home BID Miscellaneo 2020-0 Yes [id number] I10 - [facility] 3- Dispense ity o f Supply Kit 00:00: blood [place] 00 pressure Medical cuff (any Branch brand), take BP at home BID Miscellaneo 2020-0 Yes [id number] I10 - U [employer] [facility] 3- Dispense ity o f Supply Kit 00:00: blood [place] 00 pressure Medical cuff (any Branch brand), take BP at home BID Miscellaneo 2020-0 Yes [id number] I10 - [facility] 3 Dispense ity o f Supply Kit 00:00: blood [place] 00 pressure Medical cuff (any Branch brand), take BP at home BID Miscellaneo 202-0 Yes [id number] I10 - [facility] 3 Dispense ity o f Supply Kit 00:00: blood [place] 00 pressure Medical cuff (any Branch brand), take BP at home BID Miscellaneo 2020-0 Yes [id number] I10 - U [facility] 3 Dispense ity o f Supply Kit 00:00: blood [place] 00 pressure Medical cuff (any Branch brand), take BP at home BID Miscellaneo 2020-0 Yes [id number] I10 - [facility] 3 Dispense ity o f Supply Kit 00:00: blood [place] 00 pressure Medical cuff (any Branch brand), take BP at home BID Miscellaneo 2020-0 Yes [id number] I10 - U [employer] [facility] 3 Dispense ity o f Supply Kit 00:00: blood [place] 00 pressure Medical cuff (any Branch brand), take BP at home BID Miscellaneo 2020-0 Yes [id number] I10 - U [employer] [facility] 3- Dispense ity o f Supply Kit 00:00: blood [place] 00 pressure Medical cuff (any Branch brand), take BP at home BID Miscellaneo 202-0 Yes [id number] I10 - U [employer] [facility] 3- Dispense ity o f Supply Kit 00:00: blood [place] 00 pressure Medical cuff (any Branch brand), take BP at home BID Miscellaneo 202-0 Yes [id number] I10 - U [employer] [facility] 3- Dispense ity o f Supply Kit 00:00: blood [place] 00 pressure Medical cuff (any Branch brand), take BP at home BID Miscellaneo 202-0 Yes [id number] I10 - U [employer] [facility] 11-09 Dispense ity o f Supply Kit 00:00: blood [place] 00 pressure Medical cuff (any Branch brand), take BP at home BID Miscellaneo 2020-0 Yes [id number] I10 - U nivers [facility] 11-09 Dispense ity o f Supply Kit 00:00: blood [place] 00 pressure Medical cuff (any Branch brand), take BP at home BID Miscellaneo 2020-0 Yes [id number] I10 - U nivers [facility] 11-09 Dispense ity o f Supply Kit 00:00: blood [place] 00 pressure Medical cuff (any Branch brand), take BP at home BID Miscellaneo 2020-0 Yes [id number] I10 - U nivers [facility] 11-09 Dispense ity o f Supply Kit 00:00: blood [place] pressure Medical cuff (any Branch brand), take BP at home BID Miscellaneo 2020-0 Yes [id number] I10 - U nivers [facility] 11-09 Dispense ity o f Supply Kit 00:00: blood [place] pressure Medical cuff (any Branch brand), take BP at home BID FLUoxetine 2020-0 Yes 60mg Take 60 mg U nivers (PROZAC) 40 2-24 by mouth ity of mg capsule 21:55: daily. [address] prazosin 0 Yes 2mg Take 2 mg Univ ers HCl 2-24 by mouth 2 ity of (PRAZOSIN 21:55: (two) [place] ORAL) 51 times Medical daily as Branch needed for Insomnia. FLUoxetine 0 Yes 60mg Take 60 mg U nivers (PROZAC) 40 2-24 by mouth ity of mg capsule 21:55: daily. [address] prazosin 0 Yes 2mg Take 2 mg Univ ers HCl 2-24 by mouth 2 ity of (PRAZOSIN 21:55: (two) [place] ORAL) 51 times Medical daily as Branch needed for Insomnia. FLUoxetine 2020-0 Yes 60mg Take 60 mg U nivers (PROZAC) 40 2-24 by mouth ity of mg capsule 21:55: daily. [address] prazosin 2020-0 Yes 2mg Take 2 mg Univ ers HCl 2-24 by mouth 2 ity of (PRAZOSIN 21:55: (two) [place] ORAL) 51 times Medical daily as Branch needed for Insomnia. FLUoxetine 0 Yes 60mg Take 60 mg U nivers (PROZAC) 40 2-24 by mouth ity of mg capsule 21:55: daily. [address] Branch prazosin 0 Yes 2mg Take 2 mg Univ ers HCl 2-24 by mouth 2 ity of (PRAZOSIN 21:55: (two) [place] ORAL) 51 times Medical daily as Branch needed for Insomnia. FLUoxetine 0 Yes 60mg Take 60 mg U nivers (PROZAC) 40 2-24 by mouth ity of mg capsule 21:55: daily. [address] prazosin 0 Yes 2mg Take 2 mg Univ ers HCl 2-24 by mouth 2 ity of (PRAZOSIN 21:55: (two) [place] ORAL) 51 times Medical daily as Branch needed for Insomnia. FLUoxetine 0 Yes 60mg Take 60 mg U nivers (PROZAC) 40 2-24 by mouth ity of mg capsule 21:55: daily. [address] prazosin 0 Yes 2mg Take 2 mg Univ ers HCl 2-24 by mouth 2 ity of (PRAZOSIN 21:55: (two) [place] ORAL) 51 times Medical daily as Branch needed for Insomnia. LEVOTHYROXI 0 Yes [id number] TAKE ONE Univers NE 25 mcg 2-23 TABLET BY ity o f tablet 00:00: MOUTH [place] 00 EVERY Medical MORNING Branch LEVOTHYROXI 2020-0 Yes [id number] TAKE ONE Univers NE 25 mcg 2-23 TABLET BY ity o f tablet 00:00: MOUTH [place] 00 EVERY Medical MORNING Branch LEVOTHYROXI 2020-0 Yes [id number] TAKE ONE Univers NE 25 mcg 2-23 TABLET BY ity o f tablet 00:00: MOUTH [place] 00 EVERY Medical MORNING Branch LEVOTHYROXI 2020-0 Yes [id number] TAKE ONE Univers NE 25 mcg 2-23 TABLET BY ity o f tablet 00:00: MOUTH [place] 00 EVERY Medical MORNING Branch LEVOTHYROXI 2020-0 Yes [id number] TAKE ONE Univers NE 25 mcg 2-23 TABLET BY ity o f tablet 00:00: MOUTH [place] 00 EVERY Medical MORNING Branch LEVOTHYROXI 2020-0 Yes [id number] TAKE ONE Univers NE 25 mcg 2-23 TABLET BY ity o f tablet 00:00: MOUTH [place] 00 EVERY Medical MORNING Branch LEVOTHYROXI 2021-0 Yes [id number] TAKE ONE Univers NE 25 mcg 2-23 TABLET BY ity o f tablet 00:00: MOUTH [place] 00 EVERY Medical MORNING Branch LEVOTHYROXI 1-0 Yes [id number] TAKE ONE Univers NE 25 mcg 2-23 TABLET BY ity o f tablet 00:00: MOUTH [place] 00 EVERY Medical MORNING Branch LEVOTHYROXI 1-0 Yes [id number] TAKE ONE Univers NE 25 mcg 2-23 TABLET BY ity o f tablet 00:00: MOUTH [place] 00 EVERY Medical MORNING Branch LEVOTHYROXI 1-0 Yes [id number] TAKE ONE Univers NE 25 mcg 2-23 TABLET BY ity o f tablet 00:00: MOUTH [place] 00 EVERY Medical MORNING Branch LEVOTHYROXI 1-0 Yes [id number] TAKE ONE Univers NE 25 mcg 2-23 TABLET BY ity o f tablet 00:00: MOUTH [place] 00 EVERY Medical MORNING Branch LEVOTHYROXI 1-0 Yes [id number] TAKE ONE Univers NE 25 mcg 2-23 TABLET BY ity o f tablet 00:00: MOUTH [place] 00 EVERY Medical MORNING Branch LEVOTHYROXI 1-0 Yes [id number] TAKE ONE Univers NE 25 mcg 2-23 TABLET BY ity o f tablet 00:00: MOUTH [place] 00 EVERY Medical MORNING Branch LEVOTHYROXI 1-0 Yes [id number] TAKE ONE Univers NE 25 mcg 2-23 TABLET BY ity o f tablet 00:00: MOUTH [place] 00 EVERY Medical MORNING Branch LEVOTHYROXI 1-0 Yes [id number] TAKE ONE Univers NE 25 mcg 2-23 TABLET BY ity o f tablet 00:00: MOUTH [place] 00 EVERY Medical MORNING Branch LEVOTHYROXI 2021-0 Yes [id number] TAKE ONE Univers NE 25 mcg 2-23 TABLET BY ity o f tablet 00:00: MOUTH [place] 00 EVERY Medical MORNING Branch LEVOTHYROXI 1-0 Yes [id number] TAKE ONE Univers NE 25 mcg 2-23 TABLET BY ity o f tablet 00:00: MOUTH [place] 00 EVERY Medical MORNING Branch LEVOTHYROXI 1-0 Yes [id number] TAKE ONE Univers NE 25 mcg 2-23 TABLET BY ity o f tablet 00:00: MOUTH [place] 00 EVERY Medical MORNING Branch LEVOTHYROXI 1-0 Yes [id number] TAKE ONE Univers NE 25 mcg 2-23 TABLET BY ity o f tablet 00:00: MOUTH [place] 00 EVERY Medical MORNING Branch LEVOTHYROXI Yes [id number] TAKE ONE Univers NE 25 mcg 2-23 TABLET BY ity o f tablet 00:00: MOUTH [place] 00 EVERY Medical MORNING Branch LEVOTHYROXI 2020- No [id number] TAKE ONE Univers NE 25 mcg 2-23 -02 TABLET BY ity of tablet 00:00: 00:00 MOUTH [place] 00 :00 EVERY Medical MORNING Branch LEVOTHYROXI 2020- No [id number] TAKE ONE Univers NE 25 mcg 2-23 - TABLET BY ity of tablet 00:00: 00:00 MOUTH [place] 00 :00 EVERY Medical MORNING Branch FLUoxetine Yes 60mg Take 60 mg U nivers (PROZAC) 40 1-27 by mouth ity of mg capsule 21:52: daily. [address] Branch Iloperidone Yes 1{tbl} Take 1 Tab Univers (FANAPT) 6 1-27 by mouth 2 ity of mg Tab 21:52: (two) [place] 36 times Medical daily. Branch prazosin Yes 2mg Take 2 mg Univ ers HCl 1-27 by mouth 2 ity of (PRAZOSIN 21:52: (two) [place] ORAL) 36 times Medical daily as Branch needed for Insomnia. FLUoxetine Yes 60mg Take 60 mg U nivers (PROZAC) 40 1-27 by mouth ity of mg capsule 21:52: daily. [address] Branch Iloperidone Yes 1{tbl} Take 1 Tab [...] mouth ity of mg capsule 21:52: daily. [address] Branch Iloperidone Yes 1{tbl} Take 1 Tab Univers (FANAPT) 6 1-27 by mouth 2 ity of mg Tab 21:52: (two) [place] 36 times Medical daily. Branch prazosin 2021-0 Yes 2mg Take 2 mg Univ ers [...] [place] mg 00 First dose Medical on [facility] 10/04/20 at 2000, Until Discontinu ed, Routine ziprasidone 2020-0 Yes 60mg 60 mg, Univ ers (GEODON) - Oral, BID ity of capsule 60 23:00: MEALS, [place] mg 00 First dose Medical on [facility] 10/04/20 at 1700, Until Discontinu ed, Routine FLUoxetine 2020-0 Yes 60mg 60 mg, Unive rs (PROZAC) 1- Oral, ity of capsule 60 21:15: DAILY, [place] mg 00 First dose Medical on [facility] 10/04/20 at 1515, Until Discontinu ed, Routine busPIRone Yes 15mg 15 mg, Univer s (BUSPAR) 10-04 Oral, ity of tablet 15 21:00: TIDPRN, [place] mg 46 Starting Medical [facility] 10/04/20 at 1500, Until Discontinu ed, Routine, anxiety Sliding Yes Subcutaneo Univ ers Scale 10-04 us, AC, ity of Insulin-Reg 13:30: First dose [place] ular + Fsbg 00 on Sat Medica l Testing 10/04/20 at Branch 0730, Until Discontinu ed, Routine heparin Yes 5000U 5,000 Univers (porcine) 10-04 Units, ity of injection 12:00: Subcutaneo [place] 5,000 Units 00 us, Q8H, [facility] arnel First dose Branch on Sat10/04/20 at 0600, Until Discontinu ed, Routine NaCl 0.9% No 2000mL at 100 Uni vers (NS) IV 10-04- mL/hr, IV ity of infusion 11:45: 11:34 Infusion, [place] as 2,000 mL 00 :00 ONCE, 1 Medical dose, [facility] 10/04/20 at 0545, Routine glucagon Yes 1mg 1 mg, Univers (GLUCAGEN 10-04 Intramuscu ity of DIAGNOSTIC 08:13: lar, PRN, [place] KIT) 15 Starting Medical injection 1 Branch mg 10/04/20 at 0213, Until Discontinu ed, SARIAH, Blood Glucose < or = 70 mg/dL and patient is unable to swallow or has mental changes. dextrose 50 Yes 25mL 25 mL, Univ ers % in water 10-04 Slow IV ity of (D50W) 08:13: Push, PRN, [place] injection 15 Starting Medica l 25 mL [facility] 10/04/20 at 0213, Until Discontinu ed, SARIAH, Blood Glucose < or = 70 mg/dL and patient is unable to swallow or has mental status changes. ondansetron Yes 4mg 4 mg, Slow Univers (ZOFRAN 10-04 IV Push, ity of (PF)) 08:13: Q6HPRN, [place] injection 4 02 Starting Medi arnel mg [facility] 10/04/20 at 0213, Until Discontinu ed, Routine, Nausea and Vomiting (N/V) traMADoL 2020- No 50mg 50 mg, Univer s (ULTRAM) 10-04 Oral, ity of tablet 50 08:12: 08:11 Q8HPRN, [place] mg 57 :57 Starting Medical Tue Branch 10/04/20 at 0212, Until Pascale 10/06/20 at 021, Routine, Pain (scale 4-6) acetaminoph Yes 650mg 650 mg, Un dorothea en 10-04 Oral, ity of (TYLENOL) 08:12: Q6RN, [place] tablet 650 55 Starting Medic al mg [facility] 10/04/20 at 0212, Until Discontinu ed, Routine, Pain (scale 1-3) nicotine 0 Yes 1{patch 1 Patch, Un dorothea (NICODERM) [...] Branch dose, Sat10/03/20 at 1845, STAT FUROSEMIDE 0 Yes [id number] TAKE ONE Univers 20 mg 1-22 TABLET BY ity of tablet 00:00: MOUTH [place] DAILY Medical Branch FUROSEMIDE 2020-0 Yes [id number] TAKE ONE Univers 20 mg 1-22 TABLET BY ity of tablet 00:00: MOUTH [place] DAILY Medical Branch FUROSEMIDE 0 Yes [id number] TAKE ONE Univers 20 mg 1-22 TABLET BY ity of tablet 00:00: MOUTH [place] DAILY Medical Branch FUROSEMIDE 2020-0 Yes [id number] TAKE ONE Univers 20 mg 1-22 TABLET BY ity of tablet 00:00: MOUTH [place] DAILY Medical Branch FUROSEMIDE 0 Yes [id number] TAKE ONE Univers 20 mg 1-22 TABLET BY ity of tablet 00:00: MOUTH [place] 00 DAILY Medical Branch FUROSEMIDE 202-0 2020- No [id number] TAKE ONE Univers 20 mg 1-22 03-03 TABLET BY ity of tablet 00:00: 00:00 MOUTH [place] 00 :00 DAILY Medical Branch FUROSEMIDE 2020-0 2020- No [id number] TAKE ONE Univers 20 mg 1-22 -03 TABLET BY ity of tablet 00:00: 00:00 MOUTH [place] 00 :00 DAILY Medical Branch FUROSEMIDE 2020-0 2020- No [id number] TAKE ONE Univers 20 mg 1-22 -03 TABLET BY ity of tablet 00:00: 00:00 MOUTH [place] 00 :00 DAILY Medical Branch FUROSEMIDE 2020-0 2020- No [id number] TAKE ONE Univers 20 mg 1-22 -03 TABLET BY ity of tablet 00:00: 00:00 MOUTH [place] 00 :00 DAILY Medical Branch hydrOXYzine 2019- 2020- No 25mg 25 mg, Uni vers (ATARAX) 2-12 12-12 Oral, ity of tablet 25 21:45: 20:45 ONCE, 1 [place] mg 00 :00 dose, Sat Medical 08/20/20 Branch at 1545, SARIAH hydrOXYzine 2019- Yes [id number] 25mg Take 1 Univers 25 mg 2-12 tablet by ity of tablet 00:00: mouth [place] 00 every 8 Medical (eight) Branch hours as needed for Anxiety. hydrOXYzine 2019- Yes [id number] 25mg Take 1 Univers 25 mg 2-12 tablet by ity of tablet 00:00: mouth [place] 00 every 8 Medical (eight) Branch hours as needed for Anxiety. hydrOXYzine 2019- Yes [id number] 25mg Take 1 Univers 25 mg 2-12 tablet by ity of tablet 00:00: mouth [place] 00 every 8 Medical (eight) Branch hours as needed for Anxiety. hydrOXYzine 2019- Yes [id number] 25mg Take 1 Univers 25 mg 2-12 tablet by ity of tablet 00:00: mouth [place] 00 every 8 Medical (eight) Branch hours as needed for Anxiety. hydrOXYzine 2019- Yes [id number] 25mg Take 1 Univers 25 mg 2-12 tablet by ity of tablet 00:00: mouth [place] 00 every 8 Medical (eight) Branch hours as needed for Anxiety. hydrOXYzine 2019-09 Yes [id number] 25mg Take 1 Univers 25 mg 2-12 tablet by ity of tablet 00:00: mouth [place] 00 every 8 Medical (eight) Branch hours as needed for Anxiety. hydrOXYzine 2019-09 Yes [id number] 25mg Take 1 Univers 25 mg 2-12 tablet by ity of tablet 00:00: mouth [place] 00 every 8 Medical (eight) Branch hours as needed for Anxiety. hydrOXYzine 2019-09 Yes [id number] 25mg Take 1 Univers 25 mg 2-12 tablet by ity of tablet 00:00: mouth [place] 00 every 8 Medical (eight) Branch hours as needed for Anxiety. hydrOXYzine 2019-09 Yes [id number] 25mg Take 1 Univers 25 mg 2-12 tablet by ity of tablet 00:00: mouth [place] 00 every 8 Medical (eight) Branch hours as needed for Anxiety. hydrOXYzine 2019-09- No [id number] 25mg Take 1 Univers 25 mg 2-12 03-03 tablet by ity of tablet 00:00: 00:00 mouth [place] 00 :00 every 8 Medical (eight) Branch hours as needed for Anxiety. hydrOXYzine 2019-09- No [id number] 25mg Take 1 Univers 25 mg 2-12 03-03 tablet by ity of tablet 00:00: 00:00 mouth [place] 00 :00 every 8 Medical (eight) Branch hours as needed for Anxiety. hydrOXYzine 2019-09- No [id number] 25mg Take 1 Univers 25 mg 2-12 03-03 tablet by ity of tablet 00:00: 00:00 mouth [place] 00 :00 every 8 Medical (eight) Branch hours as needed for Anxiety. hydrOXYzine 2019-09- No [id number] 25mg Take 1 Univers 25 mg 2-12 03-03 tablet by ity of tablet 00:00: 00:00 mouth [place] 00 :00 every 8 Medical (eight) Branch hours as needed for Anxiety. lisinopriL 2019-09 Yes Univers 10 mg 2-02 ity of tablet 00:00: [place] 00 Medical Branch lisinopriL 2019- Yes Univers 10 mg 2-02 ity of tablet 00:00: [place] 00 Medical Branch lisinopriL 2019- Yes Univers 10 mg 2-02 ity of tablet 00:00: [place] 00 Medical Branch lisinopriL 2019- Yes Univers 10 mg 2-02 ity of tablet 00:00: [place] 00 Medical Branch lisinopriL 2019-09 Yes Univers 10 mg 2-02 ity of tablet 00:00: Medical Branch lisinopriL 2019-09 Yes Univers 10 mg 2-02 ity of tablet 00:00: [place] Medical Branch lisinopriL 2019-09- No Univer s 10 mg 2-02 03-16 ity of tablet 00:00: 00:00 [place] 00 :00 Medical Branch furosemide 2019-09- No Take by Un dorothea (LASIX 2- 12 mouth. ity of ORAL) 17:28: 00:00 [place] 14 :00 Medical Branch furosemide 2019-09- No Take by Un [facility]othea (LASIX 2-08-09 mouth. ity of ORAL) 17:28: 00:00 [place] [...] mouth ity of mg capsule 16:46: daily. [place] Medical Branch Iloperidone 2019-09 Yes 1{tbl} Take 1 Tab Univers (FANAPT) 6 2-01 by mouth 2 ity of mg Tab 16:46: (two) [place] 01 times Medical daily. Branch lisinopriL 2019-09 Yes [id number] 10mg Take 1 U nivers 10 mg 2-01 tablet by ity of tablet 00:00: mouth [place] 00 daily. Medical Branch metformin 2019-09 Yes [id number] 500mg Take 1 Univers ER 500 mg 2-01 tablet by ity o f 24 hr 00:00: mouth [place] tablet 00 daily with Medical breakfast. Branch nicotine 7 2019-09 Yes [id number] 1{patch Apply 1 Univers mg/24 hr 2-01 } Patch to ity of patch 00:00: area(s) [place] 00 every 24 Medical (twenty-fo Branch ur) hours. Apply 21mg patch daily x 6 weeks; then apply 14mg patch daily x 2 weeks; then apply 7mg patch daily x 2 weeks. Stop smoking on treatment onset nicotine 21 2019-09 Yes [id number] 1{patch Apply 1 Univers mg/24 hr 2-01 } Patch to ity of patch 00:00: area(s) [place] 00 every 24 Medical (twenty-fo Branch ur) hours. Apply 21mg patch daily x 6 weeks; then apply 14mg patch daily x 2 weeks; then apply 7mg patch daily x 2 weeks. Stop smoking on treatment onset nicotine 14 2019-09 Yes [id number] 1{patch Apply 1 Univers mg/24 hr 2-01 } Patch to ity of patch 00:00: area(s) [place] 00 every 24 Medical (twenty-fo Branch ur) hours. metformin 2019-09 Yes [id number] 500mg Take 1 Univers ER 500 mg 2-01 tablet by ity o f 24 hr 00:00: mouth [place] tablet 00 daily with Medical breakfast. Branch nicotine 7 2019-09 Yes [id number] 1{patch Apply 1 Univers mg/24 hr 2-01 } Patch to ity of patch 00:00: area(s) [place] 00 every 24 Medical ([facility] ur) hours. Apply 21mg patch daily x 6 weeks; then apply 14mg patch daily x 2 weeks; then apply 7mg patch daily x 2 weeks. Stop smoking on treatment onset nicotine 21 2019-09 Yes [id number] 1{patch Apply 1 Univers mg/24 hr 2-01 } Patch to ity of patch 00:00: area(s) [place] 00 every 24 Medical ([facility] ur) hours. Apply 21mg patch daily x 6 weeks; then apply 14mg patch daily x 2 weeks; then apply 7mg patch daily x 2 weeks. Stop smoking on treatment onset nicotine 14 2019-09 Yes [id number] 1{patch Apply 1 Univers mg/24 hr 2-01 } Patch to ity of patch 00:00: area(s) [place] 00 every 24 Medical ([facility] ur) hours. metformin 2019-09 Yes [id number] 500mg Take 1 Univers ER 500 mg 2-01 tablet by ity o f 24 hr 00:00: mouth [place] tablet 00 daily with Medical breakfast. Branch nicotine 7 2019-09 Yes [id number] 1{patch Apply 1 Univers mg/24 hr 2-01 } Patch to ity of patch 00:00: area(s) [place] 00 every 24 Medical ([facility] ur) hours. Apply 21mg patch daily x 6 weeks; then apply 14mg patch daily x 2 weeks; then apply 7mg patch daily x 2 weeks. Stop smoking on treatment onset nicotine 2019-09 Yes [id number] 1{patch Apply 1 Univers mg/24 hr 2-01 } Patch to ity of patch 00:00: area(s) [place] 00 every 24 Medical ([facility] ur) hours. Apply 21mg patch daily x 6 weeks; then apply 14mg patch daily x 2 weeks; then apply 7mg patch daily x 2 weeks. Stop smoking on treatment onset nicotine 14 2019-09 Yes [id number] 1{patch Apply 1 Univers mg/24 hr 2-01 } Patch to ity of patch 00:00: area(s) [place] 00 every 24 Medical ([facility] ur) hours. metformin 2019-09 Yes [id number] 500mg Take 1 Univers ER 500 mg 2-01 tablet by ity o f 24 hr 00:00: mouth [place] tablet 00 daily with Medical breakfast. Branch nicotine 7 2019-09 Yes [id number] 1{patch Apply 1 Univers mg/24 hr 2-01 } Patch to ity of patch 00:00: area(s) [place] 00 every 24 Medical (twenty- Branch ur) hours. Apply 21mg patch daily x 6 weeks; then apply 14mg patch daily x 2 weeks; then apply 7mg patch daily x 2 weeks. Stop smoking on treatment onset nicotine 21 2019-09 Yes [id number] 1{patch Apply 1 Univers mg/24 hr 2-01 } Patch to ity of patch 00:00: area(s) [place] 00 every 24 Medical (twenty- Branch ur) hours. Apply 21mg patch daily x 6 weeks; then apply 14mg patch daily x 2 weeks; then apply 7mg patch daily x 2 weeks. Stop smoking on treatment onset nicotine 14 2019-09 Yes [id number] 1{patch Apply 1 Univers mg/24 hr 2-01 } Patch to ity of patch 00:00: area(s) [place] 00 every 24 Medical ([facility] Branch ur) hours. metformin 2019-09 Yes [id number] 500mg Take 1 Univers ER 500 mg 2-01 tablet by ity o f 24 hr 00:00: mouth [place] tablet 00 daily with Medical breakfast. Branch nicotine 7 2019-09 Yes [id number] 1{patch Apply 1 Univers mg/24 hr 2-01 } Patch to ity of patch 00:00: area(s) [place] 00 every 24 Medical ([facility] Branch ur) hours. Apply 21mg patch daily x 6 weeks; then apply 14mg patch daily x 2 weeks; then apply 7mg patch daily x 2 weeks. Stop smoking on treatment onset nicotine 21 2019-09 Yes [id number] 1{patch Apply 1 Univers mg/24 hr 2-01 } Patch to ity of patch 00:00: area(s) [place] 00 every 24 Medical (twenty- Branch ur) hours. Apply 21mg patch daily x 6 weeks; then apply 14mg patch daily x 2 weeks; then apply 7mg patch daily x 2 weeks. Stop smoking on treatment onset nicotine 14 2019-09 Yes [id number] 1{patch Apply 1 Univers mg/24 hr 2-01 } Patch to ity of patch 00:00: area(s) [place] 00 every 24 Medical [facility] hours. metformin 2019-09 Yes [id number] 500mg Take 1 Univers ER 500 mg 2-01 tablet by ity o f 24 hr 00:00: mouth [place] tablet 00 daily with Medical breakfast. Branch nicotine 7 2019-09 Yes [id number] 1{patch Apply 1 Univers mg/24 hr 2-01 } Patch to ity of patch 00:00: area(s) [place] 00 every 24 Medical ([facility] ur) hours. Apply 21mg patch daily x 6 weeks; then apply 14mg patch daily x 2 weeks; then apply 7mg patch daily x 2 weeks. Stop smoking on treatment onset nicotine 2019-09 Yes [id number] 1{patch Apply 1 Univers mg/24 hr 2-01 } Patch to ity of patch 00:00: area(s) [place] 00 every 24 Medical ([facility] ur) hours. Apply 21mg patch daily x 6 weeks; then apply 14mg patch daily x 2 weeks; then apply 7mg patch daily x 2 weeks. Stop smoking on treatment onset nicotine 14 2019-09 Yes [id number] 1{patch Apply 1 Univers mg/24 hr 2-01 } Patch to ity of patch 00:00: area(s) [place] 00 every 24 Medical ([facility] Branch ur) hours. metformin 2019-09 Yes [id number] 500mg Take 1 Univers ER 500 mg 2-01 tablet by ity o f 24 hr 00:00: mouth [place] tablet 00 daily with Medical breakfast. Branch nicotine 7 2019-09 Yes [id number] 1{patch Apply 1 Univers mg/24 hr 2-01 } Patch to ity of patch 00:00: area(s) [place] 00 every 24 Medical ([facility] ur) hours. Apply 21mg patch daily x 6 weeks; then apply 14mg patch daily x 2 weeks; then apply 7mg patch daily x 2 weeks. Stop smoking on treatment onset nicotine 2019-09 Yes [id number] 1{patch Apply 1 Univers mg/24 hr 2-01 } Patch to ity of patch 00:00: area(s) [place] 00 every 24 Medical (twenty-[facility] ur) hours. Apply 21mg patch daily x 6 weeks; then apply 14mg patch daily x 2 weeks; then apply 7mg patch daily x 2 weeks. Stop smoking on treatment onset nicotine 14 2019-09 Yes [id number] 1{patch Apply 1 Univers mg/24 hr 2-01 } Patch to ity of patch 00:00: area(s) [place] 00 every 24 Medical ([facility] Branch ur) hours. metformin 2020- Yes [id number] 500mg Take 1 Univers ER 500 mg 2-01 tablet by ity o f 24 hr 00:00: mouth [place] tablet 00 daily with Medical breakfast. Branch nicotine 7 2019-09 Yes [id number] 1{patch Apply 1 Univers mg/24 hr 2-01 } Patch to ity of patch 00:00: area(s) [place] 00 every 24 Medical (twenty- Branch ur) hours. Apply 21mg patch daily x 6 weeks; then apply 14mg patch daily x 2 weeks; then apply 7mg patch daily x 2 weeks. Stop smoking on treatment onset nicotine 21 2019-09 Yes [id number] 1{patch Apply 1 Univers mg/24 hr 2-01 } Patch to ity of patch 00:00: area(s) [place] 00 every 24 Medical ([facility] Branch ur) hours. Apply 21mg patch daily x 6 weeks; then apply 14mg patch daily x 2 weeks; then apply 7mg patch daily x 2 weeks. Stop smoking on treatment onset nicotine 14 2019-09 Yes [id number] 1{patch Apply 1 Univers mg/24 hr 2-01 } Patch to ity of patch 00:00: area(s) [place] 00 every 24 Medical ([facility] Branch ur) hours. metformin 2019-09 Yes [id number] 500mg Take 1 Univers ER 500 mg 2-01 tablet by ity o f 24 hr 00:00: mouth [place] tablet 00 daily with Medical breakfast. Branch nicotine 7 2019-09 Yes [id number] 1{patch Apply 1 Univers mg/24 hr 2-01 } Patch to ity of patch 00:00: area(s) [place] 00 every 24 Medical ([facility] Branch ur) hours. Apply 21mg patch daily x 6 weeks; then apply 14mg patch daily x 2 weeks; then apply 7mg patch daily x 2 weeks. Stop smoking on treatment onset nicotine 21 2019-09 Yes [id number] 1{patch Apply 1 Univers mg/24 hr 2-01 } Patch to ity of patch 00:00: area(s) [place] 00 every 24 Medical ([facility] Branch ur) hours. Apply 21mg patch daily x 6 weeks; then apply 14mg patch daily x 2 weeks; then apply 7mg patch daily x 2 weeks. Stop smoking on treatment onset nicotine 14 2019-09 Yes [id number] 1{patch Apply 1 Univers mg/24 hr 2-01 } Patch to ity of patch 00:00: area(s) [place] 00 every 24 Medical (twenty-fo Branch ur) hours. metformin 2019-09 Yes [id number] 500mg Take 1 Univers ER 500 mg 2-01 tablet by ity o f 24 hr 00:00: mouth [place] tablet 00 daily with Medical breakfast. Branch nicotine 7 2019-09 Yes [id number] 1{patch Apply 1 Univers mg/24 hr 2-01 } Patch to ity of patch 00:00: area(s) [place] 00 every 24 Medical (twenty-fo Branch ur) hours. Apply 21mg patch daily x 6 weeks; then apply 14mg patch daily x 2 weeks; then apply 7mg patch daily x 2 weeks. Stop smoking on treatment onset nicotine 21 2019-09 Yes [id number] 1{patch Apply 1 Univers mg/24 hr 2-01 } Patch to ity of patch 00:00: area(s) [place] 00 every 24 Medical (twenty-fo Branch ur) hours. Apply 21mg patch daily x 6 weeks; then apply 14mg patch daily x 2 weeks; then apply 7mg patch daily x 2 weeks. Stop smoking on treatment onset nicotine 14 2019-09 Yes [id number] 1{patch Apply 1 Univers mg/24 hr 2-01 } Patch to ity of patch 00:00: area(s) [place] 00 every 24 Medical (twenty-fo Branch ur) hours. lisinopriL 2019-09 Yes [id number] 10mg Take 1 U nivers 10 mg 2-01 tablet by ity of tablet 00:00: mouth [place] 00 daily. Medical Branch metformin 2019-09 Yes [id number] 500mg Take 1 Univers ER 500 mg 2-01 tablet by ity o f 24 hr 00:00: mouth [place] tablet 00 daily with Medical breakfast. Branch nicotine 7 2019-09 Yes [id number] 1{patch Apply 1 Univers mg/24 hr 2-01 } Patch to ity of patch 00:00: area(s) [place] 00 every 24 Medical (twenty-fo Branch ur) hours. Apply 21mg patch daily x 6 weeks; then apply 14mg patch daily x 2 weeks; then apply 7mg patch daily x 2 weeks. Stop smoking on treatment onset nicotine 21 2019-09 Yes [id number] 1{patch Apply 1 Univers mg/24 hr 2-01 } Patch to ity of patch 00:00: area(s) [place] 00 every 24 Medical (twenty- Branch ur) hours. Apply 21mg patch daily x 6 weeks; then apply 14mg patch daily x 2 weeks; then apply 7mg patch daily x 2 weeks. Stop smoking on treatment onset nicotine 14 2019-09 Yes [id number] 1{patch Apply 1 [facility] mg/24 hr 2-01 } Patch to ity of patch 00:00: area(s) [place] 00 every 24 Medical (twenty-[facility] Branch ur) hours. lisinopriL 2019-09 Yes [id number] 10mg Take 1 U nivers 10 mg 2-01 tablet by ity of tablet 00:00: mouth [place] 00 daily. Medical Branch metformin 2019-09 Yes [id number] 500mg Take 1 [facility] ER 500 mg 2-01 tablet by ity o f 24 hr 00:00: mouth [place] tablet 00 daily with Medical breakfast. Branch nicotine 7 2019-09 Yes [id number] 1{patch Apply 1 [facility] mg/24 hr 2-01 } Patch to ity of patch 00:00: area(s) [place] 00 every 24 Medical (twenty- Branch ur) hours. Apply 21mg patch daily x 6 weeks; then apply 14mg patch daily x 2 weeks; then apply 7mg patch daily x 2 weeks. Stop smoking on treatment onset nicotine 21 2019-09 Yes [id number] 1{patch Apply 1 [facility] mg/24 hr 2-01 } Patch to ity of patch 00:00: area(s) [place] 00 every 24 Medical ([facility] Branch ur) hours. Apply 21mg patch daily x 6 weeks; then apply 14mg patch daily x 2 weeks; then apply 7mg patch daily x 2 weeks. Stop smoking on treatment onset nicotine 14 2019-09 Yes [id number] 1{patch Apply 1 [facility] mg/24 hr 2-01 } Patch to ity of patch 00:00: area(s) [place] 00 every 24 Medical (twenty- Branch ur) hours. lisinopriL 2019-09 Yes [id number] 10mg Take 1 U nivers 10 mg 2-01 tablet by ity of tablet 00:00: mouth [place] 00 daily. Medical Branch metformin 2019-09 Yes [id number] 500mg Take 1 [facility] ER 500 mg 2-01 tablet by ity o f 24 hr 00:00: mouth [place] tablet 00 daily with Medical breakfast. Branch nicotine 7 2019-09 Yes [id number] 1{patch Apply 1 [facility] mg/24 hr 2-01 } Patch to ity of patch 00:00: area(s) [place] 00 every 24 Medical (twenty-[facility] Branch ur) hours. Apply 21mg patch daily x 6 weeks; then apply 14mg patch daily x 2 weeks; then apply 7mg patch daily x 2 weeks. Stop smoking on treatment onset nicotine 21 2019-09 Yes [id number] 1{patch Apply 1 [facility] mg/24 hr 2-01 } Patch to ity of patch 00:00: area(s) [place] 00 every 24 Medical (twenty[facility] Branch ur) hours. Apply 21mg patch daily x 6 weeks; then apply 14mg patch daily x 2 weeks; then apply 7mg patch daily x 2 weeks. Stop smoking on treatment onset nicotine 14 2019-09 Yes [id number] 1{patch Apply 1 [facility] mg/24 hr 2-01 } Patch to ity of patch 00:00: area(s) [place] 00 every 24 Medical (twenty-[facility] Branch ur) hours. lisinopriL 2019-09 Yes [id number] 10mg Take 1 U nivers 10 mg 2-01 tablet by ity of tablet 00:00: mouth [place] 00 daily. Medical Branch metformin 2019-09 Yes [id number] 500mg Take 1 [facility] ER 500 mg 2-01 tablet by ity o f 24 hr 00:00: mouth [place] tablet 00 daily with Medical breakfast. Branch nicotine 7 2019-09 Yes [id number] 1{patch Apply 1 [facility] mg/24 hr 2-01 } Patch to ity of patch 00:00: area(s) [place] 00 every 24 Medical (twenty[facility] Branch ur) hours. Apply 21mg patch daily x 6 weeks; then apply 14mg patch daily x 2 weeks; then apply 7mg patch daily x 2 weeks. Stop smoking on treatment onset nicotine 21 2019-09 Yes [id number] 1{patch Apply 1 [facility] mg/24 hr 2-01 } Patch to ity of patch 00:00: area(s) [place] 00 every 24 Medical (twenty[facility] Branch ur) hours. Apply 21mg patch daily x 6 weeks; then apply 14mg patch daily x 2 weeks; then apply 7mg patch daily x 2 weeks. Stop smoking on treatment onset nicotine 14 2019-09 Yes [id number] 1{patch Apply 1 [facility] mg/24 hr 2-01 } Patch to ity of patch 00:00: area(s) [place] 00 every 24 Medical ([facility] Branch ur) hours. lisinopriL 2019-09 Yes [id number] 10mg Take 1 U nivers 10 mg 2-01 tablet by ity of tablet 00:00: mouth [place] 00 daily. Medical Branch metformin 2019-09 Yes [id number] 500mg Take 1 [facility] ER 500 mg 2-01 tablet by ity o f 24 hr 00:00: mouth [place] tablet 00 daily with Medical breakfast. Branch nicotine 7 2019-09 Yes [id number] 1{patch Apply 1 [facility] mg/24 hr 2-01 } Patch to ity of patch 00:00: area(s) [place] 00 every 24 Medical ([facility] Branch ur) hours. Apply 21mg patch daily x 6 weeks; then apply 14mg patch daily x 2 weeks; then apply 7mg patch daily x 2 weeks. Stop smoking on treatment onset nicotine 21 2019-09 Yes [id number] 1{patch Apply 1 [facility] mg/24 hr 2-01 } Patch to ity of patch 00:00: area(s) [place] 00 every 24 Medical ([facility] Branch ur) hours. Apply 21mg patch daily x 6 weeks; then apply 14mg patch daily x 2 weeks; then apply 7mg patch daily x 2 weeks. Stop smoking on treatment onset nicotine 14 2019-09 Yes [id number] 1{patch Apply 1 [facility] mg/24 hr 2-01 } Patch to ity of patch 00:00: area(s) [place] 00 every 24 Medical ([facility] ur) hours. lisinopriL 2019-09 Yes [id number] 10mg Take 1 U nivers 10 mg 2-01 tablet by ity of tablet 00:00: mouth [place] 00 daily. Medical Branch metformin 2019-09 Yes [id number] 500mg Take 1 [facility] ER 500 mg 2-01 tablet by ity o f 24 hr 00:00: mouth [place] tablet 00 daily with Medical breakfast. Branch nicotine 7 2019-09 Yes [id number] 1{patch Apply 1 [facility] mg/24 hr 2-01 } Patch to ity of patch 00:00: area(s) [place] 00 every 24 Medical ([facility] Branch ur) hours. Apply 21mg patch daily x 6 weeks; then apply 14mg patch daily x 2 weeks; then apply 7mg patch daily x 2 weeks. Stop smoking on treatment onset nicotine 21 2019-09 Yes [id number] 1{patch Apply 1 [facility] mg/24 hr 2-01 } Patch to ity of patch 00:00: area(s) [place] 00 every 24 Medical (twenty- Branch ur) hours. Apply 21mg patch daily x 6 weeks; then apply 14mg patch daily x 2 weeks; then apply 7mg patch daily x 2 weeks. Stop smoking on treatment onset nicotine 14 2019-09 Yes [id number] 1{patch Apply 1 [facility] mg/24 hr 2-01 } Patch to ity of patch 00:00: area(s) [place] 00 every 24 Medical (twenty- Branch ur) hours. lisinopriL 2019-09 Yes [id number] 10mg Take 1 [facility] nivers 10 mg 2-01 tablet by ity of tablet 00:00: mouth [place] 00 daily. Medical Branch metformin 2019-09 Yes [id number] 500mg Take 1 [facility] ER 500 mg 2-01 tablet by ity o f 24 hr 00:00: mouth [place] tablet 00 daily with Medical breakfast. Branch nicotine 7 2019-09 Yes [id number] 1{patch Apply 1 [facility] mg/24 hr 2-01 } Patch to ity of patch 00:00: area(s) [place] 00 every 24 [facility] hours. Apply 21mg patch daily x 6 weeks; then apply 14mg patch daily x 2 weeks; then apply 7mg patch daily x 2 weeks. Stop smoking on treatment onset nicotine 21 2019-09 Yes [id number] 1{patch Apply 1 [facility] mg/24 hr 2-01 } Patch to ity of patch 00:00: area(s) [place] 00 every 24 Medical (twenty- Branch ur) hours. Apply 21mg patch daily x 6 weeks; then apply 14mg patch daily x 2 weeks; then apply 7mg patch daily x 2 weeks. Stop smoking on treatment onset nicotine 14 2019-09 Yes [id number] 1{patch Apply 1 [facility] mg/24 hr 2-01 } Patch to ity of patch 00:00: area(s) [place] 00 every 24 [facility] hours. metformin 2019-09- No [id number] 500mg Take 1 [facility] ER 500 mg 2-01 03-16 tablet by ity of 24 hr 00:00: 00:00 mouth [place] tablet 00 :00 daily with Medical breakfast. Branch nicotine 7 2019-09- No [id number] 1{patch Apply 1 [facility] mg/24 hr 10-1016 } Patch to ity of patch 00:00: 00:00 area(s) [place] 00 :00 every 24 Medical (twenty[facility] Branch ur) hours. Apply 21mg patch daily x 6 weeks; then apply 14mg patch daily x 2 weeks; then apply 7mg patch daily x 2 weeks. Stop smoking on treatment onset nicotine 21 2019-09- No [id number] 1{patch Apply 1 [facility] mg/24 hr 10-1016 } Patch to ity of patch 00:00: 00:00 area(s) [place] 00 :00 every 24 Medical (twenty[facility] Branch ur) hours. Apply 21mg patch daily x 6 weeks; then apply 14mg patch daily x 2 weeks; then apply 7mg patch daily x 2 weeks. Stop smoking on treatment onset nicotine 14 2019-09- No [id number] 1{patch Apply 1 [facility] mg/24 hr 10-10 } Patch to ity of patch 00:00: 00:00 area(s) [place] 00 :00 every 24 Medical (twenty[facility] Branch ur) hours. lisinopriL 2019-09- No [id number] 10mg Take 1 [facility] 10 mg 10-10 tablet by ity of tablet 00:00: 00:00 mouth [place] 00 :00 daily. Medical Branch diazePAM 2019-09- No 5mg 5 mg, [facility] (VALIUM) 10-03 Oral, ity of tablet 5 mg 18:15: 06:14 [place]CE, 1 [place] :[place] dose, Wed Medical 08/03/20 Branch at 1215, SARIAH prazosin 2019-0 Yes Take by Unive rs HCl 9-07 mouth. ity of (PRAZOSIN 01:57: [place] ORAL) 53 Medical Branch furosemide 2019-0 Yes Take by [facility] vers (LASIX 9-07 mouth. ity of ORAL) 01:57: [place] 53 Medical Branch prazosin 2019-0 Yes Take by Unive rs HCl 9-07 mouth. ity of (PRAZOSIN 01:57: [place] ORAL) 53 Medical Branch furosemide 2019-0 Yes Take by [facility] vers (LASIX 9-07 mouth. ity of ORAL) 01:57: [address] prazosin 2020-0 Yes Take by Unive rs HCl 9-07 mouth. ity of (PRAZOSIN 01:57: [facility]) [address] [place] [address] furosemide 2020-0 Yes Take by [facility] vers (LASIX 9-07 mouth. ity of ORAL) 01:57: [address] NaCl 0.9% 2020-0 2020- No 1000mL at 999 Uni vers (NS) bolus 05-16- mL/hr, ity of infusion 00:45: 01:28 1,000 mL, [place] 1,000 mL 00 :00 IV Medical Piggyback, [place] ONCE, 1 dose, 05/15/20 at 1945, STAT NaCl 0.9% 2020-0 2020- No 1000mL at 999 Uni vers (NS) bolus 05-15- mL/hr, ity of infusion 23:00: 01:27 1,000 mL, [place] 1,000 mL 00 :00 IV Medical Infusion, [place] ONCE, 1 dose, 05/15/20 at 1800, SARIAH hydrOXYzine 2020-0 2020- No 25mg 25 mg, [facility] vers (ATARAX) 7- 07-14 Oral, ity of tablet 25 02:15: 01:06 ONCE, 1 [place] :[place] dose, [facility] 03/21/20 at Branch 2115, SARIA[place] hydrOXYzine 2020-0 2020- No 25mg Take 25 mg [facility] (ATARAX) 25 7- 07-13 by mouth 2 i ty of mg tablet 01:06: 00:00 (two) [place] 21 :00 times Medical daily. Branch hydrOXYzine 2020-0 Yes [id number] 25mg Take 1 [facility] 25 mg 7-13 tablet by ity of tablet 00:00: mouth 2 [place] 00 (two) Medical times [place] daily as needed for Itching. hydrOXYzine 2020-0 Yes [id number] 25mg Take 1 [facility] 25 mg 7-13 tablet by ity of tablet 00:00: mouth 2 [place] 00 (two) Medical times [place] daily as needed for Itching. hydrOXYzine 2020-0 Yes [id number] 25mg Take 1 [facility] 25 mg 7-13 tablet by ity of tablet 00:00: mouth 2 [place] [address] (two) Medical times [place] daily as needed for Itching. hydrOXYzine 2020-0 Yes [id number] 25mg Take 1 [facility] 25 mg 7-13 tablet by ity of tablet 00:00: mouth 2 (two) Medical times Branch daily as needed for Itching. hydrOXYzine 2020-0 Yes [id number] 25mg Take 1 [facility] 25 mg 7-13 tablet by ity of tablet 00:00: mouth 2 00 (two) Medical times Branch daily as needed for Itching. hydrOXYzine 2020-0 Yes [id number] 25mg Take 1 [facility] 25 mg 7-13 tablet by ity of tablet 00:00: mouth 2 00 (two) Medical times Branch daily as needed for Itching. hydrOXYzine 2020-0 Yes [id number] 25mg Take 1 [facility] 25 mg 7-13 tablet by ity of tablet 00:00: mouth 2 (two) Medical times Branch daily as needed for Itching. hydrOXYzine 2020-0 Yes [id number] 25mg Take 1 [facility] 25 mg 7-13 tablet by ity of tablet 00:00: mouth 2 [place] (two) Medical times Branch daily as needed for Itching. hydrOXYzine 2020-0 Yes [id number] 25mg Take 1 [facility] 25 mg 7-13 tablet by ity of tablet 00:00: mouth 2 [place] (two) Medical times Branch daily as needed for Itching. hydrOXYzine 2020-0 2020- No [id number] 25mg Take 1 [facility] 25 mg 7-13 12-12 tablet by ity of tablet 00:00: 00:00 mouth 2 [place] 00 :00 (two) Medical times Branch daily as needed for Itching. levothyroxi 2020-0 Yes [id number] 25ug Take 1 [facility] ne 25 mcg 5-05 tablet by ity o f tablet 00:00: mouth [place] 00 every Medical morning. Branch atorvastati 2020-0 Yes [id number] 40mg Take 1 [facility] n 40 mg 5-05 tablet by ity of tablet 00:00: mouth at [place] [address] bedtime. Medical Branch levothyroxi 2020-0 Yes [id number] 25ug Take 1 [facility] ne 25 mcg 5-05 tablet by ity o f tablet 00:00: mouth [place] 00 every Medical morning. Branch atorvastati 2020-0 Yes [id number] 40mg Take 1 [facility] n 40 mg 5-05 tablet by ity of tablet 00:00: mouth at [place] 00 bedtime. Medical Branch levothyroxi 2020-0 Yes [id number] 25ug Take 1 [facility] ne 25 mcg 5-05 tablet by ity o f tablet 00:00: mouth [place] 00 every Medical morning. Branch atorvastati 2019-0 Yes [id number] 40mg Take 1 [facility] n 40 mg 5-05 tablet by ity of tablet 00:00: mouth at [place] 00 bedtime. Medical Branch atorvastati 2020-0 Yes [id number] 40mg Take 1 [facility] n 40 mg 5-05 tablet by ity of tablet 00:00: mouth at [place] 00 bedtime. Medical Branch atorvastati 2019-0 Yes [id number] 40mg Take 1 [facility] n 40 mg 5-05 tablet by ity of tablet 00:00: mouth at [place] [address] bedtime. Medical Branch atorvastati 2019-0 Yes [id number] 40mg Take 1 [facility] n 40 mg 5-05 tablet by ity of tablet 00:00: mouth at [place] [address] bedtime. Medical Branch atorvastati 2019-0 Yes [id number] 40mg Take 1 [facility] n 40 mg 5-05 tablet by ity of tablet 00:00: mouth at [place] [address] bedtime. Medical Branch atorvastati 2019-0 Yes [id number] 40mg Take 1 [facility] n 40 mg 5-05 tablet by ity of tablet 00:00: mouth at [place] [address] bedtime. Medical Branch atorvastati 2019-0 Yes [id number] 40mg Take 1 [facility] n 40 mg 5-05 tablet by ity of tablet 00:00: mouth at [place] [address] bedtime. Medical Branch atorvastati 2020-0 Yes [id number] 40mg Take 1 [facility] n 40 mg 5-05 tablet by ity of tablet 00:00: mouth at [place] [address] bedtime. Medical Branch atorvastati 2020-0 Yes [id number] 40mg Take 1 [facility] n 40 mg 5-05 tablet by ity of tablet 00:00: mouth at [place] [address] bedtime. Medical Branch atorvastati 2020-0 Yes [id number] 40mg Take 1 [facility] n 40 mg 5-05 tablet by ity of tablet 00:00: mouth at [place] [address] bedtime. Medical Branch atorvastati 2020-0 Yes [id number] 40mg Take 1 [facility] n 40 mg 5-05 tablet by ity of tablet 00:00: mouth at [place] [address] bedtime. Medical Branch atorvastati 2020-0 Yes [id number] 40mg Take 1 [facility] n 40 mg 5-05 tablet by ity of tablet 00:00: mouth at [place] 00 bedtime. Medical Branch atorvastati 2020-0 Yes [id number] 40mg Take 1 [facility] n 40 mg 5-05 tablet by ity of tablet 00:00: mouth at [place] 00 bedtime. Medical Branch atorvastati 2020-0 Yes [id number] 40mg Take 1 [facility] n 40 mg 5-05 tablet by ity of tablet 00:00: mouth at [place] 00 bedtime. Medical Branch atorvastati 2020-0 Yes [id number] 40mg Take 1 [facility] n 40 mg 5-05 tablet by ity of tablet 00:00: mouth at [place] 00 bedtime. Medical Branch levothyroxi 2020-0 Yes [id number] 25ug Take 1 [facility] ne 25 mcg 5-05 tablet by ity o f tablet 00:00: mouth [place] 00 every Medical morning. Branch atorvastati 2019-0 Yes [id number] 40mg Take 1 [facility] n 40 mg 5-05 tablet by ity of tablet 00:00: mouth at [place] 00 bedtime. Medical Branch nicotine 7 2020-0 Yes [id number] 1{patch Apply 1 [facility] mg/24 hr 5-05 } Patch to ity of patch 00:00: area(s) [place] 00 every 24 Medical ([facility] ur) hours. Apply 21mg patch daily x 6 weeks; then apply 14mg patch daily x 2 weeks; then apply 7mg patch daily x 2 weeks. Stop smoking on treatment onset nicotine 14 2020-0 Yes [id number] 1{patch Apply 1 [facility] mg/24 hr 5-05 } Patch to ity of patch 00:00: area(s) [place] 00 every 24 Medical ([facility] ur) hours. nicotine 21 2020-0 Yes [id number] 1{patch Apply 1 [facility] mg/24 hr 5-05 } Patch to ity of patch 00:00: area(s) [place] 00 every 24 Medical ([facility] ur) hours. Apply 21mg patch daily x 6 weeks; then apply 14mg patch daily x 2 weeks; then apply 7mg patch daily x 2 weeks. Stop smoking on treatment onset levothyroxi 2020-0 Yes [id number] 25ug Take 1 [facility] ne 25 mcg 5-05 tablet by ity o f tablet 00:00: mouth [place] 00 every Medical morning. Branch atorvastati 2019- Yes [id number] 40mg Take 1 [facility] n 40 mg 5-05 tablet by ity of tablet 00:00: mouth at [place] 00 bedtime. Medical Branch nicotine 7 2019- Yes [id number] 1{patch Apply 1 [facility] mg/24 hr 5-05 } Patch to ity of patch 00:00: area(s) [place] 00 every 24 Medical ([facility] ur) hours. Apply 21mg patch daily x 6 weeks; then apply 14mg patch daily x 2 weeks; then apply 7mg patch daily x 2 weeks. Stop smoking on treatment onset nicotine 14 Yes [id number] 1{patch Apply 1 [facility] mg/24 hr 5-05 } Patch to ity of patch 00:00: area(s) [place] 00 every 24 Medical ([facility] Branch ur) hours. nicotine 21 Yes [id number] 1{patch Apply 1 [facility] mg/24 hr 5-05 } Patch to ity of patch 00:00: area(s) [place] 00 every 24 Medical ([facility] Branch ur) hours. Apply 21mg patch daily x 6 weeks; then apply 14mg patch daily x 2 weeks; then apply 7mg patch daily x 2 weeks. Stop smoking on treatment onset levothyroxi 2019- Yes [id number] 25ug Take 1 [facility] ne 25 mcg 5-05 tablet by ity o f tablet 00:00: mouth [place] 00 every Medical morning. Branch atorvastati 2019- Yes [id number] 40mg Take 1 [facility] n 40 mg 5-05 tablet by ity of tablet 00:00: mouth at [place] 00 bedtime. Medical Branch nicotine 7 2019- Yes [id number] 1{patch Apply 1 [facility] mg/24 hr 5-05 } Patch to ity of patch 00:00: area(s) [place] 00 every 24 Medical [facility] hours. Apply 21mg patch daily x 6 weeks; then apply 14mg patch daily x 2 weeks; then apply 7mg patch daily x 2 weeks. Stop smoking on treatment onset nicotine 14 2019- Yes [id number] 1{patch Apply 1 [facility] mg/24 hr 5-05 } Patch to ity of patch 00:00: area(s) [place] 00 every 24 Medical ([facility] Branch ur) hours. nicotine 21 Yes [id number] 1{patch Apply 1 [facility] mg/24 hr 5-05 } Patch to ity of patch 00:00: area(s) [place] 00 every 24 Medical [facility] ur) hours. Apply 21mg patch daily x 6 weeks; then apply 14mg patch daily x 2 weeks; then apply 7mg patch daily x 2 weeks. Stop smoking on treatment onset levothyroxi 2020-0 Yes [id number] 25ug Take 1 [facility] ne 25 mcg 5-05 tablet by ity o f tablet 00:00: mouth [place] 00 every Medical morning. Branch atorvastati 2019-0 Yes [id number] 40mg Take 1 [facility] n 40 mg 5-05 tablet by ity of tablet 00:00: mouth at [place] 00 bedtime. Medical Branch nicotine 7 2019-0 Yes [id number] 1{patch Apply 1 [facility] mg/24 hr 5-05 } Patch to ity of patch 00:00: area(s) [place] 00 every 24 Medical ([facility] Branch ur) hours. Apply 21mg patch daily x 6 weeks; then apply 14mg patch daily x 2 weeks; then apply 7mg patch daily x 2 weeks. Stop smoking on treatment onset nicotine 14 2019-0 Yes [id number] 1{patch Apply 1 [facility] mg/24 hr 5-05 } Patch to ity of patch 00:00: area(s) [place] 00 every 24 Medical ([facility] Branch ur) hours. nicotine 21 2020-0 Yes [id number] 1{patch Apply 1 [facility] mg/24 hr 5-05 } Patch to ity of patch 00:00: area(s) [place] 00 every 24 Medical ([facility] Branch ur) hours. Apply 21mg patch daily x 6 weeks; then apply 14mg patch daily x 2 weeks; then apply 7mg patch daily x 2 weeks. Stop smoking on treatment onset levothyroxi 2020-0 Yes [id number] 25ug Take 1 [facility] ne 25 mcg 5-05 tablet by ity o f tablet 00:00: mouth [place] 00 every Medical morning. Branch atorvastati 2020-0 Yes [id number] 40mg Take 1 [facility] n 40 mg 5-05 tablet by ity of tablet 00:00: mouth at [place] 00 bedtime. Medical Branch nicotine 7 2019-0 Yes [id number] 1{patch Apply 1 [facility] mg/24 hr 5-05 } Patch to ity of patch 00:00: area(s) [place] 00 every 24 Medical (twenty-fo Branch ur) hours. Apply 21mg patch daily x 6 weeks; then apply 14mg patch daily x 2 weeks; then apply 7mg patch daily x 2 weeks. Stop smoking on treatment onset nicotine 14 2020-0 Yes [id number] 1{patch Apply 1 [facility] mg/24 hr 5-05 } Patch to ity of patch 00:00: area(s) [place] 00 every 24 Medical (twenty-[facility] Branch ur) hours. nicotine 21 2020-0 Yes [id number] 1{patch Apply 1 [facility] mg/24 hr 5-05 } Patch to ity of patch 00:00: area(s) [place] 00 every 24 Medical (twenty-[facility] Branch ur) hours. Apply 21mg patch daily x 6 weeks; then apply 14mg patch daily x 2 weeks; then apply 7mg patch daily x 2 weeks. Stop smoking on treatment onset levothyroxi 2020-0 Yes [id number] 25ug Take 1 [facility] ne 25 mcg 5-05 tablet by ity o f tablet 00:00: mouth [place] 00 every Medical morning. Branch atorvastati 2019-0 Yes [id number] 40mg Take 1 [facility] n 40 mg 5-05 tablet by ity of tablet 00:00: mouth at [place] 00 bedtime. Medical Branch nicotine 7 2020-0 Yes [id number] 1{patch Apply 1 [facility] mg/24 hr 5-05 } Patch to ity of patch 00:00: area(s) [place] 00 every 24 Medical (twenty[facility] Branch ur) hours. Apply 21mg patch daily x 6 weeks; then apply 14mg patch daily x 2 weeks; then apply 7mg patch daily x 2 weeks. Stop smoking on treatment onset nicotine 14 2020-0 Yes [id number] 1{patch Apply 1 [facility] mg/24 hr 5-05 } Patch to ity of patch 00:00: area(s) [place] 00 every 24 Medical (twenty[facility] Branch ur) hours. nicotine 21 2020-0 Yes [id number] 1{patch Apply 1 [facility] mg/24 hr 5-05 } Patch to ity of patch 00:00: area(s) [place] 00 every 24 Medical (twenty-[facility] Branch ur) hours. Apply 21mg patch daily x 6 weeks; then apply 14mg patch daily x 2 weeks; then apply 7mg patch daily x 2 weeks. Stop smoking on treatment onset levothyroxi 2020-0 Yes [id number] 25ug Take 1 [facility] ne 25 mcg 5-05 tablet by ity o f tablet 00:00: mouth [place] 00 every Medical morning. Branch atorvastati Yes [id number] 40mg Take 1 [facility] n 40 mg 5-05 tablet by ity of tablet 00:00: mouth at [place] 00 bedtime. Medical Branch nicotine 7 Yes [id number] 1{patch Apply 1 [facility] mg/24 hr 5-05 } Patch to ity of patch 00:00: area(s) [place] 00 every 24 Medical ([facility] Branch ur) hours. Apply 21mg patch daily x 6 weeks; then apply 14mg patch daily x 2 weeks; then apply 7mg patch daily x 2 weeks. Stop smoking on treatment onset nicotine 14 Yes [id number] 1{patch Apply 1 [facility] mg/24 hr 5-05 } Patch to ity of patch 00:00: area(s) [place] 00 every 24 Medical ([facility] Branch ur) hours. nicotine 21 Yes [id number] 1{patch Apply 1 [facility] mg/24 hr 5-05 } Patch to ity of patch 00:00: area(s) [place] 00 every 24 Medical ([facility] Branch ur) hours. Apply 21mg patch daily x 6 weeks; then apply 14mg patch daily x 2 weeks; then apply 7mg patch daily x 2 weeks. Stop smoking on treatment onset levothyroxi 2019- Yes [id number] 25ug Take 1 [facility] ne 25 mcg 5-05 tablet by ity o f tablet 00:00: mouth [place] 00 every Medical morning. Branch atorvastati Yes [id number] 40mg Take 1 [facility] n 40 mg 5-05 tablet by ity of tablet 00:00: mouth at [place] 00 bedtime. Medical Branch nicotine 7 Yes [id number] 1{patch Apply 1 [facility] mg/24 hr 5-05 } Patch to ity of patch 00:00: area(s) [place] 00 every 24 Medical ([facility] Branch ur) hours. Apply 21mg patch daily x 6 weeks; then apply 14mg patch daily x 2 weeks; then apply 7mg patch daily x 2 weeks. Stop smoking on treatment onset nicotine 14 2019- Yes [id number] 1{patch Apply 1 [facility] mg/24 hr 5-05 } Patch to ity of patch 00:00: area(s) [place] 00 every 24 Medical ([facility] Branch ur) hours. nicotine 21 2020-0 Yes [id number] 1{patch Apply 1 [facility] mg/24 hr 5-05 } Patch to ity of patch 00:00: [facility]() [place] 00 every 24 Medical ([facility] Branch ur) hours. Apply 21mg patch daily x 6 weeks; then apply 14mg patch daily x 2 weeks; then apply 7mg patch daily x 2 weeks. Stop smoking on treatment onset levothyroxi 2020-0 Yes [id number] 25ug Take 1 [facility] ne 25 mcg 5-05 tablet by ity o f tablet 00:00: mouth [place] 00 every Medical morning. Branch atorvastati 2020-0 Yes [id number] 40mg Take 1 [facility] n 40 mg 5-05 tablet by ity of tablet 00:00: mouth at [place] 00 bedtime. Medical Branch nicotine 7 2019-0 Yes [id number] 1{patch Apply 1 [facility] mg/24 hr 5-05 } Patch to ity of patch 00:00: [facility]() [place] [address] every 24 Medical ([facility] Branch ur) hours. Apply 21mg patch daily x 6 weeks; then apply 14mg patch daily x 2 weeks; then apply 7mg patch daily x 2 weeks. Stop smoking on treatment onset nicotine 14 2019-0 Yes [id number] 1{patch Apply 1 [facility] mg/24 hr 5-05 } Patch to ity of patch 00:00: [facility] [place] 00 every 24 Medical ([facility] ur) hours. nicotine 21 2020-0 Yes [id number] 1{patch Apply 1 [facility] mg/24 hr 5-05 } Patch to ity of patch 00:00: [facility]() [place] 00 every 24 Medical ([facility] ur) hours. Apply 21mg patch daily x 6 weeks; then apply 14mg patch daily x 2 weeks; then apply 7mg patch daily x 2 weeks. Stop smoking on treatment onset levothyroxi 2020-0 Yes [id number] 25ug Take 1 [facility] ne 25 mcg 5-05 tablet by ity o f tablet 00:00: mouth [place] 00 every Medical morning. Branch atorvastati 2020-0 Yes [id number] 40mg Take 1 [facility] n 40 mg 5-05 tablet by ity of tablet 00:00: mouth at [place] 00 bedtime. Medical Branch nicotine 7 2019-0 Yes [id number] 1{patch Apply 1 [facility] mg/24 hr 5-05 } Patch to ity of patch 00:00: area(s) [place] 00 every 24 Medical (twenty- Branch ur) hours. Apply 21mg patch daily x 6 weeks; then apply 14mg patch daily x 2 weeks; then apply 7mg patch daily x 2 weeks. Stop smoking on treatment onset nicotine 14 2020-0 Yes [id number] 1{patch Apply 1 [facility] mg/24 hr 5-05 } Patch to ity of patch 00:00: [facility](s) [place] 00 every 24 Medical (twenty- Branch ur) hours. nicotine 21 2020-0 Yes [id number] 1{patch Apply 1 [facility] mg/24 hr 5-05 } Patch to ity of patch 00:00: [facility]() [place] 00 every 24 Medical ([facility]) hours. Apply 21mg patch daily x 6 weeks; then apply 14mg patch daily x 2 weeks; then apply 7mg patch daily x 2 weeks. Stop smoking on treatment onset levothyroxi 2020-0 Yes [id number] 25ug Take 1 [facility] ne 25 mcg 5-05 tablet by ity o f tablet 00:00: mouth [place] 00 every Medical morning. Branch atorvastati 2020-0 Yes [id number] 40mg Take 1 [facility] n 40 mg 5-05 tablet by ity of tablet 00:00: mouth at [place] 00 bedtime. Medical Branch nicotine 7 2020-0 Yes [id number] 1{patch Apply 1 [facility] mg/24 hr 5-05 } Patch to ity of patch 00:00: [facility]() [place] 00 every 24 Medical (twenty- Branch ur) hours. Apply 21mg patch daily x 6 weeks; then apply 14mg patch daily x 2 weeks; then apply 7mg patch daily x 2 weeks. Stop smoking on treatment onset nicotine 14 2020-0 Yes [id number] 1{patch Apply 1 [facility] mg/24 hr 5-05 } Patch to ity of patch 00:00: area() [place] 00 every 24 Medical (twenty- Branch ur) hours. nicotine 21 2020-0 Yes [id number] 1{patch Apply 1 [facility] mg/24 hr 5-05 } Patch to ity of patch 00:00: [facility]() [place] 00 every 24 Medical (twenty- Branch ur) hours. Apply 21mg patch daily x 6 weeks; then apply 14mg patch daily x 2 weeks; then apply 7mg patch daily x 2 weeks. Stop smoking on treatment onset levothyroxi 2020-0 Yes [id number] 25ug Take 1 [facility] ne 25 mcg 5-05 tablet by ity o f tablet 00:00: mouth [place] 00 every Medical morning. Branch atorvastati 2019-0 Yes [id number] 40mg Take 1 [facility] n 40 mg 5-05 tablet by ity of tablet 00:00: mouth at [place] 00 bedtime. Medical Branch nicotine 7 2019- Yes [id number] 1{patch Apply 1 [facility] mg/24 hr 5-05 } Patch to ity of patch 00:00: area(s) [place] 00 every 24 Medical (twenty- Branch ur) hours. Apply 21mg patch daily x 6 weeks; then apply 14mg patch daily x 2 weeks; then apply 7mg patch daily x 2 weeks. Stop smoking on treatment onset nicotine 14 Yes [id number] 1{patch Apply 1 [facility] mg/24 hr 5-05 } Patch to ity of patch 00:00: area(s) [place] 00 every 24 Medical ([facility] Branch ur) hours. nicotine 21 Yes [id number] 1{patch Apply 1 [facility] mg/24 hr 5-05 } Patch to ity of patch 00:00: area(s) [place] 00 every 24 Medical (twenty- Branch ur) hours. Apply 21mg patch daily x 6 weeks; then apply 14mg patch daily x 2 weeks; then apply 7mg patch daily x 2 weeks. Stop smoking on treatment onset levothyroxi 2020-0 Yes [id number] 25ug Take 1 [facility] ne 25 mcg 5-05 tablet by ity o f tablet 00:00: mouth [place] 00 every Medical morning. Branch atorvastati 2019-0 Yes [id number] 40mg Take 1 [facility] n 40 mg 5-05 tablet by ity of tablet 00:00: mouth at [place] 00 bedtime. Medical Branch nicotine 7 2019- Yes [id number] 1{patch Apply 1 [facility] mg/24 hr 5-05 } Patch to ity of patch 00:00: area(s) [place] 00 every 24 Medical (twenty- Branch ur) hours. Apply 21mg patch daily x 6 weeks; then apply 14mg patch daily x 2 weeks; then apply 7mg patch daily x 2 weeks. Stop smoking on treatment onset nicotine 14 2019-0 Yes [id number] 1{patch Apply 1 [facility] mg/24 hr 5-05 } Patch to ity of patch 00:00: area(s) [place] 00 every 24 Medical ([facility] Branch ur) hours. nicotine 21 2019- Yes [id number] 1{patch Apply 1 [facility] mg/24 hr 5-05 } Patch to ity of patch 00:00: area(s) [place] 00 every 24 Medical ([facility] Branch ur) hours. Apply 21mg patch daily x 6 weeks; then apply 14mg patch daily x 2 weeks; then apply 7mg patch daily x 2 weeks. Stop smoking on treatment onset levothyroxi 2020-0 Yes [id number] 25ug Take 1 [facility] ne 25 mcg 5-05 tablet by ity o f tablet 00:00: mouth [place] 00 every Medical morning. Branch atorvastati 2019-0 Yes [id number] 40mg Take 1 [facility] n 40 mg 5-05 tablet by ity of tablet 00:00: mouth at [place] 00 bedtime. Medical Branch nicotine 7 2019-0 Yes [id number] 1{patch Apply 1 [facility] mg/24 hr 5-05 } Patch to ity of patch 00:00: area(s) [place] 00 every 24 Medical ([facility] Branch ur) hours. Apply 21mg patch daily x 6 weeks; then apply 14mg patch daily x 2 weeks; then apply 7mg patch daily x 2 weeks. Stop smoking on treatment onset nicotine 14 2019-0 Yes [id number] 1{patch Apply 1 [facility] mg/24 hr 5-05 } Patch to ity of patch 00:00: area(s) [place] 00 every 24 Medical ([facility] Branch ur) hours. nicotine 21 2019- Yes [id number] 1{patch Apply 1 [facility] mg/24 hr 5-05 } Patch to ity of patch 00:00: area(s) [place] 00 every 24 Medical ([facility] Branch ur) hours. Apply 21mg patch daily x 6 weeks; then apply 14mg patch daily x 2 weeks; then apply 7mg patch daily x 2 weeks. Stop smoking on treatment onset levothyroxi 2020-0 Yes [id number] 25ug Take 1 [facility] ne 25 mcg 5-05 tablet by ity o f tablet 00:00: mouth [place] 00 every Medical morning. Branch atorvastati 2019-0 Yes [id number] 40mg Take 1 [facility] n 40 mg 5-05 tablet by ity of tablet 00:00: mouth at [place] 00 bedtime. Medical Branch nicotine 7 2019-0 Yes [id number] 1{patch Apply 1 [facility] mg/24 hr 5-05 } Patch to ity of patch 00:00: area(s) [place] 00 every 24 Medical ([facility] Branch ur) hours. Apply 21mg patch daily x 6 weeks; then apply 14mg patch daily x 2 weeks; then apply 7mg patch daily x 2 weeks. Stop smoking on treatment onset nicotine 14 2019-0 Yes [id number] 1{patch Apply 1 [facility] mg/24 hr 5-05 } Patch to ity of patch 00:00: area(s) [place] 00 every 24 Medical ([facility] Branch ur) hours. nicotine 21 2019- Yes [id number] 1{patch Apply 1 [facility] mg/24 hr 5-05 } Patch to ity of patch 00:00: [facility]) [place] 00 every 24 Medical [facility]) hours. Apply 21mg patch daily x 6 weeks; then apply 14mg patch daily x 2 weeks; then apply 7mg patch daily x 2 weeks. Stop smoking on treatment onset levothyroxi 2019-0 Yes [id number] 25ug Take 1 [facility] ne 25 mcg 5-05 tablet by ity o f tablet 00:00: mouth [place] 00 every Medical morning. Branch atorvastati 2019-0 Yes [id number] 40mg Take 1 [facility] n 40 mg 5-05 tablet by ity of tablet 00:00: mouth at [place] 00 bedtime. Medical Branch nicotine 7 2019-0 Yes [id number] 1{patch Apply 1 [facility] mg/24 hr 5-05 } Patch to ity of patch 00:00: area(s) [place] 00 every 24 Medical ([facility] Branch ur) hours. Apply 21mg patch daily x 6 weeks; then apply 14mg patch daily x 2 weeks; then apply 7mg patch daily x 2 weeks. Stop smoking on treatment onset nicotine 14 2019-0 Yes [id number] 1{patch Apply 1 [facility] mg/24 hr 5-05 } Patch to ity of patch 00:00: area(s) [place] 00 every 24 Medical ([facility] Branch ur) hours. nicotine 21 2019-0 Yes [id number] 1{patch Apply 1 [facility] mg/24 hr 5-05 } Patch to ity of patch 00:00: area(s) [place] 00 every 24 Medical ([facility] Branch ur) hours. Apply 21mg patch daily x 6 weeks; then apply 14mg patch daily x 2 weeks; then apply 7mg patch daily x 2 weeks. Stop smoking on treatment onset levothyroxi 2020-0 Yes [id number] 25ug Take 1 [facility] ne 25 mcg 5-05 tablet by ity o f tablet 00:00: mouth [place] 00 every Medical morning. Branch atorvastati 2020-0 Yes [id number] 40mg Take 1 [facility] n 40 mg 5-05 tablet by ity of tablet 00:00: mouth at [place] 00 bedtime. Medical Branch levothyroxi 2020-0 Yes [id number] 25ug Take 1 [facility] ne 25 mcg 5-05 tablet by ity o f tablet 00:00: mouth [place] 00 every Medical morning. Branch atorvastati 2020-0 Yes [id number] 40mg Take 1 [facility] n 40 mg 5-05 tablet by ity of tablet 00:00: mouth at [place] 00 bedtime. Medical Branch levothyroxi 2020-0 Yes [id number] 25ug Take 1 [facility] ne 25 mcg 5-05 tablet by ity o f tablet 00:00: mouth [place] 00 every Medical morning. Branch atorvastati 2020-0 Yes [id number] 40mg Take 1 [facility] n 40 mg 5-05 tablet by ity of tablet 00:00: mouth at [place] 00 bedtime. Medical Branch levothyroxi 2020-0 Yes [id number] 25ug Take 1 [facility] ne 25 mcg 5-05 tablet by ity o f tablet 00:00: mouth [place] 00 every Medical morning. Branch atorvastati 2020-0 Yes [id number] 40mg Take 1 [facility] n 40 mg 5-05 tablet by ity of tablet 00:00: mouth at [place] 00 bedtime. Medical Branch levothyroxi 2020-0 Yes [id number] 25ug Take 1 [facility] ne 25 mcg 5-05 tablet by ity o f tablet 00:00: mouth [place] 00 every Medical morning. Branch atorvastati 2020-0 Yes [id number] 40mg Take 1 [facility] n 40 mg 5-05 tablet by ity of tablet 00:00: mouth at [place] 00 bedtime. Medical Branch levothyroxi 2020-0 Yes [id number] 25ug Take 1 [facility] ne 25 mcg 5-05 tablet by ity o f tablet 00:00: mouth [place] 00 every Medical morning. Branch atorvastati 2019- Yes [id number] 40mg Take 1 [facility] n 40 mg 5-05 tablet by ity of tablet 00:00: mouth at [place] 00 bedtime. Medical Branch levothyroxi Yes [id number] 25ug Take 1 [facility] ne 25 mcg 5-05 tablet by ity o f tablet 00:00: mouth [place] 00 every Medical morning. Branch atorvastati Yes [id number] 40mg Take 1 [facility] n 40 mg 5-05 tablet by ity of tablet 00:00: mouth at [place] 00 bedtime. Medical Branch atorvastati 2020- No [id number] 40mg Take 1 [facility] n 40 mg 5-05 03-31 tablet by ity of tablet 00:00: 00:00 mouth at [place] 00 :00 bedtime. Medical Branch levothyroxi 2020- No [id number] 25ug Take 1 [facility] ne 25 mcg 5-05 02-23 tablet by ity of tablet 00:00: 00:00 mouth [place] 00 :00 every Medical morning. Branch nicotine 7 2019- No [id number] 1{patch Apply 1 [facility] mg/24 hr 01-11 } Patch to ity of patch 00:00: 00:00 area(s) [place] 00 :00 every 24 Medical ([facility] ur) hours. Apply 21mg patch daily x 6 weeks; then apply 14mg patch daily x 2 weeks; then apply 7mg patch daily x 2 weeks. Stop smoking on treatment onset nicotine 14 2019- No [id number] 1{patch Apply 1 [facility] mg/24 hr 01-11 } Patch to ity of patch 00:00: 00:00 area(s) [place] 00 :00 every 24 Medical ([facility] ur) hours. nicotine 21 2019- No [id number] 1{patch Apply 1 [facility] mg/24 hr 01-11 } Patch to ity of patch 00:00: 00:00 [facility](s) [place] 00 :00 every 24 Medical ([facility] ur) hours. Apply 21mg patch daily x 6 weeks; then apply 14mg patch daily x 2 weeks; then apply 7mg patch daily x 2 weeks. Stop smoking on treatment onset nicotine 7 2019- No [id number] 1{patch Apply 1 [facility] mg/24 hr 5-08-09 } Patch to ity of patch 00:00: 00:00 [facility](s) [place] 00 :00 every 24 Medical ([facility] ur) hours. Apply 21mg patch daily x 6 weeks; then apply 14mg patch daily x 2 weeks; then apply 7mg patch daily x 2 weeks. Stop smoking on treatment onset nicotine 14 2020- No [id number] 1{patch Apply 1 [facility] mg/24 hr 5-08-09 } Patch to ity of patch 00:00: 00:00 area(s) [place] 00 :00 every 24 Medical ([facility] ur) hours. nicotine 21 2020- No [id number] 1{patch Apply 1 [facility] mg/24 hr 01-11 } Patch to ity of patch 00:00: 00:00 [facility](s) [place] 00 :00 every 24 Medical ([facility] ur) hours. Apply 21mg patch daily x 6 weeks; then apply 14mg patch daily x 2 weeks; then apply 7mg patch daily x 2 weeks. Stop smoking on treatment onset furosemide 2019-0 2020- No 20mg Take 1 Univ ers 20 mg 5-05 05-05 tablet by ity of tablet 00:00: 00:00 mouth [place] 00 :00 daily. Medical Branch furosemide 2019-0 2020- No 20mg Take 1 Univ ers 20 mg 5-05 05-05 tablet by ity of tablet 00:00: 00:00 mouth [place] 00 :00 daily. Medical Branch FUROSEMIDE 2019-0 Yes [id number] TAKE ONE [facility] 20 mg 3-29 TABLET BY ity of tablet 00:00: MOUTH [place] 00 DAILY Medical Branch FUROSEMIDE 2020-0 Yes [id number] TAKE ONE [facility] 20 mg 3-29 TABLET BY ity of tablet 00:00: MOUTH [place] 00 DAILY Medical Branch FUROSEMIDE 2020-0 2020- No [id number] TAKE ONE [facility] 20 mg 3-29 05-05 TABLET BY ity of tablet 00:00: 00:00 MOUTH [place] 00 :00 DAILY Medical Branch FUROSEMIDE 2020-0 2020- No [id number] TAKE ONE [facility] 20 mg 3-29 05-05 TABLET BY ity of tablet 00:00: 00:00 MOUTH [place] 00 :00 DAILY Medical Branch LEVOTHYROXI 2019- Yes [id number] TAKE ONE [facility] NE 25 mcg 0-22 TABLET BY ity o f tablet 00:00: MOUTH [place] 00 EVERY Medical MORNING Branch LEVOTHYROXI 2018-09 Yes [id number] TAKE ONE [facility] NE 25 mcg 0-22 TABLET BY ity o f tablet 00:00: MOUTH [place] 00 EVERY Medical MORNING Branch LEVOTHYROXI 2018-09 2020- No [id number] TAKE ONE [facility] NE 25 mcg 0-22 05-05 TABLET BY ity of tablet 00:00: 00:00 MOUTH [place] 00 :00 EVERY Medical MORNING Branch LEVOTHYROXI 2018-09 2020- No [id number] TAKE ONE [facility] NE 25 mcg 0-22 05-05 TABLET BY ity of tablet 00:00: 00:00 MOUTH [place] 00 :00 EVERY Medical MORNING Branch nicotine 2018-09 Yes [id number] 1{patch Apply 1 Univers (NICODERM 0-03 } Patch to ity of CQ) 21 00:00: area(s) [place] mg/24 hr 00 every 24 Medical patch ([facility] ur) hours. Apply 21mg patch to skin qDay x 6wks, then apply 14 mg Patch to skin qDay x 2wks, then apply 7mg Patch to skin qDay x 2wks. Start on cigarette quit day nicotine 2018-09 Yes [id number] 1{patch Apply 1 [facility] (NICODERM 0-03 } Patch to ity of CQ) 21 00:00: area(s) [place] mg/24 hr 00 every 24 Medical patch ([facility] ur) hours. Apply 21mg patch to skin qDay x 6wks, then apply 14 mg Patch to skin qDay x 2wks, then apply 7mg Patch to skin qDay x 2wks. Start on cigarette quit day nicotine 2018-09- No [id number] 1{patch Apply 1 [facility] (NICODERM 0-03 05-05 } Patch to ity o f CQ) 21 00:00: 00:00 area(s) [place] mg/24 hr 00 :00 every 24 Medical patch ([facility] ur) hours. Apply 21mg patch to skin qDay x 6wks, then apply 14 mg Patch to skin qDay x 2wks, then apply 7mg Patch to skin qDay x 2wks. Start on cigarette quit day nicotine 2018-09- No [id number] 1{patch Apply 1 [facility] (NICODERM 0-03 05-05 } Patch to ity o f CQ) 21 00:00: 00:00 area(s) [place] mg/24 hr 00 :00 every 24 Medical patch (twenty-fo Branch ur) hours. Apply 21mg patch to skin qDay x 6wks, then apply 14 mg Patch to skin qDay x 2wks, then apply 7mg Patch to skin qDay x 2wks. Start on cigarette quit day FLUoxetine 2018-09 Yes 40mg Take 40 mg U nivers (PROZAC) 40 0-01 by mouth ity of mg capsule 18:57: daily. [address] hydrOXYzine 2018-09 Yes 25mg Take 25 mg Univers (ATARAX) 25 0-01 by mouth 2 it y of mg tablet 18:57: (two) [place] 50 times Medical daily. Branch Iloperidone 2018-09 Yes 1{tbl} Take 1 Tab Univers (FANAPT) 6 0-01 by mouth 2 ity of mg Tab 18:57: (two) [place] 50 times Medical daily. Branch FLUoxetine 2018-09 Yes 40mg Take 40 mg U nivers (PROZAC) 40 0-01 by mouth ity of mg capsule 18:57: daily. [address] hydrOXYzine 2018-09 Yes 25mg Take 25 mg Univers (ATARAX) 25 0-01 by mouth 2 it y of mg tablet 18:57: (two) [place] 50 times Medical daily. Branch Iloperidone 2018-09 Yes 1{tbl} Take 1 Tab [facility] (FANAPT) 6 0-01 by mouth 2 ity of mg Tab 18:57: (two) [place] 50 times Medical daily. Branch FLUoxetine 2018-09 Yes 40mg Take 40 mg U nivers (PROZAC) 40 0-01 by mouth ity of mg capsule 18:57: daily. [address] hydrOXYzine 2018-09 Yes 25mg Take 25 mg Univers (ATARAX) 25 0-01 by mouth 2 it y of mg tablet 18:57: (two) [place] 50 times Medical daily. Branch Iloperidone 2018-09 Yes 1{tbl} Take 1 Tab [facility] (FANAPT) 6 0-01 by mouth 2 ity of mg Tab 18:57: (two) [place] 50 times Medical daily. Branch FLUoxetine 2018-09 Yes 40mg Take 40 mg U nivers (PROZAC) 40 0-01 by mouth ity of mg capsule 18:57: daily. [address] hydrOXYzine 2018-09 Yes 25mg Take 25 [...] mouth ity of mg capsule 18:57: daily. [address] hydrOXYzine 2018-09 Yes 25mg Take 25 mg Univers (ATARAX) 25 0-01 by mouth 2 it y of mg tablet 18:57: (two) [place] 50 times Medical daily. Branch Iloperidone 2018-09 Yes 1{tbl} Take 1 Tab [facility] (FANAPT) 6 0-01 by mouth 2 ity of mg Tab 18:57: (two) [place] 50 times Medical daily. Branch FLUoxetine 2018-09 Yes 40mg Take 40 mg U nivers (PROZAC) 40 0-01 by mouth ity of mg capsule 18:57: daily. [address] hydrOXYzine 2018-09 Yes 25mg Take 25 mg Univers (ATARAX) 25 0-01 by mouth 2 it y of mg tablet 18:57: (two) [place] 50 times Medical daily. Branch Iloperidone 2018-09 Yes 1{tbl} Take 1 Tab [facility] (FANAPT) 6 0-01 by mouth 2 ity of mg Tab 18:57: (two) [place] 50 times Medical daily. Branch FLUoxetine 2018-09 Yes 40mg Take 40 mg U nivers (PROZAC) 40 0-01 by mouth ity of mg capsule 18:57: daily. [address] hydrOXYzine 2018-09 Yes 25mg Take 25 mg Univers (ATARAX) 25 0-01 by mouth 2 it y of mg tablet 18:57: (two) [place] 50 times Medical daily. Branch Iloperidone 2018-09 Yes 1{tbl} Take 1 Tab [facility] (FANAPT) 6 0-01 by mouth 2 ity of mg Tab 18:57: (two) [place] 50 times Medical daily. Branch FLUoxetine 2018-09 Yes 40mg Take 40 mg U nivers (PROZAC) 40 0-01 by mouth ity of mg capsule 18:57: daily. [address] hydrOXYzine 2018-09 Yes 25mg Take 25 [...] mouth ity of mg capsule 18:57: daily. [address] hydrOXYzine 2018-09 Yes 25mg Take 25 [...] mouth ity of mg capsule 18:57: daily. [address] hydrOXYzine 2018-09 Yes 25mg Take 25 [...] mouth ity of mg capsule 18:57: daily. [address] Branch hydrOXYzine 2018-09 Yes 25mg Take [...] mouth ity of mg capsule 18:57: daily. [address] Iloperidone 2018-09 Yes 1{tbl} Take 1 Tab [facility] (FANAPT) 6 0-01 by mouth 2 ity of mg Tab 18:57: (two) [place] 50 times Medical daily. Branch FLUoxetine 2018-09 Yes 40mg Take 40 mg U nivers (PROZAC) 40 0-01 by mouth ity of mg capsule 18:57: daily. [address] 2018-09 Yes 1{tbl} Take 1 Tab [facility] (FANAPT) 6 0-01 by mouth 2 ity of mg Tab 18:57: (two) [place] 50 times Medical daily. Branch FLUoxetine 2018-09 Yes 40mg Take 40 mg U nivers (PROZAC) 40 0-01 by mouth ity of mg capsule 18:57: daily. [address] 2018-09 Yes 1{tbl} Take 1 Tab Univers (FANAPT) 6 0-01 by mouth 2 ity of mg Tab 18:57: (two) [place] 50 times Medical daily. Branch FLUoxetine 2018-09 Yes 40mg Take 40 mg U nivers (PROZAC) 40 0-01 by mouth ity of mg capsule 18:57: daily. [address] 2018-09 Yes 1{tbl} Take 1 Tab Univers (FANAPT) 6 0-01 by mouth 2 ity of mg Tab 18:57: (two) [place] 50 times Medical daily. Branch FLUoxetine 2018-09 Yes 40mg Take 40 mg U nivers (PROZAC) 40 0-01 by mouth ity of mg capsule 18:57: daily. [address] 2018-09 Yes 1{tbl} Take 1 Tab Univers (FANAPT) 6 0-01 by mouth 2 ity of mg Tab 18:57: (two) [place] 50 times Medical daily. [place] FLUoxetine 2018-09 Yes 40mg Take 40 mg U nivers (PROZAC) 40 0-01 by mouth ity of mg capsule 18:57: daily. [address] 2018-09 Yes 1{tbl} Take 1 Tab Univers (FANAPT) 6 0-01 by mouth 2 ity of mg Tab 18:57: (two) [place] [address] times Medical daily. Branch FLUoxetine 2018-09 Yes 40mg Take 40 mg U nivers (PROZAC) 40 0-01 by mouth ity of mg capsule 18:57: daily. [address] Iloperidone 2018-09 Yes 1{tbl} Take 1 Tab Univers (FANAPT) 6 0-01 by mouth 2 ity of mg Tab 18:57: (two) [place] [address] times Medical daily. Branch FUROSEMIDE 2020- No [id number] TAKE ONE [facility] 20 mg 9-17 03-29 TABLET BY ity of tablet 00:00: 00:00 MOUTH [place] 00 :00 DAILY Medical Branch FUROSEMIDE 2019- No [id number] TAKE ONE [facility] 20 mg 7-18 03-29 TABLET BY ity of tablet 00:00: 00:00 MOUTH [place] 00 :00 DAILY [facility] ATORVASTA 2017-09 Yes [id number] TAKE ONE Univers N 40 mg 1-06 TABLET BY ity of tablet 00:00: MOUTH [place] 00 EVERY Medical NIGHT AT [facility] 2017-09 Yes [id number] TAKE ONE Univers N 40 mg 1-06 TABLET BY ity of tablet 00:00: MOUTH AT [address] 2017-09 Yes [id number] TAKE ONE Univers N 40 mg 1-06 TABLET BY ity of tablet 00:00: MOUTH [place] 00 EVERY Medical NIGHT AT [facility] 2017-09 Yes [id number] TAKE ONE Univers N 40 mg 1-06 TABLET BY ity of tablet 00:00: MOUTH AT [address] 2017-09 2020- No [id number] TAKE ONE Univers N 40 mg 1-06 05-05 TABLET BY ity of tablet 00:00: 00:00 MOUTH [place] 00 :00 EVERY Medical NIGHT AT [facility] 2017-09 2020- No [id number] TAKE ONE Univers N 40 mg 1-06 05-05 TABLET BY ity of tablet 00:00: 00:00 MOUTH AT [place] 00 :00 [facility] 2017-09 2020- No [id number] TAKE ONE Univers N 40 mg 1-06 05-05 TABLET BY ity of tablet 00:00: 00:00 MOUTH [place] 00 :00 EVERY Medical NIGHT AT [facility] 2017-09 2020- No [id number] TAKE ONE Univers N 40 mg 1-06 [...] for Nausea and Vomiting (N/V). proMETHazin 2018-0 2021- No 25mg Take 1 Uni vers e 25 mg 9-19 03-16 tablet by ity of tablet 00:00: 00:00 mouth [place] 00 :00 every 6 Medical (six) Branch hours as needed for Nausea and Vomiting (N/V). acetaminoph 2017- 2020- No 1{tbl} Take 1 U nivers en-codeine 05-28-05 tablet by ity of 300-30 mg 00:00: 00:00 mouth [place] tablet 00 :00 every 6 Medical (six) Branch hours as needed (pain). acetaminoph 2017- 2020- No 1{tbl} Take 1 U nivers en-codeine 05-28 05-05 tablet by ity of 300-30 mg 00:00: 00:00 mouth [place] tablet 00 :00 every 6 Medical (six) Branch hours as needed (pain). ziprasidone 2016-0 Yes 60mg Take 60 mg Univers (GEODON) 60 9-07 by mouth 2 it y of mg capsule 00:00: (two) [place] 00 times Medical daily with Branch meals. ziprasidone 2016-0 Yes 60mg Take 60 mg Univers (GEODON) 60 9-07 by mouth 2 it y of mg capsule 00:00: (two) [place] 00 times Medical daily with Branch meals. ziprasidone 2016-0 Yes 60mg Take 60 mg Univers (GEODON) 60 9-07 by mouth 2 it y of mg capsule 00:00: (two) [place] 00 times Medical daily with Branch meals. ziprasidone 2016-0 Yes 60mg Take 60 mg Univers (GEODON) 60 9-07 by mouth 2 it y of mg capsule 00:00: (two) [place] 00 times Medical daily with Branch meals. ziprasidone 2016-0 Yes 60mg Take 60 mg Univers (GEODON) 60 9-07 by mouth 2 it y of mg capsule 00:00: (two) [place] 00 times Medical daily with Branch meals. ziprasidone 2016-0 Yes 60mg Take 60 mg Univers (GEODON) 60 9-07 by mouth 2 it y of mg capsule 00:00: (two) [place] 00 times Medical daily with Branch meals. ziprasidone 2016-0 Yes 60mg Take 60 mg [facility] (GEODON) 60 9-07 by mouth 2 it y of mg capsule 00:00: (two) [place] 00 times Medical daily with Branch meals. [...] it y of mg capsule 00:00: (two) [place] 00 times Medical daily with Branch meals. ziprasidone 2016-0 Yes 60mg Take 60 mg Univers (GEODON) 60 9-07 by mouth 2 it y of mg capsule 00:00: (two) [place] 00 times Medical daily with Branch meals. ziprasidone 2016-0 Yes 60mg Take 60 mg Univers (GEODON) 60 9-07 by mouth 2 it y of mg capsule 00:00: (two) [place] 00 times Medical daily with Branch meals. ziprasidone 2016-0 Yes 60mg Take 60 mg [facility] (GEODON) 60 9-07 by mouth 2 it y of mg capsule 00:00: (two) [place] 00 times Medical daily with Branch meals. ziprasidone 2016-0 Yes 60mg Take 60 mg [facility] (GEODON) 60 9-07 by mouth 2 it y of mg capsule 00:00: (two) [place] 00 times Medical daily with Branch meals. ziprasidone 2016-0 Yes 60mg Take 60 mg [facility] (GEODON) 60 9-07 by mouth 2 it y of mg capsule 00:00: (two) [place] 00 times Medical daily with Branch meals. ziprasidone 2016-0 Yes 60mg Take 60 mg [facility] (GEODON) 60 9-07 by mouth 2 it y of mg capsule 00:00: (two) [place] 00 times Medical daily with Branch meals. [...] it y of mg capsule 00:00: (two) [place] 00 times Medical daily with Branch meals. ziprasidone 2016-0 Yes 60mg Take 60 mg [facility] (GEODON) 60 9-07 by mouth 2 it y of mg capsule 00:00: (two) [place] 00 times Medical daily with Branch meals. ziprasidone 2016-0 Yes 60mg Take 60 mg [facility] (GEODON) 60 9-07 by mouth 2 it y of mg capsule 00:00: (two) [place] 00 times Medical daily with Branch meals. ziprasidone 2016-0 Yes 60mg Take 60 mg [facility] (GEODON) 60 9-07 by mouth 2 it y of mg capsule 00:00: (two) [place] 00 times Medical daily with Branch meals. ziprasidone 2016-0 Yes 60mg Take 60 mg [facility] (GEODON) 60 9-07 by mouth 2 it y of mg capsule 00:00: (two) [place] 00 times Medical daily with Branch meals. ziprasidone 2016-0 Yes 60mg Take 60 mg [facility] (GEODON) 60 9-07 by mouth 2 it y of mg capsule 00:00: (two) [place] 00 times Medical daily with Branch meals. ziprasidone 2016-0 Yes 60mg Take 60 mg [facility] (GEODON) 60 9-07 by mouth 2 it y of mg capsule 00:00: (two) [place] 00 times Medical daily with Branch meals. [...] it y of mg capsule 00:00: (two) [place] 00 times Medical daily with Branch meals. ziprasidone 2016-0 Yes 60mg Take 60 mg [facility] (GEODON) 60 9-07 by mouth 2 it y of mg capsule 00:00: (two) [place] 00 times Medical daily with Branch meals. ziprasidone 2016-0 Yes 60mg Take 60 mg [facility] (GEODON) 60 9-07 by mouth 2 it y of mg capsule 00:00: (two) [place] 00 times Medical daily with Branch meals. ziprasidone 2016-0 Yes 60mg Take 60 mg [facility] (GEODON) 60 9-07 by mouth 2 it y of mg capsule 00:00: (two) [place] 00 times Medical daily with Branch meals. ziprasidone 2016-0 Yes 60mg Take 60 mg [facility] (GEODON) 60 9-07 by mouth 2 it y of mg capsule 00:00: (two) [place] 00 times Medical daily with Branch meals. ziprasidone 2016-0 Yes 60mg Take 60 mg [facility] (GEODON) 60 9-07 by mouth 2 it y of mg capsule 00:00: (two) [place] 00 times Medical daily with Branch meals. ziprasidone 2016-0 Yes 60mg Take 60 mg [facility] (GEODON) 60 9-07 by mouth 2 it y of mg capsule 00:00: (two) [place] 00 times Medical daily with Branch meals. ziprasidone 2016-0 Yes 60mg Take 60 mg [facility] (GEODON) 60 9-07 by mouth 2 it y of mg capsule 00:00: (two) [place] 00 times Medical daily with Branch meals. [...] it y of mg capsule 00:00: (two) [place] 00 times Medical daily with Branch meals. ziprasidone 2016-0 Yes 60mg Take 60 mg [facility] (GEODON) 60 9-07 by mouth 2 it y of mg capsule 00:00: (two) [place] 00 times Medical daily with Branch meals. ziprasidone 2016-0 Yes 60mg Take 60 mg [facility] (GEODON) 60 9-07 by mouth 2 it y of mg capsule 00:00: (two) [place] 00 times Medical daily with Branch meals. [...] it y of mg capsule 00:00: (two) [place] 00 times Medical daily with Branch meals. ziprasidone 2016-0 Yes 60mg Take 60 mg [facility] (GEODON) 60 9-07 by mouth 2 it y of mg capsule 00:00: (two) [place] 00 times Medical daily with Branch meals. ziprasidone 2016-0 Yes 60mg Take 60 mg [facility] (GEODON) 60 9-07 by mouth 2 it y of mg capsule 00:00: (two) [place] 00 times Medical daily with Branch meals. ziprasidone 2016-0 Yes 60mg Take 60 mg [facility] (GEODON) 60 9-07 by mouth 2 it y of mg capsule 00:00: (two) [place] 00 times Medical daily with Branch meals. ziprasidone 2016-0 Yes 60mg Take 60 mg [facility] (GEODON) 60 9-07 by mouth 2 it y of mg capsule 00:00: (two) [place] 00 times Medical daily with Branch meals. ziprasidone 2016-0 Yes 60mg Take 60 mg [facility] (GEODON) 60 9-07 by mouth 2 it y of mg capsule 00:00: (two) [place] 00 times Medical daily with Branch meals. ziprasidone 2016-0 Yes 60mg Take 60 mg [facility] (GEODON) 60 9-07 by mouth 2 it y of mg capsule 00:00: (two) [place] 00 times Medical daily with Branch meals. ziprasidone 2016-0 Yes 60mg Take 60 mg [facility] (GEODON) 60 9-07 by mouth 2 it y of mg capsule 00:00: (two) [place] 00 times Medical daily with Branch meals. EPITOL 200 2016-0 Yes 200mg Take 200 [facility] [place] mg tablet 8-31 mg by ity of 00:00: mouth 2 [place] (two) Medical times Branch daily. EPITOL 200 2016-0 Yes 200mg Take 200 [facility] [place] mg tablet 8-31 mg by ity of 00:00: mouth 2 [place] [address] (two) Medical times Branch daily. EPITOL 200 [...] :00 (two) Medical times Branch daily. buPROPion 0 Yes 100mg Take 100 Uni vers SR 8-29 mg by ity of (WELLBUTRIN 00:00: mouth [place] SR) 100 mg 00 daily. Medical SR tablet Branch buPROPion 0 Yes 15mg Take 15 mg [facility] [place] [...] 4 ity of (WELLBUTRIN 00:00: 00:00 (four) [place] as SR) 100 mg 00 :00 times Medical SR tablet daily as Branch needed for Other (anxiety). omeprazole 0 Yes 40mg Take 40 mg [...] 00:00: daily. [place] capsule Medical Branch omeprazole 2015-0 Yes 40mg Take 40 mg [...] f 40 mg 00:00: daily. [place] capsule [facility] omeprazole 2016-0 Yes 40mg Take 40 mg U nivers (PRILOSEC) 8-25 by mouth ity o f 40 mg 00:00: daily. [place] capsule Medical [place] omeprazole 2016-0 Yes 40mg Take 40 mg U nivers (PRILOSEC) 8-25 by mouth ity o f 40 mg 00:00: daily. [place] capsule [facility] omeprazole 2016-0 Yes 40mg Take 40 mg U nivers (PRILOSEC) 8-25 by mouth ity o f 40 mg 00:00: daily. [place] capsule [facility] omeprazole 2016-0 Yes 40mg Take 40 mg U nivers (PRILOSEC) 8-25 by mouth ity o f 40 mg 00:00: daily. [place] capsule [facility] omeprazole 2016-0 Yes 40mg Take 40 mg U nivers (PRILOSEC) 8-25 by mouth ity o f 40 mg 00:00: daily. [place] capsule [facility] omeprazole 2016-0 Yes 40mg Take 40 mg U nivers (PRILOSEC) 8-25 by mouth ity o f 40 mg 00:00: daily. [place] capsule [facility] omeprazole 2016-0 Yes 40mg Take 40 mg U nivers (PRILOSEC) 8-25 by mouth ity o f 40 mg 00:00: daily. [place] capsule [facility] omeprazole 2016-0 Yes 40mg Take 40 mg U nivers (PRILOSEC) 8-25 by mouth ity o f 40 mg 00:00: daily. [place] capsule [facility] omeprazole 2016-0 Yes 40mg Take 40 mg U nivers (PRILOSEC) 8-25 by mouth ity o f 40 mg 00:00: daily. [place] capsule [facility] omeprazole 2016-0 Yes 40mg Take 40 mg U nivers (PRILOSEC) 8-25 by mouth ity o f 40 mg 00:00: daily. [place] capsule [facility] omeprazole 2016-0 Yes 40mg Take 40 mg U nivers (PRILOSEC) 8-25 by mouth ity o f 40 mg 00:00: daily. [place] capsule [facility] omeprazole 2016-0 Yes 40mg Take 40 mg U nivers (PRILOSEC) 8-25 by mouth ity o f 40 mg 00:00: daily. [place] capsule Medical [place] omeprazole 2016-0 Yes 40mg Take 40 mg U nivers (PRILOSEC) 8-25 by mouth ity o f 40 mg 00:00: daily. [place] capsule Medical [place] omeprazole 2016-0 Yes 40mg Take 40 mg U nivers (PRILOSEC) 8-25 by mouth ity o f 40 mg 00:00: daily. [place] capsule [facility] omeprazole 2016-0 Yes 40mg Take 40 mg U nivers (PRILOSEC) 8-25 by mouth ity o f 40 mg 00:00: daily. [place] capsule [facility] omeprazole 2016-0 Yes 40mg Take 40 mg U nivers (PRILOSEC) 8-25 by mouth ity o f 40 mg 00:00: daily. [place] capsule Medical [place] omeprazole 20160 Yes 40mg Take 40 mg U nivers (PRILOSEC) 8-25 by mouth ity o f 40 mg 00:00: daily. [place] capsule [facility] omeprazole [id number] Yes 40mg Take 40 mg U nivers (PRILOSEC) 8-25 by mouth ity o f 40 mg 00:00: daily. [place] capsule [facility] omeprazole 2016-0 Yes 40mg Take 40 mg U nivers (PRILOSEC) 8-25 by mouth ity o f 40 mg 00:00: daily. [place] capsule [facility] omeprazole 2016-0 Yes 40mg Take 40 mg U nivers (PRILOSEC) 8-25 by mouth ity o f 40 mg 00:00: daily. [place] capsule [facility] omeprazole 2016-0 Yes 40mg Take 40 mg U nivers (PRILOSEC) 8-25 by mouth ity o f 40 mg 00:00: daily. [place] capsule [facility] omeprazole 2016-0 Yes 40mg Take 40 mg U nivers (PRILOSEC) 8-25 by mouth ity o f 40 mg 00:00: daily. [place] capsule [facility] omeprazole 2016-0 Yes 40mg Take 40 mg U nivers (PRILOSEC) 8-25 by mouth ity o f 40 mg 00:00: daily. [place] capsule [facility] omeprazole 2016-0 Yes 40mg Take 40 mg U nivers (PRILOSEC) 8-25 by mouth ity o f 40 mg 00:00: daily. [place] capsule 00 Medical Branch omeprazole 2016-0 2020- 40mg Take 40 mg [facility] (PRILOSEC) 8-25 03-16 by mouth ity of 40 mg 00:00: 00:00 daily. [place] capsule 00 :00 Medical Branch Immunizations Ordered Filled Immunization Date Status Comments [facility] e Immunization Name Name SARS-COV-2 COVID-19 2021-05-24 Completed Unive rsity of MODERNA VACCINE 00:00:00 [place] [facility] Branch SARS-COV-2 COVID-19 2021-05-24 Completed Unive rsity of MODERNA VACCINE 00:00:00 [place] [facility] Branch SARS-COV-2 COVID-19 2021-05-24 Completed Unive rsity of MODERNA VACCINE 00:00:00 [place] [facility] Branch SARS-COV-2 COVID-19 2021-05-24 Completed Unive rsity of MODERNA VACCINE 00:00:00 [place] [facility] Branch SARS-COV-2 COVID-19 2021-05-24 Completed Unive rsity of MODERNA VACCINE 00:00:00 [place] [facility] Branch SARS-COV-2 COVID-19 2021-05-24 Completed Unive rsity of MODERNA VACCINE 00:00:00 [place] [facility] Branch SARS-COV-2 COVID-19 2021-05-24 Completed Unive rsity of MODERNA VACCINE 00:00:00 [place] [facility] Branch SARS-COV-2 COVID-19 2021-05-24 Completed Unive rsity of MODERNA VACCINE 00:00:00 [place] [facility] Branch SARS-COV-2 COVID-19 2020-10-18 Completed Unive rsity of MODERNA VACCINE 00:00:00 [place] [facility] Branch SARS-COV-2 COVID-19 2020-10-18 Completed Unive rsity of MODERNA VACCINE 00:00:00 [place] [facility] Branch SARS-COV-2 COVID-19 2020-10-18 Completed Unive rsity of MODERNA VACCINE 00:00:00 [facility] SARS-COV-2 COVID-19 2020-10-18 Completed Unive rsity of MODERNA VACCINE 00:00:00 [place] [facility] Branch SARS-COV-2 COVID-19 2020-10-18 Completed Unive rsity [...] Unive rsity of MODERNA VACCINE 00:00:00 [place] [facility] ical Branch SARS-COV-2 COVID-19 2020-09-20 Completed Unive rsity of MODERNA VACCINE 00:00:00 [place] Med ical Branch SARS-COV-2 COVID-19 2020-09-20 Completed Unive rsity of MODERNA VACCINE 00:00:00 [place] [facility] ical Branch SARS-COV-2 COVID-19 2020-09-20 Completed Unive rsity of MODERNA VACCINE 00:00:00 [facility] ical Branch SARS-COV-2 COVID-19 2020-09-20 Completed Unive rsity of MODERNA VACCINE 00:00:00 [place] [facility] ical Branch SARS-COV-2 COVID-19 2020-09-20 Completed Unive rsity of MODERNA VACCINE 00:00:00 [place] [facility] ical Branch SARS-COV-2 COVID-19 2020-09-20 Completed Unive rsity of MODERNA VACCINE 00:00:00 [place] [facility] ical Branch SARS-COV-2 COVID-19 2020-09-20 Completed Unive rsity of MODERNA VACCINE 00:00:00 [facility] ical Branch SARS-COV-2 COVID-19 2020-09-20 Completed Unive rsity of MODERNA VACCINE 00:00:00 [place] [facility] ical Branch SARS-COV-2 COVID-19 2020-09-20 Completed Unive rsity of MODERNA VACCINE 00:00:00 [place] [facility] ical Branch SARS-COV-2 COVID-19 2020-09-20 Completed Unive rsity of MODERNA VACCINE 00:00:00 [place] [facility] ical Branch SARS-COV-2 COVID-19 2020-09-20 Completed Unive rsity of MODERNA VACCINE 00:00:00 [facility] ical Branch SARS-COV-2 COVID-19 2020-09-20 Completed Unive rsity of MODERNA VACCINE 00:00:00 [facility] SARS-COV-2 COVID-19 2020-09-20 Completed Unive rsity of MODERNA VACCINE 00:00:00 [facility] SARS-COV-2 COVID-19 2020-09-20 Completed Unive rsity of MODERNA VACCINE 00:00:00 [facility] SARS-COV-2 COVID-19 2020-09-20 Completed Unive rsity of MODERNA VACCINE 00:00:00 [facility] SARS-COV-2 COVID-19 2020-09-20 Completed Unive rsity of MODERNA VACCINE 00:00:00 [facility] SARS-COV-2 COVID-19 2020-09-20 Completed Unive rsity of MODERNA VACCINE 00:00:00 [facility] SARS-COV-2 COVID-19 2020-09-20 Completed Unive rsity of MODERNA VACCINE 00:00:00 [facility] Influenza Virus 2020-08-09 Completed Universit y of Vaccine Quad .5 mL 00:00:00 [place] [facility] 6+ MO [place] TDAP 2020-08-09 Completed University of 00:00:00 [facility] Pneumococcal 2020-08-09 Completed University o f Polysaccharide, 00:00:00 [place] [facility] PPSV23 (PNEUMOVAX) [place] Influenza Virus 2020-08-09 Completed Universit y of Vaccine Quad .5 mL 00:00:00 [facility] 6+ MO [place] TDAP 2020-08-09 Completed University of 00:00:00 [facility] Pneumococcal 2020-08-09 Completed University o f Polysaccharide, 00:00:00 [place] [facility] PPSV23 (PNEUMOVAX) [place] Influenza Virus 2020-08-09 Completed Universit y of Vaccine Quad .5 mL 00:00:00 [facility] 6+ MO [place] TDAP 2020-08-09 Completed University of 00:00:00 [facility] Pneumococcal 2020-08-09 Completed University o f Polysaccharide, 00:00:00 [place] [facility] PPSV23 (PNEUMOVAX) [place] Influenza Virus 2020-08-09 Completed Universit y of Vaccine Quad .5 mL 00:00:00 [place] [facility] 6+ MO [place] TDAP 2020-08-09 Completed University of 00:00:00 [facility] Pneumococcal 2020-08-09 Completed University o f Polysaccharide, 00:00:00 [place] Med ical PPSV23 (PNEUMOVAX) Branch Influenza Virus 2020-08-09 Completed Universit y of Vaccine Quad .5 mL 00:00:00 [place] [facility] 6+ MO Branch TDAP 2020-08-09 Completed University of 00:00:00 [facility] Pneumococcal 2020-08-09 Completed University o f Polysaccharide, 00:00:00 [place] Med ical PPSV23 (PNEUMOVAX) Branch Influenza Virus 2020-08-09 Completed Universit y of Vaccine Quad .5 mL 00:00:00 [place] [facility] 6+ MO Branch TDAP 2020-08-09 Completed University of 00:00:00 [facility] Pneumococcal 2020-08-09 Completed University o f Polysaccharide, 00:00:00 [place] Med ical PPSV23 (PNEUMOVAX) Branch Influenza Virus 2020-08-09 Completed Universit y of Vaccine Quad .5 mL 00:00:00 [place] [facility] 6+ MO [place] TDAP 2020-08-09 Completed University of 00:00:00 [facility] Pneumococcal 2020-08-09 Completed University o f Polysaccharide, 00:00:00 [place] Med ical PPSV23 (PNEUMOVAX) Branch Influenza Virus 2020-08-09 Completed Universit y of Vaccine Quad .5 mL 00:00:00 [place] [facility] 6+ MO [place] TDAP 2020-08-09 Completed University of 00:00:00 [facility] Pneumococcal 2020-08-09 Completed University o f Polysaccharide, 00:00:00 [place] Med ical PPSV23 (PNEUMOVAX) Branch Influenza Virus 2020-08-09 Completed Universit y of Vaccine Quad .5 mL 00:00:00 [facility] 6+ MO [place] TDAP 2020-08-09 Completed University of 00:00:00 [facility] Pneumococcal 2020-08-09 Completed University o f Polysaccharide, 00:00:00 [place] Med ical PPSV23 (PNEUMOVAX) Branch Influenza Virus 2020-08-09 Completed Universit y of Vaccine Quad .5 mL 00:00:00 [facility] 6+ MO [place] TDAP 2020-08-09 Completed University of 00:00:00 [facility] Pneumococcal 2020-08-09 Completed University o f Polysaccharide, 00:00:00 [place] Med ical PPSV23 (PNEUMOVAX) Branch Influenza Virus 2020-08-09 Completed Universit y of Vaccine Quad .5 mL 00:00:00 [place] [facility] 6+ MO Branch TDAP 2020-08-09 Completed University of 00:00:00 [facility] Pneumococcal 2020-08-09 Completed University o f Polysaccharide, 00:00:00 [place] Med ical PPSV23 (PNEUMOVAX) Branch Influenza Virus 2020-08-09 Completed Universit y of Vaccine Quad .5 mL 00:00:00 [place] [facility] 6+ MO Branch TDAP 2020-08-09 Completed University of 00:00:00 [facility] Pneumococcal 2020-08-09 Completed University o f Polysaccharide, 00:00:00 [place] Med ical PPSV23 (PNEUMOVAX) Branch Influenza Virus 2020-08-09 Completed Universit y of Vaccine Quad .5 mL 00:00:00 [facility] 6+ MO Branch TDAP 2020-08-09 Completed University of 00:00:00 [facility] Pneumococcal 2020-08-09 Completed University o f Polysaccharide, 00:00:00 [place] Med ical PPSV23 (PNEUMOVAX) Branch Influenza Virus 2020-08-09 Completed Universit y of Vaccine Quad .5 mL 00:00:00 [facility] 6+ MO [place] TDAP 2020-08-09 Completed University of 00:00:00 [facility] Pneumococcal 2020-08-09 Completed University o f Polysaccharide, 00:00:00 [place] Med ical PPSV23 (PNEUMOVAX) Branch Influenza Virus 2020-08-09 Completed Universit y of Vaccine Quad .5 mL 00:00:00 [place] [facility] 6+ MO [place] TDAP 2020-08-09 Completed University of 00:00:00 [facility] Pneumococcal 2020-08-09 Completed University o f Polysaccharide, 00:00:00 [place] Med ical PPSV23 (PNEUMOVAX) Branch Influenza Virus 2020-08-09 Completed Universit y of Vaccine Quad .5 mL 00:00:00 [facility] 6+ MO Branch TDAP 2020-08-09 Completed University of 00:00:00 [facility] Pneumococcal 2020-08-09 Completed University o f Polysaccharide, 00:00:00 [place] Med ical PPSV23 (PNEUMOVAX) Branch Influenza Virus 2020-08-09 Completed Universit y of Vaccine Quad .5 mL 00:00:00 [place] [facility] 6+ MO Branch TDAP 2020-08-09 Completed University of 00:00:00 [facility] Pneumococcal 2020-08-09 Completed University o f Polysaccharide, 00:00:00 [place] Med ical PPSV23 (PNEUMOVAX) Branch Influenza Virus 2020-08-09 Completed Universit y of Vaccine Quad .5 mL 00:00:00 [place] [facility] 6+ MO Branch TDAP 2020-08-09 Completed University of 00:00:00 [facility] Pneumococcal 2020-08-09 Completed University o f Polysaccharide, 00:00:00 [place] Med ical PPSV23 (PNEUMOVAX) Branch Influenza Virus 2020-08-09 Completed Universit y of Vaccine Quad .5 mL 00:00:00 [place] [facility] 6+ MO [place] TDAP 2020-08-09 Completed University of 00:00:00 [facility] Pneumococcal 2020-08-09 Completed University o f Polysaccharide, 00:00:00 [place] Med ical PPSV23 (PNEUMOVAX) Branch Influenza Virus 2020-08-09 Completed Universit y of Vaccine Quad .5 mL 00:00:00 [place] [facility] 6+ MO [place] TDAP 2020-08-09 Completed University of 00:00:00 [facility] Pneumococcal 2020-08-09 Completed University o f Polysaccharide, 00:00:00 [place] Med ical PPSV23 (PNEUMOVAX) Branch Influenza Virus 2020-08-09 Completed Universit y of Vaccine Quad .5 mL 00:00:00 [place] [facility] 6+ MO [place] TDAP 2020-08-09 Completed University of 00:00:00 [facility] Pneumococcal 2020-08-09 Completed University o f Polysaccharide, 00:00:00 [place] Med ical PPSV23 (PNEUMOVAX) Branch Influenza Virus 2020-08-09 Completed Universit y of Vaccine Quad .5 mL 00:00:00 [place] [facility] 6+ MO [place] TDAP 2020-08-09 Completed University of 00:00:00 [facility] Pneumococcal 2020-08-09 Completed University o f Polysaccharide, 00:00:00 [place] Med ical PPSV23 (PNEUMOVAX) Branch Influenza Virus 2020-08-09 Completed Universit y of Vaccine Quad .5 mL 00:00:00 [place] [facility] 6+ MO [place] TDAP 2020-08-09 Completed University of 00:00:00 [facility] Pneumococcal 2020-08-09 Completed University o f Polysaccharide, 00:00:00 [place] Med ical PPSV23 (PNEUMOVAX) [place] Influenza Virus 2020-08-09 Completed Universit y of Vaccine Quad .5 mL 00:00:00 [place] [facility] 6+ MO Branch TDAP 2020-08-09 Completed University of 00:00:00 [facility] Pneumococcal 2020-08-09 Completed University o f Polysaccharide, 00:00:00 [place] Med ical PPSV23 (PNEUMOVAX) Branch Influenza Virus 2020-08-09 Completed Universit y of Vaccine Quad .5 mL 00:00:00 [place] [facility] 6+ MO Branch TDAP 2020-08-09 Completed University of 00:00:00 [facility] Pneumococcal 2020-08-09 Completed University o f Polysaccharide, 00:00:00 [place] Med ical PPSV23 (PNEUMOVAX) Branch Influenza Virus 2020-08-09 Completed Universit y of Vaccine Quad .5 mL 00:00:00 [facility] 6+ MO Branch TDAP 2020-08-09 Completed University of 00:00:00 [facility] Pneumococcal 2020-08-09 Completed University o f Polysaccharide, 00:00:00 [place] Med ical PPSV23 (PNEUMOVAX) Branch Influenza Virus 2020-08-09 Completed Universit y of Vaccine Quad .5 mL 00:00:00 [place] [facility] 6+ MO [place] TDAP 2020-08-09 Completed University of 00:00:00 [facility] Pneumococcal 2020-08-09 Completed University o f Polysaccharide, 00:00:00 [place] Med ical PPSV23 (PNEUMOVAX) Branch Influenza Virus 2020-08-09 Completed Universit y of Vaccine Quad .5 mL 00:00:00 [place] [facility] 6+ MO Branch TDAP 2020-08-09 Completed University of 00:00:00 [facility] Pneumococcal 2020-08-09 Completed University o f Polysaccharide, 00:00:00 [place] Med ical PPSV23 (PNEUMOVAX) Branch Influenza Virus 2020-08-09 Completed Universit y of Vaccine Quad .5 mL 00:00:00 [place] [facility] 6+ MO Branch TDAP 2020-08-09 Completed University of 00:00:00 [facility] Pneumococcal 2020-08-09 Completed University o f Polysaccharide, 00:00:00 [place] Med ical PPSV23 (PNEUMOVAX) Branch Influenza Virus 2020-08-09 Completed Universit y of Vaccine Quad .5 mL 00:00:00 [facility] 6+ MO Branch TDAP 2020-08-09 Completed University of 00:00:00 [facility] Pneumococcal 2020-08-09 Completed University o f Polysaccharide, 00:00:00 [place] Med ical PPSV23 (PNEUMOVAX) Branch Influenza Virus 2020-08-09 Completed Universit y of Vaccine Quad .5 mL 00:00:00 [facility] 6+ MO [place] TDAP 2020-08-09 Completed University of 00:00:00 [facility] Pneumococcal 2020-08-09 Completed University o f Polysaccharide, 00:00:00 [place] Med ical PPSV23 (PNEUMOVAX) Branch Influenza Virus 2020-08-09 Completed Universit y of Vaccine Quad .5 mL 00:00:00 [place] [facility] 6+ MO [place] TDAP 2020-08-09 Completed University of 00:00:00 [facility] Pneumococcal 2020-08-09 Completed University o f Polysaccharide, 00:00:00 [place] Med ical PPSV23 (PNEUMOVAX) Branch Influenza Virus 2020-08-09 Completed Universit y of Vaccine Quad .5 mL 00:00:00 [place] [facility] 6+ MO [place] TDAP 2020-08-09 Completed University of 00:00:00 [facility] Influenza Virus 2020-08-09 Completed [facility] Vaccine Quad .5 mL 00:00:00 [facility] 6+ MO [place] TDAP 2020-08-09 Completed University of 00:00:00 [facility] Pneumococcal 2020-08-09 Completed University o f Polysaccharide, 00:00:00 [place] [facility] PPSV23 (PNEUMOVAX) Branch Pneumococcal 2020-08-09 Completed University o f Polysaccharide, 00:00:00 [place] [facility] PPSV23 (PNEUMOVAX) Branch Influenza Virus 2020-08-09 Completed Universit y of Vaccine Quad .5 mL 00:00:00 [facility] 6+ MO [place] TDAP 2020-08-09 Completed University of 00:00:00 [facility] Pneumococcal 2020-08-09 Completed University o f Polysaccharide, 00:00:00 [place] [facility] PPSV23 (PNEUMOVAX) Branch Influenza Virus 2020-08-09 Completed Universit y of Vaccine Quad .5 mL 00:00:00 [facility] 6+ MO [place] TDAP 2020-08-09 Completed University of 00:00:00 [facility] Pneumococcal 2020-08-09 Completed University o f Polysaccharide, 00:00:00 [place] [facility] PPSV23 (PNEUMOVAX) Branch Influenza Virus 2020-08-09 Completed Universit y of Vaccine Quad .5 mL 00:00:00 [facility] 6+ MO Branch TDAP 2020-08-09 Completed University of 00:00:00 [facility] Pneumococcal 2020-08-09 Completed University o f Polysaccharide, 00:00:00 [place] [facility] PPSV23 (PNEUMOVAX) Branch Influenza Virus 2020-08-09 Completed Universit y of Vaccine Quad .5 mL 00:00:00 [facility] 6+ MO Branch TDAP 2020-08-09 Completed University of 00:00:00 [facility] Pneumococcal 2020-08-09 Completed University o f Polysaccharide, 00:00:00 [place] [facility] PPSV23 (PNEUMOVAX) Branch Influenza Virus 2020-08-09 Completed [facility]it y of Vaccine Quad .5 mL 00:00:00 [facility] 6+ MO Branch TDAP 2020-08-09 Completed University of 00:00:00 [facility] Pneumococcal 2020-08-09 Completed University o f Polysaccharide, 00:00:00 [place] [facility] PPSV23 (PNEUMOVAX) Branch Influenza Virus 2020-08-09 Completed [facility]it y of Vaccine Quad .5 mL 00:00:00 [facility] 6+ MO [place] TDAP 2020-08-09 Completed University of 00:00:00 [facility] Pneumococcal 2020-08-09 Completed University o f Polysaccharide, 00:00:00 [place] [facility] PPSV23 (PNEUMOVAX) Branch Influenza Virus 2020-08-09 Completed [facility]it y of Vaccine Quad .5 mL 00:00:00 [facility] 6+ MO Branch TDAP 2020-08-09 Completed University of 00:00:00 [facility] Pneumococcal 2020-08-09 Completed University o f Polysaccharide, 00:00:00 [place] [facility] PPSV23 (PNEUMOVAX) Branch Influenza Virus 2020-08-09 Completed [facility]it y of Vaccine Quad .5 mL 00:00:00 [facility] 6+ MO Branch TDAP 2020-08-09 Completed University of 00:00:00 [facility] Pneumococcal 2020-08-09 Completed University o f Polysaccharide, 00:00:00 [place] [facility] PPSV23 (PNEUMOVAX) Branch Influenza Virus 2020-08-09 Completed Universit y of Vaccine Quad .5 mL 00:00:00 [facility] 6+ MO Branch TDAP 2020-08-09 Completed University of 00:00:00 [facility] Pneumococcal 2020-08-09 Completed University o f Polysaccharide, 00:00:00 [facility] PPSV23 (PNEUMOVAX) Branch PPD (TB) 2016-01-17 Completed University of 00:00:00 [facility] PPD (TB) 2016-01-17 Completed University of 00:00:00 [facility] PPD (TB) 2016-01-17 Completed University of 00:00:00 [facility] PPD (TB) 2016-01-17 Completed University of 00:00:00 [facility] PPD (TB) 2016-01-17 Completed University of 00:00:00 [facility] PPD (TB) 2016-01-17 Completed University of 00:00:00 [facility] PPD (TB) 2016-01-17 Completed University of 00:00:00 [facility] PPD (TB) 2016-01-17 Completed University of 00:00:00 [facility] PPD (TB) 2016-01-17 Completed University of 00:00:00 [facility] PPD (TB) 2016-01-17 Completed University of 00:00:00 [facility] PPD (TB) 2016-01-17 Completed University of 00:00:00 [facility] PPD (TB) 2016-01-17 Completed University of 00:00:00 [facility] PPD (TB) 2016-01-17 Completed University of 00:00:00 [facility] PPD (TB) 2016-01-17 Completed University of 00:00:00 [facility] PPD (TB) 2016-01-17 Completed University of 00:00:00 [facility] PPD (TB) 2016-01-17 Completed University of 00:00:00 [facility] PPD (TB) 2016-01-17 Completed University of 00:00:00 [facility] PPD (TB) 2016-01-17 Completed University of 00:00:00 [facility] PPD (TB) 2016-01-17 Completed University of 00:00:00 [facility] PPD (TB) 2016-01-17 Completed University of 00:00:00 [facility] PPD (TB) 2016-01-17 Completed University of 00:00:00 [facility] PPD (TB) 2016-01-17 Completed University of 00:00:00 [facility] PPD (TB) 2016-01-17 Completed University of 00:00:00 [facility] PPD (TB) 2016-01-17 Completed University of 00:00:00 [facility] PPD (TB) 2016-01-17 Completed University of 00:00:00 [facility] PPD (TB) 2016-01-17 Completed [facility] of 00:00:00 [facility] PPD (TB) 2016-01-17 Completed University of 00:00:00 [facility] PPD (TB) 2016-01-17 Completed University of 00:00:00 [facility] PPD (TB) 2016-01-17 Completed [facility] of 00:00:00 [facility] PPD (TB) 2016-01-17 Completed [facility] of 00:00:00 [facility] PPD (TB) 2016-01-17 Completed [facility] of 00:00:00 [facility] PPD (TB) 2016-01-17 Completed [facility] of 00:00:00 [facility] PPD (TB) 2016-01-17 Completed University of 00:00:00 [facility] PPD (TB) 2016-01-17 Completed University of 00:00:00 [facility] PPD (TB) 2016-01-17 Completed University of 00:00:00 [facility] PPD (TB) 2016-01-17 Completed University of 00:00:00 [facility] PPD (TB) 2016-01-17 Completed [facility] of 00:00:00 [facility] PPD (TB) 2016-01-17 Completed University of 00:00:00 [facility] PPD (TB) 2016-01-17 Completed [facility] of 00:00:00 [facility] PPD (TB) 2016-01-17 Completed University of 00:00:00 [facility] PPD (TB) 2016-01-17 Completed University of 00:00:00 [facility] PPD (TB) 2016-01-17 Completed University of 00:00:00 [facility] PPD (TB) 2016-01-17 Completed University of 00:00:00 [facility] PPD (TB) 2016-01-17 Completed University of 00:00:00 [facility] PPD (TB) 2016-01-17 Completed University of 00:00:00 [facility] PPD (TB) 2016-01-17 Completed University of 00:00:00 [facility] PPD (TB) 2016-01-17 Completed University of 00:00:00 [facility] PPD (TB) 2016-01-17 Completed University of 00:00:00 [facility] PPD (TB) 2016-01-17 Completed University of 00:00:00 [facility] PPD (TB) 2016-01-17 Completed University of 00:00:00 [facility] PPD (TB) 2016-01-17 Completed University of 00:00:00 [facility] PPD (TB) 2016-01-17 Completed University of 00:00:00 [facility] PPD (TB) 2016-01-17 Completed University of 00:00:00 [facility] PPD (TB) 2016-01-17 Completed University of 00:00:00 [facility] PPD (TB) 2016-01-17 Completed University of 00:00:00 [facility] PPD (TB) 2016-01-17 Completed University of 00:00:00 [facility] PPD (TB) 2016-01-17 Completed University of 00:00:00 [facility] PPD (TB) 2016-01-17 Completed University of 00:00:00 [facility] PPD (TB) 2016-01-17 Completed University of 00:00:00 [facility] PPD (TB) 2016-01-17 Completed University of 00:00:00 [facility] PPD (TB) 2016-01-17 Completed University of 00:00:00 [facility] Vital Signs Vital Name Observation Time Observation Value Comments Source Systolic blood 2021-07-30 18:30:00 96 mm[Hg] Univer sity of pressure [facility] Diastolic blood 2021-07-30 18:30:00 54 mm[Hg] Unive rsity of pressure [facility] Heart rate 2021-07-30 18:30:00 67 /min [facility] Respiratory rate 2021-07-30 18:30:00 18 /min [facility] Body temperature 2021-07-30 17:10:00 36.22 Leila [facility] Body weight 2021-07-30 17:10:00 83.915 kg [facility] BMI 2021-07-30 17:10:00 25.80 kg/m2 [facility] Oxygen saturation in 2021-07-30 17:10:00 98 /min [facility] Arterial blood by [facility] Pulse oximetry Branch Systolic blood 2021-03-10 19:08:00 93 mm[Hg] Univer sity of pressure [facility] Diastolic blood 2021-03-10 19:08:00 60 mm[Hg] Unive rsity of pressure [facility] Heart rate 2021-03-10 19:06:00 84 /min [facility] Body height 2021-03-10 19:06:00 180.3 cm [facility] Body weight 2021-03-10 19:06:00 88.451 kg [facility] BMI 2021-03-10 19:06:00 27.20 kg/m2 [facility] Oxygen saturation in 2021-03-10 19:06:00 98 /min University of Arterial blood by [facility] Pulse oximetry Branch Systolic blood 2020-12-09 16:15:00 111 mm[Hg] Univer sity of pressure [facility] Diastolic blood 2020-12-09 16:15:00 74 mm[Hg] Unive rsity of pressure [facility] Heart rate 2020-12-09 16:15:00 98 /min [facility]i [facility] Body temperature 2020-12-09 16:15:00 36.39 Leila Univ ersity of [facility] Respiratory rate 2020-12-09 16:15:00 18 /min Univ ersity of [facility] Body height 2020-12-09 16:15:00 180.3 cm [facility] Body weight 2020-12-09 16:15:00 87.544 kg [facility] BMI 2020-12-09 16:15:00 26.92 kg/m2 [facility] Oxygen saturation in 2020-12-09 16:15:00 97 /min University of Arterial blood by [facility] Pulse oximetry Branch Systolic blood 2020-11-25 16:22:00 80 mm[Hg] Univer sity of pressure [facility] Diastolic blood 2020-11-25 16:22:00 56 mm[Hg] Unive rsity of pressure [facility] Heart rate 2020-11-25 16:22:00 88 /min [facility] Body temperature 2020-11-25 16:22:00 36.22 Leila Univ ersity of [facility] Respiratory rate 2020-11-25 16:22:00 18 /min Univ ersity of [facility] Body weight 2020-11-25 16:22:00 88.451 kg [facility]i [facility] BMI 2020-11-25 16:22:00 27.20 kg/m2 [facility] Oxygen saturation in 2020-11-25 16:22:00 96 /min University of Arterial blood by [facility] Pulse oximetry Branch Systolic blood 2020-11-22 21:50:00 105 mm[Hg] Univer sity of pressure [facility] Diastolic blood 2020-11-22 21:50:00 88 mm[Hg] Unive rsity of pressure [facility] Heart rate 2020-11-22 21:50:00 77 /min [facility] Oxygen saturation in 2020-11-22 21:50:00 97 /min University of Arterial blood by [facility] Pulse oximetry Branch Respiratory rate 2020-11-22 20:19:00 20 /min Univ ersity of [facility] Body temperature 2020-11-22 20:17:00 36.22 Leila Univ ersity of [facility] Body weight 2020-11-21 23:04:00 86.183 kg [facility] BMI 2020-11-21 23:04:00 26.50 kg/m2 [facility] Systolic blood 2020-11-09 19:00:00 114 mm[Hg] Univer sity of pressure [facility] Diastolic blood 2020-11-09 19:00:00 67 mm[Hg] Unive rsity of pressure [facility] Heart rate 2020-11-09 19:00:00 75 /min [facility] Respiratory rate 2020-11-09 19:00:00 19 /min Univ ersity of [facility] Oxygen saturation in 2020-11-09 19:00:00 92 /min University of Arterial blood by [facility] Pulse oximetry Branch Body temperature 2020-11-09 17:53:00 36.89 Leila Univ ersity of [facility] Body weight 2020-11-09 17:53:00 90.719 kg [facility] BMI 2020-11-09 17:53:00 27.89 kg/m2 [facility] Systolic blood 2020-11-09 17:19:00 65 mm[Hg] Univer sity of pressure [facility] Diastolic blood 2020-11-09 17:19:00 44 mm[Hg] Unive rsity of pressure [facility] Heart rate 2020-11-09 17:18:00 108 /min Universi ty of [facility] Body temperature 2020-11-09 17:18:00 36.5 Leila Univ ersity of [facility] Respiratory rate 2020-11-09 17:18:00 26 /min Univ ersity of [facility] Body height 2020-11-09 17:18:00 180.3 cm Universi ty of [facility] Body weight 2020-11-09 17:18:00 91.445 kg [facility] BMI 2020-11-09 17:18:00 28.12 kg/m2 Universi ty of [facility] Systolic blood 2020-11-08 16:48:00 73 mm[Hg] Univer sity of pressure [facility] Diastolic blood 2020-11-08 16:48:00 46 mm[Hg] Unive rsity of pressure [facility] Heart rate 2020-11-08 16:48:00 87 /min [facility] [place] [facility] [place] Body temperature 2020-11-08 16:48:00 36.56 Leila Univ ersity of [facility] Body height 2020-11-08 16:48:00 180.3 cm [facility] Body weight 2020-11-08 16:48:00 91.218 kg [facility] BMI 2020-11-08 16:48:00 28.05 kg/m2 Universi ty of [facility] Oxygen saturation in 2020-11-08 16:48:00 97 /min [facility] Arterial blood by [facility] Pulse oximetry Branch Systolic blood 2020-11-02 21:56:00 94 mm[Hg] Univer sity of pressure [facility] Diastolic blood 2020-11-02 21:56:00 61 mm[Hg] Unive rsity of pressure [facility] Heart rate 2020-11-02 21:56:00 62 /min Universi ty of [facility] Body temperature 2020-11-02 21:56:00 37.28 Leila Univ ersity of [facility] Respiratory rate 2020-11-02 21:56:00 18 /min Univ ersity of [facility] Body height 2020-11-02 21:56:00 180.3 cm [facility] Body weight 2020-11-02 21:56:00 86.183 kg [facility] BMI 2020-11-02 21:56:00 26.50 kg/m2 [facility] Oxygen saturation in 2020-11-02 21:56:00 95 /min University of Arterial blood by [facility] Pulse oximetry Branch Systolic blood 2020-10-05 18:00:00 128 mm[Hg] Univer sity of pressure [facility] Diastolic blood 2020-10-05 18:00:00 77 mm[Hg] Unive rsity of pressure [facility] Heart rate 2020-10-05 18:00:00 82 /min [facility] Body temperature 2020-10-05 18:00:00 36.72 Leila Univ ersity of [facility] Respiratory rate 2020-10-05 18:00:00 20 /min Univ ersity of [facility] Oxygen saturation in 2020-10-05 18:00:00 99 /min University of Arterial blood by [facility] Pulse oximetry Branch Body weight 2020-10-05 10:27:00 85.872 kg [facility] BMI 2020-10-05 10:27:00 26.40 kg/m2 [facility] Systolic blood 2020-09-01 01:00:00 96 mm[Hg] Univer sity of pressure [facility] Diastolic blood 2020-09-01 01:00:00 72 mm[Hg] Unive rsity of pressure [facility] Heart rate 2020-09-01 01:00:00 80 /min [facility] Respiratory rate 2020-09-01 01:00:00 20 /min Univ ersity of [facility] Oxygen saturation in 2020-09-01 01:00:00 97 /min University of Arterial blood by [facility] Pulse oximetry Branch Body temperature 2020-09-01 00:05:00 36.39 Leila Univ ers[facility] of [facility] Body height 2020-09-01 00:05:00 180.3 cm [facility] Body weight 2020-09-01 00:05:00 86.183 kg [facility] BMI 2020-09-01 00:05:00 26.50 kg/m2 [facility] Systolic blood 2020-08-20 21:00:00 116 mm[Hg] Univer sity of pressure [facility] Diastolic blood 2020-08-20 21:00:00 70 mm[Hg] Unive rsity of pressure [facility] Heart rate 2020-08-20 21:00:00 99 /min [facility] Body temperature 2020-08-20 21:00:00 36.72 Leila Univ ers[facility] Respiratory rate 2020-08-20 21:00:00 19 /min Univ ersity of [facility] Oxygen saturation in 2020-08-20 21:00:00 96 /min University of Arterial blood by [place] [facility] Pulse oximetry Branch Body weight 2020-08-20 20:35:00 90.266 kg [facility] BMI 2020-08-20 20:35:00 27.75 kg/m2 [facility] Systolic blood 2020-08-09 16:53:00 102 mm[Hg] Univer sity of pressure [facility] Diastolic blood 2020-08-09 16:53:00 69 mm[Hg] Unive rsity of pressure [facility] Heart rate 2020-08-09 16:53:00 83 /min [facility] Body temperature 2020-08-09 16:53:00 36.44 Leila [facility] Respiratory rate 2020-08-09 16:53:00 20 /min Univ ersity of [facility] Body height 2020-08-09 16:53:00 180.3 cm [facility] Body weight 2020-08-09 16:53:00 90.674 kg [facility] BMI 2020-08-09 16:53:00 27.88 kg/m2 [facility] Oxygen saturation in 2020-08-09 16:53:00 98 /min University of Arterial blood by [place] [facility] Pulse oximetry Branch Systolic blood 2020-08-03 17:00:00 114 mm[Hg] Univer sity of pressure [facility] Diastolic blood 2020-08-03 17:00:00 61 mm[Hg] Unive rsity of pressure [facility] Heart rate 2020-08-03 17:00:00 74 /min [facility]i ty [facility] Respiratory rate 2020-08-03 17:00:00 20 /min Univ ersity of [facility] Oxygen saturation in 2020-08-03 17:00:00 97 /min University of Arterial blood by [facility] Pulse oximetry Branch Body temperature 2020-08-03 15:58:00 36.44 Leila [facility] Body weight 2020-08-03 15:58:00 90.719 kg [facility] BMI 2020-08-03 15:58:00 27.89 kg/m2 [facility] Systolic blood 2020-05-16 01:16:00 126 mm[Hg] Univer sity of pressure [facility] Diastolic blood 2020-05-16 01:16:00 85 mm[Hg] Unive rsity of pressure [facility] Heart rate 2020-05-16 01:16:00 71 /min [facility] Respiratory rate 2020-05-16 01:16:00 30 /min Univ ersity of [facility] Oxygen saturation in 2020-05-16 01:16:00 95 /min University of Arterial blood by [facility] Pulse oximetry Branch Body temperature 2020-05-15 22:33:00 37 Leila [facility] Body height 2020-05-15 22:33:00 180.3 cm [facility] Body weight 2020-05-15 22:33:00 95.255 kg [facility] BMI 2020-05-15 22:33:00 29.29 kg/m2 [facility] Systolic blood 2020-03-22 01:00:00 101 mm[Hg] Univer sity of pressure [facility] Diastolic blood 2020-03-22 01:00:00 89 mm[Hg] Unive rsity of pressure [facility] Heart rate 2020-03-22 01:00:00 85 /min [facility] Respiratory rate 2020-03-22 01:00:00 28 /min Univ ersity of [facility] Oxygen saturation in 2020-03-22 01:00:00 94 /min University of Arterial blood by [facility] Pulse oximetry Branch Body temperature 2020-03-22 00:54:00 36.61 Leila Univ [facility] Body weight 2020-03-22 00:54:00 95.255 kg [facility] BMI 2020-03-22 00:54:00 29.29 kg/m2 [facility] Systolic blood 2020-01-12 21:06:00 97 mm[Hg] Univer sity of pressure [facility] Diastolic blood 2020-01-12 21:06:00 72 mm[Hg] Unive [facility] Heart rate 2020-01-12 21:06:00 90 /min [facility] Body temperature 2020-01-12 21:06:00 36.22 Leila [facility] Respiratory rate 2020-01-12 21:06:00 18 /min [facility] Body height 2020-01-12 21:06:00 180.3 cm [facility] Body weight 2020-01-12 21:06:00 97.614 kg [facility] BMI 2020-01-12 21:06:00 30.01 kg/m2 [facility] Oxygen saturation in 2020-01-12 21:06:00 95 /min [facility] Arterial blood by [facility] Pulse oximetry Branch Procedures Procedure Date / Time Performing Clinician Source Performed XR CHEST 1 VW 2021-07-30 17:31:03 Stacie Evangelista [facility] LIPASE 2021-07-30 17:20:00 Stacie Evangelista [facility] TROPONIN I 2021-07-30 17:20:00 Stacie Evangelista [facility] THYROID STIMULATING 2021-07-30 17:20:00 Stacie Evangelista [facility] HORMONE [facility] COMP. METABOLIC PANEL 2021-07-30 17:20:00 Stacie Evangelista [facility] ([id number]) [facility] CARBAMAZEPINE 2021-07-30 17:20:00 Stacie Evangelista [facility] CBC WITH DIFF 2021-07-30 17:20:00 Stacie Evangelista [facility] PROTHROMBIN TIME / INR 2021-07-30 17:20:00 Stacie Evangelista [facility] ACTIVATED PARTIAL 2021-07-30 17:20:00 Stacie Evangelista [facility] THRMPLAS [facility] N-TERMINAL PRO-BNP 2021-07-30 17:20:00 Stacie Evangelista [facility] SARS-COV-2 COVID-19 2021-05-24 20:15:00 [facility] VACCINE,0.5ML,IM [facility] (MODERNA) CBC WITH DIFF 2020-12-09 16:54:00 Isidoro Gentile [facility] GLYCOSYLATED HEMOGLOBIN 2020-12-09 16:54:00 Isidoro Gentile [facility] (A1C) [facility] POCT GLUCOSE (AUTOMATED) 2020-11-22 20:58:00 [facility] 2020-11-22 16:27:00 Orly Burnett [facility] POCT GLUCOSE (AUTOMATED) 2020-11-22 12:38:00 Orly Burnett [facility] CORTISOL AM 2020-11-22 08:20[facility]00 [facility]OLIC PANEL 2020-11-22 08:20[facility], CL, CO2, GLUCOSE, Medica l Branch BUN, CREATININE, CA) CBC WITH DIFF 2020-11-22 08:20[facility] 2020-11-22 01:06:00 Jae Rocha [facility] ADC / LCC - DRUG SCREEN 2020-11-22 01:06:00 Jae Rocha [facility] BLOOD CULTURE SCREEN 2020-11-22 00:14:00 Jae Rocha [facility] BLOOD CULTURE SCREEN 2020-11-21 23:57:00 Jae Rocha [facility] COVID-19 (ID NOW RAPID 2020-11-21 23:44:00 Jae Rocha [facility] TESTING) [facility] SALICYLATE 2020-11-21 23:43:00 Jae Rocha [facility] FREE T4 2020-11-21 23:28:00 Jae Rocha [facility] HEPATIC FUNCTION PANEL 2020-11-21 23:28:00 Jae Rocha [facility] ([id number]) (ALB,T.PRO,BILI Medical Branch T,BU/BC,ALT,AST,ALK PHOS) AC PANEL 21 + LACTIC ACID 2020-11-21 23:28:00 [facility] KINASE 2020-11-21 23:19:00 Jae Rocha [facility] LIPASE 2020-11-21 23:19:00 Jae Rocha [facility] MAGNESIUM 2020-11-21 23:19:00 Jae Rocha [facility] TROPONIN I 2020-11-21 23:19:00 Jae Rocha [facility] BASIC METABOLIC PANEL 2020-11-21 23:19:00 Jae Rocha [facility] (NA, K, CL, CO2, GLUCOSE, Medica l Branch BUN, CREATININE, CA) ETHANOL 2020-11-21 23:19:00 Jae Rocha [facility] CBC WITH DIFF 2020-11-21 23:19:00 Jae Rocha [facility] PROTHROMBIN TIME / INR 2020-11-21 23:19:00 Jae Rocha [facility] ACTIVATED PARTIAL 2020-11-21 23:19:00 Jae Rocha [facility] THRMPLAS IFTIKHAR [facility] N-TERMINAL PRO-BNP 2020-11-21 23:19:00 Jae Rocha [facility] HB ECG ROUTINE & RHYTHM 2020-11-21 23:18:30 Jae Rocha [facility] NOTICE OF PRIVACY 2020-11-21 22:59:41 Doctor Braden, [facility] PRACTICES [facility] [place] CONSENT/REFUSAL FOR 2020-11-21 22:57:53 Doctor Unapearl, [facility] DIAGNOSIS AND TREATMENT [facility] COVID-19 (ID NOW RAPID 2020-11-09 19:19:00 Emigdio Ruelas [facility] TESTING) [facility] XR CHEST 1 VW 2020-11-09 18:43:51 Emigdio Ruelas [facility] TROPONIN I 2020-11-09 18:06:00 Emigdio Ruelas [facility] COMP. METABOLIC PANEL 2020-11-09 18:06:00 Emigdio Ruelas [facility] ([id number]) [facility] CBC WITH DIFF 2020-11-09 18:06:00 Emigdio Ruelas [facility] N-TERMINAL PRO-BNP 2020-11-09 18:06:00 Emigdio Ruelas [facility] CONSENT/REFUSAL FOR 2020-11-09 17:44:56 Doctor Unassigned, [facility] PO[facility] GLUCOSE (AUTOMATED) 2020-10-05 18:07:00 Bebeto [facility] AMMONIA, PLASMA 2020-10-05 16:37:00 Cass [facility] POCT GLUCOSE (AUTOMATED) 2020-10-05 13:57:00 Bebeto [facility] BASIC METABOLIC PANEL 2020-10-05 10:32:00 Bebeto [facility] (NA, K, CL, CO2, GLUCOSE, Medica l Branch BUN, CREATININE, CA) CBC WITH DIFF 2020-10-05 10:32:[address] [facility] ADC / LCC - DRUG SCREEN 2020-10-04 23:36:00 Bebeto [facility] POCT GLUCOSE (AUTOMATED) 2020-10-04 22:50:00 Bebeto [facility] POCT GLUCOSE (AUTOMATED) 2020-10-04 18:28:00 Bebeto [facility] POCT GLUCOSE (AUTOMATED) 2020-10-04 13:43:00 Bebeto [facility] BASIC METABOLIC PANEL 2020-10-04 11:42:00 [facility] (NA, K, CL, CO2, GLUCOSE, Medica l Branch BUN, CREATININE, CA) CBC WITH DIFF 2020-10-04 11:42:00 [facility] VW 2020-10-04 03:33:00 Santos Blanchard [facility] URINALYSIS 2020-10-04 01:13:00 Santos Blanchard [facility] COVID-19 (ID NOW RAPID 2020-10-04 00:43:00 Santos Blanchard [facility] TESTING) Medical Branch MAGNESIUM 2020-10-03 23:52:00 Santos Blanchard [facility] TROPONIN I 2020-10-03 23:52:00 Santos Blanchard [facility] COMP. METABOLIC PANEL 2020-10-03 23:52:00 Santos Blanchard [facility] ([id number]) Medical Branch ETHANOL 2020-10-03 23:52:[address] [facility] CBC WITH DIFF 2020-10-03 23:52:00 Santos Blanchard [facility] CT HEAD WO CONTRAST 2020-10-03 23:27:21 Santos Blanchard [facility] HB ECG ROUTINE & RHYTHM 2020-10-03 23:08:57 Santos Blanchard [facility] NOTICE OF PRIVACY 2020-10-03 22:55:02 Doctor Unassigned, [facility] PRACTICES [facility] CONSENT/REFUSAL FOR 2020-10-03 22:54:21 [facility] DIAGNOSIS AND TREATMENT [facility] CREATINE KINASE 2020-09-01 00:34:00 Jae Rocha [facility] FREE T4 2020-09-01 00:34:00 Aj [facility] HEPATIC FUNCTION PANEL 2020-09-01 00:34:00 Jae Rocha [facility] ([id number]) (ALB,T.PRO,[facility] T,BU/BC,ALT,AST,ALK PHOS) BASIC METABOLIC PANEL 2020-09-01 00:34:00 Aj Jae [facility] (NA, K, CL, CO2, GLUCOSE, Medica l Branch BUN, CREATININE, CA) SALICYLATE 2020-09-01 00:34:00 Aj [facility] ETHANOL 2020-09-01 00:34:00 Aj [facility] CBC WITH DIFF 2020-09-01 00:34:00 Aj [facility] URINALYSIS 2020-09-01 00:34:00 Aj [facility] ADC / LCC - DRUG SCREEN 2020-09-01 00:34:00 Aj Jae [facility] CT LUNG CANCER SCREENING 2020-08-30 21:32:31 Isidoro Gentile [facility] CONSENT/REFUSAL FOR 2020-08-20 20:27:17 Doctor Unassigned, [facility] DIAGNOSIS AND TREATMENT [facility] PNEUMOCOCCAL VACCINE, 2020-08-09 17:38:30 Isidoro Gentile [facility] 23-VALENT (PNEUMOVAX) Medical Br anch TDAP VACCINE, >11 YRS, IM 2020-08-09 17:35:06 Isidoro Gentile U [facility] FLU VACC ([id number]), 6+ 2020-08-09 17:35:06 Isidoro Gentile [facility] MONTHS, IM, QUAD Medical Branch XR CHEST 1 VW 2020-08-03 16:25:10 Blayne Obrien [facility] LIPASE 2020-08-03 16:07:00 Blayne Obrien [facility] TROPONIN I 2020-08-03 16:07:00 Blayne Obrien [facility] COMP. METABOLIC PANEL 2020-08-03 16:07:00 Blayne Obrien [facility] ([id number]) [facility] CBC WITH DIFF 2020-08-03 16:07:00 Blayne Obrien [facility] PROTHROMBIN TIME / INR 2020-08-03 16:07:00 Blayne Obrien [facility] ACTIVATED PARTIAL 2020-08-03 16:07:00 Blayne Obrien [facility] URINALYSIS 2020-05-15 23:36:00 Stacie Evangelista [facility] CREATINE KINASE 2020-05-15 22:44:00 Stacie Evangelista [facility] LIPASE 2020-05-15 22:44:00 Aj [facility] TROPONIN I 2020-05-15 22:44:00 Aj Jae [facility] COMP. METABOLIC PANEL 2020-05-15 22:44:00 Jae Rocha [facility] ([id number]) [facility] [place] CBC WITH DIFF 2020-05-15 22:44:00 Aj Jae [facility] PROTHROMBIN TIME / INR 2020-05-15 22:44:00 Jae Rocha [facility] ACTIVATED PARTIAL 2020-05-15 22:44:00 Jae Rocha [facility] EKG-12 LEAD 2020-05-15 22:39:32 Aj [facility] MEDICATION CORRESPONDENCE 2020-04-03 05:01:00 Doctor Unassigned, [facility] REFERRAL- 2020-03-10 05:01:00 Doctor Unassigned, [facility] REQUEST/RESPONSE [facility] URINALYSIS 2020-01-15 14:15:00 Isidoro Gentile [facility] FREE T4 2020-01-15 14:12:00 Isidoro Gentile [facility] THYROID STIMULATING 2020-01-15 14:12:00 Isidoro Gentile [facility] HORMONE [facility] COMP. METABOLIC PANEL 2020-01-15 14:12:00 Isidoro Gentile [facility] Conroetoribio [facility] ([id number]) [facility] LIPID PANEL (40757)(TOTAL 2020-01-15 14:12:00 [facility] CHOLE[facility]OL, [facility] TRIGLYCERIDES, HDL) CBC WITH DIFFERENTIAL 2020-01-15 14:12:00 Isidoro Gentile [facility] Conroetoribio [facility] GLYCOSYLATED HEMOGLOBIN 2020-01-15 14:12:00 Isidoro Gentile [facility] (A1C) Medical Branch FREE T3 2020-01-15 14:12:00 Isidoro Gentile [facility] ASSIGNMENT OF BENEFITS 2020-01-15 13:57:35 Doctor Unassigned, Un [facility] Encounters Start End Encounter Admission Attending Care Care Encounter Source Date/Time Date/Time Type Type Clinicians Facility Department ID 2021-10-04 [facility] [id number] 14:00:28 Rae [id number] [facility] 2021-10-04 Outpatient Lambert, [facility] [id number] 13:59:36 Rae [id number] [facility] 2021-10-04 [facility] [id number] 13:58:57 Rae [id number] [facility] 2021-10-04 Outpatient Lambert, [facility] [id number] 13:58:33 Rae [id number] [facility] 2021-10-04 Outpatient Lambert, [facility] [id number] 13:57:41 Rae [id number] [facility] 2021-10-04 Outpatient Lambert, [facility] [id number] 13:57:12 Rae [id number] [facility] 2021-10-04 Outpatient [facility] [id number] 12:39:26 [id number] [facility] 2021-07-09 Emergency [facility] [id number] Univers 06:11:16 ity [facility] 2021-07-09 Emergency [facility] [id number] Univers 02:50:36 ity [facility] 2021-07-08 Emergency [facility] [id number] Univers 19:31:11 ity [facility] 2021-07-08 Emergency [facility] [id number] Univers 10:55:04 ity [facility] 2021-07-08 Emergency [facility] [id number] Univers 07:44:33 ity [facility] 2021-07-07 Emergency [facility] [id number] Univers 16:10:59 ity of [facility] 2021-07-07 Emergency [facility] [id number] Univers 06:30:53 ity of [facility] 2021-11-08 2021-11-08 Refill [facility] [id number] Univers 00:00:00 00:00:00 Isidoro FORRESTER [id number] i [id number] [phone] Mt dical NAL [address] [place] [place] [address] 2021-08-09 2021-08-09 Refill [facility] 1.2.840.114 [id number] Univers 00:00:00 00:00:00 Isidoro FORRESTER [id number] i [id number] [phone] Mt dical NAL [address] [place] [place] [address] 2021-07-30 2021-07-30 Emergency X [facility] ERT [id number] Univers 11:11:00 13:07:00 STACIE ity of [facility] 2021-07-30 2021-07-30 Emergency [facility] [id number] Univers 11:11:00 13:07:00 Stacie FORRESTER [id number] ity of [facility] [id number] [phone] [place] [id number] [place] 2021-07-03 2021-07-03 Outpatient R DE [facility] [id number] Univers 15:00:00 15:00:[id number] [facility] 2021-06-29 2021-06-29 Telephone [facility] 1.2.840.114 [id number] Univers 00:00:00 00:00:00 Isidoro Forrester [id number] i [id number] [phone] Mt dical nal [address] [place] [address] 2021-06-13 2021-06-13 [facility] [id number] Univers 15:40:00 15:40:00 ISIDORO [id number] raeann [facility] 2021-06-13 2021-06-13 Outpatient [facility] [id number] Univers 15:40:00 15:40:00 ISDIORO raeann [facility] 2021-06-13 2021-06-13 Telephone [facility] 1.2.840.114 [id number] Univers 00:00:00 00:00:00 Isidoro Forrester [id number] [id number] [phone] Mt dical [address] 2021-05-24 2021-05-24 Outpatient [facility] [id number] Univers 15:20:00 15:13:44 MARCIO wilkinsonraeann [facility] 2021-05-24 2021-05-24 Imm/Inj Nurse, Adc Pob Immunization [facility] 1.2.840.114 [id number] Univers 15:12:58 15:13:44 Visit Marcio Edwards 350.1.13 .10 [id number] [phone] [facility] [address] [facility] 2021-05-24 2021-05-24 Telephone [facility] 1.2.840.114 [id number] Univers 00:00:00 00:00:00 Isidoro Forrester [id number] [id number] [phone] Mt dical nal [address] [place] [address] 2021-05-06 2021-05-06 [facility] 1.2.840.114 [id number] Univers 00:00:00 00:00:00 Isidoro Forrester 350.1.13.10 [id number] [phone] Mt dical nal [address] [place] [address] 2021-04-24 2021-04-24 Outpatient R SISSY [facility] [id number] Univers 13:00:00 13:00:00 SENDIL [id number] [facility] 2021-04-24 2021-04-24 Outpatient R SISSY [facility] [id number] Univers 13:00:00 13:00:00 SENDIL [facility] 2021-03-23 2021-03-23 Refill [facility] .2.840.114 [id number] Univers 00:00:00 00:00:00 Isidoro Forrester 350.1.13.10 [id number] [phone] Mt dicsc nal [address] [place] [address] 2021-03-17 2021-03-17 [facility] [id number] Univers 13:00:00 13:00:00 ISIDORO [id number] [facility] 2021-03-17 2021-03-17 Outpatient [facility] [id number] Univers 13:00:00 13:00:00 [facility] 2021-03-10 2021-03-10 Office [facility] 1.2.840.114 [id number] Univers 13:20:42 14:52:34 Visit Isidoro Forrester 350.1.13.10 i [id number] [phone] Mt dicsc nal [address] [place] [address] 2021-03-10 2021-03-10 Outpatient [facility] [id number] Univers 13:40:00 13:40:00 ISIDORO [id number] [facility] 2021-03-10 2021-03-10 Outpatient [facility] [id number] Univers 13:40:00 13:40:00 PETER [facility] 2021-02-24 2021-02-24 Refill [facility] .2.840.114 [id number] Univers 00:00:00 00:00:00 Isidoro Forrester 350.1.13.10 [id number] [phone] Mt dical nal 044 [facility] 2021-02-01 2021-02-01 Outpatient R EDRASHDI, [facility] [id number] Univers 13:00:00 13:00:00 ISIDORO [id number] [facility] 2021-02-01 2021-02-01 Outpatient [facility] [id number] Univers 13:00:00 13:00:00 ISIDORO [facility] 2021-01-26 2021-01-26 Outpatient [facility] [id number] Univers 13:00:00 13:00:00 ISIDORO [id number] [facility] 2021-01-26 2021-01-26 Outpatient [facility] [id number] Univers 13:00:00 13:00:00 ISIDORO [facility] 2021-01-25 2021-01-25 Outpatient R [facility] [id number] Univers 10:40:00 10:40:00 ISIDORO [id number] [facility] 2021-01-25 2021-01-25 Outpatient R [facility] [id number] Univers 10:40:00 10:40:00 ISIDORO [facility] 2021-01-06 2021-01-06 Outpatient R [facility] [id number] Univers 11:20:00 11:20:00 ISIDORO [id number] [facility] 2021-01-02 2021-01-02 Refill [facility] 1.2.840.114 [id number] Univers 00:00:00 00:00:00 Isidoro Forrester 350.1.13.10 [id number] [phone] Mt dical nal [address] [facility] 2020-12-23 2020-12-23 Outpatient R EDRASHID, [facility] [id number] Univers 16:20:00 16:20:00 ISIDORO [id number] [facility] 2020-12-09 2020-12-09 [employer] Fe[employer] 2, Adc Lab [facility] 1.2.840.114 [id number] Univers 11:49:13 12:04:13 Visit Isidoro Gentile 350.1.13.10 it[id number] [phone] Mt dical nal 353 [facility] 2020-12-09 2020-12-09 [facility] 1.2.840.114 [id number] [facility] [place] [facility] 10:46:37 11:56:32 Visit Isidoro Forrester 350.1.13.10 i [id number] [phone] [facility] 0[facility] 2020-12-09 2020-12-09 Outpatient [facility] [id number] Univers 11:00:00 11:00:00 ISIDORO [id number] [facility] 2020-12-09 2020-12-09 Outpatient R [facility] [id number] Univers 11:00:00 11:00:00 ISIDORO [facility] 2020-12-02 2020-12-02 Refill [facility] 1.2.840.114 [id number] Univers 00:00:00 00:00:00 Isidoro Forrester 350.1.13.10 [id number] [phone] [facility] 044 [facility] 2020-11-28 2020-11-28 Outpatient R SISSY [facility] [id number] Univers 14:00:00 14:00:00 SENDIL [id number] [facility] 2020-11-28 2020-11-28 Telephone [facility] 1.2.840.114 [id number] Univers 00:00:00 00:00:00 Isidoro Forrester 350.1.13.10 [id number] [phone] [address] 2020-11-26 2020-11-26 Telephone [facility] 1.2.840.114 [id number] Univers 00:00:00 00:00:00 Isidoro [facility] 350.1.13.10 it y of [place] 4.2.7.2.686 [place] Professio [phone] [address] Office Building One 2020-11-25 2020-11-25 Office [facility] 1.2.840.114 [id number] Univers 11:09:04 12:19:04 Visit Isidoro Forrester 350.1.13.10 i ty of [place] [phone] [address] 2020-11-25 2020-11-25 Outpatient R [facility] [id number] Univers 11:20:00 11:20:00 ISIDORO [id number] ity [facility] 2020-11-25 2020-11-25 Outpatient R [facility] [id number] Univers 11:20:00 11:20:00 ISIDORO [facility] 2020-11-23 2020-11-23 Transition Rafa Garcia 1.2.840.114 [id number] Univers 00:00:00 00:00:00 of Eloisa Judie Hermilo 350.1.13.10 it y of [place] [phone] [facility] 403 Branch 2020-11-21 2020-11-22 Emergency Jae Rocha [facility] 1.2.840. 114 [id number] Univers 18:05:00 17:44:00 Orly Burnett S [place] 350.1.13.10 ity of [place] 4.2.7.2.686 [facility] [phone] [facility] 081 Branch 2020-11-16 2020-11-16 Outpatient YARITZA, [facility] [id number] 930 [place] 00:00:00 00:00:00 [address] 2020-11-16 2020-11-16 Outpatient MANGIN, [facility] [id number] 923 [place] 00:00:00 00:00:[address] DAVID [address] 2020-11-09 2020-11-09 Emergency [facility] 1.2.840.114 [id number] Univers 11:54:00 14:57:00 Emigdio Lily [place] 350.1.13.10 ity [facility] 4[place]2.7.2.[place] [phone] [facility] 084 [place] 2020-11-09 2020-11-09 Office [facility] 1.2.840.114 [id number] Univers 11:04:56 11:41:17 Visit Isidoro Forrester 350.1.13.10 [place] [phone] Mt dical nal 044 [facility] 2020-11-09 2020-11-09 Outpatient [facility] [id number] Univers 11:20:00 11:20:00 ISIDORO [id number] [facility] 2020-11-09 2020-11-09 Outpatient [facility] [id number] Univers 11:20:00 11:20:00 ISIDORO [facility] 2020-11-08 2020-11-08 Office [facility] 1.2.840.114 [id number] Univers 10:40:00 11:00:00 Visit Isidoro Forrester 350.1.13.10 [place] [phone] Mt dical nal 044 [facility] 2020-11-08 2020-11-08 Outpatient [facility] [id number] Univers 10:40:00 10:40:00 ISIDORO [id number] [facility] 2020-11-08 2020-11-08 Outpatient [facility] [id number] Univers 10:40:00 10:40:00 ISIDORO [facility] 2020-11-02 2020-11-02 Outpatient R [facility] [id number] Univers 16:40:00 16:40:00 [id number] ity [facility] 2020-11-02 2020-11-02 [facility] [id number] Univers 16:40:00 16:40:00 MARLA ity [facility] 2020-11-02 2020-11-02 Urgent Provider, [facility] 1.2.840.114 [id number] Univers 15:49:00 16:26:17 Eloisa Marla Soares [facility] 350.1.13. 10 ity of [place] 4.2.7.2.686 [place] Professio [phone] [facility] 0[address] Branch Office [address] One 2020-11-01 2020-11-01 Outpatient R [facility] [id number] Univers 08:20:00 08:20:00 [id number] ity [facility] 2020-11-01 2020-11-01 Refisrrael [facility] ..840.114 [id number] Univers 00:00:00 00:00:00 Isidoro Forrester 350.1.13.10 [place] [phone] [place] [address] Branch Building 2020-10-26 2020-10-26 Outpatient [facility] [id number] Univers 14:40:00 14:40:00 ISIDORO [id number] [facility] 2020-10-18 2020-10-18 [facility] [id number] Univers 11:40:00 14:55:12 SHARAN ity [facility] 2020-10-18 2020-10-18 [facility] [id number] Univers 11:40:00 11:40:00 SHARAN [id number] [facility] 2020-10-07 2020-10-07 Transition Rafa De Jesus 1.2.840.114 [id number] Univers 00:00:00 00:00:00 of Eloisa Akhtar 350.1.13.10 i ty of [place] [phone] [facility] 403 Branch 2020-10-03 2020-10-05 Hospital Santos Blanchard [facility] 1.2.840.1 [id number] Univers 17:05:00 15:38:00 Encounter Darya Tate [place] 350.1.13.10 it[place] of [place] [phone] [facility] 081 Branch 2020-09-28 2020-09-28 [facility] 1.2.840.114 [id number] Univers 00:00:00 00:00:00 Isidoro Forrester 350.1.13.10 [place] [phone] [facility] 231 [facility] 2020-09-20 2020-09-20 Outpatient R KALI [facility] [id number] Univers 13:00:00 13:00:00 [facility] [id number] [facility] 2020-09-20 2020-09-20 [facility] [id number] Univers 13:00:00 12:56:54 SHARAN [facility] 2020-08-31 2020-08-31 Emergency [facility] ERT [id number] Univers 18:03:00 20:11:00 JAE [facility] 2020-08-31 2020-08-31 Emergency [facility] [id number] [id number] Univers 18:03:00 20:11:00 Jae Forrester [id number] [id number] [id number] [facility] [address] 2020-08-30 2020-08-30 [facility] [id number] Univers 15:21:29 23:59:00 Encounter Isidoro Forrester [id number] [id number] [id number] [facility] [address] 2020-08-30 2020-08-30 Outpatient R LUANA [facility] [id number] Univers 15:30:00 15:30:00 [facility] [id number] 2020-08-30 Outpatient R LUANA [facility] [id number] Univers 00:00:00 00:00:00 ISIDORO israel [facility] 2020-08-24 2020-08-24 Telephone [facility] 1.2.840.114 [id number] Univers 00:00:00 00:00:00 Isidoro Forrester 350.1.13.10 [place] [phone] Mt dical nal 231 [facility] 2020-08-20 2020-08-20 Emergency [facility] 1.2.840.114 [id number] Univers 14:34:00 15:24:00 Melida Forrester 350.1.13.10 [place] [phone] [facility] [address] 2020-08-10 2020-08-10 [employer] Feeder Cholo, Mireya Lab Main [facility] 1.2.8 40.114 [id number] Univers 13:41:13 13:56:13 Visit Isidoro Gentile 350.1.13.10 [place] [phone] Mt dical nal 353 [facility] 2020-08-10 2020-08-10 Outpatient R [facility] [id number] -20 Univers 13:45:00 13:45:00 [id number] it[facility] 2020-08-10 2020-08-10 [facility] [id number] Univers 13:45:00 13:45:00 ISIDORO [facility]rael [facility] 2020-08-09 2020-08-09 Office [facility] 1.2.840.114 [id number] Univers 10:41:01 11:56:25 Visit Isidoro Forrester 350.1.13.10 [place] [phone] Mt dical [address] 2020-08-09 2020-08-09 Outpatient R LUANA [facility] 7296 85P-20 Univers 10:40:00 10:40:00 ISIDORO ity [facility] 2020-08-09 2020-08-09 Outpatient R LUANA [facility] [id number] Univers 10:40:00 10:40:00 ISIDORO [facility] 2020-08-03 2020-08-03 Emergency [facility] [id number] [facility] 09:55:00 11:52:00 Blayne Forrester 350.1.13.10 [place] [phone] [address] 2020-05-26 2020-05-26 Telephone [facility] 1.2.840.114 [id number] Univers 00:00:00 00:00:00 Isidoro Forerster 350.1.13.10 [place] [phone] Mt dical nal [address] [place] [address] 2020-05-15 2020-05-15 Emergency [facility] 1.2.205.816 [id number] Univers 17:40:00 21:00:00 Stacie Forrester 350.1.13.10 [place] [phone] [address] 2020-05-06 2020-05-06 Telephone [facility] 1.2.840.114 [id number] Univers 00:00:00 00:00:00 Isidoro Forrester 350.1.13.10 [place] [phone] Mt dic[address] 2020-04-13 2020-04-13 Outpatient R LUANA [facility] 7296 85P-20 Univers 13:40:00 13:40:00 ISIDORO ity [facility] 2020-04-13 2020-04-13 Outpatient [facility] [id number] Univers 13:40:00 13:40:00 PETER ity of [facility] 2020-04-03 2020-04-03 Orders Doctor STELLA 1.2.840.114 [id number] Univers 00:00:00 00:00:00 Only Unassigned, KUNAL 350.1.13.10 ity of [place] [facility] 4.2.7.2.686 [place] [phone] [facility] [address] 2020-03-21 2020-03-21 Emergency [facility] 1.2.840.114 [id number] Univers 19:50:42 20:29:00 Melida Forrester 350.1.13.10 [place] [phone] [facility] [address] 2020-03-18 2020-03-18 Telephone [facility] 1.2.840.114 [id number] Univers 00:00:00 00:00:00 Isidoro Forrester 350.1.13.10 [place] [phone] [address] 2020-03-10 2020-03-10 Orders Doctor STELLA 1.2.840.114 [id number] Univers 00:00:00 00:00:00 Only Unassigned, KUNAL 350.1.13.10 ity of [place] [facility] 4.2.7.2.686 [place] [phone] [facility] [address] 2020-03-01 2020-03-01 Telephone [facility] 1.2.840.114 [id number] Univers 00:00:00 00:00:00 Isidoro Forrester 350.1.13.10 i [place] [phone] Mt dic[address] 2020-01-28 2020-01-28 Telephone [facility] 1.2.840.114 [id number] Univers 00:00:00 00:00:00 Isidoro Deleon 350.1.13.10 it y of [place] 4.2.7.2.686 [place] Professio [phone] Mt dic[address] Office [address] 2020-01-15 2020-01-15 Fe[employer] Feeder Cholo, Mireya Lab Main [facility] 1.2.8 40.114 [id number] Univers 08:56:43 09:11:43 Visit Isidoro Gentile 350.1.13.10 ity [facility] [place] [phone] Mt dical nal 353 [facility] 2020-01-15 2020-01-15 Outpatient R [facility] [id number] -20 Univers 08:45:00 08:45:00 [facility] 2020-01-15 2020-01-15 Outpatient [facility] [id number] Univers 08:45:00 08:45:00 ISIDORO [facility] 2020-01-15 2020-01-15 Orders Doctor STELLA 1.2.840.114 [id number] Univers 00:00:00 00:00:00 Only Unassigned, KUNAL 350.1.13.10 ity of [facility] 4.2.7.2.686 [place] as [phone] [address] 2020-01-13 2020-01-13 Outpatient R [facility] [id number] -[id number] Univers 14:00:00 14:00:00 [facility] 2020-01-12 2020-01-12 Office [facility] 1.2.840.114 [id number] Univers 15:30:35 16:26:43 Visit Isidoro Forrester 350.1.13.10 i ty [facility] [place] [phone] Mt dical nal 044 [facility] 2020-01-12 2020-01-12 Outpatient R JONIRICKFABRICIOBEN [facility] 7296 85P-20 Univers 15:40:00 15:40:00 ISIDORO ity [facility] 2020-01-12 2020-01-12 Outpatient [facility] 1026 [id number] Univers 15:40:00 15:40:00 ISIDORO itraeann [facility] 2020-01-12 2020-01-12 Outpatient [facility] 1026 [id number] Univers 15:40:00 15:40:00 ISIDORO wood [facility] 2020-01-05 2020-01-05 Nghia Gentile [facility] 1.2.840.114 [id number] Univers 00:00:00 00:00:00 Isidoro Forrester 350.1.13.10 [place] [phone] Mt dical nal 044 [facility] 2019-12-02 2019-12-02 Favio Mccormick [facility] 1.2.840.114 [id number] Univers 00:00:00 00:00:00 Gil Forrester 350.1.13.10 [place] [phone] Mt dical nal 231 [facility] Results Test Description Test Time Test Comments Results Result Comments Source THYROID STIMULATING HORMONE 2021-07-30 18:18:28 Test Item Value Reference Range Interpretation Comme nts TSH (test code = 9229704809) See_Comment [Automated message] The system which generated this result transmitted ref erence range: 0.45 - 4.70 mIU/L. T he reference range was not used to interpret this result as timbo l/abnormal. Lab Interpretation (test code = Normal 23791-6) [facility] [id number] 18:00:07 Test Item Value Reference Interpretation Comments Range TROPONIN I (test 0.003 ng/mL See_Comment [Automated code = 3819817537) message] The system which generated this result [...] biotin. Lab Interpretation Normal (test code = 09266-7) [facility] CHA-[id number] 17:56:46 Test Item Value Reference Range Interpretation Comments NT-proBNP (test code 228 pg/mL See_Comment H [Autom ated = 2962027865) message] The system which generated this result transmitted reference range : <=125. The reference range was not used to interpret this result as normal/abnormal . NIDIA (test code = NIDIA) Biotin has been reported to cause a negative bias, interpret results relative to patient's use of biotin. Lab Interpretation Abnormal (test code = 95225-2) [facility] CenterCARBAMAZEPINE2021-11-21 17:50:44 Test Item Value Reference Range Interpretation Comments CARBAMAZE (test code = 6.8 ug/mL 4.0-12.0 5647231349) NIDIA (test code = NIDIA) Toxic Range: ? Greater than 12 ug/mL Lab Interpretation (test Normal code = 23897-1) [facility] Center[facility]. METABOLIC PANEL (12588)2021-07-30 17:48:23 Test Item Value Reference Range Interpretation Comments NA (test code = 135 mmol/L 135-145 7156330289) K (test code = 3.5 mmol/L 3.5-5.0 0154996874) CL (test code = 105 mmol/L 98-108 3737627003) CO2 TOTAL (test code = 25 mmol/L 23-31 8029052201) AGAP (test code = 2-16 8973372703) BUN (test code = 11 mg/dL 7-23 7605764335) GLUCOSE (test code = 143 mg/dL 70-110 H 8366508202) CREATININE (test code = 0.87 mg/dL 0.60-1.25 0767018642) TOTAL BILI (test code = 0.2 mg/dL 0.1-1.6 7493048760) CALCIUM (test code = 8.2 mg/dL 8.6-10.6 L 1029562519) T PROTEIN (test code = 5.7 g/dL 6.3-8.2 L 1291394728) ALBUMIN (test code = 3.2 g/dL 3.5-5.0 L 6161289972) ALK PHOS (test code = 92 U/L 34-122 7099803269) ALTv (test code = 12 U/L 5-50 1742-6) AST(SGOT) (test code = 15 U/L 13-40 2295295043) eGFR (test code = mL/min/1.73m2 9027635176) NIDIA (test code = NIDIA) Association of [...] tests). Lab Interpretation Abnormal (test code = 63927-3) [facility] CenterLIPASE2021-11-21 17:47:43 Test Item Value Reference Range Interpretation Comments LIPASE (test code = 5686972271) 67 U/L 0-220 Lab Interpretation (test code = Normal 83339-5) [facility] CenterACTIVATED PARTIAL THRMPLAS [id number] 17:45:02 Test Item Value Reference Range Interpretation Comments APTT Patient (test See_Comment [Automat ed code = 3173-2) message] The system which generated this result transmitted reference range : 23 - 38 Seconds . The reference range was not used to interpr et this result as normal/abnormal . NIDIA (test code = NIDIA) The [facility] patient population mean normal value for aPTT is 30 seconds. Lab Interpretation Normal (test code = 36626-1) [facility] CenterPROTHROMBIN TIME / [id number] 17:43:06 Test Item Value Reference Range Interpretation [...] tions. Lab Interpretation (test Normal code = 83192-2) [facility] CenterCB WITH [id number] 17:35:02 Test Item Value Reference Range Interpretation Comments WBC (test code = See_Comment [Automated 6690-2) message] The sy stem which generated this result transmitted reference range : 4.20 - 10.70 10*3/?L. The reference range was not used to interpret this result as normal/abnormal . RBC (test code = See_Comment L [Automated 819-8) message] The sy stem which generated this [...] RDW-SD (test code = 44.5 fL 38.5-51.6 33251-0) RDW-CV (test code = 12.9 % 12.1-15.4 788-0) PLT (test code = See_Comment [Automated 777-3) message] The sy stem which generated this result transmitted reference range : 150 - 328 10*3/ ?L. The reference r tin was not used to interpret this result as normal/abnormal . MPV (test code = 10.0 fL 9.8-13.0 68170-5) NRBC/100 WBC (test See_Comment [Automat ed code = 9801142290) message] The system which generated this result transmitted reference range : 0.0 - 10.0 /100 WBCs. The refer ence range was not u sed to interpret th is result as normal/abnormal . NRBC x10^3 (test code <0.01 See_Comment [Auto mated = 3599881579) message] The s ystem which generated this result transmitted reference range : 10*3/?L. The reference range was not used to interpret this result as normal/abnormal . GRAN MAT (NEUT) % 80.2 % (test code = 770-8) IMM GRAN % (test code 0.70 % = 4993397826) LYMPH % (test code = 10.4 % 736-9) MONO % (test code = 7.5 % 5905-5) EOS % (test code = 0.6 % 713-8) BASO % (test code = 0.6 % 706-2) GRAN MAT x10^3(ANC) 7.84 10*3/uL 1.99-6.95 H (test code = 1906029216) IMM GRAN x10^3 (test 0.07 10*3/uL 0.00-0.06 H code = 7301220368) LYMPH x10^3 (test code 1.02 10*3/uL 1.09-3.23 L = 731-0) MONO x10^3 (test code 0.73 10*3/uL 0.36-1.02 = 742-7) EOS x10^3 (test code = 0.06 10*3/uL 0.06-0.53 711-2) BASO x10^3 (test code 0.06 10*3/uL 0.01-0.09 = 704-7) Lab Interpretation Abnormal (test code = 94573-9) [facility] CenterGLYCOSYLATED HEMOGLOBIN (A1C)2020-12-09 18:09:28 Test Item Value Reference Range Interpretation Comments HGB A1C (test code = 7.0 % 4.0-6.0 H 4548-4) NIDIA (test code = NIDIA) %A1C (NGSP) Interpretation (ADA)4.8-5.6 ? ? Normal or (Non-Diabetic Range)5.7-6.4 ? ? Increased Risk (Pre-Diabetic)>6.5 ?Diabetes Indicated Lab Interpretation Abnormal (test code = 98983-2) [facility] WITH [id number] 17:23:10 Test Item Value Reference Range Interpretation Comments WBC (test code = See_Comment [Automated message] 5990-2) The system Muzy generated this result transmitted ref erence range: 4.20 - 1 0.70 10*3/?L. The re ference range was not u sed to interpret this result as normal/abnor mal. RBC (test code = See_Comment [Automated message] 419-8) The system Muzy generated this result transmitted ref erence range: [...] RDW-SD (test code 43.0 fL 38.5-51.6 = 66309-1) RDW-CV (test code 13.2 % 12.1-15.4 = 788-0) PLT (test code = See_Comment [Automated message] 027-3) The system Muzy generated this result transmitted ref erence range: 150 - 32 8 10*3/?L. The re ference range was not u sed to interpret this result as normal/abnor mal. MPV (test code = 10.8 fL 9.8-13.0 95081-9) NRBC/100 WBC (test See_Comment [Automat ed message] code = 5035122877) The syste m which generated this result transmitted ref erence range: 0.0 - 10 .0 /100 WBCs. The refer ence range was not u sed to interpret this result as normal/abnor mal. NRBC x10^3 (test <0.01 See_Comment [Automated message] code = 3549979808) The syste m which generated this result transmitted ref erence range: 10*3/?L. The reference range was not used to interpr et this result as normal/abnormal . GRAN MAT (NEUT) % 67.4 % (test code = 770-8) IMM GRAN % (test 0.60 % code = 1108799541) LYMPH % (test code 22.5 % = 736-9) MONO % (test code 7.0 % = 5905-5) EOS % (test code = 1.6 % 713-8) BASO % (test code 0.9 % = 706-2) GRAN MAT 5.52 10*3/uL 1.99-6.95 x10^3(ANC) (test code = 5985144772) IMM GRAN x10^3 0.05 10*3/uL 0.00-0.06 (test code = 1297839654) LYMPH x10^3 (test 1.84 10*3/uL 1.09-3.23 code = 731-0) MONO x10^3 (test 0.57 10*3/uL 0.36-1.02 code = 742-7) EOS x10^3 (test 0.13 10*3/uL 0.06-0.53 code = 711-2) BASO x10^3 (test 0.07 10*3/uL 0.01-0.09 code = 704-7) [facility] GLUCOSE (AUTOMATED)2020-11-22 21:02:14 Test Item Value Reference Range Interpretation Comments POCT GLU (test code = 7378395289) 212 mg/dL 70-110 H Lab Interpretation (test code = Abnormal 54041-6) [facility] GLUCOSE (AUTOMATED)2020-11-22 16:32:17 Test Item Value Reference Range Interpretation Comments POCT GLU (test code = 7623766205) 135 mg/dL 70-110 H Lab Interpretation (test code = Abnormal 38403-8) [facility] CenterCORTISOL [id number] 16:31:22 Test Item Value Reference Range Interpretation Comments MARCELLE AM (test code = 5.5 ug/dL 4.5-23.0 3537212796) NIDIA (test code = NIDIA) Biotin has been reported to cause a positive bias, interpret results relative to patient's use of biotin. Lab Interpretation (test Normal code = 21716-2) [facility] GLUCOSE (AUTOMATED)2020-11-22 12:47:57 Test Item Value Reference Range Interpretation Comments POCT GLU (test code = 0187984846) 113 mg/dL 70-110 H Lab Interpretation (test code = Abnormal 53324-9) [facility] Metabolic Panel (NA, K, CL, CO2, GLUCOSE, BUN, CREATININE, CA)2020-11-22 09:25:33 Test Item Value Reference Range Interpretation Comments NA (test code = 136 mmol/L 135-145 7731383689) K (test code = 3.8 mmol/L 3.5-5.0 0317284799) CL (test code = 105 mmol/L 98-108 8017991594) CO2 TOTAL (test code = 26 mmol/L 23-31 3251352566) AGAP (test code = 2-16 2119496971) BUN (test code = 16 mg/dL 7-23 1477623367) GLUCOSE (test code = 116 mg/dL 70-110 H 0756521677) CREATININE (test code = 1.02 mg/dL 0.60-1.25 2324591911) CALCIUM (test code = 8.4 mg/dL 8.6-10.6 L 3472624699) eGFR Calculation mL/min/1.73m2 (Non-) (test code = 6882330272) eGFR Calculation mL/min/1.73m2 () (test code = 0457640392) NIDIA (test code = NIDIA) Association of [...] tests). Lab Interpretation Abnormal (test code = 85578-3) [facility] with [id number] 09:15:12 Test Item Value Reference Range Interpretation Comments WBC (test code = See_Comment [Automated 8241-2) message] The sy stem which generated this result transmitted reference range : 4.20 - 10.70 10*3/?L. The reference range was not used to interpret this result as normal/abnormal . RBC (test code = See_Comment [Automated 252-) message] The sy stem which generated this [...] RDW-SD (test code = 42.3 fL 38.5-51.6 43420-0) RDW-CV (test code = 12.9 % 12.1-15.4 788-0) PLT (test code = See_Comment [Automated 777-3) message] The sy stem which generated this result transmitted reference range : 150 - 328 10*3/ ?L. The reference r tin was not used to interpret this result as normal/abnormal . MPV (test code = 10.8 fL 9.8-13.0 82724-3) NRBC/100 WBC (test See_Comment [Automat ed code = 2065652741) message] The system which generated this result transmitted reference range : 0.0 - 10.0 /100 WBCs. The refer ence range was not u sed to interpret th is result as normal/abnormal . NRBC x10^3 (test code <0.01 See_Comment [Auto mated = 4117258716) message] The s ystem which generated this result transmitted reference range : 10*3/?L. The reference range was not used to interpret this result as normal/abnormal . GRAN MAT (NEUT) % 67.1 % (test code = 770-8) IMM GRAN % (test code 0.80 % = 8326704400) LYMPH % (test code = 21.4 % 736-9) MONO % (test code = 8.8 % 5905-5) EOS % (test code = 1.0 % 713-8) BASO % (test code = 0.9 % 706-2) GRAN MAT x10^3(ANC) 6.13 10*3/uL 1.99-6.95 (test code = 8115482143) IMM GRAN x10^3 (test 0.07 10*3/uL 0.00-0.06 H code = 1554741296) LYMPH x10^3 (test code 1.95 10*3/uL 1.09-3.23 = 731-0) MONO x10^3 (test code 0.80 10*3/uL 0.36-1.02 = 742-7) EOS x10^3 (test code = 0.09 10*3/uL 0.06-0.53 711-2) BASO x10^3 (test code 0.08 10*3/uL 0.01-0.09 = 704-7) Lab Interpretation Abnormal (test code = 51711-0) [facility] CenterXR CHEST 1 [id number] 05:13:38 No acute intrathoracic abnormality. Preliminary Report [...] reviewed this study and agree withthe above report.[facility] CenterAD / [facility] - DRUG SCREEN [id number] 01:26:42 Test Item Value Reference Range Interpretation Comments BENZO U (test code = Negative Negative 0141464748) SIDDHARTHA U (test code = Negative Negative 3469907490) AMPHET (test code = Negative Negative 4267774812) THC (test code = Negative Negative 4419250012) METHADONE (test code = Negative Negative 1765543767) Meth U (test code = Negative Negative 4509774568) OPIATES (test code = Negative Negative 7395204820) Cocaine Metabolite (test Negative Negative code = 1592730407) PROPOXY (test code = Negative Negative 9361736126) Tric U (test code = Negative Negative 6278951431) PCP (test code = Negative Negative 9738492212) OXYCOD (test code = Negative Negative 1004286374) NIDIA (test code = NIDIA) Urine Drug [...] testing). Lab Interpretation (test Normal code = 43720-9) [facility] CenterUrinalysis2021-03-16 01:19:53 Test Item Value Reference Range Interpretation Comments APPEARANCE (test code = Clear Clear 8785615854) COLOR (test code = Yellow Yellow 5248787690) PH (test code = 4.8-8.0 3301295328) SP GRAVITY (test code = 1.003-1.030 7337920824) GLU U QUAL (test code = Normal Normal 4007584873) BLOOD (test code = Negative Negative 1112683621) KETONES (test code = Negative Negative 1657083634) PROTEIN (test code = Negative Negative 2887-8) UROBILIN (test code = Normal Normal 5931697744) BILIRUBIN (test code = Negative Negative 2040987871) NITRITE (test code = Negative Negative 4219840330) LEUK RICK (test code = Negative Negative 9078815411) RBC/HPF (test code = See_Comment [Autom ated message] 7519165052) The system Muzy generated this result transmitted ref erence range: 0 - 3 HP F. The reference range was not used to int erpret this result as normal/abnormal . WBC/HPF (test code = See_Comment [Autom ated message] 6865992798) The system Muzy generated this result transmitted ref erence range: 0 - 5 HP F. The reference range was not used to int erpret this result as normal/abnormal . BACTERIA (test code = Negative Negative 6501851337) MUCOUS (test code = Slight Negative LPF A 7559017465) SQ EPITH (test code = <1 HPF 1643626750) HYAL CAST (test code = See_Comment H [Aut omated message] 8373089805) The system Muzy generated this result transmitted ref erence range: <=2 LPF. The reference range was not used to int erpret this result as normal/abnormal . Lab Interpretation (test Abnormal code = 09130-4) [facility] CenterSALICYLATE2021-03-16 01:04:56 Test Item Value Reference Range Interpretation Comments SALICYLATE (test code <10 mg/L = 0640509927) NIDIA (test code = NIDIA) Therapeutic Range: ? Analgesic and Antipyretic Use ? 20-100 mg/L ? ? Anti-Inflammatory Use ? 100-250 mg/L Toxic Range: ? Greater than 300 mg/L [facility] CenterACETAMINOPHEN2021-03-16 01:04:50 Test Item Value Reference Range Interpretation Comments ACETAMINOP (test code = <10.0 10.0-30.0 L 7301794137) NIDIA (test code = NIDIA) Toxic: Greater than 200 ug/mL @ 4 hour post ingestion or greater than 50 ug/mL @ 12 hour post ingestion Lab Interpretation (test Abnormal code = 06300-0) [facility] CenterCBC with [id number] 00:37:44 Test Item Value Reference Range Interpretation Comments WBC (test code = See_Comment H [Automated 6690-2) message] The sy stem which [...] RDW-SD (test code = 41.8 fL 38.5-51.6 72507-7) RDW-CV (test code = 13.0 % 12.1-15.4 788-0) PLT (test code = See_Comment [Automated 777-3) message] The sy stem which generated this result transmitted reference range : 150 - 328 10*3/ ?L. The reference r tin was not used to interpret this result as normal/abnormal . MPV (test code = 10.6 fL 9.8-13.0 39429-6) NRBC/100 WBC (test See_Comment [Automat ed code = 3069446772) message] The system which generated this result transmitted reference range : 0.0 - 10.0 /100 WBCs. The refer ence range was not u sed to interpret th is result as normal/abnormal . NRBC x10^3 (test code <0.01 See_Comment [Auto mated = 7945625460) message] The s ystem which generated this result transmitted reference range : 10*3/?L. The reference range was not used to interpret this result as normal/abnormal . GRAN MAT (NEUT) % 60.6 % (test code = 770-8) IMM GRAN % (test code 0.70 % = 3553977934) LYMPH % (test code = 30.2 % 736-9) MONO % (test code = 6.7 % 5905-5) EOS % (test code = 1.1 % 713-8) BASO % (test code = 0.7 % 706-2) GRAN MAT x10^3(ANC) 9.12 10*3/uL 1.99-6.95 H (test code = 3748120978) IMM GRAN x10^3 (test 0.10 10*3/uL 0.00-0.06 H code = 1142018704) LYMPH x10^3 (test code 4.54 10*3/uL 1.09-3.23 H = 731-0) MONO x10^3 (test code 1.00 10*3/uL 0.36-1.02 = 742-7) EOS x10^3 (test code = 0.16 10*3/uL 0.06-0.53 711-2) BASO x10^3 (test code 0.10 10*3/uL 0.01-0.09 H = 704-7) Lab Interpretation Abnormal (test code = 35773-6) [facility] CenterFREE [id number] 00:31:05 Test Item Value Reference Range Interpretation Comments FREE T4 (test code = See_Comment [Autom ated message] 8700303513) The system Muzy generated this result transmitted ref erence range: 0.78 - 2 .20 ng/dL:. The ref erence range was not u sed to interpret this result as normal/abnor mal. Lab Interpretation (test Normal code = 47846-3) [facility] CenterETHANOL2021-03-16 00:21:56 Test Item Value Reference Range Interpretation Comments ALCOHOL (test code = <10 mg/dL 9987419113) NIDIA (test code = NIDIA) <10 Gluizykl55-069 Toxic>100 Depression of NON FOOD RECEIVING CLERK>400 Fatalities Reported [facility] CenterHepatic Function Panel (ALB, T.PRO, BILI T, BU/BC, ALT, AST, ALK PHOS)2020-11-22 00:15:04 Test Item Value Reference Range Interpretation Comments TOTAL BILI (test code = 5385656367) 0.7 mg/dL 0.1-1.1 BILI UNCON (test code = 1164379885) 0.6 mg/dL 0.1-1.1 BILI CONJ (test code = 9718117124) 0.0 mg/dL 0.0-0.3 T PROTEIN (test code = 7990766871) 6.5 g/dL 6.3-8.2 ALBUMIN (test code = 5615339366) 3.9 g/dL 3.5-5.0 ALK PHOS (test code = 5192229019) 97 U/L 34-122 ALTv (test code = 1742-6) 17 U/L 5-50 AST(SGOT) (test code = 2449265101) 21 U/L 13-40 Lab Interpretation (test code = Normal 19485-2) [facility] (ID NOW RAPID TESTING)2020-11-22 00:15:04 Test Item Value Reference Range Interpretation Comments SARS-CoV-2 Rapid ID NOW Not Detected Not Detected (test code = 85771-3) NIDIA (test code = NIDIA) ID NOW COVID-19 Assay is an isothermal nucleic acid amplification test intended for the qualitative detection of nucleic acid from SARS-CoV-2 viral RNA in nasopharyngeal (ROTARY LITHOGRAPHIC PRESS OPERATOR) specimens. It is used under Emergency [...] indicated. Lab Interpretation Normal (test code = 72713-7) [facility] CenterTroponin [id number] 23:57:59 Test Item Value Reference Range Interpretation Comments TROPONIN I (test <0.012 See_Comment [Automated code = 9643101496) message] The system which generated this result [...] ? Lab Interpretation Normal (test code = 82216-9) [facility] CenterN-TERMINAL [id number] 23:54:56 Test Item Value Reference Range Interpretation Comments NT-proBNP (test code 114 pg/mL See_Comment [Autom ated = 5520461071) message] The system which generated this result transmitted reference range : <=125. The reference range was not used to interpret this result as normal/abnormal . NIDIA (test code = NIDIA) Biotin has been reported to cause a negative bias, interpret results relative to patient's use of biotin. Lab Interpretation Normal (test code = 43665-5) [facility] CenterMAGNESIUM2021-03-15 23:45:59 Test Item Value Reference Range Interpretation Comments MAGNESIUM (test code = 5833782172) 1.8 mg/dL 1.7-2.4 Lab Interpretation (test code = Normal 47499-1) [facility] CenterBasi Metabolic Panel (NA, K, CL, CO2, GLUCOSE, BUN, CREATININE, CA)2020-11-21 23:45:39 Test Item Value Reference Range Interpretation Comments NA (test code = 134 mmol/L 135-145 L 7004624344) K (test code = 4.0 mmol/L 3.5-5.0 0522719912) CL (test code = 102 mmol/L 98-108 4832894216) CO2 TOTAL (test code = 24 mmol/L 23-31 4129278999) AGAP (test code = 2-16 4567970559) BUN (test code = 13 mg/dL 7-23 9300662481) GLUCOSE (test code = 179 mg/dL 70-110 H 7240056543) CREATININE (test code = 1.11 mg/dL 0.60-1.25 6425853605) CALCIUM (test code = 8.8 mg/dL 8.6-10.6 7636889129) eGFR Calculation mL/min/1.73m2 (Non-) (test code = 4913279332) eGFR Calculation mL/min/1.73m2 () (test code = 6588052181) NIDIA (test code = NIDIA) Association of [...] tests). Lab Interpretation Abnormal (test code = 08078-9) [facility] CenterLipase [id number] 23:45:17 Test Item Value Reference Range Interpretation Comments LIPASE (test code = 8465613020) 49 U/L 0-220 Lab Interpretation (test code = Normal 08690-6) [facility] CenterCREATINE [id number] 23:44:57 Test Item Value Reference Range Interpretation Comments CK (test code = 8686448285) 52 U/L 33-194 Lab Interpretation (test code = Normal 76696-2) [facility] CenteraPTT2021-03-15 23:42:15 Test Item Value Reference Range Interpretation Comments APTT Patient (test See_Comment L [Automat ed code = 3173-2) message] The system which generated this result transmitted reference range : 23 - 38 Seconds . The reference range was not used to interpr et this result as normal/abnormal . NIDIA (test code = NIDIA) The [facility] patient population mean normal value for aPTT is 30 seconds. Lab Interpretation Abnormal (test code = 81345-6) [facility] CenterProthrombin Time (PT) / [id number] 23:40:14 Test Item Value Reference Range Interpretation [...] tions. Lab Interpretation (test Normal code = 82310-3) [facility] CenterAC PANEL 21 + LACTIC [id number] 23:39:54 Test Item Value Reference Range Interpretation Comments PH (test code = 7.32-7.42 H 2326980819) PCO2 ALLEN (test code = See_Comment L [Auto mated 0745245295) message] The sy stem which generated this result transmitted reference range : 41 - 51 mmHg. The reference range was not used to interpret this result as normal/abnormal . PO2 ALLEN (test code = See_Comment H [Autom ated 7847309112) message] The sy stem which generated this result transmitted reference range : 25 - 40 mmHg. The reference range was not used to interpret this result as normal/abnormal . HCO3 ALLEN (test code = See_Comment L [Auto mated 5252929616) message] The sy stem which generated this result transmitted reference range : 24 - 28 mEq/L. The reference range was not used to interpret this result as normal/abnormal . AC VBE(BEAKER) (test mEq/L code = 9259771541) THB ALLEN (test code = 15.9 g/dL 13.5-18.0 6928720799) %O2HB ALLEN (test code = 79.7 % 52.0-63.0 H 6230403823) %COHB ALLEN (test code = 6.1 % 0.0-1.5 H 9869138292) %METHB ALLEN (test code = 0.2 % 0.4-1.5 L 5283396835) VOL%O2 ALLEN (test code = 17.7 % 6.0-12.0 H 4592766569) NA (test code = 136 mmol/L 135-145 5030716222) K+ (test code = 3.7 mmol/L 3.5-5.0 7816537175) AC CA IONZ (test code = 4.20 mg/dL 4.50-5.30 L 2622512441) GLUCOSE (test code = 184 mg/dL 70-110 H 4931136574) LACTIC ACID (test code 2.04 mmol/L 0.50-2.20 = 5519424837) Lab Interpretation Abnormal (test code = 65470-8) [facility] CenterCOVID[facility]19 (ID NOW RAPID TESTING)2020-11-09 20:16:00 Test Item Value Reference Range Interpretation Comments SARS-CoV-2 Rapid ID NOW Not Detected Not Detected (test code = 44204-7) NIDIA (test code = NIDIA) ID NOW COVID-19 Assay is an isothermal nucleic acid amplification test intended for the qualitative detection of nucleic acid from SARS-CoV-2 viral RNA in nasopharyngeal (ROTARY LITHOGRAPHIC PRESS OPERATOR) specimens. It is used under Emergency [...] indicated. Lab Interpretation Normal (test code = 05256-0) [facility] CenterXR CHEST 1 [id number] 18:57:38 1. No radiographic evidence of acute [...] reviewed this study and agree with the abovereport.[facility] CenterTroponin [id number] 18:43:00 Test Item Value Reference Range Interpretation Comments TROPONIN I (test 0.003 ng/mL See_Comment [Automated code = 7338122048) message] The system which generated this result [...] ? Lab Interpretation Normal (test code = 03264-9) [facility] CenterN-TERMINAL [id number] 18:39:00 Test Item Value Reference Range Interpretation Comments NT-proBNP (test code 103 pg/mL See_Comment [Autom ated = 7271213526) message] The system which generated this result transmitted reference range : <=125. The reference range was not used to interpret this result as normal/abnormal . NIDIA (test code = NIDIA) Biotin has been reported to cause a negative bias, interpret results relative to patient's use of biotin. Lab Interpretation Normal (test code = 87897-3) [facility] CenterCOMP. METABOLIC PANEL (70626)2020-11-09 18:31:00 Test Item Value Reference Range Interpretation Comments NA (test code = 133 mmol/L 135-145 L 7760868409) K (test code = 4.2 mmol/L 3.5-5 0515731243) CL (test code = 97 mmol/L 98-108 L 1000425246) CO2 TOTAL (test code = 29 mmol/L 23-31 4496211551) AGAP (test code = 2-16 9353690983) BUN (test code = 16 mg/dL 7-23 3512625335) GLUCOSE (test code = 306 mg/dL 70-110 H 0403543013) CREATININE (test code = 1.07 mg/dL 0.6-1.25 9645736196) TOTAL BILI (test code = 0.3 mg/dL 0.1-1.4 8813938856) CALCIUM (test code = 8.9 mg/dL 8.6-10.6 0451326971) T PROTEIN (test code = 6.6 g/dL 6.3-8.2 5761551597) ALBUMIN (test code = 4.0 g/dL 3.5-5 5633836510) ALK PHOS (test code = 83 U/L 34-122 7291493543) ALTv (test code = 17 U/L 5-50 1742-6) AST(SGOT) (test code = 18 U/L 13-40 9595562089) eGFR Calculation mL/min/1.73m2 (Non-) (test code = 9219682893) eGFR Calculation mL/min/1.73m2 () (test code = 3731700009) NIDIA (test code = NIDIA) Association of [...] tests). Lab Interpretation Abnormal (test code = 71866-0) [facility] with Kmihwiehijee4890-28-00 18:22:00 Test Item Value Reference Range Interpretation Comments WBC (test code = See_Comment H [Automated 1390-2) message] The system which generated this result [...] RDW-SD (test code = 41.6 fL 38.5-51.6 36933-1) RDW-CV (test code = 13.0 % 12.1-15.4 788-0) PLT (test code = See_Comment [Automated 777-3) message] The system which generated this result transmit sadaf reference range : 150 - 328 10*3/ ?L. The reference range was not u sed to interpret th is result as normal/abnormal . MPV (test code = 10.4 fL 9.8-13 66443-3) NRBC/100 WBC (test See_Comment [Automat ed code = 6570192912) message] The system which generated this result transmit sadaf reference range : 0.0 - 10.0 /100 WBCs. The reference range was not used to interpret this result as normal/abnormal . NRBC x10^3 (test code <0.01 See_Comment [Auto mated = 3876538745) message] The system which generated this result transmit sadaf reference range : 10*3/?L. The reference range was not used to interpret this result as normal/abnormal . GRAN MAT (NEUT) % 79.5 % (test code = 770-8) IMM GRAN % (test code 0.60 % = 5475136434) LYMPH % (test code = 13.1 % 736-9) MONO % (test code = 5.4 % 5905-5) EOS % (test code = 1.0 % 713-8) BASO % (test code = 0.4 % 706-2) GRAN MAT x10^3(ANC) 10.70 10*3/uL 1.99-6.95 H (test code = 2985581386) IMM GRAN x10^3 (test 0.08 10*3/uL 0-0.06 H code = 4463720334) LYMPH x10^3 (test code 1.76 10*3/uL 1.09-3.23 = 731-0) MONO x10^3 (test code 0.72 10*3/uL 0.36-1.02 = 742-7) EOS x10^3 (test code = 0.13 10*3/uL 0.06-0.53 711-2) BASO x10^3 (test code 0.05 10*3/uL 0.01-0.09 = 704-7) Lab Interpretation Abnormal (test code = 23246-6) [facility] GLUCOSE (AUTOMATED)2020-10-05 18:10:00 Test Item Value Reference Range Interpretation Comments POCT GLU (test code = 2767682124) 186 mg/dL 70-110 H Lab Interpretation (test code = Abnormal 47113-7) [facility], [id number] 17:11:00 Test Item Value Reference Range Interpretation Comments AMMONIA (test code = 6344466577) <9 9-33 L Lab Interpretation (test code = Abnormal 65093-4) [facility] GLUCOSE (AUTOMATED)2020-10-05 14:01:00 Test Item Value Reference Range Interpretation Comments POCT GLU (test code = 4013944957) 214 mg/dL 70-110 H Lab Interpretation (test code = Abnormal 74770-9) [facility] Metabolic Panel (NA, K, CL, CO2, GLUCOSE, BUN, CREATININE, CA)2020-10-05 11:31:00 Test Item Value Reference Range Interpretation Comments NA (test code = 136 mmol/L 135-145 5181050258) K (test code = 4.1 mmol/L 3.5-5 9148307780) CL (test code = 108 mmol/L 98-108 5178049647) CO2 TOTAL (test code = 19 mmol/L 23-31 L 2210543710) AGAP (test code = 2-16 0657867221) BUN (test code = 15 mg/dL 7-23 6691821676) GLUCOSE (test code = 155 mg/dL 70-110 H 6170927545) CREATININE (test code = 0.76 mg/dL 0.6-1.25 2532573020) CALCIUM (test code = 8.7 mg/dL 8.6-10.6 9170817325) eGFR Calculation mL/min/1.73m2 (Non-) (test code = 8739310700) eGFR Calculation mL/min/1.73m2 () (test code = 1832108180) NIDIA (test code = NIDIA) Association of [...] tests). Lab Interpretation Abnormal (test code = 47711-2) [facility] with [id number] 10:58:00 Test Item Value Reference Range Interpretation Comments WBC (test code = See_Comment [Automated message] 4390-2) The system Muzy generated this result transmitted ref erence range: 4.20 - 1 0.70 10*3/?L. The re ference range was not u sed to interpret this result as normal/abnor mal. RBC (test code = See_Comment [Automated message] 463-8) The system Muzy generated this result transmitted ref erence range: [...] RDW-SD (test code 40.2 fL 38.5-51.6 = 18444-0) RDW-CV (test code 12.1 % 12.1-15.4 = 788-0) PLT (test code = See_Comment [Automated message] 697-3) The system Muzy generated this result transmitted ref erence range: 150 - 32 8 10*3/?L. The re ference range was not u sed to interpret this result as normal/abnor mal. MPV (test code = 10.8 fL 9.8-13 18136-7) NRBC/100 WBC (test See_Comment [Automat ed message] code = 0858802159) The syste m which generated this result transmitted ref erence range: 0.0 - 10 .0 /100 WBCs. The refer ence range was not u sed to interpret this result as normal/abnor mal. NRBC x10^3 (test <0.01 See_Comment [Automated message] code = 9507426614) The syste m which generated this result transmitted ref erence range: 10*3/?L. The reference range was not used to interpr et this result as normal/abnormal . GRAN MAT (NEUT) % 61.1 % (test code = 770-8) IMM GRAN % (test 0.60 % code = 0486052064) LYMPH % (test code 27.7 % = 736-9) MONO % (test code 8.8 % = 5905-5) EOS % (test code = 1.1 % 713-8) BASO % (test code 0.7 % = 706-2) GRAN MAT 5.77 10*3/uL 1.99-6.95 x10^3(ANC) (test code = 7468832282) IMM GRAN x10^3 0.06 10*3/uL 0-0.06 (test code = 2701234132) LYMPH x10^3 (test 2.62 10*3/uL 1.09-3.23 code = 731-0) MONO x10^3 (test 0.83 10*3/uL 0.36-1.02 code = 742-7) EOS x10^3 (test 0.10 10*3/uL 0.06-0.53 code = 711-2) BASO x10^3 (test 0.07 10*3/uL 0.01-0.09 code = 704-7) [facility] / [facility] - DRUG SCREEN [id number] 00:36:00 Test Item Value Reference Range Interpretation Comments BENZO U (test code = Negative Negative 7067310539) SIDDHARTHA U (test code = Negative Negative 9186032720) AMPHET (test code = Negative Negative 2902715552) THC (test code = Negative Negative 7794642367) METHADONE (test code = Negative Negative 3866532015) Meth U (test code = Negative Negative 7529579273) OPIATES (test code = Negative Negative 2549808238) Cocaine Metabolite (test Negative Negative code = 0294171085) PROPOXY (test code = Negative Negative 2926182825) Tric U (test code = Negative Negative 8980867963) PCP (test code = Negative Negative 3518609751) OXYCOD (test code = Negative Negative 5352600263) NIDIA (test code = NIDIA) Urine Drug [...] testing). Lab Interpretation (test Normal code = 92651-3) [facility] GLUCOSE (AUTOMATED)2020-10-04 22:56:00 Test Item Value Reference Range Interpretation Comments POCT GLU (test code = 8153453710) 133 mg/dL 70-110 H Lab Interpretation (test code = Abnormal 34959-5) [facility] GLUCOSE (AUTOMATED)2020-10-04 18:32:00 Test Item Value Reference Range Interpretation Comments POCT GLU (test code = 9085595297) 250 mg/dL 70-110 H Lab Interpretation (test code = Abnormal 57759-2) [facility] GLUCOSE (AUTOMATED)2020-10-04 14:13:00 Test Item Value Reference Range Interpretation Comments POCT GLU (test code = 7564225319) 136 mg/dL 70-110 H Lab Interpretation (test code = Abnormal 37508-9) [facility] (NA, K, CL, CO2, GLUCOSE, BUN, CREATININE, CA)2020-10-04 12:34:00 Test Item Value Reference Range Interpretation Comments NA (test code = 134 mmol/L 135-145 L 0174874412) K (test code = 4.2 mmol/L 3.5-5 5629543307) CL (test code = 103 mmol/L 98-108 8821673636) CO2 TOTAL (test code = 24 mmol/L 23-31 9716943696) AGAP (test code = 2-16 2175216820) BUN (test code = 15 mg/dL 7-23 3060424444) GLUCOSE (test code = 135 mg/dL 70-110 H 9021298261) CREATININE (test code = 0.92 mg/dL 0.6-1.25 7927024202) CALCIUM (test code = 8.7 mg/dL 8.6-10.6 3412234633) eGFR Calculation mL/min/1.73m2 (Non-) (test code = 5972646188) eGFR Calculation mL/min/1.73m2 () (test code = 0914432919) NIDIA (test code = NIDIA) Association of [...] tests). Lab Interpretation Abnormal (test code = 42759-0) [facility] WITH [id number] 11:59:00 Test Item Value Reference Range Interpretation Comments WBC (test code = See_Comment [Automated 1390-2) message] The sy stem which generated this [...] RDW-SD (test code = 39.8 fL 38.5-51.6 54532-3) RDW-CV (test code = 12.1 % 12.1-15.4 788-0) PLT (test code = See_Comment [Automated 777-3) message] The sy stem which generated this result transmitted reference range : 150 - 328 10*3/ ?L. The reference r tin was not used to interpret this result as normal/abnormal . MPV (test code = 10.4 fL 9.8-13 00798-7) NRBC/100 WBC (test See_Comment [Automat ed code = 0657147730) message] The system which generated this result transmitted reference range : 0.0 - 10.0 /100 WBCs. The refer ence range was not u sed to interpret th is result as normal/abnormal . NRBC x10^3 (test code <0.01 See_Comment [Auto mated = 8364900357) message] The s ystem which generated this result transmitted reference range : 10*3/?L. The reference range was not used to interpret this result as normal/abnormal . GRAN MAT (NEUT) % 72.5 % (test code = 770-8) IMM GRAN % (test code 0.60 % = 4385162351) LYMPH % (test code = 17.1 % 736-9) MONO % (test code = 8.0 % 5905-5) EOS % (test code = 1.0 % 713-8) BASO % (test code = 0.8 % 706-2) GRAN MAT x10^3(ANC) 7.47 10*3/uL 1.99-6.95 H (test code = 9330031589) IMM GRAN x10^3 (test 0.06 10*3/uL 0-0.06 code = 8757710394) LYMPH x10^3 (test code 1.76 10*3/uL 1.09-3.23 = 731-0) MONO x10^3 (test code 0.82 10*3/uL 0.36-1.02 = 742-7) EOS x10^3 (test code = 0.10 10*3/uL 0.06-0.53 711-2) BASO x10^3 (test code 0.08 10*3/uL 0.01-0.09 = 704-7) Lab Interpretation Abnormal (test code = 27675-4) [facility] CenterETHANOL2021-01-26 09:49:00 Test Item Value Reference Range Interpretation Comments ALCOHOL (test code = <10 mg/dL 5307207534) NIDIA (test code = NIDIA) <10 Mqrwkkon25-035 Toxic>100 Depression of NON FOOD RECEIVING CLERK>400 Fatalities Reported [facility] CenterXR CHEST 1 [id number] 04:23:11 No acute cardiopulmonary abnormality. Preliminary Report [...] this study and agree with theabove report. [facility] CenterURINALYSIS2021-01-26 02:03:00 Test Item Value Reference Range Interpretation Comments APPEARANCE (test code = Clear Clear 4212747897) COLOR (test code = Yellow Yellow 3755101556) PH (test code = 4.8-8.0 0392252904) SP GRAVITY (test code = 1.003-1.030 1021619326) GLU U QUAL (test code = 500 mg/dL Normal A 1219440679) BLOOD (test code = Negative Negative 8365189778) KETONES (test code = Negative Negative 1018265918) PROTEIN (test code = Negative Negative 2887-8) UROBILIN (test code = 4.0 mg/dL Normal A 0106266111) BILIRUBIN (test code = Negative Negative 9569797765) NITRITE (test code = Negative Negative 1978534759) LEUK RICK (test code = Negative Negative 1768178275) RBC/HPF (test code = <1 See_Comment [Autom ated message] 1882415782) The system Muzy generated this result transmit sadaf reference range : 0 - 3 HPF. The refe rence range was not u sed to interpret th is result as normal/abnormal . WBC/HPF (test code = See_Comment [Autom ated message] 5488520953) The system Muzy generated this result transmit sadaf reference range : 0 - 5 HPF. The refe rence range was not u sed to interpret th is result as normal/abnormal . BACTERIA (test code = Negative Negative 1853047870) MUCOUS (test code = Moderate Negative LPF A 8353874976) SQ EPITH (test code = <1 HPF 4498629414) HYAL CAST (test code = See_Comment H [Aut omated message] 8473249868) The system Muzy generated this result transmit sadaf reference range : <=2 LPF. The refere nce range was not u sed to interpret th is result as normal/abnormal . Lab Interpretation (test Abnormal code = 06749-7) [facility] CenterCOVID-19 (ID NOW RAPID TESTING)2020-10-04 01:12:00 Test Item Value Reference Range Interpretation Comments SARS-CoV-2 Rapid ID NOW Not Detected Not Detected (test code = 48411-1) NIDIA (test code = NIDIA) ID NOW COVID-19 Assay is an isothermal nucleic acid amplification test intended for the qualitative detection of nucleic acid from SARS-CoV-2 viral RNA in nasopharyngeal (ROTARY LITHOGRAPHIC PRESS OPERATOR) specimens. It is used under Emergency [...] indicated. Lab Interpretation Normal (test code = 94340-2) [facility] CenterTROPONIN [id number] 00:48:00 Test Item Value Reference Range Interpretation Comments TROPONIN I (test <0.012 See_Comment [Automated code = 8022090181) message] The system which generated this result [...] ? Lab Interpretation Normal (test code = 81855-9) [facility]. METABOLIC PANEL (43752)2020-10-04 00:43:00 Test Item Value Reference Range Interpretation Comments NA (test code = 134 mmol/L 135-145 L 5062820346) K (test code = 4.0 mmol/L 3.5-5 7963014498) CL (test code = 95 mmol/L 98-108 L 4178593026) CO2 TOTAL (test code = 28 mmol/L 23-31 1875204291) AGAP (test code = 2-16 2975844488) BUN (test code = 15 mg/dL 7-23 3985226012) GLUCOSE (test code = 280 mg/dL 70-110 H 7417159626) CREATININE (test code = 1.27 mg/dL 0.6-1.25 H 9286233755) TOTAL BILI (test code = 0.7 mg/dL 0.1-1.6 6733274055) CALCIUM (test code = 8.8 mg/dL 8.6-10.6 8204164353) T PROTEIN (test code = 6.8 g/dL 6.3-8.2 9676235510) ALBUMIN (test code = 4.0 g/dL 3.5-5 9935154428) ALK PHOS (test code = 91 U/L 34-122 9292026071) ALTv (test code = 13 U/L 5-50 1742-6) AST(SGOT) (test code = 24 U/L 13-40 2408233020) eGFR Calculation mL/min/1.73m2 (Non-) (test code = 6446256950) eGFR Calculation mL/min/1.73m2 () (test code = 9326489823) NIDIA (test code = NIDIA) Association of [...] tests). Lab Interpretation Abnormal (test code = 56049-1) [facility] 00:36[facility]00 Test Item Value Reference Range Interpretation Comments MAGNESIUM (test code = 1489819945) 1.7 mg/dL 1.7-2.4 Lab Interpretation (test code = Normal 77571-0) [facility] WITH [id number] 00:02:00 Test Item Value Reference Range Interpretation [...] RDW-SD (test code = 39.7 fL 38.5-51.6 14076-1) RDW-CV (test code = 12.2 % 12.1-15.4 788-0) PLT (test code = See_Comment [Automated 777-3) message] The system which generated this result transmit sadaf reference range : 150 - 328 10*3/ ?L. The reference range was not u sed to interpret th is result as normal/abnormal . MPV (test code = 10.7 fL 9.8-13 68938-5) NRBC/100 WBC (test See_Comment [Automat ed code = 4503685871) message] The system which generated this result transmit sadaf reference range : 0.0 - 10.0 /100 WBCs. The reference range was not used to interpret this result as normal/abnormal . NRBC x10^3 (test code <0.01 See_Comment [Auto mated = 3733820740) message] The system which generated this result transmit sadaf reference range : 10*3/?L. The reference range was not used to interpret this result as normal/abnormal . GRAN MAT (NEUT) % 87.7 % (test code = 770-8) IMM GRAN % (test code 0.70 % = 0466108995) LYMPH % (test code = 7.5 % 736-9) MONO % (test code = 3.5 % 5905-5) EOS % (test code = 0.1 % 713-8) BASO % (test code = 0.5 % 706-2) GRAN MAT x10^3(ANC) 12.69 10*3/uL 1.99-6.95 H (test code = 7547025968) IMM GRAN x10^3 (test 0.10 10*3/uL 0-0.06 H code = 8570015728) LYMPH x10^3 (test code 1.09 10*3/uL 1.09-3.23 = 731-0) MONO x10^3 (test code 0.51 10*3/uL 0.36-1.02 = 742-7) EOS x10^3 (test code = <0.03 0.06-0.53 L 711-2) BASO x10^3 (test code 0.07 10*3/uL 0.01-0.09 = 704-7) Lab Interpretation Abnormal (test code = 90739-7) [facility] CenterCT HEAD WO JULVLCMR8831-00-10 23:35:09 No acute intracranial abnormality.EXAM: CT HEAD [...] The calvariumand central skull base are unremarkable. Prmb, Radiant Results Inft User - 10/03/2020 5:36 [...] skull base are unremarkable.IMPRESSIONNo acute intracranial abnormality. [facility] CenterUrinalysis2020-12-24 02:04:00 Test Item Value Reference Range Interpretation Comments APPEARANCE (test code = Clear Clear 9828484923) COLOR (test code = Yellow Yellow 0360887797) PH (test code = 4.8-8.0 1197718194) SP GRAVITY (test code = 1.003-1.030 8149810757) GLU U QUAL (test code = Normal Normal 2919163370) BLOOD (test code = Negative Negative 8065907852) KETONES (test code = Negative Negative 7992930817) PROTEIN (test code = Negative Negative 2887-8) UROBILIN (test code = Normal Normal 2211458492) BILIRUBIN (test code = Negative Negative 0951772451) NITRITE (test code = Negative Negative 8787273741) LEUK RICK (test code = Negative Negative 0554268520) RBC/HPF (test code = <1 See_Comment [Autom ated message] 2301416536) The system Muzy generated this result transmitted ref erence range: 0 - 3 HP F. The reference range was not used to int erpret this result as normal/abnormal . WBC/HPF (test code = See_Comment [Autom ated message] 6041364700) The system Muzy generated this result transmitted ref erence range: 0 - 5 HP F. The reference range was not used to int erpret this result as normal/abnormal . BACTERIA (test code = Negative Negative 5830692792) MUCOUS (test code = Slight Negative LPF A 3270587154) HYAL CAST (test code = See_Comment H [Aut omated message] 2405017135) The system Muzy generated this result transmitted ref erence range: <=2 LPF. The reference range was not used to int erpret this result as normal/abnormal . Lab Interpretation (test Abnormal code = 22335-4) [facility] [id number] 02:02:00 Test Item Value Reference Range Interpretation Comments FREE T4 (test code = See_Comment [Autom ated message] 4558127890) The system Muzy generated this result transmitted ref erence range: 0.78 - 2 .20 ng/dL:. The ref erence range was not u sed to interpret this result as normal/abnor mal. Lab Interpretation (test Normal code = 87066-0) [facility]ET[facility]INOPHEN2020-12-24 01:51:00 Test Item Value Reference Range Interpretation Comments ACETAMINOP (test code = <10.0 10-30 L 5005015306) NIDIA (test code = NIDIA) Toxic: Greater than 200 ug/mL @ 4 hour post ingestion or greater than 50 ug/mL @ 12 hour post ingestion Lab Interpretation (test Abnormal code = 86395-9) [facility] CenterSALICYLATE2020-12-24 01:51:00 Test Item Value Reference Range Interpretation Comments SALICYLATE (test code <10 mg/L = 5585973534) NIDIA (test code = NIDIA) Therapeutic Range: ? Analgesic and Antipyretic Use ? 20-100 mg/L ? ? Anti-Inflammatory Use ? 100-250 mg/L Toxic Range: ? Greater than 300 mg/L [facility] CenterETHANOL2020-12-24 01:50:00 Test Item Value Reference Range Interpretation Comments ALCOHOL (test code = <10 mg/dL 0852702088) NIDIA (test code = NIDIA) <10 Dnjaygxn23-521 Toxic>100 Depression of NON FOOD RECEIVING CLERK>400 Fatalities Reported [facility] Met[facility] Panel (NA, K, CL, CO2, GLUCOSE, BUN, CREATININE, CA)2020-09-01 01:46:00 Test Item Value Reference Range Interpretation Comments NA (test code = 138 mmol/L 135-145 1554897519) K (test code = 4.3 mmol/L 3.5-5 0752499245) CL (test code = 104 mmol/L 98-108 7195045284) CO2 TOTAL (test code = 25 mmol/L 23-31 8589278920) AGAP (test code = 2-16 3856224917) BUN (test code = 10 mg/dL 7-23 1834735700) GLUCOSE (test code = 137 mg/dL 70-110 H 2374067106) CREATININE (test code = 0.94 mg/dL 0.6-1.25 5395937144) CALCIUM (test code = 8.8 mg/dL 8.6-10.6 7495088666) eGFR Calculation mL/min/1.73m2 (Non-) (test code = 8437421035) eGFR Calculation mL/min/1.73m2 () (test code = 2759509178) NIDIA (test code = NIDIA) Association of [...] tests). Lab Interpretation Abnormal (test code = 75577-1) [facility] CenterHepatic Function Panel (ALB, T.PRO, BILI T, BU/BC, ALT, AST, ALK PHOS)2020-09-01 01:46:00 Test Item Value Reference Range Interpretation Comments TOTAL BILI (test code = 8580963966) 0.3 mg/dL 0.1-1.1 BILI UNCON (test code = 3306054537) 0.3 mg/dL 0.1-1.1 BILI CONJ (test code = 7927689111) 0.0 mg/dL 0-0.3 T PROTEIN (test code = 3651750022) 6.3 g/dL 6.3-8.2 ALBUMIN (test code = 2720800119) 3.7 g/dL 3.5-5 ALK PHOS (test code = 9874436344) 88 U/L 34-122 ALTv (test code = 1742-6) 9 U/L 5-50 AST(SGOT) (test code = 2462145090) 17 U/L 13-40 Lab Interpretation (test code = Normal 08804-5) [facility] CenterCREATINE [id number] 01:46:00 Test Item Value Reference Range Interpretation Comments CK (test code = 8415536028) 67 U/L 33-194 Lab Interpretation (test code = Normal 00166-4) [facility] CenterAD / L[facility] - DRUG SCREEN [id number] 01:45:00 Test Item Value Reference Range Interpretation Comments BENZO U (test code = Negative Negative 7724094135) SIDDHARTHA U (test code = Negative Negative 5977458982) AMPHET (test code = Negative Negative 3004238469) THC (test code = Negative Negative 5315203879) METHADONE (test code = Negative Negative 6601749443) Meth U (test code = Negative Negative 0888090443) OPIATES (test code = Negative Negative 3016808243) Cocaine Metabolite (test Negative Negative code = 8986807271) PROPOXY (test code = Negative Negative 8500089212) Tric U (test code = Negative Negative 6665560102) PCP (test code = Negative Negative 6153459510) OXYCOD (test code = Negative Negative 1907073446) NIDIA (test code = NIDIA) Urine Drug [...] testing). Lab Interpretation (test Normal code = 56542-7) [facility] with [id number] 00:45:00 Test Item Value Reference Range Interpretation Comments WBC (test code = See_Comment H [Automated 6856-2) message] The sy stem which generated this result transmitted reference range : 4.20 - 10.70 10*3/?L. The reference range was not used to interpret this result as normal/abnormal . RBC (test code = See_Comment [Automated 352-8) message] The sy stem which generated this [...] RDW-SD (test code = 41.8 fL 38.5-51.6 70475-4) RDW-CV (test code = 12.7 % 12.1-15.4 788-0) PLT (test code = See_Comment [Automated 847-3) message] The sy stem which generated this result transmitted reference range : 150 - 328 10*3/ ?L. The reference r tin was not used to interpret this result as normal/abnormal . MPV (test code = 10.7 fL 9.8-13 38703-1) NRBC/100 WBC (test See_Comment [Automat ed code = 1621844542) message] The system which generated this result transmitted reference range : 0.0 - 10.0 /100 WBCs. The refer ence range was not u sed to interpret th is result as normal/abnormal . NRBC x10^3 (test code <0.01 See_Comment [Auto mated = 8137783292) message] The s ystem which generated this result transmitted reference range : 10*3/?L. The reference range was not used to interpret this result as normal/abnormal . GRAN MAT (NEUT) % 78.9 % (test code = 770-8) IMM GRAN % (test code 0.60 % = 3494555862) LYMPH % (test code = 13.3 % 736-9) MONO % (test code = 5.8 % 5905-5) EOS % (test code = 0.8 % 713-8) BASO % (test code = 0.6 % 706-2) GRAN MAT x10^3(ANC) 8.79 10*3/uL 1.99-6.95 H (test code = 7454694163) IMM GRAN x10^3 (test 0.07 10*3/uL 0-0.06 H code = 9211690365) LYMPH x10^3 (test code 1.48 10*3/uL 1.09-3.23 = 731-0) MONO x10^3 (test code 0.65 10*3/uL 0.36-1.02 = 742-7) EOS x10^3 (test code = 0.09 10*3/uL 0.06-0.53 711-2) BASO x10^3 (test code 0.07 10*3/uL 0.01-0.09 = 704-7) Lab Interpretation Abnormal (test code = 65946-2) [facility] CenterCT LUNG CANCER [id number] 21:57:03 1. Stable noncalcified bilateral pulmonary nodules [...] modifier: Coronary atherosclerosis, COPDand small pericardial effusion. [facility] CenterTROPONIN [id number] 17:18:00 Test Item Value Reference Range Interpretation Comments TROPONIN I (test <0.012 See_Comment [Automated code = 4581473353) message] The system which generated this result [...] ? Lab Interpretation Normal (test code = 53418-5) [facility] CenterCOMP. METABOLIC PANEL ([id number])2020-08-03 17:08:00 Test Item Value Reference Range Interpretation Comments NA (test code = 137 mmol/L 135-145 6963587508) K (test code = 3.7 mmol/L 3.5-5 5871036933) CL (test code = 104 mmol/L 98-108 8908330738) CO2 TOTAL (test code = 26 mmol/L 23-31 7252809849) AGAP (test code = 2-16 0654651197) BUN (test code = 10 mg/dL 7-23 7214125276) GLUCOSE (test code = 167 mg/dL 70-110 H 8197438524) CREATININE (test code = 0.79 mg/dL 0.6-1.25 8048603732) TOTAL BILI (test code = 0.3 mg/dL 0.1-1.7 8686387975) CALCIUM (test code = 9.1 mg/dL 8.6-10.6 8603797680) T PROTEIN (test code = 6.2 g/dL 6.3-8.2 L 7026900765) ALBUMIN (test code = 3.5 g/dL 3.5-5 6045845800) ALK PHOS (test code = 83 U/L 34-122 1948978846) ALTv (test code = 11 U/L 5-50 1742-6) AST(SGOT) (test code = 17 U/L 13-40 5749341005) eGFR Calculation mL/min/1.73m2 (Non-) (test code = 6565605945) eGFR Calculation mL/min/1.73m2 () (test code = 1710274792) NIDIA (test code = NIDIA) Association of [...] tests). Lab Interpretation Abnormal (test code = 77211-7) [facility] CenterLIPASE, [id number] 17:07:00 Test Item Value Reference Range Interpretation Comments LIPASE (test code = 4319042860) 75 U/L 0-220 Lab Interpretation (test code = Normal 34575-6) [facility] CenteraPTT2020-11-25 16:32:00 Test Item Value Reference Range Interpretation Comments APTT Patient (test See_Comment [Automat ed code = 3173-2) message] The system which generated this result transmitted reference range : 23 - 38 Seconds . The reference range was not used to interpr et this result as normal/abnormal . NIDIA (test code = NIDIA) The [facility] patient population mean normal value for aPTT is 30 seconds. Lab Interpretation Normal (test code = 47714-5) [facility] CenterPROTHROMBIN TIME / [id number] 16:30:00 Test Item Value Reference Range Interpretation [...] tions. Lab Interpretation (test Normal code = 64474-5) [facility] CenterXR CHEST 1 [id number] 16:26:44HISTORY: Chest pain. TECHNIQUE: 2 Portable AP [...] suspected.CONCLUSIONS: No signs of acute cardiopulmonary disease. [facility] WITH [id number] 16:20:00 Test Item Value Reference Range Interpretation Comments WBC (test code = See_Comment [Automated 1990-2) message] The sy stem which generated this result transmitted reference range : 4.20 - 10.70 10*3/?L. The reference range was not used to interpret this result as normal/abnormal . RBC (test code = See_Comment [Automated 269-8) message] The sy stem which generated this [...] RDW-SD (test code = 42.7 fL 38.5-51.6 02674-8) RDW-CV (test code = 13.0 % 12.1-15.4 788-0) PLT (test code = See_Comment [Automated 627-3) message] The sy stem which generated this result transmitted reference range : 150 - 328 10*3/ ?L. The reference r tin was not used to interpret this result as normal/abnormal . MPV (test code = 10.5 fL 9.8-13 37422-3) NRBC/100 WBC (test See_Comment [Automat ed code = 3433473990) message] The system which generated this result transmitted reference range : 0.0 - 10.0 /100 WBCs. The refer ence range was not u sed to interpret th is result as normal/abnormal . NRBC x10^3 (test code <0.01 See_Comment [Auto mated = 6049123672) message] The s ystem which generated this result transmitted reference range : 10*3/?L. The reference range was not used to interpret this result as normal/abnormal . GRAN MAT (NEUT) % 76.0 % (test code = 770-8) IMM GRAN % (test code 0.50 % = 5828652431) LYMPH % (test code = 15.3 % 736-9) MONO % (test code = 7.0 % 5905-5) EOS % (test code = 0.8 % 713-8) BASO % (test code = 0.4 % 706-2) GRAN MAT x10^3(ANC) 7.59 10*3/uL 1.99-6.95 H (test code = 0497516060) IMM GRAN x10^3 (test 0.05 10*3/uL 0-0.06 code = 7487319911) LYMPH x10^3 (test code 1.53 10*3/uL 1.09-3.23 = 731-0) MONO x10^3 (test code 0.70 10*3/uL 0.36-1.02 = 742-7) EOS x10^3 (test code = 0.08 10*3/uL 0.06-0.53 711-2) BASO x10^3 (test code 0.04 10*3/uL 0.01-0.09 = 704-7) Lab Interpretation Abnormal (test code = 93711-9) [facility] CenterUrinalysis2020-09-07 00:09:00 Test Item Value Reference Range Interpretation Comments APPEARANCE (test code = Clear Clear 1558379906) COLOR (test code = Yellow Yellow 5845440312) PH (test code = 4.8-8.0 2364587763) SP GRAVITY (test code = 1.003-1.030 3875946955) GLU U QUAL (test code = Normal Normal 7137305063) BLOOD (test code = Negative Negative 4503215613) KETONES (test code = Negative Negative 4151468539) PROTEIN (test code = Negative Negative 2887-8) UROBILIN (test code = Normal Normal 0099366522) BILIRUBIN (test code = Negative Negative 7266581445) NITRITE (test code = Negative Negative 8059190233) LEUK RICK (test code = Negative Negative 4141144052) RBC/HPF (test code = See_Comment H [Autom ated message] 1728078136) The system Mu[employer] generated this result transmitted ref erence range: 0 - 3 HP F. The reference range was not used to int erpret this result as normal/abnormal . WBC/HPF (test code = See_Comment [Autom ated message] 0435433300) The system Muzy generated this result transmitted ref erence range: 0 - 5 HP F. The reference range was not used to int erpret this result as normal/abnormal . BACTERIA (test code = Few Negative A 4077173586) MUCOUS (test code = Slight Negative LPF A 1812185989) Lab Interpretation (test Abnormal code = 62524-7) [facility] CenterAUTUMNPRISMA HEALTH GREENVILLE MEMORIAL HOSPITALFABBY [id number] 23:31:00 Test Item Value Reference Range Interpretation Comments TROPONIN I (test <0.012 See_Comment [Automated code = 5230065027) message] The system which generated this result [...] ? Lab Interpretation Normal (test code = 26916-3) [facility] CenteraPTT2020-09-06 23:23:00 Test Item Value Reference Range Interpretation Comments APTT Patient (test See_Comment [Automat ed code = 3173-2) message] The system which generated this result transmitted reference range : 23 - 38 Seconds . The reference range was not used to interpr et this result as normal/abnormal . NIDIA (test code = NIDIA) The [facility] patient population mean normal value for aPTT is 30 seconds. Lab Interpretation Normal (test code = 44189-7) [facility] CenterPROTHROMBIN TIME / [id number] 23:21:00 Test Item Value Reference Range Interpretation [...] tions. Lab Interpretation (test Normal code = 17951-8) [facility] CenterCOMP. METABOLIC PANEL ([id number])2020-05-15 23:20:00 Test Item Value Reference Range Interpretation Comments NA (test code = 138 mmol/L 135-145 5151997643) K (test code = 4.0 mmol/L 3.5-5 3983645670) CL (test code = 102 mmol/L 98-108 9517723874) CO2 TOTAL (test code = 30 mmol/L 23-31 4022825578) AGAP (test code = 2-16 9142272042) BUN (test code = 12 mg/dL 7-23 4550638779) GLUCOSE (test code = 121 mg/dL 70-110 H 8134429490) CREATININE (test code = 1.13 mg/dL 0.6-1.25 7700471785) TOTAL BILI (test code = 0.3 mg/dL 0.1-1.6 4217228960) CALCIUM (test code = 8.9 mg/dL 8.6-10.6 5587738523) T PROTEIN (test code = 6.3 g/dL 6.3-8.2 1969384281) ALBUMIN (test code = 3.7 g/dL 3.5-5 8142660592) ALK PHOS (test code = 78 U/L 34-122 5383331909) ALTv (test code = 22 U/L 5-50 1742-6) AST(SGOT) (test code = 21 U/L 13-40 3218919288) eGFR Calculation mL/min/1.73m2 (Non-) (test code = 5668167122) eGFR Calculation mL/min/1.73m2 () (test code = 7121884524) NIDIA (test code = NIDIA) Association of [...] tests). Lab Interpretation Abnormal (test code = 67412-0) [facility] CenterLIPASE, [id number] 23:20:00 Test Item Value Reference Range Interpretation Comments LIPASE (test code = 4445705313) 47 U/L 0-220 Lab Interpretation (test code = Normal 91646-0) [facility] CenterCREATINE [id number] 23:20:00 Test Item Value Reference Range Interpretation Comments CK (test code = 2524356206) 60 U/L 33-194 Lab Interpretation (test code = Normal 51004-6) [facility] CenterCBC WITH [id number] 23:06:00 Test Item Value Reference Range Interpretation Comments WBC (test code = See_Comment [Automated 9990-2) message] The sy stem which generated this result transmitted reference range : 4.20 - 10.70 10*3/?L. The reference range was not used to interpret this result as normal/abnormal . RBC (test code = See_Comment [Automated 748-8) message] The sy stem which generated this [...] RDW-SD (test code = 43.9 fL 38.5-51.6 48041-6) RDW-CV (test code = 13.4 % 12.1-15.4 788-0) PLT (test code = See_Comment [Automated 777-3) message] The sy stem which generated this result transmitted reference range : 150 - 328 10*3/ ?L. The reference r tin was not used to interpret this result as normal/abnormal . MPV (test code = 10.0 fL 9.8-13 50531-3) NRBC/100 WBC (test See_Comment [Automat ed code = 7564034609) message] The system which generated this result transmitted reference range : 0.0 - 10.0 /100 WBCs. The refer ence range was not u sed to interpret th is result as normal/abnormal . NRBC x10^3 (test code <0.01 See_Comment [Auto mated = 7266490347) message] The s ystem which generated this result transmitted reference range : 10*3/?L. The reference range was not used to interpret this result as normal/abnormal . GRAN MAT (NEUT) % 76.5 % (test code = 770-8) IMM GRAN % (test code 0.80 % = 7907986011) LYMPH % (test code = 13.0 % 736-9) MONO % (test code = 8.1 % 5905-5) EOS % (test code = 0.9 % 713-8) BASO % (test code = 0.7 % 706-2) GRAN MAT x10^3(ANC) 6.44 10*3/uL 1.99-6.95 (test code = 0074766333) IMM GRAN x10^3 (test 0.07 10*3/uL 0-0.06 H code = 5167767933) LYMPH x10^3 (test code 1.10 10*3/uL 1.09-3.23 = 731-0) MONO x10^3 (test code 0.68 10*3/uL 0.36-1.02 = 742-7) EOS x10^3 (test code = 0.08 10*3/uL 0.06-0.53 711-2) BASO x10^3 (test code 0.06 10*3/uL 0.01-0.09 = 704-7) Lab Interpretation Abnormal (test code = 33496-5) [facility] CenterTHYROID STIMULATING [id number] 15:15:00 Test Item Value Reference Range Interpretation Comments TSH (test code = See_Comment [Automated message] 5014603108) The system Muzy generated this result transmitted ref erence range: 0.45 - 4 .70 mIU/L. The refe rence range was not u sed to interpret this result as normal/abnor mal. Lab Interpretation (test Normal code = 68003-6) [facility] CenterTHYROID STIMULATING [id number] 15:15:00 Test Item Value Reference Range Interpretation Comments TSH (test code = See_Comment [Automated message] 8267028795) The system Muzy generated this result transmitted ref erence range: 0.45 - 4 .70 mIU/L. The refe rence range was not u sed to interpret this result as normal/abnor mal. Lab Interpretation (test Normal code = 19870-6) [facility] [id number] 15:01:00 Test Item Value Reference Range Interpretation Comments FREE T4 (test code = 5655998732) 0.88 ng/dL 0.78-2.2 Lab Interpretation (test code = Normal 95035-7) [facility] [id number] 15:01:00 Test Item Value Reference Range Interpretation Comments FREE T3 (test code = 9634559863) 3.70 pg/mL 2.77-5.27 Lab Interpretation (test code = Normal 27650-7) [facility] [id number] 15:01:00 Test Item Value Reference Range Interpretation Comments FREE T4 (test code = 9327345602) 0.88 ng/dL 0.78-2.2 Lab Interpretation (test code = Normal 63150-2) [facility] 15:01:00 Test Item Value Reference Range Interpretation Comments FREE T3 (test code = 0691902069) 3.70 pg/mL 2.77-5.27 Lab Interpretation (test code = Normal 71649-8) [facility] CenterURINALYSIS2020 14:59:00 Test Item Value Reference Range Interpretation Comments APPEARANCE (test code = Clear Clear 0363603015) COLOR (test code = Yellow Yellow 7296008086) PH (test code = 4.8-8.0 7277083484) SP GRAVITY (test code = 1.003-1.030 1860295117) GLU U QUAL (test code = Normal Normal 6780802262) BLOOD (test code = Negative Negative 6752789787) KETONES (test code = Negative Negative 6299379951) PROTEIN (test code = Negative Negative 2887-8) UROBILIN (test code = Normal Normal 9683554010) BILIRUBIN (test code = Negative Negative 6517522131) NITRITE (test code = Negative Negative 6221060501) LEUK RICK (test code = 25/uL Negative A 2769659948) RBC/HPF (test code = See_Comment [Autom ated message] 5530218214) The system Muzy generated this result transmitted ref erence range: 0 - 3 HP F. The reference range was not used to int erpret this result as normal/abnormal . WBC/HPF (test code = See_Comment [Autom ated message] 4423676453) The system Muzy generated this result transmitted ref erence range: 0 - 5 HP F. The reference range was not used to int erpret this result as normal/abnormal . BACTERIA (test code = Negative Negative 8074875373) MUCOUS (test code = Slight Negative LPF A 6545283799) SQ EPITH (test code = HPF 7845241821) Lab Interpretation (test Abnormal code = 93396-4) [facility] CenterURINALYSIS2020 14:59:00 Test Item Value Reference Range Interpretation Comments APPEARANCE (test code = Clear Clear 4023937393) COLOR (test code = Yellow Yellow 6696269438) PH (test code = 4.8-8.0 0502259114) SP GRAVITY (test code = 1.003-1.030 3360726527) GLU U QUAL (test code = Normal Normal 9943170348) BLOOD (test code = Negative Negative 1668000999) KETONES (test code = Negative Negative 1496702591) PROTEIN (test code = Negative Negative 2887-8) UROBILIN (test code = Normal Normal 0752368151) BILIRUBIN (test code = Negative Negative 2366605889) NITRITE (test code = Negative Negative 4883955079) LEUK RICK (test code = 25/uL Negative A 8787959088) RBC/HPF (test code = See_Comment [Autom ated message] 3873430835) The system Muzy generated this result transmitted ref erence range: 0 - 3 HP F. The reference range was not used to int erpret this result as normal/abnormal . WBC/HPF (test code = See_Comment [Autom ated message] 0322842964) The system Muzy generated this result transmitted ref erence range: 0 - 5 HP F. The reference range was not used to int erpret this result as normal/abnormal . BACTERIA (test code = Negative Negative 4752956389) MUCOUS (test code = Slight Negative LPF A 0566162675) SQ EPITH (test code = HPF 8683112759) Lab Interpretation (test Abnormal code = 53255-2) [facility]. METABOLIC PANEL (22466)2020-01-15 14:44:00 Test Item Value Reference Range Interpretation Comments NA (test code = 137 mmol/L 135-145 4350177979) K (test code = 4.7 mmol/L 3.5-5 3997321988) CL (test code = 102 mmol/L 98-108 3422696879) CO2 TOTAL (test code = 23 mmol/L 23-31 3161776028) AGAP (test code = 2-16 2364713616) BUN (test code = 14 mg/dL 7-23 1141813428) GLUCOSE (test code = 149 mg/dL 70-110 H 3936648103) CREATININE (test code = 0.84 mg/dL 0.6-1.25 0013854543) TOTAL BILI (test code = 0.6 mg/dL 0.1-1.8 2317763057) CALCIUM (test code = 9.5 mg/dL 8.6-10.6 6486932907) T PROTEIN (test code = 7.7 g/dL 6.3-8.2 9198400698) ALBUMIN (test code = 4.6 g/dL 3.5-5 0600356817) ALK PHOS (test code = 92 U/L 34-122 0383059234) ALTv (test code = 22 U/L 5-50 1742-6) AST(SGOT) (test code = 22 U/L 13-40 3125854069) eGFR Calculation mL/min/1.73m2 (Non-) (test code = 2229980188) eGFR Calculation mL/min/1.73m2 () (test code = 7044910958) NIDIA (test code = NIDIA) Association of [...] tests). Lab Interpretation Abnormal (test code = 40020-2) [facility] BranchLIP[facility] PAN[facility] (66168)(TOTAL CHOLESTEROL, TRIGLYCERIDES, HDL)2020-01-15 14:44:00 Test Item Value Reference Range Interpretation Comments CHOL (test code = 236 mg/dL 120-200 H 1332992357) HDL (test code = 53 mg/dL >40 2197386943) HDLC RATIO (test code = See_Comment [Au tomated message] 4009405116) The system Muzy generated this result transmit sadaf reference range : <=5.0. The refe rence range was not u sed to interpret th is result as normal/abnormal . TRIG (test code = 86 mg/dL 30-170 0487459215) LDL CHOL (test code = 166 mg/dL See_Comment H [Auto mated message] 64624-2) The system Mu[employer] generated this result transmit sadaf reference range : <=160. The refe rence range was not u sed to interpret th is result as normal/abnormal . VLDL (test code = 17 mg/dL 5-60 8158090578) Lab Interpretation (test Abnormal code = 26992-5) [facility]. METABOLIC PANEL ([id number])2020-01-15 14:44:00 Test Item Value Reference Range Interpretation Comments NA (test code = 137 mmol/L 135-145 2481319968) K (test code = 4.7 mmol/L 3.5-5 0951019714) CL (test code = 102 mmol/L 98-108 1535725840) CO2 TOTAL (test code = 23 mmol/L 23-31 8386589221) AGAP (test code = 2-16 1477354735) BUN (test code = 14 mg/dL 7-23 1228542117) GLUCOSE (test code = 149 mg/dL 70-110 H 2251084011) CREATININE (test code = 0.84 mg/dL 0.6-1.25 9577984219) TOTAL BILI (test code = 0.6 mg/dL 0.1-1.1 4975157147) CALCIUM (test code = 9.5 mg/dL 8.6-10.6 3588120481) T PROTEIN (test code = 7.7 g/dL 6.3-8.2 9688347748) ALBUMIN (test code = 4.6 g/dL 3.5-5 5240836668) ALK PHOS (test code = 92 U/L 34-122 4288451457) ALTv (test code = 22 U/L 5-50 1742-6) AST(SGOT) (test code = 22 U/L 13-40 2292455836) eGFR Calculation mL/min/1.73m2 (Non-) (test code = 0102282525) eGFR Calculation mL/min/1.73m2 () (test code = 1833306622) NIDIA (test code = NIDIA) Association of [...] tests). Lab Interpretation Abnormal (test code = 13409-0) [facility] (64596)(TOTAL CHOLESTEROL, TRIGLYCERIDES, HDL)2020-01-15 14:44:00 Test Item Value Reference Range Interpretation Comments CHOL (test code = 236 mg/dL 120-200 H 5390071560) HDL (test code = 53 mg/dL >40 2045323352) HDLC RATIO (test code = See_Comment [Au tomated message] 7221427203) The system Muzy generated this result transmit sadaf reference range : <=5.0. The refe rence range was not u sed to interpret th is result as normal/abnormal . TRIG (test code = 86 mg/dL 30-170 8543112299) LDL CHOL (test code = 166 mg/dL See_Comment H [Auto mated message] 18767-3) The system Muzy generated this result transmit sadaf reference range : <=160. The refe rence range was not u sed to interpret th is result as normal/abnormal . VLDL (test code = 17 mg/dL 5-60 7613220894) Lab Interpretation (test Abnormal code = 78054-7) [facility] (A1C)2020-01-15 14:43:00 Test Item [...] Indicated Lab Interpretation Abnormal (test code = 91375-7) [facility] (A1C)2020-01-15 14:43:00 Test Item [...] Indicated Lab Interpretation Abnormal (test code = 01109-9) [facility] WITH [id number] 14:40:00 Test Item Value Reference Range Interpretation Comments WBC (test code = See_Comment [Automated 5290-2) message] The sy stem which generated this [...] RDW-SD (test code = 40.7 fL 38.5-51.6 87707-5) RDW-CV (test code = 12.3 % 12.1-15.4 788-0) PLT (test code = See_Comment [Automated 777-3) message] The sy stem which generated this result transmitted reference range : 150 - 328 10*3/ ?L. The reference r tin was not used to interpret this result as normal/abnormal . MPV (test code = 10.4 fL 9.8-13 14425-9) NRBC/100 WBC (test See_Comment [Automat ed code = 6445407644) message] The system which generated this result transmitted reference range : 0.0 - 10.0 /100 WBCs. The refer ence range was not u sed to interpret th is result as normal/abnormal . NRBC x10^3 (test code <0.01 See_Comment [Auto mated = 1706515716) message] The s ystem which generated this result transmitted reference range : 10*3/?L. The reference range was not used to interpret this result as normal/abnormal . GRAN MAT (NEUT) % 69.1 % (test code = 770-8) IMM GRAN % (test code 0.70 % = 0703410593) LYMPH % (test code = 19.5 % 736-9) MONO % (test code = 8.2 % 5905-5) EOS % (test code = 1.5 % 713-8) BASO % (test code = 1.0 % 706-2) GRAN MAT x10^3(ANC) 6.16 10*3/uL 1.99-6.95 (test code = 1437920424) IMM GRAN x10^3 (test 0.06 10*3/uL 0-0.06 code = 8262199594) LYMPH x10^3 (test code 1.74 10*3/uL 1.09-3.23 = 731-0) MONO x10^3 (test code 0.73 10*3/uL 0.36-1.02 = 742-7) EOS x10^3 (test code = 0.13 10*3/uL 0.06-0.53 711-2) BASO x10^3 (test code 0.09 10*3/uL 0.01-0.09 = 704-7) Lab Interpretation Abnormal (test code = 46359-5) [facility] WITH [id number] 14:40:00 Test Item Value Reference Range Interpretation Comments WBC (test code = See_Comment [Automated 9590-2) message] The sy stem which generated this result transmitted reference range : 4.20 - 10.70 10*3/?L. The reference range was not used to interpret this result as normal/abnormal . RBC (test code = See_Comment [Automated 689-8) message] The sy stem which generated this [...] RDW-SD (test code = 40.7 fL 38.5-51.6 62348-7) RDW-CV (test code = 12.3 % 12.1-15.4 788-0) PLT (test code = See_Comment [Automated 777-3) message] The sy stem which generated this result transmitted reference range : 150 - 328 10*3/ ?L. The reference r tin was not used to interpret this result as normal/abnormal . MPV (test code = 10.4 fL 9.8-13 20095-3) NRBC/100 WBC (test See_Comment [Automat ed code = 9806979887) message] The system which generated this result transmitted reference range : 0.0 - 10.0 /100 WBCs. The refer ence range was not u sed to interpret th is result as normal/abnormal . NRBC x10^3 (test code <0.01 See_Comment [Auto mated = 0752232450) message] The s ystem which generated this result transmitted reference range : 10*3/?L. The reference range was not used to interpret this result as normal/abnormal . GRAN MAT (NEUT) % 69.1 % (test code = 770-8) IMM GRAN % (test code 0.70 % = 0431104324) LYMPH % (test code = 19.5 % 736-9) MONO % (test code = 8.2 % 5905-5) EOS % (test code = 1.5 % 713-8) BASO % (test code = 1.0 % 706-2) GRAN MAT x10^3(ANC) 6.16 10*3/uL 1.99-6.95 (test code = 4226573115) IMM GRAN x10^3 (test 0.06 10*3/uL 0-0.06 code = 1052390595) LYMPH x10^3 (test code 1.74 10*3/uL 1.09-3.23 = 731-0) MONO x10^3 (test code 0.73 10*3/uL 0.36-1.02 = 742-7) EOS x10^3 (test code = 0.13 10*3/uL 0.06-0.53 711-2) BASO x10^3 (test code 0.09 10*3/uL 0.01-0.09 = 704-7) Lab Interpretation Abnormal (test code = 53690-5) [facility]"
[2021-11-22 17:45] LABS: Urine Blood Negative (Negative); Urine Glucose Negative (Negative); Urine Protein Negative (Negative); Urine Specific Gravity >=1.030 (1.005-1.030)
[2021-11-22] MEDS ORDERED: LORAZEPAM 1 MG TABLET ONE (17:46)
[2021-11-22 18:08] LABS: Barbiturates NEGATIVE (NEGATIVE); Benzodiazepines NEGATIVE (NEGATIVE); Cocaine NEGATIVE (NEGATIVE); METHAMPHETAM NEGATIVE (NEGATIVE); Methadone NEGATIVE (NEGATIVE); Opiates NEGATIVE (NEGATIVE); Phencyclidine NEGATIVE (NEGATIVE); THC Cannibis NEGATIVE (NEGATIVE)
[2021-11-22 18:08] LABS: Absolute Lymphocytes (CBC) 1.2 K/uL (0.7-4.9); Hematocrit 41.5 % (39.6-49.0); Lymphocytes % 12.3 % (15.3-44.8); MPV 8.2 fL (7.6-11.3); RBC Red Blood Cell Count 4.49 M/uL (4.33-5.43)
[2021-11-22 18:11] LABS: Protime INR 1.05
[2021-11-22 19:11] LABS: ALT/SGPT 20 U/L (12-78); AST/SGOT 16 U/L (15-37); Albumin 3.7 g/dL (3.4-5.0); Alkaline Phosphatase 117 U/L (45-117); BUN Blood Urea Nitrogen 15 mg/dL (7-18); Bicarbonate 23 mmol/L (21-32); Bilirubin Total 0.2 mg/dL (0.2-1.0); Glucose Level 269 mg/dL (74-106); Potassium 4.6 mmol/L (3.5-5.1); Protein, Total 6.8 g/dL (6.4-8.2); Sodium Level 133 mmol/L (136-145)
[2021-11-22 19:12] LABS: Bilirubin Direct < 0.1 mg/dL (0-0.2)
--- NOTE | 2021-11-23 00:17 | ER ---
Nurse's Notes [facility] Name: Raghav Lipscomb Age: 61 yrs Sex: Male : 1960 Arrival Date: 11/22/2021 Time: 17:13 Bed 16 Private MD: Diagnosis: Suicidal ideations;Anxiety disorder, unspecified Presentation: 11/22 17:26 Chief complaint: Patient states: "I am having sever depression. I want to , but I am jd3 not wanting to hurt myself or suicidal.". Coronavirus screen: At this time, the client does not indicate any symptoms associated with coronavirus-19. Ebola Screen: No symptoms or risks identified at this time. Initial Sepsis Screen: Does the patient meet any 2 criteria? No. Patient's initial sepsis screen is negative. Does the patient have a suspected source of infection? No. Patient's initial sepsis screen is negative. Risk Assessment: Do you want to hurt yourself or someone else? Patient reports no desire to harm self or others. Note pt refusing to change into hospital attire. pt responding to triage nurse's questions with short abrupt answers and appears bothered/aggravated by triage admission questions. Onset of symptoms was November 22, 2021. 17:26 Method Of Arrival: Ambulatory j 17:26 Acuity: SINDY 3 jd3 Triage Assessment: 18:00 General: Appears in no apparent distress. comfortable, unkempt, Behavior is lr4 cooperative, anxious. Pain: Denies pain. Neuro: No deficits noted. Cardiovascular: No deficits noted. Respiratory: No deficits noted. Historical: - Allergies: 17:29 No Known Allergies; jd3 - PMHx: 17:29 Hypertensive disorder; Diabetes mellitus; jd3 - PSHx: 17:29 oral surgery; jd3 - Immunization history:: Adult Immunizations up to date. - Social history:: Smoking status: Patient reports the use of cigarette tobacco products, smokes one pack cigarettes per day. Screenin:59 Abuse screen: Denies threats or abuse. Nutritional screening: No deficits noted. lr4 Tuberculosis screening: No symptoms or risk factors identified. Fall Risk None identified. Assessment: 18:45 Reassessment: Patient states feeling better. Patient states symptoms have improved. lr4 11/23 00:43 Reassessment: Patient is alert, oriented x 3, equal unlabored respirations, skin ke1 warm/dry/pink. 01:00 Reassessment: Patient is alert, oriented x 3, equal unlabored respirations, skin ke1 warm/dry/pink. 01:24 Reassessment: Report given to nurse Santiago at [facility]. ke1 03:09 Reassessment: Patient wants to go outside to smoke, informed that he cannot smoke while ke1 admitted here. new order for nicotine patch, nicotine patch applied. Psych: 11/22 17:57 [place] Suicide Severity Screening: In the past month, have you wished you were lr4 or wished you could go to sleep and not wake up? Patient responds "yes." "In the past month, have you actually had any thoughts of killing yourself?" Patient responds "no." "In your lifetime, have you ever done anything, started to do anything, or prepared to do anything to end your life?" Patient responds "yes." Patient reports suicidal intent occurred greater than 3 months prior. Subjective: Patient's mood is irritable. Objective: Patient is cooperative, irritable, using poor eye contact. Interventions: Removed personal items and placed in bag. Patient placed in hospital gown. Urine collected and sent for urine drug test. Safety Checks: Door is open. Visitors are present. Pt denies substance abuse. Commitment:. Vital Signs: 17:31 BP 143 / 80; Pulse 93; Resp 18 S; Temp 98.8(TE); Pulse Ox 98% on R/A; Weight 86.18 kg jd3 (R); Height 5 ft. 11 in. (180.34 cm) (R); Pain 0/10; 21:32 BP 146 / 83; Pulse 82; Resp 18; Pulse Ox 98% on R/A; lr4 17:31 Body Mass Index 26.50 (86.18 kg, 180.34 cm) jd3 ED Course: 17:13 Patient arrived in ED. mr 17:19 Baljinder Carmen PA is PHCP. cp 17:19 Thee Christine DO is Attending Physician. cp 17:29 Triage completed. jd3 17:31 Arm band placed on. jd3 17:39 Kelle Lundberg, MALISSA is Primary Nurse. lr4 17:44 Urine Drug Screen Sent. mh5 17:55 Acetaminophen Sent. lr4 17:55 Basic Metabolic Panel Sent. lr4 17:55 CBC with Diff Sent. lr4 17:55 ETOH Level Sent. lr4 18:00 No provider procedures requiring assistance completed. Missed attempt(s): 20 gauge in lr4 left forearm. 18:01 Patient has correct armband on for positive identification. Placed in gown. Bed in low lr4 position. Call light in reach. Side rails up X 1. Adult w/ patient. Door closed. Noise minimized. Visitors limited. Warm blanket given. Verbal reassurance given. Head of bed. 18:01 by me, EKG done, by ED staff. lr4 18:03 Urine collected: clean catch specimen, clear. 5 19:03 COVID-19 SARS RT PCR (Document "Date of Onset" if Symptomatic) Sent. franny 19:03 SARS-COV-2 RT PCR Sent. franny 19:41 contacted [facility] Crisis Line spoke to Ramona to have a screener evaluate the [facility] patient. 11/23 00:22 faxed patient information to all available psych facilities. mw2 01:48 doc to doc from [facility]. mw2 02:04 administrative approval given by Casimiro Dove/ patient has been accepted to [facility]/ Dr. Gaitan accepted the patient in transfer. 04:15 Patient did not have IV access during this emergency room visit. as6 Administered Medications: 11/22 17:50 Drug: Ativan (LORazepam) 1 mg Route: PO; lr4 18:15 Follow up: Response: No adverse reaction; Marked relief of symptoms lr4 11/23 00:32 Drug: Ativan (LORazepam) 1 mg Route: PO; ke1 01:27 Follow up: Response: Anxiety decreased ke1 03:10 Drug: Nicotine Patch 21 mg/24 hr 1 patches Route: Transdermal; Site: anterior chest ke1 wall; Outcome: 11/22 18:01 Condition: stable lr4 11/23 00:17 ER care complete, transfer ordered by . cp 04:00 Discharge instructions given to EMS. as6 04:14 Transferred by ground EMS as6 04:15 Patient left the ED. as6 Signatures: Bethany Griffiths mr Baljinder Carmen PA PA cp Martinez, Maria 5 Kristian Drew RN RN Anup Duarte mw2 Juanito Schmidt RN RN as6 Farzana Smith RN RN Osman Amaya RN RN ke1 Kelle Lundberg RN RN lr4 Corrections: (The following items were deleted from the chart) 11/22 17:31 17:26 Risk Assessment: Do you want to hurt yourself or someone else? Patient reports jd3 desire/thoughts of hurting themselves or someone else. Provider notified. jd3 17:32 17:26 Acuity: SINDY 2 jd3 jd3 11/23 00:46 00:43 Reassessment: Patient is alert, oriented x 3, equal unlabored respirations, skin ke1 warm/dry/pink. ke1 00:46 00:46 Pain: Denies pain. ke1 ke1
--- NOTE | 2021-11-23 00:17 | EDPHYS ---
Physician Documentation [facility] Name: Raghav Lipscomb Age: 61 yrs Sex: Male : 1960 Arrival Date: 11/22/2021 Time: 17:13 Bed 16 Private MD: ED Physician Thee Christine HPI: 11/22 17:45 This 61 yrs old Male presents to ER via Ambulatory with complaints of Suicidal Ideation.cp 17:45 The patient presents to the emergency department with depression, suicide ideation, but cp the patient has no formulated plan. Onset: The symptoms/episode began/occurred gradually, and became worse today. Past psychiatric history: Prior diagnosis: depression, Psychiatric medications include: none. Associated signs and symptoms: The patient has no apparent associated signs or symptoms. Historical: - Allergies: 17:29 No Known Allergies; jd3 - PMHx: 17:29 Hypertensive disorder; Diabetes mellitus; jd3 - PSHx: 17:29 oral surgery; jd3 - Immunization history:: Adult Immunizations up to date. - Social history:: Smoking status: Patient reports the use of cigarette tobacco products, smokes one pack cigarettes per day. ROS: 17:50 Constitutional: Negative for body aches, chills, fever, poor PO intake. cp 17:50 Eyes: Negative for injury, pain, redness, and discharge. cp 17:50 ENT: Negative for drainage from ear(s), ear pain, sore throat, difficulty swallowing, difficulty handling secretions. 17:50 Cardiovascular: Negative for chest pain, edema, palpitations. 17:50 Respiratory: Negative for cough, shortness of breath, wheezing. 17:50 Abdomen/GI: Negative for abdominal pain, nausea, vomiting, and diarrhea. 17:50 Neuro: Negative for altered mental status, dizziness, headache, weakness. 17:50 Psych: Positive for depression, suicidal ideation, Negative for auditory hallucinations, visual hallucinations, suicide gesture. 17:50 All other systems are negative. Exam: 17:55 Constitutional: The patient appears in no acute distress, alert, awake, cp non-diaphoretic, non-toxic, well developed, well nourished, anxious. 17:55 Head/Face: Normocephalic, atraumatic. cp 17:55 Eyes: Periorbital structures: appear normal, Conjunctiva: normal, no exudate, no injection, Lids and lashes: appear normal, bilaterally. 17:55 ENT: External ear(s): are unremarkable, Nose: is normal, Mouth: Lips: moist, Oral mucosa: moist, Posterior pharynx: Airway: no evidence of obstruction, patent. 17:55 Neck: External neck: is normal, ROM/movement: is normal, is supple, without pain, no range of motions limitations. 17:55 Chest/axilla: Inspection: normal, Palpation: is normal, no crepitus, no tenderness. 17:55 Cardiovascular: Rate: normal, Rhythm: regular. 17:55 Respiratory: the patient does not display signs of respiratory distress, Respirations: normal, no use of accessory muscles, no retractions, labored breathing, is not present, Breath sounds: are clear throughout, no decreased breath sounds, no stridor, no wheezing. 17:55 Abdomen/GI: Inspection: abdomen appears normal, Palpation: abdomen is soft and non-tender, in all quadrants. 17:55 Neuro: Orientation: to person, place \\T\\ time. Mentation: is normal, Motor: moves all fours, strength is normal, Sensation: is normal. 17:55 Psych: Behavior/mood is cooperative, anxious, Affect is calm, Patient having thoughts of suicide. Denies suicidal plan. Judgement / Insight is normal. Delusions/hallucinations are not present. 18:07 ECG was reviewed by the Attending Physician. Vital Signs: 17:31 BP 143 / 80; Pulse 93; Resp 18 S; Temp 98.8(TE); Pulse Ox 98% on R/A; Weight 86.18 kg jd3 (R); Height 5 ft. 11 in. (180.34 cm) (R); Pain 0/10; 21:32 BP 146 / 83; Pulse 82; Resp 18; Pulse Ox 98% on R/A; lr4 17:31 Body Mass Index 26.50 (86.18 kg, 180.34 cm) jd3 MDM: 17:20 Patient medically screened. cp 18:00 Differential diagnosis: drug withdrawal. acute psychotic break, depression, psychosis cp secondary to non-compliance. 11/23 00:15 Data reviewed: vital signs, nurses notes, lab test result(s), EKG. 00:15 Test interpretation: by ED physician or midlevel provider: ECG. Other consultation: [facility] who recommends inpatient treatment and transfer to [facility] facility. 11/22 17:31 Order name: Acetaminophen 11/22 17:31 Order name: Basic Metabolic Panel 11/22 17:31 Order name: CBC with Diff 11/22 17:31 Order name: ETOH Level 11/22 17:31 Order name: Hepatic Function; Complete Time: 19:28 11/22 17:31 Order name: PT-INR; Complete Time: 18:23 11/22 17:31 Order name: Ptt, Activated; Complete Time: 18:23 11/22 17:31 Order name: Salicylate; Complete Time: 19:28 11/22 17:31 Order name: Urine Drug Screen; Complete Time: 18:23 11/22 19:29 Interpretation: Reviewed. 11/22 17:32 Order name: Acetaminophen Level; Complete Time: 19:28 EDMS 11/22 19:29 Interpretation: Reviewed. 11/22 17:32 Order name: Basic Metabolic Panel; Complete Time: 19:28 EDMS 11/22 19:28 Interpretation: Normal except: NA 133; GLUC 269; GFR 66; CA 8.4. 11/22 17:32 Order name: CBC with Automated Diff; Complete Time: 18:23 EDMS 11/22 18:23 Interpretation: Normal except: ELSIE% 79.5; LYM% 12.3. 11/22 17:32 Order name: Alcohol Serum/Plasma; Complete Time: 19:28 EDMS 11/22 19:29 Interpretation: Reviewed. 11/22 17:45 Order name: Urine Dipstick-Ancillary; Complete Time: 18:23 EDMS 11/22 17:31 Order name: EKG; Complete Time: 17:32 11/22 17:31 Order name: EKG - Nurse/Tech; Complete Time: 17:56 11/22 17:31 Order name: IV Saline Lock; Complete Time: 17:55 11/22 17:31 Order name: Labs collected and sent; Complete Time: 17:55 11/22 17:31 Order name: Suicide Screening (Merkel); Complete Time: 17:55 11/22 17:31 Order name: Urine Dipstick-Ancillary (obtain specimen); Complete Time: 17:44 11/22 18:57 Order name: COVID-19 SARS RT PCR (Document "Date of Onset" if Symptomatic) bd 11/22 18:57 Order name: SARS-COV-2 RT PCR; Complete Time: 01:46 EDMS EC/16 18:07 Rate is 79 beats/min. Rhythm is regular. MN interval is normal. QRS interval is normal. cp QT interval is normal. T waves are Inverted in lead aVR. Interpreted by me. Reviewed by me. Administered Medications: 17:50 Drug: Ativan (LORazepam) 1 mg Route: PO; lr4 18:15 Follow up: Response: No adverse reaction; Marked relief of symptoms lr4 11/23 00:32 Drug: Ativan (LORazepam) 1 mg Route: PO; ke1 01:27 Follow up: Response: Anxiety decreased ke1 03:10 Drug: Nicotine Patch 21 mg/24 hr 1 patches Route: Transdermal; Site: anterior chest ke1 wall; Disposition: 08:34 Co-signature as Attending Physician, Thee Christine DO I agree with the assessment and ms3 plan of care. Disposition Summary: 11/23/21 00:17 Transfer Ordered Transfer Location: Psych Facility cp Reason: Higher level of care cp Condition: Stable cp Problem: new cp Symptoms: have improved cp Accepting Physician: DR Gaitan(11/23/21 04:15) as6 Diagnosis - Suicidal ideations cp - Anxiety disorder, unspecified cp Forms: - Medication Reconciliation Form cp - SBAR form cp Signatures: Dispatcher [employer] EDMS Baljinder Carmen PA PA cp Davies, Jonathon, RN RN jd3 Sims, Marcus, DO DO ms3 Juanito Schmidt RN RN as6 Osman Reveles RN RN ke1 Kelle Lundberg RN RN lr4 Corrections: (The following items were deleted from the chart) 11/22 19:28 19:28 Normal except: NA 133; GLUC 269; GFR 66. cp cp 11/23 01:48 00:17 Doctor cp cp 04:15 01:48 DR Gaitan cp as6
[2021-11-23] MEDS ORDERED: LORAZEPAM 1 MG TABLET ONE (00:34)
[2021-11-23] MEDS ORDERED: NICOTINE 21 MG/PAT TD ONE (03:10)
[2021-11-23 04:42] VITALS: TEMP 98.8; O2SAT 98
[2021-11-23 04:44] VITALS: BP 146/83
--- NOTE | 2021-11-27 08:34 | EKG ---
Test Date: 2021-11-22 Test Time: 18:02:11 Trust Administrator: KACI MEASUREMENT RESULTS: Intervals: Rate: 79 SC: 180 QRSD: 88 QT: 384 QTc: 440 [place]: P: 65 SC: 180 QRS: 44 T: 70 INTERPRETIVE STATEMENTS: Normal sinus rhythm Anteroseptal infarct, age undetermined Abnormal ECG Compared to ECG 08/13/2021 13:30:24 Myocardial infarct finding now present AV dual-paced complex(es) or rhythm no longer present Electronically Signed On 11-27-21 08:24:21 CDT by Dima Mackenzie
== END 2021-11-23 04:15 ==
LOC: ER 17:08
DX: R45.851 Suicidal ideations (principal); F41.9 Anxiety disorder, unspecified; E11.9 Type 2 diabetes mellitus without complications; I10 Essential (primary) hypertension; F17.210 Nicotine dependence, cigarettes, uncomplicated; Z20.822 Contact with and (suspected) exposure to COVID-19
CPT/HCPCS: 93005; 85025; 80048; 36415; 80320; 80329 ×2; 85610; 80076; 85730; 81003; 80307; 99285; U0003